=== PATIENT | female | born 1945 | race Caucasian/White ===

== ENCOUNTER → 2020-04-15 10:50 | Outpatient (CLI) | payer MEDICARE, SELFPAY ==
--- NOTE | 2020-04-15 | DI.RAD.S_ITS ---
PROCEDURE: FL JOINT INJECTION LARGE RT INDICATIONS: OSTEOARTHRITIS COMPARISON: None. TECHNIQUE: The indications, alternatives, benefits, risks, and complications of the procedure were explained to the patient. Written informed consent was obtained and placed in the chart. The patient was placed in an appropriate position on the fluoroscopy table, and a site was chosen for percutaneous access under fluoroscopic guidance. The site was prepped and draped in a sterile fashion. Local anesthetic was administered using a 1% lidocaine solution. A hypodermic or spinal needle was then used to access the symptomatic joint. Intra-articular location of the needle tip was confirmed by injecting a small amount of contrast, followed by steroid administration. The needle was then withdrawn, and a bandage applied to the puncture site. FINDINGS: Joint injected: Right hip Medications injected: 1 mL of 40 mg/mL Kenalog and 3 mL of 0.5% Ropivacaine in total. Patient's pain before injection: 8 out of 10. Patient's pain after injection: 1 out of 10. Complications: None. IMPRESSION: Successful fluoroscopically guided administration of steroid and anaesthetic solution into the right hip joint. Dictated by: Keyur Soto M.D. on 04/15/2020 at 13:04 Approved by: Keyur Soto M.D. on 04/15/2020 at 13:04
== END ==
PROVIDERS: PCP Physician Assistant; Referring Provider Counselor Mental Health; Visit Provider Counselor Mental Health
DX: M16.11 Unilateral primary osteoarthritis, right hip (principal)
CPT/HCPCS: 20610; 77002

== ENCOUNTER 2020-08-25 16:01 | Emergency (ER) | payer MEDICARE, SELFPAY ==
[2020-08-25 16:11] VITALS: BP 155/68; PULSE 79; RESP 18; TEMP 37.1; O2SAT 96; BMI 45.4
[2020-08-25] MEDS: ONDANSETRON 4 MG ODT PO (16:45)
--- NOTE | 2020-08-25 17:40 | ED_ITS ---
HPI - Recheck/Abnormal Lab/Rx General Chief Complaint: Recheck/Abnormal Lab/Rx Stated Complaint: low back and right leg pain Time Seen by Provider: 08/25/20 16:32 Source: patient and family Mode of arrival: Wheelchair Limitations: no limitations History of Present Illness HPI narrative: Patient is a 74 year female. She is an insulin-dependent diabetic. Has had 2 months of right-sided lower back pain radiating to her right leg. She had an MRI yesterday at an outside facility ordered by her primary doctor. She does have a referral in to see a auto clutch specialist. She is on muscle relaxers and also gabapentin did. She states that over the past several days verses been worsening. No urinary symptoms. States the last evening she was up all night crying because the pain. She contacted her primary doctor's office today who told her that she may need something stronger than the gabapentin and that she needed to come to the emergency department in order to get a prescription for this. Related Data Previous Rx's Medication Instructions Recorded hydrocodone-acetaminophen [[place]] 1 tab PO Q4H PRN #20 tab 08/25/20 prednisone 20 mg PO DAILY 2 Days #2 tab 08/25/20 Allergies Allergy/AdvReac Type Severity Reaction Status Date / Time Penicillins Allergy Unknown Verified 08/25/20 16:41 Review of Systems Constitutional Constitutional: Denies fever(s) ENT Ears, Nose, Mouth, and Throat: Denies vertigo and Denies dizziness Cardiovascular Cardiovascular: Denies chest pain and Denies dyspnea Respiratory Respiratory: Denies dyspnea Musculoskeletal Musculoskeletal: Denies arthralgias and Reports back pain Integumentary/Breasts Skin/Breast: Denies rash Neurologic Neurologic: Denies vertigo and Denies dizziness Hematologic/Lymphatic On Anticoagulants: No Patient History Medical History Diabetes Social History marital status: lives independently: Yes Exam Initial Vital Signs Initial Vital Signs: Vital Signs Temperature 98.7 F 08/25/20 16:11 Pulse Rate 79 08/25/20 16:11 Respiratory Rate 18 08/25/20 16:11 Blood Pressure 155/68 H 08/25/20 16:11 Pulse Oximetry 96 08/25/20 16:11 Const General: cooperative and comfortable Resp Effort & Inspection: normal respiratory effort Cardio Rate: regular rate Back/Spine/Pelvis Thoracic/Lumbar Spine: paraspinal tenderness Skin Lesions: no lesions Rashes: no rashes Neuro General: patient alert and patient awake Cognition: normal cognition Sensory Exam: other (Posterior thigh decreased sensation to touch) Extrem General: capillary refill normal Psych Appearance: grossly normal Course Orders Ordered: Discontinued Medications Hydromorphone HCl (Hydromorphone 1 Mg Inj) 1 mg IM NOW ONE Stop: 08/25/20 17:41 Last Admin: 08/25/20 17:48 Dose: 1 mg Documented by: SHAY Ondansetron HCl (Ondansetron 4 Mg Odt) 4 mg PO NOW ONE Stop: 08/25/20 16:42 Last Admin: 08/25/20 16:45 Dose: 4 mg Documented by: SHAY Prednisone (Prednisone 20 Mg Tablet) 20 mg PO NOW ONE Stop: 08/25/20 17:41 Last Admin: 08/25/20 17:49 Dose: 20 mg Documented by: SHAY Vital Signs Vital signs: Vital Signs - 8 hr 08/25/20 16:11 08/25/20 17:47 08/25/20 17:48 Temperature 98.7 F Pulse Rate 79 64 66 Respiratory Rate 18 Blood Pressure 155/68 H Pulse Oximetry 96 97 98 08/25/20 17:49 Temperature Pulse Rate Respiratory Rate Blood Pressure 149/67 H Pulse Oximetry MDM - Recheck/Abnormal Lab/Rx Lab Data Attestation: I reviewed the patient's lab results. Labs: Urine Dip Bedside Urine Glucose Negative Bedside Urine Bilirubin - Negative Bedside Urine Ketone - Negative Urine Specific [place] 1.015 Bedside Urine Occult Blood - Negative Bedside Urine pH 6.0 Bedside Urine Protein - Negative Bedside Urine Urobilinogen - Negative Bedside Urine Nitrite - Negative Bedside Urine Leukocytes - Negative Esterase [facility] Narrative Medical decision making narrative: Patient has low back pain with right-sided radiculopathy that his been present for the past 2 months. Her symptoms today are not new just worse than prior. Plan will be is to give her some pain medicine here in the emergency department. Tomorrow is her last dose of Robaxin and she has been on this for 2 months without any improvements I told her that she most likely can stop this is it is not helping. I told talk with her prima ry doctor about increasing her gabapentin. Will put her on a very short course of steroids. She understands this could increase her blood sugars and she is going to check this at home on a regular basis. Will start her on some pain medication. She is going to contact her primary doctor and also her spine provider for follow-up to discuss the MRI results which are unavailable for me to evaluate as they were done in outside facility. She was given return precautions. No indication for emergent surgical consultation today. She expressed understanding and agreement. Discharge Plan Departure Patient Disposition: Home Clinical Impression: Lumbar back pain with radiculopathy affecting right lower extremity Instructions: Low Back Pain, Exercise May Reduce Risk of Low Back Pain Activity Restrictions/Additional Instructions: I recommend that you stop taking the methocarbamol/Robaxin tomorrow is this medicine is unlikely helping any of your symptoms. I recommend you talk with your primary doctor about increasing your gabapentin. Continue to stay as active as possible. Keep all of your scheduled medical appointments. Return to the emergency department for any new or worsening symptoms Prescriptions: New prednisone 20 mg tablet 20 mg PO DAILY 2 Days Qty: 2 RF: 0 hydrocodone-acetaminophen [[place]] 5-325 mg tablet 1 tab PO Q4H PRN (Reason: pain) Qty: 20 RF: 0 Referrals: Sweetie Shook PA-C [Primary Care Provider] -
[2020-08-25 17:47] VITALS: PULSE 64; O2SAT 97
[2020-08-25 17:48] VITALS: PULSE 66; O2SAT 98
[2020-08-25] MEDS: HYDROMORPHONE 1 MG INJ IM (17:48)
[2020-08-25 17:49] VITALS: BP 149/67
[2020-08-25] MEDS: predniSONE 20 MG TABLET PO (17:49)
== END 2020-08-25 18:03 | disposition home or self-care (01) ==
PROVIDERS: Emergency Provider Emergency Medicine; PCP Physician Assistant
DX: M54.16 Radiculopathy, lumbar region (principal); E11.8 Type 2 diabetes mellitus with unspecified complications; Z79.4 Long term (current) use of insulin
CPT/HCPCS: 81003; 96372; 99282; 99283; J1170

== ENCOUNTER 2021-02-24 10:07 | Emergency (ER) | payer MEDICARE, SELFPAY ==
[2021-02-24 10:23] VITALS: BP 192/92; PULSE 80; RESP 18; TEMP 36.7; O2SAT 95; BMI 47.0
[2021-02-24 10:57] LABS: Add Manual Diff / Slide Review NO; Basophils Absolute Auto 100 /uL (0-100); Basophils Percent Auto 0.8 % (0-2); Eosinophils Absolute Auto 200 /uL (0-450); Hematocrit 39.7 % (36-46); Hemoglobin 13.6 g/dL (12.0-16.0); Lymphocytes Absolute Auto 2500 /uL (1100-4500); Lymphocytes Percent Auto 31.1 % (25-40); Mean Corpuscular HGB Conc 34.2 % (30-36); Mean Corpuscular Hemoglobin 30.4 PG (26-34); Monocytes Absolute Auto 500 /uL (0-900); Monocytes Percent Auto 5.9 % (3-14); Neutrophils Absolute Auto 4700 /uL (1500-7000); Neutrophils Percent Auto 59.2 % (50-75); Platelet Count 198 X10^3/uL (150-400); Red Blood Cell Count 4.46 X10^6/uL (4.0-5.2); Red Cell Distribution Width 13.4 % (11.6-14.8); White Blood Cell Count 7.9 X10^3/uL (4.5-11.0)
[2021-02-24 11:15] LABS: Alanine Aminotransferase 17 IU/L (<35); Albumin Globulin Ratio 1.2 (1.0-2.8); Alkaline Phosphatase 114 U/L (38-126); Aspartate Aminotransferase 23 IU/L (14-36); BUN Creatinine Ratio 26.4 (6-22); Bilirubin Total 0.8 mg/dL (0.2-1.3); Blood Urea Nitrogen 23 mg/dL (7-17); Calcium 9.4 mg/dL (8.4-10.2); Carbon Dioxide 29 mmol/L (22-32); Chloride 101 mmol/L (98-107); Estimated Glomerular Filt Rate > 60.0 mL/min (>60); Globulin 3.4 g/dL (1.7-4.1); Glucose 272 mg/dL (80-110); HEMOLYSIS 48 (0-50); Potassium 4.4 mmol/L (3.4-5.1); Sodium 137 mmol/L (137-145); Total Protein 7.4 g/dL (6.3-8.2)
[2021-02-24] MEDS: HYDROMORPHONE 0.5 MG INJ IV (13:36)
[2021-02-24] MEDS: FUROSEMIDE 40 MG/4 ML VIAL IV (13:38)
[2021-02-24] MEDS: cefTRIAXone 2,000 MG in SODIUM CHLORIDE 0.9% 100 ML 200 ML IV (13:38)
[2021-02-24] MEDS: OXYCODONE/ACETAMINOPHEN 5/325 TABLET 1 TAB PO (14:52)
--- NOTE | 2021-02-24 14:58 | ED_ITS ---
HPI - Extremity Injury (Lower) General Chief Complaint: Extremity Injury, Lower Stated Complaint: problem with left leg, blisters and pain Time Seen by Provider: 02/24/21 13:14 History of Present Illness HPI Narrative: 75-year-old woman with history of diabetes hypertension lower extremity edema and depression presents with 2 2 months of increased swelling in the lower extremities and last number of days increasing erythema and last 2 days significant pain bilaterally worse on the left side with fascicular lesions and increasing rash over the left anterior [place]. She also has a history of fibromyalgia and notes that her overall pain has been worse as this lower extremity issue has increased. She was seen by her primary care physician and it was recommended that she try to keep her feet as elevated as possible to help with lower extremity edema. She has been only moderately successful in being able to do this. She does not report fevers, chills, weakness, orthopnea, dyspnea, chest pain, palpitations, abdominal pain, dysuria or constipation. Related Data Previous Rx's Medication Instructions Recorded hydrocodone 5 mg-acetaminophen 325 1 tab PO Q4H PRN #20 tab 08/25/20 mg tablet ([place]) cephalexin 500 mg capsule 500 mg PO TID #30 cap 02/24/21 furosemide 20 mg tablet (Lasix) 20 mg PO DAILY #30 tab 02/24/21 oxycodone-acetaminophen 5 mg-325 1 tab PO Q6H PRN #20 tab 02/24/21 mg tablet potassium chloride 8 mEq 8 meq PO DAILY #30 cap 02/24/21 capsule,extended release Allergies Allergy/AdvReac Type Severity Reaction Status Date / Time Penicillins Allergy Unknown Verified 08/25/20 16:41 Review of Systems Review of Systems Narrative: Remainder of complete review of systems is otherwise unremarkable except for that included in the HPI. Patient History Medical History Depression Diabetes Fibromyalgia Hyperlipidemia Hypertension Lower leg edema Peripheral neuropathy Social History marital status: lives independently: Yes Smoking Status: Never smoker Smoking Status: Never smoker Substance Use Type: does not use Exam Narrative Exam Narrative: General: Healthy appearing, in mild acute distress. Able to give a complete and coherent history. Well-nourished well-developed HEENT: Moist mucous membranes, normal sclera with reactive pupils, Neck: No JVD, supple Respiratory: Lungs are clear to auscultation, no wheezing no rales no rhonchi. Full and symmetrical air movement Cardiac: Regular rate and rhythm no murmurs no bruits Abdomen: Soft, nontender, good bowel tones, no flank pain Skin: Developing chronic venous stasis changes bilaterally. Erythema over the left anterior [place] with some bullous lesions appreciated in the distal portion of that. Neurologic: Grossly neurologically intact with no obvious asymmetries or abnormalities Extremities: No trauma, 1+ nonpitting edema Psych: Cooperative, appropriate insight and affect Initial Vital Signs Initial Vital Signs: Vital Signs Temperature 98.1 F 02/24/21 10:23 Pulse Rate 80 02/24/21 10:23 Respiratory Rate 18 02/24/21 10:23 Blood Pressure 192/92 H 02/24/21 10:23 Pulse Oximetry 95 02/24/21 10:23 Course Orders Ordered: Discontinued Medications Furosemide (Furosemide 40 Mg/4 Ml Vial) 40 mg IV NOW ONE Stop: 02/24/21 13:16 Last Admin: 02/24/21 13:38 Dose: 40 mg Documented by: YULIA Hydromorphone HCl (Hydromorphone 0.5 Mg Inj) 0.5 mg IV Q15MIN PRN PRN Reason: Pain, Last Admin: 02/24/21 13:36 Dose: 0.5 mg Documented by: YULIA Ceftriaxone Sodium 2,000 mg/ (Sodium Chloride) 100 mls @ 200 mls/hr IV NOW ONE Stop: 02/24/21 13:16 Last Infusion: 02/24/21 14:15 Dose: 0 mls/hr Documented by: Admin: 02/24/21 13:38 Dose: 200 mls/hr Documented by: YULIA Oxycodone/Acetaminophen (Oxycodone/Acetaminophen 5/325 Tablet) 1 tab PO NOW ONE Stop: 02/24/21 14:48 Last Admin: 02/24/21 14:52 Dose: 1 tab Documented by: JOSE Vital Signs Vital signs: Vital Signs - 8 hr 02/24/21 15:44 Pulse Rate 70 Respiratory Rate 18 Blood Pressure 136/80 Pulse Oximetry 98 MDM - Extremity Injury (Lower) Lab Data Result diagrams: 02/24/21 10:45 02/24/21 10:45 Labs: Lab Results 02/24/21 02/24/21 02/24/21 Range/Units 10:45 10:45 10:45 WBC 7.9 (4.5-11.0) X10^3/uL RBC 4.46 (4.0-5.2) X10^6/uL Hgb 13.6 (12.0-16.0) g/dL Hct 39.7 (36-46) % MCV 89.0 (80-100) fL MCH 30.4 (26-34) PG MCHC 34.2 (30-36) % RDW 13.4 (11.6-14.8) % Plt Count 198 (150-400) X10^3/uL Neut % (Auto) 59.2 (50-75) % Lymph % (Auto) 31.1 (25-40) % [place] % (Auto) 5.9 (3-14) % Eos % (Auto) 3.0 (2-4) % Baso % (Auto) 0.8 (0-2) % Neut # (Auto) 4700 (8799-4819) /uL Lymph # (Auto) 2500 (6065-0860) /uL [place] # (Auto) 500 (0-900) /uL Eos # (Auto) 200 (0-450) /uL Baso # (Auto) 100 (0-100) /uL Sodium 137 (137-145) mmol/L Potassium 4.4 (3.4-5.1) mmol/L Chloride 101 (98-107) mmol/L Carbon Dioxide 29 (22-32) mmol/L BUN 23 H (7-17) mg/dL Creatinine 0.87 (0.52-1.04) mg/dL Estimated GFR > 60.0 (>60) mL/min BUN/Creatinine Ratio 26.4 H (6-22) Glucose 272 H (80-110) mg/dL Lactate 2.0 (0.7-2.1) mmol/L Calcium 9.4 (8.4-10.2) mg/dL Total Bilirubin 0.8 (0.2-1.3) mg/dL AST 23 (14-36) IU/L ALT 17 (<35) IU/L Alkaline Phosphatase 114 (38-126) U/L Total Protein 7.4 (6.3-8.2) g/dL Albumin 4.0 (3.5-5.0) g/dL Globulin 3.4 (1.7-4.1) g/dL Albumin/Globulin Ratio 1.2 (1.0-2.8) MDM Narrative Medical decision making narrative: 75-year-old woman presents with left lower extremity cellulitis in the setting of 2 months of increasing lower extremity e yobany. No signs or symptoms of congestive heart failure. Labs today's do not suggest sepsis. She is given IV ceftriaxone and IV Lasix in the emergency department. Using this single dose of 0.5 mg of Dilaudid for her overall pain and notes significant relief of pain and being able to relax for the 1st time in a number of days. Discussed options of admission verses discharge with oral antibiotics and Lasix. She prefers discharge at this time. Will have her complete the course Keflex and will start her on 30 days of Lasix to help with the chronic lower extremity edema. Also rest commended leg elevation and compression socks. She will follow-up with her primary care physician in the next 1-2 weeks regarding both infection and renal function given the addition of Lasix. She is safe for home discharge Discharge Plan Departure Patient Disposition: Home Clinical Impression: Lower leg edema Cellulitis of lower extremity Qualifiers: Laterality: left Qualified Code(s): L03.116 - Cellulitis of left lower limb Instructions: DI for Cellulitis -- Adult, DI for Edema Due to Venous Stasis Activity Restrictions/Additional Instructions: Thank you for coming in today You are developing an infection in your left leg and you do need to complete the cephalexin, antibiotic, that I have prescribed and electronically transmitted to [facility] in [place]. You were given IV antibiotics in the emergency department so you can start the pills tomorrow. The infection is partly related to the increased lower extremity edema. I have given you a prescription for furosemide/Lasix which is a water pill. I would like you to take 1 every morning to try to get some of the fluid out of your lower extremities. This medicine makes your body get rid of extra potassium so I have also given you a prescription for potassium. Please take both of these pills at the same time. With these medications, you will need to have your kidney function and potassium levels checked within a couple of weeks. Please schedule an appointment with your primary care physician to have the blood work checked and be re-evaluated for the lower extremity swelling. Keeping your feet elevated can help with the swelling and using some type of compression sock will also be helpful. If you have increasing fevers, weakness any confusion worsening redness or new symptoms you do need to return to the emergency department. Prescriptions: New cephalexin 500 mg capsule 500 mg PO TID Qty: 30 RF: 0 oxycodone-acetaminophen 5-325 mg tablet 1 tab PO Q6H PRN (Reason: pain) Qty: 20 RF: 0 furosemide [Lasix] 20 mg tablet 20 mg PO DAILY Qty: 30 RF: 0 potassium chloride 8 mEq capsule, extended release 8 meq PO DAILY Qty: 30 RF: 0 No Action hydrocodone-acetaminophen [[place]] 5-325 mg tablet 1 tab PO Q4H PRN (Reason: pain) Qty: 20 RF: 0
[2021-02-24 15:44] VITALS: BP 136/80; PULSE 70; RESP 18; O2SAT 98
== END 2021-02-24 15:45 | disposition home or self-care (01) ==
PROVIDERS: Emergency Provider Emergency Medicine
DX: L03.116 Cellulitis of left lower limb (principal); R60.0 Localized edema; R21 Rash and other nonspecific skin eruption
CPT/HCPCS: 80053; 83605; 85025; 96365; 96375; 99284; J0696; J1170; J1940

== ENCOUNTER → 2021-05-03 12:29 | Outpatient (CLI) | payer MEDICARE, SELFPAY ==
[2021-05-03 13:55] LABS: Add Manual Diff / Slide Review NO; Basophils Absolute Auto 0 /uL (0-100); Basophils Percent Auto 0.3 % (0-2); Eosinophils Absolute Auto 200 /uL (0-450); Eosinophils Percent Auto 2.2 % (2-4); Lymphocytes Absolute Auto 3000 /uL (1100-4500); Lymphocytes Percent Auto 29.1 % (25-40); Mean Corpuscular HGB Conc 33.5 % (30-36); Mean Corpuscular Hemoglobin 30.1 PG (26-34); Mean Corpuscular Volume 89.8 fL (80-100); Monocytes Absolute Auto 600 /uL (0-900); Monocytes Percent Auto 5.7 % (3-14); Neutrophils Absolute Auto 6500 /uL (1500-7000); Neutrophils Percent Auto 62.7 % (50-75); Platelet Count 234 X10^3/uL (150-400); Red Blood Cell Count 4.67 X10^6/uL (4.0-5.2); Red Cell Distribution Width 13.4 % (11.6-14.8); White Blood Cell Count 10.4 X10^3/uL (4.5-11.0)
[2021-05-03 14:19] LABS: Alanine Aminotransferase 15 IU/L (<35); Albumin 4.4 g/dL (3.5-5.0); Albumin Globulin Ratio 1.3 (1.0-2.8); Alkaline Phosphatase 108 U/L (38-126); Aspartate Aminotransferase 17 IU/L (14-36); Bilirubin Total 0.8 mg/dL (0.2-1.3); Blood Urea Nitrogen 15 mg/dL (7-17); Calcium 9.5 mg/dL (8.4-10.2); Carbon Dioxide 31 mmol/L (22-32); Chloride 101 mmol/L (98-107); Estimated Glomerular Filt Rate > 60.0 mL/min (>60); Globulin 3.3 g/dL (1.7-4.1); Glucose 212 mg/dL (80-110); HEMOLYSIS < 15 (0-50); Sodium 141 mmol/L (137-145); Total Protein 7.7 g/dL (6.3-8.2)
[2021-05-03 15:59] LABS: COVID19 -Nasal RAPID Negative (Negative)
== END ==
PROVIDERS: Referring Provider Physician Assistant; Visit Provider Physician Assistant
DX: R10.9 Unspecified abdominal pain (principal); Z20.822 Contact with and (suspected) exposure to COVID-19
CPT/HCPCS: 36415; 80053; 85025; 87635

== ENCOUNTER → 2021-09-21 13:42 | Outpatient (CLI) | payer MEDICARE, SELFPAY ==
--- NOTE | 2021-09-21 | DI.RAD.S_ITS ---
PROCEDURE: XR CHEST 2V INDICATIONS: cough TECHNIQUE: 2 views of the chest were acquired. COMPARISON: None. FINDINGS: Surgical changes and devices: None. Lungs and pleura: Lungs are clear. No pleural effusions or pneumothorax. Mediastinum: Mediastinal contours are normal. Heart size is normal. Bones and chest wall: No suspicious bony abnormalities. Soft tissues appear unremarkable. IMPRESSION: No acute cardiopulmonary abnormality. Dictated by: Jarek Cordova M.D. on 09/21/2021 at 14:36 Approved by: Jarek Cordova M.D. on 09/21/2021 at 14:36
[2021-09-21 15:47] LABS: Add Manual Diff / Slide Review NO; Basophils Absolute Auto 0 /uL (0-100); Basophils Percent Auto 0.3 % (0-2); Eosinophils Absolute Auto 300 /uL (0-450); Eosinophils Percent Auto 3.2 % (2-4); Hematocrit 39.3 % (36-46); Hemoglobin 13.5 g/dL (12.0-16.0); Lymphocytes Absolute Auto 3300 /uL (1100-4500); Lymphocytes Percent Auto 35.6 % (25-40); Mean Corpuscular HGB Conc 34.3 % (30-36); Mean Corpuscular Hemoglobin 30.6 PG (26-34); Mean Corpuscular Volume 89.1 fL (80-100); Monocytes Absolute Auto 500 /uL (0-900); Monocytes Percent Auto 5.7 % (3-14); Neutrophils Absolute Auto 5100 /uL (1500-7000); Neutrophils Percent Auto 55.2 % (50-75); Platelet Count 221 X10^3/uL (150-400); Red Blood Cell Count 4.41 X10^6/uL (4.0-5.2); Red Cell Distribution Width 13.3 % (11.6-14.8); White Blood Cell Count 9.3 X10^3/uL (4.5-11.0)
[2021-09-21 16:14] LABS: Alanine Aminotransferase 13 IU/L (<35); Albumin 3.7 g/dL (3.5-5.0); Albumin Globulin Ratio 1.3 (1.0-2.8); Alkaline Phosphatase 122 U/L (38-126); Aspartate Aminotransferase 15 IU/L (14-36); BUN Creatinine Ratio 17.2 (6-22); Bilirubin Total 0.7 mg/dL (0.2-1.3); Blood Urea Nitrogen 15 mg/dL (7-17); Calcium 9.3 mg/dL (8.4-10.2); Carbon Dioxide 35 mmol/L (22-32); Chloride 98 mmol/L (98-107); Estimated Glomerular Filt Rate > 60.0 mL/min (>60); Globulin 2.9 g/dL (1.7-4.1); Glucose 219 mg/dL (80-110); HEMOLYSIS < 15 (0-50); Potassium 4.4 mmol/L (3.4-5.1); Sodium 136 mmol/L (137-145); Total Protein 6.6 g/dL (6.3-8.2)
== END ==
PROVIDERS: Referring Provider Physician Assistant; Visit Provider Physician Assistant
DX: R05.9 Cough, unspecified (principal)
CPT/HCPCS: 36415; 71046; 80053; 85025

== ENCOUNTER → 2021-11-22 14:07 | Outpatient (CLI) | payer MEDICARE, SELFPAY ==
[2021-11-22 14:57] LABS: BUN Creatinine Ratio 16.9 (6-22); Blood Urea Nitrogen 14 mg/dL (7-17); Carbon Dioxide 26 mmol/L (22-32); Chloride 104 mmol/L (98-107); Estimated Glomerular Filt Rate > 60 mL/min (>60); Glucose 199 mg/dL (80-110); HEMOLYSIS < 15 (0-50); Potassium 4.3 mmol/L (3.4-5.1); Sodium 140 mmol/L (137-145)
== END ==
PROVIDERS: PCP Physician Assistant; Referring Provider Urology; Visit Provider Urology
DX: R31.21 Asymptomatic microscopic hematuria (principal); N39.0 Urinary tract infection, site not specified; N39.41 Urge incontinence; L90.0 Lichen sclerosus et atrophicus; Z77.22 Contact with and (suspected) exposure to environmental tobacco smoke (acute) (chronic); Z78.9 Other specified health status
CPT/HCPCS: 36415; 51798; 80048; 81002; 99215

== ENCOUNTER → 2021-12-09 09:16 | Outpatient (CLI) | payer MEDICARE, SELFPAY ==
--- NOTE | 2021-12-09 | DI.ECHO.S_ITS ---
[facility]---------+ [facility] +---------+ : : [address] : : : : [id number] : : : : Phone: [phone]+ Echocardiogram Report + + :Name: SUMMER BANKS Study Date: 12/09/2021 Height: 67 in : :[facility] ReadingLocation: Weight: 315 lb : : Gender: Female BSA: 2.5 m2 : :: 1945 Age: 76 yrs BP: 201/104 mmHg: :Reason For Study: Hypertension : :Ordering Physician: ROSIE, : :DREW Performed By: Devonte Johnson : :Referring: DREW VELEZ : + + Interpretation Summary The left ventricle is normal in size and wall thickness. Left ventricular systolic function is normal. The ejection fraction is estimated to be 60-65%. There are no focal wall motion abnormalities. Diastolic parameters suggest a relaxation abnormality of the left ventricle, consistent with probable normal filling pressures. The right ventricle is normal in size and function. Pulmonary artery pressures cannot be estimated because of the lack of a measurable TR jet velocity. Both atria are normal in size. There is no significant valvular heart disease. The aortic root is normal size. Procedure: A two-dimensional transthoracic echocardiogram with color flow and Doppler was performed. The study quality was technically adequate. There is no prior echocardiogram noted for this patient. Left Ventricle: The left ventricle is normal in size and wall thickness. Left ventricular systolic function is normal. The ejection fraction is estimated to be 60-65%. There are no focal wall motion abnormalities. Diastolic parameters suggest a relaxation abnormality of the left ventricle, consistent with probable normal filling pressures. Right Ventricle: The right ventricle is normal in size and function. Atria: Both atria are normal in size. The interatrial septum grossly appears intact with no obvious evidence for an atrial septal defect. Mitral Valve: The mitral valve is normal in structure and function. There is trace mitral regurgitation. Aortic Valve: The aortic valve is normal in structure and function. No aortic regurgitation is present. Tricuspid Valve: The tricuspid valve is normal in structure and function. No tricuspid regurgitation. Pulmonary artery pressures cannot be estimated because of the lack of a measurable TR jet velocity. Pulmonic Valve: The pulmonic valve is not well visualized. There is no pulmonic valvular regurgitation. There is no significant valvular heart disease. Great Vessels: The aortic root is normal size. The ascending aorta could not be visualized. The IVC is of normal diameter and collapses greater than 50% with a sniff. This suggests a low right atrial pressure of 3 mm Hg. Pericardium/ Pleura There is no pericardial effusion. There is no pleural effusion. MMode/2D Measurements & Calculations LVIDd: 5.1 cm LVOT diam: 2.0 cm LVIDs: 3.6 cm Ao root diam: 3.2 cm FS: 29.0 % IVSd: 0.94 cm LVPWd: 0.73 cm LV . diameter/BSA (cm/m^2): 2.1 LV sys. diameter/BSA (cm/m^2): 1.5 LA A2 area: 25.1 cm2 RA long axis: 5.5 cm LA A4 area: 21.5 cm2 RA area: 14.3 cm2 LA length (vol): 6.2 cm RA vol: 32.0 ml LA vol: 73.4 ml RA : 13.1 ml/m2 LA vol index: 29.9 ml/m2 IVC diam: 2.1 cm TAPSE: 3.0 cm Doppler Measurements & Calculations Ao V2 max: 149.8 cm/sec LVOT Max Cirilo: 110.6 cm/sec Ao V2 mean: 104.2 cm/sec LV V1 max P.9 mmHg Ao max P.0 mmHg LV V1 VTI: 24.0 cm Ao mean P.8 mmHg DONG(I,D): 2.2 cm2 Ao V2 VTI: 32.5 cm DONG(V,D): 2.2 cm2 sev ratio: 0.74 DONG indexed to BSA (cm^2/m^2): 0.91 MV E max cirilo: 87.1 cm/sec SV(LVOT): 72.2 ml MV A max cirilo: 98.7 cm/sec MV E/A: 0.88 Med Peak E' Cirilo: 6.5 cm/sec E/E' med: 13.4 Lat Peak E' Cirilo: 8.8 cm/sec E/E' lat: 9.9 E/e' average: 11.6 MV dec time: 0.20 sec Reading Physician:01:25 PM
--- NOTE | 2021-12-09 10:38 | DI.CT.S_ITS ---
PROCEDURE: CT ABDOMEN PELVIS WO/W CON INDICATIONS: Microscopic hematuria TECHNIQUE: Optional 5 mm thick noncontrast images acquired from the diaphragm to the symphysis pubis. After the administration of intravenous contrast, 5 mm thick images acquired from the diaphragm to the symphysis pubis after a 10-minute delay. 2 mm thick coronal and sagittal reformats were then performed of the kidneys and ureters. For radiation dose reduction, the following was used: automated exposure control, adjustment of mA and/or kV according to patient size. COMPARISON: None. FINDINGS: Image quality: Excellent. Lung bases: Mm left lower lobe nodules present on series 4, image 11. No priors are available for comparison. Urinary system: Both kidneys are normal in size, without hydronephrosis or nephrolithiasis on pre-contrast images. No perinephric fat stranding. There is normal bilateral renal enhancement. Renal calyces appear normal in morphology when filled with contrast. Opacified portions of both ureters demonstrate normal caliber. Bladder is poorly distended with an appearance of diffusely thickened wall. No calcified bladder stones. Other solid organs: Liver is enlarged with steatosis. Gallbladder is not visualized . Biliary system is non dilated. Pancreas enhances normally. Spleen is normal in size and enhancement. No adrenal nodules. Peritoneum and bowel: Bowel loops demonstrate normal wall thickness and caliber. No free fluid or air. Nodes and vessels: No retroperitoneal or mesenteric adenopathy by size criteria. Aorta and inferior vena cava are normal in size. Abdominal wall: No ventral hernias. Pelvis: No pathologic free pelvic fluid. No inguinal hernias or adenopathy. Bones: No suspicious bony lesions. No vertebral body compression fractures. IMPRESSION: No renal, ureteral or bladder calculi. Bladder demonstrates a diffusely thickened wall which could be secondary to incomplete distention. Similar appearance can also be seen with cystitis or chronic urinary retention and clinical correlation is recommended. Dictated by: Carmina Solis M.D. on 12/09/2021 at 12:02 Approved by: Carmina Solis M.D. on 12/09/2021 at 12:08
== END ==
PROVIDERS: PCP Physician Assistant; Referring Provider Urology; Visit Provider Urology
DX: R60.9 Edema, unspecified (principal); I10 Essential (primary) hypertension; R31.29 Other microscopic hematuria; N39.0 Urinary tract infection, site not specified; K76.0 Fatty (change of) liver, not elsewhere classified; R91.8 Other nonspecific abnormal finding of lung field
CPT/HCPCS: 74178; 93306

== ENCOUNTER 2021-12-26 16:29 | Emergency (ER) | payer MEDICARE, SELFPAY ==
[2021-12-26 16:54] VITALS: BP 178/75; PULSE 88; RESP 18; TEMP 37.2; O2SAT 98; BMI 48.9
--- NOTE | 2021-12-26 17:00 | DI.RAD.S_ITS ---
PROCEDURE: XR CHEST 1V INDICATIONS: cough TECHNIQUE: One view of the chest was acquired. COMPARISON: [facility], CR, XR CHEST 2V, 09/21/2021, 13:36. FINDINGS: Surgical changes and devices: None. Lungs and pleura: Lungs are clear. No pleural effusions or pneumothorax. Mediastinum: Mediastinal contours appear normal. Heart size is normal. Bones and chest wall: No suspicious bony lesions. Overlying soft tissues appear unremarkable. IMPRESSION: No acute cardiopulmonary disease process. Dictated by: Gracy Yeung MD, PhD on 12/26/2021 at 17:15 Approved by: Gracy Yeung MD, PhD on 12/26/2021 at 17:16
[2021-12-26 17:33] LABS: COVID19 -Nasal RAPID POSITIVE (Negative)
[2021-12-26 19:56] VITALS: BP 187/86; PULSE 80; RESP 18; TEMP 38.2; O2SAT 98
[2021-12-26] MEDS: ACETAMINOPHEN 325 MG TABLET 975 MG PO (20:14)
--- NOTE | 2021-12-26 20:16 | ED_ITS ---
HPI - URI/Sore Throat General Chief Complaint: Upper Respiratory Symptoms Stated Complaint: CANT CATCH BREATH HEADACHE RUNNY NOSE HEAVY CHEST Time Seen by Provider: 12/26/21 20:15 Source: patient Mode of arrival: Wheelchair History of Present Illness HPI Narrative: 76-year-old female nonsmoker with history of hypertension, hyperlipidemia presents with her in the chief complaint of about 7 days of upper respiratory symptoms including runny nose, nasal congestion, sneezing and cough with burning chest pain. She has had subjective fever and chills. She denies any significant work of breathing. She is nauseated but denies any vomiting. She denies abdominal pain. She is vaccinated against COVID denies any known exposures. Related Data Home Medications Medication Instructions Recorded Confirmed amlodipine PO 11/22/21 11/22/21 atorvastatin PO 11/22/21 11/22/21 benzonatate [Tessalon Perles] PO 11/22/21 11/22/21 duloxetine PO 11/22/21 11/22/21 gabapentin PO 11/22/21 11/22/21 insulin glargine [Lantus Solostar SUBCUT 11/22/21 11/22/21 U-100 Insulin] lisinopril PO 11/22/21 11/22/21 oxybutynin chloride PO 11/22/21 11/22/21 Previous Rx's Medication Instructions Recorded furosemide 20 mg tablet (Lasix) 20 mg PO DAILY #30 tab 02/24/21 potassium chloride 8 mEq 8 meq PO DAILY #30 cap 02/24/21 capsule,extended release Allergies Allergy/AdvReac Type Severity Reaction Status Date / Time Penicillins Allergy Unknown Verified 08/25/20 16:41 Review of Systems Review of Systems Narrative: GENERAL: Denies chills, fatigue, malaise, fever, sweats. HEENT: Denies sinus pain, ear pain, sore throat, difficulty swallowing, dizziness. RESPIRATORY: Denies dyspnea, cough, wheezing, hemoptysis, sputum. CARDIOVASCULAR: Denies chest pain, palpitations, orthopnea, edema, GASTROINTESTINAL: Denies nausea, vomiting, abdominal pain, diarrhea, constipation, melena. : Denies dysuria, frequency, incontinence, hematuria, urinary retention. MUSCULOSKELETAL: denies weakness, joint pain, or bony pain SKIN: Denies rash, skin lesions, or other NEUROLOGIC: Denies weakness, headache, numbness, change in speech, confusion, seizures, incoordination. PSYCHIATRIC: No concerning psychosocial issues. 12 point review of systems is negative except for those stated above Patient History Medical History (Updated 12/26/21 @ 20:27 by Adam Castano DO) Depression Diabetes Fibromyalgia History of arthritis History of chronic urinary tract infection History of depression Hx of migraine headaches Hyperlipidemia Hypertension Lichen sclerosus et atrophicus Lower leg edema Microscopic hematuria Peripheral neuropathy Secondhand smoke exposure Urge incontinence Surgical History Hx of abdominal hysterectomy Hx of appendectomy Hx of breast biopsy Hx of cholecystectomy Hx of total knee replacement Family History Mother Cancer CVA (cerebral vascular accident) Hyperlipidemia Hypertension Father Hypertension Hyperlipidemia CAD (coronary artery disease) Sister Hyperlipidemia Hypertension Diabetes mellitus Multiple kidney stones Migraines Brother Hyperlipidemia Hypertension Migraines Eczema Social History marital status: number of children: 4 lives independently: Yes Smoking Status: Never smoker alcohol intake: current caffeine: Yes Type(s) of exercise: walking frequency: 3-4 times per week duration: 15-30 minutes/day Smoking Status: Never smoker alcohol intake frequency: 0-2 drinks per day Substance Use Type: does not use Exam Initial Vital Signs Initial Vital Signs: Vital Signs Temperature 98.9 F 12/26/21 16:54 Pulse Rate 88 12/26/21 16:54 Respiratory Rate 18 12/26/21 16:54 Blood Pressure 178/75 H 12/26/21 16:54 Pulse Oximetry 98 12/26/21 16:54 Course Orders Ordered: Discontinued Medications Acetaminophen (Acetaminophen 325 Mg Tablet) 975 mg PO NOW ONE Stop: 12/26/21 19:59 Last Admin: 12/26/21 20:14 Dose: 975 mg Documented by: ATAYLOR Vital Signs Vital signs: Vital Signs - 8 hr 12/26/21 16:54 12/26/21 19:56 Temperature 98.9 F 100.8 F H Pulse Rate 88 80 Respiratory Rate 18 18 Blood Pressure 178/75 H 187/86 H Pulse Oximetry 98 98 MDM - URI/Sore Throat Lab Data Labs: Lab Results 12/26/21 Range/Units 17:02 SARS-CoV-2 (PCR) Positive H (Negative) Imaging Data Chest x-ray: Radiologist's Impression: Ninfa Hercules??76??F??1945 ? Allergy/Adv: Penicillins Close Chest X-Ray (Signed) Gracy Yeung - 12/26/21 Abdomen/Pelvis CT (Signed) Dereje Solisley - 12/09/21 Echocardiogram Ultrasound (Signed) Keshav Guerrero - 12/09/21 Chest X-Ray (Signed) Jarek Cordova - 09/21/21 Joint Aspiration/Injection (Signed) Keyur Soto - 04/15/20 Launch?Image [address] [address] XRay Report Signed Patient: Ninfa Hercules MR#: [id number] : 1945 Acct:[id number] Age/Sex: 76 / F Date of Service: 12/26/21 Loc: ED Accession Number: [id number] ?? Procedure: XR chest 1V Ordering Provider: Gladys Crow MD PROCEDURE:? XR CHEST 1V ? INDICATIONS:? cough ? TECHNIQUE:? One view of the chest was acquired.? ? COMPARISON:? [facility], , XR CHEST 2V, 09/21/2021, 13:36. ? FINDINGS:? ? Surgical changes and devices:? None.? ? Lungs and pleura:? Lungs are clear.? No pleural effusions or pneumothorax.? ? Mediastinum:? Mediastinal contours appear normal.? Heart size is normal.? ? Bones and chest wall:? No suspicious bony lesions.? Overlying soft tissues appear unremarkable.? ? IMPRESSION:? No acute cardiopulmonary disease process. ? ? Dictated by: Gracy Yeung MD, PhD on 12/26/2021 at 17:15 ? ? Approved by: Gracy Yeung MD, PhD on 12/26/2021 at 17:16 ? [facility] Narrative Medical decision making narrative: 76-year-old female with COVID symptoms for the past 7 days presents with her who has similar symptoms. She has had hacking cough, burning in her chest along with some nausea. She is in no significant respiratory distress, no use of accessory muscles or need for supplemental oxygen. Chest x-ray is unremarkable. EKG performed as she mentioned the tightness in her chest which is nonischemic. She denies exertional symptoms, dizziness, diaphoresis or other cardiac equivalents and this tightness is thought to be related to COVID. I had extensive discussion with the patient and her about return precautions and they have had their questions answered to their apparent satisfaction Discharge Plan Departure Patient Disposition: Home Clinical Impression: COVID-19 Instructions: DI for COVID-19 (Suspected or Confirmed ) Activity Restrictions/Additional Instructions: *You have been diagnosed with [ COVID-19] *What to do: * per recommendations from the CDC and the [facility] Department of Health * stay home except to get medical care. Restrict activities outside your home, except for getting medical care. Do not go to work, school, or public areas. Avoid using public transportation, ride sharing, or taxis. * separate yourself from other people in your home. * call ahead before visiting your doctor * Wear a facemask * Cover your coughs and sneezes * Clean your hands often * Avoid sharing household items * Clean all high-touch services every day * Monitor your symptoms and seek prompt medical attention if your illness is worsening, particularly with difficulty in breathing. You may discontinue your isolation when: 1. You have been fever-free for at least 24 hours without the use of fever reducing medication, AND 2. Your symptoms are getting better, AND 3. At least 5 days have passed since symptoms first appeared 4. If you have fever, continue to stay home until fever resolves Individuals with laboratory confirmed COVID-19 who have not had any symptoms may discontinue home isolation when at least 5 days have passed since the date of their first COVID-19 diagnostic test and have had no subsequent illness You should notifiy any friends and family that have been in close contact *If up to date on COVID Vaccines, then they do not need to quarantine unless symptoms develop. Get tested on day 5 (or sooner if symptoms develop). Take precautions and watch for symptoms until day 10 *If NOT up to date on COVID Vaccines, then CDC recommends quarantine for at least 5 full days. Wear a well fitted mask at home if you must be around others. If they develop symptoms they should get tested. If they remain asymptomatic they should get tested on day 5. They should take precautions and monitor for symptoms until day 10. Prescriptions: No Action furosemide [Lasix] 20 mg tablet 20 mg PO DAILY Qty: 30 0RF potassium chloride 8 mEq capsule, extended release 8 meq PO DAILY Qty: 30 0RF gabapentin PO 0RF benzonatate [Tessalon Perles] PO 0RF insulin glargine [Lantus Solostar U-100 Insulin] SUBCUT 0RF lisinopril PO 0RF atorvastatin PO 0RF amlodipine PO 0RF duloxetine PO 0RF oxybutynin chloride PO 0RF Referrals: Sweetie Shook PA-C [Primary Care Provider] -
[2021-12-26 20:54] VITALS: TEMP 37.3
== END 2021-12-26 20:55 | disposition home or self-care (01) ==
PROVIDERS: Emergency Medicine; Emergency Provider Emergency Medicine; PCP Physician Assistant
DX: U07.1 COVID-19 (principal); R07.89 Other chest pain
CPT/HCPCS: 71045; 87635; 93005; 99283; C9803

== ENCOUNTER 2022-03-29 16:28 | Emergency (ER) | payer MEDICARE, SELFPAY ==
[2022-03-29] VITALS (14 sets, daily range): BP systolic 149–176; BP diastolic 69–75; PULSE 77–93; RESP 15–25; TEMP 36.4; O2SAT 93–97; BMI 46.3
--- NOTE | 2022-03-29 16:44 | DI.RAD.S_ITS ---
PROCEDURE: XR CHEST 1V INDICATIONS: chest pain TECHNIQUE: One view of the chest was acquired. COMPARISON: [facility], [place], XR CHEST 1V, 12/26/2021, 16:55. FINDINGS: Surgical changes and devices: None. Lungs and pleura: Lungs are clear. No pleural effusions or pneumothorax. Mediastinum: Mediastinal contours appear normal. Heart size is normal. Bones and chest wall: No suspicious bony lesions. Overlying soft tissues appear unremarkable. IMPRESSION: Stable radiographic evaluation of the chest without acute cardiopulmonary abnormalities or focal airspace disease. Dictated by: Shon Agee M.D. on 03/29/2022 at 17:22 Approved by: Shon Agee M.D. on 03/29/2022 at 17:22
--- NOTE | 2022-03-29 21:51 | DI.CT.S_ITS ---
PROCEDURE: CT ANGIO HEAD AND NECK INDICATIONS: Dizziness TECHNIQUE: Pre-contrast 4.5 mm thick sections acquired from the foramen magnum to the vertex. After the administration of intravenous contrast, 1 mm thick sections acquired from the aortic arch through the [place] of [place]. Post-contrast 4.5 mm thick sections then re-acquired from the foramen magnum to the vertex. 3-dimensional qmrgnao-trbtwxybd-jlcazftwxs (MIP) and/or volume rendering reformats were acquired of the central intracranial vasculature and neck separately. For radiation dose reduction, the following was used: automated exposure control, adjustment of mA and/or kV according to patient size. COMPARISON: None. FINDINGS: Image quality: Excellent. BRAIN: CSF spaces: Ventricles are normal in size and shape. Basal cisterns are patent. No extra-axial fluid collections. Brain: No midline shift. No intracranial bleeds or masses. Alejandro-white matter interface appears intact. Age-appropriate volume loss and mild periventricular white matter hypodensity. Skull and face: Calvarium and facial bones appear intact, without suspicious lesions. Orbits appear normal. Sinuses: Sinuses and mastoids are clear. HEAD CT ANGIOGRAPHY: Anterior circulation: Moderate atherosclerotic calcification the intracranial internal carotid arteries bilaterally. Intracranial internal carotid arteries are normal in size and flow. The flow within the paired anterior cerebral arteries is normal and symmetric. The flow within the middle cerebral arteries is normal and symmetric. The anterior communicating artery is seen. No aneurysms are seen. Posterior circulation: Visualized portions of the vertebral arteries demonstrate normal caliber, and join to form a normal appearing basilar artery. Flow within the posterior cerebral arteries is normal and symmetric. No aneurysms are seen. NECK CT ANGIOGRAPHY: Carotid system: The great vessels demonstrate a conventional anatomy as they arise from the aortic arch. The origins of the common carotid arteries appear patent. The common carotid arteries demonstrate normal caliber and courses. Trace carotid bulb calcification of the left without luminal stenosis. The bifurcation regions are both widely patent. The internal carotid arteries demonstrate normal calibers and courses. Posterior circulation: Calcification at the right vertebral artery origin. The left origin appears widely patent. The more superior extracranial portions of both vertebral arteries also demonstrate normal courses and calibers. They join to form a normal appearing basilar artery. Soft tissues: The thyroid gland is diffusely enlarged. Occasional punctate calcification. Bones: No suspicious bony lesions. Visualized cervical spine appears normally aligned. IMPRESSION: 1. No CT evidence of acute intracranial process. 2. No evidence of arterial occlusion, aneurysm, or dissection. 3. Moderate intracranial carotid artery atherosclerotic calcification bilaterally. 4. Thyromegaly. Correlate with lab values and consider thyroid ultrasound as an outpatient for further evaluation. Any quantitative measurements of stenosis were performed using NASCET criteria. Dictated by: Yue Mackenzie M.D. on 03/30/2022 at 0:18 Approved by: Yue Mackenzie M.D. on 03/30/2022 at 0:25
--- NOTE | 2022-03-29 21:52 | ED_ITS ---
HPI - Dizziness General Chief Complaint: Dizziness Stated Complaint: dizzy,short of breath, stumbling, cotton mouth Time Seen by Provider: 03/29/22 20:38 Mode of arrival: Wheelchair History of Present Illness HPI Narrative: Patient here with daughter. Patient lives with daughter. Patient complains 3 weeks, again 3 weeks of constant daily dizziness. She states she is very much off balance. She feels like she is spinning. She feels like she is walking more to the left when she does walk. She has history vertigo when she had fluid in her ears. However this time to denies any ear problems. No slurred speech facial droop. No chest pain palpitations. No numbness tingling or weakness. Did have prior history of TIA with out any residual deficits. Blood pressure noted, she states her blood pressure has been elevated during this course as well. She has new primary care provider that sent her here today for evaluation of this problem. Primary care has not seen patient for this problem. No recent illness. No cough cold congestion fever chills. Fast exam is negative. Patient dizziness worse with moving her eyes. Related Data Home Medications Medication Instructions Recorded Confirmed amlodipine PO 11/22/21 11/22/21 atorvastatin PO 11/22/21 11/22/21 benzonatate [Tessalon Perles] PO 11/22/21 11/22/21 duloxetine PO 11/22/21 11/22/21 gabapentin PO 11/22/21 11/22/21 insulin glargine [Lantus Solostar SUBCUT 11/22/21 11/22/21 U-100 Insulin] lisinopril PO 11/22/21 11/22/21 oxybutynin chloride PO 11/22/21 11/22/21 Previous Rx's Medication Instructions Recorded furosemide 20 mg tablet (Lasix) 20 mg PO DAILY #30 tabs 02/24/21 potassium chloride 8 mEq 8 meq PO DAILY #30 caps 02/24/21 capsule,extended release meclizine 25 mg tablet 25 mg PO TID PRN dizziness #18 tabs 03/30/22 Allergies Allergy/AdvReac Type Severity Reaction Status Date / Time Penicillins Allergy Unknown Verified 03/29/22 16:44 Review of Systems Review of Systems Narrative: GENERAL: Denies chills, fatigue, malaise, fever, sweats. HEENT: Denies sinus pain, ear pain, sore throat RESPIRATORY: Denies dyspnea, cough CARDIOVASCULAR: Denies chest pain, palpitations GASTROINTESTINAL: Denies nausea, vomiting, abdominal pain : Denies dysuria, frequency, hematuria MUSCULOSKELETAL: denies muscle or bony pain SKIN: Denies rash, skin lesions NEUROLOGIC: Denies weakness, numbness, positive for dizziness, negative slurred speech or facial droop ROS Unobtainable: All systems reviewed & are unremarkable except as noted in HPI and below Patient History Medical History Depression Diabetes Fibromyalgia History of arthritis History of chronic urinary tract infection History of depression Hx of migraine headaches Hyperlipidemia Hypertension Lichen sclerosus et atrophicus Lower leg edema Microscopic hematuria Peripheral neuropathy Secondhand smoke exposure Urge incontinence Surgical History Hx of abdominal hysterectomy Hx of appendectomy Hx of breast biopsy Hx of cholecystectomy Hx of total knee replacement Family History Mother Cancer CVA (cerebral vascular accident) Hyperlipidemia Hypertension Father Hypertension Hyperlipidemia CAD (coronary artery disease) Sister Hyperlipidemia Hypertension Diabetes mellitus Multiple kidney stones Migraines Brother Hyperlipidemia Hypertension Migraines Eczema Social History marital status: number of children: 4 lives independently: Yes Smoking Status: Never smoker alcohol intake: current caffeine: Yes Type(s) of exercise: walking frequency: 3-4 times per week duration: 15-30 minutes/day Smoking Status: Never smoker alcohol intake frequency: 0-2 drinks per day Substance Use Type: does not use Exam Narrative Exam Narrative: GENERAL: in no distress, not toxic not dyspneic HEAD: Normocephalic. EYES: Pupils equal round No scleral icterus. ENT: Mucous membranes moist. NECK: Trachea midline. No carotid bruit CARDIOVASCULAR: Regular rate and rhythm without murmurs RESPIRATORY: Clear to auscultation. Breath sounds equal bilaterally. No wheezes, rales, or rhonchi. GASTROINTESTINAL: Abdomen soft, non-tender EXTREMITIES: No gross deformities. BACK: No flank tenderness. NEURO: AOx4. Clear speech no facial droop. ?Light touch intact to bilateral face hands and feet. ?Strong equal gift shop assistant bilaterally and ankle flexion hip flexion and knee flexion. ?Strong bilateral patellar reflexes. ?No pronator drift. ?Sqchor-he-igzc intact. Increased dizziness with moving eyes left and right. Dcyr-va-fvma intact. SKIN: Warm and dry PSYCH: Not anxious, is cooperative Initial Vital Signs Initial Vital Signs: Vital Signs Temperature 97.6 F 03/29/22 16:40 Pulse Rate 93 H 03/29/22 16:40 Respiratory Rate 18 03/29/22 16:40 Blood Pressure 151/73 H 03/29/22 16:40 Pulse Oximetry 96 03/29/22 16:40 Oxygen Delivery Method 03/29/22 16:40 Scores NIH Stroke Scale Level of Conciousness: Alert, keenly responsive Ask month/age: Answers both questions correctly. Open/close eyes, close hand: Performs both tasks correctly Best gaze horizontal: Normal Visual peterson: No visual loss Facial palsy: Normal symetrical movement Left arm drift: No drift for full 10 sec Right arm drift: No drift for full 10 sec Left leg drift: No drift for full 5 sec Right leg drift: No drift for full 5 sec Limb ataxia: Absent Sensory on face/arms/legs: Normal, no sensory loss Best language: No aphasia, normal Dysarthria: Normal Extinction or inattention: No abnormality Total NIH Stroke scale score: 0 Course Course Course Narrative: No new issues during course of stay Orders Ordered: ED Orders 03/29/22 16:44 XR chest 1V Stat 03/29/22 16:51 EKG-12 Lead Stat 03/29/22 21:51 CT angio head and neck Stat 03/29/22 22:23 BNP [NT-proBNP (BNP-Adult 18+)] Stat Complete Blood Count AUTO DIFF Stat Comprehensive Metabolic Panel Stat Lipase Stat Magnesium Stat Troponin & CK Cardiac Panel Stat Discontinued Medications Acetaminophen (Acetaminophen 325 Mg Tablet) 975 mg PO NOW ONE Stop: 03/29/22 23:45 Last Admin: 03/29/22 23:52 Dose: 975 mg Documented By: CRISTIN Sodium Chloride (Normal Saline 0.9%) 500 mls @ 1,000 mls/hr IV BOLUS ONE Stop: 03/29/22 22:20 Last Infusion: 03/29/22 23:41 Dose: 0 mls/hr Documented By: Admin: 03/29/22 22:02 Dose: 1,000 mls/hr Documented By: MADAI Meclizine HCl (Meclizine Hcl 12.5 Mg Tablet) 50 mg PO NOW ONE Stop: 03/29/22 21:53 Last Admin: 03/29/22 22:01 Dose: 50 mg Documented By: MADAI Reevaluation(s) Reevaluation #1: Blood pressure 146/73. Much better now. Without blood pressure medication. Dizziness has significantly improved with Antivert. Patient able to track my finger horizontally without dizziness. Up and walking with a walker without difficulty. Patient is not favoring left or right with walking. Dizziness is much better. She uses a cane at home to walk. Patient and daughter desires discharge home. They are comfortable with discharge home. Return precautions reviewed with them. I did review with them CT angiogram showing moderate atherosclerotic calcification bilaterally however ongoing symptoms for 6 weeks and appropriate for outpatient follow-up for echocardiogram and MRI. They agree with treatment plan. Patient much more relieved that her symptoms have improved with meclizine Time: 00:49 Vital Signs Vital signs: Vital Signs - 8 hr 03/29/22 19:31 03/29/22 19:32 03/29/22 19:32 Temperature 97.5 F L Pulse Rate 81 85 Respiratory Rate Blood Pressure 175/75 H 176/75 H Pulse Oximetry 96 97 03/29/22 20:00 03/29/22 20:03 03/29/22 20:03 Temperature Pulse Rate 79 79 Respiratory Rate 15 18 Blood Pressure 149/69 H Pulse Oximetry 96 96 03/29/22 20:30 03/29/22 20:31 03/29/22 20:31 Temperature Pulse Rate 83 83 Respiratory Rate 17 19 Blood Pressure 168/75 H Pulse Oximetry 94 94 03/29/22 21:00 03/29/22 21:01 03/29/22 21:01 Temperature Pulse Rate 85 85 Respiratory Rate 19 20 Blood Pressure 161/74 H Pulse Oximetry 93 93 03/29/22 21:30 03/29/22 21:31 03/29/22 21:31 Temperature Pulse Rate 83 85 Respiratory Rate 19 21 Blood Pressure 162/72 H Pulse Oximetry 95 95 03/29/22 22:00 03/29/22 22:30 03/29/22 23:32 Temperature Pulse Rate 78 77 80 Respiratory Rate 18 25 H Blood Pressure Pulse Oximetry 95 96 96 03/30/22 00:00 03/30/22 00:30 03/30/22 00:40 Temperature Pulse Rate 67 81 Respiratory Rate 24 22 Blood Pressure 146/73 H Pulse Oximetry 96 95 03/30/22 00:40 Temperature Pulse Rate 80 Respiratory Rate 23 Blood Pressure Pulse Oximetry 95 MDM - Dizziness Differential Diagnosis Differential diagnosis: Likely adverse reaction to drug, benign paroxysmal positional vertigo, orthostatic hypotension, vertebral basilar insufficiency, c erebrovascular accident, acute vestibular neuronitis and transient cerebral ischemia Lab Data Result diagrams: 03/29/22 22:23 03/29/22 22:23 Labs: Lab Results 03/29/22 03/29/22 03/29/22 Range/Units 22:23 22:23 22:23 WBC 8.7 (4.5-11.0) X10^3/uL RBC 4.56 (4.0-5.2) X10^6/uL Hgb 13.8 (12.0-16.0) g/dL Hct 40.3 (36-46) % MCV 88.4 (80-100) fL MCH 30.4 (26-34) PG MCHC 34.3 (30-36) % RDW 13.7 (11.6-14.8) % Plt Count 206 (150-400) X10^3/uL Neut % (Auto) 60.4 (50-75) % Lymph % (Auto) 29.5 (25-40) % O'Brien % (Auto) 5.8 (3-14) % Eos % (Auto) 3.7 (2-4) % Baso % (Auto) 0.6 (0-2) % Neut # (Auto) 5300 (9259-8241) /uL Lymph # (Auto) 2600 (5625-5303) /uL O'Brien # (Auto) 500 (0-900) /uL Eos # (Auto) 300 (0-450) /uL Baso # (Auto) 100 (0-100) /uL Sodium 139 (137-145) mmol/L Potassium 3.9 (3.4-5.1) mmol/L Chloride 101 (98-107) mmol/L Carbon Dioxide 30 (22-32) mmol/L BUN 16 (7-17) mg/dL Creatinine 0.80 (0.52-1.04) mg/dL Estimated GFR > 60 (>60) mL/min BUN/Creatinine Ratio 20.0 (6-22) Glucose 257 H (80-110) mg/dL Calcium 8.5 (8.4-10.2) mg/dL Magnesium 2.0 (1.6-2.3) mg/dL Total Bilirubin 0.6 (0.2-1.3) mg/dL AST 18 (14-36) IU/L ALT 15 (<35) IU/L Alkaline Phosphatase 95 (38-126) U/L Total Creatine Kinase 52 (30-135) U/L CK-MB (CK-2) TNP CK-MB (CK-2) Rel Index TNP Troponin I < 0.012 (0.01-0.034) ng/mL NT-Pro-B Natriuret Pep 130 H (<125) pg/mL Total Protein 6.9 (6.3-8.2) g/dL Albumin 3.7 (3.5-5.0) g/dL Globulin 3.2 (1.7-4.1) g/dL Albumin/Globulin Ratio 1.2 (1.0-2.8) Lipase 40 (23-300) U/L Imaging Data Chest x-ray: Radiologist's Impression: [address] [address] XRay Report Signed Patient: Ninfa Hercules MR#: [id number] : 1945 Acct:[id number] Age/Sex: 76 / F Date of Service: 03/29/22 Loc: ED Accession Number: [id number] ?? Procedure: XR chest 1V Ordering Provider: Marie Pak D.O. PROCEDURE:? XR CHEST 1V ? INDICATIONS:? chest pain ? TECHNIQUE:? One view of the chest was acquired.? ? COMPARISON:? [facility], CR, XR CHEST 1V, 12/26/2021, 16:55. ? FINDINGS:? ? Surgical changes and devices:? None.? ? Lungs and pleura:? Lungs are clear.? No pleural effusions or pneumothorax.? ? Mediastinum:? Mediastinal contours appear normal.? Heart size is normal.? ? Bones and chest wall:? No suspicious bony lesions.? Overlying soft tissues appear unremarkable.? ? IMPRESSION:? Stable radiographic evaluation of the chest without acute cardiopulmonary abnormalities or focal airspace disease. ? Dictated by: Shon Agee M.D. on 03/29/2022 at 17:22 ? ? Approved by: Shon Agee M.D. on 03/29/2022 at 17:22 ? CTA - brain/neck: Radiologist's Impression: [address] [address] [address] Scan Report Signed Patient: Ninfa Hercules MR#: [id number] : 1945 Acct:[id number] Age/Sex: 76 / F Date of Service: 03/29/22 Loc: ED Accession Number: [id number] ?? Procedure: CT angio head and neck Ordering Provider: Wilmer Javed MD PROCEDURE:? CT ANGIO HEAD AND NECK ? INDICATIONS:? Dizziness ? TECHNIQUE:? Pre-contrast 4.5 mm thick sections acquired from the foramen magnum to the vertex.? After the administration of intravenous contrast, 1 mm thick sections acquired from the aortic arch through the [place] of [place].? Post-contrast 4.5 mm thick sections then re- acquired from the foramen magnum to the vertex.? 3-dimensional dmwaxrw-ddnrdtdiz-cajbgosskd (MIP) and/or volume rendering reformats were acquired of the central intracranial vasculature and neck separately. For radiation dose reduction, the following was used:? automated exposure control, adjustment of mA and/or kV according to patient size.? ? COMPARISON:? None. ? FINDINGS:? Image quality:? Excellent.? ? BRAIN:? CSF spaces:? Ventricles are normal in size and shape.? Basal cisterns are patent.? No extra-axial fluid collections.? ? Brain:? No midline shift.? No intracranial bleeds or masses.? Alejandro-white matter interface appears intact.? Age-appropriate volume loss and mild periventricular white matter hypodensity. ? Skull and face:? Calvarium and facial bones appear intact, without suspicious lesions.? Orbits appear normal.? ? Sinuses:? Sinuses and mastoids are clear.? ? HEAD CT ANGIOGRAPHY:? Anterior circulation:? Moderate atherosclerotic calcification the intracranial internal carotid arteries bilaterally.? Intracranial internal carotid arteries are normal in size and flow.? The flow within the paired anterior cerebral arteries is normal and symmetric. ?The flow within the middle cerebral arteries is normal and symmetric.? The anterior communicating artery is seen.? No aneurysms are seen.? ? Posterior circulation:? Visualized portions of the vertebral arteries demonstrate normal caliber, and join to form a normal appearing basilar artery.? Flow within the posterior cerebral arteries is normal and symmetric.? No aneurysms are seen.? ? NECK CT ANGIOGRAPHY:? Carotid system:? The great vessels demonstrate a conventional anatomy as they arise from the aortic arch.? The origins of the common carotid arteries appear patent.? The common carotid arteries demonstrate normal caliber and courses.? Trace carotid bulb calcification of the left without luminal stenosis.? The bifurcation regions are both widely patent.? The internal carotid arteries demonstrate normal calibers and courses.? ? Posterior circulation:? Calcification at the right vertebral artery origin.? The left origin appears widely patent.? The more superior extracranial portions of both vertebral arteries also demonstrate normal courses and calibers.? They join to form a normal appearing basilar artery.? ? Soft tissues:? The thyroid gland is diffusely enlarged.? Occasional punctate calcification. ? Bones:? No suspicious bony lesions.? Visualized cervical spine appears normally aligned.? IMPRESSION:? ? 1. No CT evidence of acute intracranial process. ? 2. No evidence of arterial occlusion, aneurysm, or dissection. ? 3. Moderate intracranial carotid artery atherosclerotic calcification bilaterally. ? 4. Thyromegaly.? Correlate with lab values and consider thyroid ultrasound as an outpatient for further evaluation.? ? Any quantitative measurements of stenosis were performed using NASCET criteria.? ? ? Dictated by: Yue Mackenzie M.D. on 03/30/2022 at 0:18 ? ? Approved by: Yue Mackenzie M.D. on 03/30/2022 at 0:25 ? ECG Data Interpretation: Normal sinus rhythm rate [address] elevation or depression MDM Narrative Medical decision making narrative: Appropriate for discharge home. Exam and laboratory studies and imaging are reassuring. Patient improved significantly with meclizine. Likely vertigo diagnosis but not limited to this differential. Did review with patient and daughter Clinically likely vertigo with conservative treatment with meclizine. Likely not stroke. However given timeframe of 3 weeks of symptoms. Appropriate for outpatient follow-up. Not requiring any immediate intervention neurologically Discharge Plan Departure Patient Disposition: Home Clinical Impression: Vertigo Instructions: DI for Vertigo Activity Restrictions/Additional Instructions: Return if worse if any questions or concerns or worsening dizziness. Be sure to see your family doctor this week for re-evaluation and may need referral to Neurology or ear nose and throat clinic. 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 In addition, you may need referral for physical therapy by your family doctor as well. Be sure to use your walker or cane at home. You will need to schedule outpatient MRI of the brain with family doctor as well. Prescriptions: New meclizine 25 mg tablet 25 mg PO TID PRN (Reason: dizziness) Qty: 18 0RF No Action furosemide [Lasix] 20 mg tablet 20 mg PO DAILY Qty: 30 0RF potassium chloride 8 mEq capsule, extended release 8 meq PO DAILY Qty: 30 0RF gabapentin PO benzonatate [Tessalon Perles] PO insulin glargine [Lantus Solostar U-100 Insulin] SUBCUT lisinopril PO atorvastatin PO amlodipine PO duloxetine PO oxybutynin chloride PO Referrals: Sweetie Shook PA-C [Primary Care Provider] - Visit Report Forms: Patient Portal/API
[2022-03-29] MEDS: MECLIZINE HCL 12.5 MG TABLET 50 MG PO (22:01)
[2022-03-29] MEDS: SODIUM CHLORIDE 0.9% 500 ML 1000 ML IV (22:02)
--- NOTE | 2022-03-29 22:20 | PC.NURSE ---
Stepan Kettle Coordinator student attempted peripheral lab draw, unable to obtain. Lab called.
[2022-03-29 22:43] LABS: Add Manual Diff / Slide Review NO; Basophils Absolute Auto 100 /uL (0-100); Basophils Percent Auto 0.6 % (0-2); Eosinophils Absolute Auto 300 /uL (0-450); Eosinophils Percent Auto 3.7 % (2-4); Hematocrit 40.3 % (36-46); Hemoglobin 13.8 g/dL (12.0-16.0); Lymphocytes Absolute Auto 2600 /uL (1100-4500); Lymphocytes Percent Auto 29.5 % (25-40); Mean Corpuscular HGB Conc 34.3 % (30-36); Mean Corpuscular Hemoglobin 30.4 PG (26-34); Mean Corpuscular Volume 88.4 fL (80-100); Monocytes Absolute Auto 500 /uL (0-900); Monocytes Percent Auto 5.8 % (3-14); Neutrophils Absolute Auto 5300 /uL (1500-7000); Neutrophils Percent Auto 60.4 % (50-75); Platelet Count 206 X10^3/uL (150-400); Red Blood Cell Count 4.56 X10^6/uL (4.0-5.2); Red Cell Distribution Width 13.7 % (11.6-14.8); White Blood Cell Count 8.7 X10^3/uL (4.5-11.0)
[2022-03-29 22:53] LABS: Alanine Aminotransferase 15 IU/L (<35); Albumin 3.7 g/dL (3.5-5.0); Albumin Globulin Ratio 1.2 (1.0-2.8); Alkaline Phosphatase 95 U/L (38-126); Aspartate Aminotransferase 18 IU/L (14-36); Bilirubin Total 0.6 mg/dL (0.2-1.3); Blood Urea Nitrogen 16 mg/dL (7-17); Calcium 8.5 mg/dL (8.4-10.2); Carbon Dioxide 30 mmol/L (22-32); Chloride 101 mmol/L (98-107); Creatine Kinase 52 U/L (30-135); Estimated Glomerular Filt Rate > 60 mL/min (>60); Globulin 3.2 g/dL (1.7-4.1); Glucose 257 mg/dL (80-110); HEMOLYSIS < 15 (0-50); Lipase 40 U/L (23-300); Potassium 3.9 mmol/L (3.4-5.1); Sodium 139 mmol/L (137-145); Total Protein 6.9 g/dL (6.3-8.2)
[2022-03-29 23:02] LABS: NT-proBNP (BNP-Adult 18+) 130 pg/mL (<125)
[2022-03-29 23:05] LABS: Troponin I < 0.012 ng/mL (0.01-0.034)
[2022-03-29] MEDS: ACETAMINOPHEN 325 MG TABLET 975 MG PO (23:52)
[2022-03-30] VITALS: PULSE 67; RESP 24; O2SAT 96
[2022-03-30 00:30] VITALS: PULSE 81; RESP 22; O2SAT 95
[2022-03-30 00:40] VITALS: BP 146/73; PULSE 80; RESP 23; O2SAT 95
== END 2022-03-30 01:07 | disposition home or self-care (01) ==
PROVIDERS: Emergency Medicine; Emergency Provider Emergency Medicine; PCP Physician Assistant
DX: R42 Dizziness and giddiness (principal); R07.9 Chest pain, unspecified
CPT/HCPCS: 36415; 70496; 70498; 71045; 80053; 82550; 83690; 83735; 83880; 84484; 85025; 93005; 96360; 96361; 99284; Q9967

== ENCOUNTER → 2022-04-27 11:28 | Outpatient (CLI) | payer MEDICARE, SELFPAY ==
[2022-04-27 13:14] LABS: Hemoglobin A1C% w Est Avg Glu 8.9 % (4.0-6.0)
[2022-04-27 13:16] LABS: Appearance Urine UA CLEAR; Bilirubin Urine UA NEGATIVE (NEGATIVE); Color Urine UA YELLOW; Glucose Urine UA TRACE g/dL (Negative); Ketones Urine UA NEGATIVE (NEGATIVE); Leukocyte Esterase Urine UA TRACE (NEGATIVE); Nitrite Urine UA NEGATIVE (Negative); Occult Blood Urine UA 1+ (Negative); Protein Urine UA NEGATIVE (Negative); Specific Gravity Urine UA 1.025 (1.000-1.035); Urobilinogen Urine UA 0.2 E.U./dL (0.2)
[2022-04-27 13:25] LABS: Bacteria Urine None Seen; Calcium Oxalate Crystals Urine Moderate; Culture Indicated Urine Cult Not Indicated; RBC Urine 5-10/HPF (0-5/HPF); Squamous Epithelial Cell Urine 5-10 /HPF (0-5/HPF); WBC Urine 1-5/HPF (0-5/HPF)
[2022-04-27 13:29] LABS: Alanine Aminotransferase 15 IU/L (<35); Albumin Globulin Ratio 1.1 (1.0-2.8); Alkaline Phosphatase 108 U/L (38-126); Aspartate Aminotransferase 18 IU/L (14-36); BUN Creatinine Ratio 20.3 (6-22); Bilirubin Total 0.6 mg/dL (0.2-1.3); Blood Urea Nitrogen 15 mg/dL (7-17); Calcium 9.3 mg/dL (8.4-10.2); Carbon Dioxide 27 mmol/L (22-32); Chloride 103 mmol/L (98-107); Cholesterol 204 mg/dL (140-199); Estimated Glomerular Filt Rate > 60 mL/min (>60); Globulin 3.6 g/dL (1.7-4.1); Glucose 165 mg/dL (80-110); HDL Cholesterol 43 mg/dL (40-60); HEMOLYSIS < 15 (0-50); LDL Cholesterol Calculated 128 mg/dL (<100); Sodium 141 mmol/L (137-145); Total Protein 7.6 g/dL (6.3-8.2); Triglycerides 163 mg/dL (35-150)
[2022-04-27 13:56] LABS: Thyroid Stimulating Hormone 1.54 uIU/mL (0.47-4.68)
== END ==
PROVIDERS: PCP Family Medicine; Referring Provider Family Medicine; Visit Provider Family Medicine
DX: E11.40 Type 2 diabetes mellitus with diabetic neuropathy, unspecified (principal); R42 Dizziness and giddiness; N32.81 Overactive bladder; E78.5 Hyperlipidemia, unspecified; I10 Essential (primary) hypertension; E01.0 Iodine-deficiency related diffuse (endemic) goiter; I67.2 Cerebral atherosclerosis
CPT/HCPCS: 36415; 80053; 80061; 81001; 83036; 84443

== ENCOUNTER → 2022-05-11 11:45 | Outpatient (CLI) | payer MEDICARE, SELFPAY ==
--- NOTE | 2022-05-11 11:47 | DI.MRI.S_ITS ---
PROCEDURE: MR HEAD/BRAIN WO/W CON INDICATIONS: Cerebral atherosclerosis; Thyromegoly TECHNIQUE: Noncontrast axial T1 spin echo, axial T2 fast spin echo, sagittal and axial FLAIR, coronal T2 fast spin echo, axial gradient echo, axial diffusion and ADC through the brain. After the administration of contrast, axial and coronal and sagittal 3D VIBE or T1 spin echo with fat saturation through the brain. COMPARISON: [facility], CT, CT ANGIO HEAD AND NECK, 03/29/2022, 23:00. FINDINGS: Image quality: Excellent. CSF Spaces: Basal cisterns are patent. No extra-axial fluid collections. Ventricles are normal in size and shape. Brain: No intracranial masses or hemorrhage. Alejandro/white matter interface is normal. Brainstem appears normal. Diffusion-weighted images demonstrate no acute infarct. Normal intravascular flow voids are present. Moderate atrophy and white matter chronic ischemic change present Skull and face: Calvarial marrow is normal in signal. Orbits appear normal. Bilateral intraocular lens replacements noted. Sinuses: Sinuses and mastoids appear clear. IMPRESSION: Moderate atrophy and white matter chronic ischemic change without intracranial hemorrhage, infarct or mass lesion Approved by: Jarad Chavez M.D. on 05/11/2022 at 17:59
--- NOTE | 2022-05-11 11:49 | DI.US.S_ITS ---
PROCEDURE: US THYROID INDICATIONS: Cerebral atherosclerosis; Thyromegoly TECHNIQUE: Real-time scanning was performed of the thyroid gland, with image documentation. COMPARISON: [facility], CT, CT ANGIO HEAD AND NECK, 03/29/2022, 23:00. FINDINGS: Right: Thyroid lobe measures 6.2 x 2.9 x 4.0 cm, and is heterogeneous in echotexture. Left: Thyroid lobe measures 6.6 x 2.5 x 2 6 cm, and is heterogeneous in echotexture. Isthmus: 8.6 mm thick. Nodule number: 1 Location: Right superior Size: 1.1 x 1.2 x 1.0 cm. Composition: Solid Echogenicity: Hypoechoic Shape: wider than tall. Margins: Smooth Echogenic foci: None Total points: 4 ACR TI-RADS category: 4 Nodule number: 2 Location: Right mid lateral Size: 0.7 x 0.6 x 0.9 cm. Composition: Predominantly solid Echogenicity: Hypoechoic Shape: wider than tall. Margins: Smooth Echogenic foci: Punctate Total points: 7 ACR TI-RADS category: 5 Nodule number: 3 Location: Left inferior anterior Size: 0.9 x 0.9 x 0.6 cm. Composition: Solid Echogenicity: Hypoechoic Shape: wider than tall. Margins: Hypoechoic Echogenic foci: None Total points: 4 ACR TI-RADS category: 4 Nodule number: 4 Location: Left inferior posterior Size: 0.9 x 0.8 x 0.7 cm. Composition: Solid Echogenicity: Hypoechoic Shape: wider than tall. Margins: Smooth Echogenic foci: None Total points: 4 ACR TI-RADS category: 4 IMPRESSION: Lesions 1, 3 and 4 are considered category 4. Secondary to size, interval follow-up at 1, 2, 3 and 5 years from initial visualization is recommended. Lesion 2 is considered category 7 in secondary to size, annual follow-up is recommended. ACR TI-RADS definitions and recommendations: TI-RADS 1 (benign): 0 points. FNA not needed. TI-RADS 2 (not suspicious): 2 points. FNA not needed. TI-RADS 3 (mildly suspicious): 3 points. * FNA if 2.5 cm or larger, follow up if 1.5 cm or larger (at 1, 3, and 5 years). TI-RADS 4 (moderately suspicious): 4-6 points. * FNA if 1.5 cm or larger, follow up if 1 cm or larger (at 1, 2, 3, and 5 years). TI-RADS 5 (highly suspicious): 7 points or more. * FNA if 1 cm or larger, follow up if 0.5 cm or larger (every year for 5 years). Dictated by: Carmina Solis M.D. on 05/12/2022 at 10:33 Approved by: Carmina Solis M.D. on 05/12/2022 at 10:39
== END ==
PROVIDERS: PCP Family Medicine; Referring Provider Family Medicine; Visit Provider Family Medicine
DX: I67.2 Cerebral atherosclerosis (principal); E01.0 Iodine-deficiency related diffuse (endemic) goiter
CPT/HCPCS: 70553; 76536; A9579

== ENCOUNTER → 2022-12-21 11:28 | Outpatient (CLI) | payer OTHER, SELFPAY ==
--- NOTE | 2022-12-21 11:31 | DI.RAD.S_ITS ---
PROCEDURE: XR KNEE LT 3V INDICATIONS: bilateral knee pain TECHNIQUE: 3 views of the knee were acquired. COMPARISON: None. FINDINGS: Bones: No fractures or dislocations. 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 No suspicious bony lesions. Soft tissues: Moderate suprapatellar joint effusion is seen.. No suspicious soft tissue calcifications. IMPRESSION: Iqqk-th-zivocque tricompartmental osteoarthritis as above. No fracture or dislocation. Moderate joint effusion. Dictated by: Nicola Benitez M.D. on 12/21/2022 at 13:52 Approved by: Nicola Benitez M.D. on 12/21/2022 at 13:57
--- NOTE | 2022-12-21 11:31 | DI.RAD.S_ITS ---
PROCEDURE: XR KNEE RT 3V INDICATIONS: bilateral knee pain TECHNIQUE: 3 views of the knee were acquired. COMPARISON: None. FINDINGS: Bones: Patient is status post prior right total knee arthroplasty with anatomic right knee alignment. No evidence of hardware loosening or failure. No fractures or dislocations. No suspicious bony lesions. Soft tissues: No joint effusion. No suspicious soft tissue calcifications. IMPRESSION: Prior right total knee arthroplasty with anatomic right knee alignment. No evidence of hardware complication. No fracture or dislocation. Dictated by: Nicola Benitez M.D. on 12/21/2022 at 13:57 Approved by: Nicola Benitez M.D. on 12/21/2022 at 14:00
== END ==
PROVIDERS: PCP Nurse Practitioner Family; Referring Provider Nurse Practitioner Family; Visit Provider Nurse Practitioner Family
DX: M17.0 Bilateral primary osteoarthritis of knee (principal)
CPT/HCPCS: 73562

== ENCOUNTER 2023-06-14 14:16 | Inpatient (IN) | payer OTHER, MEDICAID, SELFPAY ==
[2023-06-14] VITALS (21 sets, daily range): BP systolic 118–142; BP diastolic 63–102; PULSE 77–89; RESP 13–30; TEMP 36.7; O2SAT 92–99; BMI 42.9
--- NOTE | 2023-06-14 14:58 | DI.RAD.S_ITS ---
PROCEDURE: XR CHEST 1V INDICATIONS: Shortness of breath TECHNIQUE: One view of the chest was acquired. COMPARISON: [facility], CR, XR CHEST 1V, 03/29/2022, 17:10. FINDINGS: Surgical changes and devices: None. Lungs and pleura: Lungs are clear. No pleural effusions or pneumothorax. Mediastinum: Mediastinal contours appear normal. Heart size is normal. Bones and chest wall: No suspicious bony lesions. Overlying soft tissues appear unremarkable. IMPRESSION: No evidence acute pulmonary process. Dictated by: Oz Goldsmith M.D. on 06/14/2023 at 16:10 Approved by: Oz Goldsmith M.D. on 06/14/2023 at 16:10
--- NOTE | 2023-06-14 15:33 | ED_ITS ---
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 Complains of nausea vomiting general malaise fever body aches sore throat shortness of breath for the past 3 weeks. Had a tele video conference with primary care. Has not had any blood work or imaging or laboratory studies done. Patient in no distress at this time. Denies any chest pain. Denies any urinary complaints. Has been able to urinate normally. No chest pain no abdominal pain. Related Data Home Medications Medication Instructions Recorded Confirmed amlodipine PO 11/22/21 11/22/21 duloxetine 20 mg capsule,delayed 20 mg PO DAILY 06/15/23 06/15/23 release lisinopril 40 mg tablet 40 mg PO DAILY 06/15/23 06/15/23 propranolol 20 mg tablet 20 mg PO DAILY 06/15/23 06/15/23 quetiapine 25 mg tablet 25 mg PO ONCE PM 06/15/23 06/15/23 rosuvastatin 40 mg tablet 40 mg PO DAILY 06/15/23 06/15/23 Previous Rx's Medication Instructions Recorded cefdinir 300 mg capsule 300 mg PO BID #8 caps 06/16/23 insulin glargine 100 unit/mL (3 20 unit (0.2 mL) SUBCUT 2100 #15 mL 06/16/23 mL) subcutaneous pen (Lantus Solostar U-100 Insulin) metoclopramide HCl 5 mg tablet 10 mg (2 x 5 mg) PO ACHS PRN 06/16/23 nausea and vomiting #20 tabs ondansetron 4 mg disintegrating 4 mg PO Q6H PRN nausea and 06/16/23 tablet vomiting #30 tabs pantoprazole 20 mg tablet,delayed 40 mg (2 x 20 mg) PO 0600 #30 tabs 06/16/23 release Allergies Allergy/AdvReac Type Severity Reaction Status Date / Time Penicillins Allergy Severe Anaphylaxis Verified 06/15/23 15:34 morphine AdvReac Nightmare Verified 06/14/23 14:48 Review of Systems <Wilmer Javed MD - Last Filed: 06/25/23 07:45> Review of Systems Narrative: GENERAL: Positive chills, fatigue, malaise, negative fever, sweats. HEENT: negative sinus pain, ear pain, sore throat RESPIRATORY: Positive dyspnea, negative cough CARDIOVASCULAR: negative chest pain, palpitations GASTROINTESTINAL: Positive nausea, vomiting, negative abdominal pain : negative dysuria, frequency, hematuria MUSCULOSKELETAL: Positive muscle or bony pain SKIN: negative rash, skin lesions NEUROLOGIC: negative weakness, numbness ROS Unobtainable: All systems reviewed & are unremarkable except as noted in HPI and below Patient History <Wilmer Javed MD - Last Filed: 06/25/23 07:45> Medical History Secondhand smoke exposure Lichen sclerosus et atrophicus Microscopic hematuria Urge incontinence Hx of migraine headaches History of depression History of chronic urinary tract infection History of arthritis Peripheral neuropathy Depression Hyperlipidemia Fibromyalgia Hypertension Lower leg edema Diabetes Surgical History Hx of abdominal hysterectomy Hx of breast biopsy Hx of total knee replacement Hx of cholecystectomy Hx of appendectomy Family History Mother Cancer CVA (cerebral vascular accident) Hyperlipidemia Hypertension Father Hypertension Hyperlipidemia CAD (coronary artery disease) Sister Hyperlipidemia Hypertension Diabetes mellitus Multiple kidney stones Migraines Brother Hyperlipidemia Hypertension Migraines Eczema Social History marital status: number of children: 4 household members: none lives independently: Yes Smoking Status: Never smoker alcohol intake: current caffeine: Yes Type(s) of exercise: walking frequency: 3-4 times per week duration: 15-30 minutes/day Smoking Status: Never smoker alcohol intake frequency: 0-2 drinks per day Substance Use Type: does not use Exam <Wilmer Javed MD - Last Filed: 06/25/23 07:45> Narrative Exam Narrative: GENERAL: in no distress, not toxic not dyspneic HEAD: Normocephalic. EYES: Pupils equal round ENT: Mucous membranes moist. No pharyngeal erythema edema uvula shift edema or exudates NECK: Trachea midline. CARDIOVASCULAR: Regular rate and rhythm RESPIRATORY: Clear to auscultation. Breath sounds equal bilaterally. No wheezes, rales, or rhonchi. Speaking full sentences. No respiratory distress GASTROINTESTINAL: Abdomen soft, non-tender abdomen is soft flat nontender no peritoneal signs bowel sounds are present. No CVA tenderness EXTREMITIES: No gross deformities. BACK: No flank tenderness. NEURO: AOx4. Clear speech SKIN: Warm and dry PSYCH: Not anxious, is cooperative Initial Vital Signs Initial Vital Signs: Vital Signs Temperature 98.1 F 06/14/23 14:40 Pulse Rate 82 06/14/23 14:40 Respiratory Rate 24 06/14/23 14:40 Blood Pressure 142/102 H 06/14/23 14:40 Pulse Oximetry 98 06/14/23 14:40 Oxygen Delivery Method Room Air 06/14/23 14:40 <Gladys Crow MD - Last Filed: 06/14/23 22:48> Initial Vital Signs Initial Vital Signs: Vital Signs Temperature 98.1 F 06/14/23 14:40 Pulse Rate 82 06/14/23 14:40 Respiratory Rate 24 06/14/23 14:40 Blood Pressure 142/102 H 06/14/23 14:40 Pulse Oximetry 98 06/14/23 14:40 Oxygen Delivery Method Room Air 06/14/23 14:40 Course <Wilmer Javed MD - Last Filed: 06/25/23 07:45> Orders Ordered: Discontinued Medications Acetaminophen (Acetaminophen 325 Mg Tablet) 650 mg PO Q6H [facility] Last Admin: 06/17/23 12:50 Dose: Not Given Documented By: Admin: 06/17/23 05:26 Dose: 650 mg Documented By: Admin: 06/16/23 23:29 Dose: Not Given Documented By: Admin: 06/16/23 17:24 Dose: 650 mg Documented By: Admin: 06/16/23 10:55 Dose: 650 mg Documented By: Admin: 06/16/23 06:10 Dose: Not Given Documented By: Admin: 06/15/23 23:47 Dose: Not Given Documented By: Admin: 06/15/23 18:09 Dose: Not Given Documented By: Admin: 06/15/23 15:02 Dose: 650 mg Documented By: Admin: 06/15/23 05:35 Dose: Not Given Documented By: Admin: 06/15/23 00:19 Dose: Not Given Documented By: LUBNA Hydrocodone Bitart/Acetaminophen (Hydrocodone/Acet 5/325 Tablet) 1 tab PO Q4H PRN PRN Reason: Pain, Moderate (4-6) Atorvastatin Calcium (Atorvastatin 20 Mg Tablet) 80 mg PO BEDTIME [facility] Last Admin: 06/16/23 20:58 Dose: 80 mg Documented By: Admin: 06/15/23 20:25 Dose: 80 mg Documented By: LUBNA Bisacodyl (Bisacodyl 10 Mg Supp) 10 mg DE NOW ONE Stop: 06/16/23 09:18 Last Admin: 06/16/23 10:56 Dose: 10 mg Documented By: ISAIAH Calcium Carbonate (Calcium Carbonate 500 Mg Tab) 1,000 mg PO Q4HR PRN PRN Reason: Dyspepsia Duloxetine HCl (Duloxetine 20 Mg Capsule) 20 mg PO DAILY [facility] Last Admin: 06/17/23 08:38 Dose: 20 mg Documented By: Admin: 06/16/23 09:14 Dose: 20 mg Documented By: ISAIAH Enoxaparin Sodium (Enoxaparin 40 Mg/0.4 Ml Syringe) 40 mg SUBCUT BID [facility] Last Admin: 06/17/23 08:39 Dose: 40 mg Documented By: Admin: 06/16/23 20:59 Dose: 40 mg Documented By: Admin: 06/16/23 09:14 Dose: 40 mg Documented By: Admin: 06/15/23 20:26 Dose: 40 mg Documented By: LUBNA Sodium Chloride (Normal Saline 0.9%) 1,000 mls @ 1,000 mls/hr IV BOLUS ONE Stop: 06/14/23 16:31 Last Infusion: 06/14/23 18:00 Dose: Infused Documented By: Admin: 06/14/23 16:24 Dose: 1,000 mls/hr Documented By: LUCILLE Sodium Chloride (Normal Saline 0.9%) 1,000 mls @ 200 mls/hr IV CONT [facility] Last Admin: 06/14/23 21:57 Dose: 200 mls/hr Documented By: MADDIE Ceftriaxone Sodium 2,000 mg/ (Sodium Chloride) 100 mls @ 200 mls/hr IV NOW ONE Stop: 06/14/23 21:15 Last Infusion: 06/14/23 22:27 Dose: Infused Documented By: Admin: 06/14/23 21:57 Dose: 200 mls/hr Documented By: MADDIE Sodium Chloride (Normal Saline 0.9%) 1,000 mls @ 130 mls/hr IV CONT YVONNE Last Infusion: 06/16/23 00:50 Dose: Infused Documented By: Admin: 06/15/23 16:37 Dose: 130 mls/hr Documented By: Infusion: 06/15/23 16:02 Dose: Infused Documented By: Admin: 06/15/23 08:20 Dose: 130 mls/hr Documented By: Infusion: 06/15/23 07:57 Dose: Infused Documented By: Admin: 06/15/23 00:15 Dose: 130 mls/hr Documented By: LUBNA Ceftriaxone Sodium 1,000 mg/ (Sodium Chloride) 100 mls @ 200 mls/hr IV Q24H [facility] Last Infusion: 06/16/23 21:59 Dose: Infused Documented By: Admin: 06/16/23 20:57 Dose: 200 mls/hr Documented By: Infusion: 06/16/23 00:49 Dose: Infused Documented By: Admin: 06/15/23 20:25 Dose: 200 mls/hr Documented By: LUBNA Dextrose (D10w) 100 mls @ 1,200 mls/hr IV PRN PRN PRN Reason: Hypoglycemia Insulin Glargine (Insulin Glargine 100 Unit/Ml 3ml Pen) 20 unit SUBCUT 2100 [facility]ONNE Last Admin: 06/16/23 20:57 Dose: 20 unit Documented By: PABLO Co-signed By: JENA Admin: 06/15/23 20:35 Dose: 20 unit Documented By: LUBNA Co-signed By: JENA Insulin Human Lispro (Insulin Lispro 100 Unit/Ml 3ml Vial) 0 unit SUBCUT ACHS [facility]; Protocol Last Admin: 06/17/23 12:50 Dose: Not Given Documented By: Admin: 06/17/23 08:36 Dose: Not Given Documented By: Admin: 06/16/23 20:55 Dose: Not Given Documented By: Admin: 06/16/23 17:23 Dose: Not Given Documented By: Admin: 06/16/23 12:14 Dose: 1 unit Documented By: ISAIAH Co-signed By: Admin: 06/16/23 08:06 Dose: Not Given Documented By: Admin: 06/15/23 20:36 Dose: 2 unit Documented By: LUBNA Co-signed By: JENA Admin: 06/15/23 16:39 Dose: Not Given Documented By: ROBERT Ketorolac Tromethamine (Ketorolac 30 Mg/Ml Vial) 15 mg IV NOW ONE Stop: 06/14/23 22:50 Last Admin: 06/14/23 22:59 Dose: 15 mg Documented By: BARRINGTON Lisinopril (Lisinopril 20 Mg Tablet) 40 mg PO DAILY [facility] Last Admin: 06/17/23 08:39 Dose: Not Given Documented By: Admin: 06/16/23 09:12 Dose: 40 mg Documented By: ISAIAH Lorazepam (Lorazepam 2 Mg/Ml Inj) 0.5 mg IV Q4HR PRN PRN Reason: Anxiety Lorazepam (Lorazepam 0.5 Mg Tablet) 0.5 mg PO Q4HR PRN PRN Reason: Nausea And Vomiting Last Admin: 06/15/23 09:44 Dose: 0.5 mg Documented By: ROBERT Metoclopramide HCl (Metoclopramide Hcl 5 Mg Tablet) 10 mg PO ACHS [facility] Last Admin: 06/17/23 12:50 Dose: Not Given Documented By: Admin: 06/17/23 08:38 Dose: 10 mg Documented By: Admin: 06/16/23 20:58 Dose: 10 mg Documented By: Admin: 06/16/23 17:24 Dose: 10 mg Documented By: Admin: 06/16/23 12:15 Dose: 10 mg Documented By: Admin: 06/16/23 09:14 Dose: 10 mg Documented By: Admin: 06/15/23 20:25 Dose: 10 mg Documented By: Admin: 06/15/23 16:40 Dose: 10 mg Documented By: Admin: 06/15/23 13:17 Dose: 10 mg Documented By: Admin: 06/15/23 08:18 Dose: 10 mg Documented By: ROBERT Mineral Oil (Mineral Oil 1 Each Enema) 1 each DE PRN PRN PRN Reason: Constipation Last Admin: 06/16/23 14:34 Dose: 1 each Documented By: ISAIAH Naloxone HCl (Naloxone 0.4 Mg/Ml Vial) 0.2 mg IV Q2MIN PRN PRN Reason: Opiate Reversal Ondansetron HCl (Ondansetron 4 Mg/2 Ml Inj) 4 mg IV NOW ONE Stop: 06/14/23 15:33 Last Admin: 06/14/23 16:24 Dose: 4 mg Documented By: LUCILLE Ondansetron HCl (Ondansetron 4 Mg/2 Ml Inj) 4 mg IV NOW ONE Stop: 06/14/23 20:15 Last Admin: 06/14/23 20:20 Dose: 4 mg Documented By: MADDIE Ondansetron HCl (Ondansetron 4 Mg/2 Ml Inj) 4 mg IV Q6HR [facility] Last Admin: 06/15/23 00:07 Dose: Not Given Documented By: LUBNA Ondansetron HCl (Ondansetron 4 Mg/2 Ml Inj) 4 mg IV Q6H [facility] Last Admin: 06/17/23 08:39 Dose: Not Given Documented By: Admin: 06/17/23 02:43 Dose: Not Given Documented By: Admin: 06/16/23 20:11 Dose: Not Given Documented By: Admin: 06/16/23 14:49 Dose: Not Given Documented By: Admin: 06/16/23 08:08 Dose: Not Given Documented By: Admin: 06/16/23 02:57 Dose: Not Given Documented By: Admin: 06/15/23 19:49 Dose: Not Given Documented By: Admin: 06/15/23 13:58 Dose: 4 mg Documented By: Admin: 06/15/23 08:18 Dose: 4 mg Documented By: Admin: 06/15/23 01:52 Dose: 4 mg Documented By: LUBNA Pantoprazole Sodium (Pantoprazole Dr 20 Mg Tablet) 40 mg PO 0600 [facility] Last Admin: 06/17/23 05:26 Dose: 40 mg Documented By: Admin: 06/16/23 06:51 Dose: 40 mg Documented By: Admin: 06/15/23 06:12 Dose: 40 mg Documented By: LUBNA Propranolol HCl (Propranolol 10 Mg Tablet) 20 mg PO DAILY [facility] Last Admin: 06/17/23 08:39 Dose: 20 mg Documented By: Admin: 06/16/23 09:15 Dose: 20 mg Documented By: ISAIAH Quetiapine Fumarate (Quetiapine 25 Mg Tablet) 25 mg PO BEDTIME [facility] Last Admin: 06/16/23 20:58 Dose: 25 mg Documented By: Admin: 06/15/23 20:24 Dose: 25 mg Documented By: LN Vital Signs Vital signs: Vital Signs - 8 hr 06/14/23 14:40 06/14/23 14:55 06/14/23 14:55 Temperature 98.1 F 98.1 F Pulse Rate 82 81 80 Respiratory Rate 24 24 19 Blood Pressure 142/102 H 140/102 H Pulse Oximetry 98 98 96 Oxygen Delivery Method Room Air Room Air 06/14/23 14:56 06/14/23 14:56 06/14/23 15:00 Temperature Pulse Rate 78 82 Respiratory Rate 21 25 H Blood Pressure 140/76 Pulse Oximetry 98 97 Oxygen Delivery Method 06/14/23 15:01 06/14/23 15:01 06/14/23 15:30 Temperature Pulse Rate 82 80 Respiratory Rate 19 16 Blood Pressure 132/79 Pulse Oximetry 96 98 Oxygen Delivery Method 06/14/23 16:00 06/14/23 16:21 06/14/23 16:21 Temperature Pulse Rate 80 77 Respiratory Rate 22 24 Blood Pressure 118/81 Pulse Oximetry 97 97 Oxygen Delivery Method Room Air 06/14/23 16:30 06/14/23 16:31 06/14/23 16:31 Temperature Pulse Rate 80 82 Respiratory Rate 19 19 Blood Pressure 135/82 Pulse Oximetry 98 97 Oxygen Delivery Method 06/14/23 17:00 06/14/23 17:00 06/14/23 17:30 Temperature Pulse Rate 82 Respiratory Rate 25 H Blood Pressure 127/66 137/63 Pulse Oximetry 94 Oxygen Delivery Method Room Air 06/14/23 17:30 06/14/23 18:00 06/14/23 18:30 Temperature Pulse Rate 83 86 82 Respiratory Rate 19 15 16 Blood Pressure Pulse Oximetry 97 99 Oxygen Delivery Method 06/14/23 19:00 06/14/23 19:30 06/14/23 20:00 Temperature Pulse Rate 84 89 86 Respiratory Rate 24 16 13 Blood Pressure Pulse Oximetry 97 93 94 Oxygen Delivery Method Room Air 06/14/23 20:30 06/14/23 21:00 06/14/23 21:30 Temperature Pulse Rate 86 86 85 Respiratory Rate 25 H 30 H 14 Blood Pressure Pulse Oximetry 95 97 92 Oxygen Delivery Method <Gladys Crow MD - Last Filed: 06/14/23 22:48> Orders Ordered: Discontinued Medications Acetaminophen (Acetaminophen 325 Mg Tablet) 650 mg PO Q6H [facility] Last Admin: 06/17/23 12:50 Dose: Not Given Documented By: Admin: 06/17/23 05:26 Dose: 650 mg Documented By: Admin: 06/16/23 23:29 Dose: Not Given Documented By: Admin: 06/16/23 17:24 Dose: 650 mg Documented By: Admin: 06/16/23 10:55 Dose: 650 mg Documented By: Admin: 06/16/23 06:10 Dose: Not Given Documented By: Admin: 06/15/23 23:47 Dose: Not Given Documented By: Admin: 06/15/23 18:09 Dose: Not Given Documented By: Admin: 06/15/23 15:02 Dose: 650 mg Documented By: Admin: 06/15/23 05:35 Dose: Not Given Documented By: Admin: 06/15/23 00:19 Dose: Not Given Documented By: LUBNA Hydrocodone Bitart/Acetaminophen (Hydrocodone/Acet 5/325 Tablet) 1 tab PO Q4H PRN PRN Reason: Pain, Moderate (4-6) Atorvastatin Calcium (Atorvastatin 20 Mg Tablet) 80 mg PO BEDTIME [facility] Last Admin: 06/16/23 20:58 Dose: 80 mg Documented By: Admin: 06/15/23 20:25 Dose: 80 mg Documented By: LUBNA Bisacodyl (Bisacodyl 10 Mg Supp) 10 mg DE NOW ONE Stop: 06/16/23 09:18 Last Admin: 06/16/23 10:56 Dose: 10 mg Documented By: ISAIAH Calcium Carbonate (Calcium Carbonate 500 Mg Tab) 1,000 mg PO Q4HR PRN PRN Reason: Dyspepsia Duloxetine HCl (Duloxetine 20 Mg Capsule) 20 mg PO DAILY [facility] Last Admin: 06/17/23 08:38 Dose: 20 mg Documented By: Admin: 06/16/23 09:14 Dose: 20 mg Documented By: ISAIAH Enoxaparin Sodium (Enoxaparin 40 Mg/0.4 Ml Syringe) 40 mg SUBCUT BID [facility] Last Admin: 06/17/23 08:39 Dose: 40 mg Documented By: Admin: 06/16/23 20:59 Dose: 40 mg Documented By: Admin: 06/16/23 09:14 Dose: 40 mg Documented By: Admin: 06/15/23 20:26 Dose: 40 mg Documented By: LUBNA Sodium Chloride (Normal Saline 0.9%) 1,000 mls @ 1,000 mls/hr IV BOLUS ONE Stop: 06/14/23 16:31 Last Infusion: 06/14/23 18:00 Dose: Infused Documented By: Admin: 06/14/23 16:24 Dose: 1,000 mls/hr Documented By: LUCILLE Sodium Chloride (Normal Saline 0.9%) 1,000 mls @ 200 mls/hr IV CONT YVONNE Last Admin: 06/14/23 21:57 Dose: 200 mls/hr Documented By: MADDIE Ceftriaxone Sodium 2,000 mg/ (Sodium Chloride) 100 mls @ 200 mls/hr IV NOW ONE Stop: 06/14/23 21:15 Last Infusion: 06/14/23 22:27 Dose: Infused Documented By: Admin: 06/14/23 21:57 Dose: 200 mls/hr Documented By: MADDIE Sodium Chloride (Normal Saline 0.9%) 1,000 mls @ 130 mls/hr IV CONT YVONNE Last Infusion: 06/16/23 00:50 Dose: Infused Documented By: Admin: 06/15/23 16:37 Dose: 130 mls/hr Documented By: Infusion: 06/15/23 16:02 Dose: Infused Documented By: Admin: 06/15/23 08:20 Dose: 130 mls/hr Documented By: Infusion: 06/15/23 07:57 Dose: Infused Documented By: Admin: 06/15/23 00:15 Dose: 130 mls/hr Documented By: LUBNA Ceftriaxone Sodium 1,000 mg/ (Sodium Chloride) 100 mls @ 200 mls/hr IV Q24H [facility] Last Infusion: 06/16/23 21:59 Dose: Infused Documented By: Admin: 06/16/23 20:57 Dose: 200 mls/hr Documented By: Infusion: 06/16/23 00:49 Dose: Infused Documented By: Admin: 06/15/23 20:25 Dose: 200 mls/hr Documented By: LUBNA Dextrose (D10w) 100 mls @ 1,200 mls/hr IV PRN PRN PRN Reason: Hypoglycemia Insulin Glargine (Insulin Glargine 100 Unit/Ml 3ml Pen) 20 unit SUBCUT 2100 [facility] Last Admin: 06/16/23 20:57 Dose: 20 unit Documented By: PABLO Co-signed By: JENA Admin: 06/15/23 20:35 Dose: 20 unit Documented By: LUBNA Co-signed By: JENA Insulin Human Lispro (Insulin Lispro 100 Unit/Ml 3ml Vial) 0 unit SUBCUT [facility]; Protocol Last Admin: 06/17/23 12:50 Dose: Not Given Documented By: Admin: 06/17/23 08:36 Dose: Not Given Documented By: Admin: 06/16/23 20:55 Dose: Not Given Documented By: Admin: 06/16/23 17:23 Dose: Not Given Documented By: Admin: 06/16/23 12:14 Dose: 1 unit Documented By: ISAIAH Co-signed By: Admin: 06/16/23 08:06 Dose: Not Given Documented By: Admin: 06/15/23 20:36 Dose: 2 unit Documented By: LUBNA Co-signed By: Admin: 06/15/23 16:39 Dose: Not Given Documented By: ROBERT Ketorolac Tromethamine (Ketorolac 30 Mg/Ml Vial) 15 mg IV NOW ONE Stop: 06/14/23 22:50 Last Admin: 06/14/23 22:59 Dose: 15 mg Documented By: BARRINGTON Lisinopril (Lisinopril 20 Mg Tablet) 40 mg PO DAILY [facility] Last Admin: 06/17/23 08:39 Dose: Not Given Documented By: Admin: 06/16/23 09:12 Dose: 40 mg Documented By: ISAIAH Lorazepam (Lorazepam 2 Mg/Ml Inj) 0.5 mg IV Q4HR PRN PRN Reason: Anxiety Lorazepam (Lorazepam 0.5 Mg Tablet) 0.5 mg PO Q4HR PRN PRN Reason: Nausea And Vomiting Last Admin: 06/15/23 09:44 Dose: 0.5 mg Documented By: ROBERT Metoclopramide HCl (Metoclopramide Hcl 5 Mg Tablet) 10 mg PO [facility] Last Admin: 06/17/23 12:50 Dose: Not Given Documented By: Admin: 06/17/23 08:38 Dose: 10 mg Documented By: Admin: 06/16/23 20:58 Dose: 10 mg Documented By: Admin: 06/16/23 17:24 Dose: 10 mg Documented By: Admin: 06/16/23 12:15 Dose: 10 mg Documented By: Admin: 06/16/23 09:14 Dose: 10 mg Documented By: Admin: 06/15/23 20:25 Dose: 10 mg Documented By: Admin: 06/15/23 16:40 Dose: 10 mg Documented By: Admin: 06/15/23 13:17 Dose: 10 mg Documented By: Admin: 06/15/23 08:18 Dose: 10 mg Documented By: ROBERT Mineral Oil (Mineral Oil 1 Each Enema) 1 each DE PRN PRN PRN Reason: Constipation Last Admin: 06/16/23 14:34 Dose: 1 each Documented By: ISAIAH Naloxone HCl (Naloxone 0.4 Mg/Ml Vial) 0.2 mg IV Q2MIN PRN PRN Reason: Opiate Reversal Ondansetron HCl (Ondansetron 4 Mg/2 Ml Inj) 4 mg IV NOW ONE Stop: 06/14/23 15:33 Last Admin: 06/14/23 16:24 Dose: 4 mg Documented By: LUCILLE Ondansetron HCl (Ondansetron 4 Mg/2 Ml Inj) 4 mg IV NOW ONE Stop: 06/14/23 20:15 Last Admin: 06/14/23 20:20 Dose: 4 mg Documented By: MADDIE Ondansetron HCl (Ondansetron 4 Mg/2 Ml Inj) 4 mg IV Q6HR [facility] Last Admin: 06/15/23 00:07 Dose: Not Given Documented By: LUBNA Ondansetron HCl (Ondansetron 4 Mg/2 Ml Inj) 4 mg IV Q6H [facility] Last Admin: 06/17/23 08:39 Dose: Not Given Documented By: Admin: 06/17/23 02:43 Dose: Not Given Documented By: Admin: 06/16/23 20:11 Dose: Not Given Documented By: Admin: 06/16/23 14:49 Dose: Not Given Documented By: Admin: 06/16/23 08:08 Dose: Not Given Documented By: Admin: 06/16/23 02:57 Dose: Not Given Documented By: Admin: 06/15/23 19:49 Dose: Not Given Documented By: Admin: 06/15/23 13:58 Dose: 4 mg Documented By: Admin: 06/15/23 08:18 Dose: 4 mg Documented By: Admin: 06/15/23 01:52 Dose: 4 mg Documented By: LUBNA Pantoprazole Sodium (Pantoprazole Dr 20 Mg Tablet) 40 mg PO 0600 [facility] Last Admin: 06/17/23 05:26 Dose: 40 mg Documented By: Admin: 06/16/23 06:51 Dose: 40 mg Documented By: Admin: 06/15/23 06:12 Dose: 40 mg Documented By: LUBNA Propranolol HCl (Propranolol 10 Mg Tablet) 20 mg PO DAILY [facility] Last Admin: 06/17/23 08:39 Dose: 20 mg Documented By: Admin: 06/16/23 09:15 Dose: 20 mg Documented By: ISAIAH Quetiapine Fumarate (Quetiapine 25 Mg Tablet) 25 mg PO BEDTIME [facility] Last Admin: 06/16/23 20:58 Dose: 25 mg Documented By: Admin: 06/15/23 20:24 Dose: 25 mg Documented By: LUBNA Vital Signs Vital signs: Vital Signs - 8 hr 06/14/23 14:40 06/14/23 14:55 06/14/23 14:55 Temperature 98.1 F 98.1 F Pulse Rate 82 81 80 Respiratory Rate 24 24 19 Blood Pressure 142/102 H 140/102 H Pulse Oximetry 98 98 96 Oxygen Delivery Method Room Air Room Air 06/14/23 14:56 06/14/23 14:56 06/14/23 15:00 Temperature Pulse Rate 78 82 Respiratory Rate 21 25 H Blood Pressure 140/76 Pulse Oximetry 98 97 Oxygen Delivery Method 06/14/23 15:01 06/14/23 15:01 06/14/23 15:30 Temperature Pulse Rate 82 80 Respiratory Rate 19 16 Blood Pressure 132/79 Pulse Oximetry 96 98 Oxygen Delivery Method 06/14/23 16:00 06/14/23 16:21 06/14/23 16:21 Temperature Pulse Rate 80 77 Respiratory Rate 22 24 Blood Pressure 118/81 Pulse Oximetry 97 97 Oxygen Delivery Method Room Air 06/14/23 16:30 06/14/23 16:31 06/14/23 16:31 Temperature Pulse Rate 80 82 Respiratory Rate 19 19 Blood Pressure 135/82 Pulse Oximetry 98 97 Oxygen Delivery Method 06/14/23 17:00 06/14/23 17:00 06/14/23 17:30 Temperature Pulse Rate 82 Respiratory Rate 25 H Blood Pressure 127/66 137/63 Pulse Oximetry 94 Oxygen Delivery Method Room Air 06/14/23 17:30 06/14/23 18:00 06/14/23 18:30 Temperature Pulse Rate 83 86 82 Respiratory Rate 19 15 16 Blood Pressure Pulse Oximetry 97 99 Oxygen Delivery Method 06/14/23 19:00 06/14/23 19:30 06/14/23 20:00 Temperature Pulse Rate 84 89 86 Respiratory Rate 24 16 13 Blood Pressure Pulse Oximetry 97 93 94 Oxygen Delivery Method Room Air 06/14/23 20:30 06/14/23 21:00 06/14/23 21:30 Temperature Pulse Rate 86 86 85 Respiratory Rate 25 H 30 H 14 Blood Pressure Pulse Oximetry 95 97 92 Oxygen Delivery Method Medical Decision Making <Wilmer Javed MD - Last Filed: 06/25/23 07:45> Lab Data 06/15/23 01:20 06/15/23 01:20 Labs: Lab Results 06/14/23 06/14/23 06/14/23 Range/Units 15:35 17:00 20:07 WBC 14.2 H (4.5-11.0) X10^3/uL RBC 4.82 (4.0-5.2) X10^6/uL Hgb 14.5 (12.0-16.0) g/dL Hct 41.6 (36-46) % MCV 86.4 (80-100) fL MCH 30.0 (26-34) PG MCHC 34.7 (30-36) % RDW 14.0 (11.6-14.8) % Plt Count 205 (150-400) X10^3/uL Neut % (Auto) 66.8 (50-75) % Lymph % (Auto) 25.7 (25-40) % Bartholomew % (Auto) 5.9 (3-14) % Eos % (Auto) 0.9 L (2-4) % Baso % (Auto) 0.7 (0-2) % Neut # (Auto) 9500 H (1342-0802) /uL Lymph # (Auto) 3600 (2707-1868) /uL Bartholomew # (Auto) 800 (0-900) /uL Eos # (Auto) 100 (0-450) /uL Baso # (Auto) 100 (0-100) /uL PT 13.1 H (10.1-12.7) SECONDS INR 1.1 (0.9-1.3) Sodium 135 L (137-145) mmol/L Potassium 3.4 (3.4-5.1) mmol/L Chloride 94 L (98-107) mmol/L Carbon Dioxide 32 (22-32) mmol/L BUN 22 H (7-17) mg/dL Creatinine 0.92 (0.52-1.04) mg/dL Estimated GFR > 60 (>60) mL/min BUN/Creatinine Ratio 23.9 H (6-22) Glucose 159 H (80-110) mg/dL Lactate 1.8 (0.7-2.1) mmol/L Calcium 9.9 (8.4-10.2) mg/dL Magnesium (1.6-2.3) mg/dL Total Bilirubin 1.0 (0.2-1.3) mg/dL AST 17 (14-36) IU/L ALT 16 (<35) IU/L Alkaline Phosphatase 112 (38-126) U/L Troponin I < 0.012 (0.01-0.034) ng/mL NT-Pro-B Natriuret Pep 57 (<450) pg/mL Total Protein 7.9 (6.3-8.2) g/dL Albumin 4.3 (3.5-5.0) g/dL Globulin 3.6 (1.7-4.1) g/dL Albumin/Globulin Ratio 1.2 (1.0-2.8) Urine Color Yellow Urine Appearance Cloudy Urine pH 8.0 (4.5-8.0) Ur Specific [place] 1.010 (1.000-1.035) Urine Protein Negative (Negative) Urine Glucose (UA) Negative (Negative) g/dL Urine Ketones Negative (NEGATIVE) Urine Occult Blood Negative (Negative) Urine Nitrate Positive H (Negative) Urine Bilirubin Negative (NEGATIVE) Urine Urobilinogen 2.0 H (0.2) E.U./dL Ur Leukocyte Esterase 1+ H (NEGATIVE) Urine RBC None seen (0-5/HPF) Urine WBC 5-10/hpf H (0-5/HPF) Ur Squamous Epith Cells 1-5 /hpf (0-5/HPF) Urine Bacteria Many (>30) H (None) Ur Culture Indicated? Specimen cultured Chlamy pneumoniae PCR Not detected (Not Detect) Adenovirus (PCR) Not detected (Not Detect) B.parapertussis DNA PCR Not detected (Not Detecte) Coronavirus OC43 (PCR) Not detected (Not Detect) Coronavirus HKU1 (PCR) Not detected (Not Detect) Coronavirus 229E (PCR) Not detected (Not Detect) SARS-CoV-2 (PCR) Not detected (Not Detecte) Coronavirus NL63 (PCR) Not detected (Not Detect) Human Metapneumovir PCR Not detected (Not Detect) Influenza Type A (PCR) Not detected (Not Detect) Influenza Type B (PCR) Not detected (Not Detect) M. pneumoniae (PCR) Not detected (Not Detect) Parainfluenza 1 (PCR) Not detected (Not Detect) Parainfluenza 2 (PCR) Not detected (Not Detect) Parainfluenza 3 (PCR) Not detected (Not Detect) Parainfluenza 4 (PCR) Not detected (Not Detect) RSV (PCR) Not detected (Not Detect) Entero/Rhino (PCR) Not detected (Not Detect) 06/15/23 Range/Units 01:20 WBC 11.1 H (4.5-11.0) X10^3/uL RBC 4.33 (4.0-5.2) X10^6/uL Hgb 13.0 (12.0-16.0) g/dL Hct 37.9 (36-46) % MCV 87.5 (80-100) fL MCH 30.0 (26-34) PG MCHC 34.2 (30-36) % RDW 13.7 (11.6-14.8) % Plt Count 204 (150-400) X10^3/uL Neut % (Auto) 56.3 (50-75) % Lymph % (Auto) 34.2 (25-40) % Bartholomew % (Auto) 7.0 (3-14) % Eos % (Auto) 1.5 L (2-4) % Baso % (Auto) 1.0 (0-2) % Neut # (Auto) 6200 (4799-9215) /uL Lymph # (Auto) 3800 (0962-6732) /uL Bartholomew # (Auto) 800 (0-900) /uL Eos # (Auto) 200 (0-450) /uL Baso # (Auto) 100 (0-100) /uL PT (10.1-12.7) SECONDS INR (0.9-1.3) Sodium 136 L (137-145) mmol/L Potassium 3.6 (3.4-5.1) mmol/L Chloride 98 (98-107) mmol/L Carbon Dioxide 29 (22-32) mmol/L BUN 19 H (7-17) mg/dL Creatinine 1.01 (0.52-1.04) mg/dL Estimated GFR 58 L (>60) mL/min BUN/Creatinine Ratio 18.8 (6-22) Glucose 128 H (80-110) mg/dL Lactate (0.7-2.1) mmol/L Calcium 8.7 (8.4-10.2) mg/dL Magnesium 2.0 (1.6-2.3) mg/dL Total Bilirubin (0.2-1.3) mg/dL AST (14-36) IU/L ALT (<35) IU/L Alkaline Phosphatase (38-126) U/L Troponin I (0.01-0.034) ng/mL NT-Pro-B Natriuret Pep (<450) pg/mL Total Protein (6.3-8.2) g/dL Albumin (3.5-5.0) g/dL Globulin (1.7-4.1) g/dL Albumin/Globulin Ratio (1.0-2.8) Urine Color Urine Appearance Urine pH (4.5-8.0) Ur Specific [place] (1.000-1.035) Urine Protein (Negative) Urine Glucose (UA) (Negative) g/dL Urine Ketones (NEGATIVE) Urine Occult Blood (Negative) Urine Nitrate (Negative) Urine Bilirubin (NEGATIVE) Urine Urobilinogen (0.2) E.U./dL Ur Leukocyte Esterase (NEGATIVE) Urine RBC (0-5/HPF) Urine WBC (0-5/HPF) Ur Squamous Epith Cells (0-5/HPF) Urine Bacteria (None) Ur Culture Indicated? Chlamy pneumoniae PCR (Not Detect) Adenovirus (PCR) (Not Detect) B.parapertussis DNA PCR (Not Detecte) Coronavirus OC43 (PCR) (Not Detect) Coronavirus HKU1 (PCR) (Not Detect) Coronavirus 229E (PCR) (Not Detect) SARS-CoV-2 (PCR) (Not Detecte) Coronavirus NL63 (PCR) (Not Detect) Human Metapneumovir PCR (Not Detect) Influenza Type A (PCR) (Not Detect) Influenza Type B (PCR) (Not Detect) M. pneumoniae (PCR) (Not Detect) Parainfluenza 1 (PCR) (Not Detect) Parainfluenza 2 (PCR) (Not Detect) Parainfluenza 3 (PCR) (Not Detect) Parainfluenza 4 (PCR) (Not Detect) RSV (PCR) (Not Detect) Entero/Rhino (PCR) (Not Detect) Imaging Data Chest x-ray: Radiologist's Impression: [address] [id number] XRay Report Signed Patient: Ninfa Hercules MR#: [id number] : 1945 Acct:[id number] Age/Sex: 77 / F Date of Service: 06/14/23 Loc: ED Accession Number: [id number] Procedure: XR chest 1V Ordering Provider: Wilmer Javed MD PROCEDURE: XR CHEST 1V INDICATIONS: Shortness of breath TECHNIQUE: One view of the chest was acquired. COMPARISON: [facility], , XR CHEST 1V, 03/29/2022, 17:10. FINDINGS: Surgical changes and devices: None. Lungs and pleura: Lungs are clear. No pleural effusions or pneumothorax. Mediastinum: Mediastinal contours appear normal. Heart size is normal. Bones and chest wall: No suspicious bony lesions. Overlying soft tissues appear unremarkable. IMPRESSION: No evidence acute pulmonary process. Dictated by: Oz Goldsmith M.D. on 06/14/2023 at 16:10 Approved by: Oz Goldsmith M.D. on 06/14/2023 at 16:10 [facility] Narrative Medical decision making narrative: Patient here with her social science professor. Complains of nausea vomiting general malaise fever body aches sore throat shortness of breath for the past 3 weeks. Had a tele video conference with primary care. Has not had any blood work or imaging or laboratory studies done. Patient in no distress at this time. Denies any chest pain. Denies any urinary complaints. Has been able to urinate normally. No chest pain no abdominal pain. After history and exam CBC CMP EKG troponin chest x-ray respiratory panel urinalysis Zofran normal saline MDM CC: Nausea vomiting malaise body aches chills Complicating co-morbidities: None Data collected from: Patient Medical records reviewed: No recent visit for this complaint Differential considered: Includes but not limited to viral syndrome UTI pneumonia pharyngitis Exam documented above, pertinent findings include: Clear lung sounds Lab Test results independently reviewed as above. Pertinent findings: WBC 14 INR 1.1 sodium 135 potassium 3.4 GFR greater than 60 troponin less than 0.012 viral swab negative Independently reviewed EKG normal sinus rhythm rate [address] elevation or depression Imaging studies independently reviewed: Chest x-ray no acute finding Consultations: Treatments: Zofran normal saline Re-evaluations: Discussion: Diagnosis: 6:00 p.m.. Brennick: Sign out to Dr Crow reassess patient. Urinalysis pending. WBC elevation nonspecific <Gladys Crow MD - Last Filed: 06/14/23 22:48> Lab Data Labs: Lab Results 06/14/23 06/14/23 06/14/23 Range/Units 15:35 17:00 20:07 WBC 14.2 H (4.5-11.0) X10^3/uL RBC 4.82 (4.0-5.2) X10^6/uL Hgb 14.5 (12.0-16.0) g/dL Hct 41.6 (36-46) % MCV 86.4 (80-100) fL MCH 30.0 (26-34) PG MCHC 34.7 (30-36) % RDW 14.0 (11.6-14.8) % Plt Count 205 (150-400) X10^3/uL Neut % (Auto) 66.8 (50-75) % Lymph % (Auto) 25.7 (25-40) % Bartholomew % (Auto) 5.9 (3-14) % Eos % (Auto) 0.9 L (2-4) % Baso % (Auto) 0.7 (0-2) % Neut # (Auto) 9500 H (4563-4764) /uL Lymph # (Auto) 3600 (5597-2455) /uL Bartholomew # (Auto) 800 (0-900) /uL Eos # (Auto) 100 (0-450) /uL Baso # (Auto) 100 (0-100) /uL PT 13.1 H (10.1-12.7) SECONDS INR 1.1 (0.9-1.3) Sodium 135 L (137-145) mmol/L Potassium 3.4 (3.4-5.1) mmol/L Chloride 94 L (98-107) mmol/L Carbon Dioxide 32 (22-32) mmol/L BUN 22 H (7-17) mg/dL Creatinine 0.92 (0.52-1.04) mg/dL Estimated GFR > 60 (>60) mL/min BUN/Creatinine Ratio 23.9 H (6-22) Glucose 159 H (80-110) mg/dL Lactate 1.8 (0.7-2.1) mmol/L Calcium 9.9 (8.4-10.2) mg/dL Magnesium (1.6-2.3) mg/dL Total Bilirubin 1.0 (0.2-1.3) mg/dL AST 17 (14-36) IU/L ALT 16 (<35) IU/L Alkaline Phosphatase 112 (38-126) U/L Troponin I < 0.012 (0.01-0.034) ng/mL NT-Pro-B Natriuret Pep 57 (<450) pg/mL Total Protein 7.9 (6.3-8.2) g/dL Albumin 4.3 (3.5-5.0) g/dL Globulin 3.6 (1.7-4.1) g/dL Albumin/Globulin Ratio 1.2 (1.0-2.8) Urine Color Yellow Urine Appearance Cloudy Urine pH 8.0 (4.5-8.0) Ur Specific [place] 1.010 (1.000-1.035) Urine Protein Negative (Negative) Urine Glucose (UA) Negative (Negative) g/dL Urine Ketones Negative (NEGATIVE) Urine Occult Blood Negative (Negative) Urine Nitrate Positive H (Negative) Urine Bilirubin Negative (NEGATIVE) Urine Urobilinogen 2.0 H (0.2) E.U./dL Ur Leukocyte Esterase 1+ H (NEGATIVE) Urine RBC None seen (0-5/HPF) Urine WBC 5-10/hpf H (0-5/HPF) Ur Squamous Epith Cells 1-5 /hpf (0-5/HPF) Urine Bacteria Many (>30) H (None) Ur Culture Indicated? Specimen cultured Chlamy pneumoniae PCR Not detected (Not Detect) Adenovirus (PCR) Not detected (Not Detect) B.parapertussis DNA PCR Not detected (Not Detecte) Coronavirus OC43 (PCR) Not detected (Not Detect) Coronavirus HKU1 (PCR) Not detected (Not Detect) Coronavirus 229E (PCR) Not detected (Not Detect) SARS-CoV-2 (PCR) Not detected (Not Detecte) Coronavirus NL63 (PCR) Not detected (Not Detect) Human Metapneumovir PCR Not detected (Not Detect) Influenza Type A (PCR) Not detected (Not Detect) Influenza Type B (PCR) Not detected (Not Detect) M. pneumoniae (PCR) Not detected (Not Detect) Parainfluenza 1 (PCR) Not detected (Not Detect) Parainfluenza 2 (PCR) Not detected (Not Detect) Parainfluenza 3 (PCR) Not detected (Not Detect) Parainfluenza 4 (PCR) Not detected (Not Detect) RSV (PCR) Not detected (Not Detect) Entero/Rhino (PCR) Not detected (Not Detect) 06/15/23 Range/Units 01:20 WBC 11.1 H (4.5-11.0) X10^3/uL RBC 4.33 (4.0-5.2) X10^6/uL Hgb 13.0 (12.0-16.0) g/dL Hct 37.9 (36-46) % MCV 87.5 (80-100) fL MCH 30.0 (26-34) PG MCHC 34.2 (30-36) % RDW 13.7 (11.6-14.8) % Plt Count 204 (150-400) X10^3/uL Neut % (Auto) 56.3 (50-75) % Lymph % (Auto) 34.2 (25-40) % Bartholomew % (Auto) 7.0 (3-14) % Eos % (Auto) 1.5 L (2-4) % Baso % (Auto) 1.0 (0-2) % Neut # (Auto) 6200 (5324-6271) /uL Lymph # (Auto) 3800 (9568-8109) /uL Bartholomew # (Auto) 800 (0-900) /uL Eos # (Auto) 200 (0-450) /uL Baso # (Auto) 100 (0-100) /uL PT (10.1-12.7) SECONDS INR (0.9-1.3) Sodium 136 L (137-145) mmol/L Potassium 3.6 (3.4-5.1) mmol/L Chloride 98 (98-107) mmol/L Carbon Dioxide 29 (22-32) mmol/L BUN 19 H (7-17) mg/dL Creatinine 1.01 (0.52-1.04) mg/dL Estimated GFR 58 L (>60) mL/min BUN/Creatinine Ratio 18.8 (6-22) Glucose 128 H (80-110) mg/dL Lactate (0.7-2.1) mmol/L Calcium 8.7 (8.4-10.2) mg/dL Magnesium 2.0 (1.6-2.3) mg/dL Total Bilirubin (0.2-1.3) mg/dL AST (14-36) IU/L ALT (<35) IU/L Alkaline Phosphatase (38-126) U/L Troponin I (0.01-0.034) ng/mL NT-Pro-B Natriuret Pep (<450) pg/mL Total Protein (6.3-8.2) g/dL Albumin (3.5-5.0) g/dL Globulin (1.7-4.1) g/dL Albumin/Globulin Ratio (1.0-2.8) Urine Color Urine Appearance Urine pH (4.5-8.0) Ur Specific [place] (1.000-1.035) Urine Protein (Negative) Urine Glucose (UA) (Negative) g/dL Urine Ketones (NEGATIVE) Urine Occult Blood (Negative) Urine Nitrate (Negative) Urine Bilirubin (NEGATIVE) Urine Urobilinogen (0.2) E.U./dL Ur Leukocyte Esterase (NEGATIVE) Urine RBC (0-5/HPF) Urine WBC (0-5/HPF) Ur Squamous Epith Cells (0-5/HPF) Urine Bacteria (None) Ur Culture Indicated? Chlamy pneumoniae PCR (Not Detect) Adenovirus (PCR) (Not Detect) B.parapertussis DNA PCR (Not Detecte) Coronavirus OC43 (PCR) (Not Detect) Coronavirus HKU1 (PCR) (Not Detect) Coronavirus 229E (PCR) (Not Detect) SARS-CoV-2 (PCR) (Not Detecte) Coronavirus NL63 (PCR) (Not Detect) Human Metapneumovir PCR (Not Detect) Influenza Type A (PCR) (Not Detect) Influenza Type B (PCR) (Not Detect) M. pneumoniae (PCR) (Not Detect) Parainfluenza 1 (PCR) (Not Detect) Parainfluenza 2 (PCR) (Not Detect) Parainfluenza 3 (PCR) (Not Detect) Parainfluenza 4 (PCR) (Not Detect) RSV (PCR) (Not Detect) Entero/Rhino (PCR) (Not Detect) MDM Narrative Medical decision making narrative: Patient here with her social science professor. Complains of nausea vomiting general malaise fever body aches sore throat shortness of breath for the past 3 weeks. Had a tele video conference with primary care. Has not had any blood work or imaging or laboratory studies done. Patient in no distress at this time. Denies any chest pain. Denies any urinary complaints. Has been able to urinate normally. No chest pain no abdominal pain. After history and exam CBC CMP EKG troponin chest x-ray respiratory panel urinalysis Zofran normal saline MDM CC: Nausea vomiting malaise body aches chills Complicating co-morbidities: None Data collected from: Patient Medical records reviewed: No recent visit for this complaint Differential considered: Includes but not limited to viral syndrome UTI pneumonia pharyngitis Exam documented above, pertinent findings include: Clear lung sounds Lab Test results independently reviewed as above. Pertinent findings: WBC 14 INR 1.1 sodium 135 potassium 3.4 GFR greater than 60 troponin less than 0.012 viral swab negative Independently reviewed EKG normal sinus rhythm rate [address] elevation or depression Imaging studies independently reviewed: Chest x-ray no acute finding Head CT shows no acute findings specifically no chronic subdural hematoma CT scan of the abdomen shows questionable colonic wall thickening perhaps due to underdistention but low-grade colitis can not be excluded. No other specific abnormalities that might explain the persistent vomiting and middle abdominal pain are appreciated 6:00 p.m.. Tegan: Sign out to Dr Crow reassess patient. Urinalysis pending. WBC elevation nonspecific Re-evaluations: Care is assumed from Dr. Javed. Patient is independently examined. She is been having what initially started out as vomiting and diarrhea. She has not had any diarrhea for about 3 weeks but the vomiting has continued. She is having abdominal pain with persistent severe nausea. She is generally weak, if she sits for more than a few minutes finds that she feels like she is going to pass out. She describes falling a couple of times but isn't clear that she has a has not hit her head. She states that she is had 2 ?very severe migraines? over this time. And while there is a family history for migraines she herself does not carry that diagnosis. She has significant emotional distress over her current housing instability. She has a social science professor helping her who has arranged for room in hotel. Her was recently hospitalized and is currently in a group family home with increasing dementia. This is adding to her stress. On physical exam she is flushed, emotionally stressed, moderate abdominal pain through the center portion of her abdomen and abdominal palpation recreates her nausea. Workup is reviewed and notable for leukocytosis at 14.2 without significant left shift. Chemistries do not show dramatic dehydration or other significant abnormalities. Urine does look like she has a urinary tract infection. There is no evidence sepsis. Chest x-ray is unremarkable. At this time I am concerned with the reports of 2 migraine headaches without a prior diagnosis of the age of 77 and possible falls. Subdural hematoma could certainly be contributing. I am also concerned about the abdominal pain. Additional imaging in the form of CT scan of the head and the abdomen pelvis will be obtained. At this point she is still not able to eat or drink anything beyond water. She is lost 10 lb in the last 2 weeks. She is weak enough that she is not able to stand for any significant period of time to care for herself. Consultations: Care is reviewed with the admitting hospitalist, Dr. Chavez. He accepts admission. Treatments: Zofran, normal saline Discussion: 77-year-old woman with a month of nausea and vomiting. The 1st week she also had diarrhea but has not been eating enough to actually have much of a bowel movement at all. She is dizzy when she stands up states that she is lost 10 lb in the last [address] scan does not show intracranial abnormalities, CT of the abdomen does not show any significant pathology, lab work is unremarkable. This point she remains significantly nauseated and dizzy and weak when she sits up. I suspect part of this is due to being completely overwhelmed with her social situation and recent hospitalization and then placement into an adult family home for her . Will recommend hospitalization for continued nausea control rehydration and mobilization. Essentially 2 weeks lying in bed has led to significant deconditioning and she may benefit from physical therapy. Also noted is urinary tract infection, she has been given 2 g of IV ceftriaxone in the emergency department. There is no sign of pyelonephritis nor sepsis. Diagnosis: Persistent vomiting, urinary tract infection, unintentional weight loss, persistent nausea, global weakness Discharge Plan Departure Patient Disposition: Admitted as Observation Clinical Impression: Acute UTI, Unintentional weight loss, Acute reaction to situational stress Nausea & vomiting Qualifiers: Vomiting type: unspecified Qualified Code(s): R11.2 - Nausea with vomiting, unspecified Admit Date/Time: 06/16/23 12:20 Admit Provider: Ronnie Denton
[2023-06-14 16:02] LABS: INR 1.1 (0.9-1.3); Prothrombin Time 13.1 SECONDS (10.1-12.7)
[2023-06-14 16:07] LABS: Add Manual Diff / Slide Review NO; Basophils Absolute Auto 100 /uL (0-100); Basophils Percent Auto 0.7 % (0-2); Eosinophils Absolute Auto 100 /uL (0-450); Eosinophils Percent Auto 0.9 % (2-4); Hematocrit 41.6 % (36-46); Hemoglobin 14.5 g/dL (12.0-16.0); Lymphocytes Absolute Auto 3600 /uL (1100-4500); Lymphocytes Percent Auto 25.7 % (25-40); Mean Corpuscular HGB Conc 34.7 % (30-36); Mean Corpuscular Volume 86.4 fL (80-100); Monocytes Absolute Auto 800 /uL (0-900); Monocytes Percent Auto 5.9 % (3-14); Neutrophils Absolute Auto 9500 /uL (1500-7000); Neutrophils Percent Auto 66.8 % (50-75); Platelet Count 205 X10^3/uL (150-400); Red Blood Cell Count 4.82 X10^6/uL (4.0-5.2); White Blood Cell Count 14.2 X10^3/uL (4.5-11.0)
[2023-06-14 16:09] LABS: Lactate (Lactic Acid) 1.8 mmol/L (0.7-2.1)
[2023-06-14 16:10] LABS: Alanine Aminotransferase 16 IU/L (<35); Albumin 4.3 g/dL (3.5-5.0); Albumin Globulin Ratio 1.2 (1.0-2.8); Alkaline Phosphatase 112 U/L (38-126); Aspartate Aminotransferase 17 IU/L (14-36); BUN Creatinine Ratio 23.9 (6-22); Blood Urea Nitrogen 22 mg/dL (7-17); Calcium 9.9 mg/dL (8.4-10.2); Carbon Dioxide 32 mmol/L (22-32); Chloride 94 mmol/L (98-107); Estimated Glomerular Filt Rate > 60 mL/min (>60); Globulin 3.6 g/dL (1.7-4.1); Glucose 159 mg/dL (80-110); HEMOLYSIS < 15 (0-50); Potassium 3.4 mmol/L (3.4-5.1); Sodium 135 mmol/L (137-145); Total Protein 7.9 g/dL (6.3-8.2)
[2023-06-14 16:21] LABS: NT-proBNP (BNP-Adult 18+) 57 pg/mL (<450); Troponin I < 0.012 ng/mL (0.01-0.034)
[2023-06-14] MEDS: ONDANSETRON 4 MG/2 ML INJ IV ×2 (16:24→20:20)
[2023-06-14] MEDS: SODIUM CHLORIDE 0.9% 1,000 ML 1000 ML IV (16:24)
[2023-06-14 17:55] LABS: Adenovirus Not Detected (Not Detect); B. parapertussis Not Detected (Not Detecte); Bordetella pertussis Not Detected (Not Detect); Chlamydophila pneumoniae Not Detected (Not Detect); Coronavirus 229E Not Detected (Not Detect); Coronavirus HKU1 Not Detected (Not Detect); Coronavirus NL 63 Not Detected (Not Detect); Coronavirus OC43 Not Detected (Not Detect); Human Metapneumovirus Not Detected (Not Detect); Human Rhinovirus/Enterovirus Not Detected (Not Detect); Influenza A Not Detected (Not Detect); Influenza B Not Detected (Not Detect); Mycoplasma pneumoniae Not Detected (Not Detect); Parainfluenza Virus 1 Not Detected (Not Detect); Parainfluenza Virus 2 Not Detected (Not Detect); Parainfluenza Virus 3 Not Detected (Not Detect); Parainfluenza Virus 4 Not Detected (Not Detect); Respiratory Syncytial Virus Not Detected (Not Detect); SARS- CoV-2 Not Detected (Not Detecte)
--- NOTE | 2023-06-14 19:13 | PC.NURSE ---
Patient states her has dementia and she could no longer care for him, he was sent to a care facility. Now that she is home alone she is finding it difficult to care for herself, feeling weak and SOB the past 10 days. Patient currently denies nausea but has had dry heaving and some vomiting the past week. She is unable to keep fluids down.
[2023-06-14 20:20] LABS: Bilirubin Urine UA NEGATIVE (NEGATIVE); Color Urine UA YELLOW; Glucose Urine UA NEGATIVE (Negative); Ketones Urine UA NEGATIVE (NEGATIVE); Leukocyte Esterase Urine UA 1+ (NEGATIVE); Nitrite Urine UA POSITIVE (Negative); Occult Blood Urine UA NEGATIVE (Negative); Protein Urine UA NEGATIVE (Negative)
[2023-06-14 20:27] LABS: Appearance Urine UA CLOUDY
[2023-06-14 20:28] LABS: Bacteria Urine Many (>30); Culture Indicated Urine Specimen Cultured; RBC Urine None Seen (0-5/HPF); Squamous Epithelial Cell Urine 1-5 /HPF (0-5/HPF); WBC Urine 5-10/HPF (0-5/HPF)
--- NOTE | 2023-06-14 21:13 | DI.CT.S_ITS ---
PROCEDURE: CT HEAD/BRAIN WO CON INDICATIONS: Intermittent headache with vomiting for a month TECHNIQUE: Noncontrast 4.5 mm thick angled axial sections acquired from the foramen magnum to the vertex, with coronal and sagittal reformats. For radiation dose reduction, the following was used: automated exposure control, adjustment of mA and/or kV according to patient size. COMPARISON: None. FINDINGS: Image quality: Excellent. CSF spaces: Basal cisterns are patent. No extra-axial fluid collections. The ventricles are symmetric in size and shape. Brain: No intracranial bleeds or masses. There is cerebral volume loss for age, with resultant ventricular and sulcal prominence. There are periventricular and deep white matter chronic small vessel ischemic changes. There is intracranial internal carotid artery atherosclerosis. Skull and face: Calvarium and visualized facial bones appear intact, without suspicious lesions. Sinuses: Visualized sinuses and mastoids are clear. IMPRESSION: 1. No acute intracranial abnormalities. 2. Moderate periventricular and deep white matter chronic small vessel ischemic changes. Dictated by: Nicola Benitez M.D. on 06/14/2023 at 21:55 Approved by: Nicola Benitez M.D. on 06/14/2023 at 21:56
--- NOTE | 2023-06-14 21:13 | DI.CT.S_ITS ---
PROCEDURE: CT ABDOMEN PELVIS W CON INDICATIONS: Abdominal pain with vomiting for a month TECHNIQUE: After the administration of intravenous contrast, axial sections acquired from the lung bases to the pubic symphysis. Coronal and sagittal reformats were performed. For radiation dose reduction, the following was used: automated exposure control, adjustment of mA and/or kV according to patient size. COMPARISON: [facility], CT, CT ABDOMEN PELVIS WO/W CON, 12/09/2021, 10:21. FINDINGS: Image quality: Excellent. Lung bases: Unremarkable. Heart: No significant findings. ABDOMEN: Liver: Unremarkable. Gallbladder: Gallbladder is not visualized suggestive of prior cholecystectomy. Biliary ducts: Unremarkable. Pancreas: Unremarkable. Spleen: Unremarkable. Adrenal Glands: Unremarkable. Kidneys and Ureters: Unremarkable. Stomach and Bowel: There is a small hiatal hernia. No evidence of bowel obstruction. No gross gastric or small bowel wall thickening. Mild diffuse colonic wall thickening particularly involving ascending colon is seen. No significant mesenteric fat stranding. No abscess collection. Peritoneum: No abnormal intraperitoneal fluid. No free air. Ventral Wall: No hernias. Abdominal Nodes: No retroperitoneal or mesenteric adenopathy by size criteria. Vessels: Aorta and inferior vena cava are normal in size. PELVIS: Pelvic Organs: Patient is status post hysterectomy.. Bladder: Unremarkable. Pelvic Nodes: No enlarged lymph nodes. Miscellaneous: No hernias are seen. Bones: Sclerotic lesion in right iliac bone is seen adjacent to right sacroiliac joint unchanged from prior study. No other bony lesion is noted. No acute vertebral body compression fracture. IMPRESSION: 1. Questionable colonic wall thickening which may be due to under distension. Low-grade colitis cannot be excluded. 2. Stable sclerotic lesion in right iliac bone which may represent benign process such as bone island. 3. No renal stones or hydronephrosis. Dictated by: Nicola Benitez M.D. on 06/14/2023 at 22:08 Approved by: Nicola Benitez M.D. on 06/14/2023 at 22:12
[2023-06-14] MEDS: SODIUM CHLORIDE 0.9% 1,000 ML 200 ML IV (21:57)
[2023-06-14] MEDS: cefTRIAXone 2,000 MG in SODIUM CHLORIDE 0.9% 100 ML 200 MG IV (21:57)
[2023-06-14] MEDS: KETOROLAC 30 MG/ML VIAL 15 MG IV (22:59)
[2023-06-15] VITALS (18 sets, daily range): BP systolic 124–146; BP diastolic 60–68; PULSE 72–91; RESP 16–21; TEMP 36.5–37.6; O2SAT 85–98; BMI 42.9
[2023-06-15] MEDS: SODIUM CHLORIDE 0.9% 1,000 ML 130 ML IV ×3 (00:15→16:37)
--- NOTE | 2023-06-15 01:23 | P.HP_ITS ---
History of Present Illness History of Present Illness Date Patient Seen: 06/15/23 Time Patient Seen: 01:23 Chief complaint: SOB/ill T-14/V/D/sore throat/ Narrative: The pt is a homeless female for the past 4 months that states she has had nausea and vomiting for the past month. She reports episodes that she feels warm with sweating, shakes, chills, then nausea and vomiting, several times a day. She did have diarrhea daily but this stopped about one week ago. There has never been any fevers, melana, hemetemesis, she reports having a 10 lb weight loss since the onset. The pt has only been able to drink water since she is unable to tolerate anything else. She has not seen any provider for these symptoms before, her blood sugars have been stable she reports with readings ranging from 120- 150. Last emesis was over 24 hours ago. [facility] [place] Medical History Secondhand smoke exposure Lichen sclerosus et atrophicus Microscopic hematuria Urge incontinence Hx of migraine headaches History of depression History of chronic urinary tract infection History of arthritis Peripheral neuropathy Depression Hyperlipidemia Fibromyalgia Hypertension Lower leg edema Diabetes Surgical History Hx of abdominal hysterectomy Hx of breast biopsy Hx of total knee replacement Hx of cholecystectomy Hx of appendectomy Family History Mother Cancer CVA (cerebral vascular accident) Hyperlipidemia Hypertension Father Hypertension Hyperlipidemia CAD (coronary artery disease) Sister Hyperlipidemia Hypertension Diabetes mellitus Multiple kidney stones Migraines Brother Hyperlipidemia Hypertension Migraines Eczema Social History marital status: number of children: 4 household members: spouse lives independently: Yes Smoking Status: Never smoker alcohol intake: current caffeine: Yes Type(s) of exercise: walking frequency: 3-4 times per week duration: 15-30 minutes/day Meds Home Medications and Allergies Home Medications Medication Instructions Recorded Confirmed Type furosemide 20 mg tablet (Lasix) 20 mg PO DAILY #30 tabs 02/24/21 Rx potassium chloride 8 mEq 8 meq PO DAILY #30 caps 02/24/21 Rx capsule,extended release amlodipine PO 11/22/21 11/22/21 History atorvastatin PO 11/22/21 11/22/21 History benzonatate [Tessalon Perles] PO 11/22/21 11/22/21 History duloxetine PO 11/22/21 11/22/21 History gabapentin PO 11/22/21 11/22/21 History insulin glargine [Lantus Solostar SUBCUT 11/22/21 11/22/21 History U-100 Insulin] lisinopril 20 PO 11/22/21 11/22/21 History oxybutynin chloride PO 11/22/21 11/22/21 History meclizine 25 mg tablet 25 mg PO TID PRN dizziness #18 tabs 03/30/22 Rx semaglutide 0.25 mg or 0.5 mg (2 mg SUBCUT 06/15/23 History mg/3 mL) subcutaneous pen injector (Ozempic) Allergies Allergy/AdvReac Type Severity Reaction Status Date / Time Penicillins Allergy Unknown Verified 06/14/23 14:47 morphine AdvReac Nightmare Verified 06/14/23 14:48 Exam Vital Signs (past 8 hours): - 06/14/23 17:30 06/14/23 17:30 06/14/23 18:00 Temperature Pulse Rate 83 86 Respiratory Rate 19 15 Blood Pressure 137/63 Pulse Oximetry 97 Oxygen Delivery Method Oxygen Flow Rate 06/14/23 18:30 06/14/23 19:00 06/14/23 19:30 Temperature Pulse Rate 82 84 89 Respiratory Rate 16 24 16 Blood Pressure Pulse Oximetry 99 97 93 Oxygen Delivery Method Room Air Oxygen Flow Rate 06/14/23 20:00 06/14/23 20:30 06/14/23 21:00 Temperature Pulse Rate 86 86 86 Respiratory Rate 13 25 H 30 H Blood Pressure Pulse Oximetry 94 95 97 Oxygen Delivery Method Oxygen Flow Rate 06/14/23 21:30 06/14/23 23:06 06/15/23 00:10 Temperature 98.4 F Pulse Rate 85 83 Respiratory Rate 14 21 Blood Pressure 124/60 Pulse Oximetry 92 95 97 Oxygen Delivery Method Room Air Oxygen Flow Rate 0 Oxygen Delivery Method Room Air Oxygen Flow Rate 0 Const General: cooperative, healthy appearing, comfortable and well developed Resp Auscultation: clear to auscultation bilaterally Cardio Rate: regular rate Rhythm: regular rhythm GI Inspection: obesity Auscultation: normal bowel sounds Skin Rashes: no rashes Neuro General: patient alert, patient awake and patient oriented x3 Objective Labs 06/14/23 15:35 06/14/23 15:35 Labs: Laboratory Results - last 24 hr 06/14/23 06/14/23 06/14/23 15:35 17:00 20:07 WBC 14.2 H RBC 4.82 Hgb 14.5 Hct 41.6 MCV 86.4 MCH 30.0 MCHC 34.7 RDW 14.0 Plt Count 205 Neut % (Auto) 66.8 Lymph % (Auto) 25.7 [place] % (Auto) 5.9 Eos % (Auto) 0.9 L Baso % (Auto) 0.7 Neut # (Auto) 9500 H Lymph # (Auto) 3600 [place] # (Auto) 800 Eos # (Auto) 100 Baso # (Auto) 100 PT 13.1 H INR 1.1 Sodium 135 L Potassium 3.4 Chloride 94 L Carbon Dioxide 32 BUN 22 H Creatinine 0.92 Estimated GFR > 60 BUN/Creatinine Ratio 23.9 H Glucose 159 H Lactate 1.8 Calcium 9.9 Total Bilirubin 1.0 AST 17 ALT 16 Alkaline Phosphatase 112 Troponin I < 0.012 NT-Pro-B Natriuret Pep 57 Total Protein 7.9 Albumin 4.3 Globulin 3.6 Albumin/Globulin Ratio 1.2 Urine Color Yellow Urine Appearance Cloudy Urine pH 8.0 Ur Specific [place] 1.010 Urine Protein Negative Urine Glucose (UA) Negative Urine Ketones Negative Urine Occult Blood Negative Urine Nitrate Positive H Urine Bilirubin Negative Urine Urobilinogen 2.0 H Ur Leukocyte Esterase 1+ H Urine RBC None seen Urine WBC 5-10/hpf H Ur Squamous Epith Cells 1-5 /hpf Urine Bacteria Many (>30) H Ur Culture Indicated? Specimen cultured Chlamy pneumoniae PCR Not detected Adenovirus (PCR) Not detected B.parapertussis DNA PCR Not detected Coronavirus OC43 (PCR) Not detected Coronavirus HKU1 (PCR) Not detected Coronavirus 229E (PCR) Not detected SARS-CoV-2 (PCR) Not detected Coronavirus NL63 (PCR) Not detected Human Metapneumovir PCR Not detected Influenza Type A (PCR) Not detected Influenza Type B (PCR) Not detected M. pneumoniae (PCR) Not detected Parainfluenza 1 (PCR) Not detected Parainfluenza 2 (PCR) Not detected Parainfluenza 3 (PCR) Not detected Parainfluenza 4 (PCR) Not detected RSV (PCR) Not detected Entero/Rhino (PCR) Not detected Assessment & Plan Assessment and plan (1) Acute reaction to situational stress: Status: Acute (2) Nausea & vomiting: Qualifiers: Vomiting type: unspecified Qualified Code(s): R11.2 - Nausea with vomiting, unspecified Status: Acute (3) Acute UTI: Status: Acute (4) Depression: Qualifiers: Depression Type: persistent depressive disorder Qualified Code(s): F 34.1 - Dysthymic disorder Status: Acute (5) Hypertension: Qualifiers: Hypertension type: primary hypertension Qualified Code(s): I10 - Essential (primary) hypertension Status: Acute Plan Will admit the pt for monitoring, IV rehydration, labs reviewed and shows a wbc of 14, probably due to her UTI, UA reviewed showing signs of UTI, started on rocephin, all electrolytes within normal range, antiemetics ordered prn as well as anxiety meds which is likely a contributing factor of her complaints. Discussed with the ER provider and agree with admission. will reassess in the am. Quality VTE Deep Vein Thrombosis/Pulmonary Embolism Present on Admission: No
[2023-06-15 01:35] LABS: Add Manual Diff / Slide Review NO; Basophils Absolute Auto 100 /uL (0-100); Eosinophils Absolute Auto 200 /uL (0-450); Eosinophils Percent Auto 1.5 % (2-4); Hematocrit 37.9 % (36-46); Lymphocytes Absolute Auto 3800 /uL (1100-4500); Lymphocytes Percent Auto 34.2 % (25-40); Mean Corpuscular HGB Conc 34.2 % (30-36); Mean Corpuscular Volume 87.5 fL (80-100); Monocytes Absolute Auto 800 /uL (0-900); Neutrophils Absolute Auto 6200 /uL (1500-7000); Neutrophils Percent Auto 56.3 % (50-75); Platelet Count 204 X10^3/uL (150-400); Red Blood Cell Count 4.33 X10^6/uL (4.0-5.2); Red Cell Distribution Width 13.7 % (11.6-14.8); White Blood Cell Count 11.1 X10^3/uL (4.5-11.0)
[2023-06-15 01:46] LABS: BUN Creatinine Ratio 18.8 (6-22); Blood Urea Nitrogen 19 mg/dL (7-17); Calcium 8.7 mg/dL (8.4-10.2); Carbon Dioxide 29 mmol/L (22-32); Chloride 98 mmol/L (98-107); Estimated Glomerular Filt Rate 58 mL/min (>60); Glucose 128 mg/dL (80-110); HEMOLYSIS < 15 (0-50); Potassium 3.6 mmol/L (3.4-5.1); Sodium 136 mmol/L (137-145)
[2023-06-15] MEDS: ONDANSETRON 4 MG/2 ML INJ IV ×3 (01:52→13:58)
[2023-06-15] MEDS: PANTOPRAZOLE DR 20 MG TABLET 40 MG PO (06:12)
[2023-06-15] MEDS: METOCLOPRAMIDE HCL 5 MG TABLET 10 MG PO ×4 (08:18→20:25)
[2023-06-15] MEDS: LORazepam 0.5 MG TABLET PO (09:44)
--- NOTE | 2023-06-15 10:30 | PT.IIE ---
Current Diagnoses Dysthymic disorder (06/14/23) Acute stress reaction (06/14/23) Essential (primary) hypertension (06/14/23) Urinary tract infection, site not specified (06/14/23) Nausea with vomiting, unspecified (06/14/23) Surgical History (Last Reviewed 06/14/23 @ 15:35 by Wilmer Javed MD) Hx of abdominal hysterectomy Hx of appendectomy Hx of breast biopsy Hx of cholecystectomy Hx of total knee replacement Medical History (Last Reviewed 06/14/23 @ 15:35 by Wilmer Javed MD) Depression Diabetes Fibromyalgia History of arthritis History of chronic urinary tract infection History of depression Hx of migraine headaches Hyperlipidemia Hypertension Lichen sclerosus et atrophicus Lower leg edema Microscopic hematuria Peripheral neuropathy Secondhand smoke exposure Urge incontinence Physical Therapy Inpatient Evaluation/Re-Eval M1 PT/OT-IP Prior Functional Status Start: 06/15/23 13:06 Freq: NEEDED Status: Active Protocol: Document 06/15/23 10:30 AB (Rec: 06/15/23 13:18 AB [email or web address]) Medical Review Prior Functional Status Medical History Reviewed Yes Communication able to make needs known Mobility and Gait pt stated that was modified independent with all mobilities and ambulation using a SPC Social History Household Members spouse Living Arrangements Other Number of Floors (Floors) One Floor Number of Stairs To Enter/Railing? pt stated that she is homeless but is staying at a motel right now Home Environment Standard Height Toilet,Tub/ Shower Home Equipment Straight Cane Additional Social History Comment pt stated that her spouse just moved into an Adult Family Home and that she is waiting for the [facility] to provide a low income housing for her; at this time, pt is staying at a mot where it is state funded M2 PT-IP Current Condition Start: 06/15/23 13:06 Freq: NEEDED Status: Active Protocol: Document 06/15/23 10:30 AB (Rec: 06/15/23 13:18 AB [email or web address]) Physical Therapy Current Condition Current Condition Evaluation Date 06/15/23 Treatment Diagnosis UTI; difficulty in walking Onset Date 06/14/23 M3 PT-IP Subjective Start: 06/15/23 13:06 Freq: NEEDED Status: Active Protocol: Document 06/15/23 10:30 AB (Rec: 06/15/23 13:18 AB [email or web address]) Subjective Physical Therapy Visit Type Type Initial Evaluation Visit Start Time 10:30 Visit Stop Time 11:02 Total Visit Minutes 32 Number of SUBSTATION OPERATOR APPRENTICE Visits 0 Physical Therapy Visit Comments Patient Comments agreeable to do PT M4 PT-IP Mobility and Gait Start: 06/15/23 13:06 Freq: NEEDED Status: Active Protocol: Document 06/15/23 10:30 AB (Rec: 06/15/23 13:18 AB [id number]) PT-Bed Mobility Assessment Supine to Sit Supine to Sit Standby Assistance PT-Transfer Assessment Sit to and From Stand Sit to and from Stand Contact Guard Assistance, Minimal Assistance,1 Person Assistance,Use of Upper Extremities Equipment Transfer Assistive Device Gait Belt,Front Wheeled Walker Orthotic/Prosthetic Devices or Brace: No Transfers Transfer Destination Chair Transfer Technique ambulated Transfer Ability Level of Assist Contact Guard Assistance, Minimal Assistance,1 Person Assistance,Use of Upper Extremities Comments Mobility Comments pt supine in bed. BP: 120/66 O2 sat: 95%. completed supine to sit SBA. able to sit on EOB SBA. c/o lightheadedness in sitting. BP checked: 144/60 . O2 sat 95% DE 100. completed sit to stand CGA to min A and ambulated ~ 10 ft using FWW CGA to min A. presents with slow unsteady gait. pt agreed to stay up on the chair. positioned pt on the chair. call light and table placed within reach. Gait Assessment Gait Gait Assistance Required: Contact Guard Assist,Minimum Assistance Distance (Feet) 10 Able to Maintain Weight Bearing Status Yes During Gait Assistive Devices Assistive Device Gait Belt,Front Wheeled Walker Orthotic/Prosthetic Devices or Brace: No Gait Deviations General Gait Pattern Decreased Stride Length, Decreased Feet Clearance,Step- to Gait Factors Limiting Gait Function Factors Limiting Gait Function Decreased Activity Tolerance, Decreased Strength,Limited Range of Motion,Poor Balance, Poor Safety Awareness PT-Balance Assessment Sitting Balance and Reactions Static Sitting Balance Ability Good Dynamic Sitting Balance Ability Good Standing Balance and Reactions Static Standing Balance Ability Fair Dynamic Standing Balance Ability Fair Device Used FWW M5 PT-IP Objective Assessments Start: 06/15/23 13:06 Freq: NEEDED Status: Active Protocol: Document 06/15/23 10:30 AB (Rec: 06/15/23 13:18 AB [id number]) Orientation Orientation/Cognition Level of Alertness Alert Orientation Name,Place,Situation Language Function Ability No Deficits Noted Safety Awareness Decreased Safety Awareness Memory Description No Deficits Noted Gross Range of Motion Lower Extremity ROM Assessment Within Functional Limits Strength Lower Extremity Strength Assessment Right Impaired Hip 3+/5 Knee 3+/5 Coordination Assessment Gross Coordination Gross Coordination WNL Sensation Assessment Sensation Gross Sensation WNL Muscle Tone Muscle Tone WNL Yes M6 PT-IP Treatment Start: 06/15/23 13:06 Freq: NEEDED Status: Active Protocol: Document 06/15/23 10:30 AB (Rec: 06/15/23 13:18 AB [email or web address]) Physical Therapy Treatment Education Education Provided Safety M7 PT-IP Assessment and Plan Start: 06/15/23 13:06 Freq: NEEDED Status: Active Protocol: Document 06/15/23 10:30 AB (Rec: 06/15/23 13:18 AB [email or web address]) PT Summary Assessment and Plan Potential Rehabilitation Potential Fair Status of Condition at Evaluation Evolving Summary Impairments Pain,ROM,Strength,Balance, Coordination,Sensation,Tone, Cognition,Bed Mobility, Transfers,Gait,Activity Tolerance Assessment Summary pt is a 77 y/o F who presented to the ED with vomiting, nausea and malaise. pt admitted for UTI. pt requiring min a with transfers and ambulation using FWW and presents with decrease activity tolerance and unable to ambulate much today and is needing a FWW. d/c plan depending on progress. will continue to assess. Goals Bed Mobility Goal Independent Transfer Goal Independent,Front Wheeled Walker Gait Goal Independent,Front Wheel Walker Gait Distance 200 Other Goals improve transfers and ambulation using SPC 300 ft mod I Days to Meet Goals 10 Frequency of Treatment Frequency Of Treatment Once a Day Treatment Plan Physical Therapy Treatment Plan Bed Mobility Training,Transfer Training,Gait Training, Therapeutic Exercise,Balance Retraining,Discharge Planning, Hot or Cold Pack,Neuromuscular Re-ed,Coordination Retraining Precautions Other Precautions falls Recommendations To Nursing Amount of Assist Needed 1 Person Assist Discharge Recommendations PT Discharge Recommendations Home with Assistance,Home Health Equipment Needed for Home Before FWW if not safe with SPC Discharge Transportation Needs at Discharge Private Vehicle,Wheelchair/ Cabulance
--- NOTE | 2023-06-15 14:16 | P.PN_ITS ---
Subjective Subjective Interval history: 77 year old female admitted for UTI and persistent severe nausea. She reports this started on may 25. Today she feels a bit improved but only able to tolerate a small amount of liquid. She discussed with her PCP whom thought she had the flu. UA positive here and she has started on antibiotics. Other possible etiologies include ozempic and anxiety. Patient reports significant stress at home, including no longer being able to live with her daughter, and her being too much to take care of and being recently placed in a long-term. She has been living in a hotel paid for by [facility]. She denies difficulties with access to medicines recently. She denies urinary frequency or dysuria, but has been incontinent of urine since approximately age 42 which she finds signficantly distressing as well but has learned to live with it. Exam Vital Signs (past 8 hours): - 06/15/23 08:00 06/15/23 11:00 06/15/23 11:00 Temperature 99.0 F 98.7 F Pulse Rate 78 78 Respiratory Rate 16 16 Blood Pressure 146/67 H 140/60 Pulse Oximetry 97 92 98 Oxygen Delivery Method Room Air Oxygen Flow Rate 0 0 Oxygen Delivery Method Room Air Oxygen Flow Rate 0 Const General: cooperative, healthy appearing, comfortable and well developed Resp Auscultation: clear to auscultation bilaterally Cardio Rate: regular rate Rhythm: regular rhythm GI Inspection: obesity Auscultation: normal bowel sounds Skin Rashes: no rashes Neuro General: patient alert, patient awake and patient oriented x3 Objective Labs 06/15/23 01:20 06/15/23 01:20 Labs: Laboratory Results - last 24 hr 06/14/23 06/14/23 06/14/23 15:35 17:00 20:07 WBC 14.2 H RBC 4.82 Hgb 14.5 Hct 41.6 MCV 86.4 MCH 30.0 MCHC 34.7 RDW 14.0 Plt Count 205 Neut % (Auto) 66.8 Lymph % (Auto) 25.7 [place] % (Auto) 5.9 Eos % (Auto) 0.9 L Baso % (Auto) 0.7 Neut # (Auto) 9500 H Lymph # (Auto) 3600 [place] # (Auto) 800 Eos # (Auto) 100 Baso # (Auto) 100 PT 13.1 H INR 1.1 Sodium 135 L Potassium 3.4 Chloride 94 L Carbon Dioxide 32 BUN 22 H Creatinine 0.92 Estimated GFR > 60 BUN/Creatinine Ratio 23.9 H Glucose 159 H Lactate 1.8 Calcium 9.9 Magnesium Total Bilirubin 1.0 AST 17 ALT 16 Alkaline Phosphatase 112 Troponin I < 0.012 NT-Pro-B Natriuret Pep 57 Total Protein 7.9 Albumin 4.3 Globulin 3.6 Albumin/Globulin Ratio 1.2 Urine Color Yellow Urine Appearance Cloudy Urine pH 8.0 Ur Specific [place] 1.010 Urine Protein Negative Urine Glucose (UA) Negative Urine Ketones Negative Urine Occult Blood Negative Urine Nitrate Positive H Urine Bilirubin Negative Urine Urobilinogen 2.0 H Ur Leukocyte Esterase 1+ H Urine RBC None seen Urine WBC 5-10/hpf H Ur Squamous Epith Cells 1-5 /hpf Urine Bacteria Many (>30) H Ur Culture Indicated? Specimen cultured Chlamy pneumoniae PCR Not detected Adenovirus (PCR) Not detected B.parapertussis DNA PCR Not detected Coronavirus OC43 (PCR) Not detected Coronavirus HKU1 (PCR) Not detected Coronavirus 229E (PCR) Not detected SARS-CoV-2 (PCR) Not detected Coronavirus NL63 (PCR) Not detected Human Metapneumovir PCR Not detected Influenza Type A (PCR) Not detected Influenza Type B (PCR) Not detected M. pneumoniae (PCR) Not detected Parainfluenza 1 (PCR) Not detected Parainfluenza 2 (PCR) Not detected Parainfluenza 3 (PCR) Not detected Parainfluenza 4 (PCR) Not detected RSV (PCR) Not detected Entero/Rhino (PCR) Not detected 06/15/23 01:20 WBC 11.1 H RBC 4.33 Hgb 13.0 Hct 37.9 MCV 87.5 MCH 30.0 MCHC 34.2 RDW 13.7 Plt Count 204 Neut % (Auto) 56.3 Lymph % (Auto) 34.2 [place] % (Auto) 7.0 Eos % (Auto) 1.5 L Baso % (Auto) 1.0 Neut # (Auto) 6200 Lymph # (Auto) 3800 [place] # (Auto) 800 Eos # (Auto) 200 Baso # (Auto) 100 PT INR Sodium 136 L Potassium 3.6 Chloride 98 Carbon Dioxide 29 BUN 19 H Creatinine 1.01 Estimated GFR 58 L BUN/Creatinine Ratio 18.8 Glucose 128 H Lactate Calcium 8.7 Magnesium 2.0 Total Bilirubin AST ALT Alkaline Phosphatase Troponin I NT-Pro-B Natriuret Pep Total Protein Albumin Globulin Albumin/Globulin Ratio Urine Color Urine Appearance Urine pH Ur Specific [place] Urine Protein Urine Glucose (UA) Urine Ketones Urine Occult Blood Urine Nitrate Urine Bilirubin Urine Urobilinogen Ur Leukocyte Esterase Urine RBC Urine WBC Ur Squamous Epith Cells Urine Bacteria Ur Culture Indicated? Chlamy pneumoniae PCR Adenovirus (PCR) B.parapertussis DNA PCR Coronavirus OC43 (PCR) Coronavirus HKU1 (PCR) Coronavirus 229E (PCR) SARS-CoV-2 (PCR) Coronavirus NL63 (PCR) Human Metapneumovir PCR Influenza Type A (PCR) Influenza Type B (PCR) M. pneumoniae (PCR) Parainfluenza 1 (PCR) Parainfluenza 2 (PCR) Parainfluenza 3 (PCR) Parainfluenza 4 (PCR) RSV (PCR) Entero/Rhino (PCR) PFSH Medical History Secondhand smoke exposure Lichen sclerosus et atrophicus Microscopic hematuria Urge incontinence Hx of migraine headaches History of depression History of chronic urinary tract infection History of arthritis Peripheral neuropathy Depression Hyperlipidemia Fibromyalgia Hypertension Lower leg edema Diabetes Surgical History Hx of abdominal hysterectomy Hx of breast biopsy Hx of total knee replacement Hx of cholecystectomy Hx of appendectomy Family History Mother Cancer CVA (cerebral vascular accident) Hyperlipidemia Hypertension Father Hypertension Hyperlipidemia CAD (coronary artery disease) Sister Hyperlipidemia Hypertension Diabetes mellitus Multiple kidney stones Migraines Brother Hyperlipidemia Hypertension Migraines Eczema Social History marital status: number of children: 4 household members: spouse lives independently: Yes Smoking Status: Never smoker alcohol intake: current caffeine: Yes Type(s) of exercise: walking frequency: 3-4 times per week duration: 15-30 minutes/day Assessment & Plan Assessment & Plan narrative: 1. Acute cystitis - continue ceftriaxone, cultures pending at this time. - may be contributing to symptoms 2. Persistent nausea and vomiting, severe - probably multifactorial due to acute cystitis, anxiety, and possibly ozempic as well. - stop ozempic for now 3. DM2 - With decreased intake, glucose okay on AM labs, cut lantus from 50 to 20 today, continue sliding scale. - continue to adjust as necessary 4. HTN, chronic - resume home medications 5. HLD, chronic - continue home statin, rosuvastatin 40 mg 6. Chronic urinary incontinence - recommend outpatient follow up with urology 7. Fibromyalgia - continue home medications 8. Obesity - The patient is at much higher risk for medical and surgical complications because of their obesity. This increases the difficulty and complexity of medical and surgical interventions and increases the chances of poor outcomes such as morbidity and mortality. Code: Full, surrogate she declines to select but emergency contact listed as [facility]. I have utilized all available immediate resources to obtain, update, or review the patient's current medications. Dispo: admitted observation, will have PT evaluate to see if weakness is such that she may need SNF. Quality VTE Deep Vein Thrombosis/Pulmonary Embolism Present on Admission: No
[2023-06-15] MEDS: ACETAMINOPHEN 325 MG TABLET 650 MG PO (15:02)
[2023-06-15] MEDS: QUETIAPINE 25 MG TABLET PO (20:24)
[2023-06-15] MEDS: cefTRIAXone 1,000 MG in SODIUM CHLORIDE 0.9% 100 ML 200 MG IV (20:25)
[2023-06-15] MEDS: ATORVASTATIN 20 MG TABLET 80 MG PO (20:25)
[2023-06-15] MEDS: ENOXAPARIN 40 MG/0.4 ML SYRINGE SUBCUT (20:26)
[2023-06-15] MEDS: INSULIN GLARGINE 100 UNIT/ML 3ML PEN 20 UNIT SUBCUT (20:35)
[2023-06-15] MEDS: INSULIN LISPRO 100 UNIT/ML 3ML VIAL SUBCUT (20:36)
[2023-06-16] VITALS (28 sets, daily range): BP systolic 106–160; BP diastolic 58–76; PULSE 66–88; RESP 16–18; TEMP 36.3–36.7; O2SAT 92–97
[2023-06-16] MEDS: PANTOPRAZOLE DR 20 MG TABLET 40 MG PO (06:51)
[2023-06-16] MEDS: lisinopriL 20 MG TABLET 40 MG PO (09:12)
[2023-06-16] MEDS: ENOXAPARIN 40 MG/0.4 ML SYRINGE SUBCUT ×2 (09:14→20:59)
[2023-06-16] MEDS: METOCLOPRAMIDE HCL 5 MG TABLET 10 MG PO ×4 (09:14→20:58)
[2023-06-16] MEDS: DULOXETINE 20 MG CAPSULE PO (09:14)
[2023-06-16] MEDS: PROPRANOLOL 10 MG TABLET 20 MG PO (09:15)
--- NOTE | 2023-06-16 09:18 | PM.PN.1 ---
Subjective Subjective Interval history: 77-year-old female with diabetes mellitus type 2, peripheral neuropathy, hypertension, fibromyalgia, depression who was admitted with intractable nausea and vomiting as well as a Gram-negative slime UTI. Patient reports she tried to have a bowl of cream of rice hot cereal, half of a banana, and some tea this morning. She was only able to tolerate the banana. She is had significant nausea since. She states she has had symptoms for 3 weeks. Initially she had flu-like comes with myalgias. The myalgias improved but her nausea and vomiting did not. She states ultimately stopped eating due to her symptoms. She was able to hold down fluids. She notes her last bowel movement was 8 days ago. Exam Vital Signs (past 8 hours): - 06/16/23 03:00 06/16/23 04:00 06/16/23 07:00 Temperature 97.6 F 97.9 F Pulse Rate 75 83 Respiratory Rate 16 18 Blood Pressure 123/58 L 144/67 H Pulse Oximetry 93 93 95 Oxygen Delivery Method Room Air Oxygen Flow Rate 0 06/16/23 09:12 Temperature Pulse Rate 79 Respiratory Rate Blood Pressure 160/69 H Pulse Oximetry Oxygen Delivery Method Oxygen Flow Rate Oxygen Delivery Method Room Air Oxygen Flow Rate 0 Narrative Exam Narrative: GEN: Elderly female, Alert and oriented x 3, flushed and uncomfortable appearing HEENT:NC, Face symmetric CHEST: Respiratory excursions symmetric, CTAB CV: RRR, no M/R/G ABD: Soft, obese, NT/ND, BT present in all 4 quadrants, body habitus limits exam EXTR: warm, well perfused, no C/C/E SKIN: warm and dry, no rash NEURO: Alert and oriented x 3, nonfocal Objective Labs 06/15/23 01:20 06/15/23 01:20 [facility] Medical History Secondhand smoke exposure Lichen sclerosus et atrophicus Microscopic hematuria Urge incontinence Hx of migraine headaches History of depression History of chronic urinary tract infection History of arthritis Peripheral neuropathy Depression Hyperlipidemia Fibromyalgia Hypertension Lower leg edema Diabetes Surgical History Hx of abdominal hysterectomy Hx of breast biopsy Hx of total knee replacement Hx of cholecystectomy Hx of appendectomy Family History Mother Cancer CVA (cerebral vascular accident) Hyperlipidemia Hypertension Father Hypertension Hyperlipidemia CAD (coronary artery disease) Sister Hyperlipidemia Hypertension Diabetes mellitus Multiple kidney stones Migraines Brother Hyperlipidemia Hypertension Migraines Eczema Social History marital status: number of children: 4 household members: spouse lives independently: Yes Smoking Status: Never smoker alcohol intake: current caffeine: Yes Type(s) of exercise: walking frequency: 3-4 times per week duration: 15-30 minutes/day Assessment & Plan Assessment & Plan narrative: 1. Intractable nausea Overall, the vomiting has improved. She is receiving scheduled Reglan and as needed Zofran. Ozempic was held as it was considered to be a potential source of her nausea. She has been hydrated. Overall, her liquid intake has improved and she had over a 1000 cc in yesterday. She last had a bowel movement 8 days ago. Will treat constipation to see if that improves her symptoms. Will saline lock IV and see how she does through the day with her fluid intake. 2. Constipation Last BM 8 days ago. Will give a Dulcolax suppository. If that is ineffective, will trial an enema. I am reluctant to give her oral laxatives due to her current active nausea. 3. Gram-negative slime UTI Continues Rocephin. Sensitivities pending 4. Diabetes mellitus type 2 Blood sugars are normal this morning even with the decrease in Lantus from 50 units to 20 units. Continue sliding scale. 5. Hypertension Continue her usual home meds 6. Hyperlipidemia Continue statin therapy 7. Chronic urinary incontinence She is followed by Urology Clinic, Dr. Mendoza. 8. Fibromyalgia Continue usual home medications, including duloxetine. 9. Class 3 obesity Patient is at high risk for significant morbidity and mortality. Would greatly benefit from weight reduction. Code status Full Prophylaxis On b.i.d. Lovenox Disposition She was cleared for returning home (to the state paid motel) with assist. Will monitor through the day to see if symptoms improve enough for discharge Quality VTE Deep Vein Thrombosis/Pulmonary Embolism Present on Admission: No
--- NOTE | 2023-06-16 10:03 | PT.IPTN ---
Current Diagnoses Dysthymic disorder (06/14/23) Acute stress reaction (06/14/23) Essential (primary) hypertension (06/14/23) Urinary tract infection, site not specified (06/14/23) Nausea with vomiting, unspecified (06/14/23) Physical Therapy Treatment Note M2 PT-IP Current Condition Start: 06/15/23 13:06 Freq: NEEDED Status: Active Protocol: Document 06/15/23 10:30 AB (Rec: 06/15/23 13:18 AB [id number]) Physical Therapy Current Condition Current Condition Evaluation Date 06/15/23 Treatment Diagnosis UTI; difficulty in walking Onset Date 06/14/23 M3 PT-IP Subjective Start: 06/15/23 13:06 Freq: NEEDED Status: Active Protocol: Document 06/16/23 10:03 AB (Rec: 06/16/23 11:24 AB [email or web address]) Subjective Physical Therapy Visit Type Type Treatment Note Visit Start Time 10:03 Visit Stop Time 10:18 Total Visit Minutes 15 Number of ACCOUNT RELATIONSHIP MANAGER Visits 0 Physical Therapy Visit Comments Patient Comments agreeable to do PT M4 PT-IP Mobility and Gait Start: 06/15/23 13:06 Freq: NEEDED Status: Active Protocol: Document 06/16/23 10:03 AB (Rec: 06/16/23 11:24 AB [email or web address]) PT-Bed Mobility Assessment Supine to Sit Supine to Sit Standby Assistance PT-Transfer Assessment Sit to and From Stand Sit to and from Stand Standby Assistance Equipment Transfer Assistive Device Gait Belt,Front Wheeled Walker Orthotic/Prosthetic Devices or Brace: No Transfers Transfer Destination Chair Transfer Technique ambulated Transfer Ability Level of Assist 1 Person Assistance,Use of Upper Extremities Comments Mobility Comments pt agreeable to do PT. O2 sat at RA: 96%. completed supine to sit SBA. completed sit to stand SBA and ambulated in room using FWW ~ 60 ft SBA to CGA towards end of ambulation with increase unsteadiness, ( +) SOB and pt feeling tired . pt agreed to stay up on the chair. positioned pt on the chair. O2 sat 91% but increase to 94% in < 10 sec. call light and table placed within reach. Gait Assessment Gait Gait Assistance Required: Standby Assistance,Contact Guard Assist Distance (Feet) 60 Able to Maintain Weight Bearing Status Yes During Gait Assistive Devices Assistive Device Gait Belt,Front Wheeled Walker Orthotic/Prosthetic Devices or Brace: No Gait Deviations General Gait Pattern Decreased Stride Length, Decreased Feet Clearance Factors Limiting Gait Function Factors Limiting Gait Function Decreased Activity Tolerance, Decreased Strength M5 PT-IP Objective Assessments Start: 06/15/23 13:06 Freq: NEEDED Status: Active Protocol: Document 06/15/23 10:30 AB (Rec: 06/15/23 13:18 AB [email or web address]) Orientation Orientation/Cognition Level of Alertness Alert Orientation Name,Place,Situation Language Function Ability No Deficits Noted Safety Awareness Decreased Safety Awareness Memory Description No Deficits Noted Gross Range of Motion Lower Extremity ROM Assessment Within Functional Limits Strength Lower Extremity Strength Assessment Right Impaired Hip 3+/5 Knee 3+/5 Coordination Assessment Gross Coordination Gross Coordination WNL Sensation Assessment Sensation Gross Sensation WNL Muscle Tone Muscle Tone WNL Yes M6 PT-IP Treatment Start: 06/15/23 13:06 Freq: NEEDED Status: Active Protocol: Document 06/16/23 10:03 AB (Rec: 06/16/23 11:24 AB [email or web address]) Physical Therapy Treatment Education Education Provided Safety M7 PT-IP Assessment and Plan Start: 06/15/23 13:06 Freq: NEEDED Status: Active Protocol: Document 06/16/23 10:03 AB (Rec: 06/16/23 11:24 AB [email or web address]) PT Summary Assessment and Plan Potential Rehabilitation Potential Fair Summary Impairments Pain,ROM,Strength,Balance, Coordination,Sensation,Tone, Cognition,Bed Mobility, Transfers,Gait,Activity Tolerance Progress Towards Goals Slow Progress due to Activity Tolerance Assessment Summary pt improving slowly with mobility but continues to have decrease activity tolerance affecting mobility independence. pt requiring SBA to CGA using FWW. pt lives alone and will need assistance at home. d/c plan: home with assist and HHPT vs SNF. will continue to assess progress. Goals Bed Mobility Goal Independent Transfer Goal Independent,Front Wheeled Walker Gait Goal Independent,Front Wheel Walker Gait Distance 200 Other Goals improve transfers and ambulation using SPC 300 ft mod I Days to Meet Goals 10 Frequency of Treatment Frequency Of Treatment Once a Day Treatment Plan Physical Therapy Treatment Plan Bed Mobility Training,Transfer Training,Gait Training, Therapeutic Exercise,Balance Retraining,Discharge Planning, Hot or Cold Pack,Neuromuscular Re-ed,Coordination Retraining Precautions Other Precautions falls Recommendations To Nursing Amount of Assist Needed 1 Person Assist Discharge Recommendations PT Discharge Recommendations Home with Assistance,Home Health,SNF Rehab Equipment Needed for Home Before FWW if not safe with SPC Discharge Transportation Needs at Discharge Private Vehicle,Wheelchair/ Cabulance
[2023-06-16] MEDS: ACETAMINOPHEN 325 MG TABLET 650 MG PO ×2 (10:55→17:24)
[2023-06-16] MEDS: BISACODYL 10 MG SUPP PR (10:56)
[2023-06-16] MEDS: INSULIN LISPRO 100 UNIT/ML 3ML VIAL SUBCUT (12:14)
--- NOTE | 2023-06-16 14:14 | CM.DANOTE ---
Initial DCP Assessment Note Pt is a 77 yo female, has been residing at [facility] in [place] since February 2023. Patient presents with Intractable nausea, constipation, Gram-negative slime UTI PCP: Monie Santamaria Payer: [facility] Met w/patient to introduce self and role. According to our conversation: After patient's spouse of 20+ years in 2016, Patient spent some time out of state with her son then returned to [place] to live with her daughter Pastor in [place]. Patient then met and her second Fernandez who developed a worsening dementia and prostate cancer. Daughter Pastor was unable to accommodate patient and spouse Fernandez so they moved into a housing authority funded motel room at [facility]. Fernandez's care needs began to outweigh patient's abilities and Fernadnez was hospitalized, then placed in an [facility] in [place]. Patient continues to live in the [facility], has been independent in all aspects up until recently when she started to feel increasingly ill. Patient does not have Medicaid, makes $1,200 mo in SS income. Patient has been in contact with a social work associate through [facility] [phone]. [facility] not available over the weekend. Strongly encouraged patient to complete a Medicaid application with assistance from [facility] and patient agreed to this. Discussed discharge plan. Patient is hoping to discharge to a SNF. Discussed barriers to this plan- which includes patient's housing instability and [employer] insurance coverage. Patient stated understanding. Later reviewed PT note which indicates patient can likely return home to her motel safely. It is very unlikely [employer] will authorize a SNF stay. Plan: Discharge will likely be return to [facility]. CM team will need to discuss transport options with patient. Patient would benefit from referral if [facility] or [facility] would agree to service at [facility]. CM team will need to follow clinical course closely. Patient will need discharge coordination. RENZO Fernandes Discharge Planning/Care Management CM Discharge Assessment Start: 06/16/23 14:11 Freq: Status: Active Protocol: Document 06/16/23 14:12 ENRIQUE (Rec: 06/16/23 14:14 ENRIQUE [id number]) Discharge Planning Assessment Assigned [employer] RENZO Onofre DPOA/Assigned Designee Name dayana Baca Contact Information [phone] Advance Directives? Yes Advance Directives on File No History Provided By Patient Prior Living Arrangements Other Comment currently living in [place] motel [place], spouse in [facility] in [place] Household Members none Type of transporation used prior to Relies on Others admit Independent with ADL's Yes Is patient alert and oriented? Yes Patient/Family Preference Shelter Facility Comment Patient requesting to discharge to SNF if [employer] will authorize Barriers to Discharge Yes Comment Patient lives in a motel and does not have assistance at this time Transportation Arrangement TBD Whiteboard Updated in Patient Room with Yes name and ext. # of Manager [employer]
[2023-06-16] MEDS: MINERAL OIL 1 EACH ENEMA PR (14:34)
[2023-06-16] MEDS: INSULIN GLARGINE 100 UNIT/ML 3ML PEN 20 UNIT SUBCUT (20:57)
[2023-06-16] MEDS: cefTRIAXone 1,000 MG in SODIUM CHLORIDE 0.9% 100 ML 200 MG IV (20:57)
[2023-06-16] MEDS: ATORVASTATIN 20 MG TABLET 80 MG PO (20:58)
[2023-06-16] MEDS: QUETIAPINE 25 MG TABLET PO (20:58)
[2023-06-17] VITALS (9 sets, daily range): BP systolic 111–136; BP diastolic 55–90; PULSE 66–91; RESP 16–19; TEMP 35.9–36.3; O2SAT 93–95
[2023-06-17] MEDS: ACETAMINOPHEN 325 MG TABLET 650 MG PO (05:26)
[2023-06-17] MEDS: PANTOPRAZOLE DR 20 MG TABLET 40 MG PO (05:26)
[2023-06-17] MEDS: METOCLOPRAMIDE HCL 5 MG TABLET 10 MG PO (08:38)
[2023-06-17] MEDS: DULOXETINE 20 MG CAPSULE PO (08:38)
[2023-06-17] MEDS: ENOXAPARIN 40 MG/0.4 ML SYRINGE SUBCUT (08:39)
[2023-06-17] MEDS: PROPRANOLOL 10 MG TABLET 20 MG PO (08:39)
--- NOTE | 2023-06-17 11:50 | PT.IPTN ---
Current Diagnoses Dysthymic disorder (06/14/23) Acute stress reaction (06/14/23) Essential (primary) hypertension (06/14/23) Urinary tract infection, site not specified (06/14/23) Nausea with vomiting, unspecified (06/14/23) Physical Therapy Treatment Note M2 PT-IP Current Condition Start: 06/15/23 13:06 Freq: NEEDED Status: Active Protocol: Document 06/15/23 10:30 AB (Rec: 06/15/23 13:18 AB [id number]) Physical Therapy Current Condition Current Condition Evaluation Date 06/15/23 Treatment Diagnosis UTI; difficulty in walking Onset Date 06/14/23 M3 PT-IP Subjective Start: 06/15/23 13:06 Freq: NEEDED Status: Active Protocol: Document 06/17/23 10:56 KS (Rec: 06/17/23 11:56 KS [email or web address]) Subjective Physical Therapy Visit Type Type Treatment Note Visit Start Time 10:56 Visit Stop Time 11:50 Total Visit Minutes 23 Notes Split tx, 10:56-11:08, 11:39- 11:50 Number of FRONT END LOADER OPERATOR Visits 1 Physical Therapy Visit Comments Patient Comments agreeable to do PT M4 PT-IP Mobility and Gait Start: 06/15/23 13:06 Freq: NEEDED Status: Active Protocol: Document 06/17/23 10:56 KS (Rec: 06/17/23 11:56 KS [id number]) PT-Bed Mobility Assessment Supine to Sit Supine to Sit Standby Assistance Sit to Supine Sit to Supine Minimal Assistance Scooting Scooting to Edge of Bed Standby Assistance PT-Transfer Assessment Sit to and From Stand Sit to and from Stand Standby Assistance,1 Person Assistance,Use of Upper Extremities Equipment Transfer Assistive Device Gait Belt,Front Wheeled Walker Orthotic/Prosthetic Devices or Brace: No Transfers Transfer Destination Bed Transfer Technique ambulated Transfer Ability Level of Assist 1 Person Assistance,Use of Upper Extremities Comments Mobility Comments Pt in bed upon arrival but agreeable to ambulate. SBA for sup<>sit and sit<>stand w/ FWW. Pt then ambulated ~80 ft w/ FWW, complained of fatigue and felt somewhat shaky. Returned to bed w/ Min A for LE into bed. Pt left in bed w/ all needs in reach. Pt then ambulated ~25 ft w/ SPC and had no LOB, she feels comfortable w/ SOC and will use at home. Reports she has friends w/ FWW she could borrow if needed, but does not want to use FWW at this time. Gait Assessment Gait Gait Assistance Required: Standby Assistance,Contact Guard Assist Distance (Feet) 80 Able to Maintain Weight Bearing Status Yes During Gait Assistive Devices Assistive Device Gait Belt,Front Wheeled Walker Orthotic/Prosthetic Devices or Brace: No Gait Deviations General Gait Pattern Decreased Stride Length, Decreased Feet Clearance Factors Limiting Gait Function Factors Limiting Gait Function Decreased Activity Tolerance, Decreased Strength Comments Gait Comments Short distance due to quick approach to fatigue, stable w/ FWW. PT-Balance Assessment Sitting Balance and Reactions Static Sitting Balance Ability Good Dynamic Sitting Balance Ability Good Standing Balance and Reactions Static Standing Balance Ability Fair Dynamic Standing Balance Ability Fair Device Used FWW M5 PT-IP Objective Assessments Start: 06/15/23 13:06 Freq: NEEDED Status: Active Protocol: Document 06/15/23 10:30 AB (Rec: 06/15/23 13:18 AB [id number]) Orientation Orientation/Cognition Level of Alertness Alert Orientation Name,Place,Situation Language Function Ability No Deficits Noted Safety Awareness Decreased Safety Awareness Memory Description No Deficits Noted Gross Range of Motion Lower Extremity ROM Assessment Within Functional Limits Strength Lower Extremity Strength Assessment Right Impaired Hip 3+/5 Knee 3+/5 Coordination Assessment Gross Coordination Gross Coordination WNL Sensation Assessment Sensation Gross Sensation WNL Muscle Tone Muscle Tone WNL Yes M6 PT-IP Treatment Start: 06/15/23 13:06 Freq: NEEDED Status: Active Protocol: Document 06/17/23 10:56 KS (Rec: 06/17/23 11:56 KS [id number]) Physical Therapy Treatment Education Education Provided Safety M7 PT-IP Assessment and Plan Start: 06/15/23 13:06 Freq: NEEDED Status: Active Protocol: Document 06/17/23 10:56 KS (Rec: 06/17/23 11:56 KS [id number]) PT Summary Assessment and Plan Potential Rehabilitation Potential Fair Summary Impairments Pain,ROM,Strength,Balance, Coordination,Sensation,Tone, Cognition,Bed Mobility, Transfers,Gait,Activity Tolerance Progress Towards Goals Slow Progress due to Activity Tolerance Assessment Summary Pt continues to demonstrate low tolerance for activity, but is able to mobilize w/ mostly SBA using FWW. Pt will need some assistance and HHPT if d/c home. Goals Bed Mobility Goal Independent Transfer Goal Independent,Front Wheeled Walker Gait Goal Independent,Front Wheel Walker Gait Distance 200 Other Goals improve transfers and ambulation using SPC 300 ft mod I Days to Meet Goals 10 Frequency of Treatment Frequency Of Treatment Once a Day Treatment Plan Physical Therapy Treatment Plan Bed Mobility Training,Transfer Training,Gait Training, Therapeutic Exercise,Balance Retraining,Discharge Planning, Hot or Cold Pack,Neuromuscular Re-ed,Coordination Retraining Precautions Other Precautions falls Recommendations To Nursing Amount of Assist Needed 1 Person Assist Discharge Recommendations PT Discharge Recommendations Home with Assistance,Home Health,SNF Rehab Equipment Needed for Home Before FWW if not safe with SPC Discharge Transportation Needs at Discharge Private Vehicle,Wheelchair/ Cabulance
--- NOTE | 2023-06-17 12:40 | CM.DPC ---
Addendum entered by RENZO Moreno 06/17/23 15:33: Paulette from [facility] reports able to accept patient. SL Original Note: DCP Continued: MANAGER TERMINAL reviewed EMR. Per provider, patient likely stable for d/c back to [facility] inn today. MANAGER TERMINAL placed verbal readback order for HH. MANAGER TERMINAL completed face to face. MANAGER TERMINAL called [facility], spoke with Paulette. Open to review with patient living in a motel. MANAGER TERMINAL gave Paulette updated contact/room information. DCP Nydia kindly agreed to fax referral information. MANAGER TERMINAL spoke with patient. Agreeable to [facility] . reports agrees to [facility] if [facility] cannot accept. Reports daughter will transport her back to the [facility]. Updated RN Plan: home with dtr to transport back to [facility]. [facility] likely to follow, pending acceptance. CM team will continue to follow as needed. RENZO Moreno
--- NOTE | 2023-06-17 13:09 | PC.NURSE ---
Day shift: Pt A&O, c/o lightheadedness but no dizziness. Up to chair SBA for breakfast. Pt vitals stable. Pt agreeable to discharge plan. IV discontinued, pt items removed from the safe and given to pt. Education provided to pt, paperwork signed. Pt wheeled via wc to private vehicle with PCT and pt adult daughter at roughly 1305.
--- NOTE | 2023-06-17 19:58 | P.DS_ITS ---
History of Present Illness History of Present Illness Chief complaint: SOB/ill T-14/V/D/sore throat/ Narrative: Per history and physical: The pt is a homeless female for the past 4 months that states she has had nausea and vomiting for the past month. She reports episodes that she feels warm with sweating, shakes, chills, then nausea and vomiting, several times a day. She did have diarrhea daily but this stopped about one week ago. There has never been any fevers, melana, hemetemesis, she reports having a 10 lb weight loss since the onset. The pt has only been able to drink water since she is unable to tolerate anything else. She has not seen any provider for these symptoms before, her blood sugars have been stable she reports with readings ranging from 120- 150. Last emesis was over 24 hours ago. Discharge Providers Provider Date of admission: 06/14/23 23:13 Discharge Date: 06/17/23 Primary care physician: Monie Santamaria RN Consults: 06/14/23 23:09 Consult to Physical Therapy Evaluate & Treat Comment: Physician Instructions: Evaluate and Treat 06/15/23 00:55 Consult to Dietitian, Adult Routine Comment: Reason For Exam: lack of abilty to eat and 10 lb weight loss in 3wk Consult to NOTCH MACHINE OPERATOR - Health Evaluator Routine Comment: Consult to Pastoral Services Routine Comment: severe emnotional stress 06/17/23 11:05 Consult to Home Health Routine Comment: Reason For Exam: RN/PT Discharge provider: Elaine Helms MD Summary Hospital Course Discharge Diagnosis: 1. Intractable nausea, improved 2. Constipation, resolved 3. E coli UTI, resistant to ampicillin, Augmentin, Ancef, Cipro, when, and intermediately sensitive to Zosyn 4. Diabetes mellitus type 2, insulin dependent 5. Hypertension 6. Hyperlipidemia 7. Chronic urinary incontinence 8. Fibromyalgia 9. Class 3 obesity Hospital Course: Patient is presently housed in the [facility] with state funding due to being on housed, and presented reporting a 3 week history of flu-like symptoms, nausea, vomiting, and diarrhea. She initially thought she would a cold then developed myalgias. She subsequently developed nausea, vomiting, and diarrhea. The diarrhea resolved, but ultimately she continued to have nausea. She essentially stopped eating and got to the point where she had difficulty with drinking adequate fluids. She was seen at her primary care office and they sent her to the emergency department. She was placed on scheduled Reglan IV fluids, and as needed friend. She was also found to have evidence of a UTI and was placed on Rocephin. She made gradual improvement and had been holding down some food and fluids. However, on the morning of June 16, she noted she was feeling quite a bit worse and could not hold down much food. She remained in the hospital for an additional 24 hours. She would not had any emesis. She was tolerating her diet. She felt good enough to discharge. She will go home on an additional 2 days of scheduled Reglan. It will then be changed to as needed. It is possible she has some underlying gastroparesis which has led to her prolonged symptoms. Additionally, she had been on Ozempic which she started approximately 4 weeks ago right before the onset of the symptoms. Ozempic has been held as well. She was having low blood sugars initially and her insulin was changed from 50 units daily to 20 units daily. She is instructed to continue the lower dose until she can follow-up with her primary care provider. She is encouraged to continue frequent small meals at discharge. She was evaluated by therapy with recommendations for home health. Home health has been ordered at discharge. She was discharged in stable condition. Care was reviewed with both she and her daughter. Status at Discharge Cognitive/behavioral status at discharge: at baseline, oriented Functional status at discharge: uses cane/walker Overall status at discharge: patient is progressing back to baseline Exam Vital Signs (past 8 hours): - 06/17/23 13:00 Pulse Oximetry 95 Oxygen Delivery Method Room Air Oxygen Flow Rate 0 Oxygen Delivery Method Room Air Oxygen Flow Rate 0 Narrative Exam Narrative: GEN: Elderly female, Alert and oriented x 3, no acute distress HEENT:NC, Face symmetric CHEST: Respiratory excursions symmetric, CTAB CV: RRR, no M/R/G ABD: Soft, obese, NT/ND, BT present in all 4 quadrants, body habitus limits exam EXTR: warm, well perfused, no C/C/E SKIN: warm and dry, no rash NEURO: Alert and oriented x 3, nonfocal Objective Labs 06/15/23 01:20 06/15/23 01:20 FOR[facility]LY [facility], [facility] Medical History Secondhand smoke exposure Lichen sclerosus et atrophicus Microscopic hematuria Urge incontinence Hx of migraine headaches History of depression History of chronic urinary tract infection History of arthritis Peripheral neuropathy Depression Hyperlipidemia Fibromyalgia Hypertension Lower leg edema Diabetes Surgical History Hx of abdominal hysterectomy Hx of breast biopsy Hx of total knee replacement Hx of cholecystectomy Hx of appendectomy Family History Mother Cancer CVA (cerebral vascular accident) Hyperlipidemia Hypertension Father Hypertension Hyperlipidemia CAD (coronary artery disease) Sister Hyperlipidemia Hypertension Diabetes mellitus Multiple kidney stones Migraines Brother Hyperlipidemia Hypertension Migraines Eczema Social History marital status: number of children: 4 household members: none lives independently: Yes Smoking Status: Never smoker alcohol intake: current caffeine: Yes Type(s) of exercise: walking frequency: 3-4 times per week duration: 15-30 minutes/day Discharge Plan Discharge Plan Patient Disposition: Home Health Service Provider Discharge Comment: Your diabetes medications were adjusted. Ozempic has been discontinued. Lantus was decreased from 50 units to 20 units daily. please monitor your blood sugars closely. Follow-up with your PCP next week. Call your PCP for a BG above 400 or below 80 Please take the antibiotics until they are gone. Take reglan (metoclopramide) scheduled before meals and bedtime for 2 more days, then use only as needed Return to the ED for: inability to hold down food/fluids Fevers, chills, sweats, shortness of breath. Discharge orders & Medications Prescriptions: New insulin glargine [Lantus Solostar U-100 Insulin] 100 unit/mL (3 mL) Insulin Pen 20 unit SUBCUT 2100 Qty: 15 0RF metoclopramide HCl 5 mg Tablet 10 mg PO ACHS PRN (Reason: nausea and vomiting) Qty: 20 0RF pantoprazole 20 mg Tablet,Delayed Release (Dr/Ec) 40 mg PO 0600 Qty: 30 0RF ondansetron 4 mg tablet,disintegrating 4 mg PO Q6H PRN (Reason: nausea and vomiting) Qty: 30 0RF cefdinir 300 mg capsule 300 mg PO BID Qty: 8 0RF Continued duloxetine 20 mg capsule,delayed release(DR/EC) 20 mg PO DAILY quetiapine 25 mg tablet 25 mg PO ONCE PM propranolol 20 mg tablet 20 mg PO DAILY lisinopril 40 mg tablet 40 mg PO DAILY rosuvastatin 40 mg tablet 40 mg PO DAILY amlodipine PO Patient Comments: unsure what dosage but is definatly taking Discontinued Ozempic 0.25 mg or 0.5 mg (2 mg/3 mL) pen injector 0.5 mg SUBCUT Patient Comments: [NO ORIGINAL SIG] gabapentin PO Patient Comments: havent taken in a year , it upsets my stomach insulin glargine [Lantus Solostar U-100 Insulin] 50 unit SUBCUT DAILY Follow up/Referrals: Monie Santamaria, RN [Primary Care Provider] - Diet/Activity/Treatments Diet: Carb-consistent/Diabetic Activity: As tolerated Oxygen: N/A Visit Report/Discharge Packet Instructions: DI for Urinary Tract Infection (UTI), DI for Nausea -- Adult, Nausea and Vomiting-Adult Stand Alone Forms: Patient Portal/API, Stroke Signs & Symptoms Discharge Data Primary Care Provider: Monie Santamaria Attending Provider: Ronnie Denton Admit Date/Time: 06/14/23 23:13 Quality VTE Deep Vein Thrombosis/Pulmonary Embolism Present on Admission: No
--- NOTE | 2023-06-19 10:39 | CM.DPNOTE ---
DCP note HEAVY FORGER HELPER received call from Ellie at [facility]. Reports they are actually unable to accept patient after all. Ellie reports she forwarded all information and referral to to [facility]. HEAVY FORGER HELPER spoke with Francisca at [facility]. Reviewing ref now. RENZO Moreno
== END 2023-06-17 13:05 | disposition home health service (06) | DRG 690 ==
LOC: ED 23:03 → AC 23:14 → ICU 23:52
PROVIDERS: Emergency Medicine; Admitting Provider Internal Medicine; Emergency Provider Emergency Medicine; PCP Nurse Practitioner Family; Visit Provider Internal Medicine
DX: N39.0 Urinary tract infection, site not specified (principal); Z68.41 Body mass index [BMI] 40.0-44.9, adult; Z59.00 Homelessness unspecified; E11.9 Type 2 diabetes mellitus without complications; I10 Essential (primary) hypertension; M79.7 Fibromyalgia; K59.00 Constipation, unspecified; E78.5 Hyperlipidemia, unspecified; E66.01 Morbid (severe) obesity due to excess calories; R11.2 Nausea with vomiting, unspecified; B96.20 Unspecified Escherichia coli [E. coli] as the cause of diseases classified elsewhere; F32.A Depression, unspecified; Z79.4 Long term (current) use of insulin; Z79.85 Long-term (current) use of injectable non-insulin antidiabetic drugs
CPT/HCPCS: 36415; 70450; 71045; 74177; 80048; 80053; 81001; 82962; 83605; 83735; 83880; 84484; 85025; 85610; 87077; 87086; 87186; 87633; 93005; 96365; 96375; 96376; 97116; 97162; 97530; 99284; 99406; G0378; J0696; J1650; J1815; J1885; J2405; Q9967

== ENCOUNTER 2023-06-28 22:15 | Emergency (ER) | payer OTHER, MEDICAID, SELFPAY ==
[2023-06-15 00:31] VITALS: BMI 42.9
[2023-06-28] VITALS (7 sets, daily range): BP systolic 138–193; BP diastolic 64–88; PULSE 84–88; RESP 18–21; TEMP 36.5; O2SAT 94–97; BMI 46.2
--- NOTE | 2023-06-28 22:34 | ED.NAVMDI ---
HPI - Nausea/Vomiting/Diarrhea General Chief complaint: Nausea/Vomiting/Diarrhea Stated complaint: sick for 1 month/nausea/vomiting today Time Seen by Provider: 06/28/23 22:16 Source: patient Mode of arrival: EMS Limitations: no limitations History of Present Illness HPI Narrative: Patient is a 77-year-old female. Approximately 10 days ago was released from the hospital after spending multiple days here for nausea and vomiting and also urinary tract infection. She is completed a course of antibiotics. She stated that she felt like she was getting better when she was discharged but now is still having quite a bit of nausea. Does have a prescription for Reglan and Zofran but has not been taking these medicines. No abdominal pain. No fevers. No chest pain. No shortness of breath. She is able to tolerate a small amount of water and Gatorade. She was supposed to have labs drawn tomorrow which were ordered by her primary doctor and has an appointment on Sunday. Related Data Home Medications Medication Instructions Recorded Confirmed amlodipine PO 11/22/21 11/22/21 duloxetine 20 mg capsule,delayed 20 mg PO DAILY 06/15/23 06/15/23 release lisinopril 40 mg tablet 40 mg PO DAILY 06/15/23 06/15/23 propranolol 20 mg tablet 20 mg PO DAILY 06/15/23 06/15/23 quetiapine 25 mg tablet 25 mg PO ONCE PM 06/15/23 06/15/23 rosuvastatin 40 mg tablet 40 mg PO DAILY 06/15/23 06/15/23 Previous Rx's Medication Instructions Recorded cefdinir 300 mg capsule 300 mg PO BID #8 caps 06/16/23 insulin glargine 100 unit/mL (3 20 unit (0.2 mL) SUBCUT 2100 #15 mL 06/16/23 mL) subcutaneous pen (Lantus Solostar U-100 Insulin) metoclopramide HCl 5 mg tablet 10 mg (2 x 5 mg) PO ACHS PRN 06/16/23 nausea and vomiting #20 tabs ondansetron 4 mg disintegrating 4 mg PO Q6H PRN nausea and 06/16/23 tablet vomiting #30 tabs pantoprazole 20 mg tablet,delayed 40 mg (2 x 20 mg) PO 0600 #30 tabs 06/16/23 release Allergies Allergy/AdvReac Type Severity Reaction Status Date / Time Penicillins Allergy Severe Anaphylaxis Verified 06/15/23 15:34 morphine AdvReac Nightmare Verified 06/14/23 14:48 Review of Systems Constitutional Constitutional: Reports system reviewed and no additional complaints, except as documented Respiratory Respiratory: Reports system reviewed and no additional complaints, except as documented Gastrointestinal Gastrointestinal: Reports system reviewed and no additional complaints, except as documented Genitourinary Genitourinary: Reports system reviewed and no additional complaints, except as documented Integumentary/Breasts Skin/Breast: Reports system reviewed and no additional complaints, except as documented Neurologic Neurologic: Reports system reviewed and no additional complaints, except as documented Hematologic/Lymphatic On Anticoagulants: No Patient History Medical History Secondhand smoke exposure Lichen sclerosus et atrophicus Microscopic hematuria Urge incontinence Hx of migraine headaches History of depression History of chronic urinary tract infection History of arthritis Peripheral neuropathy Depression Hyperlipidemia Fibromyalgia Hypertension Lower leg edema Diabetes Surgical History Hx of abdominal hysterectomy Hx of breast biopsy Hx of total knee replacement Hx of cholecystectomy Hx of appendectomy Family History Mother Cancer CVA (cerebral vascular accident) Hyperlipidemia Hypertension Father Hypertension Hyperlipidemia CAD (coronary artery disease) Sister Hyperlipidemia Hypertension Diabetes mellitus Multiple kidney stones Migraines Brother Hyperlipidemia Hypertension Migraines Eczema Social History marital status: number of children: 4 household members: none lives independently: Yes Smoking Status: Never smoker alcohol intake: current caffeine: Yes Type(s) of exercise: walking frequency: 3-4 times per week duration: 15-30 minutes/day Smoking Status: Never smoker alcohol intake frequency: 0-2 drinks per day Substance Use Type: does not use Exam Initial Vital Signs Initial Vital Signs: Vital Signs Pulse Oximetry 96 06/28/23 22:18 HENMT Head: normal to inspection and normocephalic Resp Effort & Inspection: normal respiratory effort Auscultation: clear to auscultation bilaterally Cardio Rate: regular rate Rhythm: regular rhythm GI Inspection: normal to inspection and non-distended Palpation: soft and No tender Skin General: no rashes or lesions noted Neuro General: patient alert, patient awake and moves all extremities Extrem General: capillary refill normal Course Orders Ordered: ED Orders 06/28/23 22:44 Complete Blood Count AUTO DIFF Stat Comprehensive Metabolic Panel Stat Ethanol (ETOH) Stat Lipase Stat 06/28/23 22:50 Covid-19 + FLU A/B + RSV - PCR Stat 06/29/23 00:21 Urinalysis and Microscopic Stat Urine Culture Stat Discontinued Medications Sodium Chloride (Normal Saline 0.9%) 1,000 mls @ 500 mls/hr IV BOLUS ONE Stop: 06/29/23 00:15 Last Infusion: 06/29/23 00:55 Dose: Infused Documented By: Admin: 06/28/23 22:59 Dose: 500 mls/hr Documented By: BARRINGTON Ondansetron HCl (Ondansetron 4 Mg/2 Ml Inj) 4 mg IV NOW ONE Stop: 06/28/23 22:18 Last Admin: 06/28/23 22:59 Dose: 4 mg Documented By: BARRINGTON Vital Signs Vital signs: Vital Signs - 8 hr 06/28/23 22:18 06/28/23 22:19 06/28/23 22:19 Temperature Pulse Rate 86 Respiratory Rate Blood Pressure 193/88 H Pulse Oximetry 96 96 Oxygen Delivery Method 06/28/23 22:22 06/28/23 22:30 06/28/23 22:52 Temperature 97.7 F Pulse Rate 88 85 85 Respiratory Rate 18 21 Blood Pressure 193/88 H Pulse Oximetry 97 94 95 Oxygen Delivery Method Room Air 06/28/23 22:52 06/28/23 23:00 06/28/23 23:00 Temperature Pulse Rate 84 Respiratory Rate 21 Blood Pressure 148/72 H 138/64 Pulse Oximetry 94 Oxygen Delivery Method 06/28/23 23:30 06/28/23 23:30 06/29/23 00:00 Temperature Pulse Rate 86 87 Respiratory Rate 21 20 Blood Pressure 140/65 Pulse Oximetry 95 94 Oxygen Delivery Method 06/29/23 00:00 06/29/23 00:30 06/29/23 00:30 Temperature Pulse Rate 90 Respiratory Rate 22 Blood Pressure 137/63 131/60 Pulse Oximetry 94 Oxygen Delivery Method 06/29/23 01:00 06/29/23 01:00 Temperature Pulse Rate 89 Respiratory Rate 21 Blood Pressure 129/60 Pulse Oximetry 94 Oxygen Delivery Method MDM - Nausea/Vomiting/Diarrhea Medical Records Attestation: I reviewed the patient's medical records. Lab Data Attestation: I reviewed the patient's lab results. 06/28/23 22:44 06/28/23 22:44 Labs: Lab Results 06/28/23 06/28/23 06/29/23 Range/Units 22:44 22:50 00:21 WBC 12.2 H (4.5-11.0) X10^3/uL RBC 4.36 (4.0-5.2) X10^6/uL Hgb 13.1 (12.0-16.0) g/dL Hct 38.3 (36-46) % MCV 87.9 (80-100) fL MCH 30.1 (26-34) PG MCHC 34.2 (30-36) % RDW 14.6 (11.6-14.8) % Plt Count 217 (150-400) X10^3/uL Neut % (Auto) 60.2 (50-75) % Lymph % (Auto) 30.0 (25-40) % [place] % (Auto) 6.7 (3-14) % Eos % (Auto) 1.8 L (2-4) % Baso % (Auto) 1.3 (0-2) % Neut # (Auto) 7300 H (3917-2739) /uL Lymph # (Auto) 3700 (4565-5959) /uL [place] # (Auto) 800 (0-900) /uL Eos # (Auto) 200 (0-450) /uL Baso # (Auto) 200 H (0-100) /uL Sodium 136 L (137-145) mmol/L Potassium 4.0 (3.4-5.1) mmol/L Chloride 97 L (98-107) mmol/L Carbon Dioxide 29 (22-32) mmol/L BUN 28 H (7-17) mg/dL Creatinine 1.33 H (0.52-1.04) mg/dL Estimated GFR 42 L (>60) mL/min BUN/Creatinine Ratio 21.1 (6-22) Glucose 234 H (80-110) mg/dL Calcium 9.3 (8.4-10.2) mg/dL Total Bilirubin 0.7 (0.2-1.3) mg/dL AST 17 (14-36) IU/L ALT 18 (<35) IU/L Alkaline Phosphatase 105 (38-126) U/L Total Protein 7.3 (6.3-8.2) g/dL Albumin 3.8 (3.5-5.0) g/dL Globulin 3.5 (1.7-4.1) g/dL Albumin/Globulin Ratio 1.1 (1.0-2.8) Lipase 143 (23-300) U/L Urine Color Yellow Urine Appearance Sl cloudy Urine pH 6.0 (4.5-8.0) Ur Specific [place] 1.020 (1.000-1.035) Urine Protein Negative (Negative) Urine Glucose (UA) Negative (Negative) g/dL Urine Ketones Negative (NEGATIVE) Urine Occult Blood Trace-intact (Negative) Urine Nitrate Positive H (Negative) Urine Bilirubin Negative (NEGATIVE) Urine Urobilinogen 2.0 H (0.2) E.U./dL Ur Leukocyte Esterase 2+ H (NEGATIVE) Urine RBC 1-5/hpf (0-5/HPF) Urine WBC 10-30/hpf H (0-5/HPF) Ur Squamous Epith Cells 1-5 /hpf (0-5/HPF) Ur Transition Epith Cell 0-1/hpf (0-5/HPF) Urine Bacteria Many (>30) H (None) Ur Culture Indicated? Specimen cultured Ethyl Alcohol < 10 ( - 10) mg/dL SARS-CoV-2 (PCR) Negative (Negative) Influenza A (RT-PCR) Flu a negative (NEGATIVE) Influenza B (RT-PCR) Flu b negative (NEGATIVE) RSV (PCR) Negative (Negative) MDM Narrative Medical decision making narrative: Patient's labs are unremarkable however she has a nonspecific leukocytosis. She had a leukocytosis when she was admitted to the hospital. Her glucose is elevated but she is not in DKA. She does have a nitrite positive urine. Review of her medical record shows that she did have an E coli infection. She received antibiotics while she was in the hospital. This antibiotic was Rocephin. The E coli should have been susceptible to this. She does not have any specific urinary symptoms. She is incontinent of urine but has been incontinent for approximately 30 years. Plan will be is to hold on any new antibiotics until the culture from today results. We will contact her for any antibiotics if needed. I did look through her medications. She has prescriptions for Zofran and also Reglan already written for her. She states she has not been taking those because she really did not remember that she had them. I marked these medications for her and advised that she start taking them. She is tolerating oral intake. She has a follow-up with her primary doctor on Sunday which I advised that she keep. There was no indication for admission to the hospital today. No indication for radiologic studies. She was expressed understanding and agreement. Discharge Plan Departure Patient Disposition: Home Clinical Impression: Nausea & vomiting Instructions: Nausea and Vomiting-Adult Activity Restrictions/Additional Instructions: You do have 2 medicines that you could use for the nausea. One is called ondansetron/Zofran. This is a ?ODT? medication. This medicine dissolves in your mouth in his good if you were actively vomiting. The other medicine as called metoclopramide/Reglan. This medicine you do have to swallow. You can use both of these medicines as needed. You do have a urine culture pending today. We will contact you if we need to start any antibiotics based on this. Keep your follow-up appointment with your primary doctor that is scheduled on Sunday. Prescriptions: No Action duloxetine 20 mg capsule,delayed release(DR/EC) 20 mg PO DAILY quetiapine 25 mg tablet 25 mg PO ONCE PM propranolol 20 mg tablet 20 mg PO DAILY lisinopril 40 mg tablet 40 mg PO DAILY rosuvastatin 40 mg tablet 40 mg PO DAILY insulin glargine [Lantus Solostar U-100 Insulin] 100 unit/mL (3 mL) Insulin Pen 20 unit SUBCUT 2100 Qty: 15 0RF metoclopramide HCl 5 mg Tablet 10 mg PO ACHS PRN (Reason: nausea and vomiting) Qty: 20 0RF pantoprazole 20 mg Tablet,Delayed Release (Dr/Ec) 40 mg PO 0600 Qty: 30 0RF ondansetron 4 mg tablet,disintegrating 4 mg PO Q6H PRN (Reason: nausea and vomiting) Qty: 30 0RF cefdinir 300 mg capsule 300 mg PO BID Qty: 8 0RF amlodipine PO Patient Comments: unsure what dosage but is definatly taking Referrals: Monie Santamaria RN [Primary Care Provider] - Stand Alone Forms: Patient Portal/API
[2023-06-28 22:56] LABS: Add Manual Diff / Slide Review NO; Basophils Absolute Auto 200 /uL (0-100); Basophils Percent Auto 1.3 % (0-2); Eosinophils Absolute Auto 200 /uL (0-450); Eosinophils Percent Auto 1.8 % (2-4); Hematocrit 38.3 % (36-46); Hemoglobin 13.1 g/dL (12.0-16.0); Lymphocytes Absolute Auto 3700 /uL (1100-4500); Mean Corpuscular HGB Conc 34.2 % (30-36); Mean Corpuscular Hemoglobin 30.1 PG (26-34); Mean Corpuscular Volume 87.9 fL (80-100); Monocytes Absolute Auto 800 /uL (0-900); Monocytes Percent Auto 6.7 % (3-14); Neutrophils Absolute Auto 7300 /uL (1500-7000); Neutrophils Percent Auto 60.2 % (50-75); Platelet Count 217 X10^3/uL (150-400); Red Blood Cell Count 4.36 X10^6/uL (4.0-5.2); Red Cell Distribution Width 14.6 % (11.6-14.8); White Blood Cell Count 12.2 X10^3/uL (4.5-11.0)
[2023-06-28] MEDS: ONDANSETRON 4 MG/2 ML INJ IV (22:59)
[2023-06-28] MEDS: SODIUM CHLORIDE 0.9% 1,000 ML 500 ML IV (22:59)
[2023-06-28 23:05] LABS: Alanine Aminotransferase 18 IU/L (<35); Albumin 3.8 g/dL (3.5-5.0); Albumin Globulin Ratio 1.1 (1.0-2.8); Alkaline Phosphatase 105 U/L (38-126); Aspartate Aminotransferase 17 IU/L (14-36); BUN Creatinine Ratio 21.1 (6-22); Bilirubin Total 0.7 mg/dL (0.2-1.3); Blood Urea Nitrogen 28 mg/dL (7-17); Calcium 9.3 mg/dL (8.4-10.2); Carbon Dioxide 29 mmol/L (22-32); Chloride 97 mmol/L (98-107); Estimated Glomerular Filt Rate 42 mL/min (>60); Globulin 3.5 g/dL (1.7-4.1); Glucose 234 mg/dL (80-110); HEMOLYSIS < 15 (0-50); Lipase 143 U/L (23-300); Sodium 136 mmol/L (137-145); Total Protein 7.3 g/dL (6.3-8.2)
[2023-06-28 23:22] LABS: Ethanol (ETOH) < 10 mg/dL
[2023-06-28 23:50] LABS: Influenza A - CEPHEID Flu A NEGATIVE (NEGATIVE); Influenza B - CEPHEID Flu B NEGATIVE (NEGATIVE); Respiratory Syncytial Virus Negative (Negative)
[2023-06-28 23:51] LABS: COVID-19 CEPHEID 4-PLEX PCR Negative (Negative)
[2023-06-29] VITALS: BP 137/63; PULSE 87; RESP 20; O2SAT 94
[2023-06-29 00:30] VITALS: BP 131/60; PULSE 90; RESP 22; O2SAT 94
[2023-06-29 00:35] LABS: Appearance Urine UA SL CLOUDY; Bilirubin Urine UA NEGATIVE (NEGATIVE); Color Urine UA YELLOW; Glucose Urine UA NEGATIVE (Negative); Ketones Urine UA NEGATIVE (NEGATIVE); Leukocyte Esterase Urine UA 2+ (NEGATIVE); Nitrite Urine UA POSITIVE (Negative); Occult Blood Urine UA TRACE-INTACT (Negative); Protein Urine UA NEGATIVE (Negative)
[2023-06-29 00:43] LABS: Bacteria Urine Many (>30); Culture Indicated Urine Specimen Cultured; RBC Urine 1-5/HPF (0-5/HPF); Squamous Epithelial Cell Urine 1-5 /HPF (0-5/HPF); Transitional Epi Cells Urine 0-1/HPF (0-5/HPF); WBC Urine 10-30/HPF (0-5/HPF)
[2023-06-29 01:00] VITALS: BP 129/60; PULSE 89; RESP 21; O2SAT 94
== END 2023-06-29 01:15 | disposition home or self-care (01) ==
PROVIDERS: Emergency Provider Emergency Medicine; PCP Nurse Practitioner Family
DX: R11.2 Nausea with vomiting, unspecified (principal); D72.829 Elevated white blood cell count, unspecified
CPT/HCPCS: 0241U; 36415; 80053; 80320; 81001; 83690; 85025; 87077; 87086; 87186; 96374; 99284; J2405

== ENCOUNTER 2023-07-04 18:00 | Observation (INO) | payer OTHER, MEDICAID, SELFPAY ==
[2023-06-15 00:31] VITALS: BMI 42.9
[2023-07-04] VITALS (12 sets, daily range): BP systolic 126–162; BP diastolic 51–73; PULSE 67–78; RESP 16–24; TEMP 36–36.5; O2SAT 94–99; BMI 44.1
--- NOTE | 2023-07-04 18:39 | ED.SOB ---
HPI - SOB/Dyspnea General Chief Complaint: Shortness of Breath/Dyspnea Stated Complaint: 02 stats 90 /sob reffered/ Time Seen by Provider: 07/04/23 18:29 Source: patient Mode of arrival: Wheelchair History of Present Illness HPI Narrative: Patient comes to the ED by private vehicle. She was seen at the primary care clinic just 2 days ago and started on nitrofurantoin for a presumed UTI. She had been hospitalized earlier in the month for pyelonephritis and had been recovering but did not seem to be able to get all the way better and so she went to the clinic just because of fatigue and feeling poor generally. Since starting the nitrofurantoin yesterday, her symptoms really have not improved. She describes primarily a sensation of breathlessness which is exacerbated by attempting to speak. She says she has a sense of fullness in her chest but no overt chest pain. No abdominal symptoms such as pain or diarrhea or constipation, but does have some nausea. She is not aware of fever though she can not say for sure. She has no dysuria but has been incontinent for 40 years and does not typically have sensation of dysuria in the setting of known urinary tract infection. She has no extremity edema. No recent falls though she has felt very lightheaded. She feels very frustrated because she has not been improving as she would expect. Related Data Home Medications Medication Instructions Recorded Confirmed amlodipine PO 11/22/21 11/22/21 duloxetine 20 mg capsule,delayed 20 mg PO DAILY 06/15/23 06/15/23 release lisinopril 40 mg tablet 40 mg PO DAILY 06/15/23 06/15/23 propranolol 20 mg tablet 20 mg PO DAILY 06/15/23 06/15/23 quetiapine 25 mg tablet 25 mg PO ONCE PM 06/15/23 06/15/23 rosuvastatin 40 mg tablet 40 mg PO DAILY 06/15/23 06/15/23 Previous Rx's Medication Instructions Recorded insulin glargine 100 unit/mL (3 20 unit (0.2 mL) SUBCUT 2100 #15 mL 06/16/23 mL) subcutaneous pen (Lantus Solostar U-100 Insulin) metoclopramide HCl 5 mg tablet 10 mg (2 x 5 mg) PO ACHS PRN 06/16/23 nausea and vomiting #20 tabs ondansetron 4 mg disintegrating 4 mg PO Q6H PRN nausea and 06/16/23 tablet vomiting #30 tabs pantoprazole 20 mg tablet,delayed 40 mg (2 x 20 mg) PO 0600 #30 tabs 06/16/23 release Allergies Allergy/AdvReac Type Severity Reaction Status Date / Time Penicillins Allergy Severe Anaphylaxis Verified 07/04/23 18:15 morphine AdvReac Nightmare Verified 07/04/23 18:15 Patient History Medical History Secondhand smoke exposure Lichen sclerosus et atrophicus Microscopic hematuria Urge incontinence Hx of migraine headaches History of depression History of chronic urinary tract infection History of arthritis Peripheral neuropathy Depression Hyperlipidemia Fibromyalgia Hypertension Lower leg edema Diabetes Surgical History Hx of abdominal hysterectomy Hx of breast biopsy Hx of total knee replacement Hx of cholecystectomy Hx of appendectomy Family History Mother Cancer CVA (cerebral vascular accident) Hyperlipidemia Hypertension Father Hypertension Hyperlipidemia CAD (coronary artery disease) Sister Hyperlipidemia Hypertension Diabetes mellitus Multiple kidney stones Migraines Brother Hyperlipidemia Hypertension Migraines Eczema Social History marital status: number of children: 4 household members: none lives independently: Yes Smoking Status: Never smoker alcohol intake: current caffeine: Yes Type(s) of exercise: walking frequency: 3-4 times per week duration: 15-30 minutes/day Smoking Status: Never smoker alcohol intake frequency: 0-2 drinks per day Substance Use Type: does not use Exam Narrative Exam Narrative: GENERAL: Alert, cooperative and in no distress. HEAD: Atraumatic. Normocephalic. EYES: Sclera are clear without icterus. Extraocular movements are full. ENT: No rhinorrhea. Oropharynx is moist. Mouth exam is benign. NECK: Supple. Full range of motion. CARDIOVASCULAR: Normal rate and rhythm without murmur gallop or rub. RESPIRATORY: Clear to auscultation. Breath sounds equal bilaterally. No wheezes, rales, or rhonchi. GASTROINTESTINAL: Abdomen soft, non-tender, nondistended. EXTREMITIES: No edema, full range of motion. No obvious trauma. BACK: Normal inspection, no CVA tenderness. NEURO: Nonfocal examination, normal speech, normal gait. SKIN: No rash or erythema of visible areas PSYCH: Normally oriented. Normal range of affect. Appropriate behavior Initial Vital Signs Initial Vital Signs: Vital Signs Temperature 97.7 F 07/04/23 18:11 Pulse Rate 75 07/04/23 18:11 Respiratory Rate 20 07/04/23 18:11 Blood Pressure 127/62 07/04/23 18:11 Pulse Oximetry 98 07/04/23 18:11 Oxygen Delivery Method Room Air 07/04/23 18:11 Course Course Course Narrative: Well-appearing woman stating a chief complaint of significant shortness of breath but able to speak in lengthy sentences without any apparent distress. Lung examination is completely benign as are vital signs. Will check labs and chest x-ray and ECG and reassess. Because of the recent hospitalization will do a D-dimer though I think pulmonary embolism or venous thromboembolism is unlikely in the setting. I think she has low pretest probability. Her Wells PE score is 1.5 given the recent hospitalization. 2024 D-dimer is elevated, white blood cell count is elevated. Renal function is worse than baseline. Concern for pneumonia versus pulmonary embolism. Will add on CT angiography despite her low creatinine clearance, will also add on a lactate and blood cultures and reassess. 2305 Dr. Hines Accepts the admission. Orders Ordered: ED Orders 07/04/23 18:42 EKG-12 Lead Stat 07/04/23 19:32 CBC Auto Diff [Complete Blood Count AUTO DIFF] Stat CMP [Comprehensive Metabolic Panel] Stat COVID19 -Nasal RAPID Stat D Dimer Stat Lactate (Lactic Acid) Stat Magnesium Stat Troponin I Stat 07/04/23 20:24 CT angio chest PE protocol Stat 07/04/23 21:13 Blood Culture Stat Ondansetron HCl (Ondansetron 4 Mg/2 Ml Inj) 4 mg IV Q2HR PRN PRN Reason: Nausea And Vomiting Last Admin: 07/04/23 19:46 Dose: 4 mg Documented By: DINO Discontinued Medications Acetaminophen (Acetaminophen 325 Mg Tablet) 975 mg PO NOW ONE Stop: 07/04/23 18:43 Last Admin: 07/04/23 19:45 Dose: 975 mg Documented By: DINO Sodium Chloride (Normal Saline 0.9%) 1,000 mls @ 1,000 mls/hr IV BOLUS ONE Stop: 07/04/23 19:40 Last Infusion: 07/04/23 20:44 Dose: Infused Documented By: Admin: 07/04/23 19:44 Dose: 1,000 mls/hr Documented By: DINO Ceftriaxone Sodium 2,000 mg/ (Sodium Chloride) 100 mls @ 200 mls/hr IV NOW ONE Stop: 07/04/23 22:12 Last Infusion: 07/04/23 22:59 Dose: Infused Documented By: Admin: 07/04/23 22:29 Dose: 200 mls/hr Documented By: SANGEETHA Ondansetron HCl (Ondansetron 4 Mg/2 Ml Inj) 4 mg IV NOW ONE Stop: 07/04/23 22:38 Last Admin: 07/04/23 22:43 Dose: 4 mg Documented By: DINO Reevaluation(s) Reevaluation #1: CT angiography shows no pulmonary infiltrate and no pulmonary emboli. Urine culture shows pansensitive E coli greater than 100,000 colony-forming units from the . She is been on nitrofurantoin which the E coli is sensitive to but she seems to not be improving. Renal function is worse than it was the other day and her white count is higher and she feels profoundly fatigued with breathlessness with exertion. I think at this point we need to admit herFor inpatientIV antibiotics with evidence here that she has failed outpatient therapy so far though she looks pretty good otherwise. Vital Signs Vital signs: Vital Signs - 8 hr 07/04/23 18:11 07/04/23 19:50 07/04/23 20:00 Temperature 97.7 F Pulse Rate 75 71 67 Respiratory Rate 20 18 Blood Pressure 127/62 136/63 Pulse Oximetry 98 95 97 Oxygen Delivery Method Room Air Nasal Cannula 07/04/23 20:00 07/04/23 20:30 07/04/23 20:31 Temperature Pulse Rate 75 72 Respiratory Rate 18 Blood Pressure 135/63 Pulse Oximetry 99 98 Oxygen Delivery Method 07/04/23 20:31 07/04/23 21:07 07/04/23 21:08 Temperature Pulse Rate 74 74 Respiratory Rate Blood Pressure 162/73 H Pulse Oximetry 98 98 Oxygen Delivery Method 07/04/23 21:08 07/04/23 21:30 07/04/23 21:30 Temperature Pulse Rate 77 Respiratory Rate 18 Blood Pressure 161/70 H 150/69 H Pulse Oximetry 95 Oxygen Delivery Method 07/04/23 22:00 07/04/23 22:00 Temperature Pulse Rate 75 Respiratory Rate 24 Blood Pressure 147/69 H Pulse Oximetry 95 Oxygen Delivery Method MDM - SOB/Dyspnea Lab Data 07/04/23 19:32 07/04/23 19:32 Labs: Lab Results 07/04/23 Range/Units 19:32 WBC 15.4 H (4.5-11.0) X10^3/uL RBC 4.41 (4.0-5.2) X10^6/uL Hgb 13.4 (12.0-16.0) g/dL Hct 39.3 (36-46) % MCV 89.2 (80-100) fL MCH 30.4 (26-34) PG MCHC 34.1 (30-36) % RDW 14.8 (11.6-14.8) % Plt Count 204 (150-400) X10^3/uL Neut % (Auto) 65.5 (50-75) % Lymph % (Auto) 26.0 (25-40) % [place] % (Auto) 5.5 (3-14) % Eos % (Auto) 1.8 L (2-4) % Baso % (Auto) 1.2 (0-2) % Neut # (Auto) 44135 H (2922-1551) /uL Lymph # (Auto) 4000 (6827-6124) /uL [place] # (Auto) 800 (0-900) /uL Eos # (Auto) 300 (0-450) /uL Baso # (Auto) 200 H (0-100) /uL D-Dimer 2142 H (<500) ng/ml Sodium 134 L (137-145) mmol/L Potassium 3.9 (3.4-5.1) mmol/L Chloride 97 L (98-107) mmol/L Carbon Dioxide 28 (22-32) mmol/L BUN 33 H (7-17) mg/dL Creatinine 1.77 H (0.52-1.04) mg/dL Estimated GFR 30 L (>60) mL/min BUN/Creatinine Ratio 18.6 (6-22) Glucose 174 H (80-110) mg/dL Lactate 1.5 (0.7-2.1) mmol/L Calcium 9.8 (8.4-10.2) mg/dL Magnesium 1.9 (1.6-2.3) mg/dL Total Bilirubin 1.0 (0.2-1.3) mg/dL AST 20 (14-36) IU/L ALT 16 (<35) IU/L Alkaline Phosphatase 109 (38-126) U/L Troponin I < 0.012 (0.01-0.034) ng/mL Total Protein 7.5 (6.3-8.2) g/dL Albumin 4.0 (3.5-5.0) g/dL Globulin 3.5 (1.7-4.1) g/dL Albumin/Globulin Ratio 1.1 (1.0-2.8) SARS-CoV-2 (PCR) Negative (Negative) ECG Data Interpretation: ECG obtained at 7:17 p.m. shows sinus rhythm at 70 beats per minute with a QTC of 453. This ECG is normal. Discharge Plan Departure Patient Disposition: Admitted As Inpatient Clinical Impression: Acute pyelonephritis, Diabetes, Acute kidney injury Admit Date/Time: 07/04/23 23:04 Admit Provider: Kyaw Hines
[2023-07-04] MEDS: SODIUM CHLORIDE 0.9% 1,000 ML 1000 ML IV (19:44)
[2023-07-04] MEDS: ACETAMINOPHEN 325 MG TABLET 975 MG PO (19:45)
[2023-07-04] MEDS: ONDANSETRON 4 MG/2 ML INJ IV ×2 (19:46→22:43)
[2023-07-04 19:48] LABS: Add Manual Diff / Slide Review NO; Basophils Absolute Auto 200 /uL (0-100); Basophils Percent Auto 1.2 % (0-2); Eosinophils Absolute Auto 300 /uL (0-450); Eosinophils Percent Auto 1.8 % (2-4); Hematocrit 39.3 % (36-46); Hemoglobin 13.4 g/dL (12.0-16.0); Lymphocytes Absolute Auto 4000 /uL (1100-4500); Mean Corpuscular HGB Conc 34.1 % (30-36); Mean Corpuscular Hemoglobin 30.4 PG (26-34); Mean Corpuscular Volume 89.2 fL (80-100); Monocytes Absolute Auto 800 /uL (0-900); Monocytes Percent Auto 5.5 % (3-14); Neutrophils Absolute Auto 10100 /uL (1500-7000); Neutrophils Percent Auto 65.5 % (50-75); Platelet Count 204 X10^3/uL (150-400); Red Blood Cell Count 4.41 X10^6/uL (4.0-5.2); Red Cell Distribution Width 14.8 % (11.6-14.8); White Blood Cell Count 15.4 X10^3/uL (4.5-11.0)
[2023-07-04 20:17] LABS: D Dimer 2142 ng/ml (<500)
[2023-07-04 20:18] LABS: COVID19 -Nasal RAPID Negative (Negative)
[2023-07-04 20:19] LABS: Alanine Aminotransferase 16 IU/L (<35); Albumin Globulin Ratio 1.1 (1.0-2.8); Alkaline Phosphatase 109 U/L (38-126); Aspartate Aminotransferase 20 IU/L (14-36); BUN Creatinine Ratio 18.6 (6-22); Blood Urea Nitrogen 33 mg/dL (7-17); Calcium 9.8 mg/dL (8.4-10.2); Carbon Dioxide 28 mmol/L (22-32); Chloride 97 mmol/L (98-107); Estimated Glomerular Filt Rate 30 mL/min (>60); Globulin 3.5 g/dL (1.7-4.1); Glucose 174 mg/dL (80-110); HEMOLYSIS < 15 (0-50); Magnesium 1.9 mg/dL (1.6-2.3); Potassium 3.9 mmol/L (3.4-5.1); Sodium 134 mmol/L (137-145); Total Protein 7.5 g/dL (6.3-8.2)
--- NOTE | 2023-07-04 20:24 | DI.CT.S_ITS ---
PROCEDURE: CT ANGIO CHEST PE PROTOCOL INDICATIONS: Shortness of breath, elevated D-dimer, chest pain, recent TECHNIQUE: After the administration of intravenous contrast, 2 mm thick sections acquired from the pulmonary apices to the posterior costophrenic angles. 3-dimensional maximum intensity projection (MIP) coronal and sagittal reformats were then acquired through the thorax. For radiation dose reduction, the following was used: automated exposure control, adjustment of mA and/or kV according to patient size. COMPARISON: None. FINDINGS: Image quality: Diagnostic. Pulmonary arteries: Pulmonary arteries are normal in size, and demonstrate no intraluminal filling defects to suggest central pulmonary embolism. Lungs and pleura: Lungs are clear. No pleural effusions or pneumothorax. Central and peripheral airways are patent. Mediastinum: Heart size is normal, without pericardial effusion. No mediastinal or hilar adenopathy. Thoracic aorta is normal in caliber and enhancement. Esophagus is normal in caliber, tiny hiatal hernia. Bones and chest wall: No suspicious bony lesions. Ribs and thoracic spine appear intact throughout. No axillary or supraclavicular adenopathy. No thyroid nodules which require sonographic follow up, per consensus guidelines. Upper Abdomen: Visualized upper abdominal solid organs appear normal in the early arterial phase of enhancement. IMPRESSION: No pulmonary embolus. No acute cardiopulmonary process. Dictated by: Oscar Rodriguez M.D. on 07/04/2023 at 21:28 Approved by: Oscar Rodriguez M.D. on 07/04/2023 at 21:34
[2023-07-04 20:31] LABS: Troponin I < 0.012 ng/mL (0.01-0.034)
[2023-07-04 20:37] LABS: Lactate (Lactic Acid) 1.5 mmol/L (0.7-2.1)
[2023-07-04] MEDS: cefTRIAXone 2,000 MG in SODIUM CHLORIDE 0.9% 100 ML 200 MG IV (22:29)
[2023-07-05 00:35] VITALS: BP 127/51; PULSE 77; RESP 16; TEMP 36; O2SAT 95
--- NOTE | 2023-07-05 01:04 | PM.HP.1 ---
History of Present Illness History of Present Illness Chief complaint: 02 stats 90 /sob reffered/ Narrative: CC: Shortness of breath and generalized weakness + chronic nausea HPI This is a 77-year-old female with a history of fibromyalgia, depression, hypertension, recurrent UTIs, diabetes mellitus type 2, and other problems profiled in the EMR. Is is severely stressed since she was kicked out of her daughter's apartment with her demented . Her is now in an adult family home. She now stays at [facility] with the help of local subsidies. In May she had a URI and has since developed chronic nausea. This has been an ongoiong problem to date She was admitted to hospital in early June with a urinary tract infection. She had issues with nausea and vomiting so gabapentin and Ozempic were discontinued on discharge. Her Lantus was also reduced from 50 units to 20 units daily. She is now on 34 units daily. She was evaluated in the emergency room 06/29 for ongoing nausea, and dry heaves. She was given IV fluids and discharge. Urinalysis subsequently returned positive with greater than 100,000 and E. coli resistant to Cipro, cefazolin, and amoxicillin. She has been on Nitrofurnantoin for the past week. She followed up with her PCP today compalining of worsening dyspnea with persistent nausea. She manage to drink but could not eat. PCP directed her to the ER. She presents to the emergency room with ongoing nausea, dry heaves, generalized weakness, and new onset shortness of breath. She denied fever, chills, or sweats. She also denied any coughing, phlegm, or sputum production. In the emergency room she was hemodynamically stable without fever, tachycardia, hypoxemia, or dyspnea. Temperature was low at 96.8. Lungs were clear. Abdomen was benign. Repeat urinalysis pending Labs are significant for WBC 15.4, 10,000 neutrophils, D-dimer 2142, sodium 134, chloride 97, BUN 33, creatinine 1.77 previously [id number] with normal LFTs COVID-[address] pulmonary angiogram had no significant interstitial markings, infiltrate, or pulmonary embolism. EKG had normal sinus rhythm with no acute ischemic changes. She was medicated with IV fluids, Rocephin, and antiemetics. She will be admitted for further evaluation and treatment. [facility], LAT[facility] Medical History Secondhand smoke exposure Lichen sclerosus et atrophicus Microscopic hematuria Urge incontinence Hx of migraine headaches History of depression History of chronic urinary tract infection History of arthritis Peripheral neuropathy Depression Hyperlipidemia Fibromyalgia Hypertension Lower leg edema Diabetes Surgical History Hx of abdominal hysterectomy Hx of breast biopsy Hx of total knee replacement Hx of cholecystectomy Hx of appendectomy Family History Mother Cancer CVA (cerebral vascular accident) Hyperlipidemia Hypertension Father Hypertension Hyperlipidemia CAD (coronary artery disease) Sister Hyperlipidemia Hypertension Diabetes mellitus Multiple kidney stones Migraines Brother Hyperlipidemia Hypertension Migraines Eczema Social History marital status: number of children: 4 household members: none lives independently: Yes Smoking Status: Never smoker alcohol intake: current caffeine: Yes Type(s) of exercise: walking frequency: 3-4 times per week duration: 15-30 minutes/day Comment: Severe social stress. Daughter kicker her and out of apartment due to worsening dementia in . He is not in an AFH. Patient now stays in a motel. Meds Home Medications and Allergies Home Medications Medication Instructions Recorded Confirmed Type amlodipine PO DAILY 11/22/21 11/22/21 History duloxetine 20 mg capsule,delayed 20 mg PO DAILY 06/15/23 07/05/23 History release lisinopril 40 mg tablet 40 mg PO DAILY 06/15/23 07/05/23 History propranolol 20 mg tablet 20 mg PO BEDTIME 06/15/23 07/05/23 History quetiapine 25 mg tablet 25 mg PO BEDTIME 06/15/23 07/05/23 History rosuvastatin 40 mg tablet 40 mg PO DAILY 06/15/23 07/05/23 History metoclopramide HCl 5 mg tablet 10 mg (2 x 5 mg) PO ACHS PRN 06/16/23 07/05/23 Rx nausea and vomiting #20 tabs ondansetron 4 mg disintegrating 4 mg PO Q6H PRN nausea and 06/16/23 07/05/23 Rx tablet vomiting #30 tabs pantoprazole 20 mg tablet,delayed 40 mg (2 x 20 mg) PO 0600 #30 tabs 06/16/23 07/05/23 Rx release insulin glargine 100 unit/mL (3 34 unit SUBCUT 2100 07/05/23 07/05/23 History mL) subcutaneous pen (Lantus Solostar U-100 Insulin) nitrofurantoin macrocrystal 100 mg 100 mg PO BID 07/05/23 07/05/23 History capsule potassium chloride 10 mEq 10 meq PO Q OTHER DAY 07/05/23 07/05/23 History tablet,extended release Allergies Allergy/AdvReac Type Severity Reaction Status Date / Time Penicillins Allergy Severe Anaphylaxis Verified 07/04/23 18:15 morphine AdvReac Nightmare Verified 07/04/23 18:15 Review of Systems Review of Systems Narrative: Significant for HPI findings. Reglan works best for her nausea. Dyspnea started after taking macrodantin. Rest of complete ROS is negative Exam Vital Signs (past 8 hours): - 07/04/23 18:11 07/04/23 19:50 07/04/23 20:00 Temperature 97.7 F Pulse Rate 75 71 67 Respiratory Rate 20 18 Blood Pressure 127/62 136/63 Pulse Oximetry 98 95 97 Oxygen Delivery Method Room Air Nasal Cannula Oxygen Flow Rate 07/04/23 20:00 07/04/23 20:30 07/04/23 20:31 Temperature Pulse Rate 75 72 Respiratory Rate 18 Blood Pressure 135/63 Pulse Oximetry 99 98 Oxygen Delivery Method Oxygen Flow Rate 07/04/23 20:31 07/04/23 21:07 07/04/23 21:08 Temperature Pulse Rate 74 74 Respiratory Rate Blood Pressure 162/73 H Pulse Oximetry 98 98 Oxygen Delivery Method Oxygen Flow Rate 07/04/23 21:08 07/04/23 21:30 07/04/23 21:30 Temperature Pulse Rate 77 Respiratory Rate 18 Blood Pressure 161/70 H 150/69 H Pulse Oximetry 95 Oxygen Delivery Method Oxygen Flow Rate 07/04/23 22:00 07/04/23 22:00 07/04/23 22:30 Temperature Pulse Rate 75 Respiratory Rate 24 Blood Pressure 147/69 H 143/68 H Pulse Oximetry 95 Oxygen Delivery Method Oxygen Flow Rate 07/04/23 22:30 07/04/23 23:00 07/04/23 23:00 Temperature Pulse Rate 74 78 Respiratory Rate 18 Blood Pressure 142/64 H Pulse Oximetry 94 94 Oxygen Delivery Method Oxygen Flow Rate 07/04/23 23:46 07/05/23 00:35 Temperature 96.8 F L 96.8 F L Pulse Rate 77 77 Respiratory Rate 16 16 Blood Pressure 126/51 L 127/51 L Pulse Oximetry 95 95 Oxygen Delivery Method Oxygen Flow Rate 0 0 Oxygen Delivery Method Nasal Cannula Oxygen Flow Rate 0 Narrative Exam Narrative: EXAMINATION: Bedside RN assisted in examination along with telemedicine devices. Please note there are inherent limitations to this exam. GEN: Alert and oriented x3 appears fatigued HEENT: Normocephalic. Pupils are equal. Mucous membranes are moist. NECK: No lumps, JVD, or bruit CVS: S1 + S2 without murmur RESP: Clear to auscultation bilaterally GIT: Soft, nontender, + Bowel Sounds +LArge Abdomen and body habitus EXTR: 1+ Edema bilaterally NEURO: Cranial Nerves intact. No gross focal motor deficits SKIN: No rash or breakdown Objective ECG Impression: NSR with no acute ischemic changes Imaging ct chest: My impression: No PE Radiologist's impression: IMPRESSION: No pulmonary embolus. No acute cardiopulmonary process. Dictated by: Oscar Rodriguez M.D. on 07/04/2023 at 21:28 Approved by: Oscar Rodriguez M.D. on 07/04/2023 at 21:34 Labs 07/04/23 19:32 07/04/23 19:32 Labs: Laboratory Results - last 24 hr 07/04/23 19:32 WBC 15.4 H RBC 4.41 Hgb 13.4 Hct 39.3 MCV 89.2 MCH 30.4 MCHC 34.1 RDW 14.8 Plt Count 204 Neut % (Auto) 65.5 Lymph % (Auto) 26.0 [place] % (Auto) 5.5 Eos % (Auto) 1.8 L Baso % (Auto) 1.2 Neut # (Auto) 11797 H Lymph # (Auto) 4000 [place] # (Auto) 800 Eos # (Auto) 300 Baso # (Auto) 200 H D-Dimer 2142 H Sodium 134 L Potassium 3.9 Chloride 97 L Carbon Dioxide 28 BUN 33 H Creatinine 1.77 H Estimated GFR 30 L BUN/Creatinine Ratio 18.6 Glucose 174 H Lactate 1.5 Calcium 9.8 Magnesium 1.9 Total Bilirubin 1.0 AST 20 ALT 16 Alkaline Phosphatase 109 Troponin I < 0.012 Total Protein 7.5 Albumin 4.0 Globulin 3.5 Albumin/Globulin Ratio 1.1 SARS-CoV-2 (PCR) Negative Assessment & Plan Assessment & Plan narrative: ASSESSMENT/PLAN: This is a 77-year-old female with a history of fibromyalgia, depression, hypertension, recurrent UTIs, diabetes mellitus type 2, and other problems profiled in the EMR. She is admitted for dyspnea after starting macrodantin, UTI, KENN, and dehydratoin with chronic nausea and vomiting #UTI: Urine incontinence E Coli -Stop macrodantin -Rocephin daily #Dyspnea: possible from Macrodantin May have had early nitrofurantoin induced pneumonitis Normal CT - pulmonary angiogram No pulmonary edema to suggest CHF exacerbation Clinically dehydrated with Cr 1.77 -Stop macrodantin -Observe -BNP in am #elevated Dimer 2141 No PE. Needs eval for Dt Dimer may be acute phase reactant or related to chronic inflammation -Leg doppler #NAusea and vomiting Suspect diabetic gastroparesis Ozempic and gapapentin stopped -Reglan AC/HS (Reports this has helped her symptoms) DVT Risk -Lovenox FEN: -Normal saline CODE STATUS: -Full code # SECONDARY PROBLEMS Migraines Depression Situation stress: living in [facility], in [facility], daughter estranged Fibromyalgia -Cymbalta -Propanolol -Seroquel Peripheral neuropathy -Gabapentin stopped due to nausea -Cymbalta Hypertension -Hold lisniopril due to KENN -Amlodipine -Propranolol Diabetes mellitus type 2 Hyperlipidemia -Lantus -humalog sliding scale -A1c in am -Crestor>> Atorvastatin Arthritis Leg edema -Tylenol -No diureics for now Kyaw Hines MD [facility] Telemedicine
[2023-07-05] MEDS: SODIUM CHLORIDE 0.9% 1,000 ML 100 ML IV ×3 (01:11→21:44)
--- NOTE | 2023-07-05 01:24 | DI.US.S_ITS ---
PROCEDURE: US PERIPH VENOUS LOW EXTREM BI INDICATIONS: EDEMA TECHNIQUE: Real-time imaging, as well as color and pulse Doppler interrogation, were performed of the deep veins of both legs from the inguinal ligament to the popliteal fossa, with documentation of the visualized calf veins. COMPARISON: None. FINDINGS: Right: The common femoral, femoral, popliteal, and the visualized calf veins are normally compressible, and free of intraluminal thrombus. Color and pulse Doppler demonstrate normal phasic intravascular flow. There is normal augmentation response to distal compression maneuver. Left: The common femoral, femoral, popliteal, and the visualized calf veins are normally compressible, and free of intraluminal thrombus. Color and pulse Doppler demonstrate normal phasic intravascular flow. There is normal augmentation response to distal compression maneuver. IMPRESSION: No findings of deep venous thrombosis in either lower extremity. Dictated by: Brianna Wasserman M.D. on 07/05/2023 at 14:48 Approved by: Brianna Wasserman M.D. on 07/05/2023 at 14:50
[2023-07-05 03:02] LABS: Influenza A - CEPHEID Flu A NEGATIVE (NEGATIVE); Influenza B - CEPHEID Flu B NEGATIVE (NEGATIVE)
[2023-07-05] MEDS: ONDANSETRON 4 MG/2 ML INJ IV (03:26)
[2023-07-05 04:35] VITALS: BP 130/62; PULSE 80; RESP 16; TEMP 36.7; O2SAT 96
[2023-07-05] MEDS: PANTOPRAZOLE DR 20 MG TABLET 40 MG PO (05:56)
[2023-07-05 06:27] LABS: Add Manual Diff / Slide Review NO; Basophils Absolute Auto 100 /uL (0-100); Basophils Percent Auto 0.7 % (0-2); Eosinophils Absolute Auto 300 /uL (0-450); Eosinophils Percent Auto 2.5 % (2-4); Hematocrit 35.9 % (36-46); Hemoglobin 12.3 g/dL (12.0-16.0); Lymphocytes Absolute Auto 3500 /uL (1100-4500); Lymphocytes Percent Auto 29.9 % (25-40); Mean Corpuscular HGB Conc 34.3 % (30-36); Mean Corpuscular Hemoglobin 30.5 PG (26-34); Monocytes Absolute Auto 800 /uL (0-900); Monocytes Percent Auto 6.7 % (3-14); Neutrophils Absolute Auto 7000 /uL (1500-7000); Neutrophils Percent Auto 60.2 % (50-75); Platelet Count 209 X10^3/uL (150-400); Red Blood Cell Count 4.03 X10^6/uL (4.0-5.2); Red Cell Distribution Width 14.5 % (11.6-14.8); White Blood Cell Count 11.6 X10^3/uL (4.5-11.0)
[2023-07-05 06:43] LABS: BUN Creatinine Ratio 20.7 (6-22); Blood Urea Nitrogen 28 mg/dL (7-17); Calcium 8.9 mg/dL (8.4-10.2); Carbon Dioxide 28 mmol/L (22-32); Chloride 100 mmol/L (98-107); Estimated Glomerular Filt Rate 41 mL/min (>60); Glucose 185 mg/dL (80-110); HEMOLYSIS < 15 (0-50); Potassium 3.5 mmol/L (3.4-5.1); Sodium 134 mmol/L (137-145)
[2023-07-05 08:00] VITALS: BP 112/45; PULSE 75; RESP 18; TEMP 36.3; O2SAT 95
--- NOTE | 2023-07-05 08:29 | PM.HP.1 ---
History of Present Illness History of Present Illness Chief complaint: 02 stats 90 /sob reffered/ Narrative: CC: Shortness of breath and generalized weakness + chronic nausea HPI This is a 77-year-old female with a history of fibromyalgia, depression, hypertension, recurrent UTIs, diabetes mellitus type 2, and other problems profiled in the EMR. Is is severely stressed since she was kicked out of her daughter's apartment with her demented . Her is now in an adult family home. She now stays at [facility] with the help of local subsidies. In May she had a URI and has since developed chronic nausea. This has been an ongoiong problem to date She was admitted to hospital in early June with a urinary tract infection. She had issues with nausea and vomiting so gabapentin and Ozempic were discontinued on discharge. Her Lantus was also reduced from 50 units to 20 units daily. She is now on 34 units daily. She was evaluated in the emergency room 06/29 for ongoing nausea, and dry heaves. She was given IV fluids and discharge. Urinalysis subsequently returned positive with greater than 100,000 and E. coli resistant to Cipro, cefazolin, and amoxicillin. She has been on Nitrofurnantoin for the past week. She followed up with her PCP today compalining of worsening dyspnea with persistent nausea. She manage to drink but could not eat. PCP directed her to the ER. She presents to the emergency room with ongoing nausea, dry heaves, generalized weakness, and new onset shortness of breath. She denied fever, chills, or sweats. She also denied any coughing, phlegm, or sputum production. In the emergency room she was hemodynamically stable without fever, tachycardia, hypoxemia, or dyspnea. Temperature was low at 96.8. Lungs were clear. Abdomen was benign. Repeat urinalysis pending Labs are significant for WBC 15.4, 10,000 neutrophils, D-dimer 2142, sodium 134, chloride 97, BUN 33, creatinine 1.77 previously [id number] with normal LFTs COVID-[address] pulmonary angiogram had no significant interstitial markings, infiltrate, or pulmonary embolism. EKG had normal sinus rhythm with no acute ischemic changes. She was medicated with IV fluids, Rocephin, and antiemetics. She will be admitted for further evaluation and treatment. [facility] Medical History Secondhand smoke exposure Lichen sclerosus et atrophicus Microscopic hematuria Urge incontinence Hx of migraine headaches History of depression History of chronic urinary tract infection History of arthritis Peripheral neuropathy Depression Hyperlipidemia Fibromyalgia Hypertension Lower leg edema Diabetes Surgical History Hx of abdominal hysterectomy Hx of breast biopsy Hx of total knee replacement Hx of cholecystectomy Hx of appendectomy Family History Mother Cancer CVA (cerebral vascular accident) Hyperlipidemia Hypertension Father Hypertension Hyperlipidemia CAD (coronary artery disease) Sister Hyperlipidemia Hypertension Diabetes mellitus Multiple kidney stones Migraines Brother Hyperlipidemia Hypertension Migraines Eczema Social History marital status: number of children: 4 household members: none lives independently: Yes Smoking Status: Never smoker alcohol intake: current caffeine: Yes Type(s) of exercise: walking frequency: 3-4 times per week duration: 15-30 minutes/day Meds Home Medications and Allergies Home Medications Medication Instructions Recorded Confirmed Type amlodipine PO DAILY 11/22/21 11/22/21 History duloxetine 20 mg capsule,delayed 20 mg PO DAILY 06/15/23 07/05/23 History release lisinopril 40 mg tablet 40 mg PO DAILY 06/15/23 07/05/23 History propranolol 20 mg tablet 20 mg PO BEDTIME 06/15/23 07/05/23 History quetiapine 25 mg tablet 25 mg PO BEDTIME 06/15/23 07/05/23 History rosuvastatin 40 mg tablet 40 mg PO DAILY 06/15/23 07/05/23 History metoclopramide HCl 5 mg tablet 10 mg (2 x 5 mg) PO ACHS PRN 06/16/23 07/05/23 Rx nausea and vomiting #20 tabs ondansetron 4 mg disintegrating 4 mg PO Q6H PRN nausea and 06/16/23 07/05/23 Rx tablet vomiting #30 tabs pantoprazole 20 mg tablet,delayed 40 mg (2 x 20 mg) PO 0600 #30 tabs 06/16/23 07/05/23 Rx release insulin glargine 100 unit/mL (3 34 unit SUBCUT 2100 07/05/23 07/05/23 History mL) subcutaneous pen (Lantus Solostar U-100 Insulin) nitrofurantoin macrocrystal 100 mg 100 mg PO BID 07/05/23 07/05/23 History capsule potassium chloride 10 mEq 10 meq PO Q OTHER DAY 07/05/23 07/05/23 History tablet,extended release Allergies Allergy/AdvReac Type Severity Reaction Status Date / Time Penicillins Allergy Severe Anaphylaxis Verified 07/04/23 18:15 morphine AdvReac Nightmare Verified 07/04/23 18:15 Review of Systems Review of Systems Narrative: Significant for HPI findings. Reglan works best for her nausea. Dyspnea started after taking macrodantin. Rest of complete ROS is negative Exam Vital Signs (past 8 hours): - 07/05/23 00:35 07/05/23 04:35 Temperature 96.8 F L 98.0 F Pulse Rate 77 80 Respiratory Rate 16 16 Blood Pressure 127/51 L 130/62 Pulse Oximetry 95 96 Oxygen Flow Rate 0 0 Oxygen Delivery Method Nasal Cannula Oxygen Flow Rate 0 Narrative Exam Narrative: EXAMINATION: Bedside RN assisted in examination along with telemedicine devices. Please note there are inherent limitations to this exam. GEN: Alert and oriented x3 appears fatigued HEENT: Normocephalic. Pupils are equal. Mucous membranes are moist. NECK: No lumps, JVD, or bruit CVS: S1 + S2 without murmur RESP: Clear to auscultation bilaterally GIT: Soft, nontender, + Bowel Sounds +Large Abdomen and body habitus EXTR: 1+ Edema bilaterally NEURO: Cranial Nerves intact. No gross focal motor deficits SKIN: No rash or breakdown Objective Labs 07/05/23 06:15 07/05/23 06:15 Labs: Laboratory Results - last 24 hr 07/04/23 07/05/23 07/05/23 19:32 02:20 06:15 WBC 15.4 H 11.6 H RBC 4.41 4.03 Hgb 13.4 12.3 Hct 39.3 35.9 L MCV 89.2 89.0 MCH 30.4 30.5 MCHC 34.1 34.3 RDW 14.8 14.5 Plt Count 204 209 Neut % (Auto) 65.5 60.2 Lymph % (Auto) 26.0 29.9 [place] % (Auto) 5.5 6.7 Eos % (Auto) 1.8 L 2.5 Baso % (Auto) 1.2 0.7 Neut # (Auto) 44311 H 7000 Lymph # (Auto) 4000 3500 [place] # (Auto) 800 800 Eos # (Auto) 300 300 Baso # (Auto) 200 H 100 D-Dimer 2142 H Sodium 134 L 134 L Potassium 3.9 3.5 Chloride 97 L 100 Carbon Dioxide 28 28 BUN 33 H 28 H Creatinine 1.77 H 1.35 H Estimated GFR 30 L 41 L BUN/Creatinine Ratio 18.6 20.7 Glucose 174 H 185 H Hemoglobin A1c 8.0 H Lactate 1.5 Calcium 9.8 8.9 Magnesium 1.9 Total Bilirubin 1.0 AST 20 ALT 16 Alkaline Phosphatase 109 Troponin I < 0.012 Total Protein 7.5 Albumin 4.0 Globulin 3.5 Albumin/Globulin Ratio 1.1 SARS-CoV-2 (PCR) Negative Influenza A (RT-PCR) Flu a negative Influenza B (RT-PCR) Flu b negative Assessment & Plan Assessment & Plan narrative: ASSESSMENT/PLAN: This is a 77-year-old female with a history of fibromyalgia, depression, hypertension, recurrent UTIs, diabetes mellitus type 2, and other problems profiled in the EMR. She is admitted for dyspnea after starting macrodantin, UTI, KENN, and dehydratoin with chronic nausea and vomiting #UTI: Urine incontinence, UA with pyuria E Coli on recent culture -Stop macrodantin -Rocephin daily #Dyspnea: possible from Macrodantin May have had early nitrofurantoin induced pneumonitis, or deconditioning Normal CT - pulmonary angiogram No pulmonary edema to suggest CHF exacerbation Clinically dehydrated with Cr 1.77 -Stop macrodantin -Observe -Cr improving #KENN, improving Cr 1.77, receiving IVF now downtrending #elevated Dimer 2142 No PE. Needs eval for DVT Dimer may be acute phase reactant or related to chronic inflammation -Leg doppler #Nausea and vomiting Suspect diabetic gastroparesis Ozempic and gapapentin stopped -Reglan AC/HS (Reports this has helped her symptoms) DVT Risk -Lovenox FEN: -Normal saline CODE STATUS: -Full code # SECONDARY PROBLEMS Migraines Depression Situation stress: living in [facility], in [facility], daughter estranged Fibromyalgia -Cymbalta -Propanolol -Seroquel Peripheral neuropathy -Gabapentin stopped due to nausea -Cymbalta Hypertension -Hold lisniopril due to KENN -Amlodipine -Propranolol Diabetes mellitus type 2 Hyperlipidemia -Lantus -humalog sliding scale -A1c 8% -Crestor>> Atorvastatin Arthritis Leg edema -Tylenol -No diuretics for now Dispo: Per PT home with assist. Home in 1-2 days.
[2023-07-05] MEDS: SCOPOLAMINE 1 PATCH TOP (08:43)
[2023-07-05] MEDS: HEPARIN 5,000 UNIT/ML VIAL 5000 UNIT SUBCUT (08:43)
[2023-07-05] MEDS: ATORVASTATIN 20 MG TABLET 80 MG PO (08:43)
[2023-07-05] MEDS: AMLODIPINE 5 MG TABLET PO (08:43)
[2023-07-05] MEDS: DULOXETINE 20 MG CAPSULE PO (08:43)
[2023-07-05] MEDS: INSULIN LISPRO 100 UNIT/ML 3ML VIAL SUBCUT ×4 (08:44→20:33)
--- NOTE | 2023-07-05 11:38 | CM.DANOTE ---
DCP: Case received, EMR reviewed and met with patient. Introduced self and role. Was able to obtain information regarding patient's baseline activity status as well as her current living situation. DCP assessment completed with information currently available. Patient is a 77 year old female who admitted yesterday evening to the care of the hospitalist team. PCP: Dr. Santamaria Payer: confirmed: [employer]. Patient came to the hospital via private vehicle secondary to having fatigue, feeling poorly. Notes indicate that patient had seen her primary care provider a couple of days ago, and placed her on Nitrofurantin for UTI. Patient was also complaining of feeling lightheaded. Patient had also complained of shortness of breath. Patient was diagnosed with UTI, KENN, dehydration. Met with patient in her room. Confirmed that she was here recently earlier this month. Patient is alert and oriented, teary, at times. Confirmed that she resides at the [facility] in [place]. Notes indicate that spouse is in an adult family home, and stays at the mot with the assistance of subsidies. Patient confirmed that she has a director case managementlandscape manager worker, Nola Sylvester, who assists patient with resources, as well as drives her to appointments if needed, since she stopped driving in May. Patient also has a daughter, Pastor Crocker, who is in [place], stated she also drives her to appointments as well. Patient has a cane, and walker if needed. She is currently under [facility], had Jenny send an email to them letting them know that she is here. Will send DC Summary upon discharge, if she becomes inpatient, will send resumption orders. P: DCP to continue to follow. Plan is home when stable with [facility] to resume. Hanh Pham RN/Interventional Technologist Discharge Planning/Care Management CM Discharge Assessment Start: 07/05/23 11:34 Freq: Status: Active Protocol: Document 07/05/23 11:34 (Rec: 07/05/23 11:37 [id number]) Discharge Planning Assessment Assigned Crawler Crane Operator Hanh Pham RN/Interventional Technologist Advance Directives? Yes Advance Directives on File No History Provided By Patient,Medical Record Prior Living Arrangements Other Comment lives in a motel at this time Household Members none Type of transporation used prior to Relies on Others admit Comment Stopped driving in May. Independent with ADL's Yes Is patient alert and oriented? Yes Needs Assistance With Meal Prep,Home Chores / Shopping Caregiver for Another No DME Already Rented / Owned FWW / Walker,Cane Patient/Family Preference Home with Home Health Comment Patient is currently under [facility] . Barriers to Discharge No Comment Patient lives in a motel and does not have assistance at this time, and she has a director case managementlandscape manager worker as well. Discharge Plan Home Transportation Arrangement Daughter Referrals Initiated None needed Whiteboard Updated in Patient Room with Yes name and ext. # of Crawler Crane Operator Review Status In Process Next Review Type Continued Stay Review
[2023-07-05 11:55] VITALS: BP 101/54; PULSE 84; RESP 16; TEMP 36.1; O2SAT 95
--- NOTE | 2023-07-05 13:23 | PT.IIE ---
Surgical History (Last Reviewed 06/14/23 @ 15:35 by Wilmer Javed MD) Hx of abdominal hysterectomy Hx of appendectomy Hx of breast biopsy Hx of cholecystectomy Hx of total knee replacement Medical History (Last Reviewed 06/28/23 @ 22:36 by Ronnie Tong DO) Depression Diabetes Fibromyalgia History of arthritis History of chronic urinary tract infection History of depression Hx of migraine headaches Hyperlipidemia Hypertension Lichen sclerosus et atrophicus Lower leg edema Microscopic hematuria Peripheral neuropathy Secondhand smoke exposure Urge incontinence Physical Therapy Inpatient Evaluation/Re-Eval M1 PT/OT-IP Prior Functional Status Start: 07/05/23 12:38 Freq: NEEDED Status: Active Protocol: Document 07/05/23 12:40 MB (Rec: 07/05/23 13:23 MB [id number]) Medical Review Prior Functional Status Medical History Reviewed Yes Diet/Fluid Consistency Regular Communication WNLs Mobility and Gait Mod I with RW short distances Activities of Daily Living and IADL's Assistance with bathing over the past month from Social History Household Members none Living Arrangements Other Number of Floors (Floors) One Floor Number of Stairs To Enter/Railing? Pt is living at hotel and there are no steps Home Environment Standard Height Toilet,Tub/ Shower Home Equipment Front Wheel Walker Employment Status Retired M2 PT-IP Current Condition Start: 07/05/23 12:38 Freq: NEEDED Status: Active Protocol: Document 07/05/23 12:40 MB (Rec: 07/05/23 13:23 MB [id number]) Physical Therapy Current Condition Current Condition Evaluation Date 07/05/23 Treatment Diagnosis SOB/infection M3 PT-IP Subjective Start: 07/05/23 12:38 Freq: NEEDED Status: Active Protocol: Document 07/05/23 12:40 MB (Rec: 07/05/23 13:23 MB [id number]) Subjective Physical Therapy Visit Type Type Initial Evaluation Visit Start Time 12:40 Visit Stop Time 13:00 Total Visit Minutes 20 Number of SENIOR STAFF CONSULTANT Visits 0 Physical Therapy Visit Comments Patient Comments I get tired sitting up but I' ve been lying down for about half and hour and so I can sit back up a while. M4 PT-IP Mobility and Gait Start: 07/05/23 12:38 Freq: NEEDED Status: Active Protocol: Document 07/05/23 12:40 MB (Rec: 07/05/23 13:23 MB [id number]) PT-Bed Mobility Assessment Supine to Sit Supine to Sit Standby Assistance,Head of Bed Elevated,Bedrails PT-Transfer Assessment Sit to and From Stand Sit to and from Stand Standby Assistance,1 Person Assistance,Use of Upper Extremities Equipment Transfer Assistive Device Gait Belt,Front Wheeled Walker Gait Assessment Gait Gait Assistance Required: Standby Assistance,1 Person Assist Distance (Feet) 15 Assistive Devices Assistive Device Gait Belt,Front Wheeled Walker Gait Deviations General Gait Pattern Decreased Feet Clearance,Wide Based Gait Factors Limiting Gait Function Factors Limiting Gait Function Decreased Activity Tolerance, Poor Balance Comments Gait Comments Pt has wide SVITLANA and some imbalance with gait PT-Balance Assessment Sitting Balance and Reactions Static Sitting Balance Ability Good Dynamic Sitting Balance Ability Good Standing Balance and Reactions Static Standing Balance Ability Fair Dynamic Standing Balance Ability Fair Device Used RW M5 PT-IP Objective Assessments Start: 07/05/23 12:38 Freq: NEEDED Status: Active Protocol: Document 07/05/23 12:40 MB (Rec: 07/05/23 13:23 MB [id number]) Orientation Orientation/Cognition Level of Alertness Alert Orientation Name,Age,Birthday,Month,Date, Year,Day of Week,Place, Situation Language Function Ability No Deficits Noted Safety Awareness Understands Safety Issues Memory Description No Deficits Noted Gross Range of Motion Upper Extremity ROM Assessment Within Functional Limits Lower Extremity ROM Assessment Within Functional Limits Strength Upper Extremity Strength Assessment Within Functional Limits Lower Extremity Strength Assessment Within Functional Limits M7 PT-IP Assessment and Plan Start: 07/05/23 12:38 Freq: NEEDED Status: Active Protocol: Document 07/05/23 12:40 MB (Rec: 07/05/23 13:23 [id number]) PT Summary Assessment and Plan Potential Rehabilitation Potential Good Status of Condition at Evaluation Evolving Summary Impairments Balance,Bed Mobility,Transfers ,Gait,Activity Tolerance Progress Towards Goals Progressing Toward Goals Assessment Summary Pt is a 77 y/o female presenting with good oxygenation on RA with PT at 97-98% at rest and with mobility. If she is in the hospital, she will benefit from one more PT treatment to further assess complete I with bed flat, transfers, and increased gait distance with RW. Recommend con't HHPT at d/ c. Goals Bed Mobility Goal Independent Transfer Goal Independent,Front Wheeled Walker Gait Goal Independent,Front Wheel Walker Gait Distance 150 Days to Meet Goals 1 Frequency of Treatment Frequency Of Treatment Once a Day Treatment Plan Physical Therapy Treatment Plan Bed Mobility Training,Transfer Training,Gait Training, Therapeutic Exercise,Balance Retraining,Discharge Planning Weight Bearing Status Weight Bearing Status Weight Bear as Tolerated Recommendations To Nursing Amount of Assist Needed Standby Assistance Discharge Recommendations PT Discharge Recommendations Home with Assistance,Home Health Transportation Needs at Discharge Private Vehicle
[2023-07-05] MEDS: HEPARIN 5,000 UNIT/ML VIAL 7500 UNIT SUBCUT ×2 (15:15→21:46)
[2023-07-05 17:10] VITALS: BP 95/51; PULSE 83; RESP 18; TEMP 36.5; O2SAT 97
--- NOTE | 2023-07-05 18:25 | DI.ECHO.S_ITS ---
[facility]---------+ [facility] +---------+ : : [address] [place] [place] : : : : [id number] : : : : Phone: [phone]+ Echocardiogram Report + + :Name: SUMMER BANKS Study Date: 07/06/2023 Height: 67 in : :[facility] ReadingLocation: Weight: 283 lb : : Gender: Female BSA: 2.3 m2 : :: 1945 Age: 77 yrs BP: 111/54 mmHg: :Reason For Study: Dyspnea : : Performed By: Kaya Escamilla : :Referring: ARIAS BECK A : + + Interpretation Summary The left ventricle is normal in size. The left ventricular ejection fraction is normal. The ejection fraction is estimated to be 60-65%. No significant change in LVEF. The right ventricle is normal in size and function. No significant valvular pathology. The IVC is of normal diameter and collapses greater than 50% with a sniff. This suggests a low right atrial pressure of 3 mm Hg. Procedure: A two-dimensional transthoracic echocardiogram with color flow and Doppler was performed. Comparison is made with the echocardiogram of . The patient was in normal sinus rhythm during the exam. The heart rate ranged between 72-73 bpm during the study. Left Ventricle: The left ventricle is normal in size. There is normal left ventricular wall thickness. There is no thrombus. The ejection fraction is estimated to be 60-65%. The left ventricular ejection fraction is normal. There are no focal wall motion abnormalities. Diastolic parameters suggest a relaxation abnormality of the left ventricle, consistent with probable normal filling pressures. Right Ventricle: The right ventricle is normal in size and function. Atria: The left atrial size is normal. There has been no significant change since the previous study. Right atrial size is normal. The interatrial septum grossly appears intact with no obvious evidence for an atrial septal defect. Mitral Valve: There is mild mitral annular calcification. There is no mitral regurgitation. Aortic Valve: The aortic valve opens well. The aortic valve is trileaflet. There is no aortic valve stenosis. No aortic regurgitation is present. Tricuspid Valve: The tricuspid valve leaflets are thin and pliable. The tricuspid valve leaflets are thickened and/or calcified, but open well. The right ventricular systolic pressure is estimated to be at least 31 mmHg based on an estimated right atrial pressure of 3 mm Hg. There is trace tricuspid regurgitation. Pulmonic Valve: The pulmonic valve is not well visualized. Great Vessels: The aortic root is normal size. The ascending aorta could not be visualized. The aortic arch is normal in size. The IVC is of normal diameter and collapses greater than 50% with a sniff. This suggests a low right atrial pressure of 3 mm Hg. Pericardium/ Pleura There is no pericardial effusion. There is no pleural effusion. MMode/2D Measurements & Calculations LVIDd: 5.0 cm LVOT diam: 2.1 cm LVIDs: 2.8 cm Ao root diam: 3.2 cm FS: 43.9 % Ao Arch Diam (Prox Trans): 3.0 cm EPSS: 0.45 cm IVSd: 0.85 cm LVPWd: 0.80 cm LV . diameter/BSA (cm/m^2): 2.1 LV sys. diameter/BSA (cm/m^2): 1.2 LA A2 area: 21.3 cm2 RA long axis: 5.0 cm LA A4 area: 23.4 cm2 RA area: 10.9 cm2 LA length (vol): 5.8 cm RA vol: 19.9 ml LA vol: 72.2 ml RA : 8.5 ml/m2 LA vol index: 30.8 ml/m2 IVC diam: 1.8 cm RVD1 (basal): 3.5 cm TAPSE: 1.8 cm Doppler Measurements & Calculations Ao V2 max: 175.4 cm/sec LVOT Max Cirilo: 142.8 cm/sec Ao V2 mean: 116.4 cm/sec LV V1 max P.2 mmHg Ao max P.3 mmHg LV V1 VTI: 27.0 cm Ao mean P.4 mmHg DONG(I,D): 2.7 cm2 Ao V2 VTI: 34.2 cm DONG(V,D): 2.7 cm2 sev ratio: 0.79 DONG indexed to BSA (cm^2/m^2): 1.1 MV E max cirilo: 90.7 cm/sec TR max cirilo: 263.7 cm/sec MV A max cirilo: 101.8 cm/sec TR max P.8 mmHg MV E/A: 0.89 PA pr(Accel): -15.2 mmHg Med Peak E' Cirilo: 8.7 cm/sec E/E' med: 10.4 MV dec time: 0.20 sec SVLVOT): 91.0 ml Reading Physician:01:09 PM
[2023-07-05] MEDS: QUETIAPINE 25 MG TABLET PO (20:33)
[2023-07-05] MEDS: INSULIN GLARGINE 100 UNIT/ML 3ML PEN 34 UNIT SUBCUT (20:34)
[2023-07-05] MEDS: cefTRIAXone 1,000 MG in SODIUM CHLORIDE 0.9% 100 ML 200 MG IV (21:44)
[2023-07-06] VITALS: BP 126/61; PULSE 79; RESP 16; TEMP 37.1; O2SAT 92
[2023-07-06 05:46] LABS: Add Manual Diff / Slide Review NO; Basophils Absolute Auto 0 /uL (0-100); Basophils Percent Auto 0.4 % (0-2); Eosinophils Absolute Auto 200 /uL (0-450); Eosinophils Percent Auto 2.5 % (2-4); Hematocrit 33.3 % (36-46); Hemoglobin 11.6 g/dL (12.0-16.0); Lymphocytes Absolute Auto 3600 /uL (1100-4500); Lymphocytes Percent Auto 41.8 % (25-40); Mean Corpuscular HGB Conc 34.8 % (30-36); Mean Corpuscular Hemoglobin 30.9 PG (26-34); Mean Corpuscular Volume 88.7 fL (80-100); Monocytes Absolute Auto 600 /uL (0-900); Monocytes Percent Auto 6.9 % (3-14); Neutrophils Absolute Auto 4200 /uL (1500-7000); Neutrophils Percent Auto 48.4 % (50-75); Platelet Count 188 X10^3/uL (150-400); Red Blood Cell Count 3.76 X10^6/uL (4.0-5.2); Red Cell Distribution Width 14.4 % (11.6-14.8); White Blood Cell Count 8.7 X10^3/uL (4.5-11.0)
[2023-07-06 05:53] LABS: BUN Creatinine Ratio 20.6 (6-22); Blood Urea Nitrogen 21 mg/dL (7-17); Carbon Dioxide 33 mmol/L (22-32); Chloride 100 mmol/L (98-107); Estimated Glomerular Filt Rate 57 mL/min (>60); Glucose 171 mg/dL (80-110); HEMOLYSIS < 15 (0-50); Potassium 3.9 mmol/L (3.4-5.1); Sodium 136 mmol/L (137-145)
[2023-07-06] MEDS: HEPARIN 5,000 UNIT/ML VIAL 7500 UNIT SUBCUT ×2 (06:26→15:27)
[2023-07-06] MEDS: PANTOPRAZOLE DR 20 MG TABLET 40 MG PO (06:26)
[2023-07-06 06:39] VITALS: BP 125/54; PULSE 71; RESP 18; TEMP 36.9; O2SAT 95
[2023-07-06 07:50] VITALS: BP 111/54; PULSE 78; RESP 16; TEMP 37.1; O2SAT 95
[2023-07-06] MEDS: INSULIN LISPRO 100 UNIT/ML 3ML VIAL SUBCUT ×3 (08:08→17:32)
[2023-07-06] MEDS: DULOXETINE 20 MG CAPSULE PO (08:14)
[2023-07-06] MEDS: ATORVASTATIN 20 MG TABLET 80 MG PO (08:14)
[2023-07-06] MEDS: SODIUM CHLORIDE 0.9% 1,000 ML 100 ML IV (08:15)
--- NOTE | 2023-07-06 11:10 | PT.IPTN ---
Physical Therapy Treatment Note M2 PT-IP Current Condition Start: 07/05/23 12:38 Freq: NEEDED Status: Active Protocol: Document 07/05/23 12:40 MB (Rec: 07/05/23 13:23 MB [id number]) Physical Therapy Current Condition Current Condition Evaluation Date 07/05/23 Treatment Diagnosis SOB/infection M3 PT-IP Subjective Start: 07/05/23 12:38 Freq: NEEDED Status: Active Protocol: Document 07/06/23 11:10 AB (Rec: 07/06/23 11:50 AB [id number]) Subjective Physical Therapy Visit Type Type Treatment Note Visit Start Time 11:10 Visit Stop Time 11:25 Total Visit Minutes 15 Number of ELECTRONIC TECHNOLOGIST Visits 0 Physical Therapy Visit Comments Patient Comments pt is agreeable to do PT M4 PT-IP Mobility and Gait Start: 07/05/23 12:38 Freq: NEEDED Status: Active Protocol: Document 07/06/23 11:10 AB (Rec: 07/06/23 11:50 AB [id number]) PT-Bed Mobility Assessment Sit to Supine Sit to Supine Standby Assistance PT-Transfer Assessment Sit to and From Stand Sit to and from Stand Standby Assistance,Use of Upper Extremities Equipment Transfer Assistive Device Gait Belt,Front Wheeled Walker Orthotic/Prosthetic Devices or Brace: No Transfers Transfer Destination Bed Transfer Technique ambulated Transfer Ability Level of Assist Standby Assistance,Contact Guard Assistance,1 Person Assistance,Use of Upper Extremities Comments Mobility Comments pt sitting on the chair and agreeable to do PT. O2 sat: 95-96% BP: 114/55. pt completed sit to stand SBA and ambulated using FWW initially SBA but midway requiring CGA for safety due to c/o feeling tired. pt with 2 standing rest breaks and presents with increase unsteadiness and slower gait midway with walking. equipment technician requested pt to go back to bed after ambulation for echo procedure. pt completed sit to supine SBA. positioned pt in bed. Left pt with pyrotechnics press tender. Gait Assessment Gait Gait Assistance Required: Standby Assistance,Contact Guard Assist Distance (Feet) 60 Able to Maintain Weight Bearing Status Yes During Gait Assistive Devices Assistive Device Gait Belt,Front Wheeled Walker Orthotic/Prosthetic Devices or Brace: No Gait Deviations General Gait Pattern Decreased Stride Length, Decreased Feet Clearance Factors Limiting Gait Function Factors Limiting Gait Function Decreased Activity Tolerance, Decreased Strength,Poor Balance,Poor Safety Awareness M5 PT-IP Objective Assessments Start: 07/05/23 12:38 Freq: NEEDED Status: Active Protocol: Document 07/05/23 12:40 MB (Rec: 07/05/23 13:23 MB [id number]) Orientation Orientation/Cognition Level of Alertness Alert Orientation Name,Age,Birthday,Month,Date, Year,Day of Week,Place, Situation Language Function Ability No Deficits Noted Safety Awareness Understands Safety Issues Memory Description No Deficits Noted Gross Range of Motion Upper Extremity ROM Assessment Within Functional Limits Lower Extremity ROM Assessment Within Functional Limits Strength Upper Extremity Strength Assessment Within Functional Limits Lower Extremity Strength Assessment Within Functional Limits M6 PT-IP Treatment Start: 07/05/23 12:38 Freq: NEEDED Status: Active Protocol: Document 07/06/23 11:10 AB (Rec: 07/06/23 11:50 AB [email or web address]) Physical Therapy Treatment Education Education Provided Safety M7 PT-IP Assessment and Plan Start: 07/05/23 12:38 Freq: NEEDED Status: Active Protocol: Document 07/06/23 11:10 AB (Rec: 07/06/23 11:50 AB [id number]) PT Summary Assessment and Plan Potential Rehabilitation Potential Fair Summary Impairments Pain,ROM,Strength,Balance, Coordination,Sensation,Tone, Cognition,Bed Mobility, Transfers,Gait,Activity Tolerance Progress Towards Goals Slow Progress due to Activity Tolerance Assessment Summary pt progressing slowly with mobility requiring SBA to CGA with ambulation but presents with decrease activity tolerance affecting mobility independence. pt will need assistance at home and services. Goals Bed Mobility Goal Independent Transfer Goal Independent,Front Wheeled Walker Gait Goal Independent,Front Wheel Walker Gait Distance 150 Days to Meet Goals 1 Frequency of Treatment Frequency Of Treatment Once a Day Treatment Plan Physical Therapy Treatment Plan Bed Mobility Training,Transfer Training,Gait Training, Therapeutic Exercise,Balance Retraining,Discharge Planning Recommendations To Nursing Amount of Assist Needed 1 Person Assist Discharge Recommendations PT Discharge Recommendations Home with Assistance,Home Health Transportation Needs at Discharge Private Vehicle
[2023-07-06] MEDS: ACETAMINOPHEN 325 MG TABLET 650 MG PO (12:38)
[2023-07-06 13:00] VITALS: BP 122/63; PULSE 75; RESP 18; TEMP 36.6; O2SAT 94
--- NOTE | 2023-07-06 13:11 | CM.DPC ---
DCP Cont. Reviewed EMR and team rounds for status updates. Pt is medically stable for d/c today. Met with pt at bedside and discussed plan to d/c home today, no resources identified for home therapies or OP resources. Dtr will pick her up and transport her home later this afternoon when she gets off of work. No further DCP needs identified at this time.
--- NOTE | 2023-07-06 19:00 | PC.NURSE ---
Patient is A&OX4, VSS, afebrile on RA. She denies pain other than generalized aches she reports is well controlled with Tylenol. She is incontinent of urine and uses purewick / brief. She is able to ambulate with FWW and is agreeable to sit up in the chair today. She is medically cleared for discharge home today with her daughter, and Home Health. Her daughter is working today and will get to the hospital between 5:30 pm and 6:30 pm. Patient verbalizes understanding about medications and discusses them with pharmacist at bedside this afternoon.She acknowledges plan to follow up with pulmonology regarding SOB, and states she has already made an appointment to see her PCP this coming week.
--- NOTE | 2023-07-08 19:47 | PM.DS.1 ---
History of Present Illness History of Present Illness Chief complaint: 02 stats 90 /sob reffered/ Narrative: Per admitting physician: CC: Shortness of breath and generalized weakness + chronic nausea HPI This is a 77-year-old female with a history of fibromyalgia, depression, hypertension, recurrent UTIs, diabetes mellitus type 2, and other problems profiled in the EMR. Is is severely stressed since she was kicked out of her daughter's apartment with her demented . Her is now in an adult family home. She now stays at [facility] with the help of local subsidies. In May she had a URI and has since developed chronic nausea. This has been an ongoiong problem to date She was admitted to hospital in early June with a urinary tract infection. She had issues with nausea and vomiting so gabapentin and Ozempic were discontinued on discharge. Her Lantus was also reduced from 50 units to 20 units daily. She is now on 34 units daily. She was evaluated in the emergency room 06/29 for ongoing nausea, and dry heaves. She was given IV fluids and discharge. Urinalysis subsequently returned positive with greater than 100,000 and E. coli resistant to Cipro, cefazolin, and amoxicillin. She has been on Nitrofurnantoin for the past week. She followed up with her PCP today compalining of worsening dyspnea with persistent nausea. She manage to drink but could not eat. PCP directed her to the ER. She presents to the emergency room with ongoing nausea, dry heaves, generalized weakness, and new onset shortness of breath. She denied fever, chills, or sweats. She also denied any coughing, phlegm, or sputum production. In the emergency room she was hemodynamically stable without fever, tachycardia, hypoxemia, or dyspnea. Temperature was low at 96.8. Lungs were clear. Abdomen was benign. Repeat urinalysis pending Labs are significant for WBC 15.4, 10,000 neutrophils, D-dimer 2142, sodium 134, chloride 97, BUN 33, creatinine 1.77 previously [id number] with normal LFTs COVID-[address] pulmonary angiogram had no significant interstitial markings, infiltrate, or pulmonary embolism. EKG had normal sinus rhythm with no acute ischemic changes. She was medicated with IV fluids, Rocephin, and antiemetics. She will be admitted for further evaluation and treatment. Discharge Providers Provider Date of admission: 07/04/23 23:04 Discharge Date: 07/06/23 Primary care physician: Monie Santamaria RN Consults: 07/04/23 23:44 Consult to Pastoral Services Routine Comment: wants a visit 07/05/23 10:36 Consult to Physical Therapy Evaluate & Treat Comment: Physician Instructions: Evaluate and Treat 07/06/23 12:53 Consult to Home Health Routine Comment: PT Reason For Exam: Resume Home Health Discharge provider: Padilla Acevedo MD Summary Hospital Course Discharge Diagnosis: 1. UTI 2. KENN 3. Shortness of breath 4. Type 2 Diabetes 5. Hypertension Hospital Course: Ms. Hercules was admitted with shortness of breath, KENN, UTI. She was treated with fluids and antibiotics. Her shortness of breath resolved. She had ECHO with no acute process. CTA chest with no PE and no acute process. She was discharged with antibiotics for her urinary infection. Exam Vital Signs (past 8 hours): Oxygen Delivery Method Nasal Cannula Oxygen Flow Rate 0 Narrative Exam Narrative: GEN: no acute distress CVS: regular rate, rhythm, no murmurs RESP: Clear to auscultation bilaterally GIT: Soft, nontender EXTR: trace edema Objective Labs 07/06/23 05:22 07/06/23 05:22 [facility] Medical History Secondhand smoke exposure Lichen sclerosus et atrophicus Microscopic hematuria Urge incontinence Hx of migraine headaches History of depression History of chronic urinary tract infection History of arthritis Peripheral neuropathy Depression Hyperlipidemia Fibromyalgia Hypertension Lower leg edema Diabetes Surgical History Hx of abdominal hysterectomy Hx of breast biopsy Hx of total knee replacement Hx of cholecystectomy Hx of appendectomy Family History Mother Cancer CVA (cerebral vascular accident) Hyperlipidemia Hypertension Father Hypertension Hyperlipidemia CAD (coronary artery disease) Sister Hyperlipidemia Hypertension Diabetes mellitus Multiple kidney stones Migraines Brother Hyperlipidemia Hypertension Migraines Eczema Social History marital status: number of children: 4 household members: none lives independently: Yes Smoking Status: Never smoker alcohol intake: current caffeine: Yes Type(s) of exercise: walking frequency: 3-4 times per week duration: 15-30 minutes/day Discharge Plan Discharge Plan Patient Disposition: Home Provider Discharge Comment: Ms. Hercules came in to the hospital with nausea and shortness of breath. She had a UTI and improved with antibiotics. She should follow up with her PCP within one week. She should discuss with her PCP about possibly having a pulmonology referral for her shortness of breath. Discharge orders & Medications Prescriptions: New scopolamine base [Transderm-Scop] 1 mg over 3 days Patch 3 Day 1 patch topical Q72H Qty: 4 0RF cefpodoxime 100 mg tablet 100 mg PO BID Qty: 6 0RF Rx Instructions: must administer with a meal/food Continued duloxetine 20 mg capsule,delayed release(DR/EC) 20 mg PO DAILY quetiapine 25 mg tablet 25 mg PO BEDTIME propranolol 20 mg tablet 20 mg PO BEDTIME lisinopril 40 mg tablet 40 mg PO DAILY rosuvastatin 40 mg tablet 40 mg PO DAILY pantoprazole 20 mg Tablet,Delayed Release (Dr/Ec) 40 mg PO 0600 Qty: 30 0RF ondansetron 4 mg tablet,disintegrating 4 mg PO Q6H PRN (Reason: nausea and vomiting) Qty: 30 0RF insulin glargine [Lantus Solostar U-100 Insulin] 100 unit/mL (3 mL) insulin pen 34 unit SUBCUT 2100 potassium chloride 10 mEq tablet extended release 10 meq PO Q OTHER DAY nitrofurantoin macrocrystal 100 mg capsule 100 mg PO BID Discontinued metoclopramide HCl 5 mg Tablet 10 mg PO ACHS PRN (Reason: nausea and vomiting) Qty: 20 0RF Follow up/Referrals: Monie Santamaria RN [Primary Care Provider] - Diet/Activity/Treatments Diet: Carb-consistent/Diabetic Visit Report/Discharge Packet Instructions: Acute Kidney Injury, DI for Urinary Tract Infection (UTI), Scopolamine Transdermal Patch Stand Alone Forms: Patient Portal/API, Stroke Signs & Symptoms Discharge Data Primary Care Provider: Monie Santamaria Attending Provider: Kyaw Hines Admit Date/Time: 07/04/23 23:04
== END 2023-07-06 18:10 | disposition home or self-care (01) ==
LOC: ED 22:17 → AC 23:05
PROVIDERS: Student in an Organized Health Care Education/Training Program; Admitting Provider Specialist; Emergency Provider Family Medicine Addiction Medicine; PCP Nurse Practitioner Family; Referring Provider Family Medicine Addiction Medicine; Visit Provider Specialist
DX: N39.0 Urinary tract infection, site not specified (principal); B96.20 Unspecified Escherichia coli [E. coli] as the cause of diseases classified elsewhere; R06.02 Shortness of breath; R11.2 Nausea with vomiting, unspecified; R53.1 Weakness; E86.0 Dehydration; N17.9 Acute kidney failure, unspecified; I10 Essential (primary) hypertension; Z79.4 Long term (current) use of insulin; M79.7 Fibromyalgia; E11.42 Type 2 diabetes mellitus with diabetic polyneuropathy; F32.A Depression, unspecified; Z11.52 Encounter for screening for COVID-19
CPT/HCPCS: 36415; 71275; 80048; 80053; 82962; 83036; 83605; 83735; 84484; 85025; 85379; 87040; 87502; 87635; 93005; 93306; 93970; 96361; 96365; 96366; 96372; 96375; 96376; 97116; 97161; 99284; 99285; C9803; G0378; J0696; J1644; J1815; J2405; Q9967

== ENCOUNTER → 2023-08-09 17:31 | Outpatient (CLI) | payer OTHER, MEDICAID, SELFPAY ==
[2023-07-04 23:36] VITALS: BMI 44.1
--- NOTE | 2023-08-09 | DI.US.S_ITS ---
PROCEDURE: US PERIPH VENOUS LOW EXTREM RT INDICATIONS: RIGHT LOWER EXTREMITY EDEMA AND PAIN TECHNIQUE: Real-time imaging, as well as color and pulse Doppler interrogation, were performed of the lower extremity deep veins from the inguinal ligament to the popliteal fossa, with documentation of the visualized calf veins. COMPARISON: None. FINDINGS: The common femoral, femoral, popliteal, and the visualized calf veins are normally compressible, and free of intraluminal thrombus. Color and pulse Doppler demonstrate normal phasic intraluminal flow. There is normal augmentation response to distal compression maneuver. IMPRESSION: No findings of lower extremity deep venous thrombosis. Dictated by: Ryan Garcia M.D. on 08/09/2023 at 18:18 Approved by: Ryan Garcia M.D. on 08/09/2023 at 18:19
== END ==
PROVIDERS: PCP Nurse Practitioner Family; Referring Provider Nurse Practitioner Family; Visit Provider Nurse Practitioner Family
DX: M79.651 Pain in right thigh (principal); R06.09 Other forms of dyspnea
CPT/HCPCS: 93971; 99214

== ENCOUNTER 2023-09-27 16:10 | Inpatient (IN) | payer OTHER, SELFPAY ==
[2023-07-04 23:36] VITALS: BMI 44.1
[2023-09-27] VITALS (16 sets, daily range): BP systolic 98–127; BP diastolic 40–68; PULSE 62–89; RESP 12–20; TEMP 36.1–36.8; O2SAT 91–97; BMI 41.6
--- NOTE | 2023-09-27 16:16 | DI.RAD.S_ITS ---
PROCEDURE: XR CHEST 1V INDICATIONS: Shortness of breath TECHNIQUE: One view of the chest was acquired. COMPARISON: [facility], CR, XR CHEST 1V, 06/14/2023, 15:38. FINDINGS: Surgical changes and devices: None. Lungs and pleura: Lungs are clear. No pleural effusions or pneumothorax. Mediastinum: Mediastinal contours appear normal. Heart size is normal. Bones and chest wall: No suspicious bony lesions. Overlying soft tissues appear unremarkable. IMPRESSION: No acute cardiopulmonary abnormality is seen. Dictated by: Gracy Yeung MD, PhD on 09/27/2023 at 17:06 Approved by: Gracy Yeung MD, PhD on 09/27/2023 at 17:07
[2023-09-27 16:48] LABS: Add Manual Diff / Slide Review NO; Basophils Absolute Auto 200 /uL (0-100); Eosinophils Absolute Auto 300 /uL (0-450); Eosinophils Percent Auto 1.7 % (2-4); Hematocrit 39.6 % (36-46); Hemoglobin 13.4 g/dL (12.0-16.0); Lymphocytes Absolute Auto 4700 /uL (1100-4500); Lymphocytes Percent Auto 23.9 % (25-40); Mean Corpuscular HGB Conc 33.9 % (30-36); Mean Corpuscular Hemoglobin 30.8 PG (26-34); Mean Corpuscular Volume 90.9 fL (80-100); Monocytes Absolute Auto 1400 /uL (0-900); Monocytes Percent Auto 7.2 % (3-14); Neutrophils Absolute Auto 13000 /uL (1500-7000); Neutrophils Percent Auto 66.2 % (50-75); Platelet Count 353 X10^3/uL (150-400); Red Blood Cell Count 4.36 X10^6/uL (4.0-5.2); Red Cell Distribution Width 13.5 % (11.6-14.8); White Blood Cell Count 19.7 X10^3/uL (4.5-11.0)
[2023-09-27 16:54] LABS: Lactate (Lactic Acid) 2.3 mmol/L (0.7-2.1)
[2023-09-27 16:56] LABS: Alanine Aminotransferase 20 IU/L (<35); Albumin 4.1 g/dL (3.5-5.0); Albumin Globulin Ratio 1.2 (1.0-2.8); Alkaline Phosphatase 87 U/L (38-126); Aspartate Aminotransferase 19 IU/L (14-36); BUN Creatinine Ratio 22.9 (6-22); Blood Urea Nitrogen 61 mg/dL (7-17); Calcium 9.2 mg/dL (8.4-10.2); Carbon Dioxide 26 mmol/L (22-32); Chloride 95 mmol/L (98-107); Estimated Glomerular Filt Rate 18 mL/min (>60); Globulin 3.4 g/dL (1.7-4.1); Glucose 210 mg/dL (80-110); HEMOLYSIS < 15 (0-50); Potassium 4.2 mmol/L (3.4-5.1); Sodium 135 mmol/L (137-145); Total Protein 7.5 g/dL (6.3-8.2)
[2023-09-27 17:06] LABS: NT-proBNP (BNP-Adult 18+) 86 pg/mL (<450); Troponin I < 0.012 ng/mL (0.01-0.034)
--- NOTE | 2023-09-27 17:17 | CM.SWNOTE ---
ED GALLEY COOK Note GALLEY COOK is asked by RN to meet with patient's community case manager in the lobby. manager camp is Nola Sylvester (Ph. # [phone]) with [facility]. Nola reports that she took patient to PCP today and PCP recommended patient be seen in the ED. Nola states that patient resides at [facility] and just moved in last month. Nola reports that patient will need a ride upon d/c and Nola offers to be a ride if needed but states that patient can afford a taxi as well to return to [facility]. GALLEY COOK reviews this with ED provider and ED provider states that patient will likely be admitted to acute care. GALLEY COOK to contact [facility] regarding patient's disposition. KEKE RobertsonSW
[2023-09-27] MEDS: SODIUM CHLORIDE 0.9% 1206.56 ML IV (17:22)
--- NOTE | 2023-09-27 17:22 | ED.SOB ---
HPI - SOB/Dyspnea General Chief Complaint: Shortness of Breath/Dyspnea Stated Complaint: weakness Time Seen by Provider: 09/27/23 17:13 Source: patient Mode of arrival: Wheelchair Limitations: no limitations History of Present Illness HPI Narrative: Patient is 77-year-old female history of insulin-dependent diabetes, fibromyalgia depression hypertension recurrent UTIs presenting today with increased shortness of breath. She was seen evaluated week and a half ago diagnosed with parainfluenza virus. She was given an nebulizer which he says does help she is due every 4 hours. She has decreased appetite but continues to drink. She overall feels poorly. No abdominal pain nausea or vomiting. She is currently afebrile blood pressure is soft. Related Data Home Medications Medication Instructions Recorded Confirmed duloxetine 20 mg capsule,delayed 20 mg PO DAILY 06/15/23 07/05/23 release lisinopril 40 mg tablet 40 mg PO DAILY 06/15/23 07/05/23 propranolol 20 mg tablet 20 mg PO BEDTIME 06/15/23 07/05/23 quetiapine 25 mg tablet 25 mg PO BEDTIME 06/15/23 07/05/23 rosuvastatin 40 mg tablet 40 mg PO DAILY 06/15/23 07/05/23 insulin glargine 100 unit/mL (3 34 unit SUBCUT 2100 07/05/23 07/05/23 mL) subcutaneous pen (Lantus Solostar U-100 Insulin) nitrofurantoin macrocrystal 100 mg 100 mg PO BID 07/05/23 08/09/23 capsule potassium chloride 10 mEq 10 meq PO Q OTHER DAY 07/05/23 07/05/23 tablet,extended release Previous Rx's Medication Instructions Recorded ondansetron 4 mg disintegrating 4 mg PO Q6H PRN nausea and 06/16/23 tablet vomiting #30 tabs pantoprazole 20 mg tablet,delayed 40 mg (2 x 20 mg) PO 0600 #30 tabs 06/16/23 release cefpodoxime 100 mg tablet 100 mg PO BID #6 tabs 07/06/23 scopolamine base 1 mg over 3 days 1 patch topical Q72H #4 ea 07/06/23 transdermal patch (Transderm-Scop) Allergies Allergy/AdvReac Type Severity Reaction Status Date / Time Penicillins Allergy Severe Anaphylaxis Verified 08/09/23 17:09 morphine AdvReac Nightmare Verified 08/09/23 17:09 Patient History Medical History Secondhand smoke exposure Lichen sclerosus et atrophicus Microscopic hematuria Urge incontinence Hx of migraine headaches History of depression History of chronic urinary tract infection History of arthritis Peripheral neuropathy Depression Hyperlipidemia Fibromyalgia Hypertension Lower leg edema Diabetes Surgical History Hx of abdominal hysterectomy Hx of breast biopsy Hx of total knee replacement Hx of cholecystectomy Hx of appendectomy Family History Mother Cancer CVA (cerebral vascular accident) Hyperlipidemia Hypertension Father Hypertension Hyperlipidemia CAD (coronary artery disease) Sister Hyperlipidemia Hypertension Diabetes mellitus Multiple kidney stones Migraines Brother Hyperlipidemia Hypertension Migraines Eczema Social History marital status: number of children: 4 household members: none lives independently: Yes Smoking Status: Never smoker alcohol intake: current caffeine: Yes Type(s) of exercise: walking frequency: 3-4 times per week duration: 15-30 minutes/day Smoking Status: Never smoker alcohol intake frequency: holidays/special occasions only Substance Use Type: does not use Exam Initial Vital Signs Initial Vital Signs: Vital Signs Temperature 98.3 F 09/27/23 16:10 Pulse Rate 89 09/27/23 16:10 Respiratory Rate 20 09/27/23 16:10 Blood Pressure 105/59 L 09/27/23 16:10 Pulse Oximetry 97 09/27/23 16:10 Oxygen Delivery Method Room Air 09/27/23 16:10 GENERAL: Alert 77-year-old female appears to not feel well HEENT: Head atraumatic,EOMI, pupils reactive, face symmetric, managing her own secretions no evidence of airway swelling no uvula deviation CARDIOVASCULAR: Regular rate and rhythm without murmurs, rubs or gallops. RESPIRATORY: Coughing with deep breaths mild expiratory wheezing no significant rales or rhonchi voice does sound slightly hoarse ABDOMEN: Soft, nontender. Normoactive bowel sounds all 4 quadrants. No guarding or rebound. EXTREMITIES: Normal range of motion, no clubbing or edema. Neurovascularly intact NEUROLOGICAL: Alert and oriented x4.Normal gait and speech. SKIN: Warm, dry, no laceration, no petechiae, no rashes or lesions. Course Orders Ordered: ED Orders 09/27/23 16:16 XR chest 1V Stat EKG-12 Lead Stat Measure peak expiratory flow ONCE RT Consult Eval and Treat NOW 09/27/23 16:34 Complete Blood Count AUTO DIFF Stat Comprehensive Metabolic Panel Stat Lactate (Lactic Acid) Stat NT-proBNP (BNP-Adult 18+) Stat Prothrombin Time INR Stat Troponin I Stat 09/27/23 17:23 Respiratory Panel (Film Array) Stat 09/27/23 18:04 Blood Culture Stat Acetaminophen (Acetaminophen 325 Mg Tablet) 650 mg PO Q6H PRN PRN Reason: Fever/Mild Pain (1-3) Albuterol (Albuterol 2.5 Mg/3 Ml Neb (Adult)) 2.5 mg INH [id number] PRN PRN Reason: Shortness Of Breath Or Wheezing Heparin Sodium (Porcine) (Heparin 5,000 Unit/Ml Vial) 5,000 unit SUBCUT BID YVONNE Sodium Chloride (Normal Saline 0.9%) 3,619.68 mls @ 1,206.56 mls/hr 30 ml/kg infuse over 3 hr (3619.68 ml) IV NOW ONE Stop: 09/27/23 20:12 Last Admin: 09/27/23 17:22 Dose: 1,206.56 mls/hr Documented By: FL Sodium Chloride (Normal Saline 0.9%) 1,000 mls @ 100 mls/hr IV CONT YVONNE Dextrose (D10w) 100 mls @ 1,200 mls/hr IV PRN PRN PRN Reason: Hypoglycemia Cefepime HCl 2 gm/ Sodium (Chloride) 100 mls @ 200 mls/hr IV Q24H YVONNE Insulin Human Lispro (Insulin Lispro 100 Unit/Ml 3ml Vial) 0 unit SUBCUT ACHS YVONNE; Protocol Naloxone HCl (Naloxone 0.4 Mg/Ml Vial) 0.2 mg IV Q2MIN PRN PRN Reason: Opiate Reversal Ondansetron HCl (Ondansetron 4 Mg/2 Ml Inj) 4 mg IV Q8HR PRN PRN Reason: Nausea And Vomiting Prednisone (Prednisone 20 Mg Tablet) 40 mg PO DAILY YVONNE Discontinued Medications Albuterol/Ipratropium (Albuterol/Ipratropium 3 Ml Ampul) 3 ml INH NOW ONE Stop: 09/27/23 17:33 Last Admin: 09/27/23 17:43 Dose: 3 ml Documented By: SAT Cefepime HCl 2 gm/ Sodium (Chloride) 100 mls @ 200 mls/hr IV NOW ONE Stop: 09/27/23 17:30 Last Admin: 09/27/23 18:05 Dose: 200 mls/hr Documented By: FLH Cefepime HCl 2 gm/ Sodium (Chloride) 100 mls @ 200 mls/hr IV Q12H YVONNE Vital Signs Vital signs: Vital Signs - 8 hr 09/27/23 16:10 09/27/23 17:09 09/27/23 17:11 Temperature 98.3 F Pulse Rate 89 76 Respiratory Rate 20 Blood Pressure 105/59 L 98/55 L Pulse Oximetry 97 95 Oxygen Delivery Method Room Air 09/27/23 17:11 09/27/23 17:30 09/27/23 17:34 Temperature Pulse Rate 76 72 65 Respiratory Rate Blood Pressure Pulse Oximetry 94 94 95 Oxygen Delivery Method 09/27/23 17:34 09/27/23 17:35 09/27/23 17:36 Temperature Pulse Rate Respiratory Rate Blood Pressure 102/56 L 102/56 L 107/58 L Pulse Oximetry Oxygen Delivery Method 09/27/23 17:36 09/27/23 17:38 09/27/23 17:46 Temperature Pulse Rate 72 71 71 Respiratory Rate 12 20 Blood Pressure 107/58 L Pulse Oximetry 95 95 95 Oxygen Delivery Method Room Air Room Air 09/27/23 17:46 09/27/23 17:46 09/27/23 18:00 Temperature Pulse Rate 72 71 Respiratory Rate Blood Pressure 101/52 L Pulse Oximetry 97 96 Oxygen Delivery Method 09/27/23 18:04 09/27/23 18:04 09/27/23 18:05 Temperature Pulse Rate 73 72 Respiratory Rate Blood Pressure 115/59 L 115/59 L Pulse Oximetry 97 97 Oxygen Delivery Method Room Air 09/27/23 18:15 09/27/23 18:15 Temperature Pulse Rate 73 Respiratory Rate Blood Pressure 119/68 Pulse Oximetry 97 Oxygen Delivery Method MDM - SOB/Dyspnea Lab Data 09/27/23 16:34 09/27/23 16:34 Labs: Lab Results 09/27/23 09/27/23 Range/Units 16:34 17:23 WBC 19.7 H (4.5-11.0) X10^3/uL RBC 4.36 (4.0-5.2) X10^6/uL Hgb 13.4 (12.0-16.0) g/dL Hct 39.6 (36-46) % MCV 90.9 (80-100) fL MCH 30.8 (26-34) PG MCHC 33.9 (30-36) % RDW 13.5 (11.6-14.8) % Plt Count 353 (150-400) X10^3/uL Neut % (Auto) 66.2 (50-75) % Lymph % (Auto) 23.9 L (25-40) % Burke % (Auto) 7.2 (3-14) % Eos % (Auto) 1.7 L (2-4) % Baso % (Auto) 1.0 (0-2) % Neut # (Auto) 56991 H (7838-9383) /uL Lymph # (Auto) 4700 H (1276-5542) /uL Burke # (Auto) 1400 H (0-900) /uL Eos # (Auto) 300 (0-450) /uL Baso # (Auto) 200 H (0-100) /uL PT 12.0 (9.4-12.5) SECONDS INR 1.0 (0.9-1.3) Sodium 135 L (137-145) mmol/L Potassium 4.2 (3.4-5.1) mmol/L Chloride 95 L (98-107) mmol/L Carbon Dioxide 26 (22-32) mmol/L BUN 61 H (7-17) mg/dL Creatinine 2.66 H (0.52-1.04) mg/dL Estimated GFR 18 L (>60) mL/min BUN/Creatinine Ratio 22.9 H (6-22) Glucose 210 H (80-110) mg/dL Lactate 2.3 H (0.7-2.1) mmol/L Calcium 9.2 (8.4-10.2) mg/dL Total Bilirubin 1.0 (0.2-1.3) mg/dL AST 19 (14-36) IU/L ALT 20 (<35) IU/L Alkaline Phosphatase 87 (38-126) U/L Troponin I < 0.012 (0.01-0.034) ng/mL NT-Pro-B Natriuret Pep 86 (<450) pg/mL Total Protein 7.5 (6.3-8.2) g/dL Albumin 4.1 (3.5-5.0) g/dL Globulin 3.4 (1.7-4.1) g/dL Albumin/Globulin Ratio 1.2 (1.0-2.8) Chlamy pneumoniae PCR Not detected (Not Detect) Adenovirus (PCR) Not detected (Not Detect) B.parapertussis DNA PCR Not detected (Not Detecte) Coronavirus OC43 (PCR) Not detected (Not Detect) Coronavirus HKU1 (PCR) Not detected (Not Detect) Coronavirus 229E (PCR) Not detected (Not Detect) SARS-CoV-2 (PCR) Not detected (Not Detecte) Coronavirus NL63 (PCR) Not detected (Not Detect) Human Metapneumovir PCR Not detected (Not Detect) Influenza Type A (PCR) Not detected (Not Detect) Influenza Type B (PCR) Not detected (Not Detect) M. pneumoniae (PCR) Not detected (Not Detect) Parainfluenza 1 (PCR) Not detected (Not Detect) Parainfluenza 2 (PCR) Not detected (Not Detect) Parainfluenza 3 (PCR) Detected H (Not Detect) Parainfluenza 4 (PCR) Not detected (Not Detect) RSV (PCR) Not detected (Not Detect) Entero/Rhino (PCR) Not detected (Not Detect) Imaging Data Chest x-ray: Radiologist's Impression: PROCEDURE: XR CHEST 1V INDICATIONS: Shortness of breath TECHNIQUE: One view of the chest was acquired. COMPARISON: [facility], XR CHEST 1V, 06/14/2023, 15:38. FINDINGS: Surgical changes and devices: None. Lungs and pleura: Lungs are clear. No pleural effusions or pneumothorax. Mediastinum: Mediastinal contours appear normal. Heart size is normal. Bones and chest wall: No suspicious bony lesions. Overlying soft tissues appear unremarkable. IMPRESSION: No acute cardiopulmonary abnormality is seen. Dictated by: Gracy Yeung MD, PhD on 09/27/2023 at 17:06 [facility] Narrative Medical decision making narrative: Patient 77-year-old female with history of insulin-dependent diabetes presenting today with increasing weakness. She has been sick for about a week and a half progressively getting worse. She appears to not feel well. Blood pressure is soft initially with a systolic of 105 then quickly went down to 98 however it did stabilize with IV fluids she always had a map greater than 65 Blood work has been reviewed she does have leukocytosis of 19 lactate 2.3 elevated creatinine 2.6 previously 1.0 troponin undetectable Viral panel is positive for parainfluenza virus. Urinalysis: Patient has not yet provided sample Chest x-ray does not show any have any evidence of pneumonia Patient is ordered sepsis fluids due to lactate leukocytosis concern and lower blood pressure but does not meet septic shock criteria. Lactate improved quickly with fluids. Patient is given cefepime she had anaphylaxis to penicillin. Covering her for superimposed pneumonia that is not yet seen on x-ray Dr. Blancas updated on patient's symptoms and test results. Accepts patient. Discharge Plan Departure Patient Disposition: Admitted As Inpatient Clinical Impression: Sepsis, Parainfluenza virus infection Admit Date/Time: 09/27/23 18:40 Admit Provider: Sascha Blancas
--- NOTE | 2023-09-27 17:27 | PC.NURSE ---
[facility] patient's case finisher.
[2023-09-27] MEDS: ALBUTEROL/IPRATROPIUM 3 ML AMPUL INH (17:43)
--- NOTE | 2023-09-27 17:58 | PM.HP.1 ---
History of Present Illness History of Present Illness Date Patient Seen: 09/27/23 Time Patient Seen: 17:59 Chief complaint: weakness Narrative: This is a 77-year-old female with a history of insulin-dependent diabetes, fibromyalgia, depression, hypertension, and recurrent UTIs. She presented to the emergency room today with hypotension and dyspnea. She was diagnosed 10 days ago with parainfluenza virus. She has been using nebulizers several times a day. She also notes anorexia but has been taking fluids. She denies any nausea, vomiting or diarrhea. Upon arrival she was afebrile. She notes that she stays in an assisted living facility and would be [place]. She has had a persistent cough for 10 days which is now productive of yellow phlegm. She denies any chest pain. No fevers, or chills. She does have intermittent dyspnea with exertion and has been using nebulizers which had been helping. She has no history of asthma, or COPD. She did take prednisone for several days last week. She has also had a poor appetite but has tried to take some fluids. She denies any hematuria, or dysuria, she does have chronic urinary incontinence. She had 1 diarrheal episode last week but none since. She feels profoundly fatigued. No skin rash, or lesions. No fevers, or chills. [facility] Medical History Secondhand smoke exposure Lichen sclerosus et atrophicus Microscopic hematuria Urge incontinence Hx of migraine headaches History of depression History of chronic urinary tract infection History of arthritis Peripheral neuropathy Depression Hyperlipidemia Fibromyalgia Hypertension Lower leg edema Diabetes Surgical History Hx of abdominal hysterectomy Hx of breast biopsy Hx of total knee replacement Hx of cholecystectomy Hx of appendectomy Family History Mother Cancer CVA (cerebral vascular accident) Hyperlipidemia Hypertension Father Hypertension Hyperlipidemia CAD (coronary artery disease) Sister Hyperlipidemia Hypertension Diabetes mellitus Multiple kidney stones Migraines Brother Hyperlipidemia Hypertension Migraines Eczema Social History marital status: number of children: 4 household members: none lives independently: Yes Smoking Status: Never smoker alcohol intake: current caffeine: Yes Type(s) of exercise: walking frequency: 3-4 times per week duration: 15-30 minutes/day Meds Home Medications and Allergies Home Medications Medication Instructions Recorded Confirmed Type duloxetine 20 mg capsule,delayed 20 mg PO DAILY 06/15/23 07/05/23 History release lisinopril 40 mg tablet 40 mg PO DAILY 06/15/23 07/05/23 History propranolol 20 mg tablet 20 mg PO BEDTIME 06/15/23 07/05/23 History quetiapine 25 mg tablet 25 mg PO BEDTIME 06/15/23 07/05/23 History rosuvastatin 40 mg tablet 40 mg PO DAILY 06/15/23 07/05/23 History ondansetron 4 mg disintegrating 4 mg PO Q6H PRN nausea and 06/16/23 07/05/23 Rx tablet vomiting #30 tabs pantoprazole 20 mg tablet,delayed 40 mg (2 x 20 mg) PO 0600 #30 tabs 06/16/23 07/05/23 Rx release insulin glargine 100 unit/mL (3 34 unit SUBCUT 2100 07/05/23 07/05/23 History mL) subcutaneous pen (Lantus Solostar U-100 Insulin) nitrofurantoin macrocrystal 100 mg 100 mg PO BID 07/05/23 08/09/23 History capsule potassium chloride 10 mEq 10 meq PO Q OTHER DAY 07/05/23 07/05/23 History tablet,extended release cefpodoxime 100 mg tablet 100 mg PO BID #6 tabs 07/06/23 08/09/23 Rx scopolamine base 1 mg over 3 days 1 patch topical Q72H #4 ea 07/06/23 Rx transdermal patch (Transderm-Scop) Allergies Allergy/AdvReac Type Severity Reaction Status Date / Time Penicillins Allergy Severe Anaphylaxis Verified 08/09/23 17:09 morphine AdvReac Nightmare Verified 08/09/23 17:09 Review of Systems Review of Systems Narrative: All else reviewed and otherwise unremarkable except as noted in the history and physical. Exam Vital Signs (past 8 hours): - 09/27/23 16:10 09/27/23 17:09 09/27/23 17:11 Temperature 98.3 F Pulse Rate 89 76 Respiratory Rate 20 Blood Pressure 105/59 L 98/55 L Pulse Oximetry 97 95 Oxygen Delivery Method Room Air 09/27/23 17:11 09/27/23 17:35 09/27/23 17:38 Temperature Pulse Rate 76 71 Respiratory Rate 12 Blood Pressure 102/56 L 107/58 L Pulse Oximetry 94 95 Oxygen Delivery Method Room Air 09/27/23 17:46 Temperature Pulse Rate 71 Respiratory Rate 20 Blood Pressure Pulse Oximetry 95 Oxygen Delivery Method Room Air Oxygen Delivery Method Room Air Narrative Exam Narrative: NAD, somewhat lethargic. Nontoxic in appearance. She is breathing comfortably with good saturations on room air. Normal skull, anicteric sclera, EOMI, symmetric pupils. Neck is supple, normal thyroid, midline trachea, no adenopathy. Lungs are notable for some expiratory wheezing, no focal findings. Normal rate and effort. Heart is regular, and without murmur. Abdomen is soft, nontender. Extremities are free of edema, good pedal and radial pulses. Skin is free of rash, or lesions. Joints are not swollen, or deformed. Motor strength is 5/5 in all extremities, no facial droop, grossly normal cranial nerves. Normal judgment. Normal speech. Objective Imaging Chest x-ray: My impression: Lung peterson are clear to my read. Radiologist's impression: No acute abnormality. Labs 09/27/23 16:34 09/27/23 16:34 Labs: Laboratory Results - last 24 hr 09/27/23 16:34 WBC 19.7 H RBC 4.36 Hgb 13.4 Hct 39.6 MCV 90.9 MCH 30.8 MCHC 33.9 RDW 13.5 Plt Count 353 Neut % (Auto) 66.2 Lymph % (Auto) 23.9 L Greenlee % (Auto) 7.2 Eos % (Auto) 1.7 L Baso % (Auto) 1.0 Neut # (Auto) 55609 H Lymph # (Auto) 4700 H Greenlee # (Auto) 1400 H Eos # (Auto) 300 Baso # (Auto) 200 H PT 12.0 INR 1.0 Sodium 135 L Potassium 4.2 Chloride 95 L Carbon Dioxide 26 BUN 61 H Creatinine 2.66 H Estimated GFR 18 L BUN/Creatinine Ratio 22.9 H Glucose 210 H Lactate 2.3 H Calcium 9.2 Total Bilirubin 1.0 AST 19 ALT 20 Alkaline Phosphatase 87 Troponin I < 0.012 NT-Pro-B Natriuret Pep 86 Total Protein 7.5 Albumin 4.1 Globulin 3.4 Albumin/Globulin Ratio 1.2 Assessment & Plan Assessment & Plan narrative: 1. Sepsis with leukocytosis, acute kidney injury, tachypnea, lactic acidosis, and a source of presumed pneumonia. Present on admission and active. 2. Viral versus bacterial pneumonia, present on admission and active. 3. Fluid responsive hypotension with sepsis, present on admission and improving. 4. Acute kidney injury, present on admission and active. 5. Lactic acidosis, present on admission and active. 6. Insulin-dependent diabetes mellitus 2, present on admission and active. 7. Hypertension, chronic and not active at admission. 8. Hyperlipidemia, present on admission and stable. 9. Lichen sclerosis, present on admission and stable. 10. Hypovolemic hyponatremia, present on admission and active. Plan: -sepsis fluid resuscitation with weight based bolus of crystalloid. If fluid responsive continue maintenance fluids. -broad-spectrum antibiotics, cefepime. The patient has a history of PCN anaphylaxis but has tolerated cephalosporins in the past. -blood and urine cultures before antibiotics. -trend lactic acid, and goal is a map of over 65. -if patient does not maintain a map of over 65 we will make a plan for central venous access and pressor support. -diabetes will be managed with IV fluids and correctional insulin tonight. She is full resuscitation. Proxy: Sister in [place], [place] and son in [place]. She has no formal paperwork filled out. Time Spent With Patient Time with patient: 30 to 49 minutes with 50% spent counseling/coordinating care Quality MIPS - Admit I confirm the patient?s Advance Care Plan is present, Code status is documented, Surrogate decision maker is in patient?s record [If Yes, STOP here]: Yes [facility] - Meds 'Current medications' to include all prescriptions, [id number] products, herbals, cannabis/cannabidiol products, and vitamin/mineral/dietary (nutritional) supplements. I have utilized all available resources to obtain, update, or review the patient?s current medications. [If Yes, STOP here]: Yes
[2023-09-27] MEDS: CEFEPIME 2 GM in SODIUM CHLORIDE 0.9% 100 ML IV (18:05)
[2023-09-27 18:14] LABS: Reflexed Lactate in 2 Hours Y
[2023-09-27 18:27] LABS: Adenovirus Not Detected (Not Detect); B. parapertussis Not Detected (Not Detecte); Bordetella pertussis Not Detected (Not Detect); Chlamydophila pneumoniae Not Detected (Not Detect); Coronavirus 229E Not Detected (Not Detect); Coronavirus HKU1 Not Detected (Not Detect); Coronavirus NL 63 Not Detected (Not Detect); Coronavirus OC43 Not Detected (Not Detect); Human Metapneumovirus Not Detected (Not Detect); Human Rhinovirus/Enterovirus Not Detected (Not Detect); Influenza A Not Detected (Not Detect); Influenza B Not Detected (Not Detect); Mycoplasma pneumoniae Not Detected (Not Detect); Parainfluenza Virus 1 Not Detected (Not Detect); Parainfluenza Virus 2 Not Detected (Not Detect); Parainfluenza Virus 3 Detected (Not Detect); Parainfluenza Virus 4 Not Detected (Not Detect); Respiratory Syncytial Virus Not Detected (Not Detect); SARS- CoV-2 Not Detected (Not Detecte)
[2023-09-27 19:07] LABS: Lactate 2HR (Lactic Acid Rflx) 1.8 mmol/L (0.7-2.1)
[2023-09-27] MEDS: HEPARIN 5,000 UNIT/ML VIAL 5000 UNIT SUBCUT (20:37)
[2023-09-27] MEDS: SODIUM CHLORIDE 0.9% 1,000 ML 100 ML IV (20:37)
[2023-09-27] MEDS: BENZONATATE 100 MG CAPSULE PO (23:25)
[2023-09-28] VITALS (10 sets, daily range): BP systolic 99–125; BP diastolic 47–53; PULSE 62–88; RESP 16–20; TEMP 35.8–37; O2SAT 91–98
[2023-09-28] MEDS: ONDANSETRON 4 MG/2 ML INJ IV (02:30)
[2023-09-28 04:50] LABS: Hemoglobin A1C% w Est Avg Glu 7.6 % (4.0-6.0)
[2023-09-28] MEDS: SODIUM CHLORIDE 0.9% 1,000 ML 100 ML IV (05:06)
--- NOTE | 2023-09-28 07:50 | P.PN_ITS ---
Subjective Subjective Interval history: She feels slightly better, still short of breath, wheezing, and coughing. She is very fatigued. Exam Vital Signs (past 8 hours): - 09/28/23 02:00 09/28/23 02:00 09/28/23 05:39 Temperature 98.6 F 97.2 F L Pulse Rate 88 80 Respiratory Rate 19 19 Blood Pressure 125/53 L 104/47 L Pulse Oximetry 91 91 92 Oxygen Delivery Method Room Air Oxygen Flow Rate 0 0 09/28/23 06:00 Temperature Pulse Rate Respiratory Rate Blood Pressure Pulse Oximetry 92 Oxygen Delivery Method Room Air Oxygen Flow Rate Oxygen Delivery Method Room Air Oxygen Flow Rate 0 Narrative Exam Narrative: NAD, lethargic, no distress. Lungs are notable for expiratory wheezing, and cough with inspiration. Normal rate and effort of breathing. Heart is regular, no murmur gallop or rub. Abdomen is non distended. Extremities are notable for 1+ edema. Objective Imaging Chest x-ray: Radiologist's impression: No acute cardiopulmonary abnormality is seen. Labs 09/27/23 16:34 09/27/23 16:34 Labs: Laboratory Results - last 24 hr 09/27/23 09/27/23 09/27/23 16:34 17:23 18:47 WBC 19.7 H RBC 4.36 Hgb 13.4 Hct 39.6 MCV 90.9 MCH 30.8 MCHC 33.9 RDW 13.5 Plt Count 353 Neut % (Auto) 66.2 Lymph % (Auto) 23.9 L [place] % (Auto) 7.2 Eos % (Auto) 1.7 L Baso % (Auto) 1.0 Neut # (Auto) 32177 H Lymph # (Auto) 4700 H [place] # (Auto) 1400 H Eos # (Auto) 300 Baso # (Auto) 200 H PT 12.0 INR 1.0 Sodium 135 L Potassium 4.2 Chloride 95 L Carbon Dioxide 26 BUN 61 H Creatinine 2.66 H Estimated GFR 18 L BUN/Creatinine Ratio 22.9 H Glucose 210 H Hemoglobin A1c Lactate 2.3 H 1.8 Calcium 9.2 Total Bilirubin 1.0 AST 19 ALT 20 Alkaline Phosphatase 87 Troponin I < 0.012 NT-Pro-B Natriuret Pep 86 Total Protein 7.5 Albumin 4.1 Globulin 3.4 Albumin/Globulin Ratio 1.2 Chlamy pneumoniae PCR Not detected Adenovirus (PCR) Not detected B.parapertussis DNA PCR Not detected Coronavirus OC43 (PCR) Not detected Coronavirus HKU1 (PCR) Not detected Coronavirus 229E (PCR) Not detected SARS-CoV-2 (PCR) Not detected Coronavirus NL63 (PCR) Not detected Human Metapneumovir PCR Not detected Influenza Type A (PCR) Not detected Influenza Type B (PCR) Not detected M. pneumoniae (PCR) Not detected Parainfluenza 1 (PCR) Not detected Parainfluenza 2 (PCR) Not detected Parainfluenza 3 (PCR) Detected H Parainfluenza 4 (PCR) Not detected RSV (PCR) Not detected Entero/Rhino (PCR) Not detected 09/28/23 04:17 WBC RBC Hgb Hct MCV MCH MCHC RDW Plt Count Neut % (Auto) Lymph % (Auto) [place] % (Auto) Eos % (Auto) Baso % (Auto) Neut # (Auto) Lymph # (Auto) [place] # (Auto) Eos # (Auto) Baso # (Auto) PT INR Sodium Potassium Chloride Carbon Dioxide BUN Creatinine Estimated GFR BUN/Creatinine Ratio Glucose Hemoglobin A1c 7.6 H Lactate Calcium Total Bilirubin AST ALT Alkaline Phosphatase Troponin I NT-Pro-B Natriuret Pep Total Protein Albumin Globulin Albumin/Globulin Ratio Chlamy pneumoniae PCR Adenovirus (PCR) B.parapertussis DNA PCR Coronavirus OC43 (PCR) Coronavirus HKU1 (PCR) Coronavirus 229E (PCR) SARS-CoV-2 (PCR) Coronavirus NL63 (PCR) Human Metapneumovir PCR Influenza Type A (PCR) Influenza Type B (PCR) M. pneumoniae (PCR) Parainfluenza 1 (PCR) Parainfluenza 2 (PCR) Parainfluenza 3 (PCR) Parainfluenza 4 (PCR) RSV (PCR) Entero/Rhino (PCR) PFS Medical History Secondhand smoke exposure Lichen sclerosus et atrophicus Microscopic hematuria Urge incontinence Hx of migraine headaches History of depression History of chronic urinary tract infection History of arthritis Peripheral neuropathy Depression Hyperlipidemia Fibromyalgia Hypertension Lower leg edema Diabetes Surgical History Hx of abdominal hysterectomy Hx of breast biopsy Hx of total knee replacement Hx of cholecystectomy Hx of appendectomy Family History Mother Cancer CVA (cerebral vascular accident) Hyperlipidemia Hypertension Father Hypertension Hyperlipidemia CAD (coronary artery disease) Sister Hyperlipidemia Hypertension Diabetes mellitus Multiple kidney stones Migraines Brother Hyperlipidemia Hypertension Migraines Eczema Social History marital status: number of children: 4 household members: none lives independently: Yes Smoking Status: Never smoker alcohol intake: current caffeine: Yes Type(s) of exercise: walking frequency: 3-4 times per week duration: 15-30 minutes/day Assessment & Plan Assessment & Plan narrative: 1. Sepsis with leukocytosis, acute kidney injury, tachypnea, lactic acidosis, and a source of presumed pneumonia. Present on admission and active. 2. Viral versus bacterial pneumonia, present on admission and active. 3. Fluid responsive hypotension with sepsis, present on admission and improving. 4. Acute kidney injury, present on admission and active. 5. Lactic acidosis, present on admission and active. 6. Insulin-dependent diabetes mellitus 2, present on admission and active. 7. Hypertension, chronic and not active at admission. 8. Hyperlipidemia, present on admission and stable. 9. Lichen sclerosis, present on admission and stable. 10. Hypovolemic hyponatremia, present on admission and active. Plan: -we will continue antibiotics without change today. Follow up blood cultures. -continue steroids and bronchodilators for reactive airways. -she is in droplet isolation for parainfluenza virus. -we will monitor glucose and adjust subcutaneous insulin as needed. -labs are pending, we will be monitoring her sodium and renal function with IV fluid . Lactic acid was normalized as of 1800 last night. She is full resuscitation. Proxy: Sister in [place], [place] and son in [place]. She has no formal paperwork filled out. Time Spent With Patient Time with patient: 30 to 49 minutes with 50% spent counseling/coordinating care Quality VTE Deep Vein Thrombosis/Pulmonary Embolism Present on Admission: No
[2023-09-28] MEDS: INSULIN LISPRO 100 UNIT/ML 3ML VIAL SUBCUT ×4 (08:22→20:51)
[2023-09-28] MEDS: predniSONE 20 MG TABLET 40 MG PO (08:23)
[2023-09-28] MEDS: HEPARIN 5,000 UNIT/ML VIAL 5000 UNIT SUBCUT ×2 (08:23→20:51)
[2023-09-28] MEDS: BENZONATATE 100 MG CAPSULE PO (08:23)
[2023-09-28] MEDS: ACETAMINOPHEN 325 MG TABLET 650 MG PO ×2 (09:02→21:02)
[2023-09-28 11:37] LABS: Hematocrit 34.1 % (36-46); Hemoglobin 11.8 g/dL (12.0-16.0); Mean Corpuscular HGB Conc 34.4 % (30-36); Mean Corpuscular Hemoglobin 31.2 PG (26-34); Mean Corpuscular Volume 90.7 fL (80-100); Platelet Count 220 X10^3/uL (150-400); Red Blood Cell Count 3.77 X10^6/uL (4.0-5.2); Red Cell Distribution Width 13.4 % (11.6-14.8); White Blood Cell Count 13.3 X10^3/uL (4.5-11.0)
[2023-09-28 11:44] LABS: BUN Creatinine Ratio 23.4 (6-22); Blood Urea Nitrogen 46 mg/dL (7-17); Calcium 7.9 mg/dL (8.4-10.2); Carbon Dioxide 23 mmol/L (22-32); Chloride 102 mmol/L (98-107); Estimated Glomerular Filt Rate 26 mL/min (>60); Glucose 184 mg/dL (80-110); HEMOLYSIS < 15 (0-50); Potassium 3.7 mmol/L (3.4-5.1); Sodium 137 mmol/L (137-145)
--- NOTE | 2023-09-28 13:00 | CM.DANOTE ---
Initial DCP Assessment Note Pt is a 77yo female, resident at [facility] , presents with weakness and shortness of breath, admitted for management of sepsis, suspected source- pneumonia (viral vs bacterial) and parainfluenza virus PCP: Monie Santamaria Payer: [facility] Reviewed chart, met w/patient to introduce self and role. Patient has just been helped up to her chair for lunch and looks/sounds very tired and out of breath. Patient is [employer]. Tried to keep this visit brief. Patient reports living at [facility] for 3 weeks although has been feeling sick for at least two of those weeks. Patient receives assist with meds, assist w/neb treatments, meals, bathing and grooming. Patient reports being in isolation at [facility] for the last two weeks so meals are delivered to her room. Patient would like to return to [facility] upon discharge. Patient has had [facility] at [facility] and would like this to resume. Patient would like DPOA ppk in order to designate 1. sister, who lives in [place], [place] and 2. son that lives in [place] Attempted to reach an RN at [facility] to discuss patient and schedule a bedside assessment, if needed, for patient's return. Attempted main number 5 times P [phone], call gets disconnected. Attempted email to [email or web address] asking for better number. Placed call to Nola Sylvester (Ph. # [phone]) with [facility], patient's pillowcase folder, had to LM requesting CB. CM team will need to follow closely for assessment of need and coordination with patient's [facility], communication will likely not improve over the weekend. RENZO Fernandes Discharge Planning/Care Management CM Discharge Assessment Start: 09/28/23 12:53 Freq: Status: Active Protocol: Document 09/28/23 12:55 ENRIQUE (Rec: 09/28/23 13:00 ENRIQUE [id number]) Discharge Planning Assessment Assigned Electron Beam Photo Mask Technician RENZO Onofre DPOA/Assigned Designee Name dayana Baca Contact Information [phone] Advance Directives? Yes Advance Directives on File No History Provided By Patient,Medical Record Prior Living Arrangements Assisted Living Household Members none Type of transporation used prior to Relies on Others admit Facility Name Admitted From: [facility] Willing to Return to Facility? Yes Independent with ADL's No Is patient alert and oriented? Yes Needs Assistance With Bathing,Grooming,Meal Prep, Managing Medications,Home Chores / Shopping Patient/Family Preference Home with Home Health Comment Patient may need a bedside assessment from [facility] RN before return, patient has been living at [facility] x3 weeks and has been needing a lo of assist, has not been feeling well x2 weeks. Discharge Plan Assisted Living Facility Transportation Arrangement Daughter vs facility van Referrals Initiated Home Health Additional Comment If discharged back to [facility], resumption of [facility] SNF[facility]HH Preference [facility]
[2023-09-28] MEDS: AZITHROMYCIN 500 MG in DEXTROSE 5% IN WATER 250 ML 250 MG IV (13:44)
[2023-09-28] MEDS: CEFEPIME 2 GM in SODIUM CHLORIDE 0.9% 100 ML IV (18:19)
[2023-09-28] MEDS: QUETIAPINE 25 MG TABLET PO (22:20)
[2023-09-29] VITALS (13 sets, daily range): BP systolic 99–133; BP diastolic 43–67; PULSE 71–86; RESP 16–20; TEMP 35.7–36.4; O2SAT 93–97
[2023-09-29] MEDS: SODIUM CHLORIDE 0.9% 1,000 ML 100 ML IV ×2 (03:34→14:14)
[2023-09-29] MEDS: ACETAMINOPHEN 325 MG TABLET 650 MG PO ×3 (04:36→21:10)
[2023-09-29] MEDS: TRAMADOL 50 MG TABLET PO (05:11)
[2023-09-29 07:11] LABS: Hematocrit 32.3 % (36-46); Hemoglobin 11.4 g/dL (12.0-16.0); Mean Corpuscular HGB Conc 35.3 % (30-36); Mean Corpuscular Hemoglobin 31.8 PG (26-34); Mean Corpuscular Volume 90.2 fL (80-100); Platelet Count 210 X10^3/uL (150-400); Red Blood Cell Count 3.58 X10^6/uL (4.0-5.2); Red Cell Distribution Width 13.1 % (11.6-14.8); White Blood Cell Count 11.9 X10^3/uL (4.5-11.0)
[2023-09-29 07:16] LABS: BUN Creatinine Ratio 22.5 (6-22); Blood Urea Nitrogen 36 mg/dL (7-17); Calcium 8.2 mg/dL (8.4-10.2); Carbon Dioxide 25 mmol/L (22-32); Chloride 105 mmol/L (98-107); Estimated Glomerular Filt Rate 33 mL/min (>60); Glucose 212 mg/dL (80-110); HEMOLYSIS < 15 (0-50); Potassium 3.2 mmol/L (3.4-5.1); Sodium 138 mmol/L (137-145)
--- NOTE | 2023-09-29 07:42 | PM.PN.1 ---
Subjective Subjective Interval history: She has found a little bit better. She denies any nausea. She is having right posterior chest pain which does increase with coughing. No urinary symptoms. She is out of bed in a chair. She does feel better than yesterday. Exam Vital Signs (past 8 hours): - 09/29/23 02:00 09/29/23 04:09 09/29/23 04:17 Temperature 96.3 F L Pulse Rate 80 Respiratory Rate 18 Blood Pressure 99/43 L 133/51 L Pulse Oximetry 95 94 Oxygen Delivery Method Room Air Oxygen Flow Rate 09/29/23 06:00 09/29/23 07:25 Temperature 96.5 F L Pulse Rate 71 Respiratory Rate 20 Blood Pressure 113/52 L Pulse Oximetry 94 93 Oxygen Delivery Method Room Air Oxygen Flow Rate 0 Oxygen Delivery Method Room Air Oxygen Flow Rate 0 Narrative Exam Narrative: NAD, fluent speech. Lungs are notable for good air movement, less wheezing than yesterday. No focal findings. Heart is regular. Abdomen is soft, non distended. Legs are free of edema. Objective Labs 09/29/23 06:40 09/29/23 06:40 Labs: Laboratory Results - last 24 hr 09/28/23 09/29/23 11:08 06:40 WBC 13.3 H 11.9 H RBC 3.77 L 3.58 L Hgb 11.8 L 11.4 L Hct 34.1 L 32.3 L MCV 90.7 90.2 MCH 31.2 31.8 MCHC 34.4 35.3 RDW 13.4 13.1 Plt Count 220 210 Sodium 137 138 Potassium 3.7 3.2 L Chloride 102 105 Carbon Dioxide 23 25 BUN 46 H 36 H Creatinine 1.97 H 1.60 H Estimated GFR 26 L 33 L BUN/Creatinine Ratio 23.4 H 22.5 H Glucose 184 H 212 H Calcium 7.9 L 8.2 L PFSH Medical History Secondhand smoke exposure Lichen sclerosus et atrophicus Microscopic hematuria Urge incontinence Hx of migraine headaches History of depression History of chronic urinary tract infection History of arthritis Peripheral neuropathy Depression Hyperlipidemia Fibromyalgia Hypertension Lower leg edema Diabetes Surgical History Hx of abdominal hysterectomy Hx of breast biopsy Hx of total knee replacement Hx of cholecystectomy Hx of appendectomy Family History Mother Cancer CVA (cerebral vascular accident) Hyperlipidemia Hypertension Father Hypertension Hyperlipidemia CAD (coronary artery disease) Sister Hyperlipidemia Hypertension Diabetes mellitus Multiple kidney stones Migraines Brother Hyperlipidemia Hypertension Migraines Eczema Social History marital status: number of children: 4 household members: none lives independently: Yes Smoking Status: Never smoker alcohol intake: current caffeine: Yes Type(s) of exercise: walking frequency: 3-4 times per week duration: 15-30 minutes/day Assessment & Plan Assessment & Plan narrative: 1. Sepsis with leukocytosis, acute kidney injury, tachypnea, lactic acidosis, and a source of presumed pneumonia. Present on admission and active. 2. Viral versus bacterial pneumonia, present on admission and active. 3. Fluid responsive hypotension with sepsis, present on admission and improving. 4. Acute kidney injury, present on admission and improving. 5. Lactic acidosis, present on admission and resolved. 6. Insulin-dependent diabetes mellitus 2, present on admission and active. 7. Hypertension, chronic and not active at admission. 8. Hyperlipidemia, present on admission and stable. 9. Lichen sclerosis, present on admission and stable. 10. Hypovolemic hyponatremia, present on admission and active. Plan: -we will continue antibiotics for standard course. Negative blood cultures. -continue steroids and bronchodilators for reactive airways. -she is in droplet isolation for parainfluenza virus. -we will monitor glucose and adjust subcutaneous insulin as needed. -OOB and tylenol for rib pain Home to Assisted Living in 1-2 days. She is full resuscitation. Proxy: Sister in [place], [place] and son in [place]. She has no formal paperwork filled out. Time Spent With Patient Time with patient: 30 to 49 minutes with 50% spent counseling/coordinating care Quality VTE Deep Vein Thrombosis/Pulmonary Embolism Present on Admission: No
[2023-09-29] MEDS: INSULIN LISPRO 100 UNIT/ML 3ML VIAL SUBCUT ×4 (07:58→21:00)
[2023-09-29] MEDS: HEPARIN 5,000 UNIT/ML VIAL 5000 UNIT SUBCUT ×2 (09:32→20:59)
[2023-09-29] MEDS: predniSONE 20 MG TABLET 40 MG PO (09:32)
--- NOTE | 2023-09-29 11:00 | CM.DPC ---
DCP Cont: Per MD, pt making progress and likely stable for discharge in 1-2 days. Per RN, pt was able to get up to the bedside chair but feels pt could benefit from PT eval. PT ordered and pending. SW confirmed with [facility] that they are currently open to service with pt and active until 10/23/23 and waiting for confirmation if they need Resumption Orders or all new F2F. SW called [facility] and spoke to their staff and updated on possible d/c in the next 1-2 days and inquired if they needed any clinicals faxed. Staff unsure but states pt can return at d/c but they do not provide transport. SW faxed clinicals to [facility] to review and will send PT eval when available. Plan: SW to follow for plan of d/c back to [facility] with [facility] and taxi vs bottle caser [facility]ola ([phone]) pending Sun vs Mon discharge. RENZO Chaudhary
--- NOTE | 2023-09-29 11:35 | PT.IIE ---
Current Diagnoses Sepsis, unspecified organism (09/27/23) Surgical History (Last Reviewed 09/28/23 @ 07:51 by Sascha Blancas MD) Hx of abdominal hysterectomy Hx of appendectomy Hx of breast biopsy Hx of cholecystectomy Hx of total knee replacement Medical History (Last Reviewed 09/28/23 @ 07:51 by Sascha Blancas MD) Depression Diabetes Fibromyalgia History of arthritis History of chronic urinary tract infection History of depression Hx of migraine headaches Hyperlipidemia Hypertension Lichen sclerosus et atrophicus Lower leg edema Microscopic hematuria Peripheral neuropathy Secondhand smoke exposure Urge incontinence Physical Therapy Inpatient Evaluation/Re-Eval M1 PT/OT-IP Prior Functional Status Start: 09/29/23 13:35 Freq: NEEDED Status: Active Protocol: Document 09/29/23 11:35 AB (Rec: 09/29/23 13:47 AB [id number]) Medical Review Prior Functional Status Medical History Reviewed Yes Communication able to make needs known Mobility and Gait pt stated tht she was modified independent with transfers and ambulation using FWW but with h/o falls. pt stated that NURSING HOME staff assists her with ADLs and occasionally with bed mobility. pt stated that she had a few falls due to weakness and LE just giving out but able to ambulate in her room/apartment using FWW without assistance. Social History Household Members none Living Arrangements Assisted Living Number of Stairs To Enter/Railing? pt lives at [facility] NURSING HOME: stated that she just moved there 3 weeks ago Home Environment Standard Height Toilet,Walk in Shower,Built-In Shower Seat Home Equipment Front Wheel Walker,Bedside Commode,Hand Held Shower,Grab Bars Near Toilet,Grab Bars In Shower M2 PT-IP Current Condition Start: 09/29/23 13:35 Freq: NEEDED Status: Active Protocol: Document 09/29/23 11:35 AB (Rec: 09/29/23 13:47 AB [id number]) Physical Therapy Current Condition Current Condition Evaluation Date 09/29/23 Treatment Diagnosis sepsis; parainfluenza virus infxn; difficulty in walking Onset Date 09/27/23 M3 PT-IP Subjective Start: 09/29/23 13:35 Freq: NEEDED Status: Active Protocol: Document 09/29/23 11:35 AB (Rec: 09/29/23 13:47 AB [id number]) Subjective Physical Therapy Visit Type Type Initial Evaluation Visit Start Time 11:35 Visit Stop Time 12:15 Number of PAID SEARCH MARKETING STRATEGIST Visits 0 Physical Therapy Visit Comments Patient Comments agreeable to do PT M4 PT-IP Mobility and Gait Start: 09/29/23 13:35 Freq: NEEDED Status: Active Protocol: Document 09/29/23 11:35 AB (Rec: 09/29/23 13:47 AB [id number]) PT-Bed Mobility Assessment Supine to Sit Supine to Sit Standby Assistance Sit to Supine Sit to Supine Standby Assistance PT-Transfer Assessment Sit to and From Stand Sit to and from Stand Standby Assistance,Contact Guard Assistance,1 Person Assistance,Use of Upper Extremities Equipment Transfer Assistive Device Gait Belt,Front Wheeled Walker Orthotic/Prosthetic Devices or Brace: No Transfers Transfer Destination Bed,Toilet Transfer Technique Stand Step Pivot Transfer Ability Level of Assist Standby Assistance,Contact Guard Assistance Comments Mobility Comments pt sitting on the chair and agreeable to do PT. obtained PLOF and home set up from pt. O2 sat at RA 95% throughout PT session despite (+) SOB. pt completed sit to stand SBA to CGA and completed step transfer to bed using fWW. pt demonstrated sit<>supine sBA. cued for deep breathing. pt completed sit to stand from EOB SBA to cGA and ambulated in room using FWW ~ 20 ft SBA to cGA. pt sat on the chair. positioned on the chair. call light and table placed within reach. pt stated that she is very tired and unable to walk more. Gait Assessment Gait Gait Assistance Required: Standby Assistance,Contact Guard Assist Distance (Feet) 20 Able to Maintain Weight Bearing Status Yes During Gait Assistive Devices Assistive Device Gait Belt,Front Wheeled Walker Orthotic/Prosthetic Devices or Brace: No Gait Deviations General Gait Pattern Ataxic,Decreased Stride Length ,Decreased Feet Clearance Factors Limiting Gait Function Factors Limiting Gait Function Decreased Activity Tolerance, Decreased Strength,Difficulty Following Directions,Poor Balance,Poor Safety Awareness, Respiratory Distress PT-Balance Assessment Sitting Balance and Reactions Static Sitting Balance Ability Normal Dynamic Sitting Balance Ability Good Standing Balance and Reactions Static Standing Balance Ability Fair Dynamic Standing Balance Ability Fair Device Used FWW M5 PT-IP Objective Assessments Start: 09/29/23 13:35 Freq: NEEDED Status: Active Protocol: Document 09/29/23 11:35 AB (Rec: 09/29/23 13:47 AB [id number]) Orientation Orientation/Cognition Level of Alertness Alert Orientation Name,Place,Situation Language Function Ability No Deficits Noted Safety Awareness Decreased Safety Awareness Memory Description Short Term Impaired Gross Range of Motion Lower Extremity ROM Assessment Within Functional Limits Strength Lower Extremity Strength Assessment Right Impaired Hip 3+/5 Knee 3+/5 Muscle Tone Muscle Tone WNL Yes M6 PT-IP Treatment Start: 09/29/23 13:35 Freq: NEEDED Status: Active Protocol: Document 09/29/23 11:35 AB (Rec: 09/29/23 13:47 AB [id number]) Physical Therapy Treatment Education Education Provided Safety M7 PT-IP Assessment and Plan Start: 09/29/23 13:35 Freq: NEEDED Status: Active Protocol: Document 09/29/23 11:35 AB (Rec: 09/29/23 13:47 AB [id number]) PT Summary Assessment and Plan Potential Rehabilitation Potential Fair Status of Condition at Evaluation Evolving Summary Impairments Pain,ROM,Strength,Balance, Coordination,Sensation,Tone, Cognition,Bed Mobility, Transfers,Gait,Activity Tolerance Assessment Summary pt ia a 77 y/o F who presented to the ED with SOB. pt admitted for sepsis; parainfluenza virus infection. pt requiring SBA to CGA with mobility using fWW and has decrease activity tolerance influecing level of assistance . pt with h/o falls. pt lives at [facility] and pt stated that she calls for assistance when needed. d/c plan depending on progress: SNF vs [facility] with HHPT. Goals Bed Mobility Goal Independent Transfer Goal Independent,Front Wheeled Walker Gait Goal Independent,Front Wheel Walker Gait Distance 150 Days to Meet Goals 10 Frequency of Treatment Frequency Of Treatment Once a Day Treatment Plan Physical Therapy Treatment Plan Bed Mobility Training,Transfer Training,Gait Training, Therapeutic Exercise,Balance Retraining,Discharge Planning, Hot or Cold Pack,Neuromuscular Re-ed,Coordination Retraining Precautions Other Precautions droplet precautions; falls Recommendations To Nursing Amount of Assist Needed 1 Person Assist Discharge Recommendations PT Discharge Recommendations Home with 26/02 Assist Available,Home Health,SNF Rehab,Home vs SNF Transportation Needs at Discharge Private Vehicle,Wheelchair/ Cabulance
[2023-09-29] MEDS: cefTRIAXone 1,000 MG in SODIUM CHLORIDE 0.9% 100 ML 200 MG IV (12:30)
[2023-09-29] MEDS: AZITHROMYCIN 500 MG in DEXTROSE 5% IN WATER 250 ML 250 MG IV (14:00)
[2023-09-29] MEDS: POTASSIUM CHLORIDE 20 MEQ TAB 40 MEQ PO ×2 (14:35→20:59)
[2023-09-29] MEDS: INSULIN GLARGINE 100 UNIT/ML 3ML PEN 25 UNIT SUBCUT (17:32)
--- NOTE | 2023-09-29 18:27 | PC.NURSE ---
Pt A/o SpO2 95% RA IVF as per orders. Up in chair several times 1PA CBG 212, 219 & 386. Given S/S as per orders. w/ AC paco CLARK added Fred, Will assess effectiveness Call light w/in reach; pt calls appropriately for needs. Continue w/plan of care.
[2023-09-29] MEDS: QUETIAPINE 25 MG TABLET PO (20:59)
[2023-09-30] VITALS (10 sets, daily range): BP systolic 113–142; BP diastolic 55–70; PULSE 72–90; RESP 17–22; TEMP 35.7–36.8; O2SAT 94–96
[2023-09-30 05:23] LABS: Add Manual Diff / Slide Review NO; Basophils Absolute Auto 0 /uL (0-100); Basophils Percent Auto 0.3 % (0-2); Eosinophils Absolute Auto 0 /uL (0-450); Eosinophils Percent Auto 0.3 % (2-4); Hematocrit 32.7 % (36-46); Hemoglobin 11.3 g/dL (12.0-16.0); Lymphocytes Absolute Auto 3300 /uL (1100-4500); Lymphocytes Percent Auto 28.4 % (25-40); Mean Corpuscular HGB Conc 34.5 % (30-36); Mean Corpuscular Hemoglobin 31.2 PG (26-34); Mean Corpuscular Volume 90.5 fL (80-100); Monocytes Absolute Auto 700 /uL (0-900); Monocytes Percent Auto 6.1 % (3-14); Neutrophils Absolute Auto 7500 /uL (1500-7000); Neutrophils Percent Auto 64.9 % (50-75); Platelet Count 205 X10^3/uL (150-400); Red Blood Cell Count 3.62 X10^6/uL (4.0-5.2); White Blood Cell Count 11.6 X10^3/uL (4.5-11.0)
[2023-09-30 05:35] LABS: BUN Creatinine Ratio 24.4 (6-22); Blood Urea Nitrogen 32 mg/dL (7-17); Calcium 8.5 mg/dL (8.4-10.2); Carbon Dioxide 24 mmol/L (22-32); Chloride 103 mmol/L (98-107); Estimated Glomerular Filt Rate 42 mL/min (>60); Glucose 245 mg/dL (80-110); HEMOLYSIS < 15 (0-50); Potassium 3.7 mmol/L (3.4-5.1); Sodium 136 mmol/L (137-145)
[2023-09-30] MEDS: ONDANSETRON 4 MG/2 ML INJ IV ×3 (06:29→16:03)
[2023-09-30] MEDS: BENZONATATE 100 MG CAPSULE PO ×2 (06:29→11:25)
[2023-09-30] MEDS: INSULIN LISPRO 100 UNIT/ML 3ML VIAL SUBCUT ×4 (09:13→21:05)
[2023-09-30] MEDS: ATORVASTATIN 20 MG TABLET 80 MG PO ×2 (09:15→21:02)
[2023-09-30] MEDS: HEPARIN 5,000 UNIT/ML VIAL 5000 UNIT SUBCUT ×2 (09:15→21:02)
[2023-09-30] MEDS: AMLODIPINE 5 MG TABLET 10 MG PO (09:16)
[2023-09-30] MEDS: DULOXETINE 20 MG CAPSULE PO (09:16)
[2023-09-30] MEDS: lisinopriL 20 MG TABLET 40 MG PO (09:16)
[2023-09-30] MEDS: predniSONE 20 MG TABLET 40 MG PO (09:16)
[2023-09-30] MEDS: FLUoxetine 20 MG CAPSULE 40 MG PO (09:16)
--- NOTE | 2023-09-30 09:26 | PT.IPTN ---
Current Diagnoses Sepsis, unspecified organism (09/27/23) Physical Therapy Treatment Note M2 PT-IP Current Condition Start: 09/29/23 13:35 Freq: NEEDED Status: Active Protocol: Document 09/29/23 11:35 AB (Rec: 09/29/23 13:47 AB [id number]) Physical Therapy Current Condition Current Condition Evaluation Date 09/29/23 Treatment Diagnosis sepsis; parainfluenza virus infxn; difficulty in walking Onset Date 09/27/23 M3 PT-IP Subjective Start: 09/29/23 13:35 Freq: NEEDED Status: Active Protocol: Document 09/30/23 09:11 KS (Rec: 09/30/23 10:55 KS [id number]) Subjective Physical Therapy Visit Type Type Treatment Note Visit Start Time 09:11 Visit Stop Time 09:26 Number of DIESEL SERVICE TECHNICIAN Visits 25 Physical Therapy Visit Comments Patient Comments agreeable to do PT M4 PT-IP Mobility and Gait Start: 09/29/23 13:35 Freq: NEEDED Status: Active Protocol: Document 09/30/23 09:11 KS (Rec: 09/30/23 10:55 KS [id number]) PT-Transfer Assessment Sit to and From Stand Sit to and from Stand Standby Assistance,Contact Guard Assistance,1 Person Assistance,Use of Upper Extremities Equipment Transfer Assistive Device Gait Belt,Front Wheeled Walker Orthotic/Prosthetic Devices or Brace: No Transfers Transfer Destination Chair Transfer Technique ambulated w/ FWW Transfer Ability Level of Assist Standby Assistance,Contact Guard Assistance Comments Mobility Comments Pt in bed upon arrival, reports fatigue but motivated to participate. SBA to CGA for sp<>sit, scooting EOB, and sit<>stand w/ FWW. Pt ambulated ~40 ft w/ 2 short standing rest breaks due to fatigue. She then requested to sit in chair. Pt performed bilateral ankle pumps, quad sets, and glute sets. Left in chair w/ all needs in reach. Gait Assessment Gait Gait Assistance Required: Standby Assistance,Contact Guard Assist,1 Person Assist Distance (Feet) 40 Able to Maintain Weight Bearing Status Yes During Gait Assistive Devices Assistive Device Gait Belt,Front Wheeled Walker Orthotic/Prosthetic Devices or Brace: No Gait Deviations General Gait Pattern Decreased Stride Length, Decreased Feet Clearance Factors Limiting Gait Function Factors Limiting Gait Function Decreased Activity Tolerance, Decreased Strength,Difficulty Following Directions,Poor Balance,Poor Safety Awareness, Respiratory Distress Comments Gait Comments Pt has slow gait, quick approach to fatigue. Limited by weakness and poor balance. Good use of FWW. PT-Balance Assessment Sitting Balance and Reactions Static Sitting Balance Ability Normal Dynamic Sitting Balance Ability Good Standing Balance and Reactions Static Standing Balance Ability Fair Dynamic Standing Balance Ability Fair Device Used FWW M5 PT-IP Objective Assessments Start: 09/29/23 13:35 Freq: NEEDED Status: Active Protocol: Document 09/29/23 11:35 AB (Rec: 09/29/23 13:47 AB [id number]) Orientation Orientation/Cognition Level of Alertness Alert Orientation Name,Place,Situation Language Function Ability No Deficits Noted Safety Awareness Decreased Safety Awareness Memory Description Short Term Impaired Gross Range of Motion Lower Extremity ROM Assessment Within Functional Limits Strength Lower Extremity Strength Assessment Right Impaired Hip 3+/5 Knee 3+/5 Muscle Tone Muscle Tone WNL Yes M6 PT-IP Treatment Start: 09/29/23 13:35 Freq: NEEDED Status: Active Protocol: Document 09/30/23 09:11 KS (Rec: 09/30/23 10:55 KS [id number]) Physical Therapy Treatment Exercises Exercises Ankle Pumps,Gluteal Sets,Quad Sets Education Education Provided Safety M7 PT-IP Assessment and Plan Start: 09/29/23 13:35 Freq: NEEDED Status: Active Protocol: Document 09/30/23 09:11 KS (Rec: 09/30/23 10:55 KS [id number]) PT Summary Assessment and Plan Potential Rehabilitation Potential Fair Status of Condition at Evaluation Evolving Summary Impairments Pain,ROM,Strength,Balance, Coordination,Sensation,Tone, Cognition,Bed Mobility, Transfers,Gait,Activity Tolerance Progress Towards Goals Slow Progress due to Medical Issues,Slow Progress due to Activity Tolerance Assessment Summary Pt making slow progress, remians SBA to CGA. Able to increase gait distance and complete LE exercises to promote strengthening. Pt has history of falls, d/c plan depending on progress and asssitance available to her. Goals Bed Mobility Goal Independent Transfer Goal Independent,Front Wheeled Walker Gait Goal Independent,Front Wheel Walker Gait Distance 150 Days to Meet Goals 10 Frequency of Treatment Frequency Of Treatment Once a Day Treatment Plan Physical Therapy Treatment Plan Bed Mobility Training,Transfer Training,Gait Training, Therapeutic Exercise,Balance Retraining,Discharge Planning, Hot or Cold Pack,Neuromuscular Re-ed,Coordination Retraining Precautions Other Precautions droplet precautions; falls Recommendations To Nursing Amount of Assist Needed 1 Person Assist Discharge Recommendations PT Discharge Recommendations Home with 26/02 Assist Available,Home Health,SNF Rehab,Home vs SNF Transportation Needs at Discharge Private Vehicle,Wheelchair/ Cabulance
--- NOTE | 2023-09-30 09:38 | PC.NURSE ---
up with PT see note, up in chair, 96% on ra no cough at rest.
[2023-09-30] MEDS: cefTRIAXone 1,000 MG in SODIUM CHLORIDE 0.9% 100 ML 200 MG IV (11:25)
[2023-09-30] MEDS: AZITHROMYCIN 500 MG in DEXTROSE 5% IN WATER 250 ML 250 MG IV (12:49)
--- NOTE | 2023-09-30 12:49 | P.PN_ITS ---
Subjective Subjective Interval history: This is a 77-year-old female who was diagnosed with parainfluenza virus 10 days prior to admission but had continued dyspnea and weakness as well as volume depletion. She presented and was treated for reactive airways as well as possible bacterial pneumonia. She is slowly improving. She was extremely volume depleted and weak. She has been able to progress with some ambulation and up to a chair over the last day. She does live at [facility] and assisted living in [place]. She is moved into this facility 3 weeks ago and has been in isolation for the last 2 weeks. She does not have a history of asthma or COPD. She feels today that she is improving and may be able to return home in the next 1 day or so. She does request increased physical therapy support at home with home health. She also does have diabetes and had hyperglycemia owing to her lack of Lantus for the 1st day while she was here and her steroids. S; improving, still somewhat short of breath and weak. She is still coughing up colored sputum. Her right posterior chest pain with coughing has improved significantly. Exam Vital Signs (past 8 hours): - 09/30/23 06:00 09/30/23 06:18 09/30/23 07:58 Temperature 96.3 F L Pulse Rate 80 Respiratory Rate 19 Blood Pressure 142/69 H Pulse Oximetry 96 96 96 Oxygen Delivery Method Room Air Room Air Oxygen Flow Rate 0 09/30/23 07:58 09/30/23 09:16 09/30/23 12:00 Temperature 96.9 F L Pulse Rate 82 82 74 Respiratory Rate 22 18 Blood Pressure 131/70 131/70 123/57 L Pulse Oximetry 96 95 Oxygen Delivery Method Oxygen Flow Rate 0 Oxygen Delivery Method Room Air Oxygen Flow Rate 0 Narrative Exam Narrative: NAD, alert and oriented. Fluent speech. Lungs are with expiratory wheezing but improved overall and with better air movement. Normal rate and effort. Heart is regular, no murmur gallop or rub. Abdomen is soft, non distended. Extremities are free of edema. Objective Labs 09/30/23 05:01 09/30/23 05:01 Labs: Laboratory Results - last 24 hr 09/30/23 05:01 WBC 11.6 H RBC 3.62 L Hgb 11.3 L Hct 32.7 L MCV 90.5 MCH 31.2 MCHC 34.5 RDW 13.0 Plt Count 205 Neut % (Auto) 64.9 Lymph % (Auto) 28.4 [place] % (Auto) 6.1 Eos % (Auto) 0.3 L Baso % (Auto) 0.3 Neut # (Auto) 7500 H Lymph # (Auto) 3300 [place] # (Auto) 700 Eos # (Auto) 0 Baso # (Auto) 0 Sodium 136 L Potassium 3.7 Chloride 103 Carbon Dioxide 24 BUN 32 H Creatinine 1.31 H Estimated GFR 42 L BUN/Creatinine Ratio 24.4 H Glucose 245 H Calcium 8.5 PFSH Medical History Secondhand smoke exposure Lichen sclerosus et atrophicus Microscopic hematuria Urge incontinence Hx of migraine headaches History of depression History of chronic urinary tract infection History of arthritis Peripheral neuropathy Depression Hyperlipidemia Fibromyalgia Hypertension Lower leg edema Diabetes Surgical History Hx of abdominal hysterectomy Hx of breast biopsy Hx of total knee replacement Hx of cholecystectomy Hx of appendectomy Family History Mother Cancer CVA (cerebral vascular accident) Hyperlipidemia Hypertension Father Hypertension Hyperlipidemia CAD (coronary artery disease) Sister Hyperlipidemia Hypertension Diabetes mellitus Multiple kidney stones Migraines Brother Hyperlipidemia Hypertension Migraines Eczema Social History marital status: number of children: 4 household members: none lives independently: Yes Smoking Status: Never smoker alcohol intake: current caffeine: Yes Type(s) of exercise: walking frequency: 3-4 times per week duration: 15-30 minutes/day Assessment & Plan Assessment & Plan narrative: 1. Sepsis with leukocytosis, acute kidney injury, tachypnea, lactic acidosis, and a source of presumed pneumonia. Present on admission and improvede. 2. Viral and possible secondary bacterial pneumonia, present on admission and improving. 3. Fluid responsive hypotension with sepsis, present on admission and resolved. 4. Acute kidney injury, present on admission and improving. She may have some chronic kidney disease with a creatinine that is in the 1.3 baseline range. We will continue to follow and trend. 5. Lactic acidosis, present on admission and resolved. 6. Insulin-dependent diabetes mellitus 2, present on admission and active. Initially poorly controlled but now better with increase Lantus dosing last evening. 7. Hypertension, chronic and not active at admission. 8. Hyperlipidemia, present on admission and stable. 9. Lichen sclerosis, present on admission and stable. 10. Hypovolemic hyponatremia, present on admission and active. PLAN: -continue antibiotics, standard course for cap. -continue steroids for total of 5 days, bronchodilators for reactive airways. -out of bed she is, possible discharge in the next 1 day or so with home health physical therapy. Dispo: [facility] assisted living in [place], likely in 1 day with home health. Time Spent With Patient Time with patient: 30 to 49 minutes with 50% spent counseling/coordinating care Quality VTE Deep Vein Thrombosis/Pulmonary Embolism Present on Admission: No
--- NOTE | 2023-09-30 13:12 | CM.DPC ---
DCP HALFWAY planning cont: Per MD, pt making slow progress and not yet medically stable to d/c yet today but likely in 1-2 days pending progress. Per PT, pt making slow progress as well and mostly CGA to SBA and feel pt will likely make enough progress for HALFWAY with HH. Pt preference and hope is to d/c back to with [facility] Sunday. SW confirmed with [facility] that they do not need new F2F only Resumption Orders with discharge summary at discharge. [facility] faxed updated MD prog note and PT note from today to for review. Plan: CARITO to follow in the AM with [facility] to confirm their review and plan of pt return with [facility]. RENZO Chaudhary
[2023-09-30] MEDS: ACETAMINOPHEN 325 MG TABLET 650 MG PO ×2 (16:03→21:07)
[2023-09-30] MEDS: polyethylene glycoL 3350 17 GM POWD.PACK PO ×2 (16:49→21:06)
[2023-09-30] MEDS: INSULIN GLARGINE 100 UNIT/ML 3ML PEN 20 UNIT SUBCUT (17:02)
[2023-09-30] MEDS: INSULIN GLARGINE 100 UNIT/ML 3ML PEN 30 UNIT SUBCUT (21:04)
[2023-09-30] MEDS: SODIUM CHLORIDE 0.9% FLUSH 10 ML IV (21:06)
[2023-09-30] MEDS: QUETIAPINE 25 MG TABLET PO (21:06)
--- NOTE | 2023-09-30 23:39 | PC.NURSE ---
Patient is alert and oriented although very [place] without hearing aids making communication more challenging. Breath sounds CTA with RA sat of 94%. States she has been having increased sputum production today (yellow-green) but none noted by this RN. She states she is SOB both at rest and with activity but was able to speak in complete sentences. HRR. Endorses mild nausea related to cough but declined antiemetic. BT present and abdomen is soft and is passing flatus but has not had a BM x 6d per patient although she reported last BM being on 09/27 on admit; received Miralax today x2 and is ordered BID. Using external catheter per patient request as she reports urinary urgency and stress incontinence but denied dysuria. Is able to move herself in bed but instructed to call for assist when needing any help. Is up in room with walker and 1 assist. Complained of generalized pain related to fibromyalgia as well as coughing and was medicated with Tylenol earlier and is now asleep. Bilateral calf SCD's applied when she went to bed for the night. Fall risk score is high and bed alarm is activated.
[2023-10-01 00:16] VITALS: BP 103/46; PULSE 74; RESP 16; TEMP 36.3; O2SAT 95
[2023-10-01] MEDS: ACETAMINOPHEN 325 MG TABLET 650 MG PO (00:54)
[2023-10-01 03:10] VITALS: BP 112/59; PULSE 72; RESP 16; TEMP 36.1; O2SAT 96
[2023-10-01 07:00] VITALS: BP 131/60; PULSE 75; RESP 18; TEMP 36.6; O2SAT 94
[2023-10-01 08:00] VITALS: O2SAT 94
[2023-10-01 09:23] VITALS: BP 131/60; PULSE 75
[2023-10-01] MEDS: SODIUM CHLORIDE 0.9% FLUSH 10 ML IV (09:23)
[2023-10-01] MEDS: FLUoxetine 20 MG CAPSULE 40 MG PO (09:23)
[2023-10-01] MEDS: lisinopriL 20 MG TABLET 40 MG PO (09:23)
[2023-10-01] MEDS: polyethylene glycoL 3350 17 GM POWD.PACK PO (09:23)
[2023-10-01] MEDS: AMLODIPINE 5 MG TABLET 10 MG PO (09:24)
[2023-10-01] MEDS: HEPARIN 5,000 UNIT/ML VIAL 5000 UNIT SUBCUT (09:24)
[2023-10-01] MEDS: predniSONE 20 MG TABLET 40 MG PO (09:24)
[2023-10-01] MEDS: DULOXETINE 20 MG CAPSULE PO (09:24)
[2023-10-01] MEDS: INSULIN LISPRO 100 UNIT/ML 3ML VIAL SUBCUT ×2 (09:24→12:14)
--- NOTE | 2023-10-01 12:09 | PM.DS.1 ---
History of Present Illness History of Present Illness Date Patient Seen: 10/01/23 Time Patient Seen: 12:09 Chief complaint: weakness Narrative: Per admitting provider, This is a 77-year-old female with a history of insulin-dependent diabetes, fibromyalgia, depression, hypertension, and recurrent UTIs. She presented to the emergency room today with hypotension and dyspnea. She was diagnosed 10 days ago with parainfluenza virus. She has been using nebulizers several times a day. She also notes anorexia but has been taking fluids. She denies any nausea, vomiting or diarrhea. Upon arrival she was afebrile. She notes that she stays in an assisted living facility and would [place]. She has had a persistent cough for 10 days which is now productive of yellow phlegm. She denies any chest pain. No fevers, or chills. She does have intermittent dyspnea with exertion and has been using nebulizers which had been helping. She has no history of asthma, or COPD. She did take prednisone for several days last week. She has also had a poor appetite but has tried to take some fluids. She denies any hematuria, or dysuria, she does have chronic urinary incontinence. She had 1 diarrheal episode last week but none since. She feels profoundly fatigued. No skin rash, or lesions. No fevers, or chills. Discharge Providers Provider Date of admission: 09/27/23 18:40 Discharge Date: 10/01/23 Primary care physician: Monie Santamaria RN Consults: 09/27/23 18:46 Consult to Cardio/Pulmonary Rehabilitation Routine Comment: Physician Instructions: Evaluate and treat 09/29/23 10:53 Consult to Physical Therapy Evaluate & Treat Comment: Physician Instructions: Evaluate and Treat Discharge provider: Burt Jeffery DO Summary Hospital Course Discharge Diagnosis: 1. Sepsis with acute kidney injury, tachypnea, lactic acidosis, and a source of presumed pneumonia. SOFA score 2. 2. Viral and possible secondary bacterial pneumonia, present on admission and improving. 3. Fluid responsive hypotension with sepsis, present on admission and resolved. 4. Acute kidney injury, present on admission and improving. 5. Lactic acidosis, present on admission and resolved. 6. Insulin-dependent diabetes mellitus 2, present on admission and active. 7. Hypertension, chronic and not active at admission. 8. Hyperlipidemia, present on admission and stable. 9. Lichen sclerosis, present on admission and stable. 10. Hypovolemic hyponatremia, present on admission and active. Hospital Course: 77 F with PMH of HTN, HLD who recently moved to assisted living who was admitted with sepsis with [place] with SOFA score of 2 based on cr of 2.6 on presentation. She had continued improvement with fluids and antibiotics. She had a recent parainfluenza infection, and this may have represented a secondary bacterial pneumonia which developed. She had slow improvement in symptoms, and was able to be discharged back to her assisted living after therapy evaluations and antibiotic and supportive therapies. She was discharged with another 5 days of cefdinir given medication interactions and penicillin allergy and improvement with ceftriaxone during her stay. Her kidney function improved to 1.3 from 2.6 on admission. Outpatient follow up with PCP is recommended as previously scheduled. No other changes to her home medications are recommended at discharge. Time Spent with Patient Time spent: Greater than 30 minutes Exam Vital Signs (past 8 hours): - 10/01/23 07:00 10/01/23 08:00 10/01/23 09:23 Temperature 97.8 F Pulse Rate 75 75 Respiratory Rate 18 Blood Pressure 131/60 131/60 Pulse Oximetry 94 94 Oxygen Delivery Method Room Air Oxygen Flow Rate 0 0 Oxygen Delivery Method Room Air Oxygen Flow Rate 0 Narrative Exam Narrative: NAD, alert and oriented. Fluent speech. Lungs are with expiratory wheezing but improved overall and with better air movement. Normal rate and effort. Heart is regular, no murmur gallop or rub. Abdomen is soft, non distended. Extremities are free of edema. Objective Labs 09/30/23 05:01 09/30/23 05:01 [facility] Medical History Secondhand smoke exposure Lichen sclerosus et atrophicus Microscopic hematuria Urge incontinence Hx of migraine headaches History of depression History of chronic urinary tract infection History of arthritis Peripheral neuropathy Depression Hyperlipidemia Fibromyalgia Hypertension Lower leg edema Diabetes Surgical History Hx of abdominal hysterectomy Hx of breast biopsy Hx of total knee replacement Hx of cholecystectomy Hx of appendectomy Family History Mother Cancer CVA (cerebral vascular accident) Hyperlipidemia Hypertension Father Hypertension Hyperlipidemia CAD (coronary artery disease) Sister Hyperlipidemia Hypertension Diabetes mellitus Multiple kidney stones Migraines Brother Hyperlipidemia Hypertension Migraines Eczema Social History marital status: number of children: 4 household members: none lives independently: Yes Smoking Status: Never smoker alcohol intake: current caffeine: Yes Type(s) of exercise: walking frequency: 3-4 times per week duration: 15-30 minutes/day Discharge Plan Discharge Plan Patient Disposition: Assisted Living Other facility: [facility] Provider Discharge Comment: 77 F admitted with weakness, possibly due sepsis from a superimposed bacterial pneumonia after viral illness. Now improved, ready for return home. Discharge orders & Medications Discharge Orders: Discharge (Order); Ordered 10/01/23 Ordered By: Burt Jeffery Prescriptions: New benzonatate 100 mg Capsule 100 mg PO TID PRN (Reason: Cough) Qty: 30 0RF cefdinir 300 mg capsule 300 mg PO BID 5 Days Qty: 10 0RF Continued duloxetine 20 mg capsule,delayed release(DR/EC) 20 mg PO DAILY quetiapine 25 mg tablet 25 mg PO BEDTIME propranolol 20 mg tablet 20 mg PO BEDTIME lisinopril 40 mg tablet 40 mg PO DAILY rosuvastatin 40 mg tablet 40 mg PO DAILY insulin glargine [Lantus Solostar U-100 Insulin] 100 unit/mL (3 mL) insulin pen 34 unit SUBCUT 2100 potassium chloride 10 mEq tablet extended release 10 meq PO Q OTHER DAY chlorthalidone 25 mg tablet 12.5 mg PO QAM amlodipine 10 mg tablet 10 mg PO DAILY fluoxetine 20 mg tablet 40 mg PO DAILY diclofenac sodium 75 mg tablet,delayed release (DR/EC) 75 mg PO BID furosemide 20 mg tablet 20 mg PO QAM clobetasol 0.05 % ointment 1 applic topical DAILY glipizide 5 mg tablet 5 mg PO BID Discontinued nitrofurantoin macrocrystal 100 mg capsule 100 mg PO BID scopolamine base [Transderm-Scop] 1 mg over 3 days Patch 3 Day 1 patch topical Q72H Qty: 4 0RF Follow up/Referrals: Monie Santamaria RN [Primary Care Provider] - Discharge Health Status Precautions: [place] and Droplet Diet/Activity/Treatments Diet: Diet as Tolerated and Carb-consistent/Diabetic Liquid consistency: Normal/Thin Food texture: Regular Activity: As tolerated, no restrictions Visit Report/Discharge Packet Instructions: Influenza Stand Alone Forms: Patient Portal/API, Stroke Signs & Symptoms Discharge Data Primary Care Provider: Monie Santamaria VTE Deep Vein Thrombosis/Pulmonary Embolism Present on Admission: No
[2023-10-01] MEDS: cefTRIAXone 1,000 MG in SODIUM CHLORIDE 0.9% 100 ML 200 MG IV (12:14)
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
== END 2023-10-01 13:30 | disposition home health service (06) | DRG 871 ==
LOC: ED 17:13 → AC 18:43
PROVIDERS: Admitting Provider Hospitalist; Emergency Provider Emergency Medicine; PCP Nurse Practitioner Family; Referring Provider Emergency Medicine; Visit Provider Hospitalist
DX: A41.9 Sepsis, unspecified organism (principal); J15.9 Unspecified bacterial pneumonia; E87.20 Acidosis, unspecified; N17.9 Acute kidney failure, unspecified; E87.1 Hypo-osmolality and hyponatremia; R65.20 Severe sepsis without septic shock; E11.9 Type 2 diabetes mellitus without complications; E78.5 Hyperlipidemia, unspecified; I10 Essential (primary) hypertension; Z79.4 Long term (current) use of insulin; Z79.84 Long term (current) use of oral hypoglycemic drugs
CPT/HCPCS: 36415; 71045; 80048; 80053; 82962; 83036; 83605; 83880; 84484; 85025; 85027; 85610; 87040; 87633; 94640; 97110; 97116; 97162; 97530; 99285; J0692; J0696; J1644; J1815; J2405

== ENCOUNTER 2023-10-03 16:42 | Inpatient (IN) | payer OTHER, SELFPAY ==
[2023-09-27 18:46] VITALS: BMI 41.6
[2023-10-03] VITALS (17 sets, daily range): BP systolic 118–129; BP diastolic 56–68; PULSE 72–82; RESP 15–28; TEMP 36.4; O2SAT 92–98; BMI 41.1
--- NOTE | 2023-10-03 17:20 | DI.RAD.S_ITS ---
PROCEDURE: XR CHEST 1V INDICATIONS: Shortness of breath TECHNIQUE: One view of the chest was acquired. COMPARISON: [facility], [facility], XR CHEST 1V, 09/27/2023, 16:35. [facility], [facility], XR CHEST 1V, 06/14/2023, 15:38. FINDINGS: Surgical changes and devices: None. Lungs and pleura: Lungs are clear. No pleural effusions or pneumothorax. Mediastinum: Mediastinal contours appear normal. Heart size is normal. Bones and chest wall: No suspicious bony lesions. Overlying soft tissues appear unremarkable. IMPRESSION: No acute cardiopulmonary abnormality is seen. Dictated by: Raghav Penn M.D. on 10/03/2023 at 17:58 Approved by: Raghav Penn M.D. on 10/03/2023 at 17:58
--- NOTE | 2023-10-03 17:23 | PC.NURSE ---
Pt came to ED with [facility] for recurrent worsening PNA. Pt was discharged sunday after inpatient stay for sepsis. But pt has not been able to take her antibiotics because the pharmacists would not dispense due to her penicillin allergy. Pt is a&ox4 and able to speak in full sentences without significant work of breathing or SOB. Pt states that she is experiencing increasing weakness, fatigue, and SOB. VS WNL and Pt on RA.
[2023-10-03 17:37] LABS: Add Manual Diff / Slide Review NO; Basophils Absolute Auto 100 /uL (0-100); Basophils Percent Auto 0.7 % (0-2); Eosinophils Absolute Auto 500 /uL (0-450); Eosinophils Percent Auto 2.2 % (2-4); Hematocrit 36.6 % (36-46); Hemoglobin 12.3 g/dL (12.0-16.0); Lymphocytes Absolute Auto 4900 /uL (1100-4500); Lymphocytes Percent Auto 23.6 % (25-40); Mean Corpuscular HGB Conc 33.7 % (30-36); Mean Corpuscular Hemoglobin 30.3 PG (26-34); Mean Corpuscular Volume 89.9 fL (80-100); Monocytes Absolute Auto 900 /uL (0-900); Monocytes Percent Auto 4.4 % (3-14); Neutrophils Absolute Auto 14400 /uL (1500-7000); Neutrophils Percent Auto 69.1 % (50-75); Platelet Count 257 X10^3/uL (150-400); Red Blood Cell Count 4.07 X10^6/uL (4.0-5.2); Red Cell Distribution Width 13.4 % (11.6-14.8); White Blood Cell Count 20.9 X10^3/uL (4.5-11.0)
[2023-10-03 17:38] LABS: Prothrombin Time 11.6 SECONDS (9.4-12.5)
[2023-10-03 18:08] LABS: Lactate (Lactic Acid) 1.8 mmol/L (0.7-2.1)
[2023-10-03 18:09] LABS: Alanine Aminotransferase 30 IU/L (<35); Albumin 3.6 g/dL (3.5-5.0); Albumin Globulin Ratio 1.2 (1.0-2.8); Alkaline Phosphatase 97 U/L (38-126); Aspartate Aminotransferase 22 IU/L (14-36); Bilirubin Total 0.8 mg/dL (0.2-1.3); Blood Urea Nitrogen 37 mg/dL (7-17); Calcium 8.9 mg/dL (8.4-10.2); Carbon Dioxide 32 mmol/L (22-32); Chloride 98 mmol/L (98-107); Estimated Glomerular Filt Rate 37 mL/min (>60); Globulin 3.1 g/dL (1.7-4.1); Glucose 260 mg/dL (80-110); HEMOLYSIS < 15 (0-50); Potassium 3.7 mmol/L (3.4-5.1); Sodium 133 mmol/L (137-145); Total Protein 6.7 g/dL (6.3-8.2)
[2023-10-03 18:20] LABS: NT-proBNP (BNP-Adult 18+) 138 pg/mL (<450); Troponin I < 0.012 ng/mL (0.01-0.034)
[2023-10-03 19:13] LABS: Appearance Urine UA CLEAR; Bilirubin Urine UA NEGATIVE (NEGATIVE); Color Urine UA YELLOW; Glucose Urine UA TRACE g/dL (Negative); Ketones Urine UA NEGATIVE (NEGATIVE); Leukocyte Esterase Urine UA NEGATIVE (NEGATIVE); Nitrite Urine UA NEGATIVE (Negative); Occult Blood Urine UA TRACE-INTACT (Negative); Protein Urine UA NEGATIVE (Negative); Specific Gravity Urine UA 1.015 (1.000-1.035); Urobilinogen Urine UA 0.2 E.U./dL (0.2)
[2023-10-03 19:20] LABS: Bacteria Urine Occasional (0-1); Culture Indicated Urine Cult Not Indicated; RBC Urine 0-1/HPF (0-5/HPF); Squamous Epithelial Cell Urine 0-1 /HPF (0-5/HPF); Urine Volume 10mL (spun); WBC Urine 0-1/HPF (0-5/HPF)
--- NOTE | 2023-10-03 19:24 | ED_ITS ---
HPI - General Adult General Chief complaint: Shortness of Breath/Dyspnea Stated complaint: Worsening Pain Time Seen by Provider: 10/03/23 17:44 Source: patient and EMS Mode of arrival: EMS Limitations: no limitations History of Present Illness HPI narrative: Patient is a 77-year-old female who arrives in the emergency department today for what the stated complaint was worsening pain however further evaluation it is more fatigue/weakness, fevers, malaise, shortness of breath. Patient was admitted to the hospital here at the end of last week. She spent a couple days. Was diagnosed with pneumonia. Received antibiotics. She states she actually was feeling much better at the time of her discharge. She was tolerating oral intake. Was able to get around with her walker. Was discharged home with cefdinir prescription. She states that she went to the pharmacy to crop picker the prescription however she states the pharmacist would not fill it because of her allergy to penicillin. Patient states that at the nursing facility where she stays they tried multiple attempts to contact provider in order to get her a new prescription but she has been off of all antibiotics for 3 days. She was feeling very well and seemed to be improving until yesterday when she states that she made a turn for the worse. Her breathing was worse. Fevers. Generalized malaise. She tried to walk to the dining facility today she had to stop multiple times because she was so short of breath. She denied chest pain. She states she was so weak at the [facility] facility that she could not even stand up out of her chair. She denies abdominal pain or nausea vomiting. Related Data Home Medications Medication Instructions Recorded Confirmed duloxetine 20 mg capsule,delayed 20 mg PO DAILY 06/15/23 10/04/23 release lisinopril 40 mg tablet 40 mg PO DAILY 06/15/23 10/04/23 propranolol 20 mg tablet 20 mg PO BEDTIME 06/15/23 10/04/23 quetiapine 25 mg tablet 25 mg PO BEDTIME 06/15/23 10/04/23 rosuvastatin 40 mg tablet 40 mg PO DAILY 06/15/23 10/04/23 insulin glargine 100 unit/mL (3 34 unit SUBCUT 2100 07/05/23 10/04/23 mL) subcutaneous pen (Lantus Solostar U-100 Insulin) potassium chloride 10 mEq 10 meq PO Q OTHER DAY 07/05/23 10/04/23 tablet,extended release amlodipine 10 mg tablet 10 mg PO DAILY 09/27/23 10/04/23 chlorthalidone 25 mg tablet 12.5 mg PO QAM 09/27/23 10/04/23 clobetasol 0.05 % topical ointment 1 applic topical DAILY 09/27/23 10/04/23 diclofenac sodium 75 mg 75 mg PO BID 09/27/23 10/04/23 tablet,delayed release fluoxetine 20 mg tablet 40 mg PO DAILY 09/27/23 10/04/23 furosemide 20 mg tablet 20 mg PO QAM 09/27/23 10/04/23 glipizide 5 mg tablet 5 mg PO BID 09/27/23 10/04/23 Previous Rx's Medication Instructions Recorded benzonatate 100 mg capsule 100 mg PO TID PRN Cough #30 caps 10/01/23 cefdinir 300 mg capsule 300 mg PO BID 5 days #10 caps 10/01/23 Allergies Allergy/AdvReac Type Severity Reaction Status Date / Time Penicillins Allergy Severe Anaphylaxis Verified 09/28/23 11:11 morphine AdvReac Nightmare Verified 08/09/23 17:09 Review of Systems Review of Systems ROS Unobtainable: All systems reviewed & are unremarkable except as noted in HPI and below Patient History Medical History Secondhand smoke exposure Lichen sclerosus et atrophicus Microscopic hematuria Urge incontinence Hx of migraine headaches History of depression History of chronic urinary tract infection History of arthritis Peripheral neuropathy Depression Hyperlipidemia Fibromyalgia Hypertension Lower leg edema Diabetes Surgical History Hx of abdominal hysterectomy Hx of breast biopsy Hx of total knee replacement Hx of cholecystectomy Hx of appendectomy Family History Mother Cancer CVA (cerebral vascular accident) Hyperlipidemia Hypertension Father Hypertension Hyperlipidemia CAD (coronary artery disease) Sister Hyperlipidemia Hypertension Diabetes mellitus Multiple kidney stones Migraines Brother Hyperlipidemia Hypertension Migraines Eczema Social History marital status: number of children: 4 household members: none lives independently: Yes Smoking Status: Never smoker alcohol intake: current caffeine: Yes Type(s) of exercise: walking frequency: 3-4 times per week duration: 15-30 minutes/day Smoking Status: Never smoker alcohol intake frequency: holidays/special occasions only Substance Use Type: does not use Exam Initial Vital Signs Initial Vital Signs: Vital Signs Pulse Rate 82 10/03/23 16:46 Pulse Oximetry 98 10/03/23 16:46 Oxygen Delivery Method Room Air 10/03/23 16:46 Const General: cooperative, comfortable and No ill appearing HENMT Head: normal to inspection and normocephalic Resp Effort & Inspection: cough, labored and tachypneic Auscultation: crackles Cardio Rate: regular rate Rhythm: regular rhythm GI Inspection: normal to inspection and non-distended Skin General: no rashes or lesions noted Neuro General: patient alert, patient awake, patient oriented x3 and moves all extremities Extrem General: normal to inspection and No capillary refill normal Scores GCS Zane coma scale eye opening: Spontaneous Zane coma scale verbal response: Orientated Zane coma scale motor response: Obey commands Zane coma scale total score: 15 Course Orders Ordered: ED Orders 10/03/23 21:17 CT angio chest PE protocol Stat 10/03/23 21:45 Strep Grp A by PCR Rapid Stat Throat Culture Stat Acetaminophen (Acetaminophen 325 Mg Tablet) 650 mg PO Q6H PRN PRN Reason: Fever/Mild Pain (1-3) Amlodipine Besylate (Amlodipine 5 Mg Tablet) 10 mg PO DAILY [facility] Azithromycin (Azithromycin 250 Mg Tablet) 250 mg PO DAILY [facility] Benzonatate (Benzonatate 100 Mg Capsule) 100 mg PO TID PRN PRN Reason: Cough Duloxetine HCl (Duloxetine 20 Mg Capsule) 20 mg PO DAILY [facility] Enoxaparin Sodium (Enoxaparin 40 Mg/0.4 Ml Syringe) 40 mg SUBCUT DAILY [facility] Glipizide (Glipizide 5 Mg Tablet) 5 mg PO BID [facility] Sodium Chloride (Normal Saline 0.9%) 500 mls @ 21 mls/hr IV CONT YVONNE Last Admin: 10/04/23 03:45 Dose: 21 mls/hr Documented By: JAYNA Dextrose ([id number]) 100 mls @ 1,200 mls/hr IV PRN PRN PRN Reason: Hypoglycemia Ceftriaxone Sodium 1,000 mg/ (Sodium Chloride) 100 mls @ 200 mls/hr IV Q24H [facility] Insulin Glargine (Insulin Glargine 100 Unit/Ml 3ml Pen) 34 unit SUBCUT 2100 [facility] Insulin Human Lispro (Insulin Lispro 100 Unit/Ml 3ml Vial) 0 unit SUBCUT ACHS YVONNE; Protocol Naloxone HCl (Naloxone 0.4 Mg/Ml Vial) 0.2 mg IV Q2MIN PRN PRN Reason: Opiate Reversal Non-Formulary Medication (Clobetasol) 1 applictn TOP DAILY YVONNE Non-Formulary Medication (Fluoxetine) 40 mg PO DAILY YVONNE Non-Formulary Medication (Rosuvastatin) 40 mg PO DAILY YVONNE Propranolol HCl (Propranolol 10 Mg Tablet) 20 mg PO BEDTIME YVONNE Quetiapine Fumarate (Quetiapine 25 Mg Tablet) 25 mg PO BEDTIME YVONNE Discontinued Medications Sodium Chloride (Normal Saline 0.9%) 1,000 mls @ 1,000 mls/hr IV BOLUS ONE Stop: 10/03/23 20:23 Last Infusion: 10/03/23 20:41 Dose: Infused Documented By: Admin: 10/03/23 19:41 Dose: 1,000 mls/hr Documented By: GUNNAR Ceftriaxone Sodium 1,000 mg/ (Sodium Chloride) 100 mls @ 200 mls/hr IV NOW ONE Stop: 10/03/23 23:18 Last Infusion: 10/04/23 00:25 Dose: Infused Documented By: Admin: 10/03/23 23:55 Dose: 200 mls/hr Documented By: GUNNAR Azithromycin 500 mg/ Dextrose 250 mls @ 250 mls/hr IV NOW ONE Stop: 10/03/23 23:19 Last Infusion: 10/04/23 02:54 Dose: Infused Documented By: Infusion: 10/04/23 00:39 Dose: 250 mls/hr Documented By: Admin: 10/04/23 00:17 Dose: 250 mls/hr Documented By: GUNNAR Ondansetron HCl (Ondansetron 4 Mg/2 Ml Inj) 4 mg IV NOW ONE Stop: 10/03/23 19:25 Last Admin: 10/03/23 19:41 Dose: 4 mg Documented By: GUNNAR Ondansetron HCl (Ondansetron 4 Mg/2 Ml Inj) 4 mg IV Q8HR PRN PRN Reason: Nausea And Vomiting Last Admin: 10/04/23 02:57 Dose: 4 mg Documented By: JAYNA Vital Signs Vital signs: Vital Signs - 8 hr 10/03/23 21:00 10/03/23 21:41 10/03/23 22:00 Pulse Rate 76 82 75 Respiratory Rate 22 28 H 20 Blood Pressure 129/68 Pulse Oximetry 93 93 94 Oxygen Delivery Method Room Air Room Air 10/03/23 22:30 10/03/23 23:00 Pulse Rate 74 76 Respiratory Rate 18 21 Blood Pressure Pulse Oximetry 93 92 Oxygen Delivery Method Room Air Medical Decision Making Medical Records Medical records reviewed: Yes I reviewed the patient's medical records. Lab Data Lab results reviewed: Yes I reviewed the patient's lab results. 10/03/23 17:00 10/03/23 17:00 Labs: Lab Results 10/03/23 10/03/23 10/03/23 Range/Units 17:00 17:30 18:45 WBC 20.9 H (4.5-11.0) X10^3/uL RBC 4.07 (4.0-5.2) X10^6/uL Hgb 12.3 (12.0-16.0) g/dL Hct 36.6 (36-46) % MCV 89.9 (80-100) fL MCH 30.3 (26-34) PG MCHC 33.7 (30-36) % RDW 13.4 (11.6-14.8) % Plt Count 257 (150-400) X10^3/uL Neut % (Auto) 69.1 (50-75) % Lymph % (Auto) 23.6 L (25-40) % [place] % (Auto) 4.4 (3-14) % Eos % (Auto) 2.2 (2-4) % Baso % (Auto) 0.7 (0-2) % Neut # (Auto) 99718 H (9854-7320) /uL Lymph # (Auto) 4900 H (0018-6658) /uL [place] # (Auto) 900 (0-900) /uL Eos # (Auto) 500 H (0-450) /uL Baso # (Auto) 100 (0-100) /uL PT 11.6 (9.4-12.5) SECONDS INR 1.0 (0.9-1.3) Sodium 133 L (137-145) mmol/L Potassium 3.7 (3.4-5.1) mmol/L Chloride 98 (98-107) mmol/L Carbon Dioxide 32 (22-32) mmol/L BUN 37 H (7-17) mg/dL Creatinine 1.48 H (0.52-1.04) mg/dL Estimated GFR 37 L (>60) mL/min BUN/Creatinine Ratio 25.0 H (6-22) Glucose 260 H (80-110) mg/dL Lactate 1.8 (0.7-2.1) mmol/L Calcium 8.9 (8.4-10.2) mg/dL Total Bilirubin 0.8 (0.2-1.3) mg/dL AST 22 (14-36) IU/L ALT 30 (<35) IU/L Alkaline Phosphatase 97 (38-126) U/L Troponin I < 0.012 (0.01-0.034) ng/mL NT-Pro-B Natriuret Pep 138 (<450) pg/mL Total Protein 6.7 (6.3-8.2) g/dL Albumin 3.6 (3.5-5.0) g/dL Globulin 3.1 (1.7-4.1) g/dL Albumin/Globulin Ratio 1.2 (1.0-2.8) Urine Color Yellow Urine Appearance Clear Urine pH 5.0 (4.5-8.0) Ur Specific [place] 1.015 (1.000-1.035) Urine Protein Negative (Negative) Urine Glucose (UA) Trace H (Negative) g/dL Urine Ketones Negative (NEGATIVE) Urine Occult Blood Trace-intact (Negative) Urine Nitrate Negative (Negative) Urine Bilirubin Negative (NEGATIVE) Urine Urobilinogen 0.2 (0.2) E.U./dL Ur Leukocyte Esterase Negative (NEGATIVE) Urine RBC 0-1/hpf (0-5/HPF) Urine WBC 0-1/hpf (0-5/HPF) Ur Squamous Epith Cells 0-1 /hpf (0-5/HPF) Urine Bacteria Occasional (0-1) (None) Ur Culture Indicated? Cult not indicated Vol Urine Centrifuged 10ml (spun) Chlamy pneumoniae PCR (Not Detect) Adenovirus (PCR) (Not Detect) B.parapertussis DNA PCR (Not Detecte) Coronavirus OC43 (PCR) (Not Detect) Coronavirus HKU1 (PCR) (Not Detect) Coronavirus 229E (PCR) (Not Detect) SARS-CoV-2 (PCR) (Not Detecte) Coronavirus NL63 (PCR) (Not Detect) Monoscreen Negative (Negative) Human Metapneumovir PCR (Not Detect) Influenza Type A (PCR) (Not Detect) Influenza Type B (PCR) (Not Detect) M. pneumoniae (PCR) (Not Detect) Parainfluenza 1 (PCR) (Not Detect) Parainfluenza 2 (PCR) (Not Detect) Parainfluenza 3 (PCR) (Not Detect) Parainfluenza 4 (PCR) (Not Detect) RSV (PCR) (Not Detect) Entero/Rhino (PCR) (Not Detect) Group A Strep (PCR) (Negative) 10/03/23 10/03/23 Range/Units 19:57 21:45 WBC (4.5-11.0) X10^3/uL RBC (4.0-5.2) X10^6/uL Hgb (12.0-16.0) g/dL Hct (36-46) % MCV (80-100) fL MCH (26-34) PG MCHC (30-36) % RDW (11.6-14.8) % Plt Count (150-400) X10^3/uL Neut % (Auto) (50-75) % Lymph % (Auto) (25-40) % [place] % (Auto) (3-14) % Eos % (Auto) (2-4) % Baso % (Auto) (0-2) % Neut # (Auto) (1244-0944) /uL Lymph # (Auto) (4707-8541) /uL [place] # (Auto) (0-900) /uL Eos # (Auto) (0-450) /uL Baso # (Auto) (0-100) /uL PT (9.4-12.5) SECONDS INR (0.9-1.3) Sodium (137-145) mmol/L Potassium (3.4-5.1) mmol/L Chloride (98-107) mmol/L Carbon Dioxide (22-32) mmol/L BUN (7-17) mg/dL Creatinine (0.52-1.04) mg/dL Estimated GFR (>60) mL/min BUN/Creatinine Ratio (6-22) Glucose (80-110) mg/dL Lactate (0.7-2.1) mmol/L Calcium (8.4-10.2) mg/dL Total Bilirubin (0.2-1.3) mg/dL AST (14-36) IU/L ALT (<35) IU/L Alkaline Phosphatase (38-126) U/L Troponin I (0.01-0.034) ng/mL NT-Pro-B Natriuret Pep (<450) pg/mL Total Protein (6.3-8.2) g/dL Albumin (3.5-5.0) g/dL Globulin (1.7-4.1) g/dL Albumin/Globulin Ratio (1.0-2.8) Urine Color Urine Appearance Urine pH (4.5-8.0) Ur Specific [place] (1.000-1.035) Urine Protein (Negative) Urine Glucose (UA) (Negative) g/dL Urine Ketones (NEGATIVE) Urine Occult Blood (Negative) Urine Nitrate (Negative) Urine Bilirubin (NEGATIVE) Urine Urobilinogen (0.2) E.U./dL Ur Leukocyte Esterase (NEGATIVE) Urine RBC (0-5/HPF) Urine WBC (0-5/HPF) Ur Squamous Epith Cells (0-5/HPF) Urine Bacteria (None) Ur Culture Indicated? Vol Urine Centrifuged Chlamy pneumoniae PCR Not detected (Not Detect) Adenovirus (PCR) Not detected (Not Detect) B.parapertussis DNA PCR Not detected (Not Detecte) Coronavirus OC43 (PCR) Not detected (Not Detect) Coronavirus HKU1 (PCR) Not detected (Not Detect) Coronavirus 229E (PCR) Not detected (Not Detect) SARS-CoV-2 (PCR) Not detected (Not Detecte) Coronavirus NL63 (PCR) Not detected (Not Detect) Monoscreen (Negative) Human Metapneumovir PCR Not detected (Not Detect) Influenza Type A (PCR) Not detected (Not Detect) Influenza Type B (PCR) Not detected (Not Detect) M. pneumoniae (PCR) Not detected (Not Detect) Parainfluenza 1 (PCR) Not detected (Not Detect) Parainfluenza 2 (PCR) Not detected (Not Detect) Parainfluenza 3 (PCR) Not detected (Not Detect) Parainfluenza 4 (PCR) Not detected (Not Detect) RSV (PCR) Not detected (Not Detect) Entero/Rhino (PCR) Not detected (Not Detect) Group A Strep (PCR) Negative (Negative) Imaging Data Chest x-ray: Radiologist's Impression: PROCEDURE: XR CHEST 1V INDICATIONS: Shortness of breath TECHNIQUE: One view of the chest was acquired. COMPARISON: [facility], CR, XR CHEST 1V, 09/27/2023, 16:35. [facility], CR, XR CHEST 1V, 06/14/2023, 15:38. FINDINGS: Surgical changes and devices: None. Lungs and pleura: Lungs are clear. No pleural effusions or pneumothorax. Mediastinum: Mediastinal contours appear normal. Heart size is normal. Bones and chest wall: No suspicious bony lesions. Overlying soft tissues appear unremarkable. IMPRESSION: No acute cardiopulmonary abnormality is seen. CTA - brain/neck: Radiologist's Impression: PROCEDURE: CT ANGIO CHEST PE PROTOCOL INDICATIONS: Chest pain, shortness of breath, tachycardia TECHNIQUE: After the administration of intravenous contrast, 2 mm thick sections acquired from the pulmonary apices to the posterior costophrenic angles. 3-dimensional maximum intensity projection (MIP) coronal and sagittal reformats were then acquired through the thorax. For radiation dose reduction, the following was used: automated exposure control, adjustment of mA and/or kV according to patient size. COMPARISON: [facility], CT, CT ANGIO CHEST PE PROTOCOL, 07/04/2023, 20:40. FINDINGS: Image quality: Diagnostic. Pulmonary arteries: Pulmonary arteries are normal in size, and demonstrate no intraluminal filling defects to suggest central pulmonary embolism. Lower Neck: No enlarged lymph nodes. Thyroid: Enlarged right lobe of the thyroid. Axillae: No enlarged lymph nodes. Chest Wall: Unremarkable. Bones: Mild degenerative changes of the spine. Lungs and Pleura: No pneumothorax or pleural effusions. No consolidation or suspicious nodules. Heart: Heart size is normal. Moderate coronary artery calcifications. No pericardial effusion. Thoracic Vessels: No aortic aneurysm. Atherosclerotic vascular calcifications. Mediastinum and Emilie: No enlarged lymph nodes. Esophagus: No wall thickening. Small hiatal hernia. Upper Abdomen: Visualized upper abdomen solid organs and bowel loops appear normal. IMPRESSION: No pulmonary embolus. No acute cardiopulmonary process. Enlarged right thyroid lobe without distinct nodule. Consider thyroid ultrasound for further evaluation as clinically indicated. ECG Data Attestation: I personally reviewed and interpreted this ECG as follows: Interpretation: Sinus rhythm Ventricular rate 90 Normal axis Occasional PACs No ST T wave changes MDM Narrative Medical decision making narrative: Patient was diagnosed with pneumonia of the last time that she was here they hospital the end of last week and was unable to crop picker the prescriptions due to an issue with the pharmacy. She returns today dyspneic on exertion, fatigue, tachypneic, no retractions. She has not hypoxic. Does have a leukocytosis. Her chest x-ray and CTA of the chest showed no acute pathology which does not necessarily correspond to how she appears clinically. Clinically she would have pneumonia with a cough and a leukocytosis and coarse breath sounds. I do not have another source of infection she has not having any abdominal pain or urinary symptoms or skin changes. Patient is so fatigued she has difficulty even sitting up in bed. I did discuss the case with Dr. Gastelum hospitalist on- call who will admit for further evaluation and treatment. Discussed the need for admission with the patient. She expressed understanding and agreement as well. Discharge Plan Departure Patient Disposition: Admitted As Inpatient Clinical Impression: Pneumonia, Leukocytosis Admit Date/Time: 10/03/23 23:20 Admit Provider: Sanket Gastelum
[2023-10-03] MEDS: ONDANSETRON 4 MG/2 ML INJ IV (19:41)
[2023-10-03] MEDS: SODIUM CHLORIDE 0.9% 1,000 ML 1000 ML IV (19:41)
[2023-10-03 20:53] LABS: Adenovirus Not Detected (Not Detect); B. parapertussis Not Detected (Not Detecte); Bordetella pertussis Not Detected (Not Detect); Chlamydophila pneumoniae Not Detected (Not Detect); Coronavirus 229E Not Detected (Not Detect); Coronavirus HKU1 Not Detected (Not Detect); Coronavirus NL 63 Not Detected (Not Detect); Coronavirus OC43 Not Detected (Not Detect); Human Metapneumovirus Not Detected (Not Detect); Human Rhinovirus/Enterovirus Not Detected (Not Detect); Influenza A Not Detected (Not Detect); Influenza B Not Detected (Not Detect); Mycoplasma pneumoniae Not Detected (Not Detect); Parainfluenza Virus 1 Not Detected (Not Detect); Parainfluenza Virus 2 Not Detected (Not Detect); Parainfluenza Virus 3 Not Detected (Not Detect); Parainfluenza Virus 4 Not Detected (Not Detect); Respiratory Syncytial Virus Not Detected (Not Detect); SARS- CoV-2 Not Detected (Not Detecte)
--- NOTE | 2023-10-03 21:17 | DI.CT.S_ITS ---
PROCEDURE: CT ANGIO CHEST PE PROTOCOL INDICATIONS: Chest pain, shortness of breath, tachycardia TECHNIQUE: After the administration of intravenous contrast, 2 mm thick sections acquired from the pulmonary apices to the posterior costophrenic angles. 3-dimensional maximum intensity projection (MIP) coronal and sagittal reformats were then acquired through the thorax. For radiation dose reduction, the following was used: automated exposure control, adjustment of mA and/or kV according to patient size. COMPARISON: [facility], CT, CT ANGIO CHEST PE PROTOCOL, 07/04/2023, 20:40. FINDINGS: Image quality: Diagnostic. Pulmonary arteries: Pulmonary arteries are normal in size, and demonstrate no intraluminal filling defects to suggest central pulmonary embolism. Lower Neck: No enlarged lymph nodes. Thyroid: Enlarged right lobe of the thyroid. Axillae: No enlarged lymph nodes. Chest Wall: Unremarkable. Bones: Mild degenerative changes of the spine. Lungs and Pleura: No pneumothorax or pleural effusions. No consolidation or suspicious nodules. Heart: Heart size is normal. Moderate coronary artery calcifications. No pericardial effusion. Thoracic Vessels: No aortic aneurysm. Atherosclerotic vascular calcifications. Mediastinum and Emilie: No enlarged lymph nodes. Esophagus: No wall thickening. Small hiatal hernia. Upper Abdomen: Visualized upper abdomen solid organs and bowel loops appear normal. IMPRESSION: No pulmonary embolus. No acute cardiopulmonary process. Enlarged right thyroid lobe without distinct nodule. Consider thyroid ultrasound for further evaluation as clinically indicated. Dictated by: Jerome Eugene M.D. on 10/03/2023 at 22:14 Approved by: Jerome Eugene M.D. on 10/03/2023 at 22:18
[2023-10-03 21:30] LABS: Monotest Negative (Negative)
[2023-10-03 22:25] LABS: Strep Grp A by PCR Rapid Negative (Negative)
[2023-10-03] MEDS: cefTRIAXone 1,000 MG in SODIUM CHLORIDE 0.9% 100 ML 200 MG IV (23:55)
[2023-10-04] VITALS (12 sets, daily range): BP systolic 95–148; BP diastolic 45–67; PULSE 77–85; RESP 14–17; TEMP 36.2–37.4; O2SAT 93–100; BMI 43.3
[2023-10-04] MEDS: AZITHROMYCIN 500 MG in DEXTROSE 5% IN WATER 250 ML 250 MG IV (00:17)
--- NOTE | 2023-10-04 01:43 | PC.NURSE ---
Pt. admitted to room 214, asked about her home meds. She started crying states you're stressing me asking all those questions. Stopped verifying her home meds. Will monitor.
[2023-10-04] MEDS: ONDANSETRON 4 MG/2 ML INJ IV ×3 (02:57→14:36)
[2023-10-04] MEDS: SODIUM CHLORIDE 0.9% 500 ML 21 ML IV (03:45)
--- NOTE | 2023-10-04 03:58 | PC.NURSE ---
Snow catheter that was inserted in ER was leaking. Called Dr. Gastelum order to discontinue snow catheter done catheter was intact. Also notified that she's a difficult IV start ordered to KVO IVF of normal saline. All orders are implemented, C/O nausea 4 mg. of Zofran admin. Will cont. POC & monitor.
--- NOTE | 2023-10-04 04:43 | PM.HP.1 ---
History of Present Illness History of Present Illness Date Patient Seen: 10/04/23 Time Patient Seen: 03:15 Chief complaint: Worsening Pain Narrative: 77 years old female with a past medical history of hypertension, diabetes mellitus insulin-dependent, depression, hypertension, fibromyalgia, urinary tract infection and recent hospitalization for respiratory failure with parainfluenza infection complicated by sepsis with acute kidney injury was brought back to emergency room for worsening shortness of breath with increasing fatigue and cough that is productive with yellow-greenish sputum and fever episodes. Apparently post discharge, pharmacy had declined to fill the oral cephalosporin due to patient's allergy to penicillin and reports symptoms have been worsening especially the respiratory symptoms for the past few days with generalized fatigue. Does have chest pain with deep inspiration and with cough. No palpitation dizziness or loss of consciousness. Did have constipation but with medication and had episode of loose stools earlier today. Denies any abdominal pain. No dysuria. Subsequent workup in the ED showed a white count of 20.9 with a BUN of 37 and a creatinine of 1.48. CTA was negative for pulmonary embolism and no acute process. Given the persistence of the bumps in the setting of leukocytosis/fever, patient received a dose of IV Rocephin and Zithromax in the emergency room with nebulizers and subsequently admitted for further evaluation [facility] Medical History Secondhand smoke exposure Lichen sclerosus et atrophicus Microscopic hematuria Urge incontinence Hx of migraine headaches History of depression History of chronic urinary tract infection History of arthritis Peripheral neuropathy Depression Hyperlipidemia Fibromyalgia Hypertension Lower leg edema Diabetes Surgical History Hx of abdominal hysterectomy Hx of breast biopsy Hx of total knee replacement Hx of cholecystectomy Hx of appendectomy Family History Mother Cancer CVA (cerebral vascular accident) Hyperlipidemia Hypertension Father Hypertension Hyperlipidemia CAD (coronary artery disease) Sister Hyperlipidemia Hypertension Diabetes mellitus Multiple kidney stones Migraines Brother Hyperlipidemia Hypertension Migraines Eczema Social History marital status: number of children: 4 household members: none lives independently: Yes Smoking Status: Never smoker alcohol intake: current caffeine: Yes Type(s) of exercise: walking frequency: 3-4 times per week duration: 15-30 minutes/day Meds Home Medications and Allergies Home Medications Medication Instructions Recorded Confirmed Type duloxetine 20 mg capsule,delayed 20 mg PO DAILY 06/15/23 10/04/23 History release lisinopril 40 mg tablet 40 mg PO DAILY 06/15/23 10/04/23 History propranolol 20 mg tablet 20 mg PO BEDTIME 06/15/23 10/04/23 History quetiapine 25 mg tablet 25 mg PO BEDTIME 06/15/23 10/04/23 History rosuvastatin 40 mg tablet 40 mg PO DAILY 06/15/23 10/04/23 History insulin glargine 100 unit/mL (3 34 unit SUBCUT 2100 07/05/23 10/04/23 History mL) subcutaneous pen (Lantus Solostar U-100 Insulin) potassium chloride 10 mEq 10 meq PO Q OTHER DAY 07/05/23 10/04/23 History tablet,extended release amlodipine 10 mg tablet 10 mg PO DAILY 09/27/23 10/04/23 History chlorthalidone 25 mg tablet 12.5 mg PO QAM 09/27/23 10/04/23 History clobetasol 0.05 % topical ointment 1 applic topical DAILY 09/27/23 10/04/23 History diclofenac sodium 75 mg 75 mg PO BID 09/27/23 10/04/23 History tablet,delayed release fluoxetine 20 mg tablet 40 mg PO DAILY 09/27/23 10/04/23 History furosemide 20 mg tablet 20 mg PO QAM 09/27/23 10/04/23 History glipizide 5 mg tablet 5 mg PO BID 09/27/23 10/04/23 History benzonatate 100 mg capsule 100 mg PO TID PRN Cough #30 caps 10/01/23 10/04/23 Rx cefdinir 300 mg capsule 300 mg PO BID 5 days #10 caps 10/01/23 10/04/23 Rx Allergies Allergy/AdvReac Type Severity Reaction Status Date / Time Penicillins Allergy Severe Anaphylaxis Verified 09/28/23 11:11 morphine AdvReac Nightmare Verified 08/09/23 17:09 Review of Systems Review of Systems Narrative: A 12 point review of systems negative unless otherwise stated in the history present illness Exam Vital Signs (past 8 hours): - 10/03/23 21:00 10/03/23 21:41 10/03/23 22:00 Temperature Pulse Rate 76 82 75 Respiratory Rate 22 28 H 20 Blood Pressure 129/68 Pulse Oximetry 93 93 94 Oxygen Delivery Method Room Air Room Air Oxygen Flow Rate 10/03/23 22:30 10/03/23 23:00 10/03/23 23:30 Temperature Pulse Rate 74 76 79 Respiratory Rate 18 21 17 Blood Pressure Pulse Oximetry 93 92 92 Oxygen Delivery Method Room Air Room Air Oxygen Flow Rate 10/04/23 00:00 10/04/23 00:27 10/04/23 01:50 Temperature 97.9 F Pulse Rate 78 80 Respiratory Rate 17 16 Blood Pressure 134/67 135/49 L Pulse Oximetry 96 93 96 Oxygen Delivery Method Room Air Room Air Oxygen Flow Rate 0 Oxygen Delivery Method Room Air Oxygen Flow Rate 0 Narrative Exam Narrative: Patient appears to be short of breath. Lungs lungs are diminished bilaterally in the mid lung region and at the base S1-S2 heard tachycardic Objective Labs 10/03/23 17:00 10/03/23 17:00 Labs: Laboratory Results - last 24 hr 10/03/23 10/03/23 10/03/23 17:00 17:30 18:45 WBC 20.9 H RBC 4.07 Hgb 12.3 Hct 36.6 MCV 89.9 MCH 30.3 MCHC 33.7 RDW 13.4 Plt Count 257 Neut % (Auto) 69.1 Lymph % (Auto) 23.[address] [place] % (Auto) 4.4 Eos % (Auto) 2.2 Baso % (Auto) 0.7 Neut # (Auto) 43084 H Lymph # (Auto) [address] [facility] [facility] # (Auto) 900 Eos # (Auto) 500 H Baso # (Auto) 100 PT 11.6 INR 1.0 Sodium 133 L Potassium 3.7 Chloride 98 Carbon Dioxide 32 BUN 37 H Creatinine 1.48 H Estimated GFR 37 L BUN/Creatinine Ratio 25.0 H Glucose 260 H Lactate 1.8 Calcium 8.9 Total Bilirubin 0.8 AST 22 ALT 30 Alkaline Phosphatase 97 Troponin I < 0.012 NT-Pro-B Natriuret Pep 138 Total Protein 6.7 Albumin 3.6 Globulin 3.1 Albumin/Globulin Ratio 1.2 Urine Color Yellow Urine Appearance Clear Urine pH 5.0 Ur Specific [place] 1.015 Urine Protein Negative Urine Glucose (UA) Trace H Urine Ketones Negative Urine Occult Blood Trace-intact Urine Nitrate Negative Urine Bilirubin Negative Urine Urobilinogen 0.2 Ur Leukocyte Esterase Negative Urine RBC 0-1/hpf Urine WBC 0-1/hpf Ur Squamous Epith Cells 0-1 /hpf Urine Bacteria Occasional (0-1) Ur Culture Indicated? Cult not indicated Vol Urine Centrifuged 10ml (spun) Chlamy pneumoniae PCR Adenovirus (PCR) B.parapertussis DNA PCR Coronavirus OC43 (PCR) Coronavirus HKU1 (PCR) Coronavirus 229E (PCR) SARS-CoV-2 (PCR) Coronavirus NL63 (PCR) Monoscreen Negative Human Metapneumovir PCR Influenza Type A (PCR) Influenza Type B (PCR) M. pneumoniae (PCR) Parainfluenza 1 (PCR) Parainfluenza 2 (PCR) Parainfluenza 3 (PCR) Parainfluenza 4 (PCR) RSV (PCR) Entero/Rhino (PCR) Group A Strep (PCR) 10/03/23 10/03/23 19:57 21:45 WBC RBC Hgb Hct MCV MCH MCHC RDW Plt Count Neut % (Auto) Lymph % (Auto) [facility] % (Auto) Eos % (Auto) Baso % (Auto) Neut # (Auto) Lymph # (Auto) [facility] # (Auto) Eos # (Auto) Baso # (Auto) PT INR Sodium Potassium Chloride Carbon Dioxide BUN Creatinine Estimated GFR BUN/Creatinine Ratio Glucose Lactate Calcium Total Bilirubin AST ALT Alkaline Phosphatase Troponin I NT-Pro-B Natriuret Pep Total Protein Albumin Globulin Albumin/Globulin Ratio Urine Color Urine Appearance Urine pH Ur Specific [place] Urine Protein Urine Glucose (UA) Urine Ketones Urine Occult Blood Urine Nitrate Urine Bilirubin Urine Urobilinogen Ur Leukocyte Esterase Urine RBC Urine WBC Ur Squamous Epith Cells Urine Bacteria Ur Culture Indicated? Vol Urine Centrifuged Chlamy pneumoniae PCR Not detected Adenovirus (PCR) Not detected B.parapertussis DNA PCR Not detected Coronavirus OC43 (PCR) Not detected Coronavirus HKU1 (PCR) Not detected Coronavirus 229E (PCR) Not detected SARS-CoV-2 (PCR) Not detected Coronavirus NL63 (PCR) Not detected Monoscreen Human Metapneumovir PCR Not detected Influenza Type A (PCR) Not detected Influenza Type B (PCR) Not detected M. pneumoniae (PCR) Not detected Parainfluenza 1 (PCR) Not detected Parainfluenza 2 (PCR) Not detected Parainfluenza 3 (PCR) Not detected Parainfluenza 4 (PCR) Not detected RSV (PCR) Not detected Entero/Rhino (PCR) Not detected Group A Strep (PCR) Negative Assessment & Plan Assessment & Plan narrative: 77 years old female with a past medical history of hypertension, diabetes mellitus insulin-dependent, depression, hypertension, fibromyalgia, urinary tract infection and recent hospitalization for respiratory failure with parainfluenza infection complicated by sepsis with acute kidney injury was brought back to emergency room for worsening shortness of breath with increasing fatigue and cough that is productive with yellow-greenish sputum and fever episodes. Apparently post discharge, pharmacy had declined to fill the oral cephalosporin due to patient's allergy to penicillin and reports symptoms have been worsening especially the respiratory symptoms for the past few days with generalized fatigue. Does have chest pain with deep inspiration and with cough. No palpitation dizziness or loss of consciousness. Did have constipation but with medication and had episode of loose stools earlier today. Denies any abdominal pain. No dysuria. Subsequent workup in the ED showed a white count of 20.9 with a BUN of 37 and a creatinine of 1.48. CTA was negative for pulmonary embolism and no acute process. Given the persistence of the bumps in the setting of leukocytosis/fever, patient received a dose of IV Rocephin and Zithromax in the emergency room with nebulizers and subsequently admitted for further evaluation 1. Dyspnea with cough and concerns for persistent symptoms/acute bronchitis/early pneumonia. Did receive a dose of IV Rocephin and Zithromax in the emergency room. Continue oxygen supplementation with nebulizers as needed and monitor closely for now Monitor on telemetry and check an echocardiogram to rule out a cardiac cause 2 hypertension. Resume the home amlodipine/propranolol and watch the blood pressure closely. Hold the lisinopril/chlorthalidone/furosemide due to renal dysfunction and the recent use of contrast 3 depression resume the home fluoxetine and trend the blood pressure closely 4 diabetes mellitus type 2 resume the home glipizide with Lantus and monitor blood sugar ACHS with insulin sliding scale 5 acute kidney injury on chronic kidney disease. Avoid NSAIDs including the home diclofenac and hold off on the OSVALDO inhibitor/diuretics for now. Trend renal function closely 6 anxiety. Resume the home Seroquel 7. DVT prophylaxis will be with Lovenox For now patient is a full code. Patient is admitted under observation status Patient was evaluated with help of a communication device. Provider is located remotely in [facility]. Time is 10 minutes
[2023-10-04] MEDS: glipiZIDE 5 MG TABLET PO ×2 (07:11→17:13)
[2023-10-04] MEDS: FLUoxetine 20 MG CAPSULE 40 MG PO (09:01)
[2023-10-04] MEDS: INSULIN LISPRO 100 UNIT/ML 3ML VIAL SUBCUT ×4 (09:01→20:36)
[2023-10-04] MEDS: AMLODIPINE 5 MG TABLET 10 MG PO (09:01)
[2023-10-04] MEDS: DULOXETINE 20 MG CAPSULE PO (09:01)
[2023-10-04] MEDS: ENOXAPARIN 40 MG/0.4 ML SYRINGE SUBCUT ×2 (09:03→20:27)
[2023-10-04] MEDS: ACETAMINOPHEN 325 MG TABLET 650 MG PO ×2 (09:04→17:14)
--- NOTE | 2023-10-04 09:38 | P.HP_ITS ---
History of Present Illness History of Present Illness Chief complaint: Worsening Pain Narrative: From night provider: 77 years old female with a past medical history of hypertension, diabetes mellitus insulin-dependent, depression, hypertension, fibromyalgia, urinary tract infection and recent hospitalization for respiratory failure with parainfluenza infection complicated by sepsis with acute kidney injury was brought back to emergency room for worsening shortness of breath with increasing fatigue and cough that is productive with yellow-greenish sputum and fever episodes. Apparently post discharge, pharmacy had declined to fill the oral cephalosporin due to patient's allergy to penicillin and reports symptoms have been worsening especially the respiratory symptoms for the past few days with generalized fatigue. Does have chest pain with deep inspiration and with cough. No palpitation dizziness or loss of consciousness. Did have constipation but with medication and had episode of loose stools earlier today. Denies any abdominal pain. No dysuria. Subsequent workup in the ED showed a white count of 20.9 with a BUN of 37 and a creatinine of 1.48. CTA was negative for pulmonary embolism and no acute process. Given the persistence of the bumps in the setting of leukocytosis/fever, patient received a dose of IV Rocephin and Zithromax in the emergency room with nebulizers and subsequently admitted for further evaluation [facility] Medical History Secondhand smoke exposure Lichen sclerosus et atrophicus Microscopic hematuria Urge incontinence Hx of migraine headaches History of depression History of chronic urinary tract infection History of arthritis Peripheral neuropathy Depression Hyperlipidemia Fibromyalgia Hypertension Lower leg edema Diabetes Surgical History Hx of abdominal hysterectomy Hx of breast biopsy Hx of total knee replacement Hx of cholecystectomy Hx of appendectomy Family History Mother Cancer CVA (cerebral vascular accident) Hyperlipidemia Hypertension Father Hypertension Hyperlipidemia CAD (coronary artery disease) Sister Hyperlipidemia Hypertension Diabetes mellitus Multiple kidney stones Migraines Brother Hyperlipidemia Hypertension Migraines Eczema Social History marital status: number of children: 4 household members: none lives independently: Yes Smoking Status: Never smoker alcohol intake: current caffeine: Yes Type(s) of exercise: walking frequency: 3-4 times per week duration: 15-30 minutes/day Meds Home Medications and Allergies Home Medications Medication Instructions Recorded Confirmed Type duloxetine 20 mg capsule,delayed 20 mg PO DAILY 06/15/23 10/04/23 History release lisinopril 40 mg tablet 40 mg PO DAILY 06/15/23 10/04/23 History propranolol 20 mg tablet 20 mg PO BEDTIME 06/15/23 10/04/23 History quetiapine 25 mg tablet 25 mg PO BEDTIME 06/15/23 10/04/23 History rosuvastatin 40 mg tablet 40 mg PO DAILY 06/15/23 10/04/23 History insulin glargine 100 unit/mL (3 34 unit SUBCUT 2100 07/05/23 10/04/23 History mL) subcutaneous pen (Lantus Solostar U-100 Insulin) potassium chloride 10 mEq 10 meq PO Q OTHER DAY 07/05/23 10/04/23 History tablet,extended release amlodipine 10 mg tablet 10 mg PO DAILY 09/27/23 10/04/23 History chlorthalidone 25 mg tablet 12.5 mg PO QAM 09/27/23 10/04/23 History clobetasol 0.05 % topical ointment 1 applic topical DAILY 09/27/23 10/04/23 History diclofenac sodium 75 mg 75 mg PO BID 09/27/23 10/04/23 History tablet,delayed release fluoxetine 20 mg tablet 40 mg PO DAILY 09/27/23 10/04/23 History furosemide 20 mg tablet 20 mg PO QAM 09/27/23 10/04/23 History glipizide 5 mg tablet 5 mg PO BID 09/27/23 10/04/23 History benzonatate 100 mg capsule 100 mg PO TID PRN Cough #30 caps 10/01/23 10/04/23 Rx cefdinir 300 mg capsule 300 mg PO BID 5 days #10 caps 10/01/23 10/04/23 Rx Allergies Allergy/AdvReac Type Severity Reaction Status Date / Time morphine AdvReac Nightmare Verified 08/09/23 17:09 Review of Systems Review of Systems Narrative: A 12 point review of systems negative unless otherwise stated in the history present illness Exam Vital Signs (past 8 hours): - 10/04/23 01:50 10/04/23 04:44 10/04/23 05:08 Temperature 99.3 F Pulse Rate 84 Respiratory Rate 16 Blood Pressure 107/53 L Pulse Oximetry 96 94 94 Oxygen Delivery Method Room Air Room Air Oxygen Flow Rate 0 Oxygen Delivery Method Room Air Oxygen Flow Rate 0 Narrative Exam Narrative: Patient appears to be short of breath. Lungs lungs are diminished bilaterally in the mid lung region and at the base S1-S2 heard tachycardic Objective Labs 10/04/23 09:30 10/04/23 09:30 Labs: Laboratory Results - last 24 hr 10/03/23 10/03/23 10/03/23 17:00 17:30 18:45 WBC 20.9 H RBC 4.07 Hgb 12.3 Hct 36.6 MCV 89.9 MCH 30.3 MCHC 33.7 RDW 13.4 Plt Count 257 Neut % (Auto) 69.1 Lymph % (Auto) 23.6 L [place] % (Auto) 4.4 Eos % (Auto) 2.2 Baso % (Auto) 0.7 Neut # (Auto) 41315 H Lymph # (Auto) 4900 H [place] # (Auto) 900 Eos # (Auto) 500 H Baso # (Auto) 100 PT 11.6 INR 1.0 Sodium 133 L Potassium 3.7 Chloride 98 Carbon Dioxide 32 BUN 37 H Creatinine 1.48 H Estimated GFR 37 L BUN/Creatinine Ratio 25.0 H Glucose 260 H Lactate 1.8 Calcium 8.9 Total Bilirubin 0.8 AST 22 ALT 30 Alkaline Phosphatase 97 Troponin I < 0.012 NT-Pro-B Natriuret Pep 138 Total Protein 6.7 Albumin 3.6 Globulin 3.1 Albumin/Globulin Ratio 1.2 Urine Color Yellow Urine Appearance Clear Urine pH 5.0 Ur Specific [place] 1.015 Urine Protein Negative Urine Glucose (UA) Trace H Urine Ketones Negative Urine Occult Blood Trace-intact Urine Nitrate Negative Urine Bilirubin Negative Urine Urobilinogen 0.2 Ur Leukocyte Esterase Negative Urine RBC 0-1/hpf Urine WBC 0-1/hpf Ur Squamous Epith Cells 0-1 /hpf Urine Bacteria Occasional (0-1) Ur Culture Indicated? Cult not indicated Vol Urine Centrifuged 10ml (spun) Chlamy pneumoniae PCR Adenovirus (PCR) B.parapertussis DNA PCR Coronavirus OC43 (PCR) Coronavirus HKU1 (PCR) Coronavirus 229E (PCR) SARS-CoV-2 (PCR) Coronavirus NL63 (PCR) Monoscreen Negative Human Metapneumovir PCR Influenza Type A (PCR) Influenza Type B (PCR) M. pneumoniae (PCR) Parainfluenza 1 (PCR) Parainfluenza 2 (PCR) Parainfluenza 3 (PCR) Parainfluenza 4 (PCR) RSV (PCR) Entero/Rhino (PCR) Group A Strep (PCR) 10/03/23 10/03/23 19:57 21:45 WBC RBC Hgb Hct MCV MCH MCHC RDW Plt Count Neut % (Auto) Lymph % (Auto) [place] % (Auto) Eos % (Auto) Baso % (Auto) Neut # (Auto) Lymph # (Auto) [place] # (Auto) Eos # (Auto) Baso # (Auto) PT INR Sodium Potassium Chloride Carbon Dioxide BUN Creatinine Estimated GFR BUN/Creatinine Ratio Glucose Lactate Calcium Total Bilirubin AST ALT Alkaline Phosphatase Troponin I NT-Pro-B Natriuret Pep Total Protein Albumin Globulin Albumin/Globulin Ratio Urine Color Urine Appearance Urine pH Ur Specific [place] Urine Protein Urine Glucose (UA) Urine Ketones Urine Occult Blood Urine Nitrate Urine Bilirubin Urine Urobilinogen Ur Leukocyte Esterase Urine RBC Urine WBC Ur Squamous Epith Cells Urine Bacteria Ur Culture Indicated? Vol Urine Centrifuged Chlamy pneumoniae PCR Not detected Adenovirus (PCR) Not detected B.parapertussis DNA PCR Not detected Coronavirus OC43 (PCR) Not detected Coronavirus HKU1 (PCR) Not detected Coronavirus 229E (PCR) Not detected SARS-CoV-2 (PCR) Not detected Coronavirus NL63 (PCR) Not detected Monoscreen Human Metapneumovir PCR Not detected Influenza Type A (PCR) Not detected Influenza Type B (PCR) Not detected M. pneumoniae (PCR) Not detected Parainfluenza 1 (PCR) Not detected Parainfluenza 2 (PCR) Not detected Parainfluenza 3 (PCR) Not detected Parainfluenza 4 (PCR) Not detected RSV (PCR) Not detected Entero/Rhino (PCR) Not detected Group A Strep (PCR) Negative Assessment & Plan Assessment & Plan narrative: 1. Dyspnea with cough and concerns for persistent symptoms/acute bronchitis/early pneumonia. Did not get cefdinir filled as pharmacist at [facility] denied due to PCN allergy. After a long discussion, patient noted her allergy was when she was 13, and she has since had a full course of augmentin without issue. She was ok with removing PCN allergy from her chart. [facility] also called and they removed PCN allergy from their records also. -continue IV Rocephin and Zithromax in the emergency room, will continue abx given high leukocytosis. -Monitor on telemetry and check an echocardiogram to rule out a cardiac cause. -Start prednisone 40mg daily for likely bronchitis. 2. hypertension. -Resume the home amlodipine/propranolol and watch the blood pressure closely. Hold the lisinopril/chlorthalidone/furosemide due to renal dysfunction and the recent use of contrast 3. depression -resume the home fluoxetine and trend the blood pressure closely 4. diabetes mellitus type 2 -resume the home glipizide with Lantus and monitor blood sugar ACHS with insulin sliding scale. 5. acute kidney injury on chronic kidney disease. -Avoid NSAIDs including the home diclofenac and hold off on the OSVALDO inhibitor/diuretics for now. Trend renal function closely. Cr now improving. 6. anxiety. -Resume the home Seroquel 7. DVT prophylaxis will be with Lovenox For now patient is a full code. Patient is admitted under observation status.
[2023-10-04 09:50] LABS: Add Manual Diff / Slide Review NO; Basophils Absolute Auto 100 /uL (0-100); Basophils Percent Auto 0.4 % (0-2); Eosinophils Absolute Auto 500 /uL (0-450); Eosinophils Percent Auto 2.9 % (2-4); Hematocrit 32.2 % (36-46); Hemoglobin 10.9 g/dL (12.0-16.0); Lymphocytes Absolute Auto 3900 /uL (1100-4500); Lymphocytes Percent Auto 23.6 % (25-40); Mean Corpuscular HGB Conc 33.8 % (30-36); Mean Corpuscular Hemoglobin 30.7 PG (26-34); Mean Corpuscular Volume 90.8 fL (80-100); Monocytes Absolute Auto 900 /uL (0-900); Monocytes Percent Auto 5.2 % (3-14); Neutrophils Absolute Auto 11100 /uL (1500-7000); Neutrophils Percent Auto 67.9 % (50-75); Platelet Count 216 X10^3/uL (150-400); Red Blood Cell Count 3.54 X10^6/uL (4.0-5.2); Red Cell Distribution Width 13.2 % (11.6-14.8); White Blood Cell Count 16.3 X10^3/uL (4.5-11.0)
[2023-10-04 10:02] LABS: BUN Creatinine Ratio 21.2 (6-22); Blood Urea Nitrogen 29 mg/dL (7-17); Calcium 8.4 mg/dL (8.4-10.2); Carbon Dioxide 32 mmol/L (22-32); Chloride 99 mmol/L (98-107); Estimated Glomerular Filt Rate 40 mL/min (>60); Glucose 261 mg/dL (80-110); HEMOLYSIS < 15 (0-50); Potassium 3.5 mmol/L (3.4-5.1); Sodium 135 mmol/L (137-145)
[2023-10-04] MEDS: AZITHROMYCIN 250 MG TABLET 500 MG PO (12:16)
--- NOTE | 2023-10-04 14:09 | CM.DANOTE ---
Initial DCP Assessment Note Pt is a 77yo female, resident at [facility] , recent hospitalization for resp failure with parainfluenza infection- discharged 10/01/23 back to [facility]. Returns with persistent and worsening SOB, fatigue and cough, admitted OBS for monitoring and IV abx. PCP: Monie Santamaria Payer: [facility] Reviewed chart, met w/patient to introduce self and role. Patient familiar to this GEOPHYSICAL LABORATORY CHIEF from last admission. Patient confirms this information remains the same (from recent admission): reports living at [facility] for 3 weeks although has been feeling sick for at least two of those weeks. Patient receives assist with meds, assist w/neb treatments, meals, bathing and grooming. Patient reports being in isolation at [place] for the last two weeks so meals are delivered to her room. Patient would like to return to [place] upon discharge. Patient has had [facility] at [facility] and would like this to resume. Patient reports she was able to designate a DPOA and back up with the DPOA ppk provided last visit 1. sister, who lives in [place], [place] and 2. son that lives in [place] Attempted call to [facility] main number P [phone], got disconnected. Attempted Chey Dahl, power regulator P [phone], had to LM on an automated line. This GEOPHYSICAL LABORATORY CHIEF would like a copy of patient's DPOA ppk faxed in order to be scanned into [facility] record. Plan: Discharge back to [facility] anticipated upon discharge, transport likely via [facility] (Ph. # [phone]) with [facility], resumption of [facility] CM team will plan to follow closely RENZO Fernandes Discharge Planning/Care Management CM Discharge Assessment Start: 10/04/23 13:54 Freq: Status: Active Protocol: Document 10/04/23 13:55 ENRIQUE (Rec: 10/04/23 14:09 ENRIQUE [id number]) Discharge Planning Assessment Assigned Sand Mixer Machine RENZO Onofre DPOA/Assigned Designee Name Patient recently assigned her sister and son, Contact Information need to obtain updated DPOA ppk from [facility] Advance Directives? Yes Advance Directives on File No History Provided By Patient,Medical Record Prior Living Arrangements Assisted Living Household Members none Type of transporation used prior to Relies on Others admit Facility Name Admitted From: [facility] Willing to Return to Facility? Yes Independent with ADL's No: Needs assist with higher ADLs and more when feeling ill Is patient alert and oriented? Yes Needs Assistance With Bathing,Grooming,Meal Prep, Toileting,Managing Medications ,Home Chores / Shopping Patient/Family Preference Home with Home Health Barriers to Discharge No Comment Anticipate return to [facility] upon discharge, patient agreeable to this plan. Discharge Plan Assisted Living Facility Transportation Arrangement [place] Anatomic Pathology Manager Nola Sylvester facility van Referrals Initiated Home Health Additional Comment Resumption of [facility]
[2023-10-04] MEDS: POTASSIUM CHLORIDE 20 MEQ TAB PO (14:36)
[2023-10-04] MEDS: predniSONE 20 MG TABLET 40 MG PO (18:53)
[2023-10-04] MEDS: ATORVASTATIN 20 MG TABLET 80 MG PO (20:26)
[2023-10-04] MEDS: QUETIAPINE 25 MG TABLET PO (20:26)
[2023-10-04] MEDS: PROPRANOLOL 10 MG TABLET 20 MG PO (20:26)
[2023-10-04] MEDS: INSULIN GLARGINE 100 UNIT/ML 3ML PEN 34 UNIT SUBCUT (20:35)
--- NOTE | 2023-10-04 22:02 | PC.NURSE ---
10/04/23 @ 2200 Assisted patient back to bed from bathroom. Patient complaing of pain under left breast. Patient lifted up breast and this STUDENT ACCOUNTS COORDINATOR noticed some redness along with some EKG pads. This STUDENT ACCOUNTS COORDINATOR removed the EKG pads and carefully washed the areas under the right and left breast and applied some barrier cream under both breasts. Notified Terese Herrera RN
[2023-10-04] MEDS: cefTRIAXone 1,000 MG in SODIUM CHLORIDE 0.9% 100 ML 200 MG IV ×2 (23:14→23:16)
[2023-10-05] VITALS (7 sets, daily range): BP systolic 110–143; BP diastolic 53–68; PULSE 73–85; RESP 16–18; TEMP 35.9–36.6; O2SAT 95–100
[2023-10-05] MEDS: glipiZIDE 5 MG TABLET PO ×2 (06:03→16:55)
[2023-10-05 07:06] LABS: Add Manual Diff / Slide Review NO; Basophils Absolute Auto 0 /uL (0-100); Basophils Percent Auto 0.1 % (0-2); Eosinophils Absolute Auto 0 /uL (0-450); Eosinophils Percent Auto 0.1 % (2-4); Hematocrit 35.6 % (36-46); Hemoglobin 12.2 g/dL (12.0-16.0); Lymphocytes Absolute Auto 1400 /uL (1100-4500); Lymphocytes Percent Auto 9.8 % (25-40); Mean Corpuscular HGB Conc 34.3 % (30-36); Mean Corpuscular Hemoglobin 30.9 PG (26-34); Mean Corpuscular Volume 90.1 fL (80-100); Monocytes Absolute Auto 200 /uL (0-900); Monocytes Percent Auto 1.5 % (3-14); Neutrophils Absolute Auto 12700 /uL (1500-7000); Neutrophils Percent Auto 88.5 % (50-75); Platelet Count 217 X10^3/uL (150-400); Red Blood Cell Count 3.95 X10^6/uL (4.0-5.2); Red Cell Distribution Width 13.1 % (11.6-14.8); White Blood Cell Count 14.3 X10^3/uL (4.5-11.0)
[2023-10-05 07:26] LABS: BUN Creatinine Ratio 24.1 (6-22); Blood Urea Nitrogen 28 mg/dL (7-17); Calcium 9.2 mg/dL (8.4-10.2); Carbon Dioxide 27 mmol/L (22-32); Chloride 102 mmol/L (98-107); Estimated Glomerular Filt Rate 49 mL/min (>60); Glucose 303 mg/dL (80-110); HEMOLYSIS < 15 (0-50); Potassium 4.2 mmol/L (3.4-5.1); Sodium 134 mmol/L (137-145)
[2023-10-05] MEDS: FLUoxetine 20 MG CAPSULE 40 MG PO (08:42)
[2023-10-05] MEDS: ENOXAPARIN 40 MG/0.4 ML SYRINGE SUBCUT ×2 (08:42→21:18)
[2023-10-05] MEDS: AZITHROMYCIN 250 MG TABLET 500 MG PO (08:42)
[2023-10-05] MEDS: AMLODIPINE 5 MG TABLET 10 MG PO (08:42)
[2023-10-05] MEDS: predniSONE 20 MG TABLET 40 MG PO (08:42)
[2023-10-05] MEDS: INSULIN LISPRO 100 UNIT/ML 3ML VIAL SUBCUT ×4 (08:43→21:19)
[2023-10-05] MEDS: DULOXETINE 20 MG CAPSULE PO (08:43)
--- NOTE | 2023-10-05 12:06 | P.PN_ITS ---
Subjective Subjective Interval history: 77 F readmitted with PNA after issue with pharmacy not prescribing antibiotics. She feels improved today, but still weak and short of breath. Able to turn of O2 at bedside and keep O2 saturations above 90 this morning. WBC count improved, cr improved. Exam Vital Signs (past 8 hours): - 10/05/23 07:00 10/05/23 07:00 10/05/23 08:34 Pulse Rate 81 Blood Pressure 118/68 Pulse Oximetry 96 Oxygen Delivery Method Room Air Room Air Oxygen Flow Rate 0 Oxygen Delivery Method Room Air Oxygen Flow Rate 0 Narrative Exam Narrative: NAD, alert and oriented. Fluent speech. CTA b/l. Normal rate and effort. Heart is regular, no murmur gallop or rub. Abdomen is soft, non distended. Extremities are free of edema. Objective Labs 10/05/23 05:55 10/05/23 05:55 Labs: Laboratory Results - last 24 hr 10/05/23 05:55 WBC 14.3 H RBC 3.95 L Hgb 12.2 Hct 35.6 L MCV 90.1 MCH 30.9 MCHC 34.3 RDW 13.1 Plt Count 217 Neut % (Auto) 88.5 H D Lymph % (Auto) 9.8 L [place] % (Auto) 1.5 L Eos % (Auto) 0.1 L Baso % (Auto) 0.1 Neut # (Auto) 41289 H Lymph # (Auto) 1400 [place] # (Auto) 200 Eos # (Auto) 0 Baso # (Auto) 0 Sodium 134 L Potassium 4.2 Chloride 102 Carbon Dioxide 27 BUN 28 H Creatinine 1.16 H Estimated GFR 49 L BUN/Creatinine Ratio 24.1 H Glucose 303 H Calcium 9.2 PFSH Medical History Secondhand smoke exposure Lichen sclerosus et atrophicus Microscopic hematuria Urge incontinence Hx of migraine headaches History of depression History of chronic urinary tract infection History of arthritis Peripheral neuropathy Depression Hyperlipidemia Fibromyalgia Hypertension Lower leg edema Diabetes Surgical History Hx of abdominal hysterectomy Hx of breast biopsy Hx of total knee replacement Hx of cholecystectomy Hx of appendectomy Family History Mother Cancer CVA (cerebral vascular accident) Hyperlipidemia Hypertension Father Hypertension Hyperlipidemia CAD (coronary artery disease) Sister Hyperlipidemia Hypertension Diabetes mellitus Multiple kidney stones Migraines Brother Hyperlipidemia Hypertension Migraines Eczema Social History marital status: number of children: 4 household members: none lives independently: Yes Smoking Status: Never smoker alcohol intake: current caffeine: Yes Type(s) of exercise: walking frequency: 3-4 times per week duration: 15-30 minutes/day Assessment & Plan Assessment & Plan narrative: 1. Dyspnea with cough and concerns for persistent symptoms/acute bronchitis/early pneumonia. Did not get cefdinir filled as pharmacist at [facility] denied due to PCN allergy. After a long discussion, patient noted her allergy was when she was 13, and she has since had a full course of augmentin without issue. She was ok with removing PCN allergy from her chart. [facility] also called and they removed PCN allergy from their records also. -continue IV Rocephin and Zithromax in the emergency room, will continue abx given high leukocytosis. -Monitor on telemetry and check an echocardiogram to rule out a cardiac cause. -Started prednisone 40mg daily for possible reactive airway. 2. hypertension. -Resume the home amlodipine/propranolol and watch the blood pressure closely. Conntinue to Hold the lisinopril/chlorthalidone/furosemide due to renal dysfunction and the recent use of contrast, along with normotension today. 3. depression -resume the home fluoxetine and trend the blood pressure closely 4. diabetes mellitus type 2 -resume the home glipizide with Lantus and monitor blood sugar ACHS with insulin sliding scale. 5. acute kidney injury on chronic kidney disease. -Avoid NSAIDs including the home diclofenac and hold off on the OSVALDO inhibitor/diuretics for now. Trend renal function closely. Cr now improving. 6. anxiety. -Resume the home Seroquel 7. DVT prophylaxis will be with Lovenox patient is a full code. Patient is admitted under observation status.
[2023-10-05] MEDS: ACETAMINOPHEN 325 MG TABLET 650 MG PO ×2 (15:30→22:07)
[2023-10-05] MEDS: ONDANSETRON 4 MG/2 ML INJ IV ×2 (16:55→22:55)
[2023-10-05] MEDS: ATORVASTATIN 20 MG TABLET 80 MG PO (21:17)
[2023-10-05] MEDS: INSULIN GLARGINE 100 UNIT/ML 3ML PEN 40 UNIT SUBCUT (21:18)
[2023-10-05] MEDS: QUETIAPINE 25 MG TABLET PO (21:19)
[2023-10-05] MEDS: PROPRANOLOL 10 MG TABLET 20 MG PO (21:19)
[2023-10-05] MEDS: cefTRIAXone 1,000 MG in SODIUM CHLORIDE 0.9% 100 ML 200 MG IV (22:56)
--- NOTE | 2023-10-05 23:28 | PC.NURSE ---
Patient is alert and oriented. Breath sounds diminished at bases but no crackles or wheezes auscultated. Occasional non-productive cough noted and RA sat 95%. No SOB noted at rest but reports she is SOB with exertion. HRR. Complained of nausea and medicated with zofran. BT present and abdomen is soft. Incontinent of urine so has external catheter in place per her request; does state she has some urinary burning at times. Is able to turn herself in bed. Gait not assessed at this time but reportedly is out of bed with walker and 1 assist related to weakness. Complained of generalized pain from fibromyalgia decreased with use of Tylenol. Bilateral calf SCD's applied at bedtime. CBG still elevated at hs so received Lantus and SS coverage; Dr. Jeffery was aware of previous elevated CBG and ordered an increase in her hs Lantus so MD not informed at this time. Fall risk score is high and bed alarm is activated.
[2023-10-06] VITALS (7 sets, daily range): BP systolic 110–124; BP diastolic 57–65; PULSE 69–88; RESP 15–16; TEMP 35.8–37.1; O2SAT 92–98
[2023-10-06] MEDS: SODIUM CHLORIDE 0.9% FLUSH 10 ML IV ×4 (04:45→22:42)
[2023-10-06] MEDS: ONDANSETRON 4 MG/2 ML INJ IV (04:45)
[2023-10-06] MEDS: ACETAMINOPHEN 325 MG TABLET 650 MG PO ×3 (04:49→22:41)
[2023-10-06 05:48] LABS: Add Manual Diff / Slide Review NO; Basophils Absolute Auto 0 /uL (0-100); Basophils Percent Auto 0.2 % (0-2); Eosinophils Absolute Auto 100 /uL (0-450); Eosinophils Percent Auto 0.7 % (2-4); Hematocrit 32.4 % (36-46); Hemoglobin 11.3 g/dL (12.0-16.0); Lymphocytes Absolute Auto 3700 /uL (1100-4500); Lymphocytes Percent Auto 25.7 % (25-40); Mean Corpuscular HGB Conc 34.8 % (30-36); Mean Corpuscular Volume 89.1 fL (80-100); Monocytes Absolute Auto 700 /uL (0-900); Monocytes Percent Auto 4.7 % (3-14); Neutrophils Absolute Auto 10000 /uL (1500-7000); Neutrophils Percent Auto 68.7 % (50-75); Platelet Count 218 X10^3/uL (150-400); Red Blood Cell Count 3.64 X10^6/uL (4.0-5.2); White Blood Cell Count 14.5 X10^3/uL (4.5-11.0)
[2023-10-06 05:59] LABS: BUN Creatinine Ratio 24.5 (6-22); Blood Urea Nitrogen 27 mg/dL (7-17); Carbon Dioxide 30 mmol/L (22-32); Chloride 103 mmol/L (98-107); Estimated Glomerular Filt Rate 52 mL/min (>60); Glucose 229 mg/dL (80-110); HEMOLYSIS < 15 (0-50); Potassium 3.7 mmol/L (3.4-5.1); Sodium 135 mmol/L (137-145)
[2023-10-06] MEDS: DULOXETINE 20 MG CAPSULE PO (08:21)
[2023-10-06] MEDS: AMLODIPINE 5 MG TABLET 10 MG PO (08:21)
[2023-10-06] MEDS: glipiZIDE 5 MG TABLET PO ×2 (08:21→17:24)
[2023-10-06] MEDS: predniSONE 20 MG TABLET 40 MG PO (08:21)
[2023-10-06] MEDS: FLUoxetine 20 MG CAPSULE 40 MG PO (08:21)
[2023-10-06] MEDS: ENOXAPARIN 40 MG/0.4 ML SYRINGE SUBCUT ×2 (08:23→21:12)
[2023-10-06] MEDS: INSULIN LISPRO 100 UNIT/ML 3ML VIAL SUBCUT ×4 (08:24→21:07)
--- NOTE | 2023-10-06 11:08 | PT.IIE ---
Current Diagnoses Pneumonia, unspecified organism (10/03/23) Surgical History (Last Reviewed 09/28/23 @ 07:51 by Sascha Blancas MD) Hx of abdominal hysterectomy Hx of appendectomy Hx of breast biopsy Hx of cholecystectomy Hx of total knee replacement Medical History (Last Reviewed 10/04/23 @ 05:04 by Ronnie Tong DO) Depression Diabetes Fibromyalgia History of arthritis History of chronic urinary tract infection History of depression Hx of migraine headaches Hyperlipidemia Hypertension Lichen sclerosus et atrophicus Lower leg edema Microscopic hematuria Peripheral neuropathy Secondhand smoke exposure Urge incontinence Physical Therapy Inpatient Evaluation/Re-Eval M1 PT/OT-IP Prior Functional Status Start: 10/06/23 11:58 Freq: NEEDED Status: Active Protocol: Document 10/06/23 11:08 AB (Rec: 10/06/23 12:18 AB [id number]) Medical Review Prior Functional Status Medical History Reviewed Yes Communication able to make needs known Mobility and Gait pt stated that she was modified independent with all mobilities and ambulation using a FWW; stated that she asks for assistance when needed ( ADL needs and occasionally for bed mobility) ; has h/o falls Prior Functional Level (Other details) pt was just hospitalized: -10/01/23 for PNA and was d/c'd back to [facility]. pt stated that she felt good when she got home but her prescription meds was not filled by the pharmacist due to her allergy and she started not feeling well on the 3rd day she was back home and prompted her to go the ED per her PCP advise. Social History Household Members none Living Arrangements Assisted Living Number of Floors (Floors) One Floor Number of Stairs To Enter/Railing? pt lives at [facility] Home Environment Standard Height Toilet,Walk in Shower,Built-In Shower Seat Home Equipment Front Wheel Walker,Bedside Commode,Hand Held Shower,Grab Bars Near Toilet,Grab Bars In Shower Additional Social History Comment pt stated that she can ask for assistance when needed M2 PT-IP Current Condition Start: 10/06/23 11:58 Freq: NEEDED Status: Active Protocol: Document 10/06/23 11:08 AB (Rec: 10/06/23 12:18 AB [id number]) Physical Therapy Current Condition Current Condition Evaluation Date 10/06/23 Treatment Diagnosis PNA; generalized weakness Onset Date 10/03/23 M3 PT-IP Subjective Start: 10/06/23 11:58 Freq: NEEDED Status: Active Protocol: Document 10/06/23 11:08 AB (Rec: 10/06/23 12:18 AB [id number]) Subjective Physical Therapy Visit Type Type Initial Evaluation Visit Start Time 11:08 Visit Stop Time 11:46 Number of SENIOR COMMUNICATIONS SPECIALIST Visits 38 M4 PT-IP Mobility and Gait Start: 10/06/23 11:58 Freq: NEEDED Status: Active Protocol: Document 10/06/23 11:08 AB (Rec: 10/06/23 12:18 AB [id number]) PT-Bed Mobility Assessment Supine to Sit Supine to Sit Standby Assistance PT-Transfer Assessment Sit to and From Stand Sit to and from Stand Contact Guard Assistance,1 Person Assistance,Use of Upper Extremities Equipment Transfer Assistive Device Gait Belt,Front Wheeled Walker Orthotic/Prosthetic Devices or Brace: No Transfers Transfer Destination Chair Transfer Technique ambulated Transfer Ability Level of Assist Contact Guard Assistance,1 Person Assistance,Use of Upper Extremities Comments Mobility Comments pt supine in bed and stated that she just got back to bed but willing to do PT. stated that she felt dizzy when she was sitting up. obtained PLOF and home set up from pt. BP monitored. BP in supine: 116/ 54 O2 sat at RA: 96% andPR: 76 bpm. pt completed supine to sit SBA. able to sit on EOB SBA. BP chekced: 128/62. no c/o dizziness. completed sit to stand CGA and ambulated in room using FWW ~ 40 ft CGA. presents with unsteady antalgic gait . pt agreed to stay up on the chair for lunch . BP checked seated on the chair after ambulation. : 144 /66. positioned pt on the chair. call light and table placed within reach. Gait Assessment Gait Gait Assistance Required: Contact Guard Assist Distance (Feet) 40 Able to Maintain Weight Bearing Status Yes During Gait Assistive Devices Assistive Device Gait Belt,Front Wheeled Walker Orthotic/Prosthetic Devices or Brace: No Gait Deviations General Gait Pattern Antalgic,Decreased Stride Length,Decreased Feet Clearance,Step-to Gait Factors Limiting Gait Function Factors Limiting Gait Function Decreased Activity Tolerance, Decreased Strength,Poor Balance,Poor Safety Awareness PT-Balance Assessment Sitting Balance and Reactions Static Sitting Balance Ability Good Dynamic Sitting Balance Ability Good Standing Balance and Reactions Static Standing Balance Ability Fair Dynamic Standing Balance Ability Fair Device Used FWW M5 PT-IP Objective Assessments Start: 10/06/23 11:58 Freq: NEEDED Status: Active Protocol: Document 10/06/23 11:08 AB (Rec: 10/06/23 12:18 AB [id number]) Orientation Orientation/Cognition Level of Alertness Alert Orientation Name Strength Lower Extremity Strength Assessment Right Impaired Hip 3+/5 Knee 4-/5 Muscle Tone Muscle Tone WNL Yes M6 PT-IP Treatment Start: 10/06/23 11:58 Freq: NEEDED Status: Active Protocol: Document 10/06/23 11:08 AB (Rec: 10/06/23 12:18 AB [id number]) Physical Therapy Treatment Education Education Provided Safety M7 PT-IP Assessment and Plan Start: 10/06/23 11:58 Freq: NEEDED Status: Active Protocol: Document 10/06/23 11:08 AB (Rec: 10/06/23 12:18 AB [id number]) PT Summary Assessment and Plan Potential Rehabilitation Potential Fair Status of Condition at Evaluation Evolving Summary Impairments Pain,ROM,Strength,Balance, Coordination,Sensation,Tone, Cognition,Bed Mobility, Transfers,Gait,Activity Tolerance Assessment Summary Pt is a 77 y/o F who presented to the ED for weakness and SOB. pt was just admitted to the hospital a few days prior for PNA 09/27-10/01/23 but was not able to take her meds when she went back home due to her prescription not filled by the pharmacist due to her allergy to the medication. pt admitted back to the hospital for PNA. pt currently requiring CGA with mobility using FWW but with decrease activity tolerance affecting mobility independence. pt lives at [facility] and can ask for assistance if needed per pt. pt will require HHPT to improve overall strength and independence. Goals Bed Mobility Goal Independent Transfer Goal Independent,Front Wheeled Walker Gait Goal Independent,Front Wheel Walker Gait Distance 250 Days to Meet Goals 10 Frequency of Treatment Frequency Of Treatment Once a Day Treatment Plan Physical Therapy Treatment Plan Bed Mobility Training,Transfer Training,Gait Training, Therapeutic Exercise,Balance Retraining,Discharge Planning, Hot or Cold Pack,Neuromuscular Re-ed,Coordination Retraining Precautions Other Precautions falls Recommendations To Nursing Amount of Assist Needed 1 Person Assist Discharge Recommendations PT Discharge Recommendations Home with Assistance,Home Health Transportation Needs at Discharge Private Vehicle,Wheelchair/ Cabulance
--- NOTE | 2023-10-06 12:58 | PM.PN.1 ---
Subjective Subjective Interval history: 77 F readmitted with PNA after issue with pharmacy not prescribing antibiotics. She feels improved today, but still weak and short of breath. Exam Vital Signs (past 8 hours): - 10/06/23 08:00 Temperature 97.6 F Pulse Rate 69 Respiratory Rate 15 Blood Pressure 112/65 Pulse Oximetry 92 Oxygen Delivery Method Room Air Oxygen Flow Rate 0 Narrative Exam Narrative: NAD, alert and oriented. Fluent speech. CTA b/l. Normal rate and effort. Heart is regular, no murmur gallop or rub. Abdomen is soft, non distended. Extremities are free of edema. Objective Labs 10/06/23 05:15 10/06/23 05:15 Labs: Laboratory Results - last 24 hr 10/06/23 05:15 WBC 14.5 H RBC 3.64 L Hgb 11.3 L Hct 32.4 L MCV 89.1 MCH 31.0 MCHC 34.8 RDW 13.0 Plt Count 218 Neut % (Auto) 68.7 Lymph % (Auto) 25.7 [place] % (Auto) 4.7 Eos % (Auto) 0.7 L Baso % (Auto) 0.2 Neut # (Auto) 53391 H Lymph # (Auto) 3700 [place] # (Auto) 700 Eos # (Auto) 100 Baso # (Auto) 0 Sodium 135 L Potassium 3.7 Chloride 103 Carbon Dioxide 30 BUN 27 H Creatinine 1.10 H Estimated GFR 52 L BUN/Creatinine Ratio 24.5 H Glucose 229 H Calcium 9.0 PFSH Medical History Secondhand smoke exposure Lichen sclerosus et atrophicus Microscopic hematuria Urge incontinence Hx of migraine headaches History of depression History of chronic urinary tract infection History of arthritis Peripheral neuropathy Depression Hyperlipidemia Fibromyalgia Hypertension Lower leg edema Diabetes Surgical History Hx of abdominal hysterectomy Hx of breast biopsy Hx of total knee replacement Hx of cholecystectomy Hx of appendectomy Family History Mother Cancer CVA (cerebral vascular accident) Hyperlipidemia Hypertension Father Hypertension Hyperlipidemia CAD (coronary artery disease) Sister Hyperlipidemia Hypertension Diabetes mellitus Multiple kidney stones Migraines Brother Hyperlipidemia Hypertension Migraines Eczema Social History marital status: number of children: 4 household members: none lives independently: Yes Smoking Status: Never smoker alcohol intake: current caffeine: Yes Type(s) of exercise: walking frequency: 3-4 times per week duration: 15-30 minutes/day Assessment & Plan Assessment & Plan narrative: 1. acute Dyspnea with cough and concerns for persistent symptoms/acute bronchitis/early pneumonia. Did not get cefdinir filled as pharmacist at [facility] denied due to PCN allergy. After a long discussion, patient noted her allergy was when she was 13, and she has since had a full course of augmentin without issue. She was ok with removing PCN allergy from her chart. [facility] also called and they removed PCN allergy from their records also. -continue IV Rocephin and Zithromax in the emergency room, will continue abx given high leukocytosis. -Monitor on telemetry and check an echocardiogram to rule out a cardiac cause. -Started prednisone 40mg daily for possible reactive airway. -added albuterol today to see if can improve dyspnea. 2. hypertension. -Resume the home amlodipine/propranolol and watch the blood pressure closely. Conntinue to Hold the lisinopril/chlorthalidone/furosemide due to renal dysfunction and the recent use of contrast, along with normotension today. 3. depression -resume the home fluoxetine and trend the blood pressure closely 4. diabetes mellitus type 2 -resume the home glipizide with Lantus and monitor blood sugar ACHS with insulin sliding scale. 5. acute kidney injury on chronic kidney disease. -Avoid NSAIDs including the home diclofenac and hold off on the OSVALDO inhibitor/diuretics for now. Trend renal function closely. Cr now improving. 6. anxiety. -Resume the home Seroquel 7. DVT prophylaxis will be with Lovenox patient is a full code. Will order physical therapy as well today.
--- NOTE | 2023-10-06 14:16 | CM.DPNOTE ---
DCP Cont According to Dr Jeffery, patient may be ready for discharge tomorrow. PT has been ordered today and recommending Home w/assist and HH. Patient already receives home health through [facility] which can be resumed. Attempted call to [facility], main number P [phone], phone rang and rang, no answer. Faxed clinical to [facility] at F [phone] and emphasized that patient is nearing medical stability. ENRIQUE
[2023-10-06] MEDS: NYSTATIN CREAM 30 GM 1 APPLIC TOP (18:00)
[2023-10-06] MEDS: INSULIN GLARGINE 100 UNIT/ML 3ML PEN 40 UNIT SUBCUT (21:07)
[2023-10-06] MEDS: ATORVASTATIN 20 MG TABLET 80 MG PO (21:13)
[2023-10-06] MEDS: PROPRANOLOL 10 MG TABLET 20 MG PO (21:13)
[2023-10-06] MEDS: QUETIAPINE 25 MG TABLET PO (21:13)
[2023-10-06] MEDS: ALBUTEROL 2.5 MG/3 ML NEB (ADULT) INH (21:42)
[2023-10-06] MEDS: cefTRIAXone 1,000 MG in SODIUM CHLORIDE 0.9% 100 ML 200 MG IV (22:41)
--- NOTE | 2023-10-06 23:46 | PC.NURSE ---
Addendum entered by Carol Gaspar R.N. 10/06/23 23:53: CBG tonight was 369 and previous was [address] Gastelum, night hospitalist, was informed and opted not to change any insulin orders at that time. Original Note: Patient is alert and oriented. Breath sounds CTA with RA sat of 98%; still some SOB with exertion and has occasional dry sounding non-productive cough. HRR. Denied nausea at time of assessment but still occurs intermittently when coughing. BT hyperactive and did have BM on previous shift. Is incontinent of urine so using external catheter; reports earlier burning with urination but has since resolved after having had shower. Is able to move herself in bed and gets out of bed with assistance + walker. Reddened under bilateral breasts with skin open/peeling under left breast; now has Nystatin cream ordered. Bruising scattered on bilateral UE and right LE. Bilateral calf SCD's placed for night. Medicated with Tylenol for generalized pain related to fibromyalgia as well as 8/10 headache, but is now sleeping. Fall risk score is high and bed alarm is activated.
[2023-10-07 01:00] VITALS: O2SAT 94
[2023-10-07 02:00] VITALS: BP 128/70; PULSE 80; RESP 17; TEMP 37; O2SAT 94
[2023-10-07] MEDS: ONDANSETRON 4 MG/2 ML INJ IV (05:33)
[2023-10-07] MEDS: SODIUM CHLORIDE 0.9% FLUSH 10 ML IV ×2 (05:33→08:13)
[2023-10-07 06:01] LABS: Basophils Absolute Auto 100 /uL (0-100); Basophils Percent Auto 0.8 % (0-2); Eosinophils Absolute Auto 100 /uL (0-450); Eosinophils Percent Auto 0.6 % (2-4); Hematocrit 35.4 % (36-46); Hemoglobin 12.2 g/dL (12.0-16.0); Lymphocytes Absolute Auto 4800 /uL (1100-4500); Lymphocytes Percent Auto 32.6 % (25-40); Mean Corpuscular HGB Conc 34.5 % (30-36); Mean Corpuscular Hemoglobin 31.1 PG (26-34); Mean Corpuscular Volume 90.2 fL (80-100); Monocytes Absolute Auto 900 /uL (0-900); Monocytes Percent Auto 6.2 % (3-14); Neutrophils Absolute Auto 8900 /uL (1500-7000); Neutrophils Percent Auto 59.8 % (50-75); Red Blood Cell Count 3.93 X10^6/uL (4.0-5.2); Red Cell Distribution Width 13.3 % (11.6-14.8); White Blood Cell Count 14.8 X10^3/uL (4.5-11.0)
[2023-10-07 06:07] LABS: BUN Creatinine Ratio 26.5 (6-22); Blood Urea Nitrogen 27 mg/dL (7-17); Calcium 8.9 mg/dL (8.4-10.2); Carbon Dioxide 31 mmol/L (22-32); Chloride 103 mmol/L (98-107); Estimated Glomerular Filt Rate 57 mL/min (>60); Glucose 198 mg/dL (80-110); HEMOLYSIS < 15 (0-50); Potassium 3.5 mmol/L (3.4-5.1); Sodium 135 mmol/L (137-145)
[2023-10-07 06:24] LABS: Add Manual Diff / Slide Review SLIDE REVIEW
[2023-10-07 06:25] LABS: Platelet Estimate Adequate on smear
[2023-10-07 06:27] LABS: RBC Morphology Normal Morphology
[2023-10-07 08:00] VITALS: BP 125/61; PULSE 78; RESP 16; TEMP 36.9; O2SAT 94
[2023-10-07] MEDS: FLUoxetine 20 MG CAPSULE 40 MG PO (08:11)
[2023-10-07] MEDS: DULOXETINE 20 MG CAPSULE PO (08:12)
[2023-10-07] MEDS: predniSONE 20 MG TABLET 40 MG PO (08:12)
[2023-10-07] MEDS: glipiZIDE 5 MG TABLET PO (08:12)
[2023-10-07] MEDS: POTASSIUM CHLORIDE 20 MEQ TAB PO (08:12)
[2023-10-07] MEDS: ENOXAPARIN 40 MG/0.4 ML SYRINGE SUBCUT (08:12)
[2023-10-07] MEDS: AMLODIPINE 5 MG TABLET 10 MG PO (08:12)
[2023-10-07] MEDS: INSULIN LISPRO 100 UNIT/ML 3ML VIAL SUBCUT ×2 (08:13→12:18)
[2023-10-07] MEDS: NYSTATIN CREAM 30 GM 1 APPLIC TOP (08:13)
[2023-10-07 09:00] VITALS: O2SAT 94
--- NOTE | 2023-10-07 11:32 | PT-IP ANOTE ---
Checked on pt twice and sleeping both times. RN requests to let pt sleep, confirms pt has been walking w/ nursing staff and will go for a longer walk this afternoon.
--- NOTE | 2023-10-07 11:50 | PM.DS.1 ---
History of Present Illness History of Present Illness Date Patient Seen: 10/07/23 Time Patient Seen: 09:00 Chief complaint: Worsening Pain Narrative: From night provider: 77 years old female with a past medical history of hypertension, diabetes mellitus insulin-dependent, depression, hypertension, fibromyalgia, urinary tract infection and recent hospitalization for respiratory failure with parainfluenza infection complicated by sepsis with acute kidney injury was brought back to emergency room for worsening shortness of breath with increasing fatigue and cough that is productive with yellow-greenish sputum and fever episodes. Apparently post discharge, pharmacy had declined to fill the oral cephalosporin due to patient's allergy to penicillin and reports symptoms have been worsening especially the respiratory symptoms for the past few days with generalized fatigue. Does have chest pain with deep inspiration and with cough. No palpitation dizziness or loss of consciousness. Did have constipation but with medication and had episode of loose stools earlier today. Denies any abdominal pain. No dysuria. Subsequent workup in the ED showed a white count of 20.9 with a BUN of 37 and a creatinine of 1.48. CTA was negative for pulmonary embolism and no acute process. Given the persistence of the bumps in the setting of leukocytosis/fever, patient received a dose of IV Rocephin and Zithromax in the emergency room with nebulizers and subsequently admitted for further evaluation Discharge Providers Provider Date of admission: 10/03/23 23:20 Discharge Date: 10/07/23 Primary care physician: Monie Santamaria RN Consults: 10/06/23 09:14 Consult to Physical Therapy Evaluate & Treat Comment: Physician Instructions: Evaluate and Treat Discharge provider: Burt Jeffery DO Summary Hospital Course Discharge Diagnosis: 1. acute Dyspnea with cough and concerns for persistent symptoms/acute bronchitis/early pneumonia. 2. hypertension. 3. depression 4. diabetes mellitus type 2 5. acute kidney injury on chronic kidney disease. 6. anxiety. Hospital Course: 77 F with PMH of HTN, HLD, Depression, DM2, CKD who was admitted with worsening dyspnea and recurrent pneumonia. Patient had been previously admitted, pharmacy denied outpatient cefdinir due to penicillin allergy. She returned with leukocytosis and clinical signs of pneumonia. She improved with antibiotics, and was also started on steroids for possible reactive airway with improvement. She was able to be weaned from O2, remained weak but slowly improved. She was discharged back to her assisted living facility. Her home lisinopril was held during admission and not restarted as her BP remained normal without this. Her diuretic was also held but this can resume on discharge with her potassium supplementation. Time Spent with Patient Time spent: Greater than 30 minutes Exam Vital Signs (past 8 hours): - 10/07/23 09:00 Pulse Oximetry 94 Oxygen Delivery Method Room Air Oxygen Flow Rate 0 Oxygen Delivery Method Room Air Oxygen Flow Rate 0 Narrative Exam Narrative: NAD, alert and oriented. Fluent speech. CTA b/l. Normal rate and effort. Heart is regular, no murmur gallop or rub. Abdomen is soft, non distended. Extremities are free of edema. Objective Labs 10/07/23 05:34 10/07/23 05:34 Labs: Laboratory Results - last 24 hr 10/07/23 05:34 WBC 14.8 H RBC 3.93 L Hgb 12.2 Hct 35.4 L MCV 90.2 MCH 31.1 MCHC 34.5 RDW 13.3 Plt Count TNP Neut % (Auto) 59.8 Lymph % (Auto) 32.6 [place] % (Auto) 6.2 Eos % (Auto) 0.6 L Baso % (Auto) 0.8 Neut # (Auto) 8900 H Lymph # (Auto) 4800 H [place] # (Auto) 900 Eos # (Auto) 100 Baso # (Auto) 100 Platelet Estimate Adequate on smear Clumped Platelets RBC Morphology Normal morphology Sodium 135 L Potassium 3.5 Chloride 103 Carbon Dioxide 31 BUN 27 H Creatinine 1.02 Estimated GFR 57 L BUN/Creatinine Ratio 26.5 H Glucose 198 H Calcium 8.9 PFSH Medical History Secondhand smoke exposure Lichen sclerosus et atrophicus Microscopic hematuria Urge incontinence Hx of migraine headaches History of depression History of chronic urinary tract infection History of arthritis Peripheral neuropathy Depression Hyperlipidemia Fibromyalgia Hypertension Lower leg edema Diabetes Surgical History Hx of abdominal hysterectomy Hx of breast biopsy Hx of total knee replacement Hx of cholecystectomy Hx of appendectomy Family History Mother Cancer CVA (cerebral vascular accident) Hyperlipidemia Hypertension Father Hypertension Hyperlipidemia CAD (coronary artery disease) Sister Hyperlipidemia Hypertension Diabetes mellitus Multiple kidney stones Migraines Brother Hyperlipidemia Hypertension Migraines Eczema Social History marital status: number of children: 4 household members: none lives independently: Yes Smoking Status: Never smoker alcohol intake: current caffeine: Yes Type(s) of exercise: walking frequency: 3-4 times per week duration: 15-30 minutes/day Discharge Plan Discharge Plan Patient Disposition: Assisted Living Provider Discharge Comment: You were admitted to the hospital with pnuemonia and COPD exacerbation. Complete another week of antibiotic at home. Discharge orders & Medications Discharge Orders: Discharge (Order); Ordered 10/07/23 Ordered By: Burt Jeffery Prescriptions: New prednisone 20 mg Tablet 40 mg PO DAILY 2 Days Qty: 4 0RF cefdinir 300 mg capsule 300 mg PO BID 7 Days Qty: 14 0RF Continued duloxetine 20 mg capsule,delayed release(DR/EC) 20 mg PO DAILY quetiapine 25 mg tablet 25 mg PO BEDTIME propranolol 20 mg tablet 20 mg PO BEDTIME rosuvastatin 40 mg tablet 40 mg PO DAILY Patient Comments: All the medicines I'm taking in this hospital is in my record. insulin glargine [Lantus Solostar U-100 Insulin] 100 unit/mL (3 mL) insulin pen 34 unit SUBCUT 2100 potassium chloride 10 mEq tablet extended release 10 meq PO Q OTHER DAY chlorthalidone 25 mg tablet 12.5 mg PO QAM amlodipine 10 mg tablet 10 mg PO DAILY fluoxetine 20 mg tablet 40 mg PO DAILY diclofenac sodium 75 mg tablet,delayed release (DR/EC) 75 mg PO BID furosemide 20 mg tablet 20 mg PO QAM clobetasol 0.05 % ointment 1 applic topical DAILY glipizide 5 mg tablet 5 mg PO BID benzonatate 100 mg Capsule 100 mg PO TID PRN (Reason: Cough) Qty: 30 0RF Discontinued lisinopril 40 mg tablet 40 mg PO DAILY cefdinir 300 mg capsule 300 mg PO BID 5 Days Qty: 10 0RF Follow up/Referrals: Monie Santamaria RN [Primary Care Provider] - Discharge Health Status Multidrug resistant organism: No MDRO Precautions: [place] Diet/Activity/Treatments Diet: Diet as Tolerated and Carb-consistent/Diabetic Liquid consistency: Normal/Thin Food texture: Regular Activity: As tolerated, no restrictions Visit Report/Discharge Packet Instructions: DI for Pneumonia -- Adult, How to Use Antibiotics Wisely Stand Alone Forms: Patient Portal/API, Stroke Signs & Symptoms Discharge Data Primary Care Provider: Monie Santamaria Attending Provider: Sanket Gastelum Admit Date/Time: 10/03/23 23:20
--- NOTE | 2023-10-07 12:44 | CM.DPNOTE ---
DCP Note PASSENGER BRAKEMAN reviewed EMR. Per provider, pt medically cleared to dc today back to [facility] with HH to follow. PASSENGER BRAKEMAN struggled throughout the day to connect with staff at [facility]. After 7 attempts to call and email, spoke to RN. RN confirm Can take her back whenever today. PASSENGER BRAKEMAN faxed signed med list and dc sum draft (f [phone]). PASSENGER BRAKEMAN called pt case management director corona Lawson no response. PASSENGER BRAKEMAN called [facility]. spoke with Juan, confirm pt's medicaid transport benefit. Arranged for 2:45pm p/u in front of ED to take pt home. PASSENGER BRAKEMAN met with pt in room with RN. Agreeable to home with HH. Anxious about medication plan due to last time her pharmacy refusing to fill antibiotic and she got sicker. After collaboration with RN/pt/this PASSENGER BRAKEMAN plan is for pt to dc home and attempt to get [facility] to fill med there. If not, pt will call this PASSENGER BRAKEMAN or the hospital tomorrow for the hospitalist to send antibiotic to [facility] in [place], where either a nurse at [facility] or her case management director will go pick it up for her. Pt reports being less anxious and agreeable to this plan. RN will prep pt for 2:45pm dc and will assist pt down to ED. PASSENGER BRAKEMAN emailed Francisca at [facility] resumption order, f2f, and dc sum draft. Sig to resume care for RN/PT/STOCK CONTROLLER. PASSENGER BRAKEMAN placed f2f in scanning folder. Plan: pt to dc today via yellow [employer] with medicaid benefit to transport home at approx 245pm. Sig to follow for RN/PT/STOCK CONTROLLER. CM team will continue to follow closely. RENZO Moreno
--- NOTE | 2023-10-08 08:57 | CM.DPNOTE ---
Addendum entered by RENZO Moreno 10/08/23 10:11: SECTION WEAVER received call form Latisha at [facility] (p [phone] ext [phone]). SECTION WEAVER attempted to call back x3, call dropped everytime. SECTION WEAVER let pt know that this SECTION WEAVER attempted to reach her back. Pt appreciative and reports [facility] is filling her script and it is going to be ready soon for her. SL Original Note: SECTION WEAVER received call from pt today. Pt very emotional about her pharmacy at [facility] not filling her antibiotic. SECTION WEAVER spoke with Dr. Rodriguez- agreed to send it to [facility] in [place]. SECTION WEAVER called [facility] back- report it's been sent and pt reports she has someone that can go pick it up for her. Pt appreciative of Dr. Rodriguez's assistance. CM team will continue to follow as needed. RENZO Moreno
== END 2023-10-07 14:00 | DRG 194 ==
LOC: ED 23:20 → AC 23:36
PROVIDERS: Emergency Medicine; Student in an Organized Health Care Education/Training Program; Admitting Provider Internal Medicine; Emergency Provider Emergency Medicine; PCP Nurse Practitioner Family; Referring Provider Emergency Medicine; Visit Provider Internal Medicine
DX: J18.9 Pneumonia, unspecified organism (principal); J44.0 Chronic obstructive pulmonary disease with (acute) lower respiratory infection; N17.9 Acute kidney failure, unspecified; J44.1 Chronic obstructive pulmonary disease with (acute) exacerbation; J20.9 Acute bronchitis, unspecified; F32.A Depression, unspecified; F41.9 Anxiety disorder, unspecified; I12.9 Hypertensive chronic kidney disease with stage 1 through stage 4 chronic kidney disease, or unspecified chronic kidney disease; E11.22 Type 2 diabetes mellitus with diabetic chronic kidney disease; N18.9 Chronic kidney disease, unspecified; E78.5 Hyperlipidemia, unspecified; Z79.4 Long term (current) use of insulin; Z79.85 Long-term (current) use of injectable non-insulin antidiabetic drugs
CPT/HCPCS: 36415; 71045; 71275; 80048; 80053; 81001; 82962; 83605; 83880; 84484; 85025; 85610; 86318; 87040; 87070; 87633; 87651; 93005; 96365; 96375; 97161; 97530; 99284; G0378; J0696; J1650; J1815; J2405; J7613

== ENCOUNTER 2023-10-10 19:25 | Observation (INO) | payer OTHER, SELFPAY ==
[2023-10-04 00:33] VITALS: BMI 43.3
[2023-10-10] VITALS (11 sets, daily range): BP systolic 130–161; BP diastolic 57–73; PULSE 85–98; RESP 12–20; TEMP 36.4; O2SAT 90–98; BMI 40.8
--- NOTE | 2023-10-10 19:30 | ED.GENADULT ---
HPI - General Adult General Chief complaint: Shortness of Breath/Dyspnea Stated complaint: Increased SOB, Lethargic Time Seen by Provider: 10/10/23 19:27 History of Present Illness HPI narrative: 77-year-old female with history of hypertension, insulin-dependent diabetes, hypertension, fibromyalgia, recent hospitalizations presents by EMS from her assisted [facility]ci home for worsening shortness of breath, nausea, profound fatigue. Patient has had recurrent hospitalizations, initially for respiratory failure secondary to parainfluenza, and then for pneumonia/COPD. Patient has completed treatment, and reports that for a day or 2 she felt improved, however her shortness of breath is worsening and she was so fatigued she can not do anything at her assisted facility and was not able to get out of bed. Related Data Home Medications Medication Instructions Recorded Confirmed duloxetine 20 mg capsule,delayed 20 mg PO DAILY 06/15/23 10/11/23 release propranolol 20 mg tablet 20 mg PO BEDTIME 06/15/23 10/11/23 quetiapine 25 mg tablet 25 mg PO BEDTIME 06/15/23 10/11/23 rosuvastatin 40 mg tablet 40 mg PO DAILY 06/15/23 10/11/23 insulin glargine 100 unit/mL (3 34 unit SUBCUT 2100 07/05/23 10/11/23 mL) subcutaneous pen (Lantus Solostar U-100 Insulin) potassium chloride 10 mEq 10 meq PO Q OTHER DAY 07/05/23 10/11/23 tablet,extended release amlodipine 10 mg tablet 10 mg PO DAILY 09/27/23 10/11/23 chlorthalidone 25 mg tablet 12.5 mg PO QAM 09/27/23 10/11/23 clobetasol 0.05 % topical ointment 1 applic topical DAILY 09/27/23 10/11/23 diclofenac sodium 75 mg 75 mg PO BID 09/27/23 10/11/23 tablet,delayed release fluoxetine 20 mg tablet 40 mg PO DAILY 09/27/23 10/11/23 furosemide 20 mg tablet 20 mg PO QAM 09/27/23 10/11/23 glipizide 5 mg tablet 5 mg PO BID 09/27/23 10/11/23 Previous Rx's Medication Instructions Recorded benzonatate 100 mg capsule 100 mg PO TID PRN Cough #30 caps 10/01/23 cefdinir 300 mg capsule 300 mg PO BID 7 days #14 caps 10/08/23 Allergies Allergy/AdvReac Type Severity Reaction Status Date / Time morphine AdvReac Nightmare Verified 10/10/23 19:34 Review of Systems Review of Systems Narrative: Negative except as noted above Patient History Medical History Secondhand smoke exposure Lichen sclerosus et atrophicus Microscopic hematuria Urge incontinence Hx of migraine headaches History of depression History of chronic urinary tract infection History of arthritis Peripheral neuropathy Depression Hyperlipidemia Fibromyalgia Hypertension Lower leg edema Diabetes Surgical History Hx of abdominal hysterectomy Hx of breast biopsy Hx of total knee replacement Hx of cholecystectomy Hx of appendectomy Family History Mother Cancer CVA (cerebral vascular accident) Hyperlipidemia Hypertension Father Hypertension Hyperlipidemia CAD (coronary artery disease) Sister Hyperlipidemia Hypertension Diabetes mellitus Multiple kidney stones Migraines Brother Hyperlipidemia Hypertension Migraines Eczema Social History marital status: number of children: 4 household members: none lives independently: Yes Smoking Status: Never smoker alcohol intake: current caffeine: Yes Type(s) of exercise: walking frequency: 3-4 times per week duration: 15-30 minutes/day Smoking Status: Never smoker alcohol intake frequency: holidays/special occasions only Substance Use Type: does not use Exam Initial Vital Signs Initial Vital Signs: Vital Signs Temperature 97.6 F 10/10/23 19:25 Pulse Rate 90 10/10/23 19:25 Respiratory Rate 16 10/10/23 19:25 Blood Pressure 161/73 H 10/10/23 19:25 Pulse Oximetry 97 10/10/23 19:25 Oxygen Delivery Method Room Air 10/10/23 19:25 Const: Awake, alert, no acute distress, nontoxic appearing Cardiac: regular rate, regular rhythm RESP: unlabored, clear bilaterally, no wheezing GI: Atraumatic, soft, midepigastric tenderness to deep palpation without rebound or guarding MSK: Atraumatic, full range of motion, pulses equal Skin: Warm, Dry, intact, no rashes Neuro: AO x3, CN II-XII grossly intact, moves all extremities Course Orders Ordered: ED Orders 10/10/23 19:33 Chest [XR chest 1V] Stat EKG-12 Lead Stat 10/10/23 19:55 Blood Culture Stat 10/10/23 20:22 Respiratory Panel (Film Array) Stat 10/10/23 21:00 UA Complete [Urinalysis and Microscopic] Stat Urine Culture Stat 10/10/23 21:35 BNP [NT-proBNP (BNP-Adult 18+)] Stat CBC Auto Diff [Complete Blood Count AUTO DIFF] Stat CMP [Comprehensive Metabolic Panel] Stat Lipase Stat MAG [Magnesium] Stat PT [Prothrombin Time INR] Stat Procalcitonin Stat Troponin & CK Cardiac Panel Stat 10/10/23 23:33 CT abdomen pelvis w con Stat Discontinued Medications Ceftriaxone Sodium 2,000 mg/ (Sodium Chloride) 100 mls @ 200 mls/hr IV NOW ONE Stop: 10/11/23 01:50 Last Admin: 10/11/23 02:21 Dose: 200 mls/hr Documented By: Metoclopramide HCl (Metoclopramide 10 Mg/2 Ml Inj) 10 mg IV NOW ONE Stop: 10/10/23 23:48 Last Admin: 10/10/23 23:51 Dose: 10 mg Documented By: Vital Signs Vital signs: Vital Signs - 8 hr 10/10/23 19:30 10/10/23 19:30 10/10/23 20:00 Pulse Rate 92 H 90 Respiratory Rate 19 Blood Pressure 155/72 H Pulse Oximetry 98 94 Oxygen Delivery Method 10/10/23 20:02 10/10/23 20:02 10/10/23 20:30 Pulse Rate 91 H 86 Respiratory Rate 18 12 Blood Pressure 134/57 L Pulse Oximetry 95 94 Oxygen Delivery Method 10/10/23 20:30 10/10/23 21:00 10/10/23 21:00 Pulse Rate 90 Respiratory Rate 16 Blood Pressure 148/72 H 149/71 H Pulse Oximetry 95 Oxygen Delivery Method 10/10/23 21:30 10/10/23 22:00 10/10/23 22:00 Pulse Rate 89 85 Respiratory Rate 16 16 Blood Pressure 130/59 L Pulse Oximetry 96 95 Oxygen Delivery Method 10/10/23 22:30 10/10/23 22:30 10/10/23 23:00 Pulse Rate 94 H 92 H Respiratory Rate 20 13 Blood Pressure 132/66 Pulse Oximetry 95 94 Oxygen Delivery Method Room Air Room Air 10/10/23 23:00 10/10/23 23:30 10/10/23 23:30 Pulse Rate 98 H Respiratory Rate 19 Blood Pressure 135/67 138/70 Pulse Oximetry 90 L Oxygen Delivery Method 10/11/23 00:07 10/11/23 00:08 10/11/23 00:08 Pulse Rate 95 H 93 H Respiratory Rate 23 19 Blood Pressure 126/62 Pulse Oximetry 90 L 91 Oxygen Delivery Method 10/11/23 00:30 10/11/23 01:00 10/11/23 01:00 Pulse Rate 126 H 99 H Respiratory Rate 18 Blood Pressure 129/65 Pulse Oximetry 90 L Oxygen Delivery Method Room Air 10/11/23 01:30 10/11/23 01:30 Pulse Rate 97 H Respiratory Rate Blood Pressure 112/55 L Pulse Oximetry 90 L Oxygen Delivery Method Room Air Medical Decision Making Lab Data 10/10/23 21:35 10/10/23 21:35 Labs: Lab Results 10/10/23 10/10/23 10/10/23 Range/Units 20:22 21:00 21:35 WBC 21.2 H (4.5-11.0) X10^3/uL RBC 4.32 (4.0-5.2) X10^6/uL Hgb 13.3 (12.0-16.0) g/dL Hct 39.4 (36-46) % MCV 91.2 (80-100) fL MCH 30.8 (26-34) PG MCHC 33.8 (30-36) % RDW 14.0 (11.6-14.8) % Plt Count 265 (150-400) X10^3/uL Neut % (Auto) 61.4 (50-75) % Lymph % (Auto) 31.6 (25-40) % [place] % (Auto) 4.2 (3-14) % Eos % (Auto) 1.8 L (2-4) % Baso % (Auto) 1.0 (0-2) % Neut # (Auto) 03989 H (2224-7878) /uL Lymph # (Auto) 6700 H (1045-7771) /uL [place] # (Auto) 900 (0-900) /uL Eos # (Auto) 400 (0-450) /uL Baso # (Auto) 200 H (0-100) /uL PT 11.4 (9.4-12.5) SECONDS INR 1.0 (0.9-1.3) Sodium 135 L (137-145) mmol/L Potassium 3.9 (3.4-5.1) mmol/L Chloride 96 L (98-107) mmol/L Carbon Dioxide 32 (22-32) mmol/L BUN 53 H (7-17) mg/dL Creatinine 1.51 H (0.52-1.04) mg/dL Estimated GFR 36 L (>60) mL/min BUN/Creatinine Ratio 35.1 H (6-22) Glucose 189 H (80-110) mg/dL Calcium 9.5 (8.4-10.2) mg/dL Magnesium 1.6 (1.6-2.3) mg/dL Total Bilirubin 0.9 (0.2-1.3) mg/dL AST 25 (14-36) IU/L ALT 32 (<35) IU/L Alkaline Phosphatase 78 (38-126) U/L Total Creatine Kinase 22 L (30-135) U/L Troponin I < 0.012 (0.01-0.034) ng/mL NT-Pro-B Natriuret Pep 117 (<450) pg/mL Total Protein 6.9 (6.3-8.2) g/dL Albumin 3.8 (3.5-5.0) g/dL Globulin 3.1 (1.7-4.1) g/dL Albumin/Globulin Ratio 1.2 (1.0-2.8) Lipase 106 (23-300) U/L Procalcitonin 0.08 (<0.5) ng/mL Urine Color Yellow Urine Appearance Clear Urine pH 5.0 (4.5-8.0) Ur Specific [place] 1.010 (1.000-1.035) Urine Protein Negative (Negative) Urine Glucose (UA) Negative (Negative) g/dL Urine Ketones Negative (NEGATIVE) Urine Occult Blood Negative (Negative) Urine Nitrate Negative (Negative) Urine Bilirubin Negative (NEGATIVE) Urine Urobilinogen 0.2 (0.2) E.U./dL Ur Leukocyte Esterase Trace H (NEGATIVE) Urine RBC None seen (0-5/HPF) Urine WBC 1-5/hpf (0-5/HPF) Ur Squamous Epith Cells 1-5 /hpf (0-5/HPF) Urine Bacteria Occasional (0-1) (None) Hyaline Casts 1-5/lpf (None) Ur Culture Indicated? Specimen cultured Vol Urine Centrifuged 10ml (spun) Chlamy pneumoniae PCR Not detected (Not Detect) Adenovirus (PCR) Not detected (Not Detect) B.parapertussis DNA PCR Not detected (Not Detecte) Coronavirus OC43 (PCR) Not detected (Not Detect) Coronavirus HKU1 (PCR) Not detected (Not Detect) Coronavirus 229E (PCR) Not detected (Not Detect) SARS-CoV-2 (PCR) Not detected (Not Detecte) Coronavirus NL63 (PCR) Not detected (Not Detect) Human Metapneumovir PCR Not detected (Not Detect) Influenza Type A (PCR) Not detected (Not Detect) Influenza Type B (PCR) Not detected (Not Detect) M. pneumoniae (PCR) Not detected (Not Detect) Parainfluenza 1 (PCR) Not detected (Not Detect) Parainfluenza 2 (PCR) Not detected (Not Detect) Parainfluenza 3 (PCR) Not detected (Not Detect) Parainfluenza 4 (PCR) Not detected (Not Detect) RSV (PCR) Not detected (Not Detect) Entero/Rhino (PCR) Not detected (Not Detect) Imaging Data Chest x-ray: Radiologist's Impression: PROCEDURE: XR CHEST 1V INDICATIONS: DYSPNEA, COUGH TECHNIQUE: One view of the chest was acquired. COMPARISON: [facility], , XR CHEST 1V, 10/03/2023, 17:30. FINDINGS: Surgical changes and devices: None. Lungs and pleura: Lungs are clear. No pleural effusions or pneumothorax. Mediastinum: Mediastinal contours appear normal. Heart size is normal. Bones and chest wall: No suspicious bony lesions. Overlying soft tissues appear unremarkable. IMPRESSION: No acute cardiopulmonary pathology. Dictated by: Nicola Benitez M.D. on 10/10/2023 at 20:01 Approved by: Nicola Benitez M.D. on 10/10/2023 at 20:02 CT scan - abdomen/pelvis: My Impression: PROCEDURE: CT ABDOMEN PELVIS W CON INDICATIONS: MIDEPIGASTRIC ABD PAIN, NAUSEA, LEUKOCYTOSIS TECHNIQUE: After the administration of intravenous contrast, axial sections acquired from the lung bases to the pubic symphysis. Coronal and sagittal reformats were performed. For radiation dose reduction, the following was used: automated exposure control, adjustment of mA and/or kV according to patient size. COMPARISON: [facility], CT, CT ABDOMEN PELVIS W CON, 06/14/2023, 21:33. FINDINGS: Image quality: Diagnostic. Lower Chest: No significant findings. ABDOMEN: Liver: No solid mass. Subcentimeter hypodensity again seen in right hepatic lobe unchanged from prior study and likely represent hepatic cyst. Gallbladder: Gallbladder is surgically absent. Biliary ducts: No biliary dilation. Pancreas: No ductal dilation. Spleen: Size is within normal limits. Adrenal Glands: No adrenal nodules. Kidneys and Ureters: No hydronephrosis. No solid mass. No complex renal cystic lesion which requires follow up. Stomach and Bowel: Moderate fecal stasis in the colon is seen. There is no bowel obstruction. There is a small hiatal hernia and questionable gastric wall thickening. No discrete gastric wall mass. No small bowel or colon wall thickening. No abscess collection. Peritoneum: No abnormal intraperitoneal fluid. No free air. Ventral Wall: No significant ventral hernia. Abdominal Nodes: No retroperitoneal or mesenteric adenopathy by size criteria. Vessels: Aorta and inferior vena cava are normal in size. PELVIS: Pelvic Organs: Unremarkable. Bladder: No bladder wall thickening, accounting for underdistention. Pelvic Nodes: No enlarged lymph nodes. Miscellaneous: No inguinal hernias are seen. Bones: No aggressive osseous abnormality. Stable possible bone island in right iliac bone unchanged from prior study. IMPRESSION: 1. Small hiatal hernia and questionable gastric wall thickening, low-grade gastritis cannot be excluded. 2. [id number] constipation. No small bowel or colon wall thickening. No abscess collection. No free fluid or free air. Dictated by: Nicola Benitez M.D. on 10/11/2023 at 0:19 Approved by: Niocla Benitez M.D. on 10/11/2023 at 0:25 MDM Narrative Medical decision making narrative: Chronically unwell appearing but not acutely toxic patient presenting after several hospitalizations for worsening shortness of breath and fatigue. Able to speak in complete sentences, lungs are clear to auscultation bilaterally, however patient does appear to be profoundly debilitated and barely able to adjust herself in the bed. Based on history cultures, lactic acid, procalcitonin ordered. Laboratory work is significant for leukocytosis of 21. When patient was discharged from the hospital her white blood cell count was 14. She was discharged on 2 days of prednisone, however this has ended and I do not believe this will cause such a elevation in her white blood cell count. Urinalysis without sign of infection. Chest x-ray shows no evidence of pneumonia. Patient continuing to complain of nausea and now complaining of worsening midepigastric abdominal pain. Repeat abdominal exam is soft, no peritoneal signs, however in absence of other source of possible leukocytosis or other symptoms we will order CT of the abdomen and pelvis. CT of the abdomen and pelvis shows constipation as well as questionable low-grade gastritis. No other acute abnormalities identified. Patient is continuing to feel very symptomatic in his so weak she was unable to get out of bed or walk unassisted. We will admit for observation and further treatment. Discharge Plan Departure Patient Disposition: Admitted as Observation Clinical Impression: Leukocytosis Qualifiers: Leukocytosis type: unspecified Qualified Code(s): D72.829 - Elevated white blood cell count, unspecified Fatigue Qualifiers: Fatigue type: unspecified Qualified Code(s): R53.83 - Other fatigue Admit Date/Time: 10/11/23 01:50 Admit Provider: Sanket Gastelum
--- NOTE | 2023-10-10 19:33 | DI.RAD.S_ITS ---
PROCEDURE: XR CHEST 1V INDICATIONS: DYSPNEA, COUGH TECHNIQUE: One view of the chest was acquired. COMPARISON: [facility], CR, XR CHEST 1V, 10/03/2023, 17:30. FINDINGS: Surgical changes and devices: None. Lungs and pleura: Lungs are clear. No pleural effusions or pneumothorax. Mediastinum: Mediastinal contours appear normal. Heart size is normal. Bones and chest wall: No suspicious bony lesions. Overlying soft tissues appear unremarkable. IMPRESSION: No acute cardiopulmonary pathology. Dictated by: Nicola Benitez M.D. on 10/10/2023 at 20:01 Approved by: Nicola Benitez M.D. on 10/10/2023 at 20:02
[2023-10-10 21:29] LABS: Appearance Urine UA CLEAR; Bilirubin Urine UA NEGATIVE (NEGATIVE); Color Urine UA YELLOW; Glucose Urine UA NEGATIVE (Negative); Ketones Urine UA NEGATIVE (NEGATIVE); Leukocyte Esterase Urine UA TRACE (NEGATIVE); Nitrite Urine UA NEGATIVE (Negative); Occult Blood Urine UA NEGATIVE (Negative); Protein Urine UA NEGATIVE (Negative); Urobilinogen Urine UA 0.2 E.U./dL (0.2)
[2023-10-10 21:32] LABS: Adenovirus Not Detected (Not Detect); B. parapertussis Not Detected (Not Detecte); Bordetella pertussis Not Detected (Not Detect); Chlamydophila pneumoniae Not Detected (Not Detect); Coronavirus 229E Not Detected (Not Detect); Coronavirus HKU1 Not Detected (Not Detect); Coronavirus NL 63 Not Detected (Not Detect); Coronavirus OC43 Not Detected (Not Detect); Human Metapneumovirus Not Detected (Not Detect); Human Rhinovirus/Enterovirus Not Detected (Not Detect); Influenza A Not Detected (Not Detect); Influenza B Not Detected (Not Detect); Mycoplasma pneumoniae Not Detected (Not Detect); Parainfluenza Virus 1 Not Detected (Not Detect); Parainfluenza Virus 2 Not Detected (Not Detect); Parainfluenza Virus 3 Not Detected (Not Detect); Parainfluenza Virus 4 Not Detected (Not Detect); Respiratory Syncytial Virus Not Detected (Not Detect); SARS- CoV-2 Not Detected (Not Detecte)
[2023-10-10 21:36] LABS: Bacteria Urine Occasional (0-1); RBC Urine None Seen (0-5/HPF); Squamous Epithelial Cell Urine 1-5 /HPF (0-5/HPF); Urine Volume 10mL (spun); WBC Urine 1-5/HPF (0-5/HPF)
[2023-10-10 21:37] LABS: Culture Indicated Urine Specimen Cultured; Hyaline Casts Urine 1-5/LPF
[2023-10-10 21:44] LABS: Add Manual Diff / Slide Review NO; Basophils Absolute Auto 200 /uL (0-100); Eosinophils Absolute Auto 400 /uL (0-450); Eosinophils Percent Auto 1.8 % (2-4); Hematocrit 39.4 % (36-46); Hemoglobin 13.3 g/dL (12.0-16.0); Lymphocytes Absolute Auto 6700 /uL (1100-4500); Lymphocytes Percent Auto 31.6 % (25-40); Mean Corpuscular HGB Conc 33.8 % (30-36); Mean Corpuscular Hemoglobin 30.8 PG (26-34); Mean Corpuscular Volume 91.2 fL (80-100); Monocytes Absolute Auto 900 /uL (0-900); Monocytes Percent Auto 4.2 % (3-14); Neutrophils Absolute Auto 13000 /uL (1500-7000); Neutrophils Percent Auto 61.4 % (50-75); Platelet Count 265 X10^3/uL (150-400); Red Blood Cell Count 4.32 X10^6/uL (4.0-5.2); White Blood Cell Count 21.2 X10^3/uL (4.5-11.0)
[2023-10-10 21:52] LABS: Prothrombin Time 11.4 SECONDS (9.4-12.5)
[2023-10-10 21:56] LABS: Alanine Aminotransferase 32 IU/L (<35); Albumin 3.8 g/dL (3.5-5.0); Albumin Globulin Ratio 1.2 (1.0-2.8); Alkaline Phosphatase 78 U/L (38-126); Aspartate Aminotransferase 25 IU/L (14-36); BUN Creatinine Ratio 35.1 (6-22); Bilirubin Total 0.9 mg/dL (0.2-1.3); Blood Urea Nitrogen 53 mg/dL (7-17); Calcium 9.5 mg/dL (8.4-10.2); Carbon Dioxide 32 mmol/L (22-32); Chloride 96 mmol/L (98-107); Creatine Kinase 22 U/L (30-135); Estimated Glomerular Filt Rate 36 mL/min (>60); Globulin 3.1 g/dL (1.7-4.1); Glucose 189 mg/dL (80-110); HEMOLYSIS < 15 (0-50); Magnesium 1.6 mg/dL (1.6-2.3); Potassium 3.9 mmol/L (3.4-5.1); Sodium 135 mmol/L (137-145); Total Protein 6.9 g/dL (6.3-8.2)
[2023-10-10 22:08] LABS: NT-proBNP (BNP-Adult 18+) 117 pg/mL (<450); Troponin I < 0.012 ng/mL (0.01-0.034)
[2023-10-10 22:12] LABS: Procalcitonin 0.08 ng/mL (<0.5)
--- NOTE | 2023-10-10 23:33 | DI.CT.S_ITS ---
PROCEDURE: CT ABDOMEN PELVIS W CON INDICATIONS: MIDEPIGASTRIC ABD PAIN, NAUSEA, LEUKOCYTOSIS TECHNIQUE: After the administration of intravenous contrast, axial sections acquired from the lung bases to the pubic symphysis. Coronal and sagittal reformats were performed. For radiation dose reduction, the following was used: automated exposure control, adjustment of mA and/or kV according to patient size. COMPARISON: [facility], CT, CT ABDOMEN PELVIS W CON, 06/14/2023, 21:33. FINDINGS: Image quality: Diagnostic. Lower Chest: No significant findings. ABDOMEN: Liver: No solid mass. Subcentimeter hypodensity again seen in right hepatic lobe unchanged from prior study and likely represent hepatic cyst. Gallbladder: Gallbladder is surgically absent. Biliary ducts: No biliary dilation. Pancreas: No ductal dilation. Spleen: Size is within normal limits. Adrenal Glands: No adrenal nodules. Kidneys and Ureters: No hydronephrosis. No solid mass. No complex renal cystic lesion which requires follow up. Stomach and Bowel: Moderate fecal stasis in the colon is seen. There is no bowel obstruction. There is a small hiatal hernia and questionable gastric wall thickening. No discrete gastric wall mass. No small bowel or colon wall thickening. No abscess collection. Peritoneum: No abnormal intraperitoneal fluid. No free air. Ventral Wall: No significant ventral hernia. Abdominal Nodes: No retroperitoneal or mesenteric adenopathy by size criteria. Vessels: Aorta and inferior vena cava are normal in size. PELVIS: Pelvic Organs: Unremarkable. Bladder: No bladder wall thickening, accounting for underdistention. Pelvic Nodes: No enlarged lymph nodes. Miscellaneous: No inguinal hernias are seen. Bones: No aggressive osseous abnormality. Stable possible bone island in right iliac bone unchanged from prior study. IMPRESSION: 1. Small hiatal hernia and questionable gastric wall thickening, low-grade gastritis cannot be excluded. 2. [id number] constipation. No small bowel or colon wall thickening. No abscess collection. No free fluid or free air. Dictated by: Nicola Benitez M.D. on 10/11/2023 at 0:19 Approved by: Nicola Benitez M.D. on 10/11/2023 at 0:25
[2023-10-10 23:49] LABS: Lipase 106 U/L (23-300)
[2023-10-10] MEDS: METOCLOPRAMIDE 10 MG/2 ML INJ IV (23:51)
[2023-10-11] VITALS (13 sets, daily range): BP systolic 102–145; BP diastolic 47–80; PULSE 93–134; RESP 16–23; TEMP 35.7–36.4; O2SAT 90–96; BMI 41.8
[2023-10-11] MEDS: cefTRIAXone 2,000 MG in SODIUM CHLORIDE 0.9% 100 ML 200 MG IV (02:21)
--- NOTE | 2023-10-11 05:17 | P.HP_ITS ---
History of Present Illness History of Present Illness Date Patient Seen: 10/11/23 Time Patient Seen: 03:15 Chief complaint: Increased SOB, Lethargic Narrative: 77 years old female with a past medical history of hypertension, diabetes, fibromyalgia, depression, recent hospitalization for respiratory failure with parainfluenza infection complicated by sepsis with acute kidney injury and discharged to the rehab now brought back from the rehab to the hospital for progressive weakness with shortness of breath and generalized fatigue. Initial only patient did improve and at the time of discharge her numbers had improved significantly. White count did drop to 14.5 and O2 saturation was fairly stable. Patient had received IV Rocephin and azithromycin and eventually discharged on oral cephalosporin with the prednisone. Now returns back to the emergency room for progressive fatigue with generalized weakness and not able to participate in activities. On evaluation patient was saturating in the high 90s on room air further workup showed a white count of 21.2 with a BUN of 53 and a creatinine of 1.51. Urine analysis shows trace leukocyte esterase and negative for nitrites. The viral panel is negative. Chest x-ray shows no acute cardiopulmonary process. CT abdomen and pelvis shows small constipation but otherwise no acute process. Given the persistent weakness, patient was admitted for further evaluation [facility] Medical History Secondhand smoke exposure Lichen sclerosus et atrophicus Microscopic hematuria Urge incontinence Hx of migraine headaches History of depression History of chronic urinary tract infection History of arthritis Peripheral neuropathy Depression Hyperlipidemia Fibromyalgia Hypertension Lower leg edema Diabetes Surgical History Hx of abdominal hysterectomy Hx of breast biopsy Hx of total knee replacement Hx of cholecystectomy Hx of appendectomy Family History Mother Cancer CVA (cerebral vascular accident) Hyperlipidemia Hypertension Father Hypertension Hyperlipidemia CAD (coronary artery disease) Sister Hyperlipidemia Hypertension Diabetes mellitus Multiple kidney stones Migraines Brother Hyperlipidemia Hypertension Migraines Eczema Social History marital status: number of children: 4 household members: none lives independently: Yes Smoking Status: Never smoker alcohol intake: current caffeine: Yes Type(s) of exercise: walking frequency: 3-4 times per week duration: 15-30 minutes/day Meds Home Medications and Allergies Home Medications Medication Instructions Recorded Confirmed Type duloxetine 20 mg capsule,delayed 20 mg PO DAILY 06/15/23 10/11/23 History release propranolol 20 mg tablet 20 mg PO BEDTIME 06/15/23 10/11/23 History quetiapine 25 mg tablet 25 mg PO BEDTIME 06/15/23 10/11/23 History rosuvastatin 40 mg tablet 40 mg PO DAILY 06/15/23 10/11/23 History insulin glargine 100 unit/mL (3 34 unit SUBCUT 2100 07/05/23 10/11/23 History mL) subcutaneous pen (Lantus Solostar U-100 Insulin) potassium chloride 10 mEq 10 meq PO Q OTHER DAY 07/05/23 10/11/23 History tablet,extended release amlodipine 10 mg tablet 10 mg PO DAILY 09/27/23 10/11/23 History chlorthalidone 25 mg tablet 12.5 mg PO QAM 09/27/23 10/11/23 History clobetasol 0.05 % topical ointment 1 applic topical DAILY 09/27/23 10/11/23 History diclofenac sodium 75 mg 75 mg PO BID 09/27/23 10/11/23 History tablet,delayed release fluoxetine 20 mg tablet 40 mg PO DAILY 09/27/23 10/11/23 History furosemide 20 mg tablet 20 mg PO QAM 09/27/23 10/11/23 History glipizide 5 mg tablet 5 mg PO BID 09/27/23 10/11/23 History benzonatate 100 mg capsule 100 mg PO TID PRN Cough #30 caps 10/01/23 10/11/23 Rx cefdinir 300 mg capsule 300 mg PO BID 7 days #14 caps 10/08/23 10/11/23 Rx Allergies Allergy/AdvReac Type Severity Reaction Status Date / Time morphine AdvReac Nightmare Verified 10/10/23 19:34 Review of Systems Review of Systems Narrative: A 12 point review of system is negative unless otherwise stated in the present illness Exam Vital Signs (past 8 hours): - 10/10/23 21:30 10/10/23 22:00 10/10/23 22:00 Temperature Pulse Rate 89 85 Respiratory Rate 16 16 Blood Pressure 130/59 L Pulse Oximetry 96 95 Oxygen Delivery Method Oxygen Flow Rate 10/10/23 22:30 10/10/23 22:30 10/10/23 23:00 Temperature Pulse Rate 94 H 92 H Respiratory Rate 20 13 Blood Pressure 132/66 Pulse Oximetry 95 94 Oxygen Delivery Method Room Air Room Air Oxygen Flow Rate 10/10/23 23:00 10/10/23 23:30 10/10/23 23:30 Temperature Pulse Rate 98 H Respiratory Rate 19 Blood Pressure 135/67 138/70 Pulse Oximetry 90 L Oxygen Delivery Method Oxygen Flow Rate 10/11/23 00:07 10/11/23 00:08 10/11/23 00:08 Temperature Pulse Rate 95 H 93 H Respiratory Rate 23 19 Blood Pressure 126/62 Pulse Oximetry 90 L 91 Oxygen Delivery Method Oxygen Flow Rate 10/11/23 00:30 10/11/23 01:00 10/11/23 01:00 Temperature Pulse Rate 126 H 99 H Respiratory Rate 18 Blood Pressure 129/65 Pulse Oximetry 90 L Oxygen Delivery Method Room Air Oxygen Flow Rate 10/11/23 01:30 10/11/23 01:30 10/11/23 02:00 Temperature Pulse Rate 97 H 100 H Respiratory Rate Blood Pressure 112/55 L Pulse Oximetry 90 L 92 Oxygen Delivery Method Room Air Oxygen Flow Rate 10/11/23 02:00 10/11/23 02:16 10/11/23 02:30 Temperature Pulse Rate 98 H Respiratory Rate Blood Pressure 102/56 L Pulse Oximetry 93 Oxygen Delivery Method Room Air Oxygen Flow Rate 10/11/23 02:30 10/11/23 03:00 Temperature 96.8 F L Pulse Rate 106 H Respiratory Rate 18 21 Blood Pressure 106/58 L 145/80 H Pulse Oximetry 94 Oxygen Delivery Method Oxygen Flow Rate 0 Oxygen Delivery Method Room Air Oxygen Flow Rate 0 Narrative Exam Narrative: Air entry decreased bilaterally at the base. No tenderness noted in the abdomen Objective Labs 10/10/23 21:35 10/10/23 21:35 Labs: Laboratory Results - last 24 hr 10/10/23 10/10/23 10/10/23 20:22 21:00 21:35 WBC 21.2 H RBC 4.32 Hgb 13.3 Hct 39.4 MCV 91.2 MCH 30.8 MCHC 33.8 RDW 14.0 Plt Count 265 Neut % (Auto) 61.4 Lymph % (Auto) 31.6 [place] % (Auto) 4.2 Eos % (Auto) 1.8 L Baso % (Auto) 1.0 Neut # (Auto) 85213 H Lymph # (Auto) 6700 H [place] # (Auto) 900 Eos # (Auto) 400 Baso # (Auto) 200 H PT 11.4 INR 1.0 Sodium 135 L Potassium 3.9 Chloride 96 L Carbon Dioxide 32 BUN 53 H Creatinine 1.51 H Estimated GFR 36 L BUN/Creatinine Ratio 35.1 H Glucose 189 H Calcium 9.5 Magnesium 1.6 Total Bilirubin 0.9 AST 25 ALT 32 Alkaline Phosphatase 78 Total Creatine Kinase 22 L Troponin I < 0.012 NT-Pro-B Natriuret Pep 117 Total Protein 6.9 Albumin 3.8 Globulin 3.1 Albumin/Globulin Ratio 1.2 Lipase 106 Procalcitonin 0.08 Urine Color Yellow Urine Appearance Clear Urine pH 5.0 Ur Specific [place] 1.010 Urine Protein Negative Urine Glucose (UA) Negative Urine Ketones Negative Urine Occult Blood Negative Urine Nitrate Negative Urine Bilirubin Negative Urine Urobilinogen 0.2 Ur Leukocyte Esterase Trace H Urine RBC None seen Urine WBC 1-5/hpf Ur Squamous Epith Cells 1-5 /hpf Urine Bacteria Occasional (0-1) Hyaline Casts 1-5/lpf Ur Culture Indicated? Specimen cultured Vol Urine Centrifuged 10ml (spun) Chlamy pneumoniae PCR Not detected Adenovirus (PCR) Not detected B.parapertussis DNA PCR Not detected Coronavirus OC43 (PCR) Not detected Coronavirus HKU1 (PCR) Not detected Coronavirus 229E (PCR) Not detected SARS-CoV-2 (PCR) Not detected Coronavirus NL63 (PCR) Not detected Human Metapneumovir PCR Not detected Influenza Type A (PCR) Not detected Influenza Type B (PCR) Not detected M. pneumoniae (PCR) Not detected Parainfluenza 1 (PCR) Not detected Parainfluenza 2 (PCR) Not detected Parainfluenza 3 (PCR) Not detected Parainfluenza 4 (PCR) Not detected RSV (PCR) Not detected Entero/Rhino (PCR) Not detected Assessment & Plan Assessment & Plan narrative: 77 years old female with a past medical history of hypertension, diabetes, fibromyalgia, depression, recent hospitalization for respiratory failure with parainfluenza infection complicated by sepsis with acute kidney injury and discharged to the rehab now brought back from the rehab to the hospital for progressive weakness with shortness of breath and generalized fatigue. Initial only patient did improve and at the time of discharge her numbers had improved significantly. White count did drop to 14.5 and O2 saturation was fairly stable. Patient had received IV Rocephin and azithromycin and eventually discharged on oral cephalosporin with the prednisone. Now returns back to the emergency room for progressive fatigue with generalized weakness and not able to participate in activities. On evaluation patient was saturating in the high 90s on room air further workup showed a white count of 21.2 with a BUN of 53 and a creatinine of 1.51. Urine analysis shows trace leukocyte esterase and negative for nitrites. The viral panel is negative. Chest x-ray shows no acute cardiopulmonary process. CT abdomen and pelvis shows small constipation but otherwise no acute process. Given the persistent weakness, patient was admitted for further evaluation 1 generalized weakness with progressive fatigue. May be an early phase of urinary tract infection versus dehydration. Respiratory status appears to have stabilized at this time but urine shows trace WBCs while the electrolytes shows increased BUN and creatinine with evidence of poor p.o. intake and dehydration. Treatment is supportive for now. Gentle IV hydration if able to tolerate and hold off on the diuretics while continuing the IV Rocephin initiated in the emergency room 2 hypertension. Resume the home amlodipine/propranolol but hold the home Lasix/chlorthalidone and lisinopril due to renal dysfunction with poor p.o. intake and acute kidney injury 3 depression resume the home fluoxetine 4 diabetes mellitus type 2 resume the home medications including Lantus/glipizide with insulin sliding scale 5 acute kidney injury. Hold off on the diuretics and OSVALDO inhibitors for now and also hold home oral diclofenac. Trend renal function closely 6 generalized weakness with gait instability consult physical therapy for further input 7 DVT prophylaxis will be with Lovenox 8 anxiety resume home Seroquel 9.Fungal skin infection in the groin folds. Nystatin cream For now patient is a full code and being admitted under observation status. Patient was evaluated with the help of video communication device. Provider is located in [facility] remotely and time spent is 10 minutes
[2023-10-11] MEDS: ONDANSETRON 4 MG/2 ML INJ IV ×3 (05:26→20:20)
[2023-10-11] MEDS: POTASSIUM CHLORIDE 10 MEQ TAB PO (05:38)
--- NOTE | 2023-10-11 07:41 | PM.HP.1 ---
History of Present Illness History of Present Illness Date Patient Seen: 10/11/23 Time Patient Seen: 09:10 Date of Onset of Symptoms: 10/09/23 Chief complaint: Increased SOB, Lethargic Narrative: From night doctor: 77 years old female with a past medical history of hypertension, diabetes, fibromyalgia, depression, recent hospitalization for respiratory failure with parainfluenza infection complicated by sepsis with acute kidney injury and discharged to the rehab now brought back from the rehab to the hospital for progressive weakness with shortness of breath and generalized fatigue. Initial only patient did improve and at the time of discharge her numbers had improved significantly. White count did drop to 14.5 and O2 saturation was fairly stable. Patient had received IV Rocephin and azithromycin and eventually discharged on oral cephalosporin with the prednisone. Now returns back to the emergency room for progressive fatigue with generalized weakness and not able to participate in activities. On evaluation patient was saturating in the high 90s on room air further workup showed a white count of 21.2 with a BUN of 53 and a creatinine of 1.51. Urine analysis shows trace leukocyte esterase and negative for nitrites. The viral panel is negative. Chest x-ray shows no acute cardiopulmonary process. CT abdomen and pelvis shows small constipation but otherwise no acute process. Given the persistent weakness, patient was admitted for further evaluation. Additional history: She was discharged home on October 06 after an admission for the parainfluenza virus on oral antibiotics, specifically cefdinir as well as oral prednisone. The patient did well for about 2-1/2-3 days and then developed profound fatigue as well as nausea. No fevers or chills. No recurrent rhinorrhea, cough or sore throat. No dyspnea. She also denies diarrhea although she was constipated for about 3 days and did finally have a relatively large bowel movement. No new skin rash other than a groin Sue which is currently being treated. Blood cultures were drawn and are pending. She was too nauseated to eat breakfast this morning. [facility] Medical History Secondhand smoke exposure Lichen sclerosus et atrophicus Microscopic hematuria Urge incontinence Hx of migraine headaches History of depression History of chronic urinary tract infection History of arthritis Peripheral neuropathy Depression Hyperlipidemia Fibromyalgia Hypertension Lower leg edema Diabetes Surgical History Hx of abdominal hysterectomy Hx of breast biopsy Hx of total knee replacement Hx of cholecystectomy Hx of appendectomy Family History Mother Cancer CVA (cerebral vascular accident) Hyperlipidemia Hypertension Father Hypertension Hyperlipidemia CAD (coronary artery disease) Sister Hyperlipidemia Hypertension Diabetes mellitus Multiple kidney stones Migraines Brother Hyperlipidemia Hypertension Migraines Eczema Social History marital status: number of children: 4 household members: none lives independently: Yes Smoking Status: Never smoker alcohol intake: current caffeine: Yes Type(s) of exercise: walking frequency: 3-4 times per week duration: 15-30 minutes/day Meds Home Medications and Allergies Home Medications Medication Instructions Recorded Confirmed Type duloxetine 20 mg capsule,delayed 20 mg PO DAILY 06/15/23 10/11/23 History release propranolol 20 mg tablet 20 mg PO BEDTIME 06/15/23 10/11/23 History quetiapine 25 mg tablet 25 mg PO BEDTIME 06/15/23 10/11/23 History rosuvastatin 40 mg tablet 40 mg PO DAILY 06/15/23 10/11/23 History insulin glargine 100 unit/mL (3 34 unit SUBCUT 2100 07/05/23 10/11/23 History mL) subcutaneous pen (Lantus Solostar U-100 Insulin) potassium chloride 10 mEq 10 meq PO Q OTHER DAY 07/05/23 10/11/23 History tablet,extended release amlodipine 10 mg tablet 10 mg PO DAILY 09/27/23 10/11/23 History chlorthalidone 25 mg tablet 12.5 mg PO QAM 09/27/23 10/11/23 History clobetasol 0.05 % topical ointment 1 applic topical DAILY 09/27/23 10/11/23 History diclofenac sodium 75 mg 75 mg PO BID 09/27/23 10/11/23 History tablet,delayed release fluoxetine 20 mg tablet 40 mg PO DAILY 09/27/23 10/11/23 History furosemide 20 mg tablet 20 mg PO QAM 09/27/23 10/11/23 History glipizide 5 mg tablet 5 mg PO BID 09/27/23 10/11/23 History benzonatate 100 mg capsule 100 mg PO TID PRN Cough #30 caps 10/01/23 10/11/23 Rx cefdinir 300 mg capsule 300 mg PO BID 7 days #14 caps 10/08/23 10/11/23 Rx Allergies Allergy/AdvReac Type Severity Reaction Status Date / Time morphine AdvReac Nightmare Verified 10/10/23 19:34 Review of Systems Review of Systems Narrative: All else reviewed and otherwise unremarkable except as noted in the history and physical. Exam Vital Signs (past 8 hours): - 10/11/23 00:07 10/11/23 00:08 10/11/23 00:08 Temperature Pulse Rate 95 H 93 H Respiratory Rate 23 19 Blood Pressure 126/62 Pulse Oximetry 90 L 91 Oxygen Delivery Method Oxygen Flow Rate 10/11/23 00:30 10/11/23 01:00 10/11/23 01:00 Temperature Pulse Rate 126 H 99 H Respiratory Rate 18 Blood Pressure 129/65 Pulse Oximetry 90 L Oxygen Delivery Method Room Air Oxygen Flow Rate 10/11/23 01:30 10/11/23 01:30 10/11/23 02:00 Temperature Pulse Rate 97 H 100 H Respiratory Rate Blood Pressure 112/55 L Pulse Oximetry 90 L 92 Oxygen Delivery Method Room Air Oxygen Flow Rate 10/11/23 02:00 10/11/23 02:16 10/11/23 02:30 Temperature Pulse Rate 98 H Respiratory Rate Blood Pressure 102/56 L Pulse Oximetry 93 Oxygen Delivery Method Room Air Oxygen Flow Rate 10/11/23 02:30 10/11/23 03:00 Temperature 96.8 F L Pulse Rate 106 H Respiratory Rate 18 21 Blood Pressure 106/58 L 145/80 H Pulse Oximetry 94 Oxygen Delivery Method Oxygen Flow Rate 0 Oxygen Delivery Method Room Air Oxygen Flow Rate 0 Narrative Exam Narrative: NAD, alert and oriented, fluent speech, calm. Flat affect. Normocephalic skull, EOMI, anicteric sclera, symmetric pupils. Oropharynx unremarkable, no droop. Neck supple, midline trachea, no adenopathy. Lungs clear, normal rate and effort. Heart regular, no murmur gallop or rub. Abdomen is soft, non distended and non tender. Extremities are free of edema. Skin is free of rash or lesions. Joints are not swollen or deformed. Judgment appears to be normal. Objective Imaging CT scan - abdomen: Radiologist's impression: 1. Small hiatal hernia and questionable gastric wall thickening, low-grade gastritis cannot be excluded. 2. [id number] constipation. No small bowel or colon wall thickening. No abscess collection. No free fluid or free air. Chest x-ray: Radiologist's impression: No acute cardiopulmonary pathology. Labs 10/10/23 21:35 10/10/23 21:35 Labs: Laboratory Results - last 24 hr 10/10/23 10/10/23 10/10/23 20:22 21:00 21:35 WBC 21.2 H RBC 4.32 Hgb 13.3 Hct 39.4 MCV 91.2 MCH 30.8 MCHC 33.8 RDW 14.0 Plt Count 265 Neut % (Auto) 61.4 Lymph % (Auto) 31.6 [place] % (Auto) 4.2 Eos % (Auto) 1.8 L Baso % (Auto) 1.0 Neut # (Auto) 13751 H Lymph # (Auto) 6700 H [place] # (Auto) 900 Eos # (Auto) 400 Baso # (Auto) 200 H PT 11.4 INR 1.0 Sodium 135 L Potassium 3.9 Chloride 96 L Carbon Dioxide 32 BUN 53 H Creatinine 1.51 H Estimated GFR 36 L BUN/Creatinine Ratio 35.1 H Glucose 189 H Calcium 9.5 Magnesium 1.6 Total Bilirubin 0.9 AST 25 ALT 32 Alkaline Phosphatase 78 Total Creatine Kinase 22 L Troponin I < 0.012 NT-Pro-B Natriuret Pep 117 Total Protein 6.9 Albumin 3.8 Globulin 3.1 Albumin/Globulin Ratio 1.2 Lipase 106 Procalcitonin 0.08 Urine Color Yellow Urine Appearance Clear Urine pH 5.0 Ur Specific [place] 1.010 Urine Protein Negative Urine Glucose (UA) Negative Urine Ketones Negative Urine Occult Blood Negative Urine Nitrate Negative Urine Bilirubin Negative Urine Urobilinogen 0.2 Ur Leukocyte Esterase Trace H Urine RBC None seen Urine WBC 1-5/hpf Ur Squamous Epith Cells 1-5 /hpf Urine Bacteria Occasional (0-1) Hyaline Casts 1-5/lpf Ur Culture Indicated? Specimen cultured Vol Urine Centrifuged 10ml (spun) Chlamy pneumoniae PCR Not detected Adenovirus (PCR) Not detected B.parapertussis DNA PCR Not detected Coronavirus OC43 (PCR) Not detected Coronavirus HKU1 (PCR) Not detected Coronavirus 229E (PCR) Not detected SARS-CoV-2 (PCR) Not detected Coronavirus NL63 (PCR) Not detected Human Metapneumovir PCR Not detected Influenza Type A (PCR) Not detected Influenza Type B (PCR) Not detected M. pneumoniae (PCR) Not detected Parainfluenza 1 (PCR) Not detected Parainfluenza 2 (PCR) Not detected Parainfluenza 3 (PCR) Not detected Parainfluenza 4 (PCR) Not detected RSV (PCR) Not detected Entero/Rhino (PCR) Not detected Assessment & Plan Assessment & Plan narrative: 1. Generalized weakness with progressive fatigue. Present on admission and active. -May be an early phase of urinary tract infection versus dehydration. Respiratory status appears to have stabilized at this time but urine shows trace WBCs while the electrolytes shows increased BUN and creatinine with evidence of poor p.o. intake and dehydration. -Treatment is supportive for now. Gentle IV hydration if able to tolerate and hold off on the diuretics while continuing the IV Rocephin initiated in the emergency room 2. Leukocytosis, present on admission and active. -follow and pending blood cultures. 3. Hypertension. Stable. -Resume the home amlodipine/propranolol but hold the home Lasix/chlorthalidone and lisinopril due to renal dysfunction with poor p.o. intake and acute kidney injury 4. Ddepression, stbale. -resume the home fluoxetine 5. Diabetes mellitus type 2, stable. - resume the home medications including Lantus/glipizide with insulin sliding scale 6. Acute kidney injury, present on admission and active. -Hold off on the diuretics and OSVALDO inhibitors for now and also hold home oral diclofenac. Trend renal function closely 7. Anxiety, stable. -resume home Seroquel 8. Fungal skin infection in the groin folds. Nystatin cream DVT prophylaxis will be with Lovenox For now patient is a full code and being admitted under observation status. Time Spent With Patient Time with patient: 30 to 49 minutes with 50% spent counseling/coordinating care Quality MIPS - Admit I confirm the patient?s Advance Care Plan is present, Code status is documented, Surrogate decision maker is in patient?s record [If Yes, STOP here]: Yes MIPS - Meds 'Current medications' to include all prescriptions, [id number] products, herbals, cannabis/cannabidiol products, and vitamin/mineral/dietary (nutritional) supplements. I have utilized all available resources to obtain, update, or review the patient?s current medications. [If Yes, STOP here]: Yes
[2023-10-11] MEDS: INSULIN LISPRO 100 UNIT/ML 3ML VIAL SUBCUT ×3 (08:34→17:14)
[2023-10-11] MEDS: AMLODIPINE 5 MG TABLET 10 MG PO (08:35)
[2023-10-11] MEDS: glipiZIDE 5 MG TABLET PO (08:36)
[2023-10-11] MEDS: FLUoxetine 20 MG CAPSULE 40 MG PO (08:36)
[2023-10-11] MEDS: DULOXETINE 20 MG CAPSULE PO (08:36)
[2023-10-11] MEDS: HYDROCODONE/ACET 5/325 TABLET 1 TAB PO (08:36)
[2023-10-11] MEDS: NYSTATIN CREAM 30 GM 1 APPLIC TOP ×2 (08:37→20:59)
[2023-10-11] MEDS: ATORVASTATIN 20 MG TABLET 80 MG PO (08:37)
[2023-10-11] MEDS: HYDROCODONE/ACET 5/325 TABLET 2 TAB PO ×3 (12:24→21:00)
[2023-10-11] MEDS: INSULIN GLARGINE 100 UNIT/ML 3ML PEN 34 UNIT SUBCUT (14:32)
[2023-10-11] MEDS: SODIUM CHLORIDE 0.9% 1,000 ML 1000 ML IV (14:37)
--- NOTE | 2023-10-11 14:48 | CM.DANOTE ---
Initial DCP Assessment Note Pt is a 77 yo female, resident at [facility], returns with persistent and increased SOB, weakness and nausea. Patient admitted OBS for supportive care of early UTI, dehydration. Patient here 2.22-2.26 and 2.28-3.3 for same presentation. PCP: Monie Santamaria Payer: [facility] Reviewed chart, pt discussed in multidisciplinary rounds this morning. Patient expected to be here at least another 24-48 hours. Met w/patient this afternoon; patient reports she got home to [facility] Sunday and felt well. Staff at [facility] were responsive and kind. Patient was able to fill her abx Rx Sunday morning at [facility]. On Sunday, patient woke up feeling ill again. Patient further states that once she is feeling better she would like to return to [facility] it's my home. Patient calls for assist as needed and staff can assist with bathing, dressing, toileting as needed. Patient typically walks w/walker at baseline. Therapy evals might be helpful when patient is feeling well enough to participate. Patient gave this EDUCATION PROGRAM COORDINATOR a copy of her updated DPOA ppk to have scanned into her chart. Patient has named her sister Edel Yip ([place], [place]) as her DPOA P [phone] and son Jarad Hercules ([place]) P [phone] as her back up. Patient explains her daughter Neyda is caring for her children and grandchildren and is not as readily available. Plan: Patient is eager to return home to [facility] when she feels better, likely via [facility] transport. Unless far below functional baseline, I don't think patient will be a SNF candidate. CM team following closely for coordination of discharge plan. RENZO Fernandes Discharge Planning/Care Management Advanced directive, confirm from FAMILY Start: 10/11/23 03:32 Freq: Q24H Status: Active Protocol: Document 10/11/23 03:32 MS (Rec: 10/11/23 03:33 MS [id number]) Advance Directive, confirm on record Time 03:32 Person contacted patient Copy received No CM Discharge Assessment Start: 10/11/23 14:26 Freq: Status: Active Protocol: Document 10/11/23 14:26 JW (Rec: 10/11/23 14:48 JW [id number]) Discharge Planning Assessment Assigned Senior Managing Director RENZO Onofre DPOA/Assigned Designee Name sister/DPOA Edel Yip ([place], [place]) P [phone] Advance Directives? Yes Advance Directives on File Yes: Asked that LAURA Alvarado scan these in History Provided By Patient,Medical Record Has Patient been admitted in last 30 Yes days? Comment Patient here 2.22-2.26 and 2. 28-3.3 Prior Living Arrangements Assisted Living Household Members none Type of transporation used prior to Relies on Others admit Facility Name Admitted From: [facility] Willing to Return to Facility? Yes Independent with ADL's No: Needs assist with higher ADLs Is patient alert and oriented? Yes Needs Assistance With Bathing,Meal Prep,Managing Medications,Home Chores / Shopping Comment Patient asks for help as needed although has been able to navigate indp w/walker, self transfer Patient/Family Preference Home with Home Health Comment Anticipate return to [facility] upon discharge, Sig , patient agreeable to this plan. Discharge Plan Assisted Living Facility Transportation Arrangement [facility] And Physician Leader Nola Sylvester vs [facility] transport Referrals Initiated Home Health Additional Comment Resumption of [facility]
[2023-10-11] MEDS: SODIUM CHLORIDE 0.9% 1,000 ML 500 ML IV ×2 (17:14→19:02)
[2023-10-11 19:05] LABS: Add Manual Diff / Slide Review NO; Basophils Absolute Auto 200 /uL (0-100); Basophils Percent Auto 1.1 % (0-2); Eosinophils Absolute Auto 500 /uL (0-450); Eosinophils Percent Auto 2.7 % (2-4); Hematocrit 35.5 % (36-46); Hemoglobin 12.2 g/dL (12.0-16.0); Lymphocytes Absolute Auto 4200 /uL (1100-4500); Mean Corpuscular HGB Conc 34.4 % (30-36); Mean Corpuscular Volume 90.1 fL (80-100); Monocytes Absolute Auto 1100 /uL (0-900); Monocytes Percent Auto 6.1 % (3-14); Neutrophils Absolute Auto 11700 /uL (1500-7000); Neutrophils Percent Auto 66.1 % (50-75); Platelet Count 228 X10^3/uL (150-400); Red Blood Cell Count 3.94 X10^6/uL (4.0-5.2); Red Cell Distribution Width 13.9 % (11.6-14.8); White Blood Cell Count 17.6 X10^3/uL (4.5-11.0)
[2023-10-11] MEDS: PROPRANOLOL 10 MG TABLET 20 MG PO (21:00)
[2023-10-11] MEDS: QUETIAPINE 25 MG TABLET PO (21:02)
[2023-10-11] MEDS: HEPARIN 5,000 UNIT/ML VIAL 5000 UNIT SUBCUT (21:02)
[2023-10-11] MEDS: cefTRIAXone 1,000 MG in SODIUM CHLORIDE 0.9% 100 ML 200 MG IV (22:57)
[2023-10-12 00:20] VITALS: BP 106/49; PULSE 74; RESP 20; TEMP 35.8; O2SAT 93
[2023-10-12 04:00] VITALS: BP 128/59; PULSE 76; RESP 18; TEMP 35.7; O2SAT 94
[2023-10-12] MEDS: ONDANSETRON 4 MG/2 ML INJ IV ×3 (05:21→21:03)
--- NOTE | 2023-10-12 07:36 | P.PN_ITS ---
Subjective Subjective Interval history: She was previously admitted with parainfluenza virus and respiratory failure. She was quite debilitated and had a long admission and ultimately went home to her assisted living. There she did well for very short time and then pain came profoundly weak and nauseated. Here she has been having intermittent nausea, severe weakness, as well as intermittent vomiting. She has also had a tachycardia with exertion which may relate to post URI inflammatory changes. She did get a fair amount of fluid yesterday which did improve the tachycardia for short term. Today she was quite tired and slept most of the day but her breathing feels relatively good. She did have a tachycardic to 112 with occupational therapy when getting up to the bathroom. Exam Vital Signs (past 8 hours): - 10/12/23 00:20 10/12/23 04:00 Temperature 96.4 F L 96.3 F L Pulse Rate 74 76 Respiratory Rate 20 18 Blood Pressure 106/49 L 128/59 L Pulse Oximetry 93 94 Oxygen Flow Rate 0 0 Oxygen Delivery Method Room Air Oxygen Flow Rate 0 Narrative Exam Narrative: NAD, alert and oriented. Fluent speech. Lungs are clear, normal rate and effort. Heart is regular, no murmur gallop or rub. Abdomen is soft, non distended. Extremities are free of edema. Objective Imaging Multiple : Radiologist's impression: CT Abdomen: 1. Small hiatal hernia and questionable gastric wall thickening, low-grade gastritis cannot be excluded. 2. Ntka-rc-rydyzslc constipation. No small bowel or colon wall thickening. No abscess collection. No free fluid or free air. CXR: No acute cardiopulmonary pathology. Labs 10/11/23 18:50 10/10/23 21:35 Labs: Laboratory Results - last 24 hr 10/11/23 18:50 WBC 17.6 H RBC 3.94 L Hgb 12.2 Hct 35.5 L MCV 90.1 MCH 31.0 MCHC 34.4 RDW 13.9 Plt Count 228 Neut % (Auto) 66.1 Lymph % (Auto) 24.0 L [place] % (Auto) 6.1 Eos % (Auto) 2.7 Baso % (Auto) 1.1 Neut # (Auto) 00742 H Lymph # (Auto) 4200 [place] # (Auto) 1100 H Eos # (Auto) 500 H Baso # (Auto) 200 H PFSH Medical History Secondhand smoke exposure Lichen sclerosus et atrophicus Microscopic hematuria Urge incontinence Hx of migraine headaches History of depression History of chronic urinary tract infection History of arthritis Peripheral neuropathy Depression Hyperlipidemia Fibromyalgia Hypertension Lower leg edema Diabetes Surgical History Hx of abdominal hysterectomy Hx of breast biopsy Hx of total knee replacement Hx of cholecystectomy Hx of appendectomy Family History Mother Cancer CVA (cerebral vascular accident) Hyperlipidemia Hypertension Father Hypertension Hyperlipidemia CAD (coronary artery disease) Sister Hyperlipidemia Hypertension Diabetes mellitus Multiple kidney stones Migraines Brother Hyperlipidemia Hypertension Migraines Eczema Social History marital status: number of children: 4 household members: none lives independently: Yes Smoking Status: Never smoker alcohol intake: current caffeine: Yes Type(s) of exercise: walking frequency: 3-4 times per week duration: 15-30 minutes/day Assessment & Plan Assessment & Plan narrative: 1. Generalized weakness with progressive fatigue. Present on admission and active. -May be an early phase of urinary tract infection versus dehydration. Respiratory status appears to have stabilized at this time but urine shows trace WBCs while the electrolytes shows increased BUN and creatinine with evidence of poor p.o. intake and dehydration. 2. Leukocytosis, present on admission and improving. -follow and pending blood cultures. 3. Hypertension. Stable. -Resume the home amlodipine/propranolol but hold the home Lasix/chlorthalidone and lisinopril due to renal dysfunction with poor p.o. intake and acute kidney injury 4. Depression, stable. -resume the home fluoxetine 5. Diabetes mellitus type 2, stable. - resume the home medications including Lantus/glipizide with insulin sliding scale 6. Acute kidney injury, present on admission and active. -Hold off on the diuretics and OSVALDO inhibitors for now and also hold home oral diclofenac. Trend renal function closely 7. Anxiety, stable. -resume home Seroquel 8. Fungal skin infection in the groin folds. Nystatin cream PLAN: We will give her an additional 500 of saline over the course of the evening. Continue to work on her with therapy. 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 He is her goal to return home to her assisted living facility. DVT prophylaxis will be with Lovenox
[2023-10-12 08:00] VITALS: BP 121/66; PULSE 85; RESP 22; TEMP 36.1; O2SAT 93
[2023-10-12] MEDS: FLUoxetine 20 MG CAPSULE 40 MG PO (08:55)
[2023-10-12] MEDS: DULOXETINE 20 MG CAPSULE PO (08:56)
[2023-10-12] MEDS: AMLODIPINE 5 MG TABLET 10 MG PO (08:56)
[2023-10-12] MEDS: ATORVASTATIN 20 MG TABLET 80 MG PO (08:56)
[2023-10-12] MEDS: NYSTATIN CREAM 30 GM 1 APPLIC TOP ×2 (11:53→20:57)
[2023-10-12] MEDS: HEPARIN 5,000 UNIT/ML VIAL 5000 UNIT SUBCUT ×2 (11:53→20:57)
[2023-10-12] MEDS: INSULIN LISPRO 100 UNIT/ML 3ML VIAL SUBCUT ×3 (11:55→22:29)
[2023-10-12 12:00] VITALS: BP 94/48; PULSE 83; RESP 22; TEMP 36; O2SAT 94
[2023-10-12] MEDS: INSULIN GLARGINE 100 UNIT/ML 3ML PEN 34 UNIT SUBCUT (12:40)
--- NOTE | 2023-10-12 14:50 | OT.IP.EVAL ---
Past Medical History (Last Reviewed 10/12/23 @ 16:32 by Sascha Blancas MD) Depression Diabetes Fibromyalgia History of arthritis History of chronic urinary tract infection History of depression Hx of migraine headaches Hyperlipidemia Hypertension Lichen sclerosus et atrophicus Lower leg edema Microscopic hematuria Peripheral neuropathy Secondhand smoke exposure Urge incontinence Surgical History (Last Reviewed 10/12/23 @ 16:32 by Sascha Blancas MD) Hx of abdominal hysterectomy Hx of appendectomy Hx of breast biopsy Hx of cholecystectomy Hx of total knee replacement Occupational Therapy Inpatient Evaluation/Re-Eval M1 PT/OT-IP Prior Functional Status Start: 10/12/23 16:32 Freq: NEEDED Status: Active Protocol: Document 10/12/23 16:32 [facility] (Rec: 10/12/23 16:54 [facility] [id number]) Medical Review Prior Functional Status Medical History Reviewed Yes Communication Independent Mobility and Gait Pt uses FWW all the time and recently use of wc the past 6 days to get to the dining room at her facility. Activities of Daily Living and IADL's Pt state her facility assists with showering, medication, light housekeeping and for toileting as needed. Social History Household Members none Living Arrangements Assisted Living Number of Floors (Floors) One Floor Home Environment High Toilet,Built-In Shower Seat Home Equipment Front Wheel Walker,Hand Held Shower,Grab Bars Near Toilet, Grab Bars In Shower M2 OT-IP Current Condition Start: 10/12/23 16:32 Freq: Status: Active Protocol: Document 10/12/23 16:32 [facility] (Rec: 10/12/23 16:54 [facility] [id number]) Occupational Therapy Current Condition Current Condition Evaluation Date 10/12/23 Treatment Diagnosis Dehydration vs UTI, generalized weakness Diagnosis Onset Date 10/11/23 M3 OT- IP Subjective and Pain Start: 10/12/23 16:32 Freq: Status: Active Protocol: Document 10/12/23 16:32 [facility] (Rec: 10/12/23 16:54 [facility] [id number]) OT- Subjective Occupational Therapy Visit Type Type Initial Evaluation Visit Start Time 14:50 Visit Stop Time 15:40 Occupational Therapy Visit Comments Patient Comments Pt agreed to get up. Patient/Caregiver Goals TO go back home. OT Pain Assessment Pain When Pain Assessed At Rest Pain Present Pain Present Denied Pain M4 OT- IP ADL's Start: 10/12/23 16:32 Freq: Status: Active Protocol: Document 10/12/23 16:32 [facility] (Rec: 10/12/23 16:54 [facility] [id number]) OT JAF-[id number] Comments OT Self-Feeding Comments Not at meal time. OT ADL-Grooming General Evaluation Grooming Ability Standby Assistance Areas Needing Assistance Retrieving/Set-up of Grooming Items Comments OT Grooming Comments While standing with FWW. OT ADL-Oral Care General Eval Oral Care Ability Independent Comments Oral Care Comments WHile standing. OT ADL-Dressing General Eval Lower Body Dressing Ability Moderate Assistance Areas Needing Assistance Underpants/Brief,Socks Comments OT Dressing Comments Assist to help get her feet into the brief and for socks. Pt has fibromyalgia and educated pt on use of LB dressing equipment especially during flare ups. OT ADL-Toileting General Evaluation Toileting Ability Moderate Assistance Areas Needing Assistance Manage Clothing Comments OT Toileting Comments Suggested use of toilet paper aid or bidet. Pt states has been incontinent for years and uses Depends and pads. Also suggested BSC as pt states uses the bathroom 2-3 times at night. OT ADL-Bathing Comments OT Bathing Comments Not performed. M5 OT- IP IADL's Start: 10/12/23 16:32 Freq: Status: Active Protocol: Document 10/12/23 16:32 [facility] (Rec: 10/12/23 16:54 [facility] [id number]) OT-Instrumental Activities of Daily Living Deficits IADL Deficits Identified Deficits Home Safety Awareness Awareness of Need for Assistance at Home Good Awareness Ability to Problem Solve Emergency Able to Problem Solve Situations Home Safety Comments Pt able to call for staff at assist as needed. Medication Management Medication Management Caregiver Administers Money Management Money Management Comments Pt states still does her finances. Meal Preparation Meal Preparation Caregiver Provides Assist Auto Rental Clerk Auto Rental Clerk Caregiver Provides Assist M6 OT- IP Functional Cognition Start: 10/12/23 16:32 Freq: Status: Active Protocol: Document 10/12/23 16:32 [facility] (Rec: 10/12/23 16:54 [facility] [id number]) Cognitive Factors Limiting Selfcare Function Cognitive Ability Level of Alertness Alert Patient Orientation Name,Age,Birthday,Month,Date, Year,Day of Week,Place, Situation Attention Span Ability Capable of Focused Attention, Capable of Sustained Attention Ability to Follow Commands Able to Follow One Step Commands Memory Description Short Term Impaired Cognitive Comments Cognitive Assessment Comments Pt able to follow commands for ADL and mobility needs. Pt may benefit from formal cognitive assessment as a little forgetful but may be due to possible UTI/ dehydration. Pt needing vc to keep the FWW closer to her. OT- Vision and Hearing OT- Hearing Assessment OT- Hearing Assessment WFL OT- Vision Assessment Visual Acuity Glasses For Reading Visual Attentiveness WFL Occular Pursuits WFL M7 OT- IP Mobility and Balance Start: 10/12/23 16:32 Freq: Status: Active Protocol: Document 10/12/23 16:32 [facility] (Rec: 10/12/23 16:54 [facility] [id number]) OT- Bed Mobility Assessment Rolling Level of Assistance Standby Assistance Supine to Sit Supine to Sit Assist Standby Assistance Scooting Scooting to Edge of Bed Standby Assistance OT-Transfer Assessment Sit to and From Stand Sit to and from Stand Contact Guard Assistance Transfers Transfer Ability Standby Assistance,Contact Guard Assistance Technique Transfer Destination Bed,Car Transfer Technique Stand Step Pivot Devices Transfer Assistive Devices Gait Belt,Front Wheeled Walker Comments Mobility Comments SBA to get out of bed CGA to stand to the FWW and initially close SBA and then when tiring needing CGA with FWW . Chair alarm placed on pt. OT- Balance Assessment Sitting Balance and Reactions Static Sitting Balance Ability Good Dynamic Sitting Balance Ability Fair Standing Balance and Reactions Static Standing Balance Ability Fair Dynamic Standing Balance Ability Fair M8 OT- IP Objective Assessments Start: 10/12/23 16:32 Freq: Status: Active Protocol: Document 10/12/23 16:32 [facility] (Rec: 10/12/23 16:54 [facility] [id number]) OT Gross Range of Motion Upper Extremity Range of Motion Assessment Within Functional Limits OT Strength Upper Extremity Strength Assessment Right Impaired Comments Strength Comments RUE 4-/5 to 4/5, LUE 4+/5. 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 M9 OT- IP Assessment and Plan Start: 10/12/23 16:32 Freq: Status: Active Protocol: Document 10/12/23 16:32 [facility] (Rec: 10/12/23 16:54 [facility] [id number]) OT Summary Assessment and Plan Potential Rehabilitation Potential Good Analytic Complexity at Evaluation Low Summary OT Impairments Pain,Strength,Balance, Functional Mobility,Grooming, Dressing,Toileting,Bathing, Toilet Transfers,Shower Transfers,Activity Tolerance Progress Towards Goals Slow Progress due to Medical Issues,Slow Progress due to Activity Tolerance Assessment Summary Pt low complexity and main barriers are decreased activity tolerance, weakness, and decreased dynamic balance. Pt lives at [facility] and will benefit from increased assist there and home health therapies especially for OT. Able to educated pt on energy conservation needs as pt states has fibromyalgia flare up and suggested use of LB dressing equipment, BSC, and possibly 4ww which her current home health PT is working with her to get one. Pt to go home with increased assist and home health. Goals Self-Feeding Goal Independent Grooming Goal Independent Dressing Goal Independent,Blocker And Polisher,Sock Aid Toileting Goal Independent,Toilet Paper Aid Bathing Goal Minimal Assistance Toilet Transfer Goal Independent Shower Transfer Goal Standby Assistance Patient/Caregiver Education Goal Demonstrate Energy Conservation and Pacing Days to Meet Goals 7 Frequency of Treatment Frequency Of Treatment Once a Day Treatment Plan OT Treatment Plan ADL Training,Functional Mobility,Patient/Family Education,Discharge Planning Discharge Recommendations OT Discharge Recommendations Home,Home with Assistance Other Discharge Recommendations Pt lives at [facility] Equipment Needs Sock aid, wash tub machine operator, BSC, bidet versus toilet paper aid Transportation Needs at Discharge Private Vehicle
[2023-10-12 16:00] VITALS: O2SAT 94
--- NOTE | 2023-10-12 16:04 | PC.NURSE ---
Pt Med early in day for nausea. recieved good relief. Pt slept at intervals thru/out day. Tele continues w/ [facility] AC w/ coverage as per orders. Call light w/in reach. bed alarm on for pt safety. Continue w/ plan of care.
--- NOTE | 2023-10-12 16:20 | PT.IIE ---
Surgical History (Last Reviewed 10/12/23 @ 16:32 by Sascha Blancas MD) Hx of abdominal hysterectomy Hx of appendectomy Hx of breast biopsy Hx of cholecystectomy Hx of total knee replacement Medical History (Last Reviewed 10/12/23 @ 16:32 by Sascha Blancas MD) Depression Diabetes Fibromyalgia History of arthritis History of chronic urinary tract infection History of depression Hx of migraine headaches Hyperlipidemia Hypertension Lichen sclerosus et atrophicus Lower leg edema Microscopic hematuria Peripheral neuropathy Secondhand smoke exposure Urge incontinence Physical Therapy Inpatient Evaluation/Re-Eval M1 PT/OT-IP Prior Functional Status Start: 10/12/23 18:28 Freq: NEEDED Status: Active Protocol: Document 10/12/23 16:20 [facility] (Rec: 10/12/23 18:37 AB [id number]) Medical Review Prior Functional Status Communication ablet o make needs known Mobility and Gait pt was mod I using a FWW for mobility Activities of Daily Living and IADL's per OT note: Pt state her facility assists with showering, medication, light housekeeping and for toileting as needed. Social History Household Members none Living Arrangements Assisted Living Number of Floors (Floors) One Floor Number of Stairs To Enter/Railing? pt lives at [facility] Home Environment Standard Height Toilet,Built- In Shower Seat Home Equipment Front Wheel Walker,Bedside Commode,Hand Held Shower,Grab Bars Near Toilet,Grab Bars In Shower M2 PT-IP Current Condition Start: 10/12/23 18:28 Freq: NEEDED Status: Active Protocol: Document 10/12/23 16:20 [facility] (Rec: 10/12/23 18:37 AB [id number]) Physical Therapy Current Condition Current Condition Evaluation Date 10/12/23 Treatment Diagnosis KENN; difficulty in walking Onset Date 10/11/23 M3 PT-IP Subjective Start: 10/12/23 18:28 Freq: NEEDED Status: Active Protocol: Document 10/12/23 16:20 [facility] (Rec: 10/12/23 18:37 AB [id number]) Subjective Physical Therapy Visit Type Type Initial Evaluation Visit Start Time 16:20 Visit Stop Time 16:35 Number of PLUGGER WORKER Visits 0 Physical Therapy Visit Comments Patient Comments agreeable to do PT M4 PT-IP Mobility and Gait Start: 10/12/23 18:28 Freq: NEEDED Status: Active Protocol: Document 10/12/23 16:20 [facility] (Rec: 10/12/23 18:37 AB [id number]) PT-Bed Mobility Assessment Supine to Sit Supine to Sit Standby Assistance Sit to Supine Sit to Supine Standby Assistance PT-Transfer Assessment Sit to and From Stand Sit to and from Stand Contact Guard Assistance Equipment Transfer Assistive Device Gait Belt,Front Wheeled Walker Orthotic/Prosthetic Devices or Brace: No Transfers Transfer Destination Chair Transfer Technique ambulated Transfer Ability Level of Assist Contact Guard Assistance,1 Person Assistance,Use of Upper Extremities Comments Mobility Comments pt sitting on the chair and just finished OT but agreed to do PT. BP in sittin/62 . completed sit to stand CGA and ambulated in room using FWW ~ 20 ft CGA. no c/o dizziness. pt sat on EOB. completed bed mobility sit<> supine SBA. pt completed step transfer back to chair using FWW CGA. positioned pt on the chair. call light and table placed within reach. Gait Assessment Gait Gait Assistance Required: Contact Guard Assist Distance (Feet) 20 Able to Maintain Weight Bearing Status Yes During Gait Assistive Devices Assistive Device Gait Belt,Front Wheeled Walker Orthotic/Prosthetic Devices or Brace: No Gait Deviations General Gait Pattern Decreased Stride Length, Decreased Feet Clearance Factors Limiting Gait Function Factors Limiting Gait Function Decreased Activity Tolerance, Limited Range of Motion,Poor Balance,Poor Safety Awareness PT-Balance Assessment Sitting Balance and Reactions Static Sitting Balance Ability Normal Dynamic Sitting Balance Ability Good Standing Balance and Reactions Static Standing Balance Ability Fair Dynamic Standing Balance Ability Fair Device Used FWW M5 PT-IP Objective Assessments Start: 10/12/23 18:28 Freq: NEEDED Status: Active Protocol: Document 10/12/23 16:20 [facility] (Rec: 10/12/23 18:37 [id number]) Orientation Orientation/Cognition Level of Alertness Alert Orientation Name,Place,Situation Language Function Ability No Deficits Noted Safety Awareness Decreased Safety Awareness Memory Description No Deficits Noted Gross Range of Motion Lower Extremity ROM Assessment Within Functional Limits Strength Lower Extremity Strength Assessment Right Impaired Hip 3/5 Knee 3+/5 Muscle Tone Muscle Tone WNL Yes M6 PT-IP Treatment Start: 10/12/23 18:28 Freq: NEEDED Status: Active Protocol: Document 10/12/23 16:20 [facility] (Rec: 10/12/23 18:37 [id number]) Physical Therapy Treatment Education Education Provided Safety M7 PT-IP Assessment and Plan Start: 10/12/23 18:28 Freq: NEEDED Status: Active Protocol: Document 10/12/23 16:20 [facility] (Rec: 10/12/23 18:37 AB [id number]) PT Summary Assessment and Plan Potential Rehabilitation Potential Fair Status of Condition at Evaluation Evolving Summary Impairments Pain,ROM,Strength,Balance, Coordination,Sensation,Tone, Cognition,Bed Mobility, Transfers,Gait,Activity Tolerance Assessment Summary pt is a 77 y/o F who presented back to the ED for weakness. pt had a few hospital admissions prior to current admission with last admisstion 10/06/23 to 10/06/01 for PNA . pt admitted back to the hospital for acute kidney injury r/o UTI. pt requiring CGA for transfer and ambulation using fWW but with decrease activity tolerance affecting functional independence. will continue to assess progress. pt plans to go back to [facility] and will need HHPT upon d/c. Goals Bed Mobility Goal Independent Transfer Goal Independent,Front Wheeled Walker Gait Goal Independent,Front Wheel Walker Gait Distance 250 Days to Meet Goals 10 Frequency of Treatment Frequency Of Treatment Once a Day Treatment Plan Physical Therapy Treatment Plan Bed Mobility Training,Transfer Training,Gait Training, Therapeutic Exercise,Balance Retraining,Discharge Planning, Hot or Cold Pack,Neuromuscular Re-ed,Coordination Retraining Precautions Other Precautions falls Recommendations To Nursing Amount of Assist Needed 1 Person Assist Discharge Recommendations PT Discharge Recommendations Home with Assistance,Home Health Transportation Needs at Discharge Private Vehicle
[2023-10-12] MEDS: SODIUM CHLORIDE 0.9% 1,000 ML 50 ML IV (18:06)
[2023-10-12 19:45] VITALS: BP 121/64; PULSE 86; RESP 20; TEMP 35.9; O2SAT 94
[2023-10-12] MEDS: QUETIAPINE 25 MG TABLET PO (20:57)
[2023-10-12] MEDS: PROPRANOLOL 10 MG TABLET 20 MG PO (20:57)
[2023-10-12] MEDS: HYDROCODONE/ACET 5/325 TABLET 2 TAB PO (21:03)
[2023-10-12 22:38] LABS: Add Manual Diff / Slide Review NO; Basophils Absolute Auto 100 /uL (0-100); Basophils Percent Auto 0.7 % (0-2); Eosinophils Absolute Auto 500 /uL (0-450); Eosinophils Percent Auto 4.3 % (2-4); Hematocrit 31.7 % (36-46); Hemoglobin 10.9 g/dL (12.0-16.0); Lymphocytes Absolute Auto 4100 /uL (1100-4500); Lymphocytes Percent Auto 34.9 % (25-40); Mean Corpuscular HGB Conc 34.4 % (30-36); Mean Corpuscular Hemoglobin 31.6 PG (26-34); Mean Corpuscular Volume 91.7 fL (80-100); Monocytes Absolute Auto 900 /uL (0-900); Monocytes Percent Auto 7.2 % (3-14); Neutrophils Absolute Auto 6300 /uL (1500-7000); Neutrophils Percent Auto 52.9 % (50-75); Platelet Count 183 X10^3/uL (150-400); Red Blood Cell Count 3.46 X10^6/uL (4.0-5.2); Red Cell Distribution Width 13.7 % (11.6-14.8); White Blood Cell Count 11.9 X10^3/uL (4.5-11.0)
[2023-10-12] MEDS: cefTRIAXone 1,000 MG in SODIUM CHLORIDE 0.9% 100 ML 200 MG IV (23:14)
[2023-10-12 23:22] LABS: Alanine Aminotransferase 24 IU/L (<35); Albumin 2.9 g/dL (3.5-5.0); Albumin Globulin Ratio 1.1 (1.0-2.8); Alkaline Phosphatase 80 U/L (38-126); Aspartate Aminotransferase 21 IU/L (14-36); Bilirubin Total 0.6 mg/dL (0.2-1.3); Blood Urea Nitrogen 23 mg/dL (7-17); Calcium 8.4 mg/dL (8.4-10.2); Carbon Dioxide 31 mmol/L (22-32); Chloride 101 mmol/L (98-107); Estimated Glomerular Filt Rate 59 mL/min (>60); Globulin 2.6 g/dL (1.7-4.1); Glucose 214 mg/dL (80-110); HEMOLYSIS < 15 (0-50); Potassium 3.7 mmol/L (3.4-5.1); Sodium 132 mmol/L (137-145); Total Protein 5.5 g/dL (6.3-8.2)
[2023-10-13] VITALS (7 sets, daily range): BP systolic 93–120; BP diastolic 46–57; PULSE 68–88; RESP 18–22; TEMP 35.8–36.5; O2SAT 92–96
[2023-10-13 04:24] LABS: Add Manual Diff / Slide Review NO; Basophils Absolute Auto 0 /uL (0-100); Basophils Percent Auto 0.5 % (0-2); Eosinophils Absolute Auto 400 /uL (0-450); Eosinophils Percent Auto 5.1 % (2-4); Hematocrit 31.3 % (36-46); Lymphocytes Absolute Auto 3800 /uL (1100-4500); Lymphocytes Percent Auto 43.9 % (25-40); Mean Corpuscular HGB Conc 35.1 % (30-36); Mean Corpuscular Hemoglobin 31.9 PG (26-34); Monocytes Absolute Auto 600 /uL (0-900); Monocytes Percent Auto 6.4 % (3-14); Neutrophils Absolute Auto 3800 /uL (1500-7000); Neutrophils Percent Auto 44.1 % (50-75); Platelet Count 170 X10^3/uL (150-400); Red Blood Cell Count 3.44 X10^6/uL (4.0-5.2); Red Cell Distribution Width 14.3 % (11.6-14.8); White Blood Cell Count 8.7 X10^3/uL (4.5-11.0)
[2023-10-13 04:38] LABS: BUN Creatinine Ratio 20.7 (6-22); Blood Urea Nitrogen 19 mg/dL (7-17); Calcium 8.2 mg/dL (8.4-10.2); Carbon Dioxide 31 mmol/L (22-32); Chloride 103 mmol/L (98-107); Estimated Glomerular Filt Rate > 60 mL/min (>60); Glucose 210 mg/dL (80-110); HEMOLYSIS < 15 (0-50); Potassium 3.3 mmol/L (3.4-5.1); Sodium 135 mmol/L (137-145)
[2023-10-13] MEDS: POTASSIUM CHLORIDE 10 MEQ TAB PO (05:00)
[2023-10-13] MEDS: INSULIN LISPRO 100 UNIT/ML 3ML VIAL SUBCUT ×4 (07:58→21:59)
[2023-10-13] MEDS: DULOXETINE 20 MG CAPSULE PO (08:03)
[2023-10-13] MEDS: FLUoxetine 20 MG CAPSULE 40 MG PO (08:03)
[2023-10-13] MEDS: HEPARIN 5,000 UNIT/ML VIAL 5000 UNIT SUBCUT (08:04)
[2023-10-13] MEDS: NYSTATIN CREAM 30 GM 1 APPLIC TOP ×2 (08:51→22:00)
[2023-10-13] MEDS: POTASSIUM CHLORIDE 20 MEQ TAB 40 MEQ PO ×3 (09:00→17:13)
[2023-10-13] MEDS: ATORVASTATIN 20 MG TABLET 80 MG PO (09:00)
--- NOTE | 2023-10-13 12:06 | CM.DPNOTE ---
Addendum entered by RENZO Moreno 10/13/23 12:11: [facility] fax [phone] for dc sum and med list at [place]. Original Note: DCP Note PREPARED FOODS SERVICE TEAM MEMBER reviewed EMR. Per hospitalist in rounds, anticipate return to [facility] either today vs Sunday (More likely Sunday). Per RN, pt less emotional and feeling less nauseated today. Provider agreeable to resumption of HH. PREPARED FOODS SERVICE TEAM MEMBER placed HH resumption order for RN/PT/CASTING MACHINE SET UP OPERATOR. PREPARED FOODS SERVICE TEAM MEMBER emailed to Francisca at [facility]. Francisca reports likely only needed resumption order to continue care. Plan: anticipate returned to [facility] within next day or so. Transport via Medicaid transport needed (confirmed has transport benefits from last admission). Sig HH to follow for RN/PT/CASTING MACHINE SET UP OPERATOR. CM team will continue to follow closely. RENZO Moreno
[2023-10-13] MEDS: METOCLOPRAMIDE HCL 5 MG TABLET PO ×3 (12:11→22:00)
[2023-10-13] MEDS: FLUCONAZOLE 100 MG TABLET 150 MG PO (12:12)
[2023-10-13] MEDS: INSULIN GLARGINE 100 UNIT/ML 3ML PEN 34 UNIT SUBCUT (13:07)
--- NOTE | 2023-10-13 14:34 | PT.IPTN ---
Physical Therapy Treatment Note M2 PT-IP Current Condition Start: 10/12/23 18:28 Freq: NEEDED Status: Active Protocol: Document 10/12/23 16:20 AB (Rec: 10/12/23 18:37 AB [id number]) Physical Therapy Current Condition Current Condition Evaluation Date 10/12/23 Treatment Diagnosis KENN; difficulty in walking Onset Date 10/11/23 M3 PT-IP Subjective Start: 10/12/23 18:28 Freq: NEEDED Status: Active Protocol: Document 10/13/23 15:07 TS (Rec: 10/13/23 15:23 TS [id number]) Subjective Physical Therapy Visit Type Type Treatment Note Visit Start Time 14:34 Visit Stop Time 15:04 Number of SUPERVISOR SUNGLASSES Visits 1 Physical Therapy Visit Comments Patient Comments pt found resting in bed, is agreeable to PT, expresses some fear of falling. M4 PT-IP Mobility and Gait Start: 10/12/23 18:28 Freq: NEEDED Status: Active Protocol: Document 10/13/23 15:07 TS (Rec: 10/13/23 15:23 TS [id number]) PT-Bed Mobility Assessment Supine to Sit Supine to Sit Standby Assistance PT-Transfer Assessment Sit to and From Stand Sit to and from Stand Standby Assistance Equipment Transfer Assistive Device Gait Belt,Front Wheeled Walker Orthotic/Prosthetic Devices or Brace: No Comments Mobility Comments Supine to sit SBA with HOB elevated and use of bedrails. STS from bed with FWW SBA, pt has good standing balance. She ambulated in hallway ~50'SBA with w/c trialing, pt feeling fatigued and SOB, requested to sit in chair. Pt resting in chair, cued for PLB, agreed to walk back to room. She ambulatd ~50' back to room SBA with FWW, pt sat back in chair, had some SOB, Spo2 97% on RA, HR114. Pt was left resting in chair, RN notified. Gait Assessment Gait Gait Assistance Required: Standby Assistance Distance (Feet) 100 Able to Maintain Weight Bearing Status Yes During Gait Assistive Devices Assistive Device Gait Belt,Front Wheeled Walker Orthotic/Prosthetic Devices or Brace: No Gait Deviations General Gait Pattern Decreased Stride Length, Decreased Feet Clearance,Wide Based Gait Factors Limiting Gait Function Factors Limiting Gait Function Decreased Activity Tolerance, Limited Range of Motion,Poor Balance,Poor Safety Awareness Comments Gait Comments See mobility comments. PT-Balance Assessment Sitting Balance and Reactions Static Sitting Balance Ability Good Dynamic Sitting Balance Ability Fair Standing Balance and Reactions Static Standing Balance Ability Fair Dynamic Standing Balance Ability Fair Device Used FWW M5 PT-IP Objective Assessments Start: 10/12/23 18:28 Freq: NEEDED Status: Active Protocol: Document 10/12/23 16:20 AB (Rec: 10/12/23 18:37 AB [id number]) Orientation Orientation/Cognition Level of Alertness Alert Orientation Name,Place,Situation Language Function Ability No Deficits Noted Safety Awareness Decreased Safety Awareness Memory Description No Deficits Noted Gross Range of Motion Lower Extremity ROM Assessment Within Functional Limits Strength Lower Extremity Strength Assessment Right Impaired Hip 3/5 Knee 3+/5 Muscle Tone Muscle Tone WNL Yes M6 PT-IP Treatment Start: 10/12/23 18:28 Freq: NEEDED Status: Active Protocol: Document 10/13/23 15:07 TS (Rec: 10/13/23 15:23 TS [id number]) Physical Therapy Treatment Education Education Provided Safety M7 PT-IP Assessment and Plan Start: 10/12/23 18:28 Freq: NEEDED Status: Active Protocol: Document 10/13/23 15:07 TS (Rec: 10/13/23 15:23 TS [id number]) PT Summary Assessment and Plan Potential Rehabilitation Potential Fair Summary Impairments Pain,ROM,Strength,Balance, Coordination,Sensation,Tone, Cognition,Bed Mobility, Transfers,Gait,Activity Tolerance Progress Towards Goals Slow Progress due to Activity Tolerance Assessment Summary Ninfa made some progress with her mobility but remains limited by poor activity tolerance. Pt is SBA for be mobility and STS with FWW. She progressed her gait to 2x~50' SBA with FWW. She does have some SOB with gait and quickly fatigues. PT continues to recommend home with assist and HHPT. Goals Bed Mobility Goal Independent Transfer Goal Independent,Front Wheeled Walker Gait Goal Independent,Front Wheel Walker Gait Distance 250 Days to Meet Goals 10 Frequency of Treatment Frequency Of Treatment Once a Day Treatment Plan Physical Therapy Treatment Plan Bed Mobility Training,Transfer Training,Gait Training, Therapeutic Exercise,Balance Retraining,Discharge Planning, Hot or Cold Pack,Neuromuscular Re-ed,Coordination Retraining Precautions Other Precautions falls Recommendations To Nursing Amount of Assist Needed 1 Person Assist Discharge Recommendations PT Discharge Recommendations Home with Assistance,Home Health Transportation Needs at Discharge Private Vehicle
[2023-10-13] MEDS: HEPARIN 5,000 UNIT/ML VIAL 7500 UNIT SUBCUT ×2 (15:34→22:01)
--- NOTE | 2023-10-13 15:58 | PC.NURSE ---
Pt A/O, sitting in chair for meals, Amb a short distance in hallway w/PT Denies discomfort. Started on reglan w/ relief. CBG 183, 204, & 204 --med w/S/S as per orders Tele SR per ICU staff Call light w/in reach, Pt calls appropriately for needs. Continue w/plan o care
--- NOTE | 2023-10-13 19:03 | P.PN_ITS ---
Subjective Subjective Interval history: 77-year-old female with diabetes mellitus type 2, hypertension, fibromyalgia, depression, recent hospitalization with parainfluenza infection complicated by sepsis and KENN, as well as frequent hospitalizations related to dehydration/nausea, and UTIs who was readmitted with generalized weakness, progressive fatigue, and KENN. The patient had done fairly well overall until June of 2023. At that time she was admitted with intractable nausea and vomiting. Ultimately, it was felt to be secondary to Ozempic. Since then she has had ongoing issues with near chronic nausea. She has had difficulty holding down meals and fluids. She reports frequent episodes of having dry heaves. She feels that she did have a period of overall feeling better, but within a week of moving into [facility], she notes her symptoms have been near constant. She was admitted in June from the through the . She was readmitted July 05 through July 08 with ongoing difficulties with nausea and shortness of breath. She returned and was admitted September 27 with KENN, hypotension which was fluid responsive, and evidence of sepsis. Discharge October 01. She returned September with cough, shortness of breath, and recurrent KENN and discharge on October 06. She reports that she does get abdominal discomfort at times in association with her nausea. Exam Vital Signs (past 8 hours): - 10/13/23 12:00 10/13/23 16:00 10/13/23 17:08 Temperature 97.7 F 96.8 F L Pulse Rate 71 88 Respiratory Rate 20 18 22 Blood Pressure 120/56 L 117/57 L Pulse Oximetry 93 95 Oxygen Flow Rate 0 0 Oxygen Delivery Method Room Air Oxygen Flow Rate 0 Narrative Exam Narrative: GEN: Elderly female, very pleasant, Alert and oriented x 3, NAD HEENT:NC, Face symmetric CHEST: Respiratory excursions symmetric, CTAB CV: RRR, no M/R/G ABD: Soft, obese, NT/ND, BT present in all 4 quadrants, ID habitus limits exam EXTR: warm, well perfused, no C/C/E SKIN: warm and dry, no rash NEURO: Alert and oriented x 3, nonfocal Objective Labs 10/13/23 04:00 10/13/23 04:00 Labs: Laboratory Results - last 24 hr 10/12/23 10/13/23 22:21 04:00 WBC 11.9 H 8.7 RBC 3.46 L 3.44 L Hgb 10.9 L 11.0 L Hct 31.7 L 31.3 L MCV 91.7 91.0 MCH 31.6 31.9 MCHC 34.4 35.1 RDW 13.7 14.3 Plt Count 183 170 Neut % (Auto) 52.9 44.1 L Lymph % (Auto) 34.9 43.9 H [place] % (Auto) 7.2 6.4 Eos % (Auto) 4.3 H 5.1 H Baso % (Auto) 0.7 0.5 Neut # (Auto) 6300 3800 Lymph # (Auto) 4100 3800 [place] # (Auto) 900 600 Eos # (Auto) 500 H 400 Baso # (Auto) 100 0 Sodium 132 L 135 L Potassium 3.7 3.3 L Chloride 101 103 Carbon Dioxide 31 31 BUN 23 H 19 H Creatinine 1.00 0.92 Estimated GFR 59 L > 60 BUN/Creatinine Ratio 23.0 H 20.7 Glucose 214 H 210 H Calcium 8.4 8.2 L Total Bilirubin 0.6 AST 21 ALT 24 Alkaline Phosphatase 80 Total Protein 5.5 L Albumin 2.9 L Globulin 2.6 Albumin/Globulin Ratio 1.1 PFSH Medical History Secondhand smoke exposure Lichen sclerosus et atrophicus Microscopic hematuria Urge incontinence Hx of migraine headaches History of depression History of chronic urinary tract infection History of arthritis Peripheral neuropathy Depression Hyperlipidemia Fibromyalgia Hypertension Lower leg edema Diabetes Surgical History Hx of abdominal hysterectomy Hx of breast biopsy Hx of total knee replacement Hx of cholecystectomy Hx of appendectomy Family History Mother Cancer CVA (cerebral vascular accident) Hyperlipidemia Hypertension Father Hypertension Hyperlipidemia CAD (coronary artery disease) Sister Hyperlipidemia Hypertension Diabetes mellitus Multiple kidney stones Migraines Brother Hyperlipidemia Hypertension Migraines Eczema Social History marital status: number of children: 4 household members: none lives independently: Yes Smoking Status: Never smoker alcohol intake: current caffeine: Yes Type(s) of exercise: walking frequency: 3-4 times per week duration: 15-30 minutes/day Assessment & Plan Assessment & Plan narrative: 1. Generalized weakness/fatigue Patient was evaluated by the pulmonary service earlier this year on an outpatient basis. At that time it was felt she had profound deconditioning. I suspect this continues to be the case and may be a significant component of her ongoing weakness. I also think she has underlying gastroparesis which is making it difficult for her to maintain her hydration after discharge, which then leads to worsening weakness when she returns to her assisted living facility. It appears the gastroparesis was triggered by Ozempic in the fall of 2022. Therapies have evaluated and recommended she return back to [facility] with home health. 2. Leukocytosis Likely to be reactive in nature. She does have a vaginal yeast infection but no urine infection. No other evidence of focal infection. I have ordered fluconazole and discontinued Rocephin at this time. White blood cell count has normalized. 3. Suspected gastroparesis Possibly secondary to Ozempic and contributed to by underlying diabetes. We will discontinue low-dose Seroquel and initiate Reglan q.a.c. and HS. I have discussed eating small frequent meals with her as well as when she eats from when she drinks in order to prevent excessive stretching of the stomach. I suspect this will help with her overall ability to maintain her hydration and reduce risk for recurring UTIs and recurrent admissions for KENN. She is at risk for prolonged QT given her SNRI and SSRI use. However, at this point the benefit of the Reglan outweighs the potential risk. QTC was 0.405 today. We will continue to monitor. 4. Diabetes mellitus type 2 Continue her usual Lantus/glipizide 5. KENN Creatinine is now normal at 0.92. GFR is also normalized. 6. Depression Continue Cymbalta and fluoxetine. 7. Recurrent UTI Would recommend a cranberry supplement as well to help with acidification of the urine. Code status Full Prophylaxis On heparin Disposition Returned to [facility] Assisted living [facility] with home health PT and OT
[2023-10-13] MEDS: PROPRANOLOL 10 MG TABLET 20 MG PO (22:00)
[2023-10-13] MEDS: MELATONIN 3 MG TABLET 6 MG PO (22:00)
[2023-10-13] MEDS: ONDANSETRON 4 MG/2 ML INJ IV (22:25)
[2023-10-14] VITALS (7 sets, daily range): BP systolic 101–138; BP diastolic 50–66; PULSE 65–90; RESP 16–20; TEMP 35.7–36.3; O2SAT 92–98
[2023-10-14 05:32] LABS: BUN Creatinine Ratio 24.7 (6-22); Blood Urea Nitrogen 23 mg/dL (7-17); Calcium 8.9 mg/dL (8.4-10.2); Carbon Dioxide 27 mmol/L (22-32); Chloride 104 mmol/L (98-107); Estimated Glomerular Filt Rate > 60 mL/min (>60); Glucose 132 mg/dL (80-110); HEMOLYSIS < 15 (0-50); Potassium 3.8 mmol/L (3.4-5.1); Sodium 135 mmol/L (137-145)
[2023-10-14] MEDS: HEPARIN 5,000 UNIT/ML VIAL 7500 UNIT SUBCUT ×3 (05:44→21:08)
[2023-10-14] MEDS: ATORVASTATIN 20 MG TABLET 80 MG PO (08:18)
[2023-10-14] MEDS: FLUoxetine 20 MG CAPSULE 40 MG PO (08:18)
[2023-10-14] MEDS: DULOXETINE 20 MG CAPSULE PO (08:19)
[2023-10-14] MEDS: AMLODIPINE 5 MG TABLET 10 MG PO (08:19)
[2023-10-14] MEDS: METOCLOPRAMIDE HCL 5 MG TABLET PO ×3 (08:19→20:54)
[2023-10-14] MEDS: INSULIN LISPRO 100 UNIT/ML 3ML VIAL SUBCUT ×3 (08:20→16:35)
[2023-10-14] MEDS: INSULIN GLARGINE 100 UNIT/ML 3ML PEN 34 UNIT SUBCUT (12:11)
--- NOTE | 2023-10-14 13:29 | PC.NURSE ---
Addendum entered by Gracie Stahl R.N. 10/14/23 15:30: Dr Rodriguez in to see pt. prune juice for c/o constipation Original Note: pt alert and oriented denies pain, blood sugars above range and coverage provided. up to chair and bathroom with standby using walker, call light within reach and call appropriately.
--- NOTE | 2023-10-14 14:17 | PT.IPTN ---
Physical Therapy Treatment Note M2 PT-IP Current Condition Start: 10/12/23 18:28 Freq: NEEDED Status: Active Protocol: Document 10/12/23 16:20 AB (Rec: 10/12/23 18:37 AB [id number]) Physical Therapy Current Condition Current Condition Evaluation Date 10/12/23 Treatment Diagnosis KENN; difficulty in walking Onset Date 10/11/23 M3 PT-IP Subjective Start: 10/12/23 18:28 Freq: NEEDED Status: Active Protocol: Document 10/14/23 13:53 MB (Rec: 10/14/23 14:17 MB [id number]) Subjective Physical Therapy Visit Type Type Treatment Note Visit Start Time 13:53 Visit Stop Time 14:10 Number of MARINE RADIO INSTALLER AND SERVICER Visits 0 Physical Therapy Visit Comments Patient Comments Pt states that she'll get up and move with PT but she doesn 't feel like it. She is having a lot of pain from her fibromyalgia in every joint except her ankles. M4 PT-IP Mobility and Gait Start: 10/12/23 18:28 Freq: NEEDED Status: Active Protocol: Document 10/14/23 13:53 MB (Rec: 10/14/23 14:17 MB [id number]) PT-Transfer Assessment Sit to and From Stand Sit to and from Stand Standby Assistance,1 Person Assistance,Use of Upper Extremities Equipment Transfer Assistive Device Gait Belt,Front Wheeled Walker Orthotic/Prosthetic Devices or Brace: No Transfers Transfer Destination Chair Transfer Technique ambulated Transfer Ability Level of Assist Contact Guard Assistance,1 Person Assistance,Use of Upper Extremities Comments Mobility Comments Pt reports 8.5-9/10 pain in all of her joints from fibromyalgia today and she is agreeable to a little mobility with PT. Gait Assessment Gait Gait Assistance Required: Standby Assistance,1 Person Assist Distance (Feet) 60 Able to Maintain Weight Bearing Status Yes During Gait Assistive Devices Assistive Device Gait Belt,Front Wheeled Walker Orthotic/Prosthetic Devices or Brace: No Gait Deviations General Gait Pattern Antalgic,Decreased Stride Length,Decreased Feet Clearance,Flexed Trunk,Wide Based Gait Factors Limiting Gait Function Factors Limiting Gait Function Decreased Activity Tolerance, Limited Range of Motion,Poor Balance,Poor Safety Awareness Comments Gait Comments Pt c/o increasing pain all over with short gait, 60'x2 with rest break against the wall in hallway. O2 sats are 95% on RA and HR is 106 BPM after mobility. PT-Balance Assessment Sitting Balance and Reactions Static Sitting Balance Ability Good Dynamic Sitting Balance Ability Fair Standing Balance and Reactions Static Standing Balance Ability Fair Dynamic Standing Balance Ability Fair Device Used FWW M5 PT-IP Objective Assessments Start: 10/12/23 18:28 Freq: NEEDED Status: Active Protocol: Document 10/12/23 16:20 AB (Rec: 10/12/23 18:37 AB [id number]) Orientation Orientation/Cognition Level of Alertness Alert Orientation Name,Place,Situation Language Function Ability No Deficits Noted Safety Awareness Decreased Safety Awareness Memory Description No Deficits Noted Gross Range of Motion Lower Extremity ROM Assessment Within Functional Limits Strength Lower Extremity Strength Assessment Right Impaired Hip 3/5 Knee 3+/5 Muscle Tone Muscle Tone WNL Yes M6 PT-IP Treatment Start: 10/12/23 18:28 Freq: NEEDED Status: Active Protocol: Document 10/13/23 15:07 TS (Rec: 10/13/23 15:23 TS [id number]) Physical Therapy Treatment Education Education Provided Safety M7 PT-IP Assessment and Plan Start: 10/12/23 18:28 Freq: NEEDED Status: Active Protocol: Document 10/14/23 13:53 MB (Rec: 10/14/23 14:17 MB [id number]) PT Summary Assessment and Plan Potential Rehabilitation Potential Fair Status of Condition at Evaluation Evolving Summary Impairments Pain,ROM,Strength,Balance, Coordination,Sensation,Bed Mobility,Transfers,Gait, Activity Tolerance Progress Towards Goals Slow Progress due to Pain,Slow Progress due to Activity Tolerance Assessment Summary Pt reports pain all over today from fibromyalgia and she is agreeable to short gait with PT. Goals Bed Mobility Goal Independent Transfer Goal Independent,Front Wheeled Walker Gait Goal Independent,Front Wheel Walker Gait Distance 250 Days to Meet Goals 10 Frequency of Treatment Frequency Of Treatment Once a Day Treatment Plan Physical Therapy Treatment Plan Bed Mobility Training,Transfer Training,Gait Training, Therapeutic Exercise,Balance Retraining,Discharge Planning, Hot or Cold Pack,Neuromuscular Re-ed Precautions Other Precautions falls Recommendations To Nursing Amount of Assist Needed 1 Person Assist Discharge Recommendations PT Discharge Recommendations Home with Assistance,Home Health Transportation Needs at Discharge Private Vehicle
--- NOTE | 2023-10-14 15:19 | CM.DPC ---
DCP Cont: Hospitalist has not yet seen patient. Patient does have Medicaid transportation when ready to discharge. Attempted to call [facility], but unable to get through, has a voice mail that requires employee's first name. Notes do indicate that facility nurse does not need to come and assess. Will fax over DC Summary and updates when ready to discharge. P: DCP to continue to follow. Plan is for patient to return to [facility] when stable, no notes from today, most likely tomorrow. Hanh Pham RN/[employer]
[2023-10-14] MEDS: SENNOSIDES 8.6 MG TABLET PO ×2 (15:36→20:53)
[2023-10-14] MEDS: polyethylene glycoL 3350 17 GM POWD.PACK PO (15:36)
[2023-10-14] MEDS: HYDROCODONE/ACET 5/325 TABLET 2 TAB PO (16:31)
--- NOTE | 2023-10-14 17:46 | PM.PN.1 ---
Subjective Subjective Interval history: Patient feels somewhat better today. Hasn't had a BM in 3 days. Still feels exhausted and winded when getting up. Exam Vital Signs (past 8 hours): - 10/14/23 12:00 10/14/23 16:00 Temperature 97.0 F L 96.9 F L Pulse Rate 84 90 Respiratory Rate 16 Blood Pressure 107/52 L 124/66 Pulse Oximetry 98 92 Oxygen Flow Rate 0 Oxygen Delivery Method Room Air Oxygen Flow Rate 0 Narrative Exam Narrative: GEN: Elderly female, very pleasant, Alert and oriented x 3, NAD HEENT:NC, Face symmetric CHEST: Respiratory excursions symmetric, CTAB CV: RRR, no M/R/G ABD: Soft, obese, NT/ND, BT present in all 4 quadrants, ID habitus limits exam EXTR: warm, well perfused, no C/C/E SKIN: warm and dry, no rash NEURO: Alert and oriented x 3, nonfocal Objective Labs 10/13/23 04:00 10/14/23 04:50 Labs: Laboratory Results - last 24 hr 10/14/23 04:50 Sodium 135 L Potassium 3.8 Chloride 104 Carbon Dioxide 27 BUN 23 H Creatinine 0.93 Estimated GFR > 60 BUN/Creatinine Ratio 24.7 H Glucose 132 H Calcium 8.9 PFSH Medical History Secondhand smoke exposure Lichen sclerosus et atrophicus Microscopic hematuria Urge incontinence Hx of migraine headaches History of depression History of chronic urinary tract infection History of arthritis Peripheral neuropathy Depression Hyperlipidemia Fibromyalgia Hypertension Lower leg edema Diabetes Surgical History Hx of abdominal hysterectomy Hx of breast biopsy Hx of total knee replacement Hx of cholecystectomy Hx of appendectomy Family History Mother Cancer CVA (cerebral vascular accident) Hyperlipidemia Hypertension Father Hypertension Hyperlipidemia CAD (coronary artery disease) Sister Hyperlipidemia Hypertension Diabetes mellitus Multiple kidney stones Migraines Brother Hyperlipidemia Hypertension Migraines Eczema Social History marital status: number of children: 4 household members: none lives independently: Yes Smoking Status: Never smoker alcohol intake: current caffeine: Yes Type(s) of exercise: walking frequency: 3-4 times per week duration: 15-30 minutes/day Assessment & Plan Assessment & Plan narrative: 1. Generalized weakness/fatigue Patient was evaluated by the pulmonary service earlier this year on an outpatient basis. At that time it was felt she had profound deconditioning. I suspect this continues to be the case and may be a significant component of her ongoing weakness. I also think she has underlying gastroparesis which is making it difficult for her to maintain her hydration after discharge, which then leads to worsening weakness when she returns to her assisted living facility. It appears the gastroparesis was triggered by Ozempic in the fall of 2022. Therapies have evaluated and recommended she return back to [facility] with home health. 2. Leukocytosis, now normal Likely to be reactive in nature. She does have a vaginal yeast infection but no urine infection. No other evidence of focal infection. I have ordered fluconazole and discontinued Rocephin at this time. White blood cell count has normalized. 3. Suspected gastroparesis Possibly secondary to Ozempic and contributed to by underlying diabetes. We will discontinue low-dose Seroquel and initiate Reglan q.a.c. and HS. I have discussed eating small frequent meals with her as well as when she eats from when she drinks in order to prevent excessive stretching of the stomach. I suspect this will help with her overall ability to maintain her hydration and reduce risk for recurring UTIs and recurrent admissions for KENN. She is at risk for prolonged QT given her SNRI and SSRI use. However, at this point the benefit of the Reglan outweighs the potential risk. QTC was 0.405. We will continue to monitor. 4. Diabetes mellitus type 2 Continue her usual Lantus/glipizide 5. KENN Creatinine is now normal. GFR is also normalized. 6. Depression Continue Cymbalta and fluoxetine. 7. Constipation No BM in 3 days. Start daily laxatives. Code status Full Prophylaxis On heparin Disposition Returned to [facility] living [facility] with home health PT and OT in 1-2 days.
[2023-10-14] MEDS: ONDANSETRON 4 MG/2 ML INJ IV (18:37)
[2023-10-14] MEDS: MELATONIN 3 MG TABLET 6 MG PO (20:53)
[2023-10-14] MEDS: PROPRANOLOL 10 MG TABLET 20 MG PO (20:53)
[2023-10-14] MEDS: NYSTATIN CREAM 30 GM 1 APPLIC TOP (21:17)
[2023-10-14] MEDS: ACETAMINOPHEN 325 MG TABLET 650 MG PO (21:30)
[2023-10-15 03:00] VITALS: BP 93/42; PULSE 64; RESP 19; TEMP 36.4; O2SAT 94
[2023-10-15] MEDS: HYDROCODONE/ACET 5/325 TABLET 2 TAB PO ×3 (05:32→21:14)
[2023-10-15] MEDS: HEPARIN 5,000 UNIT/ML VIAL 7500 UNIT SUBCUT ×3 (05:33→21:14)
[2023-10-15 08:00] VITALS: BP 153/64; PULSE 67; RESP 16; TEMP 36.4; O2SAT 96
[2023-10-15] MEDS: ACETAMINOPHEN 325 MG TABLET 650 MG PO (08:23)
[2023-10-15] MEDS: AMLODIPINE 5 MG TABLET 10 MG PO (08:23)
[2023-10-15] MEDS: polyethylene glycoL 3350 17 GM POWD.PACK PO (08:23)
[2023-10-15] MEDS: METOCLOPRAMIDE HCL 5 MG TABLET PO ×4 (08:23→21:14)
[2023-10-15] MEDS: SENNOSIDES 8.6 MG TABLET PO ×2 (08:24→21:14)
[2023-10-15] MEDS: FLUoxetine 20 MG CAPSULE 40 MG PO (08:24)
[2023-10-15] MEDS: ATORVASTATIN 20 MG TABLET 80 MG PO (08:24)
[2023-10-15] MEDS: DULOXETINE 20 MG CAPSULE PO (08:24)
[2023-10-15] MEDS: INSULIN LISPRO 100 UNIT/ML 3ML VIAL SUBCUT ×4 (08:25→21:20)
[2023-10-15] MEDS: NYSTATIN CREAM 30 GM 1 APPLIC TOP ×2 (08:28→21:18)
[2023-10-15] MEDS: CLOBETASOL 0.05% CREAM 15 GM 1 APPLIC TOP (08:28)
[2023-10-15] MEDS: POTASSIUM CHLORIDE 10 MEQ TAB PO (08:30)
[2023-10-15] MEDS: ONDANSETRON 4 MG/2 ML INJ IV (10:05)
--- NOTE | 2023-10-15 11:25 | PT-IP ANOTE ---
Pt in supine with cloth over her eyes when approached for therapy, states that she is too nauseated to move, declines therapy.
[2023-10-15 12:00] VITALS: BP 114/54; PULSE 60; RESP 16; TEMP 36.1; O2SAT 95
[2023-10-15] MEDS: INSULIN GLARGINE 100 UNIT/ML 3ML PEN 34 UNIT SUBCUT (12:16)
[2023-10-15] MEDS: BISACODYL 10 MG SUPP PR (14:56)
--- NOTE | 2023-10-15 15:53 | OT.IPNOTE ---
Attempted to see pt for OT services. Pt is sitting up in chair and states that she feels fatigued and has already performed her ADLs. Will hold and continue to follow.
[2023-10-15 16:00] VITALS: BP 114/59; PULSE 75; RESP 16; TEMP 36.2; O2SAT 96
--- NOTE | 2023-10-15 16:15 | PM.PN.1 ---
Subjective Subjective Interval history: She is improving overall. She still has some residual epigastric pain. This is not clearly worse with eating. She has not had a bowel movement in many days. She is open to a suppository today. She denies any dyspnea. Exam Vital Signs (past 8 hours): - 10/15/23 12:00 Temperature 97 F L Pulse Rate 60 Respiratory Rate 16 Blood Pressure 114/54 L Pulse Oximetry 95 Oxygen Flow Rate 0 Oxygen Delivery Method Room Air Oxygen Flow Rate 0 Narrative Exam Narrative: NAD, fluent speech and normal affect. Lungs are clear, normal effort. Heart is regular and without murmur. There is some mild epigastric tenderness without guarding or rebound when her abdomen is palpated. No leg edema. Objective Labs 10/13/23 04:00 10/14/23 04:50 PFS Medical History Secondhand smoke exposure Lichen sclerosus et atrophicus Microscopic hematuria Urge incontinence Hx of migraine headaches History of depression History of chronic urinary tract infection History of arthritis Peripheral neuropathy Depression Hyperlipidemia Fibromyalgia Hypertension Lower leg edema Diabetes Surgical History Hx of abdominal hysterectomy Hx of breast biopsy Hx of total knee replacement Hx of cholecystectomy Hx of appendectomy Family History Mother Cancer CVA (cerebral vascular accident) Hyperlipidemia Hypertension Father Hypertension Hyperlipidemia CAD (coronary artery disease) Sister Hyperlipidemia Hypertension Diabetes mellitus Multiple kidney stones Migraines Brother Hyperlipidemia Hypertension Migraines Eczema Social History marital status: number of children: 4 household members: none lives independently: Yes Smoking Status: Never smoker alcohol intake: current caffeine: Yes Type(s) of exercise: walking frequency: 3-4 times per week duration: 15-30 minutes/day Assessment & Plan Assessment & Plan narrative: 1. Generalized weakness/fatigue, improving. -Patient was evaluated by the pulmonary service earlier this year on an outpatient basis. At that time it was felt she had profound deconditioning. 2. Leukocytosis, present on admission and now normal -Likely to be reactive in nature. No other obvious infection has been found. No fevers. 3. Suspected gastroparesis, improving. Possibly secondary to Ozempic and contributed to by underlying diabetes. 4. Diabetes mellitus type 2, stable. Continue her usual Lantus/glipizide 5. KENN, improving. Creatinine is now normal. GFR is also normalized. 6. Depression, active. Continue Cymbalta and fluoxetine. 7. Constipation, active. No BM in 3 days. Start daily laxatives. Full code DISPO: Aggressive bowel program today. If this is successful she will likely discharge tomorrow, October 15.
--- NOTE | 2023-10-15 16:17 | CM.DPNOTE ---
DCP Note TREATING PLANT SUPERVISOR reviewed EMR. Per provider, could potentially dc today. Per RN, concerned about pt not having BM in multiple days. increasing medication intervention to encourage BM. Pt resting in chair. Pt reports will dc home to [place] but worried about returning. Agreeable to continuing with [facility]. Agreeable to either transport with case briefer Nola or medicaid transport. TREATING PLANT SUPERVISOR and pt had lengthy conversation about her anxieties about dcing and having to return again. Pt reports feeling stronger now than she did last admission. Pt does not want to dc without having a BM. TREATING PLANT SUPERVISOR lvm with pt's case briefer, Nola, no response Plan: Anticipate [facility] transport home tomorrow following BM. [facility] to follow. CM team will continue to follow closely. RENZO Moreno
[2023-10-15] MEDS: MAGNESIUM CITRATE 300 ML SOLUTION 150 ML PO (16:47)
[2023-10-15 20:24] VITALS: BP 169/80; PULSE 75; RESP 20; TEMP 35.9; O2SAT 98
[2023-10-15] MEDS: PROPRANOLOL 10 MG TABLET 20 MG PO (21:14)
[2023-10-15] MEDS: MELATONIN 3 MG TABLET 6 MG PO (21:14)
--- NOTE | 2023-10-15 23:24 | PC.NURSE ---
security shift supervisor: Patient had small, loose BM this evening. Bowel tones are hyperactive. Ambulated in hallway w/ 1 PA & FWW. Senna & prune juice given. Patient denies N/V. Plan of care ongoing.
[2023-10-16 00:57] VITALS: BP 117/65; PULSE 59; RESP 20; TEMP 35.8; O2SAT 93
[2023-10-16] MEDS: HYDROCODONE/ACET 5/325 TABLET 2 TAB PO (04:10)
[2023-10-16 04:30] VITALS: BP 115/66; PULSE 60; RESP 20; TEMP 35.6; O2SAT 94
[2023-10-16] MEDS: HEPARIN 5,000 UNIT/ML VIAL 7500 UNIT SUBCUT ×3 (05:21→21:06)
[2023-10-16] MEDS: ONDANSETRON 4 MG/2 ML INJ IV ×2 (06:37→23:17)
[2023-10-16 08:00] VITALS: BP 99/46; PULSE 67; RESP 18; TEMP 36.1; O2SAT 96
[2023-10-16] MEDS: MAGNESIUM CITRATE 300 ML SOLUTION PO (09:17)
[2023-10-16] MEDS: polyethylene glycoL 3350 17 GM POWD.PACK PO (09:17)
[2023-10-16] MEDS: INSULIN LISPRO 100 UNIT/ML 3ML VIAL SUBCUT ×3 (09:18→20:52)
[2023-10-16] MEDS: CLOBETASOL 0.05% CREAM 15 GM 1 APPLIC TOP (09:19)
[2023-10-16] MEDS: DULOXETINE 20 MG CAPSULE PO (09:19)
[2023-10-16] MEDS: FLUoxetine 20 MG CAPSULE 40 MG PO (09:19)
[2023-10-16] MEDS: METOCLOPRAMIDE HCL 5 MG TABLET PO ×4 (09:19→20:52)
[2023-10-16] MEDS: SENNOSIDES 8.6 MG TABLET PO ×2 (09:20→20:52)
[2023-10-16] MEDS: ATORVASTATIN 20 MG TABLET 80 MG PO (09:20)
[2023-10-16] MEDS: AMLODIPINE 5 MG TABLET 10 MG PO (09:20)
[2023-10-16] MEDS: NYSTATIN CREAM 30 GM 1 APPLIC TOP ×2 (09:20→22:17)
[2023-10-16] MEDS: INSULIN GLARGINE 100 UNIT/ML 3ML PEN 34 UNIT SUBCUT (12:41)
--- NOTE | 2023-10-16 12:47 | PT.IPTN ---
Physical Therapy Treatment Note M2 PT-IP Current Condition Start: 10/12/23 18:28 Freq: NEEDED Status: Active Protocol: Document 10/12/23 16:20 AB (Rec: 10/12/23 18:37 AB [id number]) Physical Therapy Current Condition Current Condition Evaluation Date 10/12/23 Treatment Diagnosis KENN; difficulty in walking Onset Date 10/11/23 M3 PT-IP Subjective Start: 10/12/23 18:28 Freq: NEEDED Status: Active Protocol: Document 10/16/23 12:58 TS (Rec: 10/16/23 13:04 TS [id number]) Subjective Physical Therapy Visit Type Type Treatment Note Visit Start Time 12:47 Visit Stop Time 12:58 Number of LICENSING COORDINATOR Visits 1 Physical Therapy Visit Comments Patient Comments Pt found resting in chair, reports not having a BM for 5 days, is agreeable to PT. M4 PT-IP Mobility and Gait Start: 10/12/23 18:28 Freq: NEEDED Status: Active Protocol: Document 10/16/23 12:58 TS (Rec: 10/16/23 13:04 TS [id number]) PT-Transfer Assessment Sit to and From Stand Sit to and from Stand Standby Assistance,1 Person Assistance,Use of Upper Extremities Equipment Transfer Assistive Device Gait Belt,Front Wheeled Walker Orthotic/Prosthetic Devices or Brace: No Comments Mobility Comments STS from chair SBA with BUE support pushing from arms of the chair and use of FWW. She ambulated ~150'SBA with FWW, required standing rest break due to fatigue. Pt ambulated to room, requested back to chair, pt continues to be fatigued. Pt was left in chair all needs met. Gait Assessment Gait Gait Assistance Required: Standby Assistance,1 Person Assist Distance (Feet) 150 Able to Maintain Weight Bearing Status Yes During Gait Assistive Devices Assistive Device Gait Belt,Front Wheeled Walker Orthotic/Prosthetic Devices or Brace: No Gait Deviations General Gait Pattern Antalgic,Decreased Stride Length,Decreased Feet Clearance,Flexed Trunk,Wide Based Gait Factors Limiting Gait Function Factors Limiting Gait Function Decreased Activity Tolerance, Limited Range of Motion,Poor Balance,Poor Safety Awareness Comments Gait Comments See mobility comments. PT-Balance Assessment Sitting Balance and Reactions Static Sitting Balance Ability Good Dynamic Sitting Balance Ability Fair Standing Balance and Reactions Static Standing Balance Ability Fair Dynamic Standing Balance Ability Fair Device Used FWW M5 PT-IP Objective Assessments Start: 10/12/23 18:28 Freq: NEEDED Status: Active Protocol: Document 10/12/23 16:20 AB (Rec: 10/12/23 18:37 AB [id number]) Orientation Orientation/Cognition Level of Alertness Alert Orientation Name,Place,Situation Language Function Ability No Deficits Noted Safety Awareness Decreased Safety Awareness Memory Description No Deficits Noted Gross Range of Motion Lower Extremity ROM Assessment Within Functional Limits Strength Lower Extremity Strength Assessment Right Impaired Hip 3/5 Knee 3+/5 Muscle Tone Muscle Tone WNL Yes M6 PT-IP Treatment Start: 10/12/23 18:28 Freq: NEEDED Status: Active Protocol: Document 10/16/23 12:58 TS (Rec: 10/16/23 13:04 TS [id number]) Physical Therapy Treatment Education Education Provided Safety M7 PT-IP Assessment and Plan Start: 10/12/23 18:28 Freq: NEEDED Status: Active Protocol: Document 10/16/23 12:58 TS (Rec: 10/16/23 13:04 TS [id number]) PT Summary Assessment and Plan Potential Rehabilitation Potential Fair Summary Impairments Pain,ROM,Strength,Balance, Coordination,Sensation,Bed Mobility,Transfers,Gait, Activity Tolerance Progress Towards Goals Slow Progress due to Pain,Slow Progress due to Activity Tolerance Assessment Summary Ninfa is making some progress with her mobility but continues to be limited by poor activity tolerance and fatigue. She progressed her gait to ~150'SBA with FWW, fatigues about usp through walk, requires standing rest break. PT is recommending home with assist and HHPT. Goals Bed Mobility Goal Independent Transfer Goal Independent,Front Wheeled Walker Gait Goal Independent,Front Wheel Walker Gait Distance 250 Days to Meet Goals 10 Frequency of Treatment Frequency Of Treatment Once a Day Treatment Plan Physical Therapy Treatment Plan Bed Mobility Training,Transfer Training,Gait Training, Therapeutic Exercise,Balance Retraining,Discharge Planning, Hot or Cold Pack,Neuromuscular Re-ed Precautions Other Precautions falls Recommendations To Nursing Amount of Assist Needed Standby Assistance Discharge Recommendations PT Discharge Recommendations Home with Assistance,Home Health Transportation Needs at Discharge Private Vehicle
--- NOTE | 2023-10-16 13:42 | CM.DPNOTE ---
DCP Note LATIN DANCE INSTRUCTOR reviewed EMR. Per hospitalist, stable to dc home after BM. Per RN, pt had small loose/watery BM last night. Has not had true BM in over 5 days. Getting enema this afternoon. LATIN DANCE INSTRUCTOR met with pt in room. Eager to dc home after BM. Agreeable to medicaid transport/[facility] . LATIN DANCE INSTRUCTOR attempted x4 to called [place]- disconnected everytime. Will fax scripts and dc summary (F [phone]) when available. LATIN DANCE INSTRUCTOR called and lvm with immigration case worker Nola Sylvester (Ph. # [phone]) with [facility], no response. LATIN DANCE INSTRUCTOR completed Medicaid transport form in anticipation of dc. LATIN DANCE INSTRUCTOR updated Francisca at [facility] via email. Plan: pt to dc hopefully later today after BM. Will need medicaid transport. CM team willl continue to follow closely. RENZO Moreno
[2023-10-16] MEDS: FLEETS ENEMA 1 EACH PR ×2 (14:48→16:40)
--- NOTE | 2023-10-16 16:07 | OT.IPNOTE ---
Pt reclined in bed on entrance of OT. Pt refused tx stating that she was about to receive an enema and was not feeling up to any more therapy today. OT to follow up tomorrow.
--- NOTE | 2023-10-16 16:21 | DIET.CONS2 ---
Dietary Inpatient Consultation Note Admission Date: 10/11/2023 01:50 77 y F admitted for generalized weakness and progressive fatigue. Nutrition screened for LOS day 5. Met with pt at bedside. Pt reports lower appetite during stay. Noted suspected gastroparesis in chart and briefly reviewed with pt. Encouraged adequate protein as tolerated to prevent muscle mass loss with lower appetite. Pt reports having had DM educ before. Will continue to monitor. Diet: 10/11/23 Breakfast Carbohydrate Consistent Diet Diet Modifications: Pls allow 6 sml meals/day, yogurt okay Carbohydrate level: Medium (3 CHO) Bedtime snack: Yes Reflex DM orders: No Heart Healthy Diet Diet Modifications: Nutrition Percent Meal Consumed 100% 10/16/23 08:00 Percent Meal Consumed 100% 10/15/23 18:00 Percent Meal Consumed 100% 10/14/23 18:00 Electronically Signed by: Susana Cole 10/16/23 16:21 Clinical Dietitian [address] [address]
[2023-10-16 18:00] VITALS: BP 130/62; PULSE 87; RESP 18; TEMP 36.3; O2SAT 96
--- NOTE | 2023-10-16 18:42 | PM.PN.1 ---
Subjective Subjective Interval history: She still has abdominal fullness and some pain. She did have made citrate once yesterday and once today as well as 2 enemas with no effect. She has had no BM in 5 days. Her nausea has resolved. Exam Vital Signs (past 8 hours): Oxygen Delivery Method Room Air Oxygen Flow Rate 0 Narrative Exam Narrative: NAD, alert and oriented. Fluent speech. Lungs are clear, normal rate and effort. Heart is regular, no murmur gallop or rub. Abdomen is soft, non distended. She does have bowel tones. Extremities are free of edema. Objective Labs 10/13/23 04:00 10/14/23 04:50 PFS Medical History Secondhand smoke exposure Lichen sclerosus et atrophicus Microscopic hematuria Urge incontinence Hx of migraine headaches History of depression History of chronic urinary tract infection History of arthritis Peripheral neuropathy Depression Hyperlipidemia Fibromyalgia Hypertension Lower leg edema Diabetes Surgical History Hx of abdominal hysterectomy Hx of breast biopsy Hx of total knee replacement Hx of cholecystectomy Hx of appendectomy Family History Mother Cancer CVA (cerebral vascular accident) Hyperlipidemia Hypertension Father Hypertension Hyperlipidemia CAD (coronary artery disease) Sister Hyperlipidemia Hypertension Diabetes mellitus Multiple kidney stones Migraines Brother Hyperlipidemia Hypertension Migraines Eczema Social History marital status: number of children: 4 household members: none lives independently: Yes Smoking Status: Never smoker alcohol intake: current caffeine: Yes Type(s) of exercise: walking frequency: 3-4 times per week duration: 15-30 minutes/day Assessment & Plan Assessment & Plan narrative: 1. Generalized weakness/fatigue, resolved. 2. Leukocytosis, present on admission and now normal -Likely to be reactive in nature. No other obvious infection has been found. No fevers. 3. Suspected gastroparesis, improving. Possibly secondary to Ozempic and contributed to by underlying diabetes. 4. Diabetes mellitus type 2, stable. Continue her usual Lantus/glipizide 5. KENN, improving. Creatinine is now normal. GFR is also normalized. 6. Depression, active. Continue Cymbalta and fluoxetine. 7. Constipation, active. No BM in 3 days. Start daily laxatives. -refractory to a very aggressive bowel program, we will try GoLYTELY tonight. If she has a BM she will likely be able to discharge tomorrow. Full code
[2023-10-16] MEDS: PEG3350/SOD SULF,BICARB,CL/KCL 4,000 ML SOLUTION 2000 ML PO (18:57)
[2023-10-16] MEDS: MELATONIN 3 MG TABLET 6 MG PO (20:52)
[2023-10-16] MEDS: PROPRANOLOL 10 MG TABLET 20 MG PO (20:52)
[2023-10-16] MEDS: ACETAMINOPHEN 325 MG TABLET 650 MG PO (22:37)
[2023-10-17 00:32] VITALS: BP 108/54; PULSE 68; RESP 20; TEMP 35.9; O2SAT 92
[2023-10-17] MEDS: HEPARIN 5,000 UNIT/ML VIAL 7500 UNIT SUBCUT (05:30)
[2023-10-17 06:55] VITALS: BP 103/47; PULSE 74; RESP 20; TEMP 36.2; O2SAT 91
[2023-10-17] MEDS: METOCLOPRAMIDE HCL 5 MG TABLET PO (08:44)
[2023-10-17] MEDS: DULOXETINE 20 MG CAPSULE PO (08:44)
[2023-10-17] MEDS: ATORVASTATIN 20 MG TABLET 80 MG PO (08:45)
[2023-10-17] MEDS: FLUoxetine 20 MG CAPSULE 40 MG PO (08:45)
[2023-10-17] MEDS: AMLODIPINE 5 MG TABLET 10 MG PO (08:46)
[2023-10-17 09:24] VITALS: BP 117/68; PULSE 80; RESP 16; TEMP 36.4; O2SAT 95
--- NOTE | 2023-10-17 09:37 | PM.DS.1 ---
History of Present Illness History of Present Illness Chief complaint: Increased SOB, Lethargic Narrative: From night doctor: 77 years old female with a past medical history of hypertension, diabetes, fibromyalgia, depression, recent hospitalization for respiratory failure with parainfluenza infection complicated by sepsis with acute kidney injury and discharged to the rehab now brought back from the rehab to the hospital for progressive weakness with shortness of breath and generalized fatigue. Initial only patient did improve and at the time of discharge her numbers had improved significantly. White count did drop to 14.5 and O2 saturation was fairly stable. Patient had received IV Rocephin and azithromycin and eventually discharged on oral cephalosporin with the prednisone. Now returns back to the emergency room for progressive fatigue with generalized weakness and not able to participate in activities. On evaluation patient was saturating in the high 90s on room air further workup showed a white count of 21.2 with a BUN of 53 and a creatinine of 1.51. Urine analysis shows trace leukocyte esterase and negative for nitrites. The viral panel is negative. Chest x-ray shows no acute cardiopulmonary process. CT abdomen and pelvis shows small constipation but otherwise no acute process. Given the persistent weakness, patient was admitted for further evaluation. Additional history: She was discharged home on October 06 after an admission for the parainfluenza virus on oral antibiotics, specifically cefdinir as well as oral prednisone. The patient did well for about 2-1/2-3 days and then developed profound fatigue as well as nausea. No fevers or chills. No recurrent rhinorrhea, cough or sore throat. No dyspnea. She also denies diarrhea although she was constipated for about 3 days and did finally have a relatively large bowel movement. No new skin rash other than a groin Sue which is currently being treated. Blood cultures were drawn and are pending. She was too nauseated to eat breakfast this morning. Discharge Providers Provider Date of admission: 10/11/23 01:50 Discharge Date: 10/17/23 Primary care physician: Monie Santamaria RN Consults: 10/12/23 10:57 Consult to Occupational Therapy Evaluate & Treat Comment: Physician Instructions: Evaluate and treat Consult to Physical Therapy Evaluate & Treat Comment: Physician Instructions: Evaluate and Treat 10/13/23 12:00 Consult to Home Health Routine Comment: Reason For Exam: resume RN/PT/MOLD RELEASE WORKER Discharge provider: Sascha Blancas MD Summary Hospital Course Discharge Diagnosis: 1. Generalized weakness/fatigue, resolved. 2. Leukocytosis, present on admission and now normal -Likely to be reactive in nature. No other obvious infection has been found. No fevers. 3. Suspected gastroparesis, improving. Possibly secondary to Ozempic and contributed to by underlying diabetes. 4. Diabetes mellitus type 2, stable. Continue her usual Lantus/glipizide 5. KENN, improving. Creatinine is now normal. GFR is also normalized. 6. Depression, active. Continue Cymbalta and fluoxetine. 7. Constipation, active. Resolved with [facility] Hospital Course: She was readmitted after an initial admission for parainfluenza virus, dyspnea, anorexia and profound weakness. She went home and did reasonably well for about a day and then had recurrent weakness and nausea. She was admitted for severe weakness and volume depletion with KENN. She was treated symptomatically with antiemetics and IV fluids and ultimately improved to a degree. She would persistent epigastric pain and was treated for constipation with a variety of agents which did not suppositories and enemas which also had minimal effect. She can well and was treated with a L of GoLYTELY the evening before discharge and had a very large amount of stool out and felt much better in the morning. She is stable for discharge on the and we will hold her diuretics and a close attention to her bowel program and hydration. Ultimately, it appeared that all of her symptoms related to a very prolonged post infection phase secondary to her severe parainfluenza illness. Status at Discharge Cognitive/behavioral status at discharge: oriented Functional status at discharge: independent ambulation Overall status at discharge: patient is back to baseline Time Spent with Patient Time spent: Greater than 30 minutes Exam Vital Signs (past 8 hours): - 10/17/23 06:55 10/17/23 09:24 Temperature 97.1 F L 97.5 F L Pulse Rate 74 80 Respiratory Rate 20 16 Blood Pressure 103/47 L 117/68 Pulse Oximetry 91 95 Oxygen Flow Rate 0 Oxygen Delivery Method Room Air Oxygen Flow Rate 0 Narrative Exam Narrative: NAD, alert and oriented. Fluent speech. Lungs are clear, normal rate and effort. Heart is regular, no murmur gallop or rub. Abdomen is soft, non distended. Extremities are free of edema. Objective Imaging CT scan - abdomen: Radiologist's impression: 1. Small hiatal hernia and questionable gastric wall thickening, low-grade gastritis cannot be excluded. 2. [id number] constipation. No small bowel or colon wall thickening. No abscess collection. No free fluid or free air. Labs 10/13/23 04:00 10/14/23 04:50 PFS Medical History Secondhand smoke exposure Lichen sclerosus et atrophicus Microscopic hematuria Urge incontinence Hx of migraine headaches History of depression History of chronic urinary tract infection History of arthritis Peripheral neuropathy Depression Hyperlipidemia Fibromyalgia Hypertension Lower leg edema Diabetes Surgical History Hx of abdominal hysterectomy Hx of breast biopsy Hx of total knee replacement Hx of cholecystectomy Hx of appendectomy Family History Mother Cancer CVA (cerebral vascular accident) Hyperlipidemia Hypertension Father Hypertension Hyperlipidemia CAD (coronary artery disease) Sister Hyperlipidemia Hypertension Diabetes mellitus Multiple kidney stones Migraines Brother Hyperlipidemia Hypertension Migraines Eczema Social History marital status: number of children: 4 household members: none lives independently: Yes Smoking Status: Never smoker alcohol intake: current caffeine: Yes Type(s) of exercise: walking frequency: 3-4 times per week duration: 15-30 minutes/day Discharge Assessment & Plan Assessment and Plan Assessment: 1. Generalized weakness/fatigue, resolved. 2. Leukocytosis, present on admission and improved. 3. Possible post infection gastroparesis, improving. 4. Diabetes mellitus type 2, stable. Continue her usual Lantus/glipizide 5. KENN, resolved. Creatinine is now normal. GFR is also normalized. 6. Depression, active. Continue Cymbalta and fluoxetine. 7. Constipation, improved. . Resolved with [facility] Plan of Treatment: Discharge home with most of her medications other than stopping Lasix and chlorthalidone. She will hydrate and take MiraLax daily. Close follow up with PCP. Discharge Plan Discharge Plan Patient Disposition: Home Provider Discharge Comment: Stable for discharge. I would recommend holding the 2 diuretics which were Lasix and chlorthalidone until follow up with her primary care doctor. These can increased constipation. Monitor blood pressure. I would also start [id number] MiraLax 17 g in water once a day to promote ongoing bowel movements. Discharge orders & Medications Prescriptions: Continued duloxetine 20 mg capsule,delayed release(DR/EC) 20 mg PO DAILY quetiapine 25 mg tablet 25 mg PO BEDTIME propranolol 20 mg tablet 20 mg PO BEDTIME rosuvastatin 40 mg tablet 40 mg PO DAILY Patient Comments: All the medicines I'm taking in this hospital is in my record. insulin glargine [Lantus Solostar U-100 Insulin] 100 unit/mL (3 mL) insulin pen 34 unit SUBCUT 2100 potassium chloride 10 mEq tablet extended release 10 meq PO Q OTHER DAY amlodipine 10 mg tablet 10 mg PO DAILY fluoxetine 20 mg tablet 40 mg PO DAILY diclofenac sodium 75 mg tablet,delayed release (DR/EC) 75 mg PO BID clobetasol 0.05 % ointment 1 applic topical DAILY glipizide 5 mg tablet 5 mg PO BID Discontinued chlorthalidone 25 mg tablet 12.5 mg PO QAM furosemide 20 mg tablet 20 mg PO QAM benzonatate 100 mg Capsule 100 mg PO TID PRN (Reason: Cough) Qty: 30 0RF cefdinir 300 mg capsule 300 mg PO BID 7 Days Qty: 14 0RF Medication counseling provided by Pharmacist: No Follow up/Referrals: Monie Santamaria, RN [Primary Care Provider] - Discharge Health Status Multidrug resistant organism: No MDRO Diet/Activity/Treatments Diet: Diet as Tolerated Skin/Wound/Dressing Care Report to your healthcare provider any signs of infection, such as:: increased pain Visit Report/Discharge Packet Stand Alone Forms: Patient Portal/API, Stroke Signs & Symptoms Discharge Data Primary Care Provider: Monie Santamaria Attending Provider: Sanket Gastelum Admit Date/Time: 10/11/23 01:50
[2023-10-17] MEDS: POTASSIUM CHLORIDE 10 MEQ TAB PO (09:45)
--- NOTE | 2023-10-17 10:23 | CM.DPNOTE ---
Addendum entered by RENZO Moreno 10/17/23 11:25: SALES DATA ANALYST spoke with dispatch at [facility] ([phone]). Confirm their haul driver will pick pt up at main entrance. SALES DATA ANALYST updated RN. RN taking pt to main entrance. -SL Addendum entered by Sarah Mendoza RENZO 10/17/23 11:10: [facility] reports transport will be here between 11:15am and 11:30am. unclear if ED entrance vs [address] entrance. SALES DATA ANALYST called [facility] to get phone number to update cab company, response pending. SALES DATA ANALYST updated pt. She's eager and ready to dc home. SALES DATA ANALYST updated RN/[employer] SALES REPRESENTATIVE. They will assist pt in getting down to main st entrance due to the ED entrance being under construction. Original Note: DCP Note SALES DATA ANALYST reviewed EMR. Per hospitalist, BM overnight. Pt cleared to dc home. PRIYA Alvarado kindly agreed to fax dc sum to [facility] and [facility]. SALES DATA ANALYST attempted to call [place] x3, call disconnected each time. SALES DATA ANALYST met with pt in room. Eager to dc home. Reports needing medicaid transport, manager case Nola unable to drive her. PRIYA Alvarado faxed [facility] transport form. Transport pending. [facility] calling transports now. Plan: pt to dc home today to [facility] via [facility] transport, time pending. [facility] to follow. CM team will continue to follow closely. RENZO Moreno
[2023-10-17] MEDS: CLOBETASOL 0.05% CREAM 15 GM 1 APPLIC TOP (10:38)
[2023-10-17] MEDS: NYSTATIN CREAM 30 GM 1 APPLIC TOP (10:38)
--- NOTE | 2023-10-17 11:22 | PC.NURSE ---
Day shift: Discharge instructions gone over with patient. All questions answered, patient stated understanding. PIV removed prior to discharge. All belongings with patient. This RN escorted patient via wheelchair to main entrance where taxi picked up to take her home to assisted living facility.
== END 2023-10-17 11:31 | disposition home or self-care (01) ==
LOC: ED 20:02 → AC 10-11 01:50
PROVIDERS: Family Medicine; Hospitalist; Admitting Provider Internal Medicine; Emergency Provider Emergency Medicine; PCP Nurse Practitioner Family; Referring Provider Emergency Medicine; Visit Provider Internal Medicine
DX: R06.02 Shortness of breath (principal); E86.9 Volume depletion, unspecified; K59.00 Constipation, unspecified; F32.A Depression, unspecified; N17.9 Acute kidney failure, unspecified; E11.9 Type 2 diabetes mellitus without complications; Z11.52 Encounter for screening for COVID-19; Z79.4 Long term (current) use of insulin; Z79.84 Long term (current) use of oral hypoglycemic drugs
CPT/HCPCS: 36415; 51701; 71045; 74177; 80048; 80053; 81001; 82550; 82962; 83690; 83735; 83880; 84145; 84484; 85025; 85610; 87040; 87077; 87086; 87633; 96361; 96365; 96366; 96372; 96375; 96376; 97116; 97162; 97165; 97530; 97535; 99284; G0378; J0696; J1644; J1815; J2405; J2765; Q9967

== ENCOUNTER 2023-12-04 19:29 | Emergency (ER) | payer OTHER, SELFPAY ==
[2023-10-11 02:16] VITALS: BMI 41.8
[2023-12-04 19:32] VITALS: BP 138/80; PULSE 73; RESP 18; TEMP 36.8; O2SAT 97; BMI 40.7
--- NOTE | 2023-12-04 19:38 | DI.RAD.S_ITS ---
PROCEDURE: XR KNEE RT 3V INDICATIONS: pain/can't bear weight TECHNIQUE: 3 views of the knee were acquired. COMPARISON: [facility], CR, XR KNEE LT 3V, 12/21/2022, 11:28. FINDINGS: Bones: No fractures or dislocations. No suspicious bony lesions. Knee arthroplasty. Hardware is intact without hardware fracture or periprosthetic lucency to suggest loosening. Alignment is stable. Soft tissues: Mild joint effusion. No suspicious soft tissue calcifications. IMPRESSION: Knee arthroplasty. Mild effusion. No visualized acute fracture or dislocation. However, if clinical concern and/or pain persist, short interval imaging followup in 7-10 days is recommended, as occult injury cannot be definitively excluded. Dictated by: Carmina Solis M.D. on 12/04/2023 at 22:22 Approved by: Carmina Solis M.D. on 12/04/2023 at 22:23
--- NOTE | 2023-12-04 21:36 | PC.NURSE ---
Hx of total knee replacement 2012
[2023-12-04 22:32] VITALS: PULSE 77; O2SAT 92
--- NOTE | 2023-12-04 22:48 | ED_ITS ---
HPI - Extremity Problem General Chief complaint: Extremity Problem,Nontraumatic Stated complaint: R Knee Pain Time Seen by Provider: 12/04/23 21:23 Source: patient Mode of arrival: Wheelchair History of Present Illness HPI Narrative: 78-year-old female who is here for evaluation of right knee pain. No specific trauma. She has had a knee replacement in the past. She states she feels like her knee is tight to bend. She denies fevers. Has had injections in the knee in the past with the last 1 being several months ago. No hip or ankle pain. Related Data Home Medications Medication Instructions Recorded Confirmed duloxetine 20 mg capsule,delayed 20 mg PO DAILY 06/15/23 10/11/23 release propranolol 20 mg tablet 20 mg PO BEDTIME 06/15/23 10/11/23 quetiapine 25 mg tablet 25 mg PO BEDTIME 06/15/23 10/11/23 rosuvastatin 40 mg tablet 40 mg PO DAILY 06/15/23 10/11/23 insulin glargine 100 unit/mL (3 34 unit SUBCUT 2100 07/05/23 10/11/23 mL) subcutaneous pen (Lantus Solostar U-100 Insulin) potassium chloride 10 mEq 10 meq PO Q OTHER DAY 07/05/23 10/11/23 tablet,extended release amlodipine 10 mg tablet 10 mg PO DAILY 09/27/23 10/11/23 clobetasol 0.05 % topical ointment 1 applic topical DAILY 09/27/23 10/11/23 diclofenac sodium 75 mg 75 mg PO BID 09/27/23 10/11/23 tablet,delayed release fluoxetine 20 mg tablet 40 mg PO DAILY 09/27/23 10/11/23 glipizide 5 mg tablet 5 mg PO BID 09/27/23 10/11/23 Previous Rx's Medication Instructions Recorded meloxicam 7.5 mg tablet See Rx Instructions .Route 12/04/23 .COMPLEX #30 tabs Allergies Allergy/AdvReac Type Severity Reaction Status Date / Time morphine AdvReac Nightmare Verified 10/10/23 19:34 Review of Systems Musculoskeletal Musculoskeletal: Reports system reviewed and no additional complaints, except as documented Integumentary/Breasts Skin/Breast: Reports system reviewed and no additional complaints, except as documented Neurologic Neurologic: Reports system reviewed and no additional complaints, except as documented Patient History Medical History Secondhand smoke exposure Lichen sclerosus et atrophicus Microscopic hematuria Urge incontinence Hx of migraine headaches History of depression History of chronic urinary tract infection History of arthritis Peripheral neuropathy Depression Hyperlipidemia Fibromyalgia Hypertension Lower leg edema Diabetes Surgical History Hx of abdominal hysterectomy Hx of breast biopsy Hx of total knee replacement Hx of cholecystectomy Hx of appendectomy Family History Mother Cancer CVA (cerebral vascular accident) Hyperlipidemia Hypertension Father Hypertension Hyperlipidemia CAD (coronary artery disease) Sister Hyperlipidemia Hypertension Diabetes mellitus Multiple kidney stones Migraines Brother Hyperlipidemia Hypertension Migraines Eczema Social History marital status: number of children: 4 household members: none lives independently: Yes Smoking Status: Never smoker alcohol intake: current caffeine: Yes Type(s) of exercise: walking frequency: 3-4 times per week duration: 15-30 minutes/day Smoking Status: Never smoker alcohol intake frequency: holidays/special occasions only Substance Use Type: does not use Exam Initial Vital Signs Initial Vital Signs: Vital Signs Temperature 98.2 F 12/04/23 19:32 Pulse Rate 73 12/04/23 19:32 Respiratory Rate 18 12/04/23 19:32 Blood Pressure 138/80 12/04/23 19:32 Pulse Oximetry 97 12/04/23 19:32 Oxygen Delivery Method Room Air 12/04/23 19:32 Skin General: no rashes or lesions noted Neuro General: patient alert and patient awake Extrem Other: Discomfort with palpation throughout the right knee. Small effusion felt. Patient is able to somewhat flex and extend but with quite a bit of discomfort Course Orders Ordered: ED Orders 12/04/23 19:38 XR knee RT 3V Stat Discontinued Medications Meloxicam (Meloxicam 7.5 Mg Tablet) 15 mg PO NOW ONE Stop: 12/04/23 22:49 Last Admin: 12/04/23 22:58 Dose: 15 mg Documented By: TATO Vital Signs Vital signs: Vital Signs - 8 hr 12/04/23 19:32 12/04/23 22:32 12/04/23 22:59 Temperature 98.2 F Pulse Rate 73 77 78 Respiratory Rate 18 Blood Pressure 138/80 Pulse Oximetry 97 92 94 Oxygen Delivery Method Room Air 12/04/23 23:00 Temperature Pulse Rate Respiratory Rate Blood Pressure 124/57 L Pulse Oximetry Oxygen Delivery Method MDM - Extremity (Nontraumatic) Imaging Data Extremity x-ray #1: Radiologist's Impression: PROCEDURE: XR KNEE RT 3V INDICATIONS: pain/can't bear weight TECHNIQUE: 3 views of the knee were acquired. COMPARISON: [facility], CR, XR KNEE LT 3V, 12/21/2022, 11:28. FINDINGS: Bones: No fractures or dislocations. No suspicious bony lesions. Knee arthroplasty. Hardware is intact without hardware fracture or periprosthetic lucency to suggest loosening. Alignment is stable. Soft tissues: Mild joint effusion. No suspicious soft tissue calcifications. IMPRESSION: Knee arthroplasty. Mild effusion. No visualized acute fracture or dislocation. However, if clinical concern and/or pain persist, short interval imaging followup in 7-10 days is recommended, as occult injury cannot be definitively excluded. [facility] Narrative Medical decision making narrative: No fractures or dislocations noted. Low suspicion for septic joint. There are no indication of any cellulitis. There was no indication for antibiotics. Provided reassurance to the patient. Discussed the use of Tylenol and ibuprofen. Discharged home with a prescription for Mobic as ibuprofen has upset her stomach in the past. Elastic bandage was placed for comfort. She has a walker at home. Advised that she contact her orthopedic provider for follow-up. She was given return precautions. Discharge Plan Departure Patient Disposition: Home Clinical Impression: Effusion, right knee Instructions: How To Perform RICE (Rest, Ice, Compress, Elevate), How to Apply an Elastic Wrap on Knee Activity Restrictions/Additional Instructions: Continue to take all of your medications as directed. He was the meloxicam/Mobic as directed. Contact your primary doctor for a follow-up. Return to the emergency department for new or worsening symptoms. Prescriptions: New meloxicam 7.5 mg tablet See Rx Instructions .ROUTE .COMPLEX Qty: 30 2RF Rx Instructions: 1-2 tabs Po daily as needed for knee pain No Action duloxetine 20 mg capsule,delayed release(DR/EC) 20 mg PO DAILY quetiapine 25 mg tablet 25 mg PO BEDTIME propranolol 20 mg tablet 20 mg PO BEDTIME rosuvastatin 40 mg tablet 40 mg PO DAILY Patient Comments: All the medicines I'm taking in this hospital is in my record. insulin glargine [Lantus Solostar U-100 Insulin] 100 unit/mL (3 mL) insulin pen 34 unit SUBCUT 2100 potassium chloride 10 mEq tablet extended release 10 meq PO Q OTHER DAY amlodipine 10 mg tablet 10 mg PO DAILY fluoxetine 20 mg tablet 40 mg PO DAILY diclofenac sodium 75 mg tablet,delayed release (DR/EC) 75 mg PO BID clobetasol 0.05 % ointment 1 applic topical DAILY glipizide 5 mg tablet 5 mg PO BID Referrals: Monie Santamaria, CORRINA [Primary Care Provider] - Stand Alone Forms: Patient Portal/API
[2023-12-04] MEDS: MELOXICAM 7.5 MG TABLET 15 MG PO (22:58)
[2023-12-04 22:59] VITALS: PULSE 78; O2SAT 94
[2023-12-04 23:00] VITALS: BP 124/57
--- NOTE | 2023-12-04 23:09 | PC.NURSE ---
I made myself readily available to the student nurse, I agree with her assessment
== END 2023-12-04 23:16 | disposition home or self-care (01) ==
PROVIDERS: Emergency Provider Emergency Medicine; PCP Nurse Practitioner Family
DX: M25.461 Effusion, right knee (principal); Z79.899 Other long term (current) drug therapy; Z96.659 Presence of unspecified artificial knee joint
CPT/HCPCS: 73562; 99283

== ENCOUNTER → 2023-12-20 13:09 | Outpatient (CLI) | payer MEDICARE, SELFPAY ==
[2023-10-11 02:16] VITALS: BMI 41.8
--- NOTE | 2023-12-20 13:09 | DI.US.S_ITS ---
PROCEDURE: US THYROID INDICATIONS: Nontoxic single thyroid nodule TECHNIQUE: Real-time scanning was performed of the thyroid gland, with image documentation. COMPARISON: [facility], US, US THYROID, 05/11/2022, 13:33. FINDINGS: Thyroid: Right lobe measures 6.5 x 2.5 x 4.1 cm. Left lobe measures 6 x 2.4 x 2.8 cm. Isthmus is 0.9 cm thick. Echotexture is heterogeneous. Right superior nodule measures 1.7 x 1.5 x 1.1 cm. There are peripheral calcifications. This is solid and hypoechoic, increased in size. TR 4. Sampling is recommended. Right inferior nodule measures 2.1 x 1.7 x 1.5 cm. It is solid and hypoechoic. No calcifications. TR 4. Technically, sampling is recommended. This was not measured previously. Left mid to inferior nodule measures 1 x 1.2 x 0.8 cm. It is solid and hypoechoic. TR 4. Follow-up recommended. This is stable Left inferior thyroid nodule measures 1 x 1 x 0.8 cm. It is solid and hypoechoic. TR 4. Follow-up is recommended. This is stable IMPRESSION: Sampling is recommended for the right thyroid nodules. The right superior nodule is more suspicious, given calcifications, and should be prioritized. ACR TI-RADS definitions and recommendations: TI-RADS 1 (benign): 0 points. FNA not needed. TI-RADS 2 (not suspicious): 2 points. FNA not needed. TI-RADS 3 (mildly suspicious): 3 points. * FNA if 2.5 cm or larger, follow up if 1.5 cm or larger (at 1, 3, and 5 years). TI-RADS 4 (moderately suspicious): 4-6 points. * FNA if 1.5 cm or larger, follow up if 1 cm or larger (at 1, 2, 3, and 5 years). TI-RADS 5 (highly suspicious): 7 points or more. * FNA if 1 cm or larger, follow up if 0.5 cm or larger (every year for 5 years). Dictated by: Ernie Cruz M.D. on 12/20/2023 at 17:05 Approved by: Ernie Cruz M.D. on 12/20/2023 at 17:11
== END ==
LOC: US 13:09
PROVIDERS: PCP Nurse Practitioner Family; Referring Provider Nurse Practitioner Family; Visit Provider Nurse Practitioner Family
DX: E04.2 Nontoxic multinodular goiter (principal)
CPT/HCPCS: 76536

== ENCOUNTER 2023-12-26 19:32 | Emergency (ER) | payer MEDICARE, SELFPAY ==
[2023-10-11 02:16] VITALS: BMI 41.8
[2023-12-26] VITALS (7 sets, daily range): BP systolic 128–139; BP diastolic 59–71; PULSE 79–83; RESP 16–20; TEMP 36.6; O2SAT 97–99; BMI 44.3
[2023-12-26 20:23] LABS: Add Manual Diff / Slide Review NO; Basophils Absolute Auto 0 /uL (0-100); Basophils Percent Auto 0.3 % (0-2); Eosinophils Absolute Auto 0 /uL (0-450); Hematocrit 34.2 % (36-46); Hemoglobin 11.5 g/dL (12.0-16.0); Lymphocytes Absolute Auto 1200 /uL (1100-4500); Lymphocytes Percent Auto 12.1 % (25-40); Mean Corpuscular HGB Conc 33.6 % (30-36); Mean Corpuscular Hemoglobin 31.4 PG (26-34); Mean Corpuscular Volume 93.5 fL (80-100); Monocytes Absolute Auto 300 /uL (0-900); Neutrophils Absolute Auto 8200 /uL (1500-7000); Neutrophils Percent Auto 84.6 % (50-75); Platelet Count 228 X10^3/uL (150-400); Red Blood Cell Count 3.66 X10^6/uL (4.0-5.2); Red Cell Distribution Width 13.6 % (11.6-14.8); White Blood Cell Count 9.6 X10^3/uL (4.5-11.0)
[2023-12-26 20:37] LABS: Alanine Aminotransferase 27 IU/L (<35); Albumin 4.1 g/dL (3.5-5.0); Albumin Globulin Ratio 1.5 (1.0-2.8); Alkaline Phosphatase 98 U/L (38-126); Aspartate Aminotransferase 27 IU/L (14-36); BUN Creatinine Ratio 31.6 (6-22); Bilirubin Total 0.6 mg/dL (0.2-1.3); Blood Urea Nitrogen 30 mg/dL (7-17); Calcium 8.7 mg/dL (8.4-10.2); Carbon Dioxide 23 mmol/L (22-32); Chloride 102 mmol/L (98-107); Estimated Glomerular Filt Rate > 60 mL/min (>60); Globulin 2.7 g/dL (1.7-4.1); Glucose 437 mg/dL (80-110); HEMOLYSIS 34 (0-50); Lipase 69 U/L (23-300); Potassium 4.8 mmol/L (3.4-5.1); Sodium 133 mmol/L (137-145); Total Protein 6.8 g/dL (6.3-8.2)
[2023-12-26 20:44] LABS: Ketones (Beta-Hydroxybutyrate) < 0.20 mmol/L (<0.27)
--- NOTE | 2023-12-26 21:23 | ED.RECABL ---
HPI - Recheck/Abnormal Lab/Rx General Chief Complaint: Recheck/Abnormal Lab/Rx Stated Complaint: Hyperglycemia Time Seen by Provider: 12/26/23 21:15 Source: patient and EMS Mode of arrival: EMS Limitations: no limitations History of Present Illness HPI narrative: 78-year-old female. Has a diabetic. She was not on insulin but does take Ozempic. She states that yesterday she found out from her primary doctor that she has nodules on her thyroid that maybe malignant. It caused her to have quite a bit of stress yesterday. She was also having some lower back discomfort so she was placed on steroids. Because of the stress she stated that she ate cookies this morning and then had a large helping of ice cream this afternoon. When the living facility checked her blood sugar this evening was greater than 500. She was sent to the emergency department. She has no specific symptoms related to the elevation in blood sugar. Related Data Home Medications Medication Instructions Recorded Confirmed duloxetine 20 mg capsule,delayed 20 mg PO DAILY 06/15/23 10/11/23 release propranolol 20 mg tablet 20 mg PO BEDTIME 06/15/23 10/11/23 quetiapine 25 mg tablet 25 mg PO BEDTIME 06/15/23 10/11/23 rosuvastatin 40 mg tablet 40 mg PO DAILY 06/15/23 10/11/23 insulin glargine 100 unit/mL (3 34 unit SUBCUT 2100 07/05/23 10/11/23 mL) subcutaneous pen (Lantus Solostar U-100 Insulin) potassium chloride 10 mEq 10 meq PO Q OTHER DAY 07/05/23 10/11/23 tablet,extended release amlodipine 10 mg tablet 10 mg PO DAILY 09/27/23 10/11/23 clobetasol 0.05 % topical ointment 1 applic topical DAILY 09/27/23 10/11/23 diclofenac sodium 75 mg 75 mg PO BID 09/27/23 10/11/23 tablet,delayed release fluoxetine 20 mg tablet 40 mg PO DAILY 09/27/23 10/11/23 glipizide 5 mg tablet 5 mg PO BID 09/27/23 10/11/23 Previous Rx's Medication Instructions Recorded meloxicam 7.5 mg tablet See Rx Instructions .Route 12/04/23 .COMPLEX #30 tabs Allergies Allergy/AdvReac Type Severity Reaction Status Date / Time morphine AdvReac Nightmare Verified 12/26/23 19:55 Review of Systems Review of Systems Narrative: See HPI Patient History Medical History Secondhand smoke exposure Lichen sclerosus et atrophicus Microscopic hematuria Urge incontinence Hx of migraine headaches History of depression History of chronic urinary tract infection History of arthritis Peripheral neuropathy Depression Hyperlipidemia Fibromyalgia Hypertension Lower leg edema Diabetes Surgical History Hx of abdominal hysterectomy Hx of breast biopsy Hx of total knee replacement Hx of cholecystectomy Hx of appendectomy Family History Mother Cancer CVA (cerebral vascular accident) Hyperlipidemia Hypertension Father Hypertension Hyperlipidemia CAD (coronary artery disease) Sister Hyperlipidemia Hypertension Diabetes mellitus Multiple kidney stones Migraines Brother Hyperlipidemia Hypertension Migraines Eczema Social History marital status: number of children: 4 household members: none lives independently: Yes Smoking Status: Never smoker alcohol intake: current caffeine: Yes Type(s) of exercise: walking frequency: 3-4 times per week duration: 15-30 minutes/day Smoking Status: Never smoker alcohol intake frequency: holidays/special occasions only Substance Use Type: does not use Exam Initial Vital Signs Initial Vital Signs: Vital Signs Temperature 97.8 F 12/26/23 19:50 Pulse Rate 82 12/26/23 19:50 Respiratory Rate 16 12/26/23 19:50 Blood Pressure 134/62 12/26/23 19:50 Pulse Oximetry 98 12/26/23 19:50 Oxygen Delivery Method Room Air 12/26/23 19:50 HENMT Head: normal to inspection and normocephalic Resp Effort & Inspection: normal respiratory effort Cardio Rate: regular rate GI Inspection: non-distended Neuro General: patient alert, patient awake and moves all extremities Course Orders Ordered: ED Orders 12/26/23 20:13 Complete Blood Count AUTO DIFF Stat Comprehensive Metabolic Panel Stat Ketones (Beta-Hydroxybutyrate) Stat Lipase Stat Discontinued Medications Sodium Chloride (Normal Saline 0.9%) 1,000 mls @ 1,000 mls/hr IV BOLUS ONE Stop: 12/26/23 21:18 Last Infusion: 12/26/23 23:15 Dose: Infused Documented By: Admin: 12/26/23 21:46 Dose: 1,000 mls/hr Documented By: PAPITO Insulin Human Regular (Insulin Regular 100 Unit/Ml 3 Ml Vial) 5 unit IV NOW ONE Stop: 12/26/23 21:25 Last Admin: 12/26/23 21:48 Dose: 5 unit Documented By: PAPITO Co-signed By: KEVON Vital Signs Vital signs: Vital Signs - 8 hr 12/26/23 19:50 12/26/23 21:52 12/26/23 22:00 Temperature 97.8 F Pulse Rate 82 Respiratory Rate 16 Blood Pressure 134/62 135/60 131/60 Pulse Oximetry 98 Oxygen Delivery Method Room Air 12/26/23 22:00 12/26/23 22:00 12/26/23 22:06 Temperature Pulse Rate 81 79 Respiratory Rate Blood Pressure 131/60 Pulse Oximetry 97 97 Oxygen Delivery Method Room Air 12/26/23 22:06 12/26/23 22:30 12/26/23 22:31 Temperature Pulse Rate 81 81 Respiratory Rate 19 Blood Pressure 128/59 L Pulse Oximetry 99 99 Oxygen Delivery Method Room Air Room Air 12/26/23 22:31 12/26/23 23:00 Temperature Pulse Rate 83 Respiratory Rate 20 Blood Pressure 139/71 Pulse Oximetry 98 Oxygen Delivery Method Room Air MDM - Recheck/Abnormal Lab/Rx Lab Data Attestation: I reviewed the patient's lab results. 12/26/23 20:13 12/26/23 20:13 Labs: Lab Results 12/26/23 Range/Units 20:13 WBC 9.6 (4.5-11.0) X10^3/uL RBC 3.66 L (4.0-5.2) X10^6/uL Hgb 11.5 L (12.0-16.0) g/dL Hct 34.2 L (36-46) % MCV 93.5 (80-100) fL MCH 31.4 (26-34) PG MCHC 33.6 (30-36) % RDW 13.6 (11.6-14.8) % Plt Count 228 (150-400) X10^3/uL Neut % (Auto) 84.6 H (50-75) % Lymph % (Auto) 12.1 L (25-40) % [place] % (Auto) 3.0 (3-14) % Eos % (Auto) 0.0 L (2-4) % Baso % (Auto) 0.3 (0-2) % Neut # (Auto) 8200 H (4799-6256) /uL Lymph # (Auto) 1200 (3359-0461) /uL [place] # (Auto) 300 (0-900) /uL Eos # (Auto) 0 (0-450) /uL Baso # (Auto) 0 (0-100) /uL Sodium 133 L (137-145) mmol/L Potassium 4.8 (3.4-5.1) mmol/L Chloride 102 (98-107) mmol/L Carbon Dioxide 23 (22-32) mmol/L BUN 30 H (7-17) mg/dL Creatinine 0.95 (0.52-1.04) mg/dL Estimated GFR > 60 (>60) mL/min BUN/Creatinine Ratio 31.6 H (6-22) Glucose 437 H (80-110) mg/dL Calcium 8.7 (8.4-10.2) mg/dL Total Bilirubin 0.6 (0.2-1.3) mg/dL AST 27 (14-36) IU/L ALT 27 (<35) IU/L Alkaline Phosphatase 98 (38-126) U/L Total Protein 6.8 (6.3-8.2) g/dL Albumin 4.1 (3.5-5.0) g/dL Globulin 2.7 (1.7-4.1) g/dL Albumin/Globulin Ratio 1.5 (1.0-2.8) Lipase 69 (23-300) U/L Ketones < 0.20 (<0.27) mmol/L Point of Care Testing Glucose POC 303 MDM Narrative Medical decision making narrative: Patient is hyperglycemic but is not in DKA. After fluids and a dose of insulin her blood sugar improved. No indication for admission to hospital. I suspect that the elevation of blood sugar related to her stress, the steroids and her indiscretion with eating earlier today. She was given return precautions. She expressed understanding and agreement. Discharge Plan Departure Patient Disposition: Home Clinical Impression: Hyperglycemia Instructions: DI for Hyperglycemia -- Adult Activity Restrictions/Additional Instructions: Like we discussed I suspect that the elevated blood sugars related to the stress he has been under the past couple days, the steroids that you were taking and also the foods that you eat today. I do recommend that you continue to check your blood sugars at home. Continue to take all of your medications as directed. Return to the emergency department for new or worsening symptoms. Prescriptions: No Action duloxetine 20 mg capsule,delayed release(DR/EC) 20 mg PO DAILY quetiapine 25 mg tablet 25 mg PO BEDTIME propranolol 20 mg tablet 20 mg PO BEDTIME rosuvastatin 40 mg tablet 40 mg PO DAILY Patient Comments: All the medicines I'm taking in this hospital is in my record. insulin glargine [Lantus Solostar U-100 Insulin] 100 unit/mL (3 mL) insulin pen 34 unit SUBCUT 2100 potassium chloride 10 mEq tablet extended release 10 meq PO Q OTHER DAY amlodipine 10 mg tablet 10 mg PO DAILY fluoxetine 20 mg tablet 40 mg PO DAILY diclofenac sodium 75 mg tablet,delayed release (DR/EC) 75 mg PO BID clobetasol 0.05 % ointment 1 applic topical DAILY glipizide 5 mg tablet 5 mg PO BID meloxicam 7.5 mg tablet See Rx Instructions .ROUTE .COMPLEX Qty: 30 2RF Rx Instructions: 1-2 tabs Po daily as needed for knee pain Referrals: Monie Santamaria, RN [Primary Care Provider] - Stand Alone Forms: Patient Portal/API
[2023-12-26] MEDS: SODIUM CHLORIDE 0.9% 1,000 ML 1000 ML IV (21:46)
[2023-12-26] MEDS: INSULIN REGULAR 100 UNIT/ML 3 ML VIAL IV (21:48)
== END 2023-12-27 00:24 | disposition home or self-care (01) ==
PROVIDERS: Emergency Provider Emergency Medicine; PCP Nurse Practitioner Family
DX: R73.9 Hyperglycemia, unspecified (principal)
CPT/HCPCS: 80053; 82009; 82962; 83690; 85025; 96374; 99283; 99284

== ENCOUNTER 2023-12-31 17:06 | Emergency (ER) | payer MEDICARE, SELFPAY ==
[2023-10-11 02:16] VITALS: BMI 41.8
[2023-12-31] VITALS (13 sets, daily range): BP systolic 137–156; BP diastolic 65–88; PULSE 77–86; RESP 17–22; TEMP 36.7; O2SAT 95–98; BMI 44.1
--- NOTE | 2023-12-31 17:55 | ED_ITS ---
HPI - General Adult General Chief complaint: Diabetic Problem Stated complaint: Blood sugar issues Time Seen by Provider: 12/31/23 17:40 Source: patient and EMS Mode of arrival: EMS History of Present Illness HPI narrative: 78-year-old female with history of diabetes (on ozempic, no insulin) presents by EMS from her assisted living facility for elevated blood glucose and fogginess. Patient was seen on 12/25 for hyperglycemia, likely attributed to being placed on steroids for back pain. Patient states that she has been under a lot of stress recently as she has been told by her primary care doctor that her thyroid may have a malignancy present. She states that she has been crying a lot and barely sleeping due to the stress of this new diagnosis. This morning her blood sugar was in the 70s, however this afternoon her blood glucose was as high as 270 and she felt very ?mentally foggy?, and so she requested to have 911 called to bring her in for evaluation. Patient denies numbness, weakness, headache, vision changes, other complaints at this time. Related Data Home Medications Medication Instructions Recorded Confirmed duloxetine 20 mg capsule,delayed 20 mg PO DAILY 06/15/23 10/11/23 release propranolol 20 mg tablet 20 mg PO BEDTIME 06/15/23 10/11/23 quetiapine 25 mg tablet 25 mg PO BEDTIME 06/15/23 10/11/23 rosuvastatin 40 mg tablet 40 mg PO DAILY 06/15/23 10/11/23 insulin glargine 100 unit/mL (3 34 unit SUBCUT 2100 07/05/23 10/11/23 mL) subcutaneous pen (Lantus Solostar U-100 Insulin) potassium chloride 10 mEq 10 meq PO Q OTHER DAY 07/05/23 10/11/23 tablet,extended release amlodipine 10 mg tablet 10 mg PO DAILY 09/27/23 10/11/23 clobetasol 0.05 % topical ointment 1 applic topical DAILY 09/27/23 10/11/23 diclofenac sodium 75 mg 75 mg PO BID 09/27/23 10/11/23 tablet,delayed release fluoxetine 20 mg tablet 40 mg PO DAILY 09/27/23 10/11/23 glipizide 5 mg tablet 5 mg PO BID 09/27/23 10/11/23 Previous Rx's Medication Instructions Recorded meloxicam 7.5 mg tablet See Rx Instructions .Route 12/04/23 .COMPLEX #30 tabs Allergies Allergy/AdvReac Type Severity Reaction Status Date / Time morphine AdvReac Nightmare Verified 12/26/23 19:55 Review of Systems Review of Systems Narrative: See HPI Patient History Medical History Secondhand smoke exposure Lichen sclerosus et atrophicus Microscopic hematuria Urge incontinence Hx of migraine headaches History of depression History of chronic urinary tract infection History of arthritis Peripheral neuropathy Depression Hyperlipidemia Fibromyalgia Hypertension Lower leg edema Diabetes Surgical History Hx of abdominal hysterectomy Hx of breast biopsy Hx of total knee replacement Hx of cholecystectomy Hx of appendectomy Family History Mother Cancer CVA (cerebral vascular accident) Hyperlipidemia Hypertension Father Hypertension Hyperlipidemia CAD (coronary artery disease) Sister Hyperlipidemia Hypertension Diabetes mellitus Multiple kidney stones Migraines Brother Hyperlipidemia Hypertension Migraines Eczema Social History marital status: number of children: 4 household members: none lives independently: Yes Smoking Status: Never smoker alcohol intake: current caffeine: Yes Type(s) of exercise: walking frequency: 3-4 times per week duration: 15-30 minutes/day Smoking Status: Never smoker alcohol intake frequency: holidays/special occasions only Substance Use Type: does not use Exam Initial Vital Signs Initial Vital Signs: Vital Signs Temperature 98.0 F 12/31/23 17:09 Pulse Rate 80 12/31/23 17:09 Respiratory Rate 18 12/31/23 17:09 Blood Pressure 156/72 H 12/31/23 17:09 Pulse Oximetry 98 12/31/23 17:09 Oxygen Delivery Method Room Air 12/31/23 17:09 Const: Awake, alert, no acute distress, nontoxic appearing Cardiac: regular rate, regular rhythm RESP: unlabored, clear bilaterally, no wheezing GI: Soft, nontender, nondistended, no rebound, no guarding MSK: Atraumatic, full range of motion, pulses equal Skin: Warm, Dry, intact, no rashes Neuro: AO x3, CN II-XII grossly intact, moves all extremities Course Orders Ordered: ED Orders 12/31/23 17:25 EKG-12 Lead Stat 12/31/23 17:55 Complete Blood Count AUTO DIFF Stat Comprehensive Metabolic Panel Stat TSH [Thyroid Stimulating Hormone] Stat 12/31/23 19:15 Urine Microscopic Stat Discontinued Medications Sodium Chloride (Normal Saline 0.9%) 1,000 mls @ 1,000 mls/hr IV BOLUS ONE Stop: 12/31/23 19:03 Last Infusion: 12/31/23 19:13 Dose: Infused Documented By: Admin: 12/31/23 18:15 Dose: 1,000 mls/hr Documented By: PAPITO Vital Signs Vital signs: Vital Signs - 8 hr 12/31/23 17:09 12/31/23 17:12 12/31/23 17:13 Temperature 98.0 F Pulse Rate 80 84 82 Respiratory Rate 18 20 19 Blood Pressure 156/72 H Pulse Oximetry 98 98 97 Oxygen Delivery Method Room Air 12/31/23 17:13 12/31/23 17:30 12/31/23 17:31 Temperature Pulse Rate 78 78 Respiratory Rate 19 17 Blood Pressure 156/72 H Pulse Oximetry 98 96 Oxygen Delivery Method Room Air 12/31/23 17:31 12/31/23 17:42 12/31/23 17:42 Temperature Pulse Rate 79 Respiratory Rate 20 Blood Pressure 137/72 156/74 H Pulse Oximetry 96 Oxygen Delivery Method 12/31/23 18:00 12/31/23 18:01 12/31/23 18:01 Temperature Pulse Rate 77 80 Respiratory Rate 20 20 Blood Pressure 148/88 H Pulse Oximetry 97 97 Oxygen Delivery Method 12/31/23 18:30 12/31/23 18:31 12/31/23 18:31 Temperature Pulse Rate 80 81 Respiratory Rate 18 21 Blood Pressure 143/65 H Pulse Oximetry 95 96 Oxygen Delivery Method 12/31/23 19:00 12/31/23 19:00 12/31/23 19:27 Temperature Pulse Rate 81 86 Respiratory Rate 20 21 Blood Pressure 149/66 H Pulse Oximetry 95 97 Oxygen Delivery Method Room Air Room Air 12/31/23 19:27 12/31/23 19:30 12/31/23 19:30 Temperature Pulse Rate 79 Respiratory Rate 22 Blood Pressure 154/69 H 151/65 H Pulse Oximetry 95 Oxygen Delivery Method Room Air Medical Decision Making Lab Data 12/31/23 17:55 12/31/23 17:55 Labs: Lab Results 12/31/23 12/31/23 Range/Units 17:55 19:15 WBC 10.2 (4.5-11.0) X10^3/uL RBC 3.86 L (4.0-5.2) X10^6/uL Hgb 12.2 (12.0-16.0) g/dL Hct 35.7 L (36-46) % MCV 92.6 (80-100) fL MCH 31.6 (26-34) PG MCHC 34.1 (30-36) % RDW 13.6 (11.6-14.8) % Plt Count 235 (150-400) X10^3/uL Neut % (Auto) 82.5 H (50-75) % Lymph % (Auto) 14.6 L (25-40) % [place] % (Auto) 2.5 L (3-14) % Eos % (Auto) 0.1 L (2-4) % Baso % (Auto) 0.3 (0-2) % Neut # (Auto) 8400 H (1420-2695) /uL Lymph # (Auto) 1500 (7201-9075) /uL [place] # (Auto) 300 (0-900) /uL Eos # (Auto) 0 (0-450) /uL Baso # (Auto) 0 (0-100) /uL Sodium 136 L (137-145) mmol/L Potassium 5.1 (3.4-5.1) mmol/L Chloride 105 (98-107) mmol/L Carbon Dioxide 23 (22-32) mmol/L BUN 28 H (7-17) mg/dL Creatinine 0.90 (0.52-1.04) mg/dL Estimated GFR > 60 (>60) mL/min BUN/Creatinine Ratio 31.1 H (6-22) Glucose 247 H D (80-110) mg/dL Calcium 9.0 (8.4-10.2) mg/dL Total Bilirubin 0.7 (0.2-1.3) mg/dL AST 29 (14-36) IU/L ALT 29 (<35) IU/L Alkaline Phosphatase 98 (38-126) U/L Total Protein 6.5 (6.3-8.2) g/dL Albumin 3.9 (3.5-5.0) g/dL Globulin 2.6 (1.7-4.1) g/dL Albumin/Globulin Ratio 1.5 (1.0-2.8) TSH 0.291 L (0.47-4.68) uIU/mL Urine RBC 0-1/hpf (0-5/HPF) Urine WBC 0-1/hpf (0-5/HPF) Ur Squamous Epith Cells 5-10 /hpf H (0-5/HPF) Urine Bacteria Many (>30) H (None) Ur Culture Indicated? Cult not indicated Vol Urine Centrifuged 10ml (spun) Point of Care Testing Glucose POC 217 Urine Dip Bedside Urine Glucose 250 mg/dl Bedside Urine Bilirubin - Negative Bedside Urine Ketone - Negative Urine Specific [place] 1.015 Bedside Urine Occult Blood +/- Bedside Urine pH 6.5 Bedside Urine Protein - Negative Bedside Urine Urobilinogen - Negative Bedside Urine Nitrite - Negative Bedside Urine Leukocytes - Negative Esterase Point of care testing: Point of Care Testing Glucose POC 217 Urine Dip Bedside Urine Glucose 250 mg/dl Bedside Urine Bilirubin - Negative Bedside Urine Ketone - Negative Urine Specific [place] 1.015 Bedside Urine Occult Blood +/- Bedside Urine pH 6.5 Bedside Urine Protein - Negative Bedside Urine Urobilinogen - Negative Bedside Urine Nitrite - Negative Bedside Urine Leukocytes - Negative Esterase MDM Narrative Medical decision making narrative: Well-appearing patient with variable blood glucoses and ?fogginess?. She iss alert, oriented, NIH of 0. Glucose on arrival <300. I do believe that patient's symptoms are multifactorial. She does state that she has barely slept and has been under severe stress due to her thyroid nodules. She is also on steroids for lower back pain. Laboratory work is reviewed. WBC count 10.2, hemoglobin 12.2, platelets 235, sodium 136, potassium 5.1, CO2 23, creatinine 0.9, glucose 247, TSH 0.291. Anion gap is not elevated. Urinalysis negative for signs of infection. Patient given L of IV fluids, repeat glucose 217. Patient reports feeling significantly better. Patient informed of laboratory results, since she was on Ozempic and had an injection 3 days ago insulin is contraindicated. She was advised to closely monitor her carbohydrate intake for glucose control. She was informed of her TSH results, she states that she has an appointment with her primary care doctor tomorrow. Discharge Plan Departure Patient Disposition: Home Clinical Impression: Hyperglycemia Instructions: DI for Diabetes Type 2 Activity Restrictions/Additional Instructions: Your laboratory work today did not indicate any signs of infection. Your urine was negative for signs of infection. You did have a mildly elevated blood glucose, which we treated with fluids. I did measure a thyroid stimulating hormone level, which was slightly low (0.291 normal range 0.47-4.68). I would discuss this with your primary care doctor to see if any additional studies are needed. Steroids and stress can increase your sugar levels. Since you are on Ozempic I do not recommend restarting insulin. Please watch your diet and monitor your carbohydrate intake to prevent large fluctuations in your blood sugar while you are on steroids. Prescriptions: No Action duloxetine 20 mg capsule,delayed release(DR/EC) 20 mg PO DAILY quetiapine 25 mg tablet 25 mg PO BEDTIME propranolol 20 mg tablet 20 mg PO BEDTIME rosuvastatin 40 mg tablet 40 mg PO DAILY Patient Comments: All the medicines I'm taking in this hospital is in my record. insulin glargine [Lantus Solostar U-100 Insulin] 100 unit/mL (3 mL) insulin pen 34 unit SUBCUT 2100 potassium chloride 10 mEq tablet extended release 10 meq PO Q OTHER DAY amlodipine 10 mg tablet 10 mg PO DAILY fluoxetine 20 mg tablet 40 mg PO DAILY diclofenac sodium 75 mg tablet,delayed release (DR/EC) 75 mg PO BID clobetasol 0.05 % ointment 1 applic topical DAILY glipizide 5 mg tablet 5 mg PO BID meloxicam 7.5 mg tablet See Rx Instructions .ROUTE .COMPLEX Qty: 30 2RF Rx Instructions: 1-2 tabs Po daily as needed for knee pain Referrals: Monie Santamaria RN [Primary Care Provider] - Stand Alone Forms: Patient Portal/API
[2023-12-31 18:04] LABS: Add Manual Diff / Slide Review NO; Basophils Absolute Auto 0 /uL (0-100); Basophils Percent Auto 0.3 % (0-2); Eosinophils Absolute Auto 0 /uL (0-450); Eosinophils Percent Auto 0.1 % (2-4); Hematocrit 35.7 % (36-46); Hemoglobin 12.2 g/dL (12.0-16.0); Lymphocytes Absolute Auto 1500 /uL (1100-4500); Lymphocytes Percent Auto 14.6 % (25-40); Mean Corpuscular HGB Conc 34.1 % (30-36); Mean Corpuscular Hemoglobin 31.6 PG (26-34); Mean Corpuscular Volume 92.6 fL (80-100); Monocytes Absolute Auto 300 /uL (0-900); Monocytes Percent Auto 2.5 % (3-14); Neutrophils Absolute Auto 8400 /uL (1500-7000); Neutrophils Percent Auto 82.5 % (50-75); Platelet Count 235 X10^3/uL (150-400); Red Blood Cell Count 3.86 X10^6/uL (4.0-5.2); Red Cell Distribution Width 13.6 % (11.6-14.8); White Blood Cell Count 10.2 X10^3/uL (4.5-11.0)
[2023-12-31] MEDS: SODIUM CHLORIDE 0.9% 1,000 ML 1000 ML IV (18:15)
--- NOTE | 2023-12-31 18:16 | PC.NURSE ---
Pt reports bilateral ear pain and sore throat that began after lunch.
[2023-12-31 18:20] LABS: Alanine Aminotransferase 29 IU/L (<35); Albumin 3.9 g/dL (3.5-5.0); Albumin Globulin Ratio 1.5 (1.0-2.8); Alkaline Phosphatase 98 U/L (38-126); Aspartate Aminotransferase 29 IU/L (14-36); BUN Creatinine Ratio 31.1 (6-22); Bilirubin Total 0.7 mg/dL (0.2-1.3); Blood Urea Nitrogen 28 mg/dL (7-17); Carbon Dioxide 23 mmol/L (22-32); Chloride 105 mmol/L (98-107); Estimated Glomerular Filt Rate > 60 mL/min (>60); Globulin 2.6 g/dL (1.7-4.1); Glucose 247 mg/dL (80-110); HEMOLYSIS < 15 (0-50); Potassium 5.1 mmol/L (3.4-5.1); Sodium 136 mmol/L (137-145); Total Protein 6.5 g/dL (6.3-8.2)
[2023-12-31 18:51] LABS: Thyroid Stimulating Hormone 0.291 uIU/mL (0.47-4.68)
[2023-12-31 19:46] LABS: Bacteria Urine Many (>30); Culture Indicated Urine Cult Not Indicated; RBC Urine 0-1/HPF (0-5/HPF); Squamous Epithelial Cell Urine 5-10 /HPF (0-5/HPF); Urine Volume 10mL (spun); WBC Urine 0-1/HPF (0-5/HPF)
== END 2023-12-31 19:59 | disposition home or self-care (01) ==
PROVIDERS: Emergency Medicine; Emergency Provider Emergency Medicine; PCP Nurse Practitioner Family
DX: E11.65 Type 2 diabetes mellitus with hyperglycemia (principal); Z79.85 Long-term (current) use of injectable non-insulin antidiabetic drugs
CPT/HCPCS: 80053; 81003; 81015; 82962; 84443; 85025; 93005; 99282; 99284

== ENCOUNTER → 2024-01-09 07:49 | Outpatient (CLI) | payer MEDICARE, SELFPAY ==
[2023-10-11 02:16] VITALS: BMI 41.8
--- NOTE | 2024-01-09 | PATH_ITS ---
Note [facility] Accession Number: [id number] TESTS RESULT FLAG UNITS REF RANGE LAB Clinician Provided Cytology Information No. of containers..01 Other (Miscellaneous) No. of containers..02 Previously Prepared Cytology Slide Source: 01 RIGHT SUPERIOR THYROID NODULE # 1 (A) DIAGNOSIS: 01 RIGHT SUPERIOR THYROID NODULE #1, FINE NEEDLE ASPIRATION.(A) ADEQUATE FOR EVALUATION. FOLLICULAR GROUPS ARE PRESENT. BENIGN FOLLICULAR (GOITEROUS) NODULE (BETHESDA CATEGORY II), SEE COMMENT. COMMENT: MICROSCOPIC EXAMINATION REVEALS A MILDLY CELLULAR ASPIRATE, COMPOSED OF COLLOID AND FOLLICULAR GROUPS WITHOUT SIGNIFICANT CYTOLOGIC OR ARCHITECTURAL ATYPIA. THESE FINDINGS SUPPORT A BENIGN FOLLICULAR (GOITEROUS) NODULE. CORRELATION WITH CLINICAL AND RADIOGRAPHIC FINDINGS IS RECOMMENDED. ACCORDING TO THE [place] REPORTING SYSTEM FOR THYROID CYTOPATHOLOGY, THE RISK OF MALIGNANCY IN THE CATEGORY BENIGN-CATEGORY II IS 0-3%; THEREFORE RECOMMEND CONTINUED ULTRASOUND SURVEILLANCE WITH REPEAT FNA IF THE NODULE SIGNIFICANTLY INCREASES IN SIZE. Pathologist ICD10: 01 E04.2 Signed out by: Carmina Villalta MD, Pathologist NPI- [id number] Performed by: Carmina Kirkpatrick, University Archivist ([facility]) Gross description: 01 30 CC, PINK, CLEAR RECIEVED: IN CYTOLYT WITH 6 ALCOHOL FIXED AND 6 QUICK STAINED SLIDES ALSO 1 RNA VIAL WILL ON 05-18-2025.VO /VDU 01/10/[address] [place] [address] FLAG LEGEND: L-Low Normal,H-High Normal,LL-Alert Low,HH-Alert High <-Panic Low,>-Panic High,A-Abnormal,AA-Critical Abnormal Performed at: 01 =Z [address], [place] [address] Den Reynaga MD, Specimen Comment: [id number] Performed at: [address], [place], [place] [id number] MD Den Reynaga MD Phone: [phone]
--- NOTE | 2024-01-09 | PATH_ITS ---
Note [facility] Accession Number: [id number] TESTS RESULT FLAG UNITS REF RANGE LAB Clinician Provided Cytology Information No. of containers..01 Other (Miscellaneous) No. of containers..02 Previously Prepared Cytology Slide Source: 01 RIGHT INFERIOR THYROID NODULE # 2 (B) DIAGNOSIS: 01 RIGHT INFERIOR THYROID NODULE #2, FINE NEEDLE ASPIRATION (B) ADEQUATE FOR EVALUATION. FOLLICULAR GROUPS ARE PRESENT. BENIGN FOLLICULAR (GOITEROUS) NODULE (BETHESDA CATEGORY II), SEE COMMENT. COMMENT: MICROSCOPIC EXAMINATION REVEALS A MILDLY CELLULAR ASPIRATE, COMPOSED OF COLLOID AND FOLLICULAR GROUPS WITHOUT SIGNIFICANT CYTOLOGIC OR ARCHITECTURAL ATYPIA. THESE FINDINGS SUPPORT A BENIGN FOLLICULAR (GOITEROUS) NODULE. CORRELATION WITH CLINICAL AND RADIOGRAPHIC FINDINGS IS RECOMMENDED. ACCORDING TO THE [place] REPORTING SYSTEM FOR THYROID CYTOPATHOLOGY, THE RISK OF MALIGNANCY IN THE CATEGORY BENIGN-CATEGORY II IS 0-3%; THEREFORE RECOMMEND CONTINUED ULTRASOUND SURVEILLANCE WITH REPEAT FNA IF THE NODULE SIGNIFICANTLY INCREASES IN SIZE. Pathologist ICD10: 01 E04.2 Signed out by: Carmina Villalta MD, Pathologist NPI- [id number] Performed by: Carmina Villalobos, Puffer Tender ([facility]) Gross description: 01 30 CC, RED, CLOUDY RECIEVED: IN CYTOLYT WITH 6 ALCOHOL FIXED AND 6 QUICK STAINED SLIDES ALSO 1 RNA VIAL WILL ON 05-18-2025.VO /VDU 01/10/2024 [address] [facility] FLAG LEGEND: L-Low Normal,H-High Normal,LL-Alert Low,HH-Alert High <-Panic Low,>-Panic High,A-Abnormal,AA-Critical Abnormal Performed at: 01 =Z [address], [place] [address] Den Reynaga MD, Specimen Comment: [id number] Performed at: [address], [place], [place] [id number] MD Den Reynaga MD Phone: [phone]
--- NOTE | 2024-01-09 07:50 | DI.US.S_ITS ---
PROCEDURE: US FINE NEEDLE ASPIRATION INDICATIONS: Nontoxic multinodular goiter TECHNIQUE: The indications, alternatives, benefits, risks, and complications of the procedure were explained to the patient. Written informed consent was obtained and placed in the chart. The area of interest was examined sonographically and a site was chosen for ultrasound guided percutaneous sampling. The skin was prepared and draped in the usual fashion, and anesthetized with 1% lidocaine infiltrated from the skin down to the lesion. Multiple passes were then performed, with contents emptied into an appropriate pathology specimen container. A bandage was applied to the area of access at completion of the study. COMPARISON: [facility], , US THYROID, 12/20/2023, 13:39. FINDINGS: Location(s) of lesion(s) sampled: Right superior nodule measuring 1.7 cm. [place]: 25 gauge hypodermic needles x3. 22 gauge hypodermic needles x3. Medications: 1% lidocaine for local anaesthesia. Complications: None. Location(s) of lesion(s) sampled: Right inferior nodule measuring 2.1 cm. [place]: 25 gauge hypodermic needles x3. 22 gauge hypodermic needles x3. Medications: 1% lidocaine for local anaesthesia. Complications: None. IMPRESSION: Successful ultrasound-guided right superior and right inferior thyroid nodule fine needle aspiration, with cytology results pending. Dictated by: Oscar Rodriguez M.D. on 01/09/2024 at 9:51 Approved by: Oscar Rodriguez M.D. on 01/09/2024 at 9:52
[2024-01-09 11:03] LABS: Free T4, Direct Thyroxine 1.17 ng/dL (0.78-2.19)
[2024-01-09 11:16] LABS: Thyroid Stimulating Hormone 0.733 uIU/mL (0.47-4.68)
[2024-01-10 23:10] LABS: Anti Thyroglobulin Antibody <1.0 IU/mL (0.0-0.9); Thyroid Peroxidase Antibodies 11 IU/mL (0-34)
== END ==
PROVIDERS: PCP Nurse Practitioner Family; Referring Provider Nurse Practitioner Family; Visit Provider Nurse Practitioner Family
DX: E04.2 Nontoxic multinodular goiter (principal); E05.90 Thyrotoxicosis, unspecified without thyrotoxic crisis or storm
CPT/HCPCS: 10005; 10006; 36415; 84439; 84443; 84481; 86376; 86800

== ENCOUNTER 2024-01-21 13:33 | Emergency (ER) | payer MEDICARE, SELFPAY ==
[2023-10-11 02:16] VITALS: BMI 41.8
[2024-01-21] VITALS (10 sets, daily range): BP systolic 130–156; BP diastolic 61–85; PULSE 65–84; RESP 16–18; TEMP 36.3–36.9; O2SAT 91–97; BMI 41.1
--- NOTE | 2024-01-21 16:43 | ED_ITS ---
HPI - Extremity Problem <Wilmer Javed MD - Last Filed: 01/25/24 14:14> General Chief complaint: Extremity Problem,Nontraumatic Stated complaint: Right knee pain/yeast infection Time Seen by Provider: 01/21/24 16:40 Source: patient and EMS Mode of arrival: EMS History of Present Illness HPI Narrative: Patient brought here by ambulance from assisted living facility. Complaints 4 days of right knee pain and swelling. History of total right knee back in 2011. Has been doing well. Uses a walker. Has had swelling to the right knee. No known injury. Patient is diabetic. No fever chills. Patient also complains of bilateral inguinal crease yeast infection which she has had before and improved with nystatin cream. She has currently not on any antifungal cream. Related Data Home Medications Medication Instructions Recorded Confirmed duloxetine 20 mg capsule,delayed 20 mg PO DAILY 06/15/23 10/11/23 release propranolol 20 mg tablet 20 mg PO BEDTIME 06/15/23 10/11/23 quetiapine 25 mg tablet 25 mg PO BEDTIME 06/15/23 10/11/23 rosuvastatin 40 mg tablet 40 mg PO DAILY 06/15/23 10/11/23 insulin glargine 100 unit/mL (3 34 unit SUBCUT 2100 07/05/23 10/11/23 mL) subcutaneous pen (Lantus Solostar U-100 Insulin) potassium chloride 10 mEq 10 meq PO Q OTHER DAY 07/05/23 10/11/23 tablet,extended release amlodipine 10 mg tablet 10 mg PO DAILY 09/27/23 10/11/23 clobetasol 0.05 % topical ointment 1 applic topical DAILY 09/27/23 10/11/23 diclofenac sodium 75 mg 75 mg PO BID 09/27/23 10/11/23 tablet,delayed release fluoxetine 20 mg tablet 40 mg PO DAILY 09/27/23 10/11/23 glipizide 5 mg tablet 5 mg PO BID 09/27/23 10/11/23 Previous Rx's Medication Instructions Recorded meloxicam 7.5 mg tablet See Rx Instructions .Route 12/04/23 .COMPLEX #30 tabs Allergies Allergy/AdvReac Type Severity Reaction Status Date / Time morphine AdvReac Nightmare Verified 01/21/24 13:41 <Gladys Crow MD - Last Filed: 01/22/24 02:54> History of Present Illness HPI Narrative: Patient brought here by ambulance from assisted living facility. Complaints 4 days of right knee pain and swelling. History of total right knee back in 2011. Intermittently will have episodes of significant right knee pain most has lasted 2-1/2 weeks. Typically will simply improve. Up until 4 days ago had been doing well. She does have a walker and uses it regularly. Has had swelling to the right knee. No known injury. Patient is diabetic. No fever chills. Patient also complains of bilateral inguinal crease yeast infection which she has had before and improved with nystatin cream. She has currently not on any antifungal cream but does note that her primary care provider has called in prescription for her usual nystatin treatments and prescription is available for cook pickled meat at this time. She has not currently complaining of fevers, erythema, describes no new trauma that she is aware of to the knee. Of note her BMI is 41. Review of Systems <Gladys Crow MD - Last Filed: 01/22/24 02:54> Review of Systems Narrative: Pertinent positive and negative findings as per HPI Patient History <Wilmer Javed MD - Last Filed: 01/25/24 14:14> Medical History Secondhand smoke exposure Lichen sclerosus et atrophicus Microscopic hematuria Urge incontinence Hx of migraine headaches History of depression History of chronic urinary tract infection History of arthritis Peripheral neuropathy Depression Hyperlipidemia Fibromyalgia Hypertension Lower leg edema Diabetes Surgical History Hx of abdominal hysterectomy Hx of breast biopsy Hx of total knee replacement Hx of cholecystectomy Hx of appendectomy Family History Mother Cancer CVA (cerebral vascular accident) Hyperlipidemia Hypertension Father Hypertension Hyperlipidemia CAD (coronary artery disease) Sister Hyperlipidemia Hypertension Diabetes mellitus Multiple kidney stones Migraines Brother Hyperlipidemia Hypertension Migraines Eczema Social History marital status: number of children: 4 household members: none lives independently: Yes Smoking Status: Never smoker alcohol intake: current caffeine: Yes Type(s) of exercise: walking frequency: 3-4 times per week duration: 15-30 minutes/day Smoking Status: Never smoker alcohol intake frequency: holidays/special occasions only Substance Use Type: does not use Exam <Wilmer Javed MD - Last Filed: 01/25/24 14:14> Initial Vital Signs Initial Vital Signs: Vital Signs Temperature 97.3 F L 01/21/24 13:37 Pulse Rate 84 01/21/24 13:37 Respiratory Rate 16 01/21/24 13:37 Blood Pressure 156/67 H 01/21/24 13:37 Pulse Oximetry 97 01/21/24 13:37 Oxygen Delivery Method Room Air 01/21/24 13:37 <Gladys Crow MD - Last Filed: 01/22/24 02:54> Initial Vital Signs Initial Vital Signs: Vital Signs Temperature 97.3 F L 01/21/24 13:37 Pulse Rate 84 01/21/24 13:37 Respiratory Rate 16 01/21/24 13:37 Blood Pressure 156/67 H 01/21/24 13:37 Pulse Oximetry 97 01/21/24 13:37 Oxygen Delivery Method Room Air 01/21/24 13:37 General: Alert, appropriate, BMI of 41, in no acute distress Respiratory: Able to speak in full sentences, no obvious respiratory distress Skin: Significant intertrigo under her pannus and into the groin Neurologic: Grossly intact no obvious asymmetries or abnormalities Extremities: Patient is concerned with some mild swelling over the proximal tibia area that is not actually involving the joint or joint space self. The area is slightly tender to touch, not red or warmth. Knee itself has her baseline range of motion. Pain sounds like it is coming from the proximal tibia. Exam is somewhat limited by overall body habitus Psych: appropriate insight and affect, cooperative Course <Wilmer Javed MD - Last Filed: 01/25/24 14:14> Orders Ordered: Discontinued Medications Dexamethasone (Dexamethasone 4 Mg Tablet) 12 mg PO NOW ONE Stop: 01/21/24 18:57 Last Admin: 01/21/24 19:17 Dose: 12 mg Documented By: Ondansetron HCl (Ondansetron 4 Mg Odt) 4 mg SL NOW ONE Stop: 01/21/24 16:54 Last Admin: 01/21/24 17:00 Dose: 4 mg Documented By: JOVANI Oxycodone/Acetaminophen (Oxycodone/Acetaminophen 5/325 Tablet) 2 tab PO NOW ONE Stop: 01/21/24 16:54 Last Admin: 01/21/24 17:06 Dose: 2 tab Documented By: JOVANI Oxycodone/Acetaminophen (Oxycodone/Acetaminophen 5/325 Tablet) 1 tab PO NOW ONE Stop: 01/21/24 20:38 Last Admin: 01/21/24 20:54 Dose: 1 tab Documented By: Vital Signs Vital signs: Vital Signs - 8 hr 01/21/24 19:22 01/21/24 19:22 01/21/24 22:32 Temperature 98.4 F 98.5 F Pulse Rate 65 65 Respiratory Rate 18 18 Blood Pressure 136/61 154/85 H Pulse Oximetry 95 92 94 Oxygen Delivery Method Room Air Room Air <Gladys Crow MD - Last Filed: 01/22/24 02:54> Orders Ordered: Discontinued Medications Dexamethasone (Dexamethasone 4 Mg Tablet) 12 mg PO NOW ONE Stop: 01/21/24 18:57 Last Admin: 01/21/24 19:17 Dose: 12 mg Documented By: Ondansetron HCl (Ondansetron 4 Mg Odt) 4 mg SL NOW ONE Stop: 01/21/24 16:54 Last Admin: 01/21/24 17:00 Dose: 4 mg Documented By: JOVANI Oxycodone/Acetaminophen (Oxycodone/Acetaminophen 5/325 Tablet) 2 tab PO NOW ONE Stop: 01/21/24 16:54 Last Admin: 01/21/24 17:06 Dose: 2 tab Documented By: JOVANI Oxycodone/Acetaminophen (Oxycodone/Acetaminophen 5/325 Tablet) 1 tab PO NOW ONE Stop: 01/21/24 20:38 Last Admin: 01/21/24 20:54 Dose: 1 tab Documented By: Vital Signs Vital signs: Vital Signs - 8 hr 01/21/24 19:22 01/21/24 19:22 01/21/24 22:32 Temperature 98.4 F 98.5 F Pulse Rate 65 65 Respiratory Rate 18 18 Blood Pressure 136/61 154/85 H Pulse Oximetry 95 92 94 Oxygen Delivery Method Room Air Room Air MDM - Extremity (Nontraumatic) <Wilmer Javed MD - Last Filed: 01/25/24 14:14> Lab Data 01/21/24 18:59 01/21/24 18:59 Labs: Lab Results 01/21/24 Range/Units 18:59 WBC 11.1 H (4.5-11.0) X10^3/uL RBC 4.02 (4.0-5.2) X10^6/uL Hgb 12.4 (12.0-16.0) g/dL Hct 36.5 (36-46) % MCV 90.9 (80-100) fL MCH 30.9 (26-34) PG MCHC 34.0 (30-36) % RDW 13.3 (11.6-14.8) % Plt Count 264 (150-400) X10^3/uL Neut % (Auto) 55.6 (50-75) % Lymph % (Auto) 34.2 (25-40) % Door % (Auto) 7.1 (3-14) % Eos % (Auto) 1.7 L (2-4) % Baso % (Auto) 1.4 (0-2) % Neut # (Auto) 6200 (9883-7982) /uL Lymph # (Auto) 3800 (3492-7558) /uL Door # (Auto) 800 (0-900) /uL Eos # (Auto) 200 (0-450) /uL Baso # (Auto) 200 H (0-100) /uL ESR 35 H (0-20) MM/HR Sodium 139 (137-145) mmol/L Potassium 4.3 (3.4-5.1) mmol/L Chloride 107 (98-107) mmol/L Carbon Dioxide 29 (22-32) mmol/L BUN 24 H (7-17) mg/dL Creatinine 1.02 (0.52-1.04) mg/dL Estimated GFR 57 L (>60) mL/min BUN/Creatinine Ratio 23.5 H (6-22) Glucose 127 H (80-110) mg/dL Uric Acid 4.1 (2.5-6.2) mg/dL Calcium 9.2 (8.4-10.2) mg/dL Total Bilirubin 0.5 (0.2-1.3) mg/dL AST 20 (14-36) IU/L ALT 17 (<35) IU/L Alkaline Phosphatase 80 (38-126) U/L C-Reactive Protein < 0.5 (<1.0) mg/dL Total Protein 7.2 (6.3-8.2) g/dL Albumin 4.2 (3.5-5.0) g/dL Globulin 3.0 (1.7-4.1) g/dL Albumin/Globulin Ratio 1.4 (1.0-2.8) [facility] Narrative Medical decision making narrative: Patient brought here by ambulance from assisted living facility. Complaints 4 days of right knee pain and swelling. History of total right knee back in 2011. Has been doing well. Uses a walker. Has had swelling to the right knee. No known injury. Patient is diabetic. No fever chills. Patient also complains of bilateral inguinal crease yeast infection which she has had before and improved with nystatin cream. She has currently not on any antifungal cream. Examination of the skin. At the inguinal creases there is erythema but no vesicles or discharge. Consistent with Sue infection Examination of the right knee there is tenderness and edema to the anterior knee. No erythema. Grossly symmetric to the left knee. No discoloration to the knee. Able to actively flex to almost 90? but able to fully extend the knee. Foot warm soft pink strong pedal pulse brisk cap refills light touch intact to foot and toes. After history and exam Percocet Zofran x-ray right knee [facility] Medical records reviewed: No recent visit for this complaint Differential considered: Includes but not limited to septic joint, knee effusion, hardware failure of the knee, yeast infection of the inguinal crease Lab Test results independently reviewed as above. Pertinent findings: Independently reviewed EKG Imaging studies independently reviewed: Consultations: Treatments: Re-evaluations: Discussion: Diagnosis: <Gladys Crow MD - Last Filed: 01/22/24 02:54> Lab Data Labs: Lab Results 01/21/24 Range/Units 18:59 WBC 11.1 H (4.5-11.0) X10^3/uL RBC 4.02 (4.0-5.2) X10^6/uL Hgb 12.4 (12.0-16.0) g/dL Hct 36.5 (36-46) % MCV 90.9 (80-100) fL MCH 30.9 (26-34) PG MCHC 34.0 (30-36) % RDW 13.3 (11.6-14.8) % Plt Count 264 (150-400) X10^3/uL Neut % (Auto) 55.6 (50-75) % Lymph % (Auto) 34.2 (25-40) % Door % (Auto) 7.1 (3-14) % Eos % (Auto) 1.7 L (2-4) % Baso % (Auto) 1.4 (0-2) % Neut # (Auto) 6200 (1431-3420) /uL Lymph # (Auto) 3800 (4972-2939) /uL Door # (Auto) 800 (0-900) /uL Eos # (Auto) 200 (0-450) /uL Baso # (Auto) 200 H (0-100) /uL ESR 35 H (0-20) MM/HR Sodium 139 (137-145) mmol/L Potassium 4.3 (3.4-5.1) mmol/L Chloride 107 (98-107) mmol/L Carbon Dioxide 29 (22-32) mmol/L BUN 24 H (7-17) mg/dL Creatinine 1.02 (0.52-1.04) mg/dL Estimated GFR 57 L (>60) mL/min BUN/Creatinine Ratio 23.5 H (6-22) Glucose 127 H (80-110) mg/dL Uric Acid 4.1 (2.5-6.2) mg/dL Calcium 9.2 (8.4-10.2) mg/dL Total Bilirubin 0.5 (0.2-1.3) mg/dL AST 20 (14-36) IU/L ALT 17 (<35) IU/L Alkaline Phosphatase 80 (38-126) U/L C-Reactive Protein < 0.5 (<1.0) mg/dL Total Protein 7.2 (6.3-8.2) g/dL Albumin 4.2 (3.5-5.0) g/dL Globulin 3.0 (1.7-4.1) g/dL Albumin/Globulin Ratio 1.4 (1.0-2.8) MDM Narrative Medical decision making narrative: Patient brought here by ambulance from assisted living facility. Complaints 4 days of right knee pain and swelling. History of total right knee back in 2011. Has been doing well. Uses a walker. Has had swelling to the right knee. No known injury. Patient is diabetic. No fever chills. Patient also complains of bilateral inguinal crease yeast infection which she has had before and improved with nystatin cream. She has currently not on any antifungal cream. Examination of the skin. At the inguinal creases there is erythema but no vesicles or discharge. Consistent with Sue infection Examination of the right knee there is tenderness and and some swelling along the proximal tibia not extending into the knee joint is area is somewhat tender to the touch.. No erythema or warmth. Grossly symmetric to the left knee. No discoloration to the knee. Able to actively flex to almost 90? but able to fully extend the knee. Foot warm soft pink strong pedal pulse brisk cap Medical records reviewed: Hospital discharge from December of 2023 is reviewed. Parainfluenza related respiratory failure with progressive weakness and generalized fatigue. Differential considered: Includes but not limited to septic joint, knee effusion, hardware failure of the knee, yeast infection of the inguinal crease Lab Test results independently reviewed as above. Pertinent findings: CBC shows mild leukocytosis without left shift Chemistries show no significant abnormalities. C-reactive protein is low Sed rate is minimally elevated at 35 Uric acid is within normal limits Imaging studies independently reviewed: X-ray shows knee replacement, no obvious abnormalities in the proximal tibia to suggest periprosthetic fracture loosening or infection. Minimal to no joint effusion is appreciated Treatments: Oral dexamethasone Re-evaluations: After 2 Percocet patient's pain was almost entirely resolved Discussion: 78-year-old woman with right knee pain without evidence of significant effusion, trauma, infection, I do not suspect a septic joint, do not suspect gout. I do suspect that this is irritated secondary to arthritis and likely minor irritation/trauma. Encouraged her to continue to to use her walker. She was given a single dose of dexamethasone in the emergency department to help with inflammation. In the past series of made her blood sugars rise to the point that she is needed to come back to the emergency department. As the Percocet was so effective, I am going to give her an additional 8 tablets to use over the next 4 days along with instructions on preventing constipation. We will recommend she follow up with Orthopedics regarding her recurrent in periprosthetic right knee pain. Discharge Plan Departure Patient Disposition: Home Clinical Impression: Acute pain of right knee Instructions: DI for Knee Pain Activity Restrictions/Additional Instructions: Thank you for coming in today I suspect that you are knee pain is related to arthritis more than anything else. Based on your exam and the blood work done today I do not suspect that there is infection in the joint or around the joint. There was no dramatic collection of fluid in the joint. There is no sign of cellulitis or other complications and no fractures around your knee replacement. In the emergency department you were given a single dose of dexamethasone to help with inflammatory pain. This may make your blood sugars higher over the next couple of days. You responded very well to Percocet. I am going to give you a number of pills that you may use at home. This is Tylenol plus oxycodone, it is a narcotic and can increase your risk for falls and will make you constipated. Please make sure that you are using this very sparingly, you are consistently using your walker and make sure that you are taking both your MiraLax and your docusate to prevent significant constipation With your knee pain, the next step in your workup may be a primary care provider referring you to orthopedics and perhaps even physical therapy. If you find that you are getting worse or develop any new symptoms, please feel free to return to the emergency department for further evaluation. Prescriptions: No Action duloxetine 20 mg capsule,delayed release(DR/EC) 20 mg PO DAILY quetiapine 25 mg tablet 25 mg PO BEDTIME propranolol 20 mg tablet 20 mg PO BEDTIME rosuvastatin 40 mg tablet 40 mg PO DAILY Patient Comments: All the medicines I'm taking in this hospital is in my record. insulin glargine [Lantus Solostar U-100 Insulin] 100 unit/mL (3 mL) insulin pen 34 unit SUBCUT 2100 potassium chloride 10 mEq tablet extended release 10 meq PO Q OTHER DAY amlodipine 10 mg tablet 10 mg PO DAILY fluoxetine 20 mg tablet 40 mg PO DAILY diclofenac sodium 75 mg tablet,delayed release (DR/EC) 75 mg PO BID clobetasol 0.05 % ointment 1 applic topical DAILY glipizide 5 mg tablet 5 mg PO BID meloxicam 7.5 mg tablet See Rx Instructions .ROUTE .COMPLEX Qty: 30 2RF Rx Instructions: 1-2 tabs Po daily as needed for knee pain Referrals: Monie Santamaria ARNP, RN [Primary Care Provider] - Stand Alone Forms: Patient Portal/API
--- NOTE | 2024-01-21 16:53 | DI.RAD.S_ITS ---
PROCEDURE: XR KNEE RT 3V INDICATIONS: pain/swelling TECHNIQUE: 3 views of the knee were acquired. COMPARISON: [facility], CR, XR KNEE RT 3V, 12/04/2023, 20:49. [facility], CR, XR KNEE LT 3V, 12/21/2022, 11:28. FINDINGS: Bones: Arthroplasty hardware is in similar position and appearance compared to 12/04/2023. Soft tissues: No suspicious calcifications. Small joint effusion. There may be soft tissue swelling. IMPRESSION: Similar appearance of the osseous structures and knee arthroplasty compared to prior radiograph. Possible small joint effusion and soft tissue swelling. If there is further concern, consider cross-sectional imaging or nuclear medicine bone scan. Dictated by: Ernie Cruz M.D. on 01/21/2024 at 18:32 Approved by: Ernie Cruz M.D. on 01/21/2024 at 18:33
[2024-01-21] MEDS: ONDANSETRON 4 MG ODT SL (17:00)
[2024-01-21] MEDS: OXYCODONE/ACETAMINOPHEN 5/325 TABLET 2 TAB PO (17:06)
[2024-01-21 19:08] LABS: Add Manual Diff / Slide Review NO; Basophils Absolute Auto 200 /uL (0-100); Basophils Percent Auto 1.4 % (0-2); Eosinophils Absolute Auto 200 /uL (0-450); Eosinophils Percent Auto 1.7 % (2-4); Hematocrit 36.5 % (36-46); Hemoglobin 12.4 g/dL (12.0-16.0); Lymphocytes Absolute Auto 3800 /uL (1100-4500); Lymphocytes Percent Auto 34.2 % (25-40); Mean Corpuscular Hemoglobin 30.9 PG (26-34); Mean Corpuscular Volume 90.9 fL (80-100); Monocytes Absolute Auto 800 /uL (0-900); Monocytes Percent Auto 7.1 % (3-14); Neutrophils Absolute Auto 6200 /uL (1500-7000); Neutrophils Percent Auto 55.6 % (50-75); Platelet Count 264 X10^3/uL (150-400); Red Blood Cell Count 4.02 X10^6/uL (4.0-5.2); Red Cell Distribution Width 13.3 % (11.6-14.8); White Blood Cell Count 11.1 X10^3/uL (4.5-11.0)
[2024-01-21] MEDS: dexAMETHasone 4 MG TABLET 12 MG PO (19:17)
[2024-01-21 19:21] LABS: Alanine Aminotransferase 17 IU/L (<35); Albumin 4.2 g/dL (3.5-5.0); Albumin Globulin Ratio 1.4 (1.0-2.8); Alkaline Phosphatase 80 U/L (38-126); Aspartate Aminotransferase 20 IU/L (14-36); BUN Creatinine Ratio 23.5 (6-22); Bilirubin Total 0.5 mg/dL (0.2-1.3); Blood Urea Nitrogen 24 mg/dL (7-17); Calcium 9.2 mg/dL (8.4-10.2); Carbon Dioxide 29 mmol/L (22-32); Chloride 107 mmol/L (98-107); Estimated Glomerular Filt Rate 57 mL/min (>60); Glucose 127 mg/dL (80-110); HEMOLYSIS 21 (0-50); Potassium 4.3 mmol/L (3.4-5.1); Sodium 139 mmol/L (137-145); Total Protein 7.2 g/dL (6.3-8.2); Uric Acid 4.1 mg/dL (2.5-6.2)
[2024-01-21 19:31] LABS: Erythrocyte Sedimentation Rate 35 MM/HR (0-20)
[2024-01-21 19:36] LABS: C-Reactive Protein Quant < 0.5 mg/dL (<1.0)
[2024-01-21] MEDS: OXYCODONE/ACETAMINOPHEN 5/325 TABLET 1 TAB PO (20:54)
--- NOTE | 2024-01-21 21:05 | PC.NURSE ---
Pt moved to hallway from room. Pt given additional dosing of pain medication.
== END 2024-01-21 22:36 | disposition home or self-care (01) ==
PROVIDERS: Emergency Provider Emergency Medicine; PCP Nurse Practitioner Family
DX: M25.561 Pain in right knee (principal); B37.2 Candidiasis of skin and nail; Z79.899 Other long term (current) drug therapy
CPT/HCPCS: 36415; 73562; 80053; 84550; 85025; 85651; 86140; 99283; 99284

== ENCOUNTER → 2024-01-30 08:51 | Outpatient (CLI) | payer MEDICARE, SELFPAY ==
[2023-10-11 02:16] VITALS: BMI 41.8
--- NOTE | 2024-01-30 08:52 | DI.MRI.S_ITS ---
PROCEDURE: MR HEAD/BRAIN WO CON INDICATIONS: DISORIENTATION, HX OF TIA TECHNIQUE: Non-contrast axial T1 spin echo, axial T2 fast spin echo, sagittal and axial FLAIR, coronal T2 fast spin echo, axial gradient echo, axial diffusion and ADC through the brain. COMPARISON: [facility], CT, CT HEAD/BRAIN WO CON, 06/14/2023, 21:33. FINDINGS: Image quality: Excellent. CSF spaces: Ventricles appear symmetric in size and shape. Basal cisterns are patent. No extra-axial fluid collections. Brain: No intracranial bleeds or mass effects. There is cerebral volume loss for age. There are periventricular and deep white matter chronic small vessel ischemic changes, including within the brainstem. Diffusion-weighted images show no acute infarct. No chronic ischemic insults. Normal intravascular flow voids are present. Skull and face: Calvarial bone marrow is normal in signal. Bilateral lens replacements. Otherwise, the orbits are unremarkable. Sinuses: Air-fluid level within the left maxillary sinus. Otherwise, the paranasal sinuses are clear. Small bilateral mastoid effusions. IMPRESSION: No cause for patient's symptoms is identified. No acute intracranial abnormalities. Age-related global volume loss and chronic microvascular ischemic changes. Dictated by: Jerome Eugene M.D. on 01/30/2024 at 11:01 Approved by: Jerome Eugene M.D. on 01/30/2024 at 11:27
[2024-01-30 11:34] LABS: Add Manual Diff / Slide Review NO; Basophils Absolute Auto 0 /uL (0-100); Basophils Percent Auto 0.3 % (0-2); Eosinophils Absolute Auto 200 /uL (0-450); Eosinophils Percent Auto 1.5 % (2-4); Hematocrit 37.9 % (36-46); Hemoglobin 12.7 g/dL (12.0-16.0); Lymphocytes Absolute Auto 3300 /uL (1100-4500); Lymphocytes Percent Auto 27.9 % (25-40); Mean Corpuscular HGB Conc 33.5 % (30-36); Mean Corpuscular Hemoglobin 30.5 PG (26-34); Mean Corpuscular Volume 90.8 fL (80-100); Monocytes Absolute Auto 600 /uL (0-900); Monocytes Percent Auto 5.5 % (3-14); Neutrophils Absolute Auto 7600 /uL (1500-7000); Neutrophils Percent Auto 64.8 % (50-75); Platelet Count 278 X10^3/uL (150-400); Red Blood Cell Count 4.17 X10^6/uL (4.0-5.2); Red Cell Distribution Width 13.5 % (11.6-14.8); White Blood Cell Count 11.7 X10^3/uL (4.5-11.0)
[2024-01-30 11:58] LABS: Erythrocyte Sedimentation Rate 30 MM/HR (0-20)
[2024-01-30 12:20] LABS: Alanine Aminotransferase 16 IU/L (<35); Albumin 4.1 g/dL (3.5-5.0); Albumin Globulin Ratio 1.5 (1.0-2.8); Alkaline Phosphatase 85 U/L (38-126); Aspartate Aminotransferase 20 IU/L (14-36); BUN Creatinine Ratio 25.2 (6-22); Bilirubin Total 0.5 mg/dL (0.2-1.3); Blood Urea Nitrogen 26 mg/dL (7-17); C-Reactive Protein Quant < 0.5 mg/dL (<1.0); Calcium 9.3 mg/dL (8.4-10.2); Carbon Dioxide 24 mmol/L (22-32); Chloride 104 mmol/L (98-107); Estimated Glomerular Filt Rate 56 mL/min (>60); Globulin 2.7 g/dL (1.7-4.1); Glucose 174 mg/dL (80-110); HEMOLYSIS < 15 (0-50); Potassium 4.9 mmol/L (3.4-5.1); Sodium 136 mmol/L (137-145); Total Protein 6.8 g/dL (6.3-8.2)
== END ==
PROVIDERS: PCP Nurse Practitioner Family; Referring Provider Nurse Practitioner Family; Visit Provider Nurse Practitioner Family
DX: R41.0 Disorientation, unspecified (principal); Z86.73 Personal history of transient ischemic attack (TIA), and cerebral infarction without residual deficits; D72.829 Elevated white blood cell count, unspecified; M25.569 Pain in unspecified knee; E11.9 Type 2 diabetes mellitus without complications
CPT/HCPCS: 36415; 70551; 80053; 85025; 85651; 86140

== ENCOUNTER → 2024-02-04 19:01 | Outpatient (CLI) | payer MEDICARE, SELFPAY ==
[2023-10-11 02:16] VITALS: BMI 41.8
--- NOTE | 2024-02-04 19:04 | DI.MRI.S_ITS ---
PROCEDURE: MR KNEE RT WO CON INDICATIONS: BILATERAL KNEE PAIN TECHNIQUE: Noncontrast sagittal PD fast spin echo and T2 fast spin echo with fat saturation, sagittal 3-D FLASH with fat saturation; coronal T1 spin echo and PD fast spin echo with fat saturation, and axial PD fast spin echo with fat saturation through the knee. COMPARISON: [facility], CR, XR KNEE RT 3V, 01/21/2024, 17:07. FINDINGS: Image quality: Diagnostic. Significant susceptibility artifacts are noted from right knee prosthesis. Menisci: Patient is status post right total knee arthroplasty. Cruciate ligaments: The anterior and posterior cruciate ligaments are not well seen due to significant susceptibility artifacts. No gross full-thickness cruciate ligament rupture. Medial structures: The medial collateral ligament appears intact. Visualized portions of the pes anserinus tendons appear normal. No abnormal bursal fluid. Lateral structures: The lateral collateral ligament, long and short heads of the biceps femoris tendon appear intact. Iliotibial band appears normal. Anterior structures: The quadriceps and patellar tendons appear intact. Patellar alignment is normal. Bones and cartilage: Susceptibility artifacts are noted. No gross marrow edema. No acute displaced fracture. No dislocation. Joint space: There is physiologic knee joint fluid. No Pickens's cyst. Normal appearing synovial plicae are incidentally noted. IMPRESSION: 1. Prior right total knee arthroplasty. Significant susceptibility artifacts are noted from knee prosthesis. No gross marrow edema. No fracture or dislocation. No significant joint effusion or intra-articular loose bodies. 2. Limited evaluation of cruciate ligaments. No gross full-thickness cruciate ligament rupture. 3. Medial and lateral collateral ligaments are grossly intact. 4. Distal quadriceps tendon and patellar tendon are grossly intact. Dictated by: Nicola Benitez M.D. on 02/05/2024 at 9:42 Approved by: Nicola Benitez M.D. on 02/05/2024 at 10:32
== END ==
PROVIDERS: PCP Nurse Practitioner Family; Referring Provider Nurse Practitioner Family; Visit Provider Nurse Practitioner Family
DX: M25.561 Pain in right knee (principal); M25.562 Pain in left knee; Z96.651 Presence of right artificial knee joint
CPT/HCPCS: 73721

== ENCOUNTER → 2024-03-06 11:58 | Outpatient (CLI) | payer MEDICARE, MEDICAID, SELFPAY ==
[2023-10-11 02:16] VITALS: BMI 41.8
--- NOTE | 2024-03-06 12:01 | DI.RAD.S_ITS ---
PROCEDURE: XR KNEE RT 3V INDICATIONS: KNEE PAIN TECHNIQUE: 3 views of the knee were acquired. COMPARISON: [facility], , XR KNEE RT 3V, 01/21/2024, 17:07. FINDINGS: Bones: Total knee prosthesis in good position. No hardware failure or loosening. Soft tissues: No joint effusion. No suspicious soft tissue calcifications. IMPRESSION: Total knee prosthesis in good position Approved by: aJrad Chavez M.D. on 03/06/2024 at 19:47
--- NOTE | 2024-03-06 12:01 | DI.RAD.S_ITS ---
PROCEDURE: XR KNEE LT 3V INDICATIONS: KNEE PAIN TECHNIQUE: 3 views of the knee were acquired. COMPARISON: [facility], CR, XR KNEE RT 3V, 01/21/2024, 17:07. FINDINGS: Bones: No fractures or dislocations. No suspicious bony lesions. Severe patellofemoral joint space narrowing marginal osteophyte. Moderate medial lateral compartmental joint space narrowing. Normal bone mineralization. Soft tissues: No joint effusion. No suspicious soft tissue calcifications. IMPRESSION: Moderate to severe tricompartmental osteoarthritis Approved by: Jarad Chavez M.D. on 03/06/2024 at 19:46
== END ==
PROVIDERS: PCP Nurse Practitioner Family; Referring Provider Nurse Practitioner Family; Visit Provider Nurse Practitioner Family
DX: M17.12 Unilateral primary osteoarthritis, left knee (principal); M25.561 Pain in right knee; M25.562 Pain in left knee; Z96.651 Presence of right artificial knee joint
CPT/HCPCS: 73562

== ENCOUNTER 2024-03-28 16:34 | Emergency (ER) | payer MEDICARE, MEDICAID, SELFPAY ==
[2023-10-11 02:16] VITALS: BMI 41.8
[2024-03-28] VITALS (9 sets, daily range): BP systolic 133–165; BP diastolic 65–75; PULSE 70–77; RESP 16; TEMP 37.1; O2SAT 92–99; BMI 41.0
--- NOTE | 2024-03-28 17:22 | DI.RAD.S_ITS ---
PROCEDURE: XR KNEE RT 1TO2V INDICATIONS: fall, felt like right knee and hip 'gave out' TECHNIQUE: 2 views of the knee were acquired. COMPARISON: [facility], [facility], XR KNEE RT 3V, 03/06/2024, 12:27. [facility], CR, XR KNEE RT 3V, 01/21/2024, 17:07. FINDINGS: Bones: Knee arthroplasty in place. No acute displaced fracture. Arthroplasty components appears similar. Soft tissues: No suspicious calcifications IMPRESSION: No acute radiographic changes. Knee arthroplasty appears similar to prior. If there is high concern for occult injury, consider repeat radiography or cross-sectional imaging. Dictated by: Ernie Cruz M.D. on 03/28/2024 at 18:11 Approved by: Ernie Cruz M.D. on 03/28/2024 at 18:12
--- NOTE | 2024-03-28 17:22 | DI.RAD.S_ITS ---
PROCEDURE: XR HIP W PEL IF DONE RT 2V INDICATIONS: fall, felt like right knee and hip 'gave out' TECHNIQUE: 2 views of the hip were acquired. COMPARISON: None. FINDINGS: Bones: Moderate to severe right and [id number] left hip arthrosis. There is no acute displaced fracture or dislocation. Soft tissues: No suspicious calcifications IMPRESSION: Right greater than left arthrosis. No acute displaced fracture identified. If there is high concern for occult injury, consider repeat radiography or cross-sectional imaging. Dictated by: Ernie Cruz M.D. on 03/28/2024 at 18:10 Approved by: Ernie Cruz M.D. on 03/28/2024 at 18:11
--- NOTE | 2024-03-28 18:07 | ED.FALL ---
HPI - Fall General Chief Complaint: Fall Stated Complaint: GLF Time Seen by Provider: 03/28/24 17:56 Source: EMS Mode of arrival: EMS History of Present Illness HPI Narrative: 78-year-old female presents by EMS from her assisted living facility for evaluation of right hip and right knee pain. Patient states that she has had 7-8 months of issues with her right knee where it we will randomly give out. States that she had a knee replacement surgery in 2011 and has had no issues with this knee until this year. She states that she has a pending orthopedic referral, but it is not for another several months and she reports being increasingly frustrated at her worsening falls. She states that no matter what she does her knee throbs and causes her to have trouble sleeping at night. Patient states that this afternoon she was walking to the bathroom when her knee gave out and she fell to the ground, landing on her right hip. Denies other injuries, denies hitting her head. Patient states that it took multiple people at her assisted living facility to help her get off the ground. Based on this fall as well as the other falls she was had a nurse at the facility recommended that she come to the ER for evaluation. Related Data Home Medications Medication Instructions Recorded Confirmed duloxetine 20 mg capsule,delayed 20 mg PO DAILY 06/15/23 10/11/23 release propranolol 20 mg tablet 20 mg PO BEDTIME 06/15/23 10/11/23 quetiapine 25 mg tablet 25 mg PO BEDTIME 06/15/23 10/11/23 rosuvastatin 40 mg tablet 40 mg PO DAILY 06/15/23 10/11/23 insulin glargine 100 unit/mL (3 34 unit SUBCUT 2100 07/05/23 10/11/23 mL) subcutaneous pen (Lantus Solostar U-100 Insulin) potassium chloride 10 mEq 10 meq PO Q OTHER DAY 07/05/23 10/11/23 tablet,extended release amlodipine 10 mg tablet 10 mg PO DAILY 09/27/23 10/11/23 clobetasol 0.05 % topical ointment 1 applic topical DAILY 09/27/23 10/11/23 diclofenac sodium 75 mg 75 mg PO BID 09/27/23 10/11/23 tablet,delayed release fluoxetine 20 mg tablet 40 mg PO DAILY 09/27/23 10/11/23 glipizide 5 mg tablet 5 mg PO BID 09/27/23 10/11/23 Previous Rx's Medication Instructions Recorded meloxicam 7.5 mg tablet See Rx Instructions .Route 12/04/23 .COMPLEX #30 tabs tramadol 50 mg tablet 50 mg PO BEDTIME #10 tabs 03/28/24 Allergies Allergy/AdvReac Type Severity Reaction Status Date / Time morphine AdvReac Nightmare Verified 01/21/24 13:41 Patient History Medical History Secondhand smoke exposure Lichen sclerosus et atrophicus Microscopic hematuria Urge incontinence Hx of migraine headaches History of depression History of chronic urinary tract infection History of arthritis Peripheral neuropathy Depression Hyperlipidemia Fibromyalgia Hypertension Lower leg edema Diabetes Surgical History Hx of abdominal hysterectomy Hx of breast biopsy Hx of total knee replacement Hx of cholecystectomy Hx of appendectomy Family History Mother Cancer CVA (cerebral vascular accident) Hyperlipidemia Hypertension Father Hypertension Hyperlipidemia CAD (coronary artery disease) Sister Hyperlipidemia Hypertension Diabetes mellitus Multiple kidney stones Migraines Brother Hyperlipidemia Hypertension Migraines Eczema Social History marital status: number of children: 4 household members: none lives independently: Yes Smoking Status: Never smoker alcohol intake: current caffeine: Yes Type(s) of exercise: walking frequency: 3-4 times per week duration: 15-30 minutes/day Smoking Status: Never smoker alcohol intake frequency: holidays/special occasions only Substance Use Type: does not use Exam Initial Vital Signs Initial Vital Signs: Vital Signs Pulse Rate 76 03/28/24 16:38 Blood Pressure 162/71 H 03/28/24 16:38 Pulse Oximetry 95 03/28/24 16:38 Const: Awake, alert, frail, appears chronically unwell Cardiac: regular rate, regular rhythm RESP: unlabored, clear bilaterally, no wheezing MSK: No deformity, decreased range of motion secondary to pain Skin: Warm, Dry, intact, no rashes Neuro: AO x3, CN II-XII grossly intact, moves all extremities Course Orders Ordered: Discontinued Medications Oxycodone HCl (Oxycodone Ir 5 Mg Tablet) 5 mg PO NOW ONE Stop: 03/28/24 18:25 Last Admin: 03/28/24 18:35 Dose: 5 mg Documented By: NNANETTE Vital Signs Vital signs: Vital Signs - 8 hr 03/28/24 16:38 03/28/24 16:38 03/28/24 16:42 Temperature 98.7 F Pulse Rate 76 72 Respiratory Rate 16 Blood Pressure 162/71 H 162/71 H Pulse Oximetry 95 99 Oxygen Delivery Method Room Air 03/28/24 17:00 03/28/24 17:00 03/28/24 17:30 Temperature Pulse Rate 77 75 Respiratory Rate Blood Pressure 147/65 H Pulse Oximetry 98 98 Oxygen Delivery Method 03/28/24 17:31 03/28/24 17:31 03/28/24 18:03 Temperature Pulse Rate 75 73 Respiratory Rate Blood Pressure 133/68 Pulse Oximetry 97 92 Oxygen Delivery Method 03/28/24 18:06 03/28/24 18:06 03/28/24 18:30 Temperature Pulse Rate 70 73 Respiratory Rate Blood Pressure 148/67 H Pulse Oximetry 96 94 Oxygen Delivery Method 03/28/24 18:30 03/28/24 19:00 03/28/24 19:00 Temperature Pulse Rate 75 Respiratory Rate Blood Pressure 165/69 H 158/75 H Pulse Oximetry 94 Oxygen Delivery Method MDM - Fall Differential Diagnosis Differential diagnosis: Likely other (knee fracture, hip fracture, hip contusion) Imaging Data Extremity x-ray #1: Radiologist's Impression: PROCEDURE: XR HIP W PEL IF DONE RT 2V INDICATIONS: fall, felt like right knee and hip 'gave out' TECHNIQUE: 2 views of the hip were acquired. COMPARISON: None. FINDINGS: Bones: Moderate to severe right and [id number] left hip arthrosis. There is no acute displaced fracture or dislocation. Soft tissues: No suspicious calcifications IMPRESSION: Right greater than left arthrosis. No acute displaced fracture identified. If there is high concern for occult injury, consider repeat radiography or cross-sectional imaging. Dictated by: Ernie Cruz M.D. on 03/28/2024 at 18:10 Approved by: Ernie Cruz M.D. on 03/28/2024 at 18:11 Extremity x-ray #2: Radiologist's Impression: PROCEDURE: XR KNEE RT 1TO2V INDICATIONS: fall, felt like right knee and hip 'gave out' TECHNIQUE: 2 views of the knee were acquired. COMPARISON: [facility], CR, XR KNEE RT 3V, 03/06/2024, 12:27. [facility], CR, XR KNEE RT 3V, 01/21/2024, 17:07. FINDINGS: Bones: Knee arthroplasty in place. No acute displaced fracture. Arthroplasty components appears similar. Soft tissues: No suspicious calcifications IMPRESSION: No acute radiographic changes. Knee arthroplasty appears similar to prior. If there is high concern for occult injury, consider repeat radiography or cross-sectional imaging. Dictated by: Ernie Cruz M.D. on 03/28/2024 at 18:11 Approved by: Ernie Cruz M.D. on 03/28/2024 at 18:12 [facility] Narrative Medical decision making narrative: Ground level fall with right knee and hip pain. No obvious leg shortening, patient neurovascularly intact, range of motion is somewhat limited due to pain. Patient states that she was prescribed a knee brace in the past but no pharmacy in the area has 1 in her size. X-ray imaging negative for acute findings. Patient placed in Rosendo wrap bandage for some support, we do not have any braces other than complete knee immobilizers, which would likely not be beneficial to the patient at this time. She was given a short course of pain medications that she may take to help her sleep at night. She was given a local orthopedic referral number to see if this could potentially expedite her specialists follow up. Discharge Plan Departure Patient Disposition: Home Clinical Impression: Knee joint pain, Acute hip pain Instructions: DI for Knee Pain, DI for Hip Pain Activity Restrictions/Additional Instructions: Your x-ray imaging today showed arthritic changes of your hip, but no fractures, dislocations, or disruption of your hardware. Continue to use your walker, you may use the Rosendo wrap bandage as needed to help stabilize her knee joint. A short course of pain medications has been sent to your pharmacy, but be careful with this medication as it may cause drowsiness and put you at increased risk of falling. Follow up with Orthopedic surgery. A referral number has been provided. Prescriptions: New tramadol 50 mg tablet 50 mg PO BEDTIME Qty: 10 0RF No Action duloxetine 20 mg capsule,delayed release(DR/EC) 20 mg PO DAILY quetiapine 25 mg tablet 25 mg PO BEDTIME propranolol 20 mg tablet 20 mg PO BEDTIME rosuvastatin 40 mg tablet 40 mg PO DAILY Patient Comments: All the medicines I'm taking in this hospital is in my record. insulin glargine [Lantus Solostar U-100 Insulin] 100 unit/mL (3 mL) insulin pen 34 unit SUBCUT 2100 potassium chloride 10 mEq tablet extended release 10 meq PO Q OTHER DAY amlodipine 10 mg tablet 10 mg PO DAILY fluoxetine 20 mg tablet 40 mg PO DAILY diclofenac sodium 75 mg tablet,delayed release (DR/EC) 75 mg PO BID clobetasol 0.05 % ointment 1 applic topical DAILY glipizide 5 mg tablet 5 mg PO BID meloxicam 7.5 mg tablet See Rx Instructions .ROUTE .COMPLEX Qty: 30 2RF Rx Instructions: 1-2 tabs Po daily as needed for knee pain Referrals: Sherrie Diaz MD [Physician] - Monie Santamaria ARNP RN [Primary Care Provider] - Stand Alone Forms: Patient Portal/API
[2024-03-28] MEDS: OXYCODONE IR 5 MG TABLET PO (18:35)
--- NOTE | 2024-03-28 19:42 | PC.NURSE ---
Pt able to ambulate with walker to bathroom and down gallegos. Pt reports her right hip/knee pain is much better than previously. Pt provided with sandwich, jello, and sprite.
== END 2024-03-28 20:13 | disposition home or self-care (01) ==
PROVIDERS: Emergency Provider Emergency Medicine; PCP Nurse Practitioner Family
DX: M25.561 Pain in right knee (principal); M25.551 Pain in right hip; W18.30XA Fall on same level, unspecified, initial encounter; Z79.899 Other long term (current) drug therapy
CPT/HCPCS: 73502; 73560; 99283; 99284

== ENCOUNTER 2024-09-15 12:50 | Emergency (ER) | payer MEDICARE, MEDICAID, SELFPAY ==
[2023-10-11 02:16] VITALS: BMI 41.8
[2024-09-15 14:07] VITALS: BP 126/60; PULSE 75; RESP 18; TEMP 36.6; O2SAT 97; BMI 40.1
[2024-09-15 17:50] VITALS: RESP 14
--- NOTE | 2024-09-15 18:00 | PC.NURSE ---
Pt states 6 months of nausea and diarrhea. Worse the past 7 days. Pt mentions bruising on my lower calves from falling. I asked when pt had a fall. Pt states I fell on sunday and hit my head. Since the fall I have been vomiting each day. Sometimes I can keep liquid down.. No visualized injury to the right posterior head. Pt states she is having falls often and dehydrated with dizziness. Notified Provider Dung. New orders placed. . Headache 10/13 and nauseated.
--- NOTE | 2024-09-15 18:01 | DI.CT.S_ITS ---
PROCEDURE: CT HEAD/BRAIN WO CON INDICATIONS: fall TECHNIQUE: Noncontrast 4.5 mm thick angled axial sections acquired from the foramen magnum to the vertex, with coronal and sagittal reformats. For radiation dose reduction, the following was used: automated exposure control, adjustment of mA and/or kV according to patient size. COMPARISON: [facility], CT, CT HEAD/BRAIN WO CON, 06/14/2023, 21:33. FINDINGS: Image quality: Diagnostic. CSF spaces: Basal cisterns are patent. No extra-axial fluid collections. The ventricles are symmetric in size and shape. Brain: No acute intracranial hemorrhage or mass effect. There is cerebral volume loss for age, with resultant ventricular and sulcal prominence. There are periventricular and deep white matter chronic small vessel ischemic changes. There is intracranial internal carotid artery atherosclerosis. Skull and face: Calvarium and visualized facial bones appear intact, without suspicious lesions. Sinuses: Visualized sinuses and mastoids are clear. IMPRESSION: No acute intracranial pathology. Approved by: Geovanni Nichols M.D. on 09/15/2024 at 18:24
--- NOTE | 2024-09-15 18:01 | DI.CT.S_ITS ---
PROCEDURE: CT CERVICAL SPINE WO CON INDICATIONS: fall TECHNIQUE: Noncontrast 3 mm thick sections acquired from the skull base to the T4 level. Sagittal and coronal reformats were then constructed. For radiation dose reduction, the following was used: automated exposure control, adjustment of mA and/or kV according to patient size. COMPARISON: [facility], , THYROID, 12/20/2023, 13:39. FINDINGS: Image quality: Excellent. Bones: No acute fractures or dislocations. Visualized superior ribs are intact. Minimal cervical spondylosis. Soft tissues: Prevertebral soft tissues are normal in thickness. No paravertebral hematomas. No apical pneumothoraces. Enlarged heterogeneous thyroid. IMPRESSION: No acute displaced fracture or traumatic subluxation. Approved by: Geovanni Nichols M.D. on 09/15/2024 at 18:52
--- NOTE | 2024-09-15 18:25 | ED_ITS ---
HPI - Nausea/Vomiting/Diarrhea <Guero Razo PA-C - Last Filed: 09/15/24 19:32> General Chief complaint: Nausea/Vomiting/Diarrhea Stated complaint: diarrhea Time Seen by Provider: 09/15/24 17:13 Source: patient History of Present Illness HPI Narrative: 78-year-old female with past medical history diabetes, peripheral neuropathy, hyperlipidemia, hypertension, fibromyalgia, urge incontinence, chronic diarrhea presents to the ED with an acute on chronic exacerbation of the diarrhea. Patient states that she has experienced daily diarrhea over the last 5-6 months. However, her diarrhea has worsened over the last 3 days with 10-12 episodes of diarrhea daily. She also is endorsing nausea and vomiting. Patient denies fever, chills, chest pain, shortness of breath, abdominal pain, dysuria, lightheadedness, dizziness, syncope. Patient was seen by her PCP Dr. Elias on 09/03/2024, multiple lab and stool studies were ordered. However, patient has not been able to obtain the tests. Patient also endorses a fall 4 days ago with a head strike and no loss of consciousness. Patient is not on blood thinners. Patient lives in an assisted facility at [facility]. Patient called her PCP's office today, they recommended that she go to the ED for further evaluation. Related Data Home Medications Medication Instructions Recorded Confirmed duloxetine 20 mg capsule,delayed 20 mg PO DAILY 06/15/23 09/03/24 release propranolol 20 mg tablet 20 mg PO BEDTIME 06/15/23 09/03/24 rosuvastatin 40 mg tablet 40 mg PO DAILY 06/15/23 09/03/24 potassium chloride 10 mEq 10 meq PO Q OTHER DAY 07/05/23 09/03/24 tablet,extended release amlodipine 10 mg tablet 10 mg PO DAILY 09/27/23 09/03/24 clobetasol 0.05 % topical ointment 1 applic topical DAILY 09/27/23 09/03/24 diclofenac sodium 75 mg 75 mg PO BID 09/27/23 09/03/24 tablet,delayed release fluoxetine 20 mg tablet 40 mg PO DAILY 09/27/23 09/03/24 PNV #[id number] acid-omega3 1 cap PO DAILY 09/03/24 09/03/24 acetaminophen 500 mg tablet 500 mg PO Q6H PRN 09/03/24 09/03/24 albuterol sulfate 90 mcg/actuation 1 - 2 puff inhalation Q4H PRN 09/03/24 09/03/24 aerosol inhaler dyspnea aspirin 81 mg tablet,delayed 81 mg PO DAILY 09/03/24 09/03/24 release buspirone 5 mg tablet 5 mg PO BID 09/03/24 09/03/24 codeine 10 mg-guaifenesin 100 mg/5 10 ml PO Q4-6H PRN 09/03/24 09/03/24 mL oral liquid fluticasone 250 mcg-salmeterol 50 1 inh inhalation BID 09/03/24 09/03/24 mcg/dose blistr powdr for inhalation (Wixela Inhub) glipizide 10 mg tablet 10 mg PO BID 09/03/24 09/03/24 hydrocodone 5 mg-acetaminophen 325 1 tab PO TID PRN 09/03/24 09/03/24 mg tablet insulin glargine 100 unit/mL (3 10 unit SUBCUT 2100 09/03/24 09/03/24 mL) subcutaneous pen (Lantus Solostar U-100 Insulin) ipratropium 0.5 mg-albuterol 3 mg 3 ml inhalation Q6H PRN 09/03/24 09/03/24 (2.5 mg base)/3 mL nebulization soln ketoconazole 2 % shampoo 1 applic topical 2XW PRN 09/03/24 09/03/24 ketoconazole 2 % topical cream 1 applic topical DAILY PRN 09/03/24 09/03/24 lidocaine 4 % topical patch 1 patch topical DAILY PRN 09/03/24 09/03/24 (Aspercreme (lidocaine)) lidocaine HCl 4 % topical cream 1 applic topical BID PRN 09/03/24 09/03/24 (Aspercreme (lidocaine HCl)) lisinopril 40 mg tablet 40 mg PO DAILY 09/03/24 09/03/24 magnesium oxide 400 mg PO DAILY PRN 09/03/24 09/03/24 metformin 500 mg tablet,extended 1,000 mg PO BID 09/03/24 09/03/24 release 24 hr methocarbamol 500 mg tablet 500 mg PO BID PRN 09/03/24 09/03/24 quetiapine 50 mg tablet 50 mg PO BEDTIME 09/03/24 09/03/24 Previous Rx's Medication Instructions Recorded meloxicam 7.5 mg tablet See Rx Instructions .Route 12/04/23 .COMPLEX #30 tabs blood-glucose meter,continuous #1 ea 09/03/24 Allergies Allergy/AdvReac Type Severity Reaction Status Date / Time morphine AdvReac Nightmare Verified 09/03/24 12:00 Review of Systems <Guero Razo PA-C - Last Filed: 09/15/24 19:32> Constitutional Constitutional: Denies chills, Denies fatigue, Denies fever(s), Reports frequent falls, Denies lethargy and Denies weakness Eyes Eyes: Denies change in vision, Denies eye discharge, Denies irritation and Denies loss of vision ENT Ears, Nose, Mouth, and Throat: Denies change in voice, Denies dizziness, Denies neck pain, Denies sore throat and Denies throat swelling Cardiovascular Cardiovascular: Denies chest pain, Denies irregular heart rhythm, Denies lightheadedness, Denies palpitations, Denies dyspnea, Denies dyspnea on exertion and Denies orthopnea Respiratory Respiratory: Denies cough, Denies dyspnea, Denies dyspnea on exertion and Denies wheezing Gastrointestinal Gastrointestinal: Denies abdominal pain, Denies change in bowel habits, Reports diarrhea, Reports nausea and Reports vomiting Genitourinary Comments: Urge incontinence Musculoskeletal Musculoskeletal: Denies neck pain and Denies numbness Integumentary/Breasts Skin/Breast: Denies pruritus, Denies erythema, Denies rash and Denies wounds Neurologic Neurologic: Denies behavioral changes, Denies confusion, Denies dizziness, Reports frequent falls, Denies loss of vision, Denies numbness and Denies weakness Psychiatric Psychiatric: Denies anxiety, Denies behavioral changes, Denies confusion, Denies depression, Denies homicidal ideation and Denies suicidal ideation Endocrine Endocrine: Denies fatigue, Denies flushing and Denies palpitations Hematologic/Lymphatic Hematologic/Lymphatic: Denies easy bruising Allergic/Immunologic Allergic/Immunologic: Denies urticaria, Denies throat swelling and Denies wheezing Patient History <Guero Razo PA-C - Last Filed: 09/15/24 19:32> Medical History (Updated 09/15/24 @ 20:27 by Marie Pak DO) Fatigue Sepsis Dyspnea on exertion Acute reaction to situational stress Unintentional weight loss Nausea & vomiting Secondhand smoke exposure Lichen sclerosus et atrophicus Microscopic hematuria Urge incontinence Hx of migraine headaches History of depression History of chronic urinary tract infection History of arthritis Peripheral neuropathy Depression Hyperlipidemia Fibromyalgia Hypertension Lower leg edema Diabetes Surgical History Hx of abdominal hysterectomy Hx of breast biopsy Hx of total knee replacement Hx of cholecystectomy Hx of appendectomy Family History Mother Cancer CVA (cerebral vascular accident) Hyperlipidemia Hypertension Father Hypertension Hyperlipidemia CAD (coronary artery disease) Sister Hyperlipidemia Hypertension Diabetes mellitus Multiple kidney stones Migraines Brother Hyperlipidemia Hypertension Migraines Eczema Social History marital status: number of children: 4 household members: none lives independently: Yes Smoking Status: Never smoker alcohol intake: current caffeine: Yes Type(s) of exercise: walking frequency: 3-4 times per week duration: 15-30 minutes/day Smoking Status: Never smoker alcohol intake frequency: holidays/special occasions only Exam <Guero Razo PA-C - Last Filed: 09/15/24 19:32> Narrative Exam Narrative: Const General:?cooperative, healthy appearing and comfortable [facility] Head:?normal to inspection Ears:?hearing grossly normal bilaterally Nose:?external nose normal Face and sinus:?normal facial exam and sinuses nontender Mouth:?oral mucosae normal Throat:?posterior oropharynx normal Eyes General:?appearance normal, both eyes and all related structures Neck Neck:?normal visual inspection and no lymphadenopathy noted Resp Effort & Inspection:?normal respiratory effort Auscultation:?clear to auscultation bilaterally Cardio Rate:?regular rate Rhythm:?regular rhythm GI Abdomen is soft, nondistended, nontender to palpation. Neuro General:?patient alert, patient awake and patient oriented x3 Initial Vital Signs Initial Vital Signs: Vital Signs Temperature 97.8 F 09/15/24 14:07 Pulse Rate 75 09/15/24 14:07 Respiratory Rate 18 09/15/24 14:07 Blood Pressure 126/60 09/15/24 14:07 Pulse Oximetry 97 09/15/24 14:07 Oxygen Delivery Method Room Air 09/15/24 14:07 <Marie Pak DO - Last Filed: 09/16/24 06:16> Initial Vital Signs Initial Vital Signs: Vital Signs Temperature 97.8 F 09/15/24 14:07 Pulse Rate 75 09/15/24 14:07 Respiratory Rate 18 09/15/24 14:07 Blood Pressure 126/60 09/15/24 14:07 Pulse Oximetry 97 09/15/24 14:07 Oxygen Delivery Method Room Air 09/15/24 14:07 Course <Guero Razo PA-C - Last Filed: 09/15/24 19:32> Orders Ordered: Discontinued Medications Sodium Chloride (Normal Saline 0.9%) 1,000 mls @ 1,000 mls/hr IV BOLUS ONE Stop: 09/15/24 19:02 Last Infusion: 09/15/24 20:08 Dose: Infused Documented By: Admin: 09/15/24 19:08 Dose: 1,000 mls/hr Documented By: CRISTIN Ondansetron HCl (Ondansetron 4 Mg/2 Ml Inj) 4 mg IV NOW PRN PRN Reason: Nausea And Vomiting Last Admin: 09/15/24 19:08 Dose: 4 mg Documented By: CRISTIN Ondansetron HCl (Ondansetron 4 Mg Odt) 4 mg SL NOW PRN PRN Reason: Nausea And Vomiting Vital Signs Vital signs: Vital Signs - 8 hr 09/15/24 14:07 09/15/24 17:50 Temperature 97.8 F Pulse Rate 75 Respiratory Rate 18 14 Blood Pressure 126/60 Pulse Oximetry 97 Oxygen Delivery Method Room Air <Marie Pak DO - Last Filed: 09/16/24 06:16> Orders Ordered: Discontinued Medications Sodium Chloride (Normal Saline 0.9%) 1,000 mls @ 1,000 mls/hr IV BOLUS ONE Stop: 09/15/24 19:02 Last Infusion: 09/15/24 20:08 Dose: Infused Documented By: Admin: 09/15/24 19:08 Dose: 1,000 mls/hr Documented By: CRISTIN Ondansetron HCl (Ondansetron 4 Mg/2 Ml Inj) 4 mg IV NOW PRN PRN Reason: Nausea And Vomiting Last Admin: 09/15/24 19:08 Dose: 4 mg Documented By: CRISTIN Ondansetron HCl (Ondansetron 4 Mg Odt) 4 mg SL NOW PRN PRN Reason: Nausea And Vomiting Vital Signs Vital signs: Vital Signs - 8 hr 09/15/24 14:07 09/15/24 17:50 Temperature 97.8 F Pulse Rate 75 Respiratory Rate 18 14 Blood Pressure 126/60 Pulse Oximetry 97 Oxygen Delivery Method Room Air MDM - Nausea/Vomiting/Diarrhea <Guero Razo PA-C - Last Filed: 09/15/24 19:32> Lab Data 09/15/24 18:30 09/15/24 18:30 Labs: Lab Results 09/15/24 09/15/24 Range/Units 18:30 18:36 WBC 12.4 H (4.5-11.0) X10^3/uL RBC 4.84 (4.0-5.2) X10^6/uL Hgb 14.5 (12.0-16.0) g/dL Hct 43.6 (36-46) % MCV 90.0 (80-100) fL MCH 30.0 (26-34) PG MCHC 33.4 (30-36) % RDW 13.7 (11.6-14.8) % Plt Count 300 (150-400) X10^3/uL Neut % (Auto) 65.2 (50-75) % Lymph % (Auto) 26.1 (25-40) % Taylor % (Auto) 5.7 (3-14) % Eos % (Auto) 2.1 (2-4) % Baso % (Auto) 0.9 (0-2) % Neut # (Auto) 8100 H (7195-9687) /uL Lymph # (Auto) 3200 (5405-2898) /uL Taylor # (Auto) 700 (0-900) /uL Eos # (Auto) 300 (0-450) /uL Baso # (Auto) 100 (0-100) /uL Sodium 138 (137-145) mmol/L Potassium 4.4 (3.4-5.1) mmol/L Chloride 100 (98-107) mmol/L Carbon Dioxide 29 (22-32) mmol/L BUN 25 H (7-17) mg/dL Creatinine 1.02 (0.52-1.04) mg/dL Estimated GFR 57 L (>60) mL/min BUN/Creatinine Ratio 24.5 H (6-22) Glucose 210 H (80-110) mg/dL Hemoglobin A1c 10.0 H (4.0-6.0) % Calcium 10.1 (8.4-10.2) mg/dL Total Bilirubin 0.7 (0.2-1.3) mg/dL AST 29 (14-36) IU/L ALT 28 (<35) IU/L Alkaline Phosphatase 89 (38-126) U/L Total Protein 7.9 (6.3-8.2) g/dL Albumin 4.4 (3.5-5.0) g/dL Globulin 3.5 (1.7-4.1) g/dL Albumin/Globulin Ratio 1.3 (1.0-2.8) MDM Narrative Medical decision making narrative: 78-year-old female with past medical history diabetes, peripheral neuropathy, hyperlipidemia, hypertension, fibromyalgia, urge incontinence, chronic diarrhea presents to the ED with an acute on chronic exacerbation of the diarrhea. Concern for C diff colitis versus gastroenteritis versus chronic diarrhea versus dehydration versus electrolyte derangements versus intracranial hemorrhage versus UTI versus other. Will obtain CT head, CT C-spine, CT abdomen pelvis, labs, UA, GI panel. Will give IV fluids. Will reassess. CT head and CT C-spine without acute findings. Patient is signed out to Dr. Marie Pak. <Marie Pak, DO - Last Filed: 09/16/24 06:16> Lab Data Labs: Lab Results 09/15/24 09/15/24 Range/Units 18:30 18:36 WBC 12.4 H (4.5-11.0) X10^3/uL RBC 4.84 (4.0-5.2) X10^6/uL Hgb 14.5 (12.0-16.0) g/dL Hct 43.6 (36-46) % MCV 90.0 (80-100) fL MCH 30.0 (26-34) PG MCHC 33.4 (30-36) % RDW 13.7 (11.6-14.8) % Plt Count 300 (150-400) X10^3/uL Neut % (Auto) 65.2 (50-75) % Lymph % (Auto) 26.1 (25-40) % Taylor % (Auto) 5.7 (3-14) % Eos % (Auto) 2.1 (2-4) % Baso % (Auto) 0.9 (0-2) % Neut # (Auto) 8100 H (1801-2036) /uL Lymph # (Auto) 3200 (4064-3938) /uL Taylor # (Auto) 700 (0-900) /uL Eos # (Auto) 300 (0-450) /uL Baso # (Auto) 100 (0-100) /uL Sodium 138 (137-145) mmol/L Potassium 4.4 (3.4-5.1) mmol/L Chloride 100 (98-107) mmol/L Carbon Dioxide 29 (22-32) mmol/L BUN 25 H (7-17) mg/dL Creatinine 1.02 (0.52-1.04) mg/dL Estimated GFR 57 L (>60) mL/min BUN/Creatinine Ratio 24.5 H (6-22) Glucose 210 H (80-110) mg/dL Hemoglobin A1c 10.0 H (4.0-6.0) % Calcium 10.1 (8.4-10.2) mg/dL Total Bilirubin 0.7 (0.2-1.3) mg/dL AST 29 (14-36) IU/L ALT 28 (<35) IU/L Alkaline Phosphatase 89 (38-126) U/L Total Protein 7.9 (6.3-8.2) g/dL Albumin 4.4 (3.5-5.0) g/dL Globulin 3.5 (1.7-4.1) g/dL Albumin/Globulin Ratio 1.3 (1.0-2.8) Imaging Data CT scan - abdomen/pelvis: Radiologist's Impression: PROCEDURE: CT ABDOMEN PELVIS W CON INDICATIONS: acute on chronic diarrhea TECHNIQUE: After the administration of intravenous contrast, axial sections acquired from the lung bases to the pubic symphysis. Coronal and sagittal reformats were performed. For radiation dose reduction, the following was used: automated exposure control, adjustment of mA and/or kV according to patient size. COMPARISON: [facility], CT, CT ABDOMEN PELVIS W CON, 10/10/2023, 23:47. [facility], CT, CT ABDOMEN PELVIS W CON, 06/14/2023, 21:33. FINDINGS: Image quality: Diagnostic. Lower Chest: No significant findings. Moderate to severe coronary artery calcifications. ABDOMEN: Liver: No solid mass. Geographic fatty infiltration of the liver. Gallbladder: Status post cholecystectomy. Biliary ducts: No biliary dilation. Pancreas: No ductal dilation. Spleen: Size is within normal limits. Adrenal Glands: No adrenal nodules. Kidneys and Ureters: No hydronephrosis. No solid mass. No complex renal cystic lesion which requires follow up. Stomach and Bowel: Small hiatal hernia. Liquid stool material is seen in the colon. Small bowel loops and stomach are unremarkable. Peritoneum: No abnormal intraperitoneal fluid. No free air. Ventral Wall: No significant ventral hernia. Abdominal Nodes: No retroperitoneal or mesenteric adenopathy by size criteria. Vessels: Aorta and inferior vena cava are normal in size. PELVIS: Pelvic Organs: Status post hysterectomy. Bladder: No bladder wall thickening, accounting for underdistention. Pelvic Nodes: No enlarged lymph nodes. Miscellaneous: No inguinal hernias are seen. Bones: No aggressive osseous abnormality. Severe right hip osteoarthrosis. Multilevel degenerative changes in the spine. Sclerotic lesion in the right iliac bone most likely a giant benign bone island. IMPRESSION: Liquid stool material throughout the colon compatible with the clinical history of diarrhea. Segments of mild bowel wall thickening may indicate a nonspecific colitis. Approved by: Geovanni Nichols M.D. on 09/15/2024 at 20:00 CT scan - head: Radiologist's Impression: PROCEDURE: CT HEAD/BRAIN WO CON INDICATIONS: fall TECHNIQUE: Noncontrast 4.5 mm thick angled axial sections acquired from the foramen magnum to the vertex, with coronal and sagittal reformats. For radiation dose reduction, the following was used: automated exposure control, adjustment of mA and/or kV according to patient size. COMPARISON: [facility], CT, CT HEAD/BRAIN WO CON, 06/14/2023, 21:33. FINDINGS: Image quality: Diagnostic. CSF spaces: Basal cisterns are patent. No extra-axial fluid collections. The ventricles are symmetric in size and shape. Brain: No acute intracranial hemorrhage or mass effect. There is cerebral volume loss for age, with resultant ventricular and sulcal prominence. There are periventricular and deep white matter chronic small vessel ischemic changes. There is intracranial internal carotid artery atherosclerosis. Skull and face: Calvarium and visualized facial bones appear intact, without suspicious lesions. Sinuses: Visualized sinuses and mastoids are clear. IMPRESSION: No acute intracranial pathology. Approved by: Geovanni Nichols M.D. on 09/15/2024 at 18:24 CT - cervical spine: Radiologist's Impression: PROCEDURE: CT CERVICAL SPINE WO CON INDICATIONS: fall TECHNIQUE: Noncontrast 3 mm thick sections acquired from the skull base to the T4 level. Sagittal and coronal reformats were then constructed. For radiation dose reduction, the following was used: automated exposure control, adjustment of mA and/or kV according to patient size. COMPARISON: [facility], , THYROID, 12/20/2023, 13:39. FINDINGS: Image quality: Excellent. Bones: No acute fractures or dislocations. Visualized superior ribs are intact. Minimal cervical spondylosis. Soft tissues: Prevertebral soft tissues are normal in thickness. No paravertebral hematomas. No apical pneumothoraces. Enlarged heterogeneous thyroid. IMPRESSION: No acute displaced fracture or traumatic subluxation. Approved by: Geovanni Nichols M.D. on 09/15/2024 at 18:52 MDM Narrative Medical decision making narrative: 78-year-old female with past medical history diabetes, peripheral neuropathy, hyperlipidemia, hypertension, fibromyalgia, urge incontinence, chronic diarrhea presents to the ED with an acute on chronic exacerbation of the diarrhea. Concern for C diff colitis versus gastroenteritis versus chronic diarrhea versus dehydration versus electrolyte derangements versus intracranial hemorrhage versus UTI versus other. Will obtain CT head, CT C-spine, CT abdomen pelvis, labs, UA, GI panel. Will give IV fluids. Will reassess. CT head and CT C-spine without acute findings. Patient is signed out to Dr. Marie Pak. Patient signed out to me by whom I have seen evaluated patient myself. CT does show liquid stool with colitis. She has been unable to provide a stool sample here in the ED. Blood work is overall reassuring without evidence of dehydration. She has persistent leukocytosis of 12.4 it was previously 11.7 and before that 11.1. I do not see need for antibiotics at this time. She can follow up with the primary care provider Discharge Plan Departure Patient Disposition: Home Clinical Impression: Colitis Instructions: DI for Colitis Activity Restrictions/Additional Instructions: *You have been diagnosed with colitis diarrhea *What to do: At this time increase fluids as tolerated your CT scan does show some mild colitis I would try and get an outpatient stool sample this can be arranged with Dr. Elias *Continue to take medications as directed *Follow up with your primary care provider in 2-3 days or call [phone] *Return to ER if you should have increasing dizziness lightheadedness abdominal pain bloody stool or any new, worsening or concerning symptoms Prescriptions: No Action glipizide 10 mg tablet 10 mg PO BID lisinopril 40 mg tablet 40 mg PO DAILY metformin 500 mg tablet extended release 24 hr 1,000 mg PO BID buspirone 5 mg tablet 5 mg PO BID ketoconazole 2 % shampoo 1 applic topical 2XW PRN ketoconazole 2 % cream 1 applic topical DAILY PRN aspirin 81 mg tablet,delayed release (DR/EC) 81 mg PO DAILY quetiapine 50 mg tablet 50 mg PO BEDTIME PNV #[id number] acid-omega3 1 cap PO DAILY fluticasone propion-salmeterol [Wixela Inhub] 250-50 mcg/dose blister with device 1 inh inhalation BID albuterol sulfate 90 mcg/actuation HFA aerosol inhaler 1 - 2 puff inhalation Q4H PRN (Reason: dyspnea) acetaminophen 500 mg tablet 500 mg PO Q6H PRN lidocaine [Aspercreme (lidocaine)] 4 % adhesive patch,medicated 1 patch topical DAILY PRN codeine-guaifenesin 10-100 mg/5 mL liquid 10 ml PO Q4-6H PRN hydrocodone-acetaminophen 5-325 mg tablet 1 tab PO TID PRN ipratropium-albuterol 0.5 mg-3 mg(2.5 mg base)/3 mL solution for nebulization 3 ml inhalation Q6H PRN lidocaine HCl [Aspercreme (lidocaine HCl)] 4 % cream 1 applic topical BID PRN magnesium oxide 400 mg magnesium tablet 400 mg PO DAILY PRN methocarbamol 500 mg tablet 500 mg PO BID PRN (DME) blood-glucose meter,continuous Misc See Rx Instructions .Route Qty: 1 0RF Rx Instructions: As directed duloxetine 20 mg capsule,delayed release(DR/EC) 20 mg PO DAILY propranolol 20 mg tablet 20 mg PO BEDTIME rosuvastatin 40 mg tablet 40 mg PO DAILY Patient Comments: All the medicines I'm taking in this hospital is in my record. potassium chloride 10 mEq tablet extended release 10 meq PO Q OTHER DAY insulin glargine [Lantus Solostar U-100 Insulin] 100 unit/mL (3 mL) insulin pen 10 unit SUBCUT 2100 Rx Instructions: take 10 units if blood sugar is over 200. amlodipine 10 mg tablet 10 mg PO DAILY fluoxetine 20 mg tablet 40 mg PO DAILY diclofenac sodium 75 mg tablet,delayed release (DR/EC) 75 mg PO BID clobetasol 0.05 % ointment 1 applic topical DAILY meloxicam 7.5 mg tablet See Rx Instructions .ROUTE .COMPLEX Qty: 30 2RF Rx Instructions: 1-2 tabs Po daily as needed for knee pain Referrals: Ellie Elias DO [Primary Care Provider] - Stand Alone Forms: Patient Portal/API/Survey
[2024-09-15 18:42] LABS: Add Manual Diff / Slide Review NO; Basophils Absolute Auto 100 /uL (0-100); Basophils Percent Auto 0.9 % (0-2); Eosinophils Absolute Auto 300 /uL (0-450); Eosinophils Percent Auto 2.1 % (2-4); Hematocrit 43.6 % (36-46); Hemoglobin 14.5 g/dL (12.0-16.0); Lymphocytes Absolute Auto 3200 /uL (1100-4500); Lymphocytes Percent Auto 26.1 % (25-40); Mean Corpuscular HGB Conc 33.4 % (30-36); Monocytes Absolute Auto 700 /uL (0-900); Monocytes Percent Auto 5.7 % (3-14); Neutrophils Absolute Auto 8100 /uL (1500-7000); Neutrophils Percent Auto 65.2 % (50-75); Platelet Count 300 X10^3/uL (150-400); Red Blood Cell Count 4.84 X10^6/uL (4.0-5.2); Red Cell Distribution Width 13.7 % (11.6-14.8); White Blood Cell Count 12.4 X10^3/uL (4.5-11.0)
[2024-09-15 18:56] LABS: Alanine Aminotransferase 28 IU/L (<35); Albumin 4.4 g/dL (3.5-5.0); Albumin Globulin Ratio 1.3 (1.0-2.8); Alkaline Phosphatase 89 U/L (38-126); Aspartate Aminotransferase 29 IU/L (14-36); BUN Creatinine Ratio 24.5 (6-22); Bilirubin Total 0.7 mg/dL (0.2-1.3); Blood Urea Nitrogen 25 mg/dL (7-17); Calcium 10.1 mg/dL (8.4-10.2); Carbon Dioxide 29 mmol/L (22-32); Chloride 100 mmol/L (98-107); Estimated Glomerular Filt Rate 57 mL/min (>60); Globulin 3.5 g/dL (1.7-4.1); Glucose 210 mg/dL (80-110); HEMOLYSIS 23 (0-50); Potassium 4.4 mmol/L (3.4-5.1); Sodium 138 mmol/L (137-145); Total Protein 7.9 g/dL (6.3-8.2)
[2024-09-15] MEDS: SODIUM CHLORIDE 0.9% 1,000 ML 1000 ML IV (19:08)
[2024-09-15] MEDS: ONDANSETRON 4 MG/2 ML INJ IV (19:08)
[2024-09-15 20:00] VITALS: BP 141/66; PULSE 83; RESP 18; TEMP 37.1; O2SAT 96
== END 2024-09-15 23:30 | disposition home or self-care (01) ==
PROVIDERS: Student in an Organized Health Care Education/Training Program; Emergency Provider Emergency Medicine; PCP Family Medicine
DX: K52.9 Noninfective gastroenteritis and colitis, unspecified (principal); E11.42 Type 2 diabetes mellitus with diabetic polyneuropathy; E78.5 Hyperlipidemia, unspecified; I10 Essential (primary) hypertension; M79.7 Fibromyalgia; N39.41 Urge incontinence; R11.2 Nausea with vomiting, unspecified; W19.XXXA Unspecified fall, initial encounter; Z79.84 Long term (current) use of oral hypoglycemic drugs; Z79.4 Long term (current) use of insulin
CPT/HCPCS: 36415; 70450; 72125; 74177; 80053; 83036; 85025; 96361; 96374; 99284; 99285; J2405; Q9967

== ENCOUNTER → 2024-10-28 15:34 | Outpatient (CLI) | payer MEDICARE, SELFPAY ==
[2023-10-11 02:16] VITALS: BMI 41.8
--- NOTE | 2024-10-28 17:35 | DIAB.INIT ---
Initial Diabetes Education Assessment Name: Ninfa Hercules Time: 4-5p Dx: Type II Diabetes Provider: Jada Preferred Learning Style: Listening, watching, doing, reading Ninfa presents for initial Dm visit, no previous Dm education. Diagnosed in 2006 and immediately treated with insulin. Lives in assisted living facility. Recently diagnosed with colitis per report. Had diarrhea x 7 months. Yesterday 71mg/dl BG and felt shaky and sweaty with vision changes. Treated with help, drank juice and ate crackers. Checked BG q 15 mins and symptoms subsided when BG was 140. Feels low under 100mg/dl. Reports horrible depression. Filled out the behavioral health clinic paperwork here at . Has had 4 family deaths in a matter of months. Interested in CGM. Moved basal insulin recently to AM. Does not keep any low treatment in her home. Per PCP notes, was not taking insulin regularly. Self-Monitoring Blood Glucose: Checks 4x per day: FBG, pre lunch, pre dinner, HS. Reports FBG usually 109-125mg/dl and pre mals often 170-220mg/dl. Diabetes Medications: 1000mg Metformin 10mg Glipizide BID 10u Lantus Pertinent Labs: HGA1c: 10% 09/2024 Past Medical History: (Last Updated 09/03/24 @ 13:03 by Ellie Elias DO) Acute reaction to situational stress Depression Diabetes Dyspnea on exertion Fatigue Fibromyalgia History of arthritis History of chronic urinary tract infection History of depression Hx of migraine headaches Hyperlipidemia Hypertension Lichen sclerosus et atrophicus Lower leg edema Microscopic hematuria Nausea & vomiting Peripheral neuropathy Secondhand smoke exposure Sepsis Unintentional weight loss Urge incontinence Intervention: This participant was very receptive. Provided appropriate educational handouts. Discussed the following topics: Completed intake assessment. Discussed barriers to care. Impact of depression and emotions on her care/ability to care for her DM BG trends and goals low BG s/s and treatment CGM sample education, precautions, and self placement guidance Limitations she may have with food access due to living place Created SMART goals for patient self-care and success. Goals: Keep quick sugar in purse and home Keep food and symptom journal x 10days Wear CGM Follow-up: [facility] follow-up in 2-[address] will message PCP team about sending CGM rx to DME. Renay Griffin RDN, VASYL Certified Diabetes Care and Bee Rancher P: [phone] Thank you for this referral
== END ==
LOC: DIET 15:35
PROVIDERS: PCP Family Medicine; Referring Provider Family Medicine
DX: E11.9 Type 2 diabetes mellitus without complications (principal); K52.9 Noninfective gastroenteritis and colitis, unspecified; E78.5 Hyperlipidemia, unspecified; F32.A Depression, unspecified; Z79.84 Long term (current) use of oral hypoglycemic drugs; Z79.4 Long term (current) use of insulin; Z71.3 Dietary counseling and surveillance
CPT/HCPCS: G0108

== ENCOUNTER → 2024-11-20 12:24 | Outpatient (CLI) | payer MEDICARE, SELFPAY ==
[2023-10-11 02:16] VITALS: BMI 41.8
--- NOTE | 2024-12-09 09:42 | DIAB.MNT ---
Initial Diabetes Medical Nutrition Therapy Assessment Name: Ninfa Hercules Date: 11/20/24 Time: 1-150p Dx: Type II Diabetes Ninfa presents for MNT DM visit. Diagnosed in 2006 and immediately treated with insulin. Lives in assisted living facility. Reports continued consistent diarrhea. Has urgent GI referral placed, but has not yet called office. States diarrhea drains me. Urgency is difficult and sometimes does not make it to the toilet. Lives in assisted living. Endorses some nausea sometimes associated with elevated BG per report. d/c of Metformin but states no change has occurred with BM. up to 20u basal insulin. Incorporates sugar substitutes in diet. Sees PC today. RD provided her with CGM report. Diet recall: 9a: oats 1c, milk, sausage, coffee 1230p: 1c chili with onions and cheese, pear 1/2c 3p: 5 triscuits with cheese 530p: protein, rice x 1/2 c, squash x1/2 c 830p: coffee, water Self-Monitoring Blood Glucose: Wore CGM sample TIR: 20% very high 47% high 33% in range avmg/dl GMI: 8.3% std dev: 51 mg/dl variance 248mg/dl Diabetes Medications: 1000mg Metformin-- d/c 10mg Glipizide BID 10u Lantus--- 20u Pertinent Labs: HGA1c: 10% 09/2024 Past Medical History: (Last Updated 09/03/24 @ 13:03 by Ellie Elias DO) Acute reaction to situational stress Depression Diabetes Dyspnea on exertion Fatigue Fibromyalgia History of arthritis History of chronic urinary tract infection History of depression Hx of migraine headaches Hyperlipidemia Hypertension Lichen sclerosus et atrophicus Lower leg edema Microscopic hematuria Nausea & vomiting Peripheral neuropathy Secondhand smoke exposure Sepsis Unintentional weight loss Urge incontinence Intervention: This participant was very receptive. Provided appropriate educational handouts. Discussed the following topics: Diarrhea MNT: low fiber Impact of sugar subs on BM Strategies for reducin diarrhea and staying hydrated BG trends and encouraged insulin titration if PCP agrees Created SMART goals for patient self-care and success. Goals: Keep quick sugar in purse and home-- met Keep food and symptom journal x 10days- met but did not bring Wear CGM - met Follow low fiber diet until see GI- new Call GI by Sunday- new Avoid sugar substitutes at this time- new Follow-up: [facility] follow-up in 3-4 weeks. Renay Griffin RDN, [facility] Certified Diabetes Care and Nursery Supervisor P: [phone] Thank you for this referral
== END ==
PROVIDERS: PCP Family Medicine
DX: E11.9 Type 2 diabetes mellitus without complications (principal); Z79.4 Long term (current) use of insulin; Z71.3 Dietary counseling and surveillance; E78.5 Hyperlipidemia, unspecified; K52.9 Noninfective gastroenteritis and colitis, unspecified
CPT/HCPCS: 97802

== ENCOUNTER → 2024-12-11 13:21 | Outpatient (CLI) | payer MEDICARE, MEDICAID, SELFPAY ==
[2023-10-11 02:16] VITALS: BMI 41.8
--- NOTE | 2024-12-18 10:43 | DIAB.FU ---
Follow-up Diabetes Education Assessment Name: Ninfa Hercules Date: 12/11/24 Time: 3-350p Dx: Type II Diabetes Ninfa presents for DM follow-up. Diagnosed in 2006 and immediately treated with insulin. Lives in assisted living facility. Reports improved diarrhea with low fiber diet and medication from PCP. Still having loose BM but much more manageable. Saw GI today and plans for urgen colonoscopy. Also reports a behavioral health initial visit today, which she is very much looking forward to. Today in clinic BG at 96mg/dl and had symptoms of low, sweaty/shaky/nauseated. Treated gently with a few pieces of candy and resolved. Endorses eating protein, veggies and cottage cheese last night and BG went up to 305mg/dl. Open to insulin pump therapy. With her insurance Omnipod would be well covered likely. Will message Omnipod contacts regarding capabilities since pt does not operate a smart phone and uses CGM pharm tech. Self-Monitoring Blood Glucose: Has personal CGM. Similar TIR as previous visit with slight some increase in hyperglycemia. Not currently at goal for TIR. TIR: 24% very high 49% high 27% in range 0% low avmg/dl GMI: 8.5% std dev: 54 mg/dl variance 25.2% Last TIR: 20% very high 47% high 33% in range avmg/dl GMI: 8.3% std dev: 51 mg/dl variance 248mg/dl Diabetes Medications: 10mg Glipizide BID 45u Lantus Pertinent Labs: HGA1c: 10% 09/2024 Past Medical History: (Last Updated 09/03/24 @ 13:03 by Ellie Elias DO) Acute reaction to situational stress Depression Diabetes Dyspnea on exertion Fatigue Fibromyalgia History of arthritis History of chronic urinary tract infection History of depression Hx of migraine headaches Hyperlipidemia Hypertension Lichen sclerosus et atrophicus Lower leg edema Microscopic hematuria Nausea & vomiting Peripheral neuropathy Secondhand smoke exposure Sepsis Unintentional weight loss Urge incontinence Intervention: This participant was very receptive. Provided appropriate educational handouts. Discussed the following topics: Reviewed rule of 15 for lows <70 and gentle treatment of symptomatic numbers that are not true lows Reviewed etiology of low symptoms with BG in goal Discussed insulin pump options and likely coverage Created SMART goals for patient self-care and success. Goals: Follow low fiber diet until see GI- met Call GI by Sunday- met Avoid sugar substitutes at this time- not discussed today central sterile supply technician Omnipod if/when pharmacy receives- new Follow-up: [facility] follow-up in 3-4 weeks. ROGELIO gudino Omnipod contacts to determine capabilities without smart phone. will coordinate with PCP office once this is determined. Renay Griffin RDN, [facility] Certified Diabetes Care and Poultry Scalder P: [phone] Thank you for this referral
== END ==
PROVIDERS: PCP Family Medicine; Referring Provider Family Medicine
DX: E11.65 Type 2 diabetes mellitus with hyperglycemia (principal); Z79.84 Long term (current) use of oral hypoglycemic drugs; Z79.4 Long term (current) use of insulin; Z71.3 Dietary counseling and surveillance
CPT/HCPCS: G0108

== ENCOUNTER → 2025-01-09 12:08 | Outpatient (CLI) | payer MEDICARE, MEDICAID, SELFPAY ==
[2023-10-11 02:16] VITALS: BMI 41.8
--- NOTE | 2025-01-09 15:50 | DIAB.FU ---
Follow-up Diabetes Education Assessment Name: Ninfa Hercules Date: 01/09/25 Time: 1-2p Dx: Type II Diabetes Ninfa presents for DM follow-up. Diagnosed in 2006 and immediately treated with insulin. Lives in assisted living facility. Comes into office today with Omnipod 5 compatible with g6 or [id number]. Does not currently have a compatible CGM, waiting on [facility]. Also does not have fast acting insulin. RD sent message to PCP workgroup requesting insulin for her Omnipod pump and [id number] rx to a DME, which will likely be approved faster than [facility]. Reports feeling low at 100mg/dl or lower. Will feel shaky, lightheaded and weak. Reports a BG under 70mg/dl, however none captured by CGM the last 14 days. Reports feeling of confusion with lows. Purchased glucose tabs for lows. Started Mounjaro at 2.5mg weekly and BG improved. Reports need for a hip replacement. States she needs a hgA1c <7% for this. Self-Monitoring Blood Glucose: Has personal CGM. Much improved TIR since last visit. TIR: 3% very high 36% high 61% in range 0% low avmg/dl GMI: 7.3% std dev: 43 mg/dl variance 25.9% Last TIR: 24% very high 49% high 27% in range 0% low avmg/dl GMI: 8.5% std dev: 54 mg/dl variance 25.2% Diabetes Medications: 10mg Glipizide BID 45u Lantus----40u 2.5mg Mounjaro weekly Pertinent Labs: HGA1c: 10% 09/2024 Past Medical History: (Last Updated 09/03/24 @ 13:03 by Ellie Elias DO) Acute reaction to situational stress Depression Diabetes Dyspnea on exertion Fatigue Fibromyalgia History of arthritis History of chronic urinary tract infection History of depression Hx of migraine headaches Hyperlipidemia Hypertension Lichen sclerosus et atrophicus Lower leg edema Microscopic hematuria Nausea & vomiting Peripheral neuropathy Secondhand smoke exposure Sepsis Unintentional weight loss Urge incontinence Intervention: This participant was very receptive. Provided appropriate educational handouts. Discussed the following topics: Troubleshooting for [id number] and insulin rx Review of importance of well managed BG with surgery, ie hip replacement Discussed the need for reducing insulin if GLP1 dose in increased, ie 10-20% reduction recommended Review of low s/s and acclimation of body to improved BG Reviewed supplies needed to start insulin pump, ie pump pods, insulin, and compatible CGM Created SMART goals for patient self-care and success. Goals: director of sales support Omnipod if/when pharmacy receives- met Call RD once rx for supplies comes through- new Eat a snack when feeling low but glucose is still >80mg/dl- new Follow-up: [facility] follow-up rec in 2-4 weeks once supplies are acquired for insulin pump start. Renay Griffin RDN, [facility] Certified Diabetes Care and Meter And Service Line Inspector P: [phone] Thank you for this referral
== END ==
LOC: DIET 12:08
PROVIDERS: PCP Family Medicine; Referring Provider Family Medicine
DX: E11.9 Type 2 diabetes mellitus without complications (principal); Z79.85 Long-term (current) use of injectable non-insulin antidiabetic drugs; Z71.3 Dietary counseling and surveillance; Z79.84 Long term (current) use of oral hypoglycemic drugs; Z79.4 Long term (current) use of insulin; Z46.81 Encounter for fitting and adjustment of insulin pump
CPT/HCPCS: G0108

== ENCOUNTER → 2025-02-04 15:31 | Outpatient (CLI) | payer MEDICARE, MEDICAID, SELFPAY ==
[2023-10-11 02:16] VITALS: BMI 41.8
[2025-02-04 17:03] LABS: Alanine Aminotransferase 13 IU/L (<35); Albumin 4.4 g/dL (3.5-5.0); Albumin Globulin Ratio 1.4 (1.0-2.8); Alkaline Phosphatase 98 U/L (38-126); Blood Urea Nitrogen 32 mg/dL (7-17); Calcium 9.9 mg/dL (8.4-10.2); Carbon Dioxide 26 mmol/L (22-32); Chloride 103 mmol/L (98-107); Estimated Glomerular Filt Rate 45 mL/min (>60); Globulin 3.1 g/dL (1.7-4.1); Glucose 103 mg/dL (70-99); HEMOLYSIS < 15 (0-50); Potassium 4.8 mmol/L (3.4-5.1); Sodium 139 mmol/L (137-145); Total Protein 7.5 g/dL (6.3-8.2)
[2025-02-04 17:06] LABS: Hemoglobin A1C% w Est Avg Glu 6.2 % (4.0-6.0)
== END ==
PROVIDERS: PCP Family Medicine; Referring Provider Family Medicine; Visit Provider Family Medicine
DX: E11.9 Type 2 diabetes mellitus without complications (principal); N18.9 Chronic kidney disease, unspecified
CPT/HCPCS: 36415; 80053; 83036

== ENCOUNTER → 2025-02-20 06:51 | Outpatient (CLI) | payer MEDICARE, MEDICAID, SELFPAY ==
[2023-10-11 02:16] VITALS: BMI 41.8
--- NOTE | 2025-02-20 06:55 | DI.RAD.S_ITS ---
PROCEDURE: XR CHEST 2V INDICATIONS: fever, shortness of breath, cough 1 month TECHNIQUE: 2 views of the chest were acquired. COMPARISON: [facility], CR, XR CHEST 1V, 10/10/2023, 19:47. FINDINGS: Surgical changes and devices: None. Lungs and pleura: Lungs are clear. No pleural effusions or pneumothorax. Mediastinum: Mediastinal contours are normal. Heart size is normal. Bones and chest wall: No suspicious bony abnormalities. Soft tissues appear unremarkable. IMPRESSION: No acute cardiopulmonary abnormalities or focal consolidation. Dictated by: Shon Agee M.D. on 02/20/2025 at 9:43 Approved by: Shon Agee M.D. on 02/20/2025 at 9:44
[2025-02-20 08:13] LABS: Hematocrit 45.0 % (36-46); Hemoglobin 15.0 g/dL (12.0-16.0); Mean Corpuscular HGB Conc 33.4 % (30-36); Mean Corpuscular Hemoglobin 30.5 PG (26-34); Mean Corpuscular Volume 91.3 fL (80-100); Platelet Count 326 X10^3/uL (150-400)
[2025-02-20 17:23] LABS: Add Manual Diff / Slide Review YES
[2025-02-20 17:51] LABS: Eosinophils Percent Manual 2.0 % (2-4); Lymphocytes Percent Manual 40.0 % (25-45); Monocytes Percent Manual 6.0 % (2-11); Neutrophils Absolute Manual 7176 /uL (3000-5900); RBC Morphology Normal Morphology; Segmented Neutrophils Percent 52.0 % (38-70); Total Cells Counted 100
== END ==
LOC: RAD 06:53
PROVIDERS: PCP Family Medicine; Referring Provider Family Medicine; Visit Provider Family Medicine
DX: R05.9 Cough, unspecified (principal); R50.9 Fever, unspecified; R06.02 Shortness of breath; Z87.01 Personal history of pneumonia (recurrent)
CPT/HCPCS: 36415; 71046; 85007; 85025

== ENCOUNTER → 2025-02-25 10:45 | Outpatient (CLI) | payer MEDICARE, MEDICAID, SELFPAY ==
[2023-10-11 02:16] VITALS: BMI 41.8
[2025-02-25 12:52] LABS: Thyroid Stimulating Hormone 1.19 uIU/mL (0.47-4.68)
[2025-02-25 15:43] LABS: Influenza A - CEPHEID Flu A NEGATIVE (NEGATIVE); Influenza B - CEPHEID Flu B NEGATIVE (NEGATIVE)
[2025-02-25 15:44] LABS: COVID-19 CEPHEID 4-PLEX PCR Negative (Negative)
[2025-02-26 08:09] LABS: CRP, High Sensitivity 9.42 mg/L (0.00-3.00)
== END ==
PROVIDERS: PCP Family Medicine; Referring Provider Family Medicine; Visit Provider Family Medicine
DX: E03.9 Hypothyroidism, unspecified (principal); D72.829 Elevated white blood cell count, unspecified; M25.50 Pain in unspecified joint; G89.29 Other chronic pain
CPT/HCPCS: 36415; 84443; 85651; 86140; 87637

== ENCOUNTER 2025-02-25 12:01 | Emergency (ER) | payer MEDICARE, MEDICAID, SELFPAY ==
[2023-10-11 02:16] VITALS: BMI 41.8
[2025-02-25] VITALS (12 sets, daily range): BP systolic 117–131; BP diastolic 7–71; PULSE 75–89; RESP 16–20; TEMP 36.2; O2SAT 93–96; BMI 42.1
--- NOTE | 2025-02-25 12:17 | DI.RAD.S_ITS ---
PROCEDURE: XR TOE RT MIN 2V INDICATIONS: fall/bruising/swollen TECHNIQUE: AP of the foot and 2 views of the right 1st toe(s) acquired. COMPARISON: None. FINDINGS: Bones: No fractures or dislocations. No suspicious bony lesions. Soft tissues: No suspicious soft tissue densities. IMPRESSION: No acute bony abnormality. Dictated by: Gracy Yeung MD, PhD on 02/25/2025 at 13:11 Approved by: Gracy Yeung MD, PhD on 02/25/2025 at 13:11
[2025-02-25] MEDS: SODIUM CHLORIDE 0.9% 1,000 ML 1000 ML IV (13:03)
[2025-02-25 13:07] LABS: Base Excess VBG -0.8 mmol/L (0-4); HCO3 VBG 24 mmol/L (24-28); Oxygen Saturation VBG 84 % (70-75); PCO2 VBG 40.7 mmHg (45-50); PO2 VBG 49 mmHg (35-45); Total CO2 VBG 23 mmol/L (24-29); pH VBG 7.38 (7.33-7.43)
[2025-02-25 13:24] LABS: Alanine Aminotransferase 18 IU/L (<35); Albumin 4.6 g/dL (3.5-5.0); Albumin Globulin Ratio 1.2 (1.0-2.8); Alkaline Phosphatase 99 U/L (38-126); Blood Urea Nitrogen 35 mg/dL (7-17); Calcium 9.8 mg/dL (8.4-10.2); Carbon Dioxide 22 mmol/L (22-32); Chloride 100 mmol/L (98-107); Estimated Glomerular Filt Rate 38 mL/min (>60); Globulin 3.8 g/dL (1.7-4.1); Glucose 186 mg/dL (70-99); HEMOLYSIS 41 (0-50); Lipase 81 U/L (23-300); Potassium 4.8 mmol/L (3.4-5.1); Sodium 135 mmol/L (137-145); Total Protein 8.4 g/dL (6.3-8.2)
[2025-02-25 13:27] LABS: Add Manual Diff / Slide Review NO; Hematocrit 42.2 % (36-46); Hemoglobin 14.4 g/dL (12.0-16.0); Lymphocytes Absolute Auto 2800 /uL (1100-4500); Mean Corpuscular HGB Conc 34.1 % (30-36); Mean Corpuscular Hemoglobin 30.8 PG (26-34); Mean Corpuscular Volume 90.1 fL (80-100); Platelet Count 282 X10^3/uL (150-400)
--- NOTE | 2025-02-25 13:44 | ED.GENADULT ---
HPI - General Adult General Chief complaint: Diabetic Problem Stated complaint: N/V Weak , Diabetic x 7 days Time Seen by Provider: 02/25/25 12:42 Source: patient Mode of arrival: Wheelchair History of Present Illness HPI narrative: This is a 79-year-old female with a history of hypertension and type 2 diabetes presenting with 5 days of vomiting. She says she has had 5 days of nausea and vomiting. She has not had abdominal pain she has not had fevers she does not have urinary symptoms. She has been passing gas but has not had a bowel movement in several days this may have began before the vomiting. Previous surgical history includes hysterectomy cholecystectomy and appendectomy. She does not have frequent vomiting. Related Data Home Medications ?Medication ?Instructions ?Recorded ?Confirmed propranolol 20 mg tablet 20 mg PO BEDTIME 06/15/23 02/25/25 rosuvastatin 40 mg tablet 40 mg PO DAILY 06/15/23 02/25/25 potassium chloride 10 mEq 10 meq PO Q OTHER DAY 07/05/23 02/25/25 tablet,extended release amlodipine 10 mg tablet 10 mg PO DAILY 09/27/23 02/25/25 clobetasol 0.05 % topical ointment 1 applic topical DAILY 09/27/23 02/25/25 diclofenac sodium 75 mg 75 mg PO BID 09/27/23 02/25/25 tablet,delayed release PNV #[id number] acid-[id number] 1 cap PO DAILY 09/03/24 02/25/25 albuterol sulfate 90 mcg/actuation 1 - 2 puff inhalation Q4H PRN 09/03/24 02/25/25 aerosol inhaler dyspnea aspirin 81 mg tablet,delayed 81 mg PO DAILY 09/03/24 02/25/25 release codeine 10 mg-guaifenesin 100 mg/5 10 ml PO Q4-6H PRN 09/03/24 02/25/25 mL oral liquid fluticasone 250 mcg-salmeterol 50 1 inh inhalation BID 09/03/24 02/25/25 mcg/dose blistr powdr for inhalation (Wixela Inhub) glipizide 10 mg tablet 10 mg PO BID 09/03/24 02/25/25 ipratropium 0.5 mg-albuterol 3 mg 3 ml inhalation Q6H PRN 01/29/25 07/23/25 (2.5 mg base)/3 mL nebulization soln ketoconazole 2 % shampoo 1 applic topical 2XW PRN 09/03/24 02/25/25 lisinopril 40 mg tablet 40 mg PO DAILY 09/03/24 02/25/25 magnesium oxide 400 mg PO DAILY PRN 09/03/24 02/25/25 quetiapine 50 mg tablet 50 mg PO BEDTIME 09/03/24 02/25/25 acetaminophen 500 mg tablet 1,000 mg PO Q6H PRN 10/15/24 02/25/25 colestipol 1 gram tablet 1 g PO BID 12/18/24 02/25/25 fluoxetine 20 mg tablet 20 mg PO DAILY 02/25/25 02/25/25 meloxicam 15 mg tablet 15 mg PO DAILY 02/25/25 02/25/25 Previous Rx's ?Medication ?Instructions ?Recorded pen needle, diabetic 30 gauge x #100 ea 10/08/2412/19 (Pen Needle) oxycodone 5 mg tablet 5 mg PO DAILY PRN pain #5 tabs 11/20/24 insulin glargine 100 unit/mL (3 35 unit (0.35 mL) SUBCUT QAM #15 mL 11/28/24 mL) subcutaneous pen (Lantus Solostar U-100 Insulin) ketoconazole 2 % topical cream 1 applic topical DAILY PRN yeast 12/15/24 infection #60 grams blood-glucose sensor (FreeStyle #2 ea 12/23/24 Chava 2 Plus Sensor device) insulin pump cart,auto,BT,G6/L #5 ea 12/23/24 (Omnipod 5 (G6/Chava 2 Plus) subcutaneous cartridge) insulin pump cartridge,auto #1 ea 12/23/24 dose,BT,G6/L2 with controller subcutaneous (Omnipod 5 Intro Kit(G6/[id number]) subcutaneous cartridge) buspirone 5 mg tablet 5 mg PO TID #90 tabs 01/23/25 duloxetine 60 mg capsule,delayed 60 mg PO DAILY #90 caps 02/11/25 release insulin lispro 100 unit/mL 65 unit (0.65 mL) SUBCUT 02/18/25 subcutaneous solution (Humalog USEASDIRECTD to use with insulin U-100 Insulin) pump #15 mL cefdinir 300 mg capsule 300 mg PO BID 5 days #10 caps 02/25/25 ondansetron 4 mg disintegrating 4 mg PO Q6H PRN nausea and 02/25/25 tablet vomiting #14 tabs tirzepatide 5 mg/0.5 mL 5 mg (0.5 mL) SUBCUT QWEEK #2 mL 02/25/25 subcutaneous pen injector Allergies Allergy/AdvReac Type Severity Reaction Status Date / Time morphine AdvReac Nightmare Verified 02/25/25 07:08 Patient History Medical History (Updated 02/25/25 @ 15:56 by Trent Huang MD) Insomnia, unspecified MDD (major depressive disorder), recurrent episode, moderate PTSD (post-traumatic stress disorder) Fatigue Sepsis Dyspnea on exertion Acute reaction to situational stress Unintentional weight loss Nausea & vomiting Secondhand smoke exposure Lichen sclerosus et atrophicus Microscopic hematuria Urge incontinence Hx of migraine headaches History of depression History of chronic urinary tract infection History of arthritis Peripheral neuropathy Depression Hyperlipidemia Fibromyalgia Hypertension Lower leg edema Diabetes Surgical History Hx of abdominal hysterectomy Hx of breast biopsy Hx of total knee replacement Hx of cholecystectomy Hx of appendectomy Family History Mother Cancer CVA (cerebral vascular accident) Hyperlipidemia Hypertension Father Hypertension Hyperlipidemia CAD (coronary artery disease) Sister Hyperlipidemia Hypertension Diabetes mellitus Multiple kidney stones Migraines Brother Hyperlipidemia Hypertension Migraines Eczema Social History marital status: number of children: 4 household members: none lives independently: Yes Smoking Status: Never smoker alcohol intake: current caffeine: Yes Type(s) of exercise: walking frequency: 3-4 times per week duration: 15-30 minutes/day Smoking Status: Never smoker alcohol intake frequency: holidays/special occasions only Exam Initial Vital Signs Initial Vital Signs: Vital Signs Temperature 97.2 F L 02/25/25 12:05 Pulse Rate 89 02/25/25 12:05 Respiratory Rate 18 02/25/25 12:05 Blood Pressure 127/7 L 02/25/25 12:05 Pulse Oximetry 94 02/25/25 12:05 Oxygen Delivery Method Room Air 02/25/25 12:05 vital signs are reviewed Const General: cooperative and No acute distress HENMT Head: normocephalic and atraumatic Face and sinus: face symmetric Mouth: moist mucous membranes Eyes Pupils: PERRL EOM: EOM intact bilaterally Neck Neck: supple Chest Chest: normal inspection of the chest Resp Effort & Inspection: normal respiratory effort and able to speak in complete sentences Auscultation: clear to auscultation bilaterally Cardio Rate: regular rate Rhythm: regular rhythm Heart Sounds: no murmurs Other: Normal heart rate GI Inspection: normal to inspection Palpation: soft Auscultation: normal bowel sounds Skin General: no rashes or lesions noted and warm Neuro General: patient alert, patient oriented x3 and moves all extremities Speech: speech normal Extrem General: full ROM Psych Appearance: grossly normal Course Orders Ordered: ED Orders 02/25/25 12:17 XR toe RT min 2V Stat 02/25/25 12:35 CBC Auto Diff [Complete Blood Count AUTO DIFF] Stat CMP [Comprehensive Metabolic Panel] Stat Lipase Stat 02/25/25 12:45 EKG-12 Lead Stat VBG [Venous Blood Gas] STAT 02/25/25 12:55 Venous Blood Gas Routine 02/25/25 13:01 Venous Blood Gas Routine 02/25/25 14:44 UA dip and micro [Urinalysis and Microscopic] Stat Urine Culture Stat 02/25/25 15:07 Consult to [facility] - [employer] Stat Discontinued Medications Droperidol (Droperidol 2.5 Mg/Ml Vial) 0.625 mg IV NOW ONE Stop: 02/25/25 13:44 Last Admin: 02/25/25 13:48 Dose: 0.625 mg Documented By: SAUNDRA Sodium Chloride (Normal Saline 0.9%) 1,000 mls @ 1,000 mls/hr IV BOLUS ONE Stop: 02/25/25 13:44 Last Infusion: 02/25/25 14:35 Dose: Infused Documented By: Admin: 02/25/25 13:03 Dose: 1,000 mls/hr Documented By: BT Ceftriaxone Sodium 2,000 mg/ (Sodium Chloride) 100 mls @ 200 mls/hr IV NOW ONE Stop: 02/25/25 15:57 Last Infusion: 02/25/25 16:43 Dose: Infused Documented By: Admin: 02/25/25 16:13 Dose: 200 mls/hr Documented By: BT Reevaluation(s) Reevaluation #1: Patient is now tolerating oral intake and free of nausea Vital Signs Vital signs: Vital Signs - 8 hr 02/25/25 12:05 02/25/25 12:18 02/25/25 12:18 Temperature 97.2 F L Pulse Rate 89 83 Respiratory Rate 18 Blood Pressure 127/7 L 129/62 Pulse Oximetry 94 95 Oxygen Delivery Method Room Air Nasal Cannula Oxygen Flow Rate 3 02/25/25 12:30 02/25/25 13:00 02/25/25 13:30 Temperature Pulse Rate 77 76 75 Respiratory Rate Blood Pressure Pulse Oximetry 93 94 95 Oxygen Delivery Method Nasal Cannula Oxygen Flow Rate 3 3 3 02/25/25 14:00 02/25/25 14:30 02/25/25 15:00 Temperature Pulse Rate 79 79 80 Respiratory Rate Blood Pressure Pulse Oximetry 95 94 96 Oxygen Delivery Method Nasal Cannula Oxygen Flow Rate 3 02/25/25 15:20 02/25/25 15:21 02/25/25 16:45 Temperature Pulse Rate 80 Respiratory Rate 16 Blood Pressure 117/58 L Pulse Oximetry 96 94 Oxygen Delivery Method Oxygen Flow Rate 02/25/25 16:46 02/25/25 16:46 Temperature Pulse Rate 87 Respiratory Rate 20 Blood Pressure 131/71 Pulse Oximetry 95 Oxygen Delivery Method Oxygen Flow Rate Medical Decision Making Lab Data Lab results narrative: Leukocytosis is noted, the patient does have evidence of urinary tract infection., venous blood gas on reassuring, glucose is reasonable at 186. Urine positive for nitrites and she has pyuria. Will treat for UTI 02/25/25 12:35 02/25/25 12:35 Labs: Lab Results 02/25/25 02/25/25 02/25/25 Range/Units 12:11 12:35 13:01 WBC 13.9 H (4.5-11.0) X10^3/uL RBC 4.68 (4.0-5.2) X10^6/uL Hgb 14.4 (12.0-16.0) g/dL Hct 42.2 (36-46) % MCV 90.1 (80-100) fL MCH 30.8 (26-34) PG MCHC 34.1 (30-36) % RDW 12.8 (11.6-14.8) % Plt Count 282 (150-400) X10^3/uL Neut % (Auto) 72.1 (50-75) % Lymph % (Auto) 19.8 L (25-40) % [place] % (Auto) 6.2 (3-14) % Eos % (Auto) 1.5 L (2-4) % Baso % (Auto) 0.4 (0-2) % Neut # (Auto) 67291 H (6737-6510) /uL Lymph # (Auto) 2800 (7720-8866) /uL [place] # (Auto) 900 (0-900) /uL Eos # (Auto) 200 (0-450) /uL Baso # (Auto) 100 (0-100) /uL VBG pH 7.38 (7.33-7.43) VBG pCO2 40.7 L (45-50) mmHg VBG pO2 49 H (35-45) mmHg VBG HCO3 24 (24-28) mmol/L VBG Total CO2 23 L (24-29) mmol/L VBG O2 Saturation 84 H (70-75) % VBG Base Excess -0.8 L (0-4) mmol/L Sodium 135 L (137-145) mmol/L Potassium 4.8 (3.4-5.1) mmol/L Chloride 100 (98-107) mmol/L Carbon Dioxide 22 (22-32) mmol/L BUN 35 H (7-17) mg/dL Creatinine 1.43 H (0.52-1.04) mg/dL Estimated GFR 38 L (>60) mL/min BUN/Creatinine Ratio 24.5 H (6-22) Glucose 186 H (70-99) mg/dL POC Whole Bld Glucose 191 H (70-99) mg/dL Calcium 9.8 (8.4-10.2) mg/dL Total Bilirubin 0.9 (0.2-1.3) mg/dL AST 29 (14-36) IU/L ALT 18 (<35) IU/L Alkaline Phosphatase 99 (38-126) U/L Total Protein 8.4 H (6.3-8.2) g/dL Albumin 4.6 (3.5-5.0) g/dL Globulin 3.8 (1.7-4.1) g/dL Albumin/Globulin Ratio 1.2 (1.0-2.8) Lipase 81 (23-300) U/L Urine Color Urine Appearance Urine pH (4.5-8.0) Ur Specific [place] (1.000-1.035) Urine Protein (Negative) Urine Glucose (UA) (Negative) g/dL Urine Ketones (NEGATIVE) Urine Occult Blood (Negative) Urine Nitrate (Negative) Urine Bilirubin (NEGATIVE) Urine Urobilinogen (0.2) E.U./dL Ur Leukocyte Esterase (NEGATIVE) Urine RBC (0-5/HPF) Urine WBC (0-5/HPF) Ur Squamous Epith Cells (0-5/HPF) Urine Bacteria (None) Ur Culture Indicated? Vol Urine Centrifuged 02/25/25 Range/Units 14:44 WBC (4.5-11.0) X10^3/uL RBC (4.0-5.2) X10^6/uL Hgb (12.0-16.0) g/dL Hct (36-46) % MCV (80-100) fL MCH (26-34) PG MCHC (30-36) % RDW (11.6-14.8) % Plt Count (150-400) X10^3/uL Neut % (Auto) (50-75) % Lymph % (Auto) (25-40) % [place] % (Auto) (3-14) % Eos % (Auto) (2-4) % Baso % (Auto) (0-2) % Neut # (Auto) (2959-1177) /uL Lymph # (Auto) (5047-4750) /uL [place] # (Auto) (0-900) /uL Eos # (Auto) (0-450) /uL Baso # (Auto) (0-100) /uL VBG pH (7.33-7.43) VBG pCO2 (45-50) mmHg VBG pO2 (35-45) mmHg VBG HCO3 (24-28) mmol/L VBG Total CO2 (24-29) mmol/L VBG O2 Saturation (70-75) % VBG Base Excess (0-4) mmol/L Sodium (137-145) mmol/L Potassium (3.4-5.1) mmol/L Chloride (98-107) mmol/L Carbon Dioxide (22-32) mmol/L BUN (7-17) mg/dL Creatinine (0.52-1.04) mg/dL Estimated GFR (>60) mL/min BUN/Creatinine Ratio (6-22) Glucose (70-99) mg/dL POC Whole Bld Glucose (70-99) mg/dL Calcium (8.4-10.2) mg/dL Total Bilirubin (0.2-1.3) mg/dL AST (14-36) IU/L ALT (<35) IU/L Alkaline Phosphatase (38-126) U/L Total Protein (6.3-8.2) g/dL Albumin (3.5-5.0) g/dL Globulin (1.7-4.1) g/dL Albumin/Globulin Ratio (1.0-2.8) Lipase (23-300) U/L Urine Color Yellow Urine Appearance Clear Urine pH 5.5 (4.5-8.0) Ur Specific [place] 1.025 (1.000-1.035) Urine Protein Negative (Negative) Urine Glucose (UA) Negative (Negative) g/dL Urine Ketones Trace H (NEGATIVE) Urine Occult Blood Negative (Negative) Urine Nitrate Positive H (Negative) Urine Bilirubin Negative (NEGATIVE) Urine Urobilinogen 1.0 (0.2) E.U./dL Ur Leukocyte Esterase 2+ H (NEGATIVE) Urine RBC None seen (0-5/HPF) Urine WBC 5-10/hpf H (0-5/HPF) Ur Squamous Epith Cells None seen (0-5/HPF) Urine Bacteria Many (>30) H (None) Ur Culture Indicated? Specimen cultured Vol Urine Centrifuged 10ml (spun) MDM Narrative Medical decision making narrative: 79-year-old type 2 diabetic presenting with several days of vomiting. Differential diagnosis includes urinary tract infection, bowel obstruction, pancreatitis, diabetic ketoacidosis, electrolyte abnormality, choledocholithiasis or gastric outlet obstruction. Workup is thus far reassuring she does not have acidosis her electrolytes are okay, her abdomen is nontender have low suspicion for bowel obstruction at this point. Still need to obtain a urine and we will treat her nausea she is being hydrated with IV fluids and we will need to pass a p.o. challenge prior to discharge. After antiemetics and IV fluids she was able to tolerate oral intake. I gave her ceftriaxone for what appeared to be a urinary tract infection. Discharge Plan Departure Patient Disposition: Home Clinical Impression: Nausea & vomiting Qualifiers: Vomiting type: unspecified Qualified Code(s): R11.2 - Nausea with vomiting, unspecified Urinary tract infection Qualifiers: Urinary tract infection type: acute cystitis Hematuria presence: without hematuria Qualified Code(s): N30.00 - Acute cystitis without hematuria Activity Restrictions/Additional Instructions: Emergency department workup today is reassuring. I think it is safe for you to go home, I am hoping that you are nausea and vomiting will resolve down to get some fluids and some nausea medication. I have sent a prescription for ondansetron to your pharmacy. Please follow up as soon as you can read your primary care provider. Continue your previous home medications. You are having increasing pain fevers or other acute symptoms please return to the emergency department Prescriptions: New ondansetron 4 mg tablet,disintegrating 4 mg PO Q6H PRN (Reason: nausea and vomiting) Qty: 14 0RF cefdinir 300 mg capsule 300 mg PO BID 5 Days Qty: 10 0RF No Action duloxetine 60 mg capsule,delayed release(DR/EC) 60 mg PO DAILY Qty: 90 1RF (DME) pen needle, diabetic [Pen Needle] 30 gauge x 5/16 needle See Rx Instructions .Route Qty: 100 0RF Rx Instructions: As directed acetaminophen 500 mg tablet 1,000 mg PO Q6H PRN insulin glargine [Lantus Solostar U-100 Insulin] 100 unit/mL (3 mL) insulin pen 35 unit SUBCUT QAM Qty: 15 5RF Rx Instructions: HOLD if < 4 mmol glucose ketoconazole 2 % cream 1 applic topical DAILY PRN (Reason: yeast infection) Qty: 60 4RF (DME) Omnipod 5 Intro(G6/[id number]) Cartridge See Rx Instructions .Route Qty: 1 0RF Rx Instructions: As directed (DME) Omnipod 5 (G6/Chava 2 Plus) Cartridge See Rx Instructions .Route Qty: 5 6RF Rx Instructions: As directed (DME) FreeStyle Chava 2 Plus Sensor Device See Rx Instructions .Route Qty: 2 6RF Rx Instructions: As directed buspirone 5 mg tablet 5 mg PO TID Qty: 90 6RF insulin lispro [Humalog U-100 Insulin] 100 unit/mL solution 65 unit SUBCUT USEASDIRECTD Qty: 15 3RF Rx Instructions: Humalog via insulin pump at 65 units per day. tirzepatide 5 mg/0.5 mL pen injector 5 mg SUBCUT QWEEK Qty: 2 0RF oxycodone 5 mg tablet 5 mg PO DAILY PRN (Reason: pain) Qty: 5 0RF meloxicam 15 mg tablet 15 mg PO DAILY fluoxetine 20 mg tablet 20 mg PO DAILY glipizide 10 mg tablet 10 mg PO BID lisinopril 40 mg tablet 40 mg PO DAILY ketoconazole 2 % shampoo 1 applic topical 2XW PRN aspirin 81 mg tablet,delayed release (DR/EC) 81 mg PO DAILY quetiapine 50 mg tablet 50 mg PO BEDTIME PNV #[id number] acid-omega3 1 cap PO DAILY fluticasone propion-salmeterol [Wixela Inhub] 250-50 mcg/dose blister with device 1 inh inhalation BID albuterol sulfate 90 mcg/actuation HFA aerosol inhaler 1 - 2 puff inhalation Q4H PRN (Reason: dyspnea) codeine-guaifenesin 10-100 mg/5 mL liquid 10 ml PO Q4-6H PRN ipratropium-albuterol 0.5 mg-3 mg(2.5 mg base)/3 mL solution for nebulization 3 ml inhalation Q6H PRN magnesium oxide 400 mg magnesium tablet 400 mg PO DAILY PRN colestipol 1 gram tablet 1 g PO BID propranolol 20 mg tablet 20 mg PO BEDTIME rosuvastatin 40 mg tablet 40 mg PO DAILY Patient Comments: All the medicines I'm taking in this hospital is in my record. potassium chloride 10 mEq tablet extended release 10 meq PO Q OTHER DAY amlodipine 10 mg tablet 10 mg PO DAILY diclofenac sodium 75 mg tablet,delayed release (DR/EC) 75 mg PO BID clobetasol 0.05 % ointment 1 applic topical DAILY Referrals: Ellie Elias DO [Primary Care Provider, Family Practice] Stand Alone Forms: Patient Portal/API
[2025-02-25] MEDS: droPERidol 2.5 MG/ML VIAL 0.625 MG IV (13:48)
[2025-02-25 14:53] LABS: Appearance Urine UA CLEAR; Bilirubin Urine UA NEGATIVE (NEGATIVE); Color Urine UA YELLOW; Glucose Urine UA NEGATIVE (Negative); Ketones Urine UA TRACE (NEGATIVE); Leukocyte Esterase Urine UA 2+ (NEGATIVE); Nitrite Urine UA POSITIVE (Negative); Occult Blood Urine UA NEGATIVE (Negative); Protein Urine UA NEGATIVE (Negative); Specific Gravity Urine UA 1.025 (1.000-1.035); Urobilinogen Urine UA 1.0 E.U./dL (0.2)
[2025-02-25 14:54] LABS: pH Urine UA 5.5 (4.5-8.0)
[2025-02-25 14:56] LABS: Culture Indicated Urine Specimen Cultured
--- NOTE | 2025-02-25 14:56 | PC.NURSE ---
patient states nausea is gone.
--- NOTE | 2025-02-25 14:59 | PC.NURSE ---
patient reports incontinence, when asked for a sample patient agreeable to straight catheter, tolerated well.
[2025-02-25] MEDS: cefTRIAXone 2,000 MG in SODIUM CHLORIDE 0.9% 100 ML 200 MG IV (16:13)
--- NOTE | 2025-02-25 16:28 | CM.SWNOTE ---
ED MEDIA MANAGER Note RN requests assistance in setting up Medicaid transport upon discharge. MEDIA MANAGER calls [facility] and sets up Medicaid taxi for patient upon d/c from the ED. Transportation is [facility]. Transportation is confirmed and set up through [facility]. Plan: patient to d/c via Medicaid transport upon medical clearance, patient to f/u with PCP. Margoth Guidry, [employer]
== END 2025-02-25 16:57 | disposition home or self-care (01) ==
PROVIDERS: Emergency Provider Emergency Medicine; PCP Family Medicine
DX: R11.2 Nausea with vomiting, unspecified (principal); N30.00 Acute cystitis without hematuria
CPT/HCPCS: 36415; 51701; 73660; 80053; 81001; 82805; 82962; 83690; 84443; 85025; 85651; 86140; 87077; 87086; 87186; 87637; 96361; 96365; 96375; 99284; J0696; J1790

== ENCOUNTER 2025-03-06 03:35 | Emergency (ER) | payer MEDICARE, MEDICAID, SELFPAY ==
[2023-10-11 02:16] VITALS: BMI 41.8
[2025-03-06 03:35] VITALS: BP 134/63; PULSE 83; RESP 18; TEMP 36.6; O2SAT 95; BMI 40.6
--- NOTE | 2025-03-06 03:35 | PC.NURSE ---
see triage note for details, pt denies any cramping
--- NOTE | 2025-03-06 03:37 | ED.ABDPAIN ---
HPI - Abdominal Pain General Chief Complaint: Nausea/Vomiting/Diarrhea Stated Complaint: diarrhea & weakness History of Present Illness HPI narrative: 79-year-old female history of hypertension, type 2 diabetes, constipated for the last 8 days for which she has started to take milk of magnesia in the past 24 hours she has had numerous bouts of diarrhea for which she is now lightheaded dizzy and dehydrated. Other than what is stated 14 point review of system is negative. Related Data Home Medications ?Medication ?Instructions ?Recorded ?Confirmed rosuvastatin 40 mg tablet 40 mg PO DAILY 06/15/23 03/06/25 amlodipine 10 mg tablet 10 mg PO DAILY 09/27/23 03/06/25 clobetasol 0.05 % topical ointment 1 applic topical DAILY 09/27/23 03/06/25 diclofenac sodium 75 mg 75 mg PO BID 09/27/23 03/06/25 tablet,delayed release albuterol sulfate 90 mcg/actuation 1 - 2 puff inhalation Q4H PRN 09/03/24 03/06/25 aerosol inhaler dyspnea aspirin 81 mg tablet,delayed 81 mg PO DAILY 09/03/24 03/06/25 release codeine 10 mg-guaifenesin 100 mg/5 10 ml PO Q4-6H PRN 09/03/24 02/27/25 mL oral liquid fluticasone 250 mcg-salmeterol 50 1 inh inhalation BID 09/03/24 03/06/25 mcg/dose blistr powdr for inhalation (Wixela Inhub) ipratropium 0.5 mg-albuterol 3 mg 3 ml inhalation Q6H PRN shortness 09/03/24 03/06/25 (2.5 mg base)/3 mL nebulization of breath soln ketoconazole 2 % shampoo 1 applic topical 2XW PRN itching 09/03/24 03/06/25 acetaminophen 500 mg tablet 1,000 mg PO Q6H PRN pain (scale 10/15/24 03/06/25 score 1-3) colestipol 1 gram tablet 1 g PO BID 12/18/24 02/27/25 hydrocodone 5 mg-acetaminophen 325 1 tab PO TID PRN pain (scale score 03/06/25 03/06/25 mg tablet 4-6) insulin glargine 100 unit/mL (3 40 unit SUBCUT QAM 03/06/25 03/06/25 mL) subcutaneous pen (Lantus Solostar U-100 Insulin) Previous Rx's ?Medication ?Instructions ?Recorded pen needle, diabetic 30 gauge x #100 ea 10/08/2412/19 (Pen Needle) oxycodone 5 mg tablet 5 mg PO DAILY PRN pain #5 tabs 11/20/24 ketoconazole 2 % topical cream 1 applic topical DAILY PRN yeast 12/15/24 infection #60 grams blood-glucose sensor (FreeStyle #2 ea 12/23/24 Chava 2 Plus Sensor device) insulin pump cart,auto,BT,G6/L #5 ea 12/23/24 (Omnipod 5 (G6/Chava 2 Plus) subcutaneous cartridge) insulin pump cartridge,auto #1 ea 12/23/24 dose,BT,G6/L2 with controller subcutaneous (Omnipod 5 Intro Kit(G6/Hmrzi4Kenx) subcutaneous cartridge) buspirone 5 mg tablet 5 mg PO TID #90 tabs 01/23/25 duloxetine 60 mg capsule,delayed 60 mg PO DAILY #90 caps 02/11/25 release fluoxetine 20 mg tablet 20 mg PO DAILY #30 tabs 02/27/25 glipizide 10 mg tablet 10 mg PO BID #60 tabs 02/27/25 lisinopril 40 mg tablet 40 mg PO DAILY #30 tabs 02/27/25 vitamin with calcium 1 tab PO DAILY #30 tabs 02/27/25 no.72-iron 27 mg-folic acid 1 mg tablet ( Vitamins Plus Low Iron) propranolol 20 mg tablet 20 mg PO BEDTIME #30 tabs 02/27/25 quetiapine 50 mg tablet 50 mg PO BEDTIME #20 tabs 02/27/25 tirzepatide (weight loss) 7.5 7.5 mg (0.5 mL) SUBCUT QWEEK #2 mL 02/27/25 mg/0.5 mL subcutaneous pen injector ondansetron 4 mg disintegrating 4 mg PO Q6H PRN nausea and 03/02/25 tablet vomiting #14 tabs insulin lispro 100 unit/mL 65 unit (0.65 mL) SUBCUT 03/03/25 subcutaneous solution (Humalog USEASDIRECTD to use with insulin U-100 Insulin) pump #15 mL Allergies Allergy/AdvReac Type Severity Reaction Status Date / Time morphine AdvReac Nightmare Verified 02/27/25 09:18 Review of Systems Review of Systems ROS Unobtainable: All systems reviewed & are unremarkable except as noted in HPI and below Patient History Medical History (Updated 03/06/25 @ 04:07 by Chandler West DO) Insomnia, unspecified MDD (major depressive disorder), recurrent episode, moderate PTSD (post-traumatic stress disorder) Fatigue Sepsis Dyspnea on exertion Acute reaction to situational stress Unintentional weight loss Nausea & vomiting Secondhand smoke exposure Lichen sclerosus et atrophicus Microscopic hematuria Urge incontinence Hx of migraine headaches History of depression History of chronic urinary tract infection History of arthritis Peripheral neuropathy Depression Hyperlipidemia Fibromyalgia Hypertension Lower leg edema Diabetes Surgical History Hx of abdominal hysterectomy Hx of breast biopsy Hx of total knee replacement Hx of cholecystectomy Hx of appendectomy Family History Mother Cancer CVA (cerebral vascular accident) Hyperlipidemia Hypertension Father Hypertension Hyperlipidemia CAD (coronary artery disease) Sister Hyperlipidemia Hypertension Diabetes mellitus Multiple kidney stones Migraines Brother Hyperlipidemia Hypertension Migraines Eczema Social History marital status: number of children: 4 household members: none lives independently: Yes alcohol intake: current caffeine: Yes Type(s) of exercise: walking frequency: 3-4 times per week duration: 15-30 minutes/day alcohol intake frequency: holidays/special occasions only Exam Narrative Exam Narrative: GENERAL: [79] year old patient appears stated age. Well-developed patient, in mild distress. HEAD: Atraumatic. Normocephalic. EYES: Pupils equal round and reactive. Extraocular motions intact. No scleral icterus. No injection or drainage. ENT: Nose without bleeding, purulent drainage. Throat without erythema, tonsillar hypertrophy or exudate. Airway patent. NECK: Trachea midline. Non tender CARDIOVASCULAR: Regular rate and rhythm without murmurs, gallops, or rubs. RESPIRATORY: Clear to auscultation. Breath sounds equal bilaterally. No wheezes, rales, or rhonchi. GASTROINTESTINAL: Abdomen soft, non-tender, nondistended. EXTREMITIES: No edema or joint tenderness. BACK: Nontender without deformity or crepitance. No flank tenderness. NEURO: AOx3. SKIN: No rash or erythema of visible areas Initial Vital Signs Initial Vital Signs: Vital Signs Temperature 98 F 03/06/25 03:35 Pulse Rate 83 03/06/25 03:35 Respiratory Rate 18 03/06/25 03:35 Blood Pressure 134/63 03/06/25 03:35 Pulse Oximetry 95 03/06/25 03:35 Oxygen Delivery Method Room Air 03/06/25 03:35 Course Orders Ordered: ED Orders 03/06/25 04:10 CBC Auto Diff [Complete Blood Count AUTO DIFF] Stat CMP [Comprehensive Metabolic Panel] Stat Lipase Stat Ondansetron HCl (Ondansetron 4 Mg/2 Ml Inj) 4 mg IV NOW PRN PRN Reason: Nausea And Vomiting Ondansetron HCl (Ondansetron 4 Mg Odt) 4 mg PO NOW PRN PRN Reason: Nausea And Vomiting Discontinued Medications Lactated Ringer's (Lactated Ringers) 1,000 mls @ 1,000 mls/hr IV BOLUS ONE Stop: 03/06/25 04:51 Last Infusion: 03/06/25 06:33 Dose: Infused Documented By: Admin: 03/06/25 04:51 Dose: 1,000 mls/hr Documented By: RUY Vital Signs Vital signs: Vital Signs - 8 hr 03/06/25 03:35 03/06/25 05:41 03/06/25 05:41 Temperature 98 F Pulse Rate 83 82 81 Respiratory Rate 18 16 Blood Pressure 134/63 135/63 Pulse Oximetry 95 95 95 Oxygen Delivery Method Room Air Room Air 03/06/25 06:00 03/06/25 06:00 03/06/25 06:30 Temperature Pulse Rate 80 80 Respiratory Rate Blood Pressure 134/63 Pulse Oximetry 94 93 Oxygen Delivery Method 03/06/25 06:30 Temperature Pulse Rate Respiratory Rate Blood Pressure 132/61 Pulse Oximetry Oxygen Delivery Method MDM - Abdominal Pain Lab Data 03/06/25 04:10 03/06/25 04:10 Labs: Lab Results 03/06/25 Range/Units 04:10 WBC 8.5 (4.5-11.0) X10^3/uL RBC 4.39 (4.0-5.2) X10^6/uL Hgb 13.5 (12.0-16.0) g/dL Hct 40.0 (36-46) % MCV 91.2 (80-100) fL MCH 30.8 (26-34) PG MCHC 33.7 (30-36) % RDW 13.0 (11.6-14.8) % Plt Count 230 (150-400) X10^3/uL Neut % (Auto) 78.9 H (50-75) % Lymph % (Auto) 11.9 L (25-40) % [place] % (Auto) 7.0 (3-14) % Eos % (Auto) 1.7 L (2-4) % Baso % (Auto) 0.5 (0-2) % Neut # (Auto) 6700 (1093-6136) /uL Lymph # (Auto) 1000 L (3736-1372) /uL [place] # (Auto) 600 (0-900) /uL Eos # (Auto) 100 (0-450) /uL Baso # (Auto) 0 (0-100) /uL Sodium 134 L (137-145) mmol/L Potassium 4.3 (3.4-5.1) mmol/L Chloride 102 (98-107) mmol/L Carbon Dioxide 23 (22-32) mmol/L BUN 22 H (7-17) mg/dL Creatinine 1.16 H (0.52-1.04) mg/dL Estimated GFR 49 L (>60) mL/min BUN/Creatinine Ratio 19.0 (6-22) Glucose 173 H (70-99) mg/dL Calcium 8.7 (8.4-10.2) mg/dL Total Bilirubin 0.8 (0.2-1.3) mg/dL AST 45 H (14-36) IU/L ALT 33 (<35) IU/L Alkaline Phosphatase 95 (38-126) U/L Total Protein 7.3 (6.3-8.2) g/dL Albumin 4.1 (3.5-5.0) g/dL Globulin 3.2 (1.7-4.1) g/dL Albumin/Globulin Ratio 1.3 (1.0-2.8) Lipase 68 (23-300) U/L ECG Data Interpretation: ? MDM Narrative Medical decision making narrative: All lab work, vital signs, nurse triage note, medication list, previous ER visits, and all imaging studies reviewed. Patient given IV fluids here. Normal WBC, hemoglobin 13.2, sodium 134 potassium 4.3 BUN 22 creatinine 1.16 glucose 173 lipase 68. Differential diagnosis constipation, diarrhea, viral, dehydration, electrolyte derangement. Keep hydrated follow up PCP next week if no improvement in symptoms. Discharge Plan Departure Patient Disposition: Home Clinical Impression: Dehydration Diarrhea Qualifiers: Diarrhea type: unspecified type Qualified Code(s): R19.7 - Diarrhea, unspecified Instructions: DI for Dehydration -- Adult Activity Restrictions/Additional Instructions: Return with new or worsening symptoms. Keep hydrated. Follow up PCP 1-2 weeks if no improvement in symptoms. Prescriptions: No Action duloxetine 60 mg capsule,delayed release(DR/EC) 60 mg PO DAILY Qty: 90 1RF (DME) pen needle, diabetic [Pen Needle] 30 gauge x 5/16 needle See Rx Instructions .Route Qty: 100 0RF Rx Instructions: As directed acetaminophen 500 mg tablet 1,000 mg PO Q6H PRN (Reason: pain (scale score 1-3)) ketoconazole 2 % cream 1 applic topical DAILY PRN (Reason: yeast infection) Qty: 60 4RF (DME) Omnipod 5 Intro(G6/Mabqi3Pinq) Cartridge See Rx Instructions .Route Qty: 1 0RF Rx Instructions: As directed (DME) Omnipod 5 (G6/Chava 2 Plus) Cartridge See Rx Instructions .Route Qty: 5 6RF Rx Instructions: As directed (DME) FreeStyle Chava 2 Plus Sensor Device See Rx Instructions .Route Qty: 2 6RF Rx Instructions: As directed buspirone 5 mg tablet 5 mg PO TID Qty: 90 6RF glipizide 10 mg tablet 10 mg PO BID Qty: 60 11RF quetiapine 50 mg tablet 50 mg PO BEDTIME Qty: 20 11RF lisinopril 40 mg tablet 40 mg PO DAILY Qty: 30 11RF fluoxetine 20 mg tablet 20 mg PO DAILY Qty: 30 11RF propranolol 20 mg tablet 20 mg PO BEDTIME Qty: 30 11RF Vitamin Plus Low Iron 27 mg iron- 1 mg tablet 1 tab PO DAILY Qty: 30 11RF ondansetron 4 mg tablet,disintegrating 4 mg PO Q6H PRN (Reason: nausea and vomiting) Qty: 14 11RF insulin lispro [Humalog U-100 Insulin] 100 unit/mL solution 65 unit SUBCUT USEASDIRECTD Qty: 15 3RF Rx Instructions: Humalog via insulin pump at 65 units per day. oxycodone 5 mg tablet 5 mg PO DAILY PRN (Reason: pain) Qty: 5 0RF tirzepatide (weight loss) 7.5 mg/0.5 mL pen injector 7.5 mg SUBCUT QWEEK Qty: 2 0RF ketoconazole 2 % shampoo 1 applic topical 2XW PRN (Reason: itching) aspirin 81 mg tablet,delayed release (DR/EC) 81 mg PO DAILY fluticasone propion-salmeterol [Wixela Inhub] 250-50 mcg/dose blister with device 1 inh inhalation BID albuterol sulfate 90 mcg/actuation HFA aerosol inhaler 1 - 2 puff inhalation Q4H PRN (Reason: dyspnea) codeine-guaifenesin 10-100 mg/5 mL liquid 10 ml PO Q4-6H PRN ipratropium-albuterol 0.5 mg-3 mg(2.5 mg base)/3 mL solution for nebulization 3 ml inhalation Q6H PRN (Reason: shortness of breath) colestipol 1 gram tablet 1 g PO BID rosuvastatin 40 mg tablet 40 mg PO DAILY Patient Comments: All the medicines I'm taking in this hospital is in my record. amlodipine 10 mg tablet 10 mg PO DAILY diclofenac sodium 75 mg tablet,delayed release (DR/EC) 75 mg PO BID clobetasol 0.05 % ointment 1 applic topical DAILY hydrocodone-acetaminophen 5-325 mg tablet 1 tab PO TID PRN (Reason: pain (scale score 4-6)) insulin glargine [Lantus Solostar U-100 Insulin] 100 unit/mL (3 mL) insulin pen 40 unit SUBCUT QAM Rx Instructions: HOLD if < 4 mmol glucose Referrals: Ellie Elias DO [Primary Care Provider, Family Practice] Stand Alone Forms: Patient Portal/API
[2025-03-06 04:26] LABS: Add Manual Diff / Slide Review NO; Hematocrit 40.0 % (36-46); Hemoglobin 13.5 g/dL (12.0-16.0); Lymphocytes Absolute Auto 1000 /uL (1100-4500); Mean Corpuscular HGB Conc 33.7 % (30-36); Mean Corpuscular Hemoglobin 30.8 PG (26-34); Mean Corpuscular Volume 91.2 fL (80-100); Platelet Count 230 X10^3/uL (150-400)
[2025-03-06 04:38] LABS: Lipase 68 U/L (23-300)
[2025-03-06 04:39] LABS: Alanine Aminotransferase 33 IU/L (<35); Albumin 4.1 g/dL (3.5-5.0); Albumin Globulin Ratio 1.3 (1.0-2.8); Alkaline Phosphatase 95 U/L (38-126); Blood Urea Nitrogen 22 mg/dL (7-17); Calcium 8.7 mg/dL (8.4-10.2); Carbon Dioxide 23 mmol/L (22-32); Chloride 102 mmol/L (98-107); Estimated Glomerular Filt Rate 49 mL/min (>60); Globulin 3.2 g/dL (1.7-4.1); Glucose 173 mg/dL (70-99); HEMOLYSIS 15 (0-50); Potassium 4.3 mmol/L (3.4-5.1); Sodium 134 mmol/L (137-145); Total Protein 7.3 g/dL (6.3-8.2)
[2025-03-06] MEDS: LACTATED RINGERS 1,000 ML 1000 ML IV (04:51)
[2025-03-06 05:41] VITALS: BP 135/63; PULSE 81; PULSE 82; RESP 16; O2SAT 95
[2025-03-06 06:00] VITALS: BP 134/63; PULSE 80; O2SAT 94
[2025-03-06 06:30] VITALS: BP 132/61; PULSE 80; O2SAT 93
== END 2025-03-06 07:09 | disposition home or self-care (01) ==
PROVIDERS: Emergency Provider Family Medicine; PCP Family Medicine
DX: E86.0 Dehydration (principal); R19.7 Diarrhea, unspecified
CPT/HCPCS: 36415; 80053; 83690; 85025; 96360; 99283; 99284

== ENCOUNTER → 2025-04-16 12:50 | Outpatient (CLI) | payer MEDICARE, MEDICAID, SELFPAY ==
[2025-04-01 23:00] VITALS: BMI 44.1
--- NOTE | 2025-04-16 13:37 | DIAB.MNTFU ---
Follow-up Diabetes Medical Nutrition Therapy Assessment Name: Ninfa Hercules Date: 04/16/25 Time: 105-120p Dx: Type II Diabetes Ninfa presents for DM follow-up. Continues on OP5 pump therapy. States she is unsure how much to bolus for sometimes. Has been using bolus entry and not using carb and sensor info. We had programmed custom foods with small, med, large, and snack options for CHO content, though she has not yet started using it. Late to bolus per reports. Waits until BG rises to bolus, resulting in higher BG. Endorses improved BM. states constipation was blocking bladder from fully emptying, resulting in repeat UTI. BM 1-2x per day now with laxative use. Changing OP5 and CGM with success. TDD: 22.2u Self-Monitoring Blood Glucose: Increased hyperglycemia with late boluses and not currently using CHO counts or correction bolusing. TIR: 2% very high 40% high 58% in range 0% low avmg/dl GMI: % std dev: 36 mg/dl variance 20.5% Last TIR: 0% very high 0% high 88% in range 12% low avmg/dl GMI: % std dev: mg/dl variance % Diabetes Medications: 10mg Glipizide BID 2.5mg Mounjaro weekly Lispro via pump Pertinent Labs: HGA1c: 10% 09/2024 6.2% 02/2025 Past Medical History: (Last Updated 09/03/24 @ 13:03 by Ellie Elias DO) Acute reaction to situational stress Depression Diabetes Dyspnea on exertion Fatigue Fibromyalgia History of arthritis History of chronic urinary tract infection History of depression Hx of migraine headaches Hyperlipidemia Hypertension Lichen sclerosus et atrophicus Lower leg edema Microscopic hematuria Nausea & vomiting Peripheral neuropathy Secondhand smoke exposure Sepsis Unintentional weight loss Urge incontinence Nutrition Rx: 30-45g CHO per meal; 15-30g CHO per snack Nutrition Diagnosis: -Nutrition and food related knowledge deficit r/t needing more info on how much CHO to bolus for aeb pt report and bolusing behaviors Intervention: This participant was very receptive. Provided appropriate educational handouts. Discussed the following topics: CHO contents of food, bolusing pre meal, using correction and custom foods in OP5 Constipation MNT Created SMART goals for patient self-care and success. Goals: Wear new pump and CGM- met Bolus right before eating- new Use custom foods- new Follow-up: [facility] follow-up in 3-4 weeks Renay Griffin RDN, VASYL Certified Diabetes Care and Habitat Biologist P: [phone] Thank you for this referral
== END ==
PROVIDERS: PCP Family Medicine; Referring Provider Family Medicine
DX: E11.65 Type 2 diabetes mellitus with hyperglycemia (principal); Z96.41 Presence of insulin pump (external) (internal); Z71.3 Dietary counseling and surveillance; Z79.84 Long term (current) use of oral hypoglycemic drugs; Z79.4 Long term (current) use of insulin; Z79.85 Long-term (current) use of injectable non-insulin antidiabetic drugs
CPT/HCPCS: 97803

== ENCOUNTER → 2025-04-22 12:05 | Outpatient (CLI) | payer MEDICARE, MEDICAID, SELFPAY ==
[2025-04-01 23:00] VITALS: BMI 44.1
--- NOTE | 2025-04-22 12:07 | DI.ECHO.S_ITS ---
[facility] : : [address] : [place] : : [id number] : : Phone: [phone] Echocardiogram Report + + :Name: SUMMER BANKS Study Date: 04/22/2025 Height: 68 in : :[facility] ReadingLocation: Weight: 273 lb : : Gender: Female BSA: 2.3 m2 : :: 1945 Age: 79 yrs BP: 132/78 mmHg: :Reason For Study: WORSENING DYSPNEA ON EXERTION : :Ordering Physician: KERLINE, : :LINDA Performed By: Lizy Cruz : :Referring: LINDA CHURCHILL : + + Interpretation Summary The study quality was technically difficult. The ejection fraction is estimated to be 70-75%. Normal diastolic function. The right ventricle is normal in size and function. No significant valvular abnormalities. Pulmonary artery pressures cannot be estimated because of the lack of a measurable TR jet velocity but the IVC suggests a CVP of around 3 mmHg. Compared to the prior study 07/06/2023, no change. Procedure: A two-dimensional transthoracic echocardiogram with color flow and Doppler was performed. The study quality was technically difficult. Comparison is made with the echocardiogram of 07/06/2023. The patient was in sinus rhythm with heart rates between 86-97 bpm during the exam. Left Ventricle: The left ventricular cavity is small. There is normal left ventricular wall thickness. The ejection fraction is estimated to be 70-75%. The left ventricle is hyperdynamic. Normal diastolic function. Right Ventricle: The right ventricle is normal in size and function. Atria: The left atrial size is normal. Right atrial size is normal. There is no Doppler evidence for an interatrial shunt. Mitral Valve: The mitral valve leaflets appear to open well. There is trace mitral regurgitation. Aortic Valve: The aortic valve opens well. There is no aortic valve stenosis. No aortic regurgitation is present. Tricuspid Valve: The tricuspid valve leaflets are thin and pliable. No tricuspid regurgitation. Pulmonary artery pressures cannot be estimated because of the lack of a measurable TR jet velocity but the IVC suggests a CVP of around 3 mmHg. Pulmonic Valve: The pulmonic valve is not well visualized. There is no pulmonic valvular regurgitation. Great Vessels: The aortic root is normal size. The ascending aorta could not be visualized. The IVC is of normal diameter and collapses greater than 50% with a sniff. This suggests a low right atrial pressure of 3 mm Hg. Pericardium/ Pleura There is no pericardial effusion. There is no pleural effusion. MMode/2D Measurements & Calculations LVIDd: 3.7 cm LVOT diam: 2.0 cm LVIDs: 2.4 cm Ao root diam: 3.3 cm FS: 34.8 % Ao Arch Diam (Prox Trans): 2.8 cm IVSd: 0.82 cm LVPWd: 1.0 cm LV . diameter/BSA (cm/m^2): 1.6 LV sys. diameter/BSA (cm/m^2): 1.0 LA A2 area: 19.8 cm2 RA long axis: 4.6 cm LA A4 area: 13.1 cm2 RA area: 10.6 cm2 LA length (vol): 4.9 cm RA vol: 21.1 ml LA vol: 45.3 ml RA : 9.0 ml/m2 LA vol index: 19.4 ml/m2 IVC diam: 0.93 cm RVD1 (basal): 2.8 cm RVD2 (mid): 2.9 cm TAPSE: 1.7 cm Doppler Measurements & Calculations Ao V2 max: 148.5 cm/sec LVOT Max Cirilo: 122.1 cm/sec Ao V2 mean: 94.5 cm/sec LV V1 max P.0 mmHg Ao max P.8 mmHg LV V1 VTI: 18.9 cm Ao mean P.1 mmHg DONG(I,D): 2.5 cm2 Ao V2 VTI: 22.7 cm DONG(V,D): 2.5 cm2 sev ratio: 0.84 DONG indexed to BSA (cm^2/m^2): 1.1 MV E max cirilo: 57.5 cm/sec PA V2 max: 119.2 cm/sec MV A max cirilo: 89.1 cm/sec PA V2 mean: 77.5 cm/sec MV E/A: 0.65 PA mean P.8 mmHg Med Peak E' Cirilo: 10.3 cm/sec PA pr(Accel): 31.0 mmHg E/E' med: 5.6 Lat Peak E' Cirilo: 7.9 cm/sec E/E' lat: 7.3 E/e' average: 6.4 MV dec time: 0.25 sec SV(LVOT): 57.1 ml Reading Physician:02:50 PM
--- NOTE | 2025-04-22 12:07 | DI.US.S_ITS ---
PROCEDURE: US THYROID INDICATIONS: thyroid nodule monitoring TECHNIQUE: Real-time scanning was performed of the thyroid gland, with image documentation. COMPARISON: [facility], US, US THYROID, 12/20/2023, 13:39. FINDINGS: Thyroid: Right lobe measures 6.5 x 2.5 x 4.1 cm. Left lobe measures 6.0 x 2.4 x 2.8 cm. Isthmus is 0.9 cm thick. Echotexture is heterogenous. Nodule number: 1 Location: Right superior Size: 1.7 x 1.5 x 1.1 cm, increased in size from 1.1 x 1.2 x 1.0 centimeter. Composition: Solid Echogenicity: Hypoechoic Shape: wider than tall. Margins: Smooth Echogenic foci: Peripheral calcifications. Total points: 6 ACR TI-RADS category: 4---FNA recommended Nodule number: 2 Location: Right inferior Size: 2.1 x 1.7 x 1.5 cm, unchanged in size. Composition: Solid Echogenicity: Hypoechoic Shape: wider than tall. Margins: Smooth Echogenic foci: None Total points: 4 ACR TI-RADS category: 4--FNA recommended Nodule number: 3 Location: Left mid inferior Size: 1.0 x 1.2 x 0.8 cm, previously 0.8 x 0.9 x 0.6 centimeter. Composition: Solid Echogenicity: Hypoechoic Shape: wider than tall. Margins: Smooth margins Echogenic foci: None Total points: 4 ACR TI-RADS category: 4--continued follow-up recommended Nodule number: 4 Location: Left inferior Size: 1.0 x 1.0 x 0.8 cm, previously 0.9 x 0.8 x 0.7. Composition: Solid Echogenicity: Hypoechoic Shape: wider than tall. Margins: Smooth Echogenic foci: None Total points: 4 ACR TI-RADS category: 4--continued follow-up recommended IMPRESSION: Nodules for which FNA is recommended listed above. In particular the right superior thyroid nodule has increased in size and demonstrates calcifications which are suspicious. ACR TI-RADS definitions and recommendations: TI-RADS 1 (benign): 0 points. FNA not needed. TI-RADS 2 (not suspicious): 2 points. FNA not needed. TI-RADS 3: 3 points. * FNA if 2.5 cm or larger, follow up if 1.5 cm or larger (at 1, 3, and 5 years). TI-RADS 4: 4-6 points. * FNA if 1.5 cm or larger, follow up if 1 cm or larger (at 1, 2, 3, and 5 years). TI-RADS 5: 7 points or more. * FNA if 1 cm or larger, follow up if 0.5 cm or larger (every year for 5 years). Dictated by: Steve Dior M.D. on 04/22/2025 at 16:11 Approved by: Steve Dior M.D. on 04/22/2025 at 16:29
== END ==
LOC: ECHO 12:06
PROVIDERS: PCP Family Medicine; Referring Provider Family Medicine; Visit Provider Family Medicine
DX: N18.9 Chronic kidney disease, unspecified (principal); I12.9 Hypertensive chronic kidney disease with stage 1 through stage 4 chronic kidney disease, or unspecified chronic kidney disease; E04.2 Nontoxic multinodular goiter; R79.89 Other specified abnormal findings of blood chemistry; R42 Dizziness and giddiness; R06.09 Other forms of dyspnea; Z86.39 Personal history of other endocrine, nutritional and metabolic disease; Z91.89 Other specified personal risk factors, not elsewhere classified
CPT/HCPCS: 76536; 93306

== ENCOUNTER 2025-04-25 19:54 | Observation (INO) | payer MEDICARE, MEDICAID, SELFPAY ==
[2025-04-01 23:00] VITALS: BMI 44.1
[2025-04-25] VITALS (10 sets, daily range): BP systolic 102–139; BP diastolic 57–83; PULSE 100–115; RESP 10–24; TEMP 36.9; O2SAT 94–97
--- NOTE | 2025-04-25 20:16 | DI.RAD.S_ITS ---
PROCEDURE: XR CHEST 1V INDICATIONS: Shortness of breath TECHNIQUE: One view of the chest was acquired. COMPARISON: [facility], , XR CHEST 1V, 03/17/2025, 15:14. [facility], CR, XR CHEST 1V, 04/01/2025, 17:44. FINDINGS: Surgical changes and devices: None. Lungs and pleura: Lungs are clear. No pleural effusions or pneumothorax. Mediastinum: The cardiac contours are within normal limits. The aorta demonstrates calcification and tortuosity. Bones and chest wall: No suspicious bony lesions. Age-appropriate bony degenerative changes are seen. Overlying soft tissues appear unremarkable. IMPRESSION: Portable chest within normal limits for age. Dictated by: Ryan Garcia M.D. on 04/25/2025 at 19:48 Approved by: Ryan Garcia M.D. on 04/25/2025 at 19:48
--- NOTE | 2025-04-25 20:17 | EKG_ITS ---
[address] [address] Test Date: 2025-04-25 Pat Name: Ninfa Hercules Department: [facility] Room: Gender: Female Meal Attendant: LIZANDRO : 1945 Requested By: Order Number: [id number] Reading MD: Chandler Velázquez MD Measurements Intervals [place] Rate: 101 P: 66 WI: 150 QRS: 1 QRSD: 76 T: 57 QT: 360 QTc: 466 Interpretive Statements Sinus tachycardia Electronically Signed On 04-26-2025 14:44:19 PDT by Chandler Velázquez MD
[2025-04-25] MEDS: methylPREDNISolone succ 125 MG/2 ML VIAL IV (20:48)
--- NOTE | 2025-04-25 21:03 | ED_ITS ---
HPI - SOB/Dyspnea General Chief Complaint: Shortness of Breath/Dyspnea Stated Complaint: SOB Time Seen by Provider: 04/25/25 19:55 Source: patient and EMS Mode of arrival: EMS Limitations: physical limitation History of Present Illness HPI Narrative: 79-year-old female resident at [facility], history of diabetes mellitus on insulin pump, history of asthma, uses inhalers and nebulizers at home, no chronic oxygen, no recent systemic steroids, has dry cough and increasing shortness of breath since this morning. Arrival by EMS, given long breathing treatment en route, feels improved with her breathing. No steroid given prehospital per patient. No known exposure to persons with COVID recently. She has had COVID 3 different times but not recent. She denies chest pain. Denies nausea or vomiting. Denies abdominal pain, painful or frequent urination. No recent diarrhea or red or black stools. She is not currently on any oral antibiotics. Related Data Home Medications ?Medication ?Instructions ?Recorded ?Confirmed rosuvastatin 40 mg tablet 40 mg PO DAILY 06/15/2304/07 amlodipine 10 mg tablet 10 mg PO DAILY 09/27/2304/07 clobetasol 0.05 % topical ointment 1 applic topical BI D PRN pain 09/27/23 04/26/25 (scale score 4-6) albuterol sulfate 90 mcg/actuation 1 - 2 puff inhalati on Q4H PRN 09/03/24 04/26/25 aerosol inhaler dyspnea aspirin 81 mg tablet,delayed 81 mg PO DAILY 09/03/24 0 04/26/25 release ipratropium 0.5 mg-albuterol 3 mg 3 ml inhalation Q6H PRN shortness 09/03/24 04/26/25 (2.5 mg base)/3 mL nebulization of breath soln meloxicam 15 mg tablet 15 mg PO DAILY 03/17/2504/07 methocarbamol 500 mg tablet 500 mg PO BID PRN muscle s pasm 03/17/25 04/26/25 acetaminophen 500 mg tablet 1,000 mg PO Q6H PRN fever or pain 04/03/25 04/26/25 wixela fluticasone propionate See Rx Instructions .Rou te .COMPLEX 04/03/25 04/26/25 Previous Rx's ?Medication ?Instructions ?Recorded ketoconazole 2 % topical cream 1 applic topical DAILY PRN yeast 12/15/24 infection #60 grams blood-glucose sensor (FreeStyle #2 ea 12/23/24 Chava 2 Plus Sensor device) insulin pump cart,auto,BT,G6/L #5 ea 12/23/24 (Omnipod 5 (G6/Chava 2 Plus) subcutaneous cartridge) insulin pump cartridge,auto #1 ea 12/23/24 dose,BT,G6/L2 with controller subcutaneous (Omnipod 5 Intro Kit(G6/[id number]) subcutaneous cartridge) duloxetine 60 mg capsule,delayed 60 mg PO DAILY #90 ca ps 02/11/25 release lisinopril 40 mg tablet 40 mg PO DAILY #30 tabs 02/04 12/28 vitamins with calcium 1 tab PO DAILY #30 tabs 02/27/25 no.72-iron 27 mg-folic acid 1 mg tablet ( Vitamins Plus Low Iron) propranolol 20 mg tablet 20 mg PO BEDTIME #30 tabs Held on 04/16/25. Instructions: Home Medication placed on hold at Doctor's office quetiapine 50 mg tablet 50 mg PO BEDTIME #20 tabs ondansetron 4 mg disintegrating 4 mg PO Q6H PRN nausea and 03/02/25 tablet vomiting #14 tabs insulin lispro 100 unit/mL 65 unit (0.65 mL) SUBCUT subcutaneous solution (Humalog USEASDIRECTD to use wit h insulin U-100 Insulin) pump #15 mL glipizide 10 mg tablet 10 mg PO DAILY #60 tabs 03/07 09/30 meclizine 25 mg tablet 25 mg PO TID #20 tabs levothyroxine 50 mcg tablet 50 mcg PO DAILY@0600 #30 t abs 04/05/25 (Synthroid) Held on 04/10/25. Instructions: Home Medication placed on hold at Doctor's office polyethylene glycol 3350 17 gram 17 g PO DAILY #30 ea 04/05/25 oral powder packet (Gavilax) sennosides 8.6 mg tablet (senna) 17.2 mg (2 x 8.6 mg) PO BEDTIME 04/05/25 #60 tabs semaglutide 0.25 mg or 0.5 mg (2 0.25 mg (0.368 mL) WELSH BCUT QWEEK #3 04/10/25 mg/3 mL) subcutaneous pen injector mL (Ozempic) fluticasone propionate 50 1 spray intranasal DAILY #16 grams 04/16/25 mcg/actuation nasal spray,suspension (Flonase Allergy Relief) prednisone 20 mg tablet 40 mg (2 x 20 mg) PO DAILY 5 days 04/25/25 #10 tabs Allergies Allergy/AdvReac Type Severity Reaction Status Date / Time morphine AdvReac Nightmare Verified 04/16/25 07:35 Patient History Medical History Insomnia, unspecified MDD (major depressive disorder), recurrent episode, moderate PTSD (post-traumatic stress disorder) Fatigue Sepsis Dyspnea on exertion Acute reaction to situational stress Unintentional weight loss Nausea & vomiting Secondhand smoke exposure Lichen sclerosus et atrophicus Microscopic hematuria Urge incontinence Hx of migraine headaches History of depression History of chronic urinary tract infection History of arthritis Peripheral neuropathy Depression Hyperlipidemia Fibromyalgia Hypertension Lower leg edema Diabetes Surgical History Hx of abdominal hysterectomy Hx of breast biopsy Hx of total knee replacement Hx of cholecystectomy Hx of appendectomy Family History Mother Cancer CVA (cerebral vascular accident) Hyperlipidemia Hypertension Father Hypertension Hyperlipidemia CAD (coronary artery disease) Sister Hyperlipidemia Hypertension Diabetes mellitus Multiple kidney stones Migraines Brother Hyperlipidemia Hypertension Migraines Eczema Social History marital status: number of children: 4 household members: none lives independently: Yes Smoking Status: Never smoker alcohol intake: current caffeine: Yes Type(s) of exercise: walking frequency: 3-4 times per week duration: 15-30 minutes/day alcohol intake frequency: holidays/special occasions only Exam Narrative Exam Narrative: GENERAL: Well-developed patient, in mild distress. HEAD: Atraumatic. Normocephalic. EYES: Pupils equal round and reactive. Extraocular motions intact. No scleral icterus. No injection or drainage. ENT: Nose without bleeding, purulent drainage. Throat without erythema, tonsillar hypertrophy or exudate. Airway patent. NECK: Trachea midline. Non tender CARDIOVASCULAR: Regular rate and rhythm without murmurs, gallops, or rubs. RESPIRATORY: Clear to auscultation. Breath sounds equal bilaterally. No wheezes, rales, or rhonchi. (had long nebulizer by EMS prior to arrival with reported wheezing) GASTROINTESTINAL: Abdomen soft, non-tender, nondistended. EXTREMITIES: No edema or joint tenderness. BACK: Nontender without deformity or crepitance. No flank tenderness. NEURO: AOx3. Motor functions grossly nonfocal. SKIN: No rash or erythema of visible areas Initial Vital Signs Initial Vital Signs: Vital Signs Pulse Rate 102 H 04/25/25 20:00 Respiratory Rate 24 04/25/25 20:00 Blood Pressure 135/64 04/25/25 20:00 Pulse Oximetry 95 04/25/25 20:00 Course Orders Ordered: Acetaminophen (Acetaminophen 325 Mg Tablet) 650 mg PO Q6H PRN PRN Reason: Fever/Mild Pain (1-3) Albuterol/Ipratropium (Albuterol/Ipratropium 3 Ml Ampul) 3 ml INH [id number] [facility] Last Admin: 04/26/25 13:43 Dose: 3 ml Documented By: CHERI Enoxaparin Sodium (Enoxaparin 40 Mg/0.4 Ml Syringe) 40 mg SUBCUT DAILY [facility] Last Admin: 04/26/25 09:04 Dose: 40 mg Documented By: Dextrose (D10w) 100 mls @ 999 mls/hr IV PRN PRN PRN Reason: Hypoglycemia Sodium Chloride (Normal Saline 0.9%) 1,000 mls @ 100 mls/hr IV CONT [facility] Stop: 05/26/25 17:59 Last Admin: 04/26/25 09:09 Dose: 100 mls/hr Documented By: BG Azithromycin 500 mg/ Sodium (Chloride) 250 mls @ 250 mls/hr IV Q24H [facility] Last Infusion: 04/26/25 14:56 Dose: Infused Documented By: Admin: 04/26/25 13:56 Dose: 250 mls/hr Documented By: BG Insulin Glargine (Insulin Glargine 100 Unit/Ml 3ml Pen) 30 unit SUBCUT DAILY [facility] Insulin Human Lispro (Insulin Lispro 100 Unit/Ml 3ml Vial) 0 unit SUBCUT ACHS [facility]; Protocol Last Admin: 04/26/25 12:09 Dose: 12 unit Documented By: Co-signed By: DAVID Methylprednisolone (Methylprednisolone Succ 125 Mg/2 Ml Vial) 80 mg IV Q8H [facility] Last Admin: 04/26/25 15:19 Dose: 80 mg Documented By: Admin: 04/26/25 09:01 Dose: 80 mg Documented By: BG Naloxone HCl (Naloxone 0.4 Mg/Ml Vial) 0.2 mg IV Q2MIN PRN PRN Reason: Opiate Reversal Ondansetron HCl (Ondansetron 4 Mg/2 Ml Inj) 4 mg IV Q6HR PRN PRN Reason: Nausea And Vomiting Last Admin: 04/26/25 15:21 Dose: 4 mg Documented By: BG Tramadol HCl (Tramadol 50 Mg Tablet) 50 mg PO TID PRN PRN Reason: Pain, Moderate (4-6) Last Admin: 04/26/25 15:22 Dose: 50 mg Documented By: Admin: 04/26/25 09:03 Dose: 50 mg Documented By: Discontinued Medications Acetaminophen (Acetaminophen 325 Mg Tablet) 975 mg PO Q8H PRN PRN Reason: Pain, Mild (1-3) Last Admin: 04/26/25 07:53 Dose: 975 mg Documented By: JEROME Albuterol (Albuterol Hfa Prepack) 1 box MISC DIRECTED ONE Stop: 04/25/25 21:44 Last Admin: 04/25/25 21:55 Dose: 1 box Documented By: BAO Albuterol/Ipratropium (Albuterol/Ipratropium 3 Ml Ampul) 3 ml INH NOW ONE Stop: 04/25/25 20:26 Last Admin: 04/25/25 21:55 Dose: 3 ml Documented By: BAO Doxycycline Hyclate (Doxycycline Hyclate 100 Mg Tablet) 100 mg PO NOW ONE Stop: 04/26/25 03:00 Last Admin: 04/26/25 03:25 Dose: 100 mg Documented By: RUY Lactated Ringer's (Lactated Ringers) 1,000 mls @ 1,000 mls/hr IV BOLUS ONE Stop: 04/26/25 00:55 Last Infusion: 04/26/25 02:25 Dose: Infused Documented By: Admin: 04/26/25 00:25 Dose: 1,000 mls/hr Documented By: Ceftriaxone Sodium 1,000 mg/ (Sodium Chloride) 100 mls @ 200 mls/hr IV NOW ONE Stop: 04/26/25 03:00 Last Infusion: 04/26/25 05:40 Dose: Infused Documented By: Admin: 04/26/25 03:25 Dose: 200 mls/hr Documented By: RUY Sodium Chloride (Normal Saline 0.9%) 1,000 mls @ 1,000 mls/hr IV BOLUS ONE Stop: 04/26/25 03:58 Last Admin: 04/26/25 03:32 Dose: Not Given Documented By: RUY Sodium Chloride (Normal Saline 0.9%) 1,000 mls @ 2,000 mls/hr IV BOLUS ONE Stop: 04/26/25 03:29 Last Infusion: 04/26/25 07:24 Dose: Infused Documented By: Admin: 04/26/25 03:15 Dose: 2,000 mls/hr Documented By: RUY Dextrose (D10w) 100 mls @ 999 mls/hr IV PRN PRN PRN Reason: Hypoglycemia Azithromycin 500 mg/ Dextrose 250 mls @ 250 mls/hr IV Q24H [facility]ON[facility] Insulin Glargine (Insulin Glargine 100 Unit/Ml 3ml Pen) 30 unit SUBCUT NOW ONE Stop: 04/26/25 06:39 Last Admin: 04/26/25 07:54 Dose: 30 unit Documented By: JEROME Co-signed By: BG Insulin Human Lispro (Insulin Lispro 100 Unit/Ml 3ml Vial) 0 unit SUBCUT ACHS [facility]ONNE; Protocol Insulin Human Lispro (Insulin Lispro 100 Unit/Ml 3ml Vial) 8 unit SUBCUT NOW ONE; Protocol Stop: 04/26/25 06:52 Last Admin: 04/26/25 07:55 Dose: 8 unit Documented By: JEROME Co-signed By: BG Insulin Human Regular (Insulin Regular 100 Unit/Ml 3 Ml Vial) 5 unit IV NOW ONE Stop: 04/26/25 05:07 Last Admin: 04/26/25 05:36 Dose: 5 unit Documented By: RUY Co-signed By: AB Methylprednisolone (Methylprednisolone Succ 125 Mg/2 Ml Vial) 125 mg IV NOW ONE Stop: 04/25/25 20:26 Last Admin: 04/25/25 20:48 Dose: 125 mg Documented By: RUY Vital Signs Vital signs: Vital Signs - 8 hr 04/25/25 21:30 04/25/25 21:30 04/25/25 21:56 Pulse Rate 104 H 100 H Respiratory Rate 21 18 Blood Pressure 123/83 Pulse Oximetry 96 97 Oxygen Delivery Method Room Air Fraction of Inspired Oxygen 21 04/25/25 22:00 04/25/25 22:00 04/25/25 22:30 Pulse Rate 100 H 105 H Respiratory Rate 10 L 16 Blood Pressure 102/57 L Pulse Oximetry 97 96 Oxygen Delivery Method Fraction of Inspired Oxygen 04/25/25 22:30 04/25/25 23:00 04/25/25 23:00 Pulse Rate 106 H Respiratory Rate 16 Blood Pressure 133/61 123/58 L Pulse Oximetry 94 Oxygen Delivery Method Room Air Fraction of Inspired Oxygen 04/25/25 23:30 04/26/25 00:00 04/26/25 00:30 Pulse Rate 115 H 106 H 104 H Respiratory Rate 21 16 27 H Blood Pressure Pulse Oximetry 96 95 94 Oxygen Delivery Method Fraction of Inspired Oxygen 04/26/25 01:00 04/26/25 01:30 04/26/25 02:00 Pulse Rate 130 H 107 H 108 H Respiratory Rate 23 22 20 Blood Pressure Pulse Oximetry 94 93 95 Oxygen Delivery Method Fraction of Inspired Oxygen 04/26/25 02:30 Pulse Rate 108 H Respiratory Rate 20 Blood Pressure Pulse Oximetry 95 Oxygen Delivery Method Room Air Fraction of Inspired Oxygen MDM - SOB/Dyspnea Lab Data Attestation: I reviewed the patient's lab results. Lab results narrative: POC glucose 368. Other lab draw results sent to [facility] during temporary in- house closure. 04/26/25 08:27 04/26/25 03:12 Labs: Lab Results 04/25/25 04/26/25 04/26/25 Range/Units 21:05 00:19 02:28 Sodium (137-145) mmol/L Potassium (3.4-5.1) mmol/L Chloride (98-107) mmol/L Carbon Dioxide (22-32) mmol/L BUN (7-17) mg/dL Creatinine (0.52-1.04) mg/dL Estimated GFR (>60) mL/min BUN/Creatinine Ratio (6-22) Glucose (70-99) mg/dL POC Whole Bld Glucose 368 H (70-99) mg/dL Lactate 3.9 H (0.7-2.1) mmol/L Calcium (8.4-10.2) mg/dL Urine Color Yellow Urine Appearance Clear Urine pH 5.5 (4.5-8.0) Ur Specific Petal 1.015 (1.000-1.035) Urine Protein Negative (Negative) Urine Glucose (UA) 3+ H (Negative) g/dL Urine Ketones Negative (NEGATIVE) Urine Occult Blood Negative (Negative) Urine Nitrate Negative (Negative) Urine Bilirubin Negative (NEGATIVE) Urine Urobilinogen 0.2 (0.2) E.U./dL Ur Leukocyte Esterase Negative (NEGATIVE) Urine RBC None seen (0-5/HPF) Urine WBC None seen (0-5/HPF) Ur Squamous Epith Cells 0-1 /hpf (0-5/HPF) Urine Bacteria None seen (None) Ur Culture Indicated? Cult not indicated Vol Urine Centrifuged 10ml (spun) 04/26/25 04/26/25 04/26/25 Range/Units 03:12 04:00 05:24 Sodium 132 L (137-145) mmol/L Potassium 5.1 (3.4-5.1) mmol/L Chloride 99 (98-107) mmol/L Carbon Dioxide 19 L (22-32) mmol/L BUN 28 H (7-17) mg/dL Creatinine 1.05 H (0.52-1.04) mg/dL Estimated GFR 55 L (>60) mL/min BUN/Creatinine Ratio 26.7 H (6-22) Glucose 399 H (70-99) mg/dL POC Whole Bld Glucose 450 H* (70-99) mg/dL Lactate 3.9 H (0.7-2.1) mmol/L Calcium 9.0 (8.4-10.2) mg/dL Urine Color Urine Appearance Urine pH (4.5-8.0) Ur Specific Petal (1.000-1.035) Urine Protein (Negative) Urine Glucose (UA) (Negative) g/dL Urine Ketones (NEGATIVE) Urine Occult Blood (Negative) Urine Nitrate (Negative) Urine Bilirubin (NEGATIVE) Urine Urobilinogen (0.2) E.U./dL Ur Leukocyte Esterase (NEGATIVE) Urine RBC (0-5/HPF) Urine WBC (0-5/HPF) Ur Squamous Epith Cells (0-5/HPF) Urine Bacteria (None) Ur Culture Indicated? Vol Urine Centrifuged Point of Care Testing Glucose POC 368 Imaging Data Chest x-ray: Radiologist's Impression: [place] [id number] [place] [id number] XRay Report Signed Patient: Ninfa Hercules MR#: [id number] : 1945 Acct:[id number] Age/Sex: 79 / F Date of Service: 04/25/25 Loc: ED Accession Number: [id number] Procedure: XR chest 1V Ordering Provider: Mikie Myers MD PROCEDURE: XR CHEST 1V INDICATIONS: Shortness of breath TECHNIQUE: One view of the chest was acquired. COMPARISON: [facility], CR, XR CHEST 1V, 03/17/2025, 15:14. [facility], CR, XR CHEST 1V, 04/01/2025, 17:44. FINDINGS: Surgical changes and devices: None. Lungs and pleura: Lungs are clear. No pleural effusions or pneumothorax. Mediastinum: The cardiac contours are within normal limits. The aorta demonstrates calcification and tortuosity. Bones and chest wall: No suspicious bony lesions. Age-appropriate bony degenerative changes are seen. Overlying soft tissues appear unremarkable. IMPRESSION: Portable chest within normal limits for age. Dictated by: Ryan Garcia M.D. on 04/25/2025 at 19:48 Approved by: Ryan Garcia M.D. on 04/25/2025 at 19:48 ECG Data Attestation: I personally reviewed and interpreted this ECG as follows: Interpretation: 2017, sinus tachycardia with rate of 101, no obvious ST segment elevation or depression changes. MO 150, QRS 76, QTC 466. MDM Narrative Medical decision making narrative: 79-year-old female assisted care facility resident with prior COVID, reactive airways, home regimen albuterol inhaler and nebulizers, no home oxygen. Has new dry cough since this morning with increasing shortness of breath through the day. Afebrile, sirs screen negative. EMS transport, reportedly was wheezing initially, was given breathing treatment extended during transport, no steroid, feels better on arrival. Chest x-ray, EKG, labs pending. COVID/influenza swab requested. Labs delayed, in-house lab problem, specimens sent to [facility], in-house laboratory has sewage backup problem, on temporary in-house lab divert. Await results from [facility]. Chest x-ray without lobar pneumonia, no mentioned fluid overload, see radiology report. POC glucose 300s noted, await remaining labs to check anion gap and potassium level, possible subcutaneous insulin bolus, patient on insulin pump. Lab data, in-house lab was down, labs were drawn here and sent to [facility]. Results from faxed printed reports: White blood cell count 64904, hemoglobin 13.1, platelets 281,000. Sodium 138, potassium 4.7, chloride 102, serum CO2 22. BUN 34 with creatinine 1.14. Glucose 225. AST 48, ALT 19, alkaline phosphatase 102, tbili 0.9. BNP 131 not elevated. Lactate 3.2 elevated. INR 0.9 normal. COVID RSV flu negative. Unclear if lab lactate was elevated due to artifact of long-distance interim transfer. We will repeat lactate now. Urinalysis still pending. Recent cough with wheezing, IV Solu-Medrol, bronchodilators given. Symptoms improved. Prednisone prescription for 5 day pulse sent to her requested pharmacy. Transfer back to her assisted care facility. Recheck with her PCP advised mid this week if not improving further. Return precautions discussed. Repeat lactate here 3.9 further elevated. Unclear source. Abdomen seems benign, no tenderness, no abdominal pain. No obvious pneumonia on chest x-ray. We will obtain CT chest abdomen and pelvis. Blood cultures. IV ceftriaxone and oral doxycycline for respiratory coverage given that she has shortness of breath and wheezing as possible source, if infection not evident on imaging, versus subdiaphragmatic or other source. IV fluid bolus 30mL/kg based on IBWt 0340, case presented to hospitalist Dr. Peterson who accepts patient for admission, aware that CT chest abdomen studies are still pending. We will update with results. Empiric antibiotics for possible pneumonia initiated. CT angio chest. Impressions: Suboptimal timing of the contrast bolus to evaluate for pulmonary embolism. No central pulmonary embolus or aortic dissection. Thyroid gland appears large nodular. Recommend nonemergent thyroid ultrasound for further evaluation. Hiatal hernia.. See tele radiology report. CT abdomen and pelvis with IV contrast. Impressions: ?Trace pericardial effusion. No evidence of colitis, diverticulitis, bowel obstruction, or obstructive uropathy. Appendix is not visualized.. See tele radiology report. Glucose 400s repeat, IVF prior, will give IV regular insulin 5-units bolus. Continue patient own insulin pump for now. 0500, case discussed again with hospitalist Dr. Peterson who accepts patient for admission Critical Care Time Critical Care Time Critical Care Time: Yes Total Critical Care Time: 35 Attestation: The high probability of a clinically significant, sudden or life threatening deterioration of the [gastrointestinal, abdominopelvic, cardiopulmonary] system(s) required my full and direct attention, intervention and personal management. The aggregate critical care time was [35] minutes. This time is in addition to time spent performing reported procedures but includes the following: [x] Data Review and interpretation [x] Patient assessment and monitoring of vital signs [x] Documentation [x] Medication orders and management Discharge Plan Departure Patient Disposition: Admitted as Observation Clinical Impression: Upper respiratory infection, Wheezing, Asthma exacerbation, Sepsis, Hyperglycemia, History of diabetes mellitus, Thyroid nodule Admit Date/Time: 04/26/25 05:39 Admit Provider: Rogers Peterson
[2025-04-25] MEDS: ALBUTEROL/IPRATROPIUM 3 ML AMPUL INH (21:55)
[2025-04-25] MEDS: ALBUTEROL HFA PREPACK 1 BOX MISC (21:55)
[2025-04-26] VITALS (22 sets, daily range): BP systolic 109–155; BP diastolic 57–84; PULSE 96–130; RESP 16–27; TEMP 36.2–37.1; O2SAT 93–98; BMI 42.3
[2025-04-26] MEDS: LACTATED RINGERS 1,000 ML 1000 ML IV (00:25)
[2025-04-26 00:56] LABS: Appearance Urine UA CLEAR; Bilirubin Urine UA NEGATIVE (NEGATIVE); Color Urine UA YELLOW; Glucose Urine UA 3+ g/dL (Negative); Ketones Urine UA NEGATIVE (NEGATIVE); Leukocyte Esterase Urine UA NEGATIVE (NEGATIVE); Nitrite Urine UA NEGATIVE (Negative); Occult Blood Urine UA NEGATIVE (Negative); Protein Urine UA NEGATIVE (Negative); Specific Gravity Urine UA 1.015 (1.000-1.035); Urobilinogen Urine UA 0.2 E.U./dL (0.2)
[2025-04-26 01:01] LABS: pH Urine UA 5.5 (4.5-8.0)
[2025-04-26 01:04] LABS: Culture Indicated Urine Cult Not Indicated
--- NOTE | 2025-04-26 02:33 | PC.NURSE ---
Patient states that she has improved since arrival to ER, especially after nebulizer treatment and HFA with spacer.
[2025-04-26 02:49] LABS: Lactate (Lactic Acid) 3.9 mmol/L (0.7-2.1)
--- NOTE | 2025-04-26 02:58 | DI.CT.S_ITS ---
PROCEDURE: CT ABDOMEN PELVIS W CON INDICATIONS: rising Lactate unclear cause TECHNIQUE: After the administration of intravenous contrast, axial sections acquired from the lung bases to the pubic symphysis. Coronal and sagittal reformats were performed. For radiation dose reduction, the following was used: automated exposure control, adjustment of mA and/or kV according to patient size. COMPARISON: [facility], CT, CT ABDOMEN PELVIS W CON, 09/15/2024, 19:19. FINDINGS: Lower Chest: And trace pericardial effusion ABDOMEN: Liver: No solid mass. Gallbladder: Cholecystectomy. Biliary ducts: No biliary dilation. Pancreas: No ductal dilation. Spleen: Size is within normal limits. Adrenal Glands: No adrenal nodules. Kidneys and Ureters: No hydronephrosis. No solid mass. No complex renal cystic lesion which requires follow up. Stomach and Bowel: Normal colonic caliber, without significant wall thickening. Peritoneum: No abnormal intraperitoneal fluid. No free air. Ventral Wall: No significant ventral hernia. Abdominal Nodes: No retroperitoneal or mesenteric adenopathy by size criteria. Vessels: Aorta and inferior vena cava are normal in size. PELVIS: Pelvic Organs: Unremarkable. Bladder: No bladder wall thickening, accounting for underdistention. Pelvic Nodes: No enlarged lymph nodes. Miscellaneous: No inguinal hernias are seen. Bones: Degenerative disc disease and arthropathy noted in lower lumbar spine. Right iliac bone lesion. IMPRESSION: No acute CT findings in the abdomen and pelvis. Possible trace pericardial effusion Note: This final report is concordant with the preliminary after-hours interpretation provided by [employer] Approved by: Jarad Chavez M.D. on 04/26/2025 at 8:59
--- NOTE | 2025-04-26 02:58 | DI.CT.S_ITS ---
PROCEDURE: CT ANGIO CHEST PE PROTOCOL INDICATIONS: shortness of breath TECHNIQUE: After the administration of intravenous contrast, 2 mm thick sections acquired from the pulmonary apices to the posterior costophrenic angles. MIP reformats of the arterial vasculature were utilized. For radiation dose reduction, the following was used: automated exposure control, adjustment of mA and/or kV according to patient size. COMPARISON: [facility], CT, CT ANGIO CHEST PE PROTOCOL, 10/03/2023, 21:34. FINDINGS: Image quality: Timing is suboptimal and limits assessment of peripheral pulmonary arteries Pulmonary arteries: No evidence of central filling defect to suggest central embolism Lower Neck: No enlarged lymph nodes. Thyroid: Hypertrophic and slightly nodular Axillae: No enlarged lymph nodes. Chest Wall: Unremarkable. Bones: Unremarkable. Lungs and Pleura: Mild emphysematous changes. No focal infiltrate. Heart: Heart size is normal. No pericardial effusion. Thoracic Vessels: No aortic aneurysm. Mediastinum and Emilie: No enlarged lymph nodes. Esophagus: No wall thickening. Small hiatal hernia. Upper Abdomen: Visualized upper abdomen solid organs and bowel loops appear normal. IMPRESSION: No evidence of central pulmonary embolism. No aortic aneurysm or dissection. Hypertrophic thyroid. Consider follow-up thyroid ultrasound Small hiatal hernia Note: This final report is concordant with the preliminary after-hours interpretation provided by [employer] Approved by: Jarad Chavez M.D. on 04/26/2025 at 8:52
[2025-04-26] MEDS: SODIUM CHLORIDE 0.9% 1,000 ML 2000 ML IV (03:15)
[2025-04-26] MEDS: DOXYCYCLINE HYCLATE 100 MG TABLET PO (03:25)
[2025-04-26 03:40] LABS: Blood Urea Nitrogen 28 mg/dL (7-17); Calcium 9.0 mg/dL (8.4-10.2); Carbon Dioxide 19 mmol/L (22-32); Chloride 99 mmol/L (98-107); Estimated Glomerular Filt Rate 55 mL/min (>60); Glucose 399 mg/dL (70-99); HEMOLYSIS < 15 (0-50); Potassium 5.1 mmol/L (3.4-5.1); Sodium 132 mmol/L (137-145)
[2025-04-26 04:09] LABS: Reflexed Lactate in 2 Hours Y
[2025-04-26 04:24] LABS: Lactate 2HR (Lactic Acid Rflx) 3.9 mmol/L (0.7-2.1)
[2025-04-26] MEDS: INSULIN REGULAR 100 UNIT/ML 3 ML VIAL IV (05:36)
--- NOTE | 2025-04-26 06:52 | PM.HP.1 ---
History of Present Illness History of Present Illness Date Patient Seen: 04/26/25 Time Patient Seen: 06:53 Chief complaint: SOB Narrative: 79-year-old female with past medical history of asthma non O2 dependent, insulin-dependent diabetes, hypertension, and hyperlipidemia presents at her assisted facility for increasing cough and shortness of breath with wheezing. Per the report, over the last few days the patient has had symptoms of admission. Patient states that her cough is dry denies any recent fever, chills, nausea, vomiting, diarrhea, chest pain or syncope. Emergency room, the patient remains hemodynamically stable and saturating well on room air. Chest x-ray shows no acute finding. Labs shows a sodium 132 creatinine 0.0 glucose 3995 respiratory panel negative WBC 15,000 lactic acid 3.0. Patient did receive some IV fluid and repeat lactate 3.9. CTA chest abdomen for final result signs of infection likely sprain elevated lactic acid and leukocytosis. CT of the chest however shows trace pericardial effusion. No PE. The patient again was given empiric IV antibiotic with IV ceftriaxone and oral doxycycline. ON LICENSE OF [facility] Medical History Insomnia, unspecified MDD (major depressive disorder), recurrent episode, moderate PTSD (post-traumatic stress disorder) Fatigue Sepsis Dyspnea on exertion Acute reaction to situational stress Unintentional weight loss Nausea & vomiting Secondhand smoke exposure Lichen sclerosus et atrophicus Microscopic hematuria Urge incontinence Hx of migraine headaches History of depression History of chronic urinary tract infection History of arthritis Peripheral neuropathy Depression Hyperlipidemia Fibromyalgia Hypertension Lower leg edema Diabetes Surgical History Hx of abdominal hysterectomy Hx of breast biopsy Hx of total knee replacement Hx of cholecystectomy Hx of appendectomy Family History Mother Cancer CVA (cerebral vascular accident) Hyperlipidemia Hypertension Father Hypertension Hyperlipidemia CAD (coronary artery disease) Sister Hyperlipidemia Hypertension Diabetes mellitus Multiple kidney stones Migraines Brother Hyperlipidemia Hypertension Migraines Eczema Social History marital status: number of children: 4 household members: none lives independently: Yes alcohol intake: current caffeine: Yes Type(s) of exercise: walking frequency: 3-4 times per week duration: 15-30 minutes/day Meds Home Medications and Allergies Home Medications ?Medication ?Instructions ?Recorded ?Confirmed ?Type rosuvastatin 40 mg tablet 40 mg PO DAILY 06/15/23 04/16/25 History amlodipine 10 mg tablet 10 mg PO DAILY 09/27/23 04/16/25 History clobetasol 0.05 % topical ointment 1 applic topical BID PRN pain 09/27/23 04/16/25 History (scale score 4-6) albuterol sulfate 90 mcg/actuation 1 - 2 puff inhalation Q4H PRN 09/03/24 04/16/25 History aerosol inhaler dyspnea aspirin 81 mg tablet,delayed 81 mg PO DAILY 09/03/24 04/16/25 History release ipratropium 0.5 mg-albuterol 3 mg 3 ml inhalation Q6H PRN shortness 09/03/24 04/16/25 History (2.5 mg base)/3 mL nebulization of breath soln ketoconazole 2 % topical cream 1 applic topical DAILY PRN yeast 12/15/24 04/16/25 Rx infection #60 grams blood-glucose sensor (FreeStyle #2 ea 12/23/24 04/16/25 Rx Chava 2 Plus Sensor device) insulin pump cart,auto,BT,G6/L #5 ea 12/23/24 04/16/25 Rx (Omnipod 5 (G6/Chava 2 Plus) subcutaneous cartridge) insulin pump cartridge,auto #1 ea 12/23/24 04/16/25 Rx dose,BT,G6/L2 with controller subcutaneous (Omnipod 5 Intro Kit(G6/Imrpu9Lola) subcutaneous cartridge) duloxetine 60 mg capsule,delayed 60 mg PO DAILY #90 caps 02/11/25 04/16/25 Rx release lisinopril 40 mg tablet 40 mg PO DAILY #30 tabs 02/27/25 04/16/25 Rx vitamins with calcium 1 tab PO DAILY #30 tabs 02/27/25 04/16/25 Rx no.72-iron 27 mg-folic acid 1 mg tablet ( Vitamins Plus Low Iron) propranolol 20 mg tablet 20 mg PO BEDTIME #30 tabs 02/27/25 04/16/25 Rx Held on 04/16/25. Instructions: Home Medication placed on hold at Doctor's office quetiapine 50 mg tablet 50 mg PO BEDTIME #20 tabs 02/27/25 04/16/25 Rx ondansetron 4 mg disintegrating 4 mg PO Q6H PRN nausea and 03/02/25 04/16/25 Rx tablet vomiting #14 tabs insulin lispro 100 unit/mL 65 unit (0.65 mL) SUBCUT 03/03/25 04/16/25 Rx subcutaneous solution (Humalog USEASDIRECTD to use with insulin U-100 Insulin) pump #15 mL meloxicam 15 mg tablet 15 mg PO DAILY 03/17/25 04/16/25 History methocarbamol 500 mg tablet 500 mg PO BID PRN muscle spasm 03/17/25 04/16/25 History glipizide 10 mg tablet 10 mg PO DAILY #60 tabs 03/27/25 04/16/25 Rx meclizine 25 mg tablet 25 mg PO TID #20 tabs 04/01/25 04/16/25 Rx acetaminophen 500 mg tablet 1,000 mg PO Q6H PRN fever or pain 04/03/25 04/16/25 History wixela fluticasone propionate See Rx Instructions .Route .COMPLEX 04/03/25 04/16/25 History levothyroxine 50 mcg tablet 50 mcg PO DAILY@0600 #30 tabs 04/05/25 04/16/25 Rx (Synthroid) Held on 04/10/25. Instructions: Home Medication placed on hold at Doctor's office polyethylene glycol 3350 17 gram 17 g PO DAILY #30 ea 04/05/25 04/16/25 Rx oral powder packet (Gavilax) sennosides 8.6 mg tablet (senna) 17.2 mg (2 x 8.6 mg) PO BEDTIME 04/05/25 04/16/25 Rx #60 tabs semaglutide 0.25 mg or 0.5 mg (2 0.25 mg (0.368 mL) SUBCUT QWEEK #3 04/10/25 04/16/25 Rx mg/3 mL) subcutaneous pen injector mL (Ozempic) fluticasone propionate 50 1 spray intranasal DAILY #16 grams 04/16/25 04/16/25 Rx mcg/actuation nasal spray,suspension (Flonase Allergy Relief) prednisone 20 mg tablet 40 mg (2 x 20 mg) PO DAILY 5 days 04/25/25 Rx #10 tabs Allergies Allergy/AdvReac Type Severity Reaction Status Date / Time morphine AdvReac Nightmare Verified 04/16/25 07:35 Review of Systems Review of Systems ROS: Yes All systems reviewed with the patient and are negative except as otherwise documented Exam Vital Signs (past 8 hours): - 04/25/25 23:00 04/25/25 23:00 04/25/25 23:30 Temperature Pulse Rate 106 H 115 H Respiratory Rate 16 21 Blood Pressure 123/58 L Pulse Oximetry 94 96 Oxygen Delivery Method Room Air 04/26/25 00:00 04/26/25 00:30 04/26/25 01:00 Temperature Pulse Rate 106 H 104 H 130 H Respiratory Rate 16 27 H 23 Blood Pressure Pulse Oximetry 95 94 94 Oxygen Delivery Method 04/26/25 01:30 04/26/25 02:00 04/26/25 02:30 Temperature Pulse Rate 107 H 108 H 108 H Respiratory Rate 22 20 20 Blood Pressure Pulse Oximetry 93 95 95 Oxygen Delivery Method Room Air 04/26/25 03:00 04/26/25 03:30 04/26/25 04:09 Temperature Pulse Rate 109 H 109 H 120 H Respiratory Rate 22 21 16 Blood Pressure Pulse Oximetry 94 95 96 Oxygen Delivery Method 04/26/25 04:27 04/26/25 04:27 04/26/25 04:30 Temperature Pulse Rate 112 H 109 H Respiratory Rate 21 19 Blood Pressure 155/75 H Pulse Oximetry 98 96 Oxygen Delivery Method 04/26/25 04:30 04/26/25 05:00 04/26/25 05:00 Temperature Pulse Rate 110 H Respiratory Rate 17 Blood Pressure 138/67 135/66 Pulse Oximetry 97 Oxygen Delivery Method 04/26/25 05:30 04/26/25 05:30 04/26/25 06:29 Temperature 98.8 F Pulse Rate 109 H 111 H Respiratory Rate 19 18 Blood Pressure 109/57 L 125/66 Pulse Oximetry 94 97 Oxygen Delivery Method Room Air Fraction of Inspired Oxygen 21 SaO2/FiO2 Ratio 457 Oxygen Delivery Method Room Air Narrative Exam Narrative: Physical Exam: GENERAL: The patient is not in any acute distressed. Awake and alert. HEENT: Nonicteric sclerae, PERRLA, EOMI. Oropharynx clear. Moist mucous membranes. Conjunctivae appear well perfused. HEART: Regular rate and rhythm without murmurs. No lower extremities edema. LUNGS: Mild bilateral wheezing otherwise Clear to auscultation bilaterally. No, crackles or rhonchi ABDOMEN: Soft, positive bowel sounds, nontender. SKIN: No rash, no excessive bruising, petechiae, or purpura. NEUROLOGIC: AxO x 3. Cranial nerves II-XII intact without motor/sensory deficit. Objective Labs 04/26/25 03:12 Labs: Laboratory Results - last 24 hr 04/25/25 04/26/25 04/26/25 21:05 00:19 02:28 Sodium Potassium Chloride Carbon Dioxide BUN Creatinine Estimated GFR BUN/Creatinine Ratio Glucose POC Whole Bld Glucose 368 H Lactate 3.9 H Calcium Urine Color Yellow Urine Appearance Clear Urine pH 5.5 Ur Specific [place] 1.015 Urine Protein Negative Urine Glucose (UA) 3+ H Urine Ketones Negative Urine Occult Blood Negative Urine Nitrate Negative Urine Bilirubin Negative Urine Urobilinogen 0.2 Ur Leukocyte Esterase Negative Urine RBC None seen Urine WBC None seen Ur Squamous Epith Cells 0-1 /hpf Urine Bacteria None seen Ur Culture Indicated? Cult not indicated Vol Urine Centrifuged 10ml (spun) 04/26/25 04/26/25 04/26/25 03:12 04:00 05:24 Sodium 132 L Potassium 5.1 Chloride 99 Carbon Dioxide 19 L BUN 28 H Creatinine 1.05 H Estimated GFR 55 L BUN/Creatinine Ratio 26.7 H Glucose 399 H POC Whole Bld Glucose 450 H* Lactate 3.9 H Calcium 9.0 Urine Color Urine Appearance Urine pH Ur Specific [place] Urine Protein Urine Glucose (UA) Urine Ketones Urine Occult Blood Urine Nitrate Urine Bilirubin Urine Urobilinogen Ur Leukocyte Esterase Urine RBC Urine WBC Ur Squamous Epith Cells Urine Bacteria Ur Culture Indicated? Vol Urine Centrifuged 04/26/25 06:43 Sodium Potassium Chloride Carbon Dioxide BUN Creatinine Estimated GFR BUN/Creatinine Ratio Glucose POC Whole Bld Glucose 400 H Lactate Calcium Urine Color Urine Appearance Urine pH Ur Specific [place] Urine Protein Urine Glucose (UA) Urine Ketones Urine Occult Blood Urine Nitrate Urine Bilirubin Urine Urobilinogen Ur Leukocyte Esterase Urine RBC Urine WBC Ur Squamous Epith Cells Urine Bacteria Ur Culture Indicated? Vol Urine Centrifuged Assessment & Plan Assessment & Plan narrative: Sepsis. Admit the patient to medical telemetry as inpatient. Unclear source at this point as all imaging CT chest abdomen pelvis shows no signs of infection. UA is negative. Will continue empiric IV doxycycline and IV ceftriaxone. Follow-up blood culture. Elevated lactic acid. initially 3.2 but repeat 3.9. Again albumin CT shows no sign of infection or ischemia. Continue IV fluid and monitor and trend lactic acid to normal. Asthma exacerbation. Continue Solu-Medrol and DuoNebs. Hyperglycemia. In the setting of history of insulin dependent diabetes with insulin pump. Hold insulin pum. Subcu insulin and monitor glucose. NO DKA at this point. Patient glucose in the 300s. IVF Hypertension. Monitor blood pressure and resume medication accordingly. DVT prophylaxis heparin subcu. CODE STATUS full code. Disposition to home in 2 to 3 days - As the provider of this telehealth evaluation, requested by the patient's evaluating physician, I attest that I introduced myself to the patient, provided my credentials and determined that telemedicine via a real-time, 2 way interactive audio and video platform is an appropriate and effective means of providing this service. - I reviewed the patient's chart and had a discussion with the member of the patient's treatment team. - The patient and I mutually agreed with continuation of this evaluation via telemedicine. The patient consented for the telemedicine evaluation. - This virtual encounter was taken place from [place] by Dr. Rogers Peterson. The patient was evaluated at [facility]. The encounter was approximately 35 minutes. The nurse was present during the entire time of the encounter and was able assists with the stethoscope to listen to the patients. Time-Based Coding :: [TOTAL MINUTES] spent with patient and on the chart (including review of chart, obtaining history, exam, reviewing outside data, placing orders, documenting exam and treatment plan, and counseling patient) on [DATE].
[2025-04-26] MEDS: ACETAMINOPHEN 325 MG TABLET 975 MG PO (07:53)
[2025-04-26] MEDS: INSULIN GLARGINE 100 UNIT/ML 3ML PEN 30 UNIT SUBCUT (07:54)
[2025-04-26] MEDS: INSULIN LISPRO 100 UNIT/ML 3ML VIAL 8 UNIT SUBCUT (07:55)
--- NOTE | 2025-04-26 08:09 | PC.WOUNDPHOT ---
1) buttock 2) heels 3)Fading bruise to LLQ- pt reports that is d/t a heparin shot. 4) fading bruise to LLE 5) insulin pump- disconnected per MD
--- NOTE | 2025-04-26 08:13 | PC.NURSE ---
Patient has continuous glucose pump, disconnected per MD. Patient aware that she will get blood sugar checks and insulin ordered at the hospital.
[2025-04-26] MEDS: methylPREDNISolone succ 125 MG/2 ML VIAL 80 MG IV ×2 (09:01→15:19)
[2025-04-26] MEDS: ENOXAPARIN 40 MG/0.4 ML SYRINGE SUBCUT (09:04)
[2025-04-26] MEDS: SODIUM CHLORIDE 0.9% 1,000 ML 100 ML IV ×2 (09:09→18:59)
[2025-04-26 09:11] LABS: Add Manual Diff / Slide Review NO; Hematocrit 39.3 % (36-46); Hemoglobin 13.0 g/dL (12.0-16.0); Lymphocytes Absolute Auto 1300 /uL (1100-4500); Mean Corpuscular HGB Conc 33.0 % (30-36); Mean Corpuscular Hemoglobin 29.9 PG (26-34); Mean Corpuscular Volume 90.6 fL (80-100); Platelet Count 237 X10^3/uL (150-400)
[2025-04-26 09:22] LABS: Lactate (Lactic Acid) 4.0 mmol/L (0.7-2.1)
[2025-04-26 10:44] LABS: Reflexed Lactate in 2 Hours Y
--- NOTE | 2025-04-26 11:57 | PT.IIE ---
Current Diagnoses Sepsis, unspecified organism (04/26/25) Surgical History (Last Reviewed 03/18/25 @ 08:27 by Sascha Blancas MD) Hx of abdominal hysterectomy Hx of appendectomy Hx of breast biopsy Hx of cholecystectomy Hx of total knee replacement Medical History (Last Reviewed 03/18/25 @ 08:27 by Sascha Blancas MD) Acute reaction to situational stress Depression Diabetes Dyspnea on exertion Fatigue Fibromyalgia History of arthritis History of chronic urinary tract infection History of depression Hx of migraine headaches Hyperlipidemia Hypertension Insomnia, unspecified Lichen sclerosus et atrophicus Lower leg edema MDD (major depressive disorder), recurrent episode, moderate Microscopic hematuria Nausea & vomiting Peripheral neuropathy PTSD (post-traumatic stress disorder) Secondhand smoke exposure Sepsis Unintentional weight loss Urge incontinence Physical Therapy Inpatient Evaluation/Re-Eval M1 PT/OT-IP Prior Functional Status Start: 04/26/25 11:46 Freq: NEEDED Status: Active Protocol: Document 04/26/25 11:47 KJ (Rec: 04/26/25 11:57 KJ [id number]) Medical Review Prior Functional Status Medical History Yes Reviewed Communication wheezing noted during our discussion Mobility and Gait Lives in [facility], Ambulated with 4ww and assist, has been told not to get up without assistance so she always calls for help. nevertheless she has had frequent falls , including one 3 1/2 weeks ago when she broke her big toe on the R foot and injured her R shoulder. Pt states her R hip is bone on bone and she needs a hip replacement but has too many other things going on right now so that surgery is on hold. Activities of Daily Pt requires assist with all ADLs. Not wearing shoes Living and IADL's right now due to edema in R big toe Social History Household Members none Living Arrangements Assisted Living Home Environment Tub/Shower Home Equipment Four Wheel Walker,Shower Seat without Backrest,Grab Bars Near Toilet,Grab Bars In Shower M2 PT-IP Current Condition Start: 04/26/25 11:46 Freq: NEEDED Status: Active Protocol: Document 04/26/25 11:47 KJ (Rec: 04/26/25 11:57 KJ [id number]) Physical Therapy Current Condition Current Condition Evaluation Date 04/26/25 Treatment Diagnosis impaired mobility M3 PT-IP Subjective Start: 04/26/25 11:46 Freq: NEEDED Status: Active Protocol: Document 04/26/25 11:47 KJ (Rec: 04/26/25 11:57 KJ [id number]) Subjective Physical Therapy Visit Type Type Initial Evaluation Visit Start Time 10:29 Visit Stop Time 11:08 Physical Therapy Visit Comments Patient Comments has been having chest pressure, coughing, difficulty talking. Recently started home health for PT OT and nursing Therapy Pain Assessment Pain When Pain Assessed During Mobility M4 PT-IP Mobility and Gait Start: 04/26/25 11:46 Freq: NEEDED Status: Active Protocol: Document 04/26/25 11:47 KJ (Rec: 04/26/25 11:57 KJ [id number]) PT-Bed Mobility Assessment Rolling Type of Rolling Roll to Right Level of Assist Contact Guard Assistance Supine to Sit Supine to Sit Contact Guard Assistance Sit to Supine Sit to Supine Minimal Assistance Scooting Scooting Up and Down Minimal Assistance in Bed PT-Transfer Assessment Comments Mobility Comments During sitting BP remains stable but HR stays at 130 bpm. Pt reports dizziness during sitting. She states she is willing to stand, however this is deferred due to high HR. PT-Balance Assessment Sitting Balance and Reactions Static Sitting Good Balance Ability Dynamic Sitting Good Balance Ability M5 PT-IP Objective Assessments Start: 04/26/25 11:46 Freq: NEEDED Status: Active Protocol: Document 04/26/25 11:47 KJ (Rec: 04/26/25 11:57 KJ [id number]) Orientation Orientation/Cognition Level of Alertness Alert Orientation Name,Age,Birthday,Month,Date,Year,Day of Week,Place, Situation Language Function No Deficits Noted Ability Memory Description No Deficits Noted Comments wheezing during and after talking Gross Range of Motion Upper Extremity ROM Assessment Right Impaired Impairments decreased AROM in R shoulder Lower Extremity ROM Assessment Right Impaired Impairments R hip painful Strength Upper Extremity Strength Assessment Right Impaired Shoulder decreased in R shoulder flex, abd, int and ext rotation Lower Extremity Strength Assessment Right Impaired Hip r impaired Knee WFL Ankle WFL M6 PT-IP Treatment Start: 04/26/25 11:46 Freq: NEEDED Status: Active Protocol: Document 04/26/25 11:47 KJ (Rec: 04/26/25 11:57 KJ [id number]) Physical Therapy Treatment Education Education Provided Safety Other Treatments Other Treatment Monitored pt during ther act. Instructed pt in safety Performed during mobility and in progression of therapy M7 PT-IP Assessment and Plan Start: 04/26/25 11:46 Freq: NEEDED Status: Active Protocol: Document 04/26/25 11:47 KJ (Rec: 04/26/25 11:57 KJ [id number]) PT Summary Assessment and Plan Potential Rehabilitation Good Potential Status of Condition Evolving at Evaluation Summary Impairments Pain,ROM,Strength,Transfers,Gait,Activity Tolerance Assessment Summary Pt not tolerating much activity due to tachycardia and wheezing. PT appears to have a R rotator cuff tear. Goals Bed Mobility Goal Independent Transfer Goal Minimal Assistance Gait Goal Minimal Assistance Gait Distance 10 Days to Meet Goals 5 Frequency of Treatment Frequency Of Once a Day Treatment Treatment Plan Physical Therapy Transfer Training,Gait Training,Therapeutic Exercise Treatment Plan Other monitor HR during activity, progress to transfers and Recommendations and ambulation Next Treatment Focus Recommendations To Nursing Amount of Assist Mechanical Lift Needed Discharge Recommendations PT Discharge SNF Rehab Recommendations Transportation Needs Wheelchair/Cabulance at Discharge
[2025-04-26 11:59] LABS: Lactate 2HR (Lactic Acid Rflx) 4.1 mmol/L (0.7-2.1)
[2025-04-26 12:07] LABS: Coronavirus NL 63 Not Detected (Not Detect); SARS- CoV-2 Not Detected (Not Detecte)
[2025-04-26] MEDS: INSULIN LISPRO 100 UNIT/ML 3ML VIAL SUBCUT ×3 (12:09→20:14)
--- NOTE | 2025-04-26 13:29 | CM.DANOTE ---
Addendum entered by RENZO Chaudhary 04/26/25 16:01: ADD: [facility] confirms they can accept, currently under her asthma exac dx and will need to be resolving but not fully resolved to have skillable need. [facility] willing to submit for auth today 04/26. BF Original Note: Patient is a 79 yo female, resident at [facility] in [place], admitted OBS Status on 04/26/25 for SOB/dypsnea. Pt recently admitted in March 2025 last month for similar and weakness, nausea, dizziness and management of UTI. PCP: Ellie Elias Payer: [facility] PT, recommending SNF at this time as pt tachy and unable to ambulate today. May improve once more medically stable. Reviewed chart; met w/patient who reports she lives at [facility] and feels she gets very good care there. [facility] staff assist with all transfers as patient is a level 3 fall risk due to falls in the past- Patient has help with most ADLs to an extent. Patient is able to walk with her walker once she is up but needs staff present for SBA anytime she gets up due to her increased falls and risk. Staff help with bathing, grooming, meds, have been bringing her meals in her room as she cannot make it to the dining room. Pt typically sleeps in her recliner or on her couch as her bed makes her back hurt. Pt's spouse is and was a [employer] for 50 yrs. Pt established with [facility] and has Lisa as her therapist as pt has increased depression due to her poor quality of life the past two years and very tearful. Pt requesting assist with contacting Lisa tomorrow Sun to see if she can do bedside session for their scheduled 04/28 session. Patient pays [facility] directly with her monthly social security check and [facility] pays the remainder of the cost for care. Patient has 4 adult children, her sister Edel ([place]) and son Jarad ([place]) are joint DPOA. Discussed dispo and pt confirms she has no hx of SNF and discussed purpose of SNF and likelihood of shared room and pt currently agreeable to referral to [facility] after reviewing SNF Choice list and aware her [facility] M[facility] would need to auth SNF. Pt aware that if she improves while admitted or insurace denies SNF then plan would be return to [facility] and pt already open with [facility] RN/PT/OT. SW made referral to [facility] to review and will need [facility] auth. No PASRR done yet. SW updated [facility] and faxed clinicals to review as pt currently open to services. Plan: SW to follow closely for further PT to determine SNF vs return to [facility] with HH and to coordinate with her therapist at [facility] and [employer] as pt established with [facility] for her insulin pump. RENZO Chaudhary Discharge Planning/Care Management CM Discharge Assessment Start: 04/26/25 06:27 Freq: Status: Active Protocol: Document 04/26/25 13:22 BF (Rec: 04/26/25 13:26 BF [id number]) Discharge Planning Assessment Assigned Discharge RENZO Marie Associate Professor Of Biblical Studies Provider Ellie Elias Insurance Medicare,[employer] Insurance Comment [facility] DPOA/Assigned Sister Edel and son Designee Name Contact Information [phone] Advance Directives? Yes Advance Directives Yes on File History Provided By Patient,Medical Record Has Patient been Yes admitted in last 30 days? Comment Twice in March last month, went back to [facility] Prior Living Assisted Living Arrangements Household Members none Type of Relies on Others transporation used prior to admit Facility Name [facility] Admitted From: Willing to Return to Yes Facility? Independent with ADL No 's Is patient alert and Yes oriented? Needs Assistance Bathing,Grooming,Meal Prep,Toileting,Managing With Medications,Home Chores / Shopping Comment Very high fall risk so needs SBA when ambulating in her apt Caregiver for No Another Community Services Physical Therapy,Occupational Therapy,Home Health Nurse used prior to admission: Comment Open with [facility] RN/PT/OT DME Already Rented / FWW / Walker Owned Patient/Family [facility]ent[facility] Facility,Home with Home Health Preference Comment SNF vs HH pending progress Comment Anticipate return to [facility] vs SNF via [facility] transport Discharge Plan Penitentiary Facility Transportation [facility] transport Arrangement Referrals Initiated Penitentiary Additional Comment Open with [facility] Medicare Choice List Yes Provided Medicare choice list patient reviewed on electronic tablet with SNF/HH Preference [facility] vs [facility] pending progress Has Agency SNF been Yes contacted Whiteboard Updated Yes in Patient Room with name and ext. # of Manager Field Sales Review Status In Process Please Provide Date 04/26/25 Initial DC Assessment Was Performed Next Review Type Continued Stay Review
[2025-04-26] MEDS: ALBUTEROL/IPRATROPIUM 3 ML AMPUL INH ×2 (13:43→19:38)
[2025-04-26] MEDS: AZITHROMYCIN 500 MG in SODIUM CHLORIDE 0.9% 250 ML 250 MG IV (13:56)
[2025-04-26 14:04] LABS: Troponin I < 0.012 ng/mL (0.01-0.034)
[2025-04-26] MEDS: ONDANSETRON 4 MG/2 ML INJ IV (15:21)
[2025-04-26 16:35] LABS: Lactate (Lactic Acid) 1.9 mmol/L (0.7-2.1)
--- NOTE | 2025-04-26 17:59 | PM.PN.1 ---
Subjective Subjective Interval history: 79-year-old female with insulin-dependent diabetes mellitus type 2, hypertension, fibromyalgia, depression, asthma, history of stroke in 2010 and 2015, hospital admission in mid March for benign positional vertigo orthostatic hypotension and pansensitive E coli UTI, as well as a another hospitalization at the end of last month for E coli UTI, severe constipation, acute kidney injury and dehydration. She was admitted early this morning with shortness of breaths, lactic acidosis and concern for sepsis. She reported she was up having a bowel movement yesterday morning without difficulty but when she got up to return back to bed, she became very short of breath, developed chest pressure, and her voice became very hoarse. She used her inhaler 3 times without relief. EMS was called and she received 3 nebulizer treatments without relief. In the emergency department she had a white blood cell count of 15.4, sodium 132, BUN 28, creatinine 1.05, elevated blood sugars in the mid to high 300s, initial lactate of 3.1, CT of the abdomen and pelvis revealing a possible trace pericardial effusion, CT pulmonary angiogram revealing no evidence of pulmonary embolism, aortic aneurysm, or dissection. There is a small hiatal hernia and a hypertrophic thyroid. Follow-up lactate was 3.9. She is admitted further care. Echo done last week revealed an EF of 70 75%, normal diastolic function, CVP around 3. No significant valvular abnormalities. She is scheduled for a stress test on an outpatient basis with the 1st part she states being done tomorrow and the remainder being done sometime in the next week. She recently had an abnormal thyroid ultrasound done and has biopsies scheduled for the next week or so. She was admitted and placed on IV steroids, breathing treatments, and azithromycin. Flu a, B, RSV, COVID rale negative as was her respiratory panel. UA was negative as well. Exam Vital Signs (past 8 hours): - 04/26/25 13:43 04/26/25 15:00 04/26/25 15:51 Temperature 97.9 F Pulse Rate 107 H 110 H Respiratory Rate 16 20 Blood Pressure 127/82 Pulse Oximetry 97 96 97 Oxygen Delivery Method Room Air Room Air Fraction of Inspired Oxygen 21 SaO2/FiO2 Ratio 457 Oxygen Delivery Method Room Air Narrative Exam Narrative: GEN: Elderly female, very pleasant, Alert and oriented x 3, NAD HEENT:NC, Face symmetric CHEST: Respiratory excursions symmetric, CTAB CV: Mildly tachycardic with regular rhythm, no M/R/G ABD: Soft, obese, NT/ND, BT present in all 4 quadrants, body habitus limits exam EXTR: warm, well perfused, no C/C/E SKIN: warm and dry, no rash NEURO: Alert and oriented x 3, nonfocal Objective Labs 04/26/25 08:27 04/26/25 03:12 Labs: Laboratory Results - last 24 hr 04/25/25 04/26/25 04/26/25 21:05 00:19 02:28 WBC RBC Hgb Hct MCV MCH MCHC RDW Plt Count Neut % (Auto) Lymph % (Auto) [place] % (Auto) Eos % (Auto) Baso % (Auto) Neut # (Auto) Lymph # (Auto) [place] # (Auto) Eos # (Auto) Baso # (Auto) Sodium Potassium Chloride Carbon Dioxide BUN Creatinine Estimated GFR BUN/Creatinine Ratio Glucose POC Whole Bld Glucose 368 H Lactate 3.9 H Calcium Troponin I Urine Color Yellow Urine Appearance Clear Urine pH 5.5 Ur Specific [place] 1.015 Urine Protein Negative Urine Glucose (UA) 3+ H Urine Ketones Negative Urine Occult Blood Negative Urine Nitrate Negative Urine Bilirubin Negative Urine Urobilinogen 0.2 Ur Leukocyte Esterase Negative Urine RBC None seen Urine WBC None seen Ur Squamous Epith Cells 0-1 /hpf Urine Bacteria None seen Ur Culture Indicated? Cult not indicated Vol Urine Centrifuged 10ml (spun) Chlamy pneumoniae PCR Adenovirus (PCR) B. pertussis DNA (PCR) B.parapertussis DNA PCR Coronavirus OC43 (PCR) Coronavirus HKU1 (PCR) Coronavirus 229E (PCR) SARS-CoV-2 (PCR) Coronavirus NL63 (PCR) Human Metapneumovir PCR Influenza Type A (PCR) Influenza Type B (PCR) M. pneumoniae (PCR) Parainfluenza 1 (PCR) Parainfluenza 2 (PCR) Parainfluenza 3 (PCR) Parainfluenza 4 (PCR) RSV (PCR) Entero/Rhino (PCR) 04/26/25 04/26/25 04/26/25 03:12 04:00 05:24 WBC RBC Hgb Hct MCV MCH MCHC RDW Plt Count Neut % (Auto) Lymph % (Auto) [place] % (Auto) Eos % (Auto) Baso % (Auto) Neut # (Auto) Lymph # (Auto) [place] # (Auto) Eos # (Auto) Baso # (Auto) Sodium 132 L Potassium 5.1 Chloride 99 Carbon Dioxide 19 L BUN 28 H Creatinine 1.05 H Estimated GFR 55 L BUN/Creatinine Ratio 26.7 H Glucose 399 H POC Whole Bld Glucose 450 H* Lactate 3.9 H Calcium 9.0 Troponin I Urine Color Urine Appearance Urine pH Ur Specific [place] Urine Protein Urine Glucose (UA) Urine Ketones Urine Occult Blood Urine Nitrate Urine Bilirubin Urine Urobilinogen Ur Leukocyte Esterase Urine RBC Urine WBC Ur Squamous Epith Cells Urine Bacteria Ur Culture Indicated? Vol Urine Centrifuged Chlamy pneumoniae PCR Adenovirus (PCR) B. pertussis DNA (PCR) B.parapertussis DNA PCR Coronavirus OC43 (PCR) Coronavirus HKU1 (PCR) Coronavirus 229E (PCR) SARS-CoV-2 (PCR) Coronavirus NL63 (PCR) Human Metapneumovir PCR Influenza Type A (PCR) Influenza Type B (PCR) M. pneumoniae (PCR) Parainfluenza 1 (PCR) Parainfluenza 2 (PCR) Parainfluenza 3 (PCR) Parainfluenza 4 (PCR) RSV (PCR) Entero/Rhino (PCR) 04/26/25 04/26/25 04/26/25 06:43 07:49 08:27 WBC 15.4 H RBC 4.33 Hgb 13.0 Hct 39.3 MCV 90.6 MCH 29.9 MCHC 33.0 RDW 14.0 Plt Count 237 Neut % (Auto) 90.9 H Lymph % (Auto) 8.3 L [place] % (Auto) 0.4 L Eos % (Auto) 0.0 L Baso % (Auto) 0.4 Neut # (Auto) 95110 H Lymph # (Auto) 1300 [place] # (Auto) 100 Eos # (Auto) 0 Baso # (Auto) 100 Sodium Potassium Chloride Carbon Dioxide BUN Creatinine Estimated GFR BUN/Creatinine Ratio Glucose POC Whole Bld Glucose 400 H 399 H Lactate 4.0 H Calcium Troponin I Urine Color Urine Appearance Urine pH Ur Specific [place] Urine Protein Urine Glucose (UA) Urine Ketones Urine Occult Blood Urine Nitrate Urine Bilirubin Urine Urobilinogen Ur Leukocyte Esterase Urine RBC Urine WBC Ur Squamous Epith Cells Urine Bacteria Ur Culture Indicated? Vol Urine Centrifuged Chlamy pneumoniae PCR Adenovirus (PCR) B. pertussis DNA (PCR) B.parapertussis DNA PCR Coronavirus OC43 (PCR) Coronavirus HKU1 (PCR) Coronavirus 229E (PCR) SARS-CoV-2 (PCR) Coronavirus NL63 (PCR) Human Metapneumovir PCR Influenza Type A (PCR) Influenza Type B (PCR) M. pneumoniae (PCR) Parainfluenza 1 (PCR) Parainfluenza 2 (PCR) Parainfluenza 3 (PCR) Parainfluenza 4 (PCR) RSV (PCR) Entero/Rhino (PCR) 04/26/25 04/26/25 04/26/25 10:54 11:05 11:41 WBC RBC Hgb Hct MCV MCH MCHC RDW Plt Count Neut % (Auto) Lymph % (Auto) [place] % (Auto) Eos % (Auto) Baso % (Auto) Neut # (Auto) Lymph # (Auto) [place] # (Auto) Eos # (Auto) Baso # (Auto) Sodium Potassium Chloride Carbon Dioxide BUN Creatinine Estimated GFR BUN/Creatinine Ratio Glucose POC Whole Bld Glucose 365 H Lactate 4.1 H* Calcium Troponin I Urine Color Urine Appearance Urine pH Ur Specific [place] Urine Protein Urine Glucose (UA) Urine Ketones Urine Occult Blood Urine Nitrate Urine Bilirubin Urine Urobilinogen Ur Leukocyte Esterase Urine RBC Urine WBC Ur Squamous Epith Cells Urine Bacteria Ur Culture Indicated? Vol Urine Centrifuged Chlamy pneumoniae PCR Not detected Adenovirus (PCR) Not detected B. pertussis DNA (PCR) Not detected B.parapertussis DNA PCR Not detected Coronavirus OC43 (PCR) Not detected Coronavirus HKU1 (PCR) Not detected Coronavirus 229E (PCR) Not detected SARS-CoV-2 (PCR) Not detected Coronavirus NL63 (PCR) Not detected Human Metapneumovir PCR Not detected Influenza Type A (PCR) Not detected Influenza Type B (PCR) Not detected M. pneumoniae (PCR) Not detected Parainfluenza 1 (PCR) Not detected Parainfluenza 2 (PCR) Not detected Parainfluenza 3 (PCR) Not detected Parainfluenza 4 (PCR) Not detected RSV (PCR) Not detected Entero/Rhino (PCR) Not detected 04/26/25 04/26/25 04/26/25 13:16 16:18 16:43 WBC RBC Hgb Hct MCV MCH MCHC RDW Plt Count Neut % (Auto) Lymph % (Auto) [place] % (Auto) Eos % (Auto) Baso % (Auto) Neut # (Auto) Lymph # (Auto) [place] # (Auto) Eos # (Auto) Baso # (Auto) Sodium Potassium Chloride Carbon Dioxide BUN Creatinine Estimated GFR BUN/Creatinine Ratio Glucose POC Whole Bld Glucose 332 H Lactate 1.9 Calcium Troponin I < 0.012 Urine Color Urine Appearance Urine pH Ur Specific [place] Urine Protein Urine Glucose (UA) Urine Ketones Urine Occult Blood Urine Nitrate Urine Bilirubin Urine Urobilinogen Ur Leukocyte Esterase Urine RBC Urine WBC Ur Squamous Epith Cells Urine Bacteria Ur Culture Indicated? Vol Urine Centrifuged Chlamy pneumoniae PCR Adenovirus (PCR) B. pertussis DNA (PCR) B.parapertussis DNA PCR Coronavirus OC43 (PCR) Coronavirus HKU1 (PCR) Coronavirus 229E (PCR) SARS-CoV-2 (PCR) Coronavirus NL63 (PCR) Human Metapneumovir PCR Influenza Type A (PCR) Influenza Type B (PCR) M. pneumoniae (PCR) Parainfluenza 1 (PCR) Parainfluenza 2 (PCR) Parainfluenza 3 (PCR) Parainfluenza 4 (PCR) RSV (PCR) Entero/Rhino (PCR) PFSH Medical History Insomnia, unspecified MDD (major depressive disorder), recurrent episode, moderate PTSD (post-traumatic stress disorder) Fatigue Sepsis Dyspnea on exertion Acute reaction to situational stress Unintentional weight loss Nausea & vomiting Secondhand smoke exposure Lichen sclerosus et atrophicus Microscopic hematuria Urge incontinence Hx of migraine headaches History of depression History of chronic urinary tract infection History of arthritis Peripheral neuropathy Depression Hyperlipidemia Fibromyalgia Hypertension Lower leg edema Diabetes Surgical History Hx of abdominal hysterectomy Hx of breast biopsy Hx of total knee replacement Hx of cholecystectomy Hx of appendectomy Family History Mother Cancer CVA (cerebral vascular accident) Hyperlipidemia Hypertension Father Hypertension Hyperlipidemia CAD (coronary artery disease) Sister Hyperlipidemia Hypertension Diabetes mellitus Multiple kidney stones Migraines Brother Hyperlipidemia Hypertension Migraines Eczema Social History marital status: number of children: 4 household members: none lives independently: Yes Smoking Status: Never smoker alcohol intake: current caffeine: Yes Type(s) of exercise: walking frequency: 3-4 times per week duration: 15-30 minutes/day Assessment & Plan Assessment & Plan narrative: 1. Acute onset of shortness of breath Unclear etiology overall. CT PE was negative for pulmonary embolism. She has no evidence of pneumonia or congestive heart failure. Echo was just done several days ago. She does have a history of asthma but has no wheezing or other obvious signs of asthma exacerbation. Respiratory panel was negative for viral illness. For now will continue IV azithromycin. Will also continue IV Solu-Medrol though would have a low threshold for discontinuation. We will order a nuclear stress test which can hopefully be done tomorrow to further assess her cardiac status given her shortness of breath being exertional in nature. She has also had ongoing lightheadedness. She is a diabetic and is certainly at risk for cardiac disease. A troponin has been ordered and was negative x1. 2. Lactic acidosis At this time as she has no clear evidence of infection, she does not meet criteria for sepsis. Repeat lactate was up to 4.1. With ongoing hydration it is now down to 1.9. Will continue monitoring for any symptoms or signs infection. 3. Insulin-dependent diabetes mellitus Insulin pump was discontinued as her CGM was malfunctioning. Will continue Lantus and fingersticks and sliding scale. 4. Hypertension Blood pressures are normotensive. Will plan to continue her usual home meds. 5. Depression She is supposed to see her psychiatrist on Sunday at the clinic. She notes she is feeling as though her depression is not well controlled. She is asking to see if the psychiatrist would come and see her in the inpatient setting since she will likely be in the hospital still. Continue Cymbalta and Seroquel at bedtime 6. Abnormal thyroid ultrasound She is slated for outpatient biopsy in the coming weeks Code status Full Prophylaxis Continue Lovenox Disposition Acute care Time-Based Coding :: [TOTAL MINUTES] spent with patient and on the chart (including review of chart, obtaining history, exam, reviewing outside data, placing orders, documenting exam and treatment plan, and counseling patient) on [DATE]. Quality VTE Deep Vein Thrombosis/Pulmonary Embolism Present on Admission: Yes
[2025-04-26 18:38] LABS: Troponin I < 0.012 ng/mL (0.01-0.034)
[2025-04-26] MEDS: SENNOSIDES 8.6 MG TABLET 17.2 MG PO (20:17)
[2025-04-26] MEDS: KETOCONAZOLE 2% CREAM 15 GM 1 APPLIC TOP (20:21)
[2025-04-26] MEDS: CLOBETASOL 0.05% CREAM 15 GM 1 APPLIC TOP (20:22)
[2025-04-26] MEDS: methylPREDNISolone succ 125 MG/2 ML VIAL 40 MG IV (23:21)
[2025-04-27] VITALS (11 sets, daily range): BP systolic 119–128; BP diastolic 64–87; PULSE 100–129; RESP 16–20; TEMP 36.3–36.7; O2SAT 92–95
[2025-04-27] MEDS: methylPREDNISolone succ 125 MG/2 ML VIAL 40 MG IV ×3 (06:08→23:41)
[2025-04-27 06:22] LABS: Add Manual Diff / Slide Review NO; Hematocrit 34.8 % (36-46); Hemoglobin 11.7 g/dL (12.0-16.0); Lymphocytes Absolute Auto 900 /uL (1100-4500); Mean Corpuscular HGB Conc 33.7 % (30-36); Mean Corpuscular Hemoglobin 30.4 PG (26-34); Mean Corpuscular Volume 90.3 fL (80-100); Platelet Count 230 X10^3/uL (150-400)
[2025-04-27 06:36] LABS: Blood Urea Nitrogen 29 mg/dL (7-17); Calcium 8.9 mg/dL (8.4-10.2); Carbon Dioxide 23 mmol/L (22-32); Chloride 105 mmol/L (98-107); Estimated Glomerular Filt Rate > 60 mL/min (>60); Glucose 367 mg/dL (70-99); HEMOLYSIS 16 (0-50); Magnesium 2.1 mg/dL (1.6-2.3); Potassium 4.7 mmol/L (3.4-5.1); Sodium 134 mmol/L (137-145)
--- NOTE | 2025-04-27 07:23 | PM.PN.1 ---
Subjective Subjective Interval history: Summary: 79-year-old female with insulin-dependent diabetes mellitus type 2, hypertension, fibromyalgia, depression, asthma, history of stroke in 2010 and 2015, hospital admission in mid March for benign positional vertigo orthostatic hypotension and pansensitive E coli UTI, as well as a another hospitalization at the end of last month for E coli UTI, severe constipation, acute kidney injury and dehydration. She was admitted early this morning with shortness of breaths, lactic acidosis and concern for sepsis. She reported she was up having a bowel movement yesterday morning without difficulty but when she got up to return back to bed, she became very short of breath, developed chest pressure, and her voice became very hoarse. She used her inhaler 3 times without relief. EMS was called and she received 3 nebulizer treatments without relief. In the emergency department she had a white blood cell count of 15.4, sodium 132, BUN 28, creatinine 1.05, elevated blood sugars in the mid to high 300s, initial lactate of 3.1, CT of the abdomen and pelvis revealing a possible trace pericardial effusion, CT pulmonary angiogram revealing no evidence of pulmonary embolism, aortic aneurysm, or dissection. There is a small hiatal hernia and a hypertrophic thyroid. Follow-up lactate was 3.9. She is admitted further care. Echo done last week revealed an EF of 70 75%, normal diastolic function, CVP around 3. No significant valvular abnormalities. She is scheduled for a stress test on an outpatient basis with the 1st part she states being done tomorrow and the remainder being done sometime in the next week. She recently had an abnormal thyroid ultrasound done and has biopsies scheduled for the next week or so. She was admitted and placed on IV steroids, breathing treatments, and azithromycin. Flu a, B, RSV, COVID rale negative as was her respiratory panel. UA was negative as well. S: She was feeling a bit better today. No dyspnea at rest. No chest pain. She was completed day 1 of a 2 day stress test. Her sugars are still somewhat high. O: NAD, alert and oriented. Fluent speech. Lungs are clear, normal rate and effort. Heart is regular, no murmur gallop or rub. Abdomen is soft, non distended. Extremities are free of edema. ECHO: EF of 70 75%, normal diastolic function, CVP around 3. A/P: 1. Acute onset of shortness of breath, improved. Unclear etiology overall. CT PE was negative for pulmonary embolism. She has no evidence of pneumonia or congestive heart failure. Echo was just done several days ago. She does have a history of asthma but has no wheezing or other obvious signs of asthma exacerbation. 2. Lactic acidosis, improved. At this time as she has no clear evidence of infection, she does not meet criteria for sepsis. Repeat lactate was up to 4.1. With ongoing hydration it is now down to 1.9. Will continue monitoring for any symptoms or signs infection. 3. Insulin-dependent diabetes mellitus with hyperglycemia, improved. Insulin pump was discontinued as her CGM was malfunctioning. Will continue Lantus and fingersticks and sliding scale. 4. Hypertension, stable. Blood pressures are normotensive. Will plan to continue her usual home meds. 5. Depression, stable. She is supposed to see her psychiatrist on Sunday at the clinic. She notes she is feeling as though her depression is not well controlled. She is asking to see if the psychiatrist would come and see her in the inpatient setting since she will likely be in the hospital still. Continue Cymbalta and Seroquel at bedtime 6. Abnormal thyroid ultrasound, stable. She is slated for outpatient biopsy in the coming weeks PLAN: -2 day nuclear stress test. -Continue Abx and bronchodilators. Code status Full Prophylaxis Continue Lovenox Exam Vital Signs (past 8 hours): - 04/26/25 23:52 04/27/25 06:36 Temperature 97.2 F L 97.4 F L Pulse Rate 107 H 105 H Respiratory Rate 18 18 Blood Pressure 121/68 127/64 Pulse Oximetry 94 92 Oxygen Flow Rate 0 0 Fraction of Inspired Oxygen 21 SaO2/FiO2 Ratio 447 Oxygen Delivery Method Room Air Oxygen Flow Rate 0 Narrative Exam Narrative: NAD, alert and oriented. Fluent speech. Lungs are clear, normal rate and effort. Heart is regular, no murmur gallop or rub. Abdomen is soft, non distended. Extremities are free of edema. Objective Labs 04/27/25 05:49 04/27/25 05:49 Labs: Laboratory Results - last 24 hr 04/26/25 04/26/25 04/26/25 07:49 08:27 10:54 WBC 15.4 H RBC 4.33 Hgb 13.0 Hct 39.3 MCV 90.6 MCH 29.9 MCHC 33.0 RDW 14.0 Plt Count 237 Neut % (Auto) 90.9 H Lymph % (Auto) 8.3 L [place] % (Auto) 0.4 L Eos % (Auto) 0.0 L Baso % (Auto) 0.4 Neut # (Auto) 44467 H Lymph # (Auto) 1300 [place] # (Auto) 100 Eos # (Auto) 0 Baso # (Auto) 100 Sodium Potassium Chloride Carbon Dioxide BUN Creatinine Estimated GFR BUN/Creatinine Ratio Glucose POC Whole Bld Glucose 399 H Lactate 4.0 H 4.1 H* Calcium Magnesium Troponin I Chlamy pneumoniae PCR Adenovirus (PCR) B. pertussis DNA (PCR) B.parapertussis DNA PCR Coronavirus OC43 (PCR) Coronavirus HKU1 (PCR) Coronavirus 229E (PCR) SARS-CoV-2 (PCR) Coronavirus NL63 (PCR) Human Metapneumovir PCR Influenza Type A (PCR) Influenza Type B (PCR) M. pneumoniae (PCR) Parainfluenza 1 (PCR) Parainfluenza 2 (PCR) Parainfluenza 3 (PCR) Parainfluenza 4 (PCR) RSV (PCR) Entero/Rhino (PCR) 04/26/25 04/26/25 04/26/25 11:05 11:41 13:16 WBC RBC Hgb Hct MCV MCH MCHC RDW Plt Count Neut % (Auto) Lymph % (Auto) [place] % (Auto) Eos % (Auto) Baso % (Auto) Neut # (Auto) Lymph # (Auto) [place] # (Auto) Eos # (Auto) Baso # (Auto) Sodium Potassium Chloride Carbon Dioxide BUN Creatinine Estimated GFR BUN/Creatinine Ratio Glucose POC Whole Bld Glucose 365 H Lactate Calcium Magnesium Troponin I < 0.012 Chlamy pneumoniae PCR Not detected Adenovirus (PCR) Not detected B. pertussis DNA (PCR) Not detected B.parapertussis DNA PCR Not detected Coronavirus OC43 (PCR) Not detected Coronavirus HKU1 (PCR) Not detected Coronavirus 229E (PCR) Not detected SARS-CoV-2 (PCR) Not detected Coronavirus NL63 (PCR) Not detected Human Metapneumovir PCR Not detected Influenza Type A (PCR) Not detected Influenza Type B (PCR) Not detected M. pneumoniae (PCR) Not detected Parainfluenza 1 (PCR) Not detected Parainfluenza 2 (PCR) Not detected Parainfluenza 3 (PCR) Not detected Parainfluenza 4 (PCR) Not detected RSV (PCR) Not detected Entero/Rhino (PCR) Not detected 04/26/25 04/26/25 04/26/25 16:18 16:43 19:40 WBC RBC Hgb Hct MCV MCH MCHC RDW Plt Count Neut % (Auto) Lymph % (Auto) [place] % (Auto) Eos % (Auto) Baso % (Auto) Neut # (Auto) Lymph # (Auto) [place] # (Auto) Eos # (Auto) Baso # (Auto) Sodium Potassium Chloride Carbon Dioxide BUN Creatinine Estimated GFR BUN/Creatinine Ratio Glucose POC Whole Bld Glucose 332 H 347 H Lactate 1.9 Calcium Magnesium Troponin I < 0.012 Chlamy pneumoniae PCR Adenovirus (PCR) B. pertussis DNA (PCR) B.parapertussis DNA PCR Coronavirus OC43 (PCR) Coronavirus HKU1 (PCR) Coronavirus 229E (PCR) SARS-CoV-2 (PCR) Coronavirus NL63 (PCR) Human Metapneumovir PCR Influenza Type A (PCR) Influenza Type B (PCR) M. pneumoniae (PCR) Parainfluenza 1 (PCR) Parainfluenza 2 (PCR) Parainfluenza 3 (PCR) Parainfluenza 4 (PCR) RSV (PCR) Entero/Rhino (PCR) 04/27/25 05:49 WBC 15.6 H RBC 3.86 L Hgb 11.7 L Hct 34.8 L MCV 90.3 MCH 30.4 MCHC 33.7 RDW 14.1 Plt Count 230 Neut % (Auto) 92.2 H Lymph % (Auto) 6.0 L [place] % (Auto) 1.6 L Eos % (Auto) 0.0 L Baso % (Auto) 0.2 Neut # (Auto) 54716 H Lymph # (Auto) 900 L [place] # (Auto) 200 Eos # (Auto) 0 Baso # (Auto) 0 Sodium 134 L Potassium 4.7 Chloride 105 Carbon Dioxide 23 BUN 29 H Creatinine 0.92 Estimated GFR > 60 BUN/Creatinine Ratio 31.5 H Glucose 367 H POC Whole Bld Glucose Lactate Calcium 8.9 Magnesium 2.1 Troponin I Chlamy pneumoniae PCR Adenovirus (PCR) B. pertussis DNA (PCR) B.parapertussis DNA PCR Coronavirus OC43 (PCR) Coronavirus HKU1 (PCR) Coronavirus 229E (PCR) SARS-CoV-2 (PCR) Coronavirus NL63 (PCR) Human Metapneumovir PCR Influenza Type A (PCR) Influenza Type B (PCR) M. pneumoniae (PCR) Parainfluenza 1 (PCR) Parainfluenza 2 (PCR) Parainfluenza 3 (PCR) Parainfluenza 4 (PCR) RSV (PCR) Entero/Rhino (PCR) [facility], [facility] Medical History Insomnia, unspecified MDD (major depressive disorder), recurrent episode, moderate PTSD (post-traumatic stress disorder) Fatigue Sepsis Dyspnea on exertion Acute reaction to situational stress Unintentional weight loss Nausea & vomiting Secondhand smoke exposure Lichen sclerosus et atrophicus Microscopic hematuria Urge incontinence Hx of migraine headaches History of depression History of chronic urinary tract infection History of arthritis Peripheral neuropathy Depression Hyperlipidemia Fibromyalgia Hypertension Lower leg edema Diabetes Surgical History Hx of abdominal hysterectomy Hx of breast biopsy Hx of total knee replacement Hx of cholecystectomy Hx of appendectomy Family History Mother Cancer CVA (cerebral vascular accident) Hyperlipidemia Hypertension Father Hypertension Hyperlipidemia CAD (coronary artery disease) Sister Hyperlipidemia Hypertension Diabetes mellitus Multiple kidney stones Migraines Brother Hyperlipidemia Hypertension Migraines Eczema Social History marital status: number of children: 4 household members: none lives independently: Yes alcohol intake: current caffeine: Yes Type(s) of exercise: walking frequency: 3-4 times per week duration: 15-30 minutes/day Assessment & Plan Time-Based Coding :: [TOTAL MINUTES] spent with patient and on the chart (including review of chart, obtaining history, exam, reviewing outside data, placing orders, documenting exam and treatment plan, and counseling patient) on [DATE]. Quality VTE Deep Vein Thrombosis/Pulmonary Embolism Present on Admission: Yes
[2025-04-27] MEDS: ASPIRIN EC 81 MG TABLET PO (08:26)
[2025-04-27] MEDS: ATORVASTATIN 20 MG TABLET 80 MG PO (08:27)
[2025-04-27] MEDS: ENOXAPARIN 40 MG/0.4 ML SYRINGE SUBCUT ×2 (08:28→21:45)
[2025-04-27] MEDS: INSULIN LISPRO 100 UNIT/ML 3ML VIAL SUBCUT ×5 (08:28→21:43)
[2025-04-27] MEDS: INSULIN GLARGINE 100 UNIT/ML 3ML PEN 30 UNIT SUBCUT (08:29)
[2025-04-27] MEDS: ALBUTEROL/IPRATROPIUM 3 ML AMPUL INH ×2 (08:44→19:39)
[2025-04-27] MEDS: ONDANSETRON 4 MG/2 ML INJ IV (11:14)
[2025-04-27] MEDS: INSULIN GLARGINE 100 UNIT/ML 3ML PEN 10 UNIT SUBCUT (12:07)
[2025-04-27] MEDS: INSULIN LISPRO 100 UNIT/ML 3ML VIAL 8 UNIT SUBCUT ×2 (12:08→17:01)
[2025-04-27] MEDS: ACETAMINOPHEN 325 MG TABLET 650 MG PO ×2 (12:09→21:45)
--- NOTE | 2025-04-27 14:07 | CM.DPC ---
DCP SNF Planning: Per MD, pt getting two part stress test today and tomorrow and not yet stable for discharge. [facility] called [facility] per pt request and updated that pt admitted and has scheduled appt with therapist Lisa tomorrow and they confirm they have been trying to get ahold of the pt anyways to rescheduled and alerted them that pt is admitted. Met bedside with pt and provided current upcoming openings for therapy with Lisa this week and requested she call [facility] herself now to discuss and schedule and pt appreciative. [facility]ves [facility] auth. Pt states she has also called [facility] staff and updated them on her status and potential for SNF at d/ and she states she will keep them updated. Hand Sprayer Susana met bedside with pt and discussed her blood sugars and challenges with her insulin pump and meter and will discuss with Renay Pereyra Shade Bander tomorrow when she is back in the office and will continue to follow with pt. [facility] confirms that auth was submitted 04/26 yesterday and still pending determination through [employer]. PASRR completed and signed by . Cynthia Taylor MSW
[2025-04-27] MEDS: AZITHROMYCIN 500 MG in SODIUM CHLORIDE 0.9% 250 ML 250 MG IV (14:12)
--- NOTE | 2025-04-27 14:31 | DIET.CONS ---
Dietary Consultation Note Admission Date: 04/26/2025 05:39 Assessment: 79 y F admitted for SOB. Dietitian screened d/t checking in on pt's DM equipment. Met with pt at bedside this morning. Reports coming into ED and her CGM was reading BG in the 200s, but finger prick in ED showed BGs in the 400s. Night hospitalist then recc d/c of insulin pump and cgm d/t not working correctly.Pt showed this RD where her insulin pump and CGM had been placed before removing them. CGM was placed on stomach instead of back of arm. Pt was switched to subq lantus/humalog. Pt reports feeling overwhelmed with new medical issues and hospital visits lately, unsure she wants to continue with insulin pump/ would like to have a different CGM (dexcom). Pt following with DM educator in OP. Pharmacist noted high BGs in 300s today and adjusted insulin dosing accordingly. Pt on methylprednisolone. Ht: 172.72 cm Wt: 126.121 kg BMI: 42.3 UBW: - Last BM: () MNA: Rodolfo Score: 19 Diet: 04/27/25 00:01 NPO Diet Diet Modifications: NPO Type: NPO after Midnight 04/27/25 Breakfast Carbohydrate Consistent Diet Diet Modifications: NO CAFFEINE- NO chocolate, tea, coffee Carbohydrate level: Medium (3 CHO) Reflex DM orders: No Food Texture: Level 7 - Regular Liquid Consistency: Level 0 - Thin Nutrition Percent Meal Consumed 100% 04/27/25 14:00 Percent Meal Consumed 100% 04/27/25 09:11 Percent Meal Consumed 100% 04/26/25 18:21 Percent Meal Consumed 100% 04/26/25 15:42 Percent Meal Consumed 100% 04/26/25 13:04 Labs: RBC 3.86 X10^6/uL (4.0-5.2) L 04/27/25 05:49 Hgb 11.7 g/dL (12.0-16.0) L 04/27/25 05:49 Hct 34.8 % (36-46) L 04/27/25 05:49 Creatinine 0.92 mg/dL (0.52-1.04) 04/27/25 05:49 Lactate 1.9 mmol/L (0.7-2.1) 04/26/25 16:18 Nutrition Diagnosis: Altered nutrition related lab values (BG) r/t medication and CGM incorrectly reading BG aeb BG in 400s in ED and BG in 300s today. Interventions: 1. Coordination of care with pharmacy and DM educator Monitoring/Evaluations: BG Electronically Signed by: Susana Cole 04/27/25 14:31 Clinical Dietitian [address] [address]
[2025-04-27] MEDS: SENNOSIDES 8.6 MG TABLET 17.2 MG PO (21:47)
[2025-04-28] VITALS (8 sets, daily range): BP systolic 130–149; BP diastolic 63–75; PULSE 93–104; RESP 16–20; TEMP 36.2–36.4; O2SAT 92–96
[2025-04-28 06:08] LABS: Add Manual Diff / Slide Review NO; Hematocrit 34.3 % (36-46); Hemoglobin 11.6 g/dL (12.0-16.0); Lymphocytes Absolute Auto 900 /uL (1100-4500); Mean Corpuscular HGB Conc 33.8 % (30-36); Mean Corpuscular Hemoglobin 30.4 PG (26-34); Mean Corpuscular Volume 89.9 fL (80-100); Platelet Count 242 X10^3/uL (150-400)
[2025-04-28 06:24] LABS: Blood Urea Nitrogen 35 mg/dL (7-17); Calcium 8.9 mg/dL (8.4-10.2); Carbon Dioxide 24 mmol/L (22-32); Chloride 104 mmol/L (98-107); Estimated Glomerular Filt Rate > 60 mL/min (>60); Glucose 332 mg/dL (70-99); HEMOLYSIS < 15 (0-50); Potassium 4.8 mmol/L (3.4-5.1); Sodium 134 mmol/L (137-145)
[2025-04-28] MEDS: methylPREDNISolone succ 125 MG/2 ML VIAL 40 MG IV ×3 (06:41→23:53)
[2025-04-28] MEDS: ASPIRIN EC 81 MG TABLET PO (09:50)
[2025-04-28] MEDS: ATORVASTATIN 20 MG TABLET 80 MG PO (09:50)
[2025-04-28] MEDS: ENOXAPARIN 40 MG/0.4 ML SYRINGE SUBCUT ×2 (09:51→20:53)
[2025-04-28] MEDS: INSULIN LISPRO 100 UNIT/ML 3ML VIAL SUBCUT ×4 (09:57→20:53)
[2025-04-28] MEDS: INSULIN GLARGINE 100 UNIT/ML 3ML PEN 50 UNIT SUBCUT (09:58)
--- NOTE | 2025-04-28 12:22 | PM.PN.1 ---
Subjective Subjective Interval history: Summary: 9-year-old female with insulin-dependent diabetes mellitus type 2, hypertension, fibromyalgia, depression, asthma, history of stroke in 2010 and 2015, hospital admission in mid March for benign positional vertigo orthostatic hypotension and pansensitive E coli UTI, as well as a another hospitalization at the end of last month for E coli UTI, severe constipation, acute kidney injury and dehydration. She was admitted early this morning with shortness of breaths, lactic acidosis and concern for sepsis. She reported she was up having a bowel movement yesterday morning without difficulty but when she got up to return back to bed, she became very short of breath, developed chest pressure, and her voice became very hoarse. She used her inhaler 3 times without relief. EMS was called and she received 3 nebulizer treatments without relief. In the emergency department she had a white blood cell count of 15.4, sodium 132, BUN 28, creatinine 1.05, elevated blood sugars in the mid to high 300s, initial lactate of 3.1, CT of the abdomen and pelvis revealing a possible trace pericardial effusion, CT pulmonary angiogram revealing no evidence of pulmonary embolism, aortic aneurysm, or dissection. There is a small hiatal hernia and a hypertrophic thyroid. Follow-up lactate was 3.9. She is admitted further care. Echo done last week revealed an EF of 70 75%, normal diastolic function, CVP around 3. No significant valvular abnormalities. She is scheduled for a stress test on an outpatient basis with the 1st part she states being done tomorrow and the remainder being done sometime in the next week. She recently had an abnormal thyroid ultrasound done and has biopsies scheduled for the next week or so. She was admitted and placed on IV steroids, breathing treatments, and azithromycin. Flu a, B, RSV, COVID PCR negative as was her respiratory panel. UA was negative as well. 04/27: Fatigued and somewhat short of breath with minimal wheezing. A stress test was ordered and the 1st day of a 2 day study was completed. S: She feels general fatigue and some dyspnea with exertion. No chest pain. She was scheduled to have thyroid biopsies of nodules at the end of the week. O: NAD, alert and oriented. Fluent speech. Lungs are clear, normal rate and effort. Heart is regular, no murmur gallop or rub. Abdomen is soft, non distended. Extremities are free of edema. Imaging: ECHO: EF of 70 75%, normal diastolic function, CVP around 3. 04/28 stress thal: Likely normal study. Normal ECG response. She does have some attenuation in the inferior wall which is felt to relate to breast shadow. A/P: 1. Acute onset of shortness of breath, improved. Unclear etiology overall. CT PE was negative for pulmonary embolism. She has no evidence of pneumonia or congestive heart failure. Echo was just done several days ago. She does have a history of asthma but has no wheezing or other obvious signs of asthma exacerbation. 2. Lactic acidosis, improved. At this time as she has no clear evidence of infection, she does not meet criteria for sepsis. Repeat lactate was up to 4.1. With ongoing hydration it is now down to 1.9. Will continue monitoring for any symptoms or signs infection. 3. Insulin-dependent diabetes mellitus with hyperglycemia, improved. Insulin pump was discontinued as her CGM was malfunctioning. Will continue Lantus and fingersticks and sliding scale. 4. Hypertension, stable. Blood pressures are normotensive. Will plan to continue her usual home meds. 5. Depression, stable. She is supposed to see her psychiatrist on Sunday at the clinic. She notes she is feeling as though her depression is not well controlled. She is asking to see if the psychiatrist would come and see her in the inpatient setting since she will likely be in the hospital still. Continue Cymbalta and Seroquel at bedtime 6. Abnormal thyroid ultrasound, stable. She is slated for outpatient biopsy in the coming weeks PLAN: -continue treatment for asthma overnight and anticipate discharge back to her assisted living in [place] tomorrow. Exam Vital Signs (past 8 hours): - 04/28/25 04:32 04/28/25 07:00 04/28/25 08:00 Temperature 97.6 F Pulse Rate 94 H 97 H Respiratory Rate 16 16 Blood Pressure 139/75 137/73 Pulse Oximetry 93 95 Oxygen Delivery Method Room Air Oxygen Flow Rate 0 0 Fraction of Inspired Oxygen 21 SaO2/FiO2 Ratio 442 Oxygen Delivery Method Room Air Oxygen Flow Rate 0 Objective Labs 04/28/25 05:54 04/28/25 05:54 Labs: Laboratory Results - last 24 hr 04/27/25 04/27/25 04/28/25 16:45 19:34 05:54 WBC 13.1 H RBC 3.82 L Hgb 11.6 L Hct 34.3 L MCV 89.9 MCH 30.4 MCHC 33.8 RDW 14.1 Plt Count 242 Neut % (Auto) 91.1 H Lymph % (Auto) 7.0 L [place] % (Auto) 1.6 L Eos % (Auto) 0.0 L Baso % (Auto) 0.3 Neut # (Auto) 03959 H Lymph # (Auto) 900 L [place] # (Auto) 200 Eos # (Auto) 0 Baso # (Auto) 0 Sodium 134 L Potassium 4.8 Chloride 104 Carbon Dioxide 24 BUN 35 H Creatinine 0.93 Estimated GFR > 60 BUN/Creatinine Ratio 37.6 H Glucose 332 H POC Whole Bld Glucose 258 H D 209 H Calcium 8.9 04/28/25 07:30 WBC RBC Hgb Hct MCV MCH MCHC RDW Plt Count Neut % (Auto) Lymph % (Auto) [place] % (Auto) Eos % (Auto) Baso % (Auto) Neut # (Auto) Lymph # (Auto) [place] # (Auto) Eos # (Auto) Baso # (Auto) Sodium Potassium Chloride Carbon Dioxide BUN Creatinine Estimated GFR BUN/Creatinine Ratio Glucose POC Whole Bld Glucose 341 H D Calcium PFSH Medical History Insomnia, unspecified MDD (major depressive disorder), recurrent episode, moderate PTSD (post-traumatic stress disorder) Fatigue Sepsis Dyspnea on exertion Acute reaction to situational stress Unintentional weight loss Nausea & vomiting Secondhand smoke exposure Lichen sclerosus et atrophicus Microscopic hematuria Urge incontinence Hx of migraine headaches History of depression History of chronic urinary tract infection History of arthritis Peripheral neuropathy Depression Hyperlipidemia Fibromyalgia Hypertension Lower leg edema Diabetes Surgical History Hx of abdominal hysterectomy Hx of breast biopsy Hx of total knee replacement Hx of cholecystectomy Hx of appendectomy Family History Mother Cancer CVA (cerebral vascular accident) Hyperlipidemia Hypertension Father Hypertension Hyperlipidemia CAD (coronary artery disease) Sister Hyperlipidemia Hypertension Diabetes mellitus Multiple kidney stones Migraines Brother Hyperlipidemia Hypertension Migraines Eczema Social History marital status: number of children: 4 household members: none lives independently: Yes alcohol intake: current caffeine: Yes Type(s) of exercise: walking frequency: 3-4 times per week duration: 15-30 minutes/day Assessment & Plan Time-Based Coding :: [TOTAL MINUTES] spent with patient and on the chart (including review of chart, obtaining history, exam, reviewing outside data, placing orders, documenting exam and treatment plan, and counseling patient) on [DATE]. Quality VTE Deep Vein Thrombosis/Pulmonary Embolism Present on Admission: Yes
[2025-04-28] MEDS: ACETAMINOPHEN 325 MG TABLET 650 MG PO (12:33)
--- NOTE | 2025-04-28 12:56 | PT-IP ANOTE ---
checked on pt this morning but pt was able to go for a stress test. checked on pt after stress test but stated that she has a headache and is exhausted after the test. will check back later this afternoon.
[2025-04-28] MEDS: INSULIN LISPRO 100 UNIT/ML 3ML VIAL 10 UNIT SUBCUT (13:55)
[2025-04-28] MEDS: ALBUTEROL/IPRATROPIUM 3 ML AMPUL INH ×2 (14:16→18:25)
[2025-04-28] MEDS: AZITHROMYCIN 500 MG in SODIUM CHLORIDE 0.9% 250 ML 250 MG IV (14:31)
--- NOTE | 2025-04-28 14:40 | PT.IPTN ---
Current Diagnoses Sepsis, unspecified organism (04/26/25) Physical Therapy Treatment Note M2 PT-IP Current Condition Start: 04/26/25 11:46 Freq: NEEDED Status: Active Protocol: Document 04/26/25 11:47 KJ (Rec: 04/26/25 11:57 KJ [id number]) Physical Therapy Current Condition Current Condition Evaluation Date 04/26/25 Treatment Diagnosis impaired mobility M3 PT-IP Subjective Start: 04/26/25 11:46 Freq: NEEDED Status: Active Protocol: Document 04/28/25 14:40 AB (Rec: 04/28/25 16:29 AB [id number]) Subjective Physical Therapy Visit Type Type Treatment Note Visit Start Time 14:40 Visit Stop Time 15:10 Number of STOCK PARTS FABRICATOR Visits 0 Physical Therapy Visit Comments Patient Comments agreeable to do PT M4 PT-IP Mobility and Gait Start: 04/26/25 11:46 Freq: NEEDED Status: Active Protocol: Document 04/28/25 14:40 AB (Rec: 04/28/25 16:29 AB [id number]) PT-Bed Mobility Assessment Supine to Sit Supine to Sit Standby Assistance Sit to Supine Sit to Supine Standby Assistance PT-Transfer Assessment Sit to and From Stand Sit to and from Moderate Assistance,1 Person Assistance,Use of Upper Stand Extremities Equipment Transfer Assistive Gait Belt,Front Wheeled Walker Device Orthotic/Prosthetic No Devices or Brace: Transfers Transfer Destination Toilet Transfer Technique ambulated Transfer Ability Level of Assist Minimal Assistance,1 Person Assistance,Use of Upper Extremities Comments Mobility Comments pt in bed and agreeable to do PT. LA restin- 100bpm O2 sat: 97%. completed supine to sit with HOB elevated SBA. (+) SOB. LA: 113 pt rested sitting on EOB SBA. sit to stand mod A and ambulated to the toilet using FWW min A and cues. (+) antalgic gait. pt stated that she has chronic L hip pain needing surgery and LLE sometimes give out on her. sit to stand from the toilet using grab bar mod A. NAC assisted pt with hygiene care and brief management. pt ambulated using FWW towards the sink min A. able to stand CGA while completing handwashing. pt ambulated back to EOB using FWW min A and cues. (+) SOB. O2 sat 97% LA: 127-128. LA decreasing after a few seconds of rest 111 bpm. pt requested to just lay back in bed. sit to supine SBA. positioned pt in bed. call light and table placed within reach. LA at end of tx session : 104 Gait Assessment Gait Gait Assistance Minimum Assistance Required: Distance (Feet) 20 Able to Maintain Yes Weight Bearing Status During Gait Assistive Devices Assistive Device Gait Belt,Front Wheeled Walker Orthotic/Prosthetic No Devices or Brace: Gait Deviations General Gait Pattern Antalgic,Decreased Stride Length,Decreased Feet Clearance,Step-to Gait Factors Limiting Gait Function Factors Limiting Decreased Activity Tolerance,Decreased Strength, Gait Function Difficulty Following Directions,Limited Range of Motion ,Pain,Poor Balance,Poor Safety Awareness M5 PT-IP Objective Assessments Start: 04/26/25 11:46 Freq: NEEDED Status: Active Protocol: Document 04/26/25 11:47 KJ (Rec: 04/26/25 11:57 KJ [id number]) Orientation Orientation/Cognition Level of Alertness Alert Orientation Name,Age,Birthday,Month,Date,Year,Day of Week,Place, Situation Language Function No Deficits Noted Ability Memory Description No Deficits Noted Comments wheezing during and after talking Gross Range of Motion Upper Extremity ROM Assessment Right Impaired Impairments decreased AROM in R shoulder Lower Extremity ROM Assessment Right Impaired Impairments R hip painful Strength Upper Extremity Strength Assessment Right Impaired Shoulder decreased in R shoulder flex, abd, int and ext rotation Lower Extremity Strength Assessment Right Impaired Hip r impaired Knee WFL Ankle WFL M6 PT-IP Treatment Start: 04/26/25 11:46 Freq: NEEDED Status: Active Protocol: Document 04/28/25 14:40 AB (Rec: 04/28/25 16:29 AB [id number]) Physical Therapy Treatment Education Education Provided Safety M7 PT-IP Assessment and Plan Start: 04/26/25 11:46 Freq: NEEDED Status: Active Protocol: Document 04/28/25 14:40 AB (Rec: 04/28/25 16:29 AB [id number]) PT Summary Assessment and Plan Potential Rehabilitation Fair Potential Summary Impairments Pain,ROM,Strength,Balance,Coordination,Sensation,Tone, Cognition,Bed Mobility,Transfers,Gait,Activity Tolerance Progress Towards Slow Progress due to Pain,Slow Progress due to Medical Goals Issues,Slow Progress due to Activity Tolerance Assessment Summary pt requiring mod A for sit to stand and able to transfers/ambulate using FWW min A and cues but only able to ambulate ~ 20 ft with (+) SOB. O2 sat stable: 97%. LA resting 99-100 bpm and increases to 127-128 after ambulating to the toilet and back. pt has decrease activity tolerance affecting level of assistance. pt will benefit from SNF rehab to improve overall strength and mobility. Goals Bed Mobility Goal Independent Transfer Goal Standby Assistance,Front Wheeled Walker Gait Goal Standby Assistance,Front Wheel Walker Gait Distance 50 Days to Meet Goals 10 Frequency of Treatment Frequency Of Once a Day Treatment Treatment Plan Physical Therapy Bed Mobility Training,Transfer Training,Gait Training, Treatment Plan Therapeutic Exercise,Balance Retraining,Discharge Planning,Neuromuscular Re-ed,Coordination Retraining, Manual Therapy Recommendations To Nursing Amount of Assist 1 Person Assist Needed Discharge Recommendations PT Discharge SNF Rehab Recommendations Transportation Needs Wheelchair/Cabulance at Discharge - PT assist 1
--- NOTE | 2025-04-28 16:05 | DI.NM.S_ITS ---
DATE OF SERVICE: 04/27/2025 NUCLEAR CARDIOLOGY MYOCARDIAL PERFUSION STUDY PROCEDURE: Pharmacologic vasodilator stress and rest myocardial perfusion imaging with gating to assess ejection fraction and regional wall motion. ORDERING PROVIDER: Elaine Helms M.D. INDICATIONS: The patient is a 79-year-old morbidly obese female admitted with shortness of breath. CARDIAC STRESS: Per protocol, 0.4 mg of regadenoson was infused with a normal hemodynamic response. She had no chest discomfort and only minimal dyspnea. Her resting ECG shows sinus rhythm with normal ST segments and there are no significant ST-segment shifts or arrhythmias with stress. Per protocol, 27.5 mCi of technetium-99m Myoview was injected and she was imaged 10 minutes later using a gated SPECT acquisition protocol. The day prior while at rest, she had been injected with 27.4 mCi of technetium-99m Myoview and was imaged 15 minutes later, again using a gated SPECT acquisition protocol. FINDINGS: 1. Raw data: There is fair myocardial tracer uptake but marked breast attenuation artifact that clearly produces significant attenuation artifact. In addition, there may be diaphragmatic attenuation. The lung/heart ratio is normal at 0.25 with a normal TID ratio of 0.91. 2. Quantitated gated SPECT: Post-stress ejection fraction is 91% without any focal wall motion abnormality and specifically, the inferior wall has normal contractility. The resting ejection fraction is 87% with a normal resting end-diastolic volume of 83 mL. 3. Myocardial perfusion imaging: Post-stress supine images show a fairly normal myocardial perfusion pattern except a subtle defect at the base of the inferior wall, extending slightly into the mid inferior wall, but sparing the distal inferior wall in a pattern consistent with diaphragmatic attenuation. Unfortunately, she refused prone imaging to assess for this. The resting images show a more uniform pattern of tracer activity with some improvement in the inferior wall defect, but given its location, it most likely reflects diaphragmatic attenuation artifact. IMPRESSION: 1. Probable normal, low risk, myocardial perfusion study but with reduced sensitivity because of marked attenuation artifact that produces suboptimal image quality. 2. Subtle, reversible perfusion defect at the base of the inferior wall in a pattern most consistent with diaphragmatic attenuation artifact given its location, without prone imaging to assess for this. A small volume of ischemia cannot be entirely excluded, but if present is small and low risk. 3. High normal left ventricular systolic function without any focal wall motion abnormality. Left ventricular volumes appear to be normal. 4. No angina or ECG evidence of ischemia with pharmacologic vasodilator stress. Diomedes Ninfa - SARI/jalil/JESSICA doc#: [id number]/job#: [id number] dd: 04/28/2025 13:06:00 dt: 04/28/2025 15:52:00 DICTATING MD/COPIES TO: Cheko Azevedo MD; Rogers Peterson M.D.; Elaine Helms M.D. COPIES MNE: CYNTHIA; ;
[2025-04-28] MEDS: INSULIN LISPRO 100 UNIT/ML 3ML VIAL 12 UNIT SUBCUT (16:56)
[2025-04-28] MEDS: SENNOSIDES 8.6 MG TABLET 17.2 MG PO (20:53)
[2025-04-29] VITALS (8 sets, daily range): BP systolic 117–138; BP diastolic 61–68; PULSE 88–107; RESP 16–20; TEMP 36.1–36.3; O2SAT 92–95
[2025-04-29 06:29] LABS: Add Manual Diff / Slide Review NO; Hematocrit 35.3 % (36-46); Hemoglobin 12.2 g/dL (12.0-16.0); Lymphocytes Absolute Auto 800 /uL (1100-4500); Mean Corpuscular HGB Conc 34.7 % (30-36); Mean Corpuscular Hemoglobin 31.0 PG (26-34); Mean Corpuscular Volume 89.4 fL (80-100); Platelet Count 231 X10^3/uL (150-400)
[2025-04-29 06:42] LABS: Blood Urea Nitrogen 37 mg/dL (7-17); Calcium 8.6 mg/dL (8.4-10.2); Carbon Dioxide 23 mmol/L (22-32); Chloride 100 mmol/L (98-107); Estimated Glomerular Filt Rate 57 mL/min (>60); Glucose 422 mg/dL (70-99); HEMOLYSIS < 15 (0-50); Potassium 4.7 mmol/L (3.4-5.1); Sodium 131 mmol/L (137-145)
[2025-04-29] MEDS: methylPREDNISolone succ 125 MG/2 ML VIAL 40 MG IV ×2 (06:48→15:07)
[2025-04-29] MEDS: ALBUTEROL/IPRATROPIUM 3 ML AMPUL INH ×2 (07:19→14:16)
--- NOTE | 2025-04-29 08:06 | PM.DS.1 ---
History of Present Illness History of Present Illness Date Patient Seen: 04/29/25 Time Patient Seen: 14:59 Chief complaint: SOB Narrative: 79-year-old female with past medical history of asthma non O2 dependent, insulin-dependent diabetes, hypertension, and hyperlipidemia presents at her assisted facility for increasing cough and shortness of breath with wheezing. Per the report, over the last few days the patient has had symptoms of admission. Patient states that her cough is dry denies any recent fever, chills, nausea, vomiting, diarrhea, chest pain or syncope. Emergency room, the patient remains hemodynamically stable and saturating well on room air. Chest x-ray shows no acute finding. Labs shows a sodium 132 creatinine 0.0 glucose 3995 respiratory panel negative WBC 15,000 lactic acid 3.0. Patient did receive some IV fluid and repeat lactate 3.9. CTA chest abdomen for final result signs of infection likely sprain elevated lactic acid and leukocytosis. CT of the chest however shows trace pericardial effusion. No PE. The patient again was given empiric IV antibiotic with IV ceftriaxone and oral doxycycline. Discharge Providers Provider Date of admission: 04/26/25 05:39 Discharge Date: 04/29/25 Primary care physician: Ellie Elias DO Consults: 04/26/25 07:58 Consult to Physical Therapy Evaluate & Treat Comment: Physician Instructions: Evaluate and Treat 04/26/25 07:59 Consult to Cardio/Pulmonary Rehabilitation Routine Comment: Physician Instructions: Evaluate and treat 04/28/25 12:34 Consult to Home Health Routine Comment: RN, PT, OT Reason For Exam: Resume Home Health Services Discharge provider: John Flanagan MD Summary Hospital Course Hospital Course: Imaging: ECHO: EF of 70 75%, normal diastolic function, CVP around 3. 9/23 stress thal: Likely normal study. Normal ECG response. She does have some attenuation in the inferior wall which is felt to relate to breast shadow. 1. Acute onset of shortness of breath, RAD improved CT PE was negative for pulmonary embolism. She has no evidence of pneumonia or congestive heart failure. Echo was just done several days ago. She does have a history of asthma but has no wheezing or other obvious signs of asthma exacerbation. Symptoms have steadily improved with asthma treatment including IV Solu-Medrol. Prednisone 20 mg b.i.d. for 5 days at discharge. 2. Lactic acidosis, improved. At this time as she has no clear evidence of infection, she does not meet criteria for sepsis. Repeat lactate was up to 4.1. With ongoing hydration it is now down to 1.9. 3. Insulin-dependent diabetes mellitus with hyperglycemia, improved. Insulin pump was discontinued as her CGM was malfunctioning. She was treated with Lantus and lispro. On the day of discharge her morning blood sugar was above 400 so her Lantus and lispro doses were increased. The chart was reviewed for any other possible causes and no other etiology was found. By the afternoon her blood sugars were in the 200-300 range so she was discharged home on a Lantus 40 units twice daily until completing the prednisone and then 20 units twice daily after that. The lispro will be 15 units t.i.d. along with the correctional scale. She has decided not to use the insulin pump because of inconsistencies in the blood sugars compared to fingersticks. 4. Hypertension, stable. Blood pressures are normotensive. Continue her usual home meds. 5. Depression, stable. She is supposed to see her psychiatrist on Sunday at the clinic. She notes she is feeling as though her depression is not well controlled. She is asking to see if the psychiatrist would come and see her in the inpatient setting since she will likely be in the hospital still. Continue Cymbalta and Seroquel at bedtime. 6. Abnormal thyroid ultrasound, stable. She is slated for outpatient biopsy in the coming weeks PLAN: -Discharge back to her assisted living in [place] [employer] this afternoon. Status at Discharge Cognitive/behavioral status at discharge: oriented Functional status at discharge: uses cane/walker Overall status at discharge: patient is progressing back to baseline Time Spent with Patient Time spent: Greater than 30 minutes Exam Vital Signs (past 8 hours): - 04/29/25 04:00 04/29/25 07:21 Temperature 97.1 F L Pulse Rate 89 94 H Respiratory Rate 18 16 Blood Pressure 119/67 Pulse Oximetry 95 93 Oxygen Delivery Method Room Air Oxygen Flow Rate 0 Fraction of Inspired Oxygen 21 Fraction of Inspired Oxygen 21 SaO2/FiO2 Ratio 442 Oxygen Delivery Method Room Air Oxygen Flow Rate 0 Narrative Exam Narrative: Alert and oriented x3. No apparent distress. Mildly anxious. Many questions. Quite worried and somewhat emotional. Heart is regular rate and rhythm without murmur Lungs are clear to auscultation bilaterally Extremities have trace bilateral ankle edema. Objective Labs 04/29/25 05:56 04/29/25 05:56 Labs: Laboratory Results - last 24 hr 04/28/25 04/28/25 04/28/25 12:39 16:24 20:11 WBC RBC Hgb Hct MCV MCH MCHC RDW Plt Count Neut % (Auto) Lymph % (Auto) [place] % (Auto) Eos % (Auto) Baso % (Auto) Neut # (Auto) Lymph # (Auto) [place] # (Auto) Eos # (Auto) Baso # (Auto) Sodium Potassium Chloride Carbon Dioxide BUN Creatinine Estimated GFR BUN/Creatinine Ratio Glucose POC Whole Bld Glucose 274 H 311 H 249 H Calcium 04/29/25 04/29/25 05:56 07:30 WBC 9.0 RBC 3.94 L Hgb 12.2 Hct 35.3 L MCV 89.4 MCH 31.0 MCHC 34.7 RDW 14.2 Plt Count 231 Neut % (Auto) 88.7 H Lymph % (Auto) 8.9 L [place] % (Auto) 2.1 L Eos % (Auto) 0.0 L Baso % (Auto) 0.3 Neut # (Auto) 8000 H Lymph # (Auto) 800 L [place] # (Auto) 200 Eos # (Auto) 0 Baso # (Auto) 0 Sodium 131 L Potassium 4.7 Chloride 100 Carbon Dioxide 23 BUN 37 H Creatinine 1.02 Estimated GFR 57 L BUN/Creatinine Ratio 36.3 H Glucose 422 H POC Whole Bld Glucose 494 H* D Calcium 8.6 PFSH Medical History Insomnia, unspecified MDD (major depressive disorder), recurrent episode, moderate PTSD (post-traumatic stress disorder) Fatigue Sepsis Dyspnea on exertion Acute reaction to situational stress Unintentional weight loss Nausea & vomiting Secondhand smoke exposure Lichen sclerosus et atrophicus Microscopic hematuria Urge incontinence Hx of migraine headaches History of depression History of chronic urinary tract infection History of arthritis Peripheral neuropathy Depression Hyperlipidemia Fibromyalgia Hypertension Lower leg edema Diabetes Surgical History Hx of abdominal hysterectomy Hx of breast biopsy Hx of total knee replacement Hx of cholecystectomy Hx of appendectomy Family History Mother Cancer CVA (cerebral vascular accident) Hyperlipidemia Hypertension Father Hypertension Hyperlipidemia CAD (coronary artery disease) Sister Hyperlipidemia Hypertension Diabetes mellitus Multiple kidney stones Migraines Brother Hyperlipidemia Hypertension Migraines Eczema Social History marital status: number of children: 4 household members: none lives independently: Yes alcohol intake: current caffeine: Yes Type(s) of exercise: walking frequency: 3-4 times per week duration: 15-30 minutes/day Discharge Plan Discharge Plan Patient Disposition: Home Provider Discharge Comment: Follow up with Dr. Elias in 1 week. Discharge orders & Medications Prescriptions: New insulin glargine [Lantus Solostar U-100 Insulin] 100 unit/mL (3 mL) Insulin Pen 40 unit SUBCUT BID Qty: 15 0RF Rx Instructions: Take 40 units twice a day for 5 days and then change to 20 units twice a day ongoing. insulin lispro [Admelog U-100 Insulin lispro] 100 unit/mL Solution 15 unit SUBCUT AC Qty: 10 0RF insulin lispro [Admelog U-100 Insulin lispro] 100 unit/mL Solution See Rx Instructions .ROUTE .COMPLEX Qty: 10 0RF Rx Instructions: Follow the sliding scale that you have been provided with. prednisone 20 mg tablet 20 mg PO BID Qty: 10 0RF Continued duloxetine 60 mg capsule,delayed release(DR/EC) 60 mg PO DAILY Qty: 90 1RF ketoconazole 2 % cream 1 applic topical DAILY PRN (Reason: yeast infection) Qty: 60 4RF quetiapine 50 mg tablet 50 mg PO BEDTIME Qty: 20 11RF lisinopril 40 mg tablet 40 mg PO DAILY Qty: 30 11RF propranolol 20 mg tablet 20 mg PO BEDTIME Qty: 30 11RF Vitamin Plus Low Iron 27 mg iron- 1 mg tablet 1 tab PO DAILY Qty: 30 11RF ondansetron 4 mg tablet,disintegrating 4 mg PO Q6H PRN (Reason: nausea and vomiting) Qty: 14 11RF meclizine 25 mg tablet 25 mg PO TID Qty: 20 11RF glipizide 10 mg tablet 10 mg PO DAILY Qty: 60 11RF Ozempic 0.25 mg or 0.5 mg (2 mg/3 mL) pen injector 0.25 mg SUBCUT QWEEK Qty: 3 0RF Rx Instructions: for 4 weeks fluticasone propionate [Flonase Allergy Relief] 50 mcg/actuation spray,suspension 1 spray intranasal DAILY Qty: 16 0RF Rx Instructions: administer into each nostril aspirin 81 mg tablet,delayed release (DR/EC) 81 mg PO DAILY albuterol sulfate 90 mcg/actuation HFA aerosol inhaler 1 - 2 puff inhalation Q4H PRN (Reason: dyspnea) ipratropium-albuterol 0.5 mg-3 mg(2.5 mg base)/3 mL solution for nebulization 3 ml inhalation Q6H PRN (Reason: shortness of breath) rosuvastatin 40 mg tablet 40 mg PO DAILY amlodipine 10 mg tablet 10 mg PO DAILY clobetasol 0.05 % ointment 1 applic topical BID PRN (Reason: pain (scale score 4-6)) Rx Instructions: apply to R knee methocarbamol 500 mg tablet 500 mg PO BID PRN (Reason: muscle spasm) meloxicam 15 mg tablet 15 mg PO DAILY wixela fluticasone propionate See Rx Instructions .ROUTE .COMPLEX Rx Instructions: 250/50inale two puffs by mouth twice daily acetaminophen 500 mg tablet 1,000 mg PO Q6H PRN (Reason: fever or pain) polyethylene glycol 3350 [Gavilax] 17 gram Powder In Packet 17 g PO DAILY Qty: 30 0RF levothyroxine [Synthroid] 50 mcg Tablet 50 mcg PO DAILY@0600 Qty: 30 0RF sennosides [senna] 8.6 mg Tablet 17.2 mg PO BEDTIME Qty: 60 0RF Discontinued (DME) Omnipod 5 Intro(G6/[id number]) Cartridge See Rx Instructions .Route Qty: 1 0RF Rx Instructions: As directed (DME) Omnipod 5 (G6/Chava 2 Plus) Cartridge See Rx Instructions .Route Qty: 5 6RF Rx Instructions: As directed (DME) FreeStyle Chava 2 Plus Sensor Device See Rx Instructions .Route Qty: 2 6RF Rx Instructions: As directed insulin lispro [Humalog U-100 Insulin] 100 unit/mL solution 65 unit SUBCUT USEASDIRECTD Qty: 15 3RF Rx Instructions: Humalog via insulin pump at 65 units per day. Follow up/Referrals: Elias,Ellie, DO [Primary Care Provider, Family Practice] Diet/Activity/Treatments Diet: Carb-consistent/Diabetic Visit Report/Discharge Packet Stand Alone Forms: Patient Portal/API, Stroke Signs & Symptoms Discharge Data Primary Care Provider: Ellie Elias Attending Provider: Rogers Peterson Admit Date/Time: 04/26/25 05:39 Quality VTE Deep Vein Thrombosis/Pulmonary Embolism Present on Admission: Yes
[2025-04-29] MEDS: INSULIN LISPRO 100 UNIT/ML 3ML VIAL 12 UNIT SUBCUT (08:17)
[2025-04-29] MEDS: INSULIN GLARGINE 100 UNIT/ML 3ML PEN 50 UNIT SUBCUT (08:17)
[2025-04-29] MEDS: INSULIN LISPRO 100 UNIT/ML 3ML VIAL SUBCUT ×2 (08:18→11:50)
[2025-04-29] MEDS: ENOXAPARIN 40 MG/0.4 ML SYRINGE SUBCUT (08:53)
[2025-04-29] MEDS: ASPIRIN EC 81 MG TABLET PO (08:53)
[2025-04-29] MEDS: ACETAMINOPHEN 325 MG TABLET 650 MG PO (08:54)
[2025-04-29] MEDS: ATORVASTATIN 20 MG TABLET 80 MG PO (08:54)
--- NOTE | 2025-04-29 10:40 | CM.DPC ---
DCP Cont. Reviewed EMR and team rounds for pt's medical status and updates. Pt has been medically cleared for d/c back to [facility]. This BODY ROLLING MACHINE TENDER will set-up her transportation through a [employer] voucher for her return back to [facility]. No further needs indicated at this time.
--- NOTE | 2025-04-29 10:56 | PC.NURSE ---
0800 - pt's fingerstick shows 494 and her blood draw from this morning shows blood glucose of 422. Dr. Flanagan made aware. Pharmacist been consulted and suggested to give insulin according to the current orders. They said they will review the order later.
[2025-04-29] MEDS: INSULIN LISPRO 100 UNIT/ML 3ML VIAL 15 UNIT SUBCUT (11:50)
[2025-04-29] MEDS: INSULIN GLARGINE 100 UNIT/ML 3ML PEN 10 UNIT SUBCUT (13:23)
--- NOTE | 2025-04-29 14:04 | PT-IP ANOTE ---
Pt refuses PT this afternoon due to feeling ill. She reports headache and flu like symptoms that she believes are due to high blood sugar.
--- NOTE | 2025-04-29 16:28 | PC.NURSE ---
4260 - Discharge order reviewed. Instructions given and understood by pt. PIV and telemetry device removed. Pt's belonging from safe was returned. Pt discharged via taxi service. Pt escorted to the main entrance with a wheelchair
== END 2025-04-29 16:29 | disposition home or self-care (01) ==
LOC: ED 04-26 03:50 → AC 04-26 11:03
PROVIDERS: Family Medicine; Hospitalist; Admitting Provider Internal Medicine; Emergency Provider Emergency Medicine; PCP Family Medicine; Referring Provider Emergency Medicine; Visit Provider Internal Medicine
DX: A41.9 Sepsis, unspecified organism (principal); J45.901 Unspecified asthma with (acute) exacerbation; E11.65 Type 2 diabetes mellitus with hyperglycemia; I10 Essential (primary) hypertension; E78.5 Hyperlipidemia, unspecified; M79.7 Fibromyalgia; F32.A Depression, unspecified; R93.89 Abnormal findings on diagnostic imaging of other specified body structures; Z96.41 Presence of insulin pump (external) (internal); Z79.4 Long term (current) use of insulin; Z86.73 Personal history of transient ischemic attack (TIA), and cerebral infarction without residual deficits
CPT/HCPCS: 36415; 71045; 71275; 74177; 78452; 80048; 81001; 82962; 83605; 83735; 84484; 85025; 87040; 87633; 93005; 93017; 94640; 96361; 96365; 96366; 96367; 96372; 96375; 96376; 97162; 97530; 99284; 99291; G0378; A9502; J0696; J1650; J1815; J2405; J2785; J2919

== ENCOUNTER → 2025-05-01 08:06 | Outpatient (CLI) | payer MEDICARE, MEDICAID, SELFPAY ==
[2025-04-01 23:00] VITALS: BMI 44.1
[2025-04-30 16:56] VITALS: BMI 42.3
--- NOTE | 2025-05-01 | PATH_ITS ---
Note [facility] Accession Number: [id number] TESTS RESULT FLAG UNITS REF RANGE LAB Clinician Provided Cytology Information No. of containers..01 Other (Miscellaneous) No. of containers..12 Previously Prepared Cytology Slide Source: RIGHT SUPERIOR 1 DIAGNOSIS: RIGHT SUPERIOR THYROID NODULE, 1, FINE NEEDLE ASPIRATION. INCONCLUSIVE. BETHESDA CATEGORY III. ATYPIA OF UNDETERMINED SIGNIFICANCE (AUS), SEE COMMENT. COMMENT: EXAMINATION OF THE SMEARS REVEALS A CELLULAR ASPIRATE, COMPOSED OF ABUNDANT COLLOID, MACROPHAGES AND BENIGN FOLLICULAR GROUPS WITH FOCAL HURTHLE CELL CHANGES. IN ADDITION, THERE ARE RARE GROUPS WITH MILD NUCLEAR ENLARGEMENT, OVERLAPPING AND PALLOR. INTRANUCLEAR PSEUDOINCLUSIONS ARE NOT SEEN. THE RISK OF MALIGNANCY IN THE BETHESDA CATEGORY III IS 5-15%. ADDITIONAL MOLECULAR TESTING WILL BE PERFORMED ON THE SUBMITTED RNA VIAL FOR FURTHER EVALUATION. Pathologist ICD10: 01 E04.2 Signed out by: Breann Villalta MD, Pathologist NPI- [id number] Performed by: Paul Pinedo, Dividend Deposit Entry Clerk ([facility]) Gross description: 01 30 CC, RED, HAZY Recieved in cytolyt container. Recieved 6 alcohol fixed slides in two green cap coffins. Recieved 6 stained slides in two coffins. 1 RNA vial. Expiration: Aug. [place] WONG 05/04/2025 1244 Local FLAG LEGEND: L-Low Normal,H-High Normal,LL-Alert Low,HH-Alert High <-Panic Low,>-Panic High,A-Abnormal,AA-Critical Abnormal Performed at: 01 =Z [facility], [place] [address] Den Reynaga MD, Performed at: [address], [place], [place] [id number] MD Den Reynaga MD Phone: [phone]
--- NOTE | 2025-05-01 | PATH_ITS ---
Note [facility] Accession Number: [id number] TESTS RESULT FLAG UNITS REF RANGE LAB Clinician Provided Cytology Information No. of containers..01 Other (Miscellaneous) No. of containers..10 Previously Prepared Cytology Slide Source: RIGHT INFERIOR NODUL DIAGNOSIS: RIGHT INFERIOR NODULE, FINE NEEDLE ASPIRATION. ADEQUATE FOR EVALUATION. FOLLICULAR GROUPS ARE PRESENT. BENIGN FOLLICULAR (GOITEROUS) NODULE (BETHESDA CATEGORY II), SEE COMMENT. COMMENT: MICROSCOPIC EXAMINATION REVEALS A MILDLY CELLULAR ASPIRATE, COMPOSED OF COLLOID, FOLLICULAR GROUPS WITHOUT SIGNIFICANT CYTOLOGIC OR ARCHITECTURAL ATYPIA, AND BACKGROUND MACROPHAGES. THESE FINDINGS SUPPORT A BENIGN FOLLICULAR (GOITEROUS) NODULE. CORRELATION WITH CLINICAL AND RADIOGRAPHIC FINDINGS IS RECOMMENDED. ACCORDING TO THE BETHESDA REPORTING SYSTEM FOR THYROID CYTOPATHOLOGY, THE RISK OF MALIGNANCY IN THE CATEGORY BENIGN-CATEGORY II IS 0-3%; THEREFORE RECOMMEND CONTINUED ULTRASOUND SURVEILLANCE WITH REPEAT FNA IF THE NODULE SIGNIFICANTLY INCREASES IN SIZE. Pathologist ICD10: E04.2 Signed out by: Breann Villalta MD, Pathologist NPI- [id number] Performed by: Wilmer Camacho, Masseur/Masseuse ([facility]) Gross description: 01 30 CC, RED, HAZY Recieved in cytolyt container. Recieved 5 alcohol fixed slides in two green cap coffins. Recieved 5 stained slides in two coffins. 1 RNA vial. Expiration: Aug 21, 2026 [place] /VINICIO 05/04/2025 1247 [facility] FLAG LEGEND: L-Low Normal,H-High Normal,LL-Alert Low,HH-Alert High <-Panic Low,>-Panic High,A-Abnormal,AA-Critical Abnormal Performed at: 01 =Z [facility], [place] [address] Den Reynaga MD, Performed at: [address], [place], [place] [id number] MD Den Reynaga MD Phone: [phone]
--- NOTE | 2025-05-01 08:08 | DI.US.S_ITS ---
PROCEDURE: US FINE NEEDLE ASPIRATION INDICATIONS: RT SUPERIOR NODULE #1 RIGHT INFERIOR NODULE #2 aspiration TECHNIQUE: The indications, alternatives, benefits, risks, and complications of the procedure were explained to the patient. Written informed consent was obtained and placed in the chart. The thyroid region was examined sonographically and a site was chosen for ultrasound guided percutaneous sampling. The skin was prepared and draped in the usual fashion, and anesthetized with 1% lidocaine infiltrated from the skin down to the thyroid gland. Multiple passes were then performed, with contents emptied into an appropriate pathology specimen container. A bandage was applied to the area of access at completion of the study. COMPARISON: [facility], US, US FINE NEEDLE ASPIRATION, 01/09/2024, 8:08. FINDINGS: Location(s) of lesion(s) sampled: Right superior thyroid nodule #1 measuring 1.7 cm. Ivel: 25 gauge hypodermic needles x4; 22 gauge hypodermic needles x2 Number of passes: 6 Medications: 1% lidocaine for local anaesthesia. Complications: None. Location(s) of lesion(s) sampled: Right inferior thyroid nodule #2 measuring 2.1 cm. Ivel: 25 gauge hypodermic needles x4; 22 gauge hypodermic needles x2 Number of passes: 6 Medications: 1% lidocaine for local anaesthesia. Complications: None. This nodule is very ill-defined in the radial plane. This nodule is immediately adjacent to the jugular vein and is difficult to sample. IMPRESSION: Successful ultrasound-guided thyroid nodule fine needle aspiration x2, with cytology results pending. Thyroid nodule #2 is difficult to sample given its ill-defined nature and location. Please see chart below for management recommendations based on cytology results. [facility] ReportingRecommendationsNon-diagnostic* Repeat US-guided FNA, with on-site cytology evaluation if possible. * Repeated non-diagnostic nodules without high suspicion US features: close observation vs surgical consult. * Consider surgery if nodule has high suspicion US features, grows >20% in 2 dimensions on followup, or patient has clinical risk factors for malignancy. Benign* If nodule has high suspicion US features: repeat US and FNA within 12 months. * If nodule has low to intermediate suspicion US features: repeat US at 12-24 months. If nodule grows (20% increase in at least 2 dimensions, with minimal increase of 2 mm or >50% change in volume), or development of new suspicious US features, then repeat FNA or continue followup. * If nodule has very low suspicion US features: followup US at >24 months. Atypia of undetermined significance, follicular lesion of undetermined significanceRepeat FNA, molecular testing, followup US, or surgical consult.Follicular neoplasm, suspicious for follicular neoplasmSurgical consult; also consider molecular testing. Suspicious for malignancySurgical consult.MalignantSurgical consult. Dictated by: Oscar Rodriguez M.D. on 05/01/2025 at 12:27 Approved by: Oscar Rodriguez M.D. on 05/01/2025 at 12:31
== END ==
LOC: US 08:07
PROVIDERS: PCP Family Medicine; Referring Provider Family Medicine; Visit Provider Radiology Diagnostic Radiology
DX: E04.2 Nontoxic multinodular goiter (principal)
CPT/HCPCS: 10005

== ENCOUNTER → 2025-05-20 13:08 | Outpatient (CLI) | payer MEDICARE, MEDICAID, SELFPAY ==
[2025-04-30 16:56] VITALS: BMI 42.3
== END ==
PROVIDERS: PCP Family Medicine; Referring Provider Family Medicine; Visit Provider Family Medicine
DX: J45.998 Other asthma (principal); R06.02 Shortness of breath; R94.2 Abnormal results of pulmonary function studies; R00.2 Palpitations; R42 Dizziness and giddiness; Z91.89 Other specified personal risk factors, not elsewhere classified
CPT/HCPCS: 93246; 94060; 94726; 94729

== ENCOUNTER → 2025-05-20 14:11 | Outpatient (CLI) | payer MEDICARE, MEDICAID, SELFPAY ==
[2025-04-30 16:56] VITALS: BMI 42.3
== END ==
LOC: CAR 14:11
PROVIDERS: PCP Family Medicine; Referring Provider Family Medicine; Visit Provider Family Medicine
DX: R00.2 Palpitations (principal); R06.02 Shortness of breath; R42 Dizziness and giddiness; Z91.89 Other specified personal risk factors, not elsewhere classified
CPT/HCPCS: 93246

== ENCOUNTER → 2025-06-12 11:25 | Outpatient (CLI) | payer MEDICARE, MEDICAID, SELFPAY ==
[2025-04-30 16:56] VITALS: BMI 42.3
[2025-06-12 12:50] LABS: Free T3, Triiodothyronine Free 2.91 pg/mL (2.77-5.27)
[2025-06-12 13:04] LABS: TSH w/ Reflex to FT4 0.37 uIU/mL (0.47-4.68)
[2025-06-12 13:38] LABS: Free T4, Direct Thyroxine 1.38 ng/dL (0.78-2.19)
== END ==
LOC: LAB 11:27
PROVIDERS: PCP Family Medicine; Referring Provider Family Medicine; Visit Provider Family Medicine
DX: R79.89 Other specified abnormal findings of blood chemistry (principal)
CPT/HCPCS: 36415; 84439; 84443; 84481